=== PATIENT | female | born 1945 | race Caucasian/White ===

== ENCOUNTER 2023-02-18 10:20 | Inpatient (IN) | payer MEDICARE, OTHER, SELFPAY ==
[2023-02-18] VITALS (12 sets, daily range): BP systolic 149–150; BP diastolic 63–70; PULSE 67–110; RESP 18–28; TEMP 36.7–36.8; O2SAT 94–96; BMI 24.1; BMI 25.8
--- NOTE | 2023-02-18 10:42 | ECG_ITS ---
[facility] Test Date: 2023-02-18 Pat Name: JOSE BROWN Department: Room: - Gender: Female [employer] Lead: : 1945 Requested By: Order Number: [id number] Reading MD: VIKASH PITTS Measurements Intervals [place] Rate: 99 P: 105 VA: 136 QRS: 169 QRSD: 82 T: 54 QT: 278 QTc: 334 Interpretive Statements 1100 Sinus rhythm 1470 with occasional supraventricular premature complexes [address] depression [address] & Twave abnormality 5120 Possible right ventricular hypertrophy 8305 Short QTc interval 0101 Possible arm leads reversed, check lead requested 9150 abnormal ECG No previous ECG available for comparison Electronically Signed On 02-19-2023 7:02:51 EDT by VIKASH PITTS
--- NOTE | 2023-02-18 10:48 | XR_ITS ---
The [address] [address] Patient Name: JOSE BROWN MRN: [id number] date: 1945 Sex: F Assigned Patient Location: ER Current Patient Location: ER Accession/Order Number: [id number] Exam Date: 02/18/2023 11:10 Report Date: 02/18/2023 11:24 At the request of: SARI BOWSER Procedure: XR chest 1V EXAMINATION: XR chest 1V HISTORY: shortness of breath COMPARISON: No relevant comparison available. TECHNIQUE: AP portable FINDINGS: LUNGS: No significant pulmonary parenchymal abnormalities. Linear opacity left midlung atelectasis or scar is favored VASCULATURE: No increased pulmonary vasculature. PLEURA: No pneumothorax, effusion, or pleural thickening. CARDIAC: No cardiomegaly or cardiac silhouette abnormality. MEDIASTINUM: No visible mass or adenopathy. Aortic atherosclerosis BONES: No fracture or visible bone lesion. OTHER: Negative. XR/XR chest 1V IMPRESSION: Minimal left lung atelectasis/scar Electronically authenticated by: KENDRICK CAMACHO Date: 02/18/2023 11:24
[2023-02-18 11:00] LABS: Basophils Percent Auto 0.2 % (0.2-2.0); Eosinophils Percent Auto 0.1 % (0.9-7.0); Hematocrit 30.5 % (36.0-48.0); Hemoglobin 10.1 g/dL (12.0-16.0); Immature Granulocytes Abs Auto 0.21 10^3/uL (0.00-0.03); Immature Granulocytes Pct Auto 1.1 % (0.0-0.5); Lymphocytes Percent Auto 5.6 % (20.5-60.0); Mean Corpuscular HGB Conc 33.1 g/dL (29.9-35.2); Mean Corpuscular Hemoglobin 29.8 pg (26.7-34.0); Mean Platelet Volume 9.2 fL (9.5-13.5); Monocytes Absolute Auto 1.1 10^3/uL (0.3-0.8); Monocytes Percent Auto 5.9 % (1.7-12.0); Neutrophils Absolute Auto 16.1 10^3/uL (1.4-6.5); Neutrophils Percent Auto 87.1 % (43.0-75.0); Platelet Count 478 10^3/uL (150-450); Red Blood Count 3.39 10^6/uL (4.20-5.40); Red Cell Distribution Width 15.8 % (11.0-15.0); White Blood Count 18.4 10^3/uL (4.0-11.0)
[2023-02-18 11:20] LABS: Anion Gap 13.9; BUN Creatinine Ratio 24.1; Calcium 8.9 mg/dL (8.5-10.1); Carbon Dioxide 24.7 mmol/L (21.0-32.0); Chloride 106 mmol/L (98-107); Estimated GFR (African America >60 (>=60); Estimated GFR (Non-African Ame >60 (>=60); Glucose 128 mg/dL (74-106); Sodium 142 mmol/L (136-145)
--- NOTE | 2023-02-18 11:20 | ED.SOB1 ---
HPI - SOB/Dyspnea General Chief Complaint: Shortness of Breath/Dyspnea Stated Complaint: SHORTNESS OF BREATH Time Seen by Provider: 02/18/23 10:30 Source: patient Mode of arrival: ambulance Limitations: physical limitation Limitations comment: right arm fracture, pelvic fracture History of Present Illness HPI Narrative: The patient fell and fracture her right humerus and right pelvis. She was evaluated and admitted to a hospital in [place] where the accident occurred. She refused surgery at that facility and was transferred to rehab facility in [facility]. She was supposed to have a 2pm appointment with the orthopedic surgeon to evaluate her right humerus but she developed increased shortness of breath this mornign and was brought to the ED for evaluation. She has COPD and has been getting antibiotics for pneumonia for almost 3 weeks now, she told me. no prior history of DVT or PE. Related Data Allergies Allergy/AdvReac Type Severity Reaction Status Date / Time No Known Drug Allergies Allergy Verified 02/18/23 10:35 Exam Narrative Exam Narrative: Nurses notes and vital signs reviewed and patient is not hypoxic while wearing 2LPM NC. afebrile General: Well-appearing and in no apparent distress. Skin: Warm, dry, no pallor noted. Head: Normocephalic, atraumatic. Neck: Supple, non-tender. Eye: Pupils are equal, round and EOMI. No scleral icterus. Ears, Nose, Mouth, and Throat: Oral mucosa is moist Cardiovascular: Tachycardia. Respiratory: No accessory muscle use or respiratory distress. Lungs are clear to auscultation, no wheezing, rales or rhonchi Musculoskeletal: normal ROM, no calf or popliteal tenderness, no lower extremity edema/swelling GI: Abdomen is soft, non-distended. Normal bowel sounds. No tenderness to palpation. No rebound, guarding, or rigidity noted. Neurological: A&O x4. No cranial nerve dysfunction observed. No truncal ataxia. Moves all extremities. Sensation intact. Psychiatric: Cooperative and interactive. Normal mood and affect. Constitutional Vital Signs, click to edit/add: Last Vital Signs Temp 98.2 F 02/18/23 10:30 Pulse 93 H 02/18/23 10:31 Resp 28 H 02/18/23 10:31 BP 150/66 H 02/18/23 10:31 Pulse Ox 94 L 02/18/23 10:38 O2 Del Method Nasal Cannula 02/18/23 10:38 O2 Flow Rate 2 02/18/23 10:38 Course Vital Signs Vital signs: Vital Signs Temperature 98.2 F 02/18/23 10:30 Pulse Rate 110 H 02/18/23 10:30 Respiratory Rate 24 02/18/23 10:30 Blood Pressure 150/66 H 02/18/23 10:30 Pulse Oximetry 95 02/18/23 10:30 Oxygen Delivery Method Nasal Cannula 02/18/23 10:30 Oxygen Delivery Flow Rate 2 02/18/23 10:30 Temperature 98.2 F 02/18/23 10:30 Pulse Rate 93 H 02/18/23 10:31 Respiratory Rate 28 H 02/18/23 10:31 Blood Pressure 150/66 H 02/18/23 10:31 Pulse Oximetry 94 L 02/18/23 10:38 Oxygen Delivery Method Nasal Cannula 02/18/23 10:38 Oxygen Delivery Flow Rate 2 02/18/23 10:38 MDM - SOB/Dyspnea MDM Narrative Medical decision making narrative: Patient was placed on equipment service lead and EKG obtained. Blood drawn and sent for evaluation. chest x-ray obtained. Once her kidney function was found to be exceptional for IV contrast administration, she was sent for CT angio of the chest, due to her history of fracture, immobilization and risk for clot formation. she is found to have a right lobar segmental and subsegmental pulmonary embolism, per Dr. Camacho, who called to discuss the results with me. Dr. Candelaria agreed to admit the patient to the hospital for further intervention. She will start the patient on Lovenox and the transition to oral therapy while in the hospital. The patient and family informed of results and were agreeable to admission. Lab Data Attestation: I reviewed the patient's lab results. Labs: Lab Results 02/18/23 02/18/23 02/18/23 Range/Units 10:40 12:05 12:35 WBC 18.4 H (4.0-11.0) 10^3/uL RBC 3.39 L (4.20-5.40) 10^6/uL Hgb 10.1 L (12.0-16.0) g/dL Hct 30.5 L (36.0-48.0) % MCV 90.0 (81.0-99.0) fL MCH 29.8 (26.7-34.0) pg MCHC 33.1 (29.9-35.2) g/dL RDW 15.8 H (11.0-15.0) % Plt Count 478 H (150-450) 10^3/uL MPV 9.2 L (9.5-13.5) fL Neut % (Auto) 87.1 H (43.0-75.0) % Lymph % (Auto) 5.6 L (20.5-60.0) % [place] % (Auto) 5.9 (1.7-12.0) % Eos % (Auto) 0.1 L (0.9-7.0) % Baso % (Auto) 0.2 (0.2-2.0) % Neut # (Auto) 16.1 H (1.4-6.5) 10^3/uL Lymph # (Auto) 1.0 L (1.2-3.8) 10^3/uL [place] # (Auto) 1.1 H (0.3-0.8) 10^3/uL Eos # (Auto) 0.0 (0.0-0.7) 10^3/uL Baso # (Auto) 0.0 (0.0-0.1) 10^3/uL Abs Immat Gran (auto) 0.21 H (0.00-0.03) 10^3/uL Imm/Tot Granulo (auto) 1.1 H (0.0-0.5) % Puncture Site Lr ABG pH 7.492 H (7.350-7.450) ABG pCO2 30.3 L (35.0-45.0) mmHg ABG pO2 82.2 (80.0-100.0) mmHg ABG HCO3 23.2 (22.0-26.0) mmol/L ABG O2 Saturation 97.7 % ABG Base Excess -0.1 (-2.0-2.0) mmol/L Mark Test Positive (POSITIVE) O2 Liters/Min 2 Sodium 142 (136-145) mmol/L Potassium 2.6 L* (3.5-5.1) mmol/L Chloride 106 (98-107) mmol/L Carbon Dioxide 24.7 (21.0-32.0) mmol/L Anion Gap 13.9 BUN 21.0 H (7.0-18.0) mg/dL Creatinine 0.87 (0.55-1.02) mg/dL Est GFR ( Amer) >60 (>=60) Est GFR (Non-Af Amer) >60 (>=60) BUN/Creatinine Ratio 24.1 Glucose 128 H (74-106) mg/dL Calcium 8.9 (8.5-10.1) mg/dL Troponin I High Sens 13.0 (4.0-51.3) pg/mL NT-Pro-B Natriuret Pep 1224.0 (<=1800.0) pg/mL SARS-CoV-2 (PCR) Negative (NEGATIVE) ABG Data Attestation: I have reviewed the pertinent ABG results. Imaging Data Chest x-ray: Radiologist's impression: Patient Name: JOSE BROWN MRN: [facility]:[id number] date: 1945 Sex: F Assigned Patient Location: ER Current Patient Location: ER Accession/Order Number: [id number] Exam Date: 02/18/2023 11:10 Report Date: 02/18/2023 11:24 At the request of: SARI BOWSER Procedure: XR chest 1V EXAMINATION: XR chest 1V HISTORY: shortness of breath COMPARISON: No relevant comparison available. TECHNIQUE: AP portable FINDINGS: LUNGS: No significant pulmonary parenchymal abnormalities. Linear opacity left midlung atelectasis or scar is favored VASCULATURE: No increased pulmonary vasculature. PLEURA: No pneumothorax, effusion, or pleural thickening. CARDIAC: No cardiomegaly or cardiac silhouette abnormality. MEDIASTINUM: No visible mass or adenopathy. Aortic atherosclerosis BONES: No fracture or visible bone lesion. OTHER: Negative. IMPRESSION: Minimal left lung atelectasis/scar Electronically authenticated by: KENDRICK CAMACHO Date: 02/18/2023 11:24 CT scan - chest: Radiologist's impression: Patient Name: JOSE BROWN MRN: [facility]:[id number] date: 1945 Sex: F Assigned Patient Location: ER Current Patient Location: ER Accession/Order Number: [id number] Exam Date: 02/18/2023 12:12 Report Date: 02/18/2023 12:59 At the request of: SARI BOWSER Procedure: CT angio chest EXAMINATION: CT angio chest HISTORY: shortness of breath, hx fracture and immobility COMPARISON: No relevant comparison available. TECHNIQUE: Multi-planar CT images were created with IV contrast. Axial, Coronal, and Sagittal images. Dose reduction techniques were achieved by using automated exposure control and/or adjustment of mA and/or kV according to patient size and/or use of iterative reconstruction technique. FINDINGS: LUNGS: Calcified tracheobronchial tree. Mild diffuse centrilobular emphysema with an upper lobe predominance. Scattered subcentimeter pulmonary nodules the largest is mildly spiculated measuring 8 mm right upper lobe axial image #17. Partial consolidation of both lower lobes PLEURA: 1.7 cm right and 2.1 cm left pleural effusions VASCULATURE: Multiple filling defects demonstrated in the right lobar segmental and subsegmental pulmonary arteries. Minimal filling defect left lower lobe subsegmental pulmonary arteries MORGAN: No mass or adenopathy. MEDIASTINUM: No mass or adenopathy. CARDIAC: No enlargement, pericardial thickening, or significant calcification. AORTA: No aortic aneurysm or dissection. Mild atherosclerosis CHEST WALL: No mass or axillary adenopathy. BONES: Complex right humeral head fracture LIMITED ABDOMEN: Diffuse hypoattenuation of the liver, hepatic steatosis. Bilateral extrarenal pelvis/hydronephrosis only partially visualized OTHER: Findings discussed with Dr. bowser by telephone 12:59 PM IMPRESSION: Moderate right sided pulmonary emboli without evidence of right ventricular strain Electronically authenticated by: KENDRICK CAMACHO Date: 02/18/2023 12:59 ECG Data Interpretation: EKG interpretation: Emergency Department physician interpretation. Normal sinus rhythm at 99bpm. right ventricular hypertrophy, short QTc interval, nonspecific ST-T wave changes. No ST segment elevation or depression. Discharge Plan Discharge Chief Complaint: Shortness of Breath/Dyspnea Clinical Impression: Pulmonary embolism Patient Disposition: Admitted As Inpatient Time of Disposition Decision: 13:43 Additional Instructions: Dr Candelaria, med/surg w telemetry
[2023-02-18 11:27] LABS: Potassium 2.6 mmol/L (3.5-5.1)
[2023-02-18 12:16] LABS: ABG PCO2 30.3 mmHg (35.0-45.0); pH ABG 7.492 (7.350-7.450)
[2023-02-18 12:17] LABS: Allen Test POSITIVE (POSITIVE); Base Excess ABG -0.1 mmol/L (-2.0-2.0); HCO3 ABG 23.2 mmol/L (22.0-26.0); Liters per Minute 2; O2 Mode NC; Oxygen Saturation ABG 97.7 %; PO2 ABG 82.2 mmHg (80.0-100.0); Puncture Site LR
--- NOTE | 2023-02-18 12:20 | CT_ITS ---
The [address] [address] Patient Name: JOSE BROWN MRN: [facility]:[id number] date: 1945 Sex: F Assigned Patient Location: ER Current Patient Location: ER Accession/Order Number: [id number] Exam Date: 02/18/2023 12:12 Report Date: 02/18/2023 12:59 At the request of: SARI BOWSER Procedure: CT angio chest EXAMINATION: CT angio chest HISTORY: shortness of breath, hx fracture and immobility COMPARISON: No relevant comparison available. TECHNIQUE: Multi-planar CT images were created with IV contrast. Axial, Coronal, and Sagittal images. Dose reduction techniques were achieved by using automated exposure control and/or adjustment of mA and/or kV according to patient size and/or use of iterative reconstruction technique. FINDINGS: LUNGS: Calcified tracheobronchial tree. Mild diffuse centrilobular emphysema with an upper lobe predominance. Scattered subcentimeter pulmonary nodules the largest is mildly spiculated measuring 8 mm right upper lobe axial image #17. Partial consolidation of both lower lobes PLEURA: 1.7 cm right and 2.1 cm left pleural effusions VASCULATURE: Multiple filling defects demonstrated in the right lobar segmental and subsegmental pulmonary arteries. Minimal filling defect left lower lobe subsegmental pulmonary arteries MORGAN: No mass or adenopathy. MEDIASTINUM: No mass or adenopathy. CARDIAC: No enlargement, pericardial thickening, or significant calcification. AORTA: No aortic aneurysm or dissection. Mild atherosclerosis CHEST WALL: No mass or axillary adenopathy. BONES: Complex right humeral head fracture LIMITED ABDOMEN: Diffuse hypoattenuation of the liver, hepatic steatosis. Bilateral extrarenal pelvis/hydronephrosis only partially visualized OTHER: Findings discussed with Dr. bowser by telephone 12:[address]/CT angio chest IMPRESSION: Moderate right sided pulmonary emboli without evidence of right ventricular strain Electronically authenticated by: KENDRICK CAMACHO Date: 02/18/2023 12:59
[2023-02-18 13:05] LABS: SARS-CoV-2 Ag NEGATIVE (NEGATIVE)
[2023-02-18] MEDS: POTASSIUM CHLORIDE 10 MEQ ER TABLET 40 MEQ PO (14:25)
--- NOTE | 2023-02-18 14:25 | P.HP_ITS ---
H&P: HPI History of Present Illness Chief complaint: SHORTNESS OF BREATH, PULMONARY EMBOLISM Narrative: patient is a 77-year-old female with a recent humeral head fracture hip fracture and pelvic fracture after falling in [facility] several weeks ago. She was admitted to a hospital in [place] for about two weeks and was recently transferred back home to the [place] where she has been doing rehab. She was supposed to be seeing her orthopedic doctor for further evaluation today when she became more short of breath after getting a breathing treatment. They found her to be more hypoxic and she was sent to the Emergency Room. She was found to have a rate sided pulmonary embolus was placed on oxygen and was asked we were asked to admit for further evaluation. She has been pretty immobile since her multiple fractures she had been getting her for lactic heparin at the rehab facility. She denies any past history of deep vein thromboses or PEs. Discussed with the family who is also present that we'll place her on therapeutic Lovenox and bridge her over to L [place], echocardiogram is pending. Intending pain control for fractures. At the time of exam patient is very pleasant and appears in no acute respiratory distress she denies any current issues. Review of Systems ROS Narrative ROS: a complete review of systems were reviewed with patient and are positive as below or listed in History of Chief Complaint. General: no fever, chills, night sweats Head: no headache, trauma, visual changes, nausea or vomiting Skin: no reported rashes, itching or sores Eyes: no blurriness of vision Ears: no reported hearing loss, vertigo, earache, or tinnitus Throat: no sore throat, hoarseness, swelling of neck, or tongue pain Heart: no chest pain Lungs: shortness of breath GI: no diarrhea or vomiting/nausea Urinary: no urinary urgency, frequency or pain Neuro: no numbness or tingling HEM: no bleeding issues or bruising ENDO: no thyroid problems Psych: no anxiety or depression Meds Home Medications and Allergies Home Medications Medication Instructions Recorded Confirmed Type albuterol sulfate 2.5 mg/3 mL 2.5 mg inhalation QID PRN 02/18/23 02/18/23 History (0.083 %) solution for nebulization shortness of breath or wheezing albuterol sulfate 90 mcg/actuation 2 inh inhalation Q6H PRN shortness 02/18/23 02/18/23 History breath activated powder inhaler of breath or wheezing atorvastatin 20 mg tablet 20 mg PO DAILY 02/18/23 02/18/23 History cholecalciferol (vitamin D3) 25 2,000 unit PO DAILY 02/18/23 02/18/23 History mcg (1,000 unit) capsule fluticasone fur. 200 mcg-umeclid 1 inh inhalation Q24H 02/18/23 02/18/23 History 62.5 mcg-vilant 25 mcg inhalat.powder (Trelegy Ellipta) heparin (porcine) 5,000 unit/mL (1 5,000 unit subcut Q12H 02/18/23 02/18/23 History mL) injection cartridge loratadine 10 mg tablet (Allergy 10 mg PO DAILY 02/18/23 02/18/23 History Relief (loratadine)) promethazine 25 mg tablet 25 mg PO .QD PRN nausea 02/18/23 02/18/23 History Allergies Allergy/AdvReac Type Severity Reaction Status Date / Time No Known Drug Allergies Allergy Verified 02/18/23 10:35 Exam Narrative Exam Narrative: General: Patient is alert, and oriented to person, place and time with normal affect, proper hygiene Skin: multiple ecchymoses Head: atraumatic, acephalic Eyes: PERRLA, no nystagmus present, conjunctiva clear, no scleral icterus Ears: normal Tympanic Membrane, normal gross auditory acuity Nose: symmetric, no discharge, no maxillary or frontal sinus tenderness Mouth/Throat: no erythema, exudate, or tonsillar enlargement, normal dentition Neck: no masses palpated, normal thyroid, no JVD or audible carotid bruits Heart: Normal rate and rhythm, no murmurs/rubs/gallops Lungs: no audible wheezes, crackles and normal breath sounds all lung recinos Abdomen: Normal audible bowel sounds, no distension, No palpable masses, no organomegaly, no rebound/guarding/ or rigidity Musculoskeletal: right arm is in immobilizer Vascular: Normal carotid, radial, femoral, posterior tibial, and dorsalis pedis pulses Lymph: no supraclavicular, axillary, or anterior/posterior cervical adenopathy Neuro: CN II-X grossly intact, normal sensation upper and lower extremities Constitutional Vital Signs, click to edit/add: Last Vital Signs Temp 98.2 F 02/18/23 10:30 Pulse 89 02/18/23 10:31 Resp 26 H 02/18/23 10:31 BP 150/66 H 02/18/23 10:31 Pulse Ox 94 L 02/18/23 10:38 O2 Del Method Nasal Cannula 02/18/23 10:38 O2 Flow Rate 2 02/18/23 10:38 Results Labs Labs: Short CBC 02/18/23 Range/Units 10:40 WBC 18.4 H (4.0-11.0) 10^3/uL Hgb 10.1 L (12.0-16.0) g/dL Hct 30.5 L (36.0-48.0) % Plt Count 478 H (150-450) 10^3/uL BMP 02/18/23 10:40 Sodium 142 Potassium 2.6 L* Chloride 106 Carbon Dioxide 24.7 BUN 21.0 H Creatinine 0.87 Glucose 128 H Calcium 8.9 ABG ABG results: 02/18/23 12:05 ABG pH 7.492 H ABG pCO2 30.3 L ABG pO2 82.2 ABG HCO3 23.2 ABG O2 Saturation 97.7 ABG Base Excess -0.1 Assessment and Plan Assessment and Plan (1) Pulmonary embolism: Assessment and Plan: will place on therapeutic Lovenox and bridged to Eliquis tomorrow.oxygen therapy as needed placed was placed on telemetry echocardiogram pending (2) Closed fracture of anatomical neck of humerus: Assessment and Plan: continue pain control and will follow up with [facility] outpatient (3) Pelvic fracture: Assessment and Plan: see #2 (4) Hyperlipidemia: Assessment and Plan: continue atorvastatin Plan patient is a full code Patient is getting Lovenox therapeutic dose for active PE Patient is placed in observation status and is not expected to stay more than two midnights
--- NOTE | 2023-02-18 16:14 | SWNOTE1 ---
Pt is from [facility].
[2023-02-18] MEDS: ENOXAPARIN SODIUM 80 MG/0.8 ML SYRINGE 65 MG SUBQ (18:05)
[2023-02-18] MEDS: POTASSIUM CHLORIDE IN 0.9%NACL 1,000 ML 100 MEQ IV (18:05)
[2023-02-18] MEDS: ACETAMINOPHEN 325 MG TABLET PO (19:45)
[2023-02-18 19:51] LABS: Lactate/Lactic Acid 2.5 mmol/L (0.4-2.0)
[2023-02-18] MEDS: IPRATROPIUM/ALBUTEROL SULFATE 3 ML AMPUL.NEB IH (22:24)
[2023-02-18] MEDS: BUDESONIDE 0.5 MG/2 ML AMPULE NEB IH (22:24)
[2023-02-19] VITALS (14 sets, daily range): BP systolic 125–128; BP diastolic 59–62; PULSE 86–111; RESP 18–20; TEMP 36.6–36.9; O2SAT 92–98
[2023-02-19] MEDS: DIPHENHYDRAMINE HCL 50 MG/ML (1ML) VIAL 25 MG IV (04:09)
[2023-02-19] MEDS: POTASSIUM CHLORIDE IN 0.9%NACL 1,000 ML 100 MEQ IV (04:10)
[2023-02-19 05:34] LABS: A. calcoaceticus-baumannii Cpx NOT DETECTED (NOT DETECTE); Bacteroides fragilis NOT DETECTED (NOT DETECTE); Candida albicans NOT DETECTED (NOT DETECTE); Candida auris NOT DETECTED (NOT DETECTE); Candida glabrata NOT DETECTED (NOT DETECTE); Candida krusei NOT DETECTED (NOT DETECTE); Candida parapsilosis NOT DETECTED (NOT DETECTE); Candida tropicalis NOT DETECTED (NOT DETECTE); Cryptococcus neoformans/gattii NOT DETECTED (NOT DETECTE); Enterobacter cloacae complex NOT DETECTED (NOT DETECTE); Enterobacterales NOT DETECTED (NOT DETECTE); Enterococcus faecalis NOT DETECTED (NOT DETECTE); Enterococcus faecium NOT DETECTED (NOT DETECTE); Haemophilus influenzae NOT DETECTED (NOT DETECTE); Klebsiella aerogenes NOT DETECTED (NOT DETECTE); Klebsiella pneumoniae group NOT DETECTED (NOT DETECTE); Listeria monocytogenes NOT DETECTED (NOT DETECTE); Neisseria meningitidis NOT DETECTED (NOT DETECTE); Proteus spp. NOT DETECTED (NOT DETECTE); Pseudomonas aeruginosa NOT DETECTED (NOT DETECTE); Salmonella spp. NOT DETECTED (NOT DETECTE); Serratia marcescens NOT DETECTED (NOT DETECTE); Staphylococcus epidermidis NOT DETECTED (NOT DETECTE); Staphylococcus lugdunensis NOT DETECTED (NOT DETECTE); Stenotrophomonas maltophilia NOT DETECTED (NOT DETECTE); Streptococcus agalactiae NOT DETECTED (NOT DETECTE); Streptococcus pneumoniae NOT DETECTED (NOT DETECTE); Streptococcus pyogenes NOT DETECTED (NOT DETECTE); Streptococcus spp. NOT DETECTED (NOT DETECTE)
[2023-02-19] MEDS: ENOXAPARIN SODIUM 80 MG/0.8 ML SYRINGE 65 MG SUBQ (05:36)
[2023-02-19] MEDS: IPRATROPIUM/ALBUTEROL SULFATE 3 ML AMPUL.NEB IH ×2 (05:56→12:13)
[2023-02-19 06:12] LABS: Basophils Percent Auto 0.2 % (0.2-2.0); Eosinophils Absolute Auto 0.1 10^3/uL (0.0-0.7); Eosinophils Percent Auto 0.3 % (0.9-7.0); Hematocrit 26.6 % (36.0-48.0); Hemoglobin 8.5 g/dL (12.0-16.0); Immature Granulocytes Abs Auto 0.19 10^3/uL (0.00-0.03); Immature Granulocytes Pct Auto 1.1 % (0.0-0.5); Lymphocytes Absolute Auto 1.5 10^3/uL (1.2-3.8); Lymphocytes Percent Auto 8.2 % (20.5-60.0); Mean Corpuscular Hemoglobin 29.3 pg (26.7-34.0); Mean Corpuscular Volume 91.7 fL (81.0-99.0); Mean Platelet Volume 9.5 fL (9.5-13.5); Monocytes Absolute Auto 1.1 10^3/uL (0.3-0.8); Monocytes Percent Auto 5.9 % (1.7-12.0); Neutrophils Absolute Auto 15.1 10^3/uL (1.4-6.5); Neutrophils Percent Auto 84.3 % (43.0-75.0); Platelet Count 401 10^3/uL (150-450); Red Cell Distribution Width 16.1 % (11.0-15.0); White Blood Count 17.9 10^3/uL (4.0-11.0)
[2023-02-19 06:28] LABS: INR 1.03; Prothrombin Time 10.9 sec (9.0-11.6)
[2023-02-19 06:34] LABS: Alanine Aminotransferase 39 U/L (14-59); Albumin Globulin Ratio 0.5; Albumin Level 2.1 g/dL (3.4-5.0); Alkaline Phosphatase 120 U/L (46-116); Anion Gap 12.1; Aspartate Amino Transferase 22 U/L (15-37); BUN Creatinine Ratio 24.7; Bilirubin Total 0.5 mg/dL (0.2-1.0); Calcium 8.4 mg/dL (8.5-10.1); Carbon Dioxide 22.1 mmol/L (21.0-32.0); Chloride 112 mmol/L (98-107); Estimated GFR (African America >60 (>=60); Estimated GFR (Non-African Ame >60 (>=60); Globulin 4.5 g/dL; Glucose 87 mg/dL (74-106); Potassium 3.2 mmol/L (3.5-5.1); Sodium 143 mmol/L (136-145); Total Protein 6.6 g/dL (6.4-8.2)
[2023-02-19 06:56] LABS: Staphylococcus spp. DETECTED (NOT DETECTE)
--- NOTE | 2023-02-19 07:08 | CA_ITS ---
Patient: JOSE BROWN Exam Date: 02/19/2023 : 1945 Gender:F Ordering : OG BRICEÑO . Admission #: [id number] Family : MIGUEL CAMPOS Order #: [id number] CLICK HERE TO VIEW EXAM ECHOCARDIOGRAM REPORT PROCEDURE: CA ECHO DOPPLER COMPLETE INDICATIONS: new onset pulmonary embolism COMPARISON: None. DESCRIPTION: COMPLETE ECHOCARDIOGRAM Real-time transthoracic echocardiography with 2D, M-mode, spectral and color flow Doppler performed. QUALITY: Technical quality was good. LEFT VENTRICLE: Normal chamber size. Normal left ventricular wall thickness. Global left ventricular systolic function is normal. LV EF: Estimated left ventricular ejection fraction is 60-65%. DIASTOLIC: Normal diastolic function. ATRIAL SEPTUM: LEFT ATRIUM: Normal chamber size. RIGHT ATRIUM: Normal chamber size. RIGHT VENTRICLE: Normal chamber size. Normal right ventricular systolic function. TRICUSPID VALVE: Normal mobility and thickness. No stenosis with trivial regurgitation. Moderate pulmonary hypertension. RVSP 50 mmHg MITRAL VALVE: Normal mobility and thickness. No evidence of mitral valve stenosis. There is no mitral annular calcification. Trivial mitral regurgitation. AORTIC VALVE: Normal trileaflet appearance. No visible sclerosis. Normal leaflet mobility. No evidence of aortic valve stenosis. DVI 0.6No aortic regurgitation. AORTIC ROOT: Normal diameter and appearance. PULMONIC VALVE: Normal thickness and mobility. No stenosis. No regurgitation. PERICARDIUM: No evidence of pericardial effusion. IVC: Collapses with inspirations. Normal size. PLEURA: CONCLUSION: 1. Normal left ventricular systolic function. LVEF is 60 to 65%. 2. Normal right ventricular size and systolic function. 3. Normal diastolic function. 4. No significant valvular dysfunction. 5. Moderately elevated right-sided pressures. RVSP is 50 mmHg. Adult Echocardiography Procedure Report Left Ventricle LVEDD (3.7 - 5.6 cm): 4.30 cm LVESD (2.2 - 4.0 cm): 2.55 cm LVIVS thickness (0.6 - 1.2 cm): 0.90 cm LVPW thickness (0.5 - 1.0 cm): 0.77 cm e': 0.14 m/s E - e': 4.73 LVOT Max Gradient: 3.92 mm[Hg], 3.45 mm[Hg] LVOT Area (cm2): 0.96 m/s Peak Velocity (LVOT): 0.99 m/s, 0.93 m/s Mean Velocity (LVOT): 0.70 m/s LVOT Diameter 1.78 cm Left Ventricular Ejection Fraction: 62.94 % Left Atrium LA Volume Index (2D A2C): 24.81 ml/m2 Left Atrium Systolic Dimension: 2.92 cm Mitral Valve MV E to A Ratio: 1.03 Mitral Valve A-Wave Peak Velocity: 0.64 m/s Mitral Valve E-Wave Peak Velocity: 0.66 m/s Right Ventricle RV Internal Diastolic Dimension: 4.00 cm Aorta AO Root Diam: 3.12 cm Ascending Ao Diam: 2.62 cm Aortic Valve AoV Area ([place]): 1.45 cm2, 1.46 cm2, 1.45 cm2 AoV Area (VTI): 1.44 cm2, 1.46 cm2, 1.42 cm2 Peak Velocity(Antegrade Flow): 1.69 m/s, 1.59 m/s Peak Gradient(Antegrade Flow): 11.39 mm[Hg], 10.12 mm[Hg] Mean Velocity(Antegrade Flow): 1.11 m/s, 1.09 m/s Mean Gradient(Antegrade Flow): 5.62 mm[Hg], 5.40 mm[Hg] Velocity Time Integral: 29.55 cm, 30.18 cm Tricuspid Valve Peak Velocity (Regurgitant Flow): 3.18 m/s, 3.44 m/s, 3.32 m/s, 3.37 m/s Pulmonic Valve Mean Gradient: 3.08 mm[Hg], 3.55 mm[Hg] Mean Velocity: 0.82 m/s, 0.89 m/s Peak Velocity: 1.21 m/s, 1.22 m/s Peak Gradient: 5.92 mm[Hg], 5.83 mm[Hg], 5.83 mm[Hg] Right Atrium Right Atrium Systolic Pressure: 67.44 ml, 67.44 ml Dictated by: Marcelo Marvin M.D. on 02/20/2023 at 17:00 Approved by: Marcelo Marvin M.D. on 02/20/2023 at 17:03
--- NOTE | 2023-02-19 09:24 | PM.DS1 ---
DS: Providers Provider Date of admission: 02/18/23 13:53 Primary care physician: Non-Staff Physician, Admitting clinician: Anushka Candelaria Consults: 02/18/23 14:16 Occupational Therapy Eval and Treat Routine Physical Therapy Eval and Treat Routine Discharging clinician: Anushka Candelaria DS: Diagnosis Discharge Diagnosis (1) Pulmonary embolism: (2) Closed fracture of anatomical neck of humerus: (3) Pelvic fracture: (4) Hyperlipidemia: Plan patient is a 77-year-old female with a recent humeral head fracture hip fracture and pelvic fracture after falling in [facility] [address] [facility] several weeks ago. She was admitted to a hospital in [place] for about two weeks and was recently transferred back home to the [place] where she has been doing rehab. She was supposed to be seeing her orthopedic doctor for further evaluation today when she became more short of breath after getting a breathing treatment. They found her to be more hypoxic and she was sent to the Emergency Room. She was found to have a rate sided pulmonary embolus was placed on oxygen and was asked we were asked to admit for further evaluation. She has been pretty immobile since her multiple fractures she had been getting her for lactic heparin at the rehab facility. She denies any past history of deep vein thromboses or PEs. Discussed with the family who is also present that we'll place her on therapeutic Lovenox and bridge her over to L [place], echocardiogram is pending. Intending pain control for fractures. At the time of exam patient is very pleasant and appears in no acute respiratory distress she denies any current issues. no overnight issues reported. DS: Summary Hospital Course Hospital Course: (1) Pulmonary embolism: ?Assessment and Plan: will place on therapeutic Lovenox and bridged to Eliquis will need to continue this for 6 months. (2) Closed fracture of anatomical neck of humerus: ?Assessment and Plan: continue pain control and will follow up with [facility] (3) Pelvic fracture: ?Assessment and Plan: see #2 (4) Hyperlipidemia: ?Assessment and Plan: continue atorvastatin return to nursing rehab facility today, will follow results of echo. positive blood culture for staph, most likely contaminent. Time Spent with Patient Time attestation: Total time spent providing and/or coordinating discharge services: Exam Narrative Exam Narrative: General: Patient is alert, and oriented to person, place and time with normal affect, proper hygiene Skin: multiple ecchymoses Heart: Normal rate and rhythm, no murmurs/rubs/gallops Lungs: no audible wheezes, crackles and normal breath sounds all lung recinos Abdomen: Normal audible bowel sounds, no distension, No palpable masses, no organomegaly, no rebound/guarding/ or rigidity Musculoskeletal: right arm is in immobilizer Vascular: Normal carotid, radial, femoral, posterior tibial, and dorsalis pedis pulses Lymph: no supraclavicular, axillary, or anterior/posterior cervical adenopathy Neuro: CN II-X grossly intact, normal sensation upper and lower extremities Constitutional Vital Signs, click to edit/add: Last Vital Signs Temp 98.5 F 02/19/23 05:25 Pulse 107 H 02/19/23 07:53 Resp 20 02/19/23 06:02 BP 125/59 H 02/19/23 05:25 Pulse Ox 97 02/19/23 06:02 O2 Del Method Nasal Cannula 02/19/23 06:02 O2 Flow Rate 2 02/19/23 06:02 DS: Data Data Completed and Pending Labs on day of discharge: Labs from last 24 hours 02/19/23 02/18/23 02/18/23 06:00 19:15 12:35 WBC 17.9 H RBC 2.90 L Hgb 8.5 L Hct 26.6 L MCV 91.7 MCH 29.3 MCHC 32.0 RDW 16.1 H Plt Count 401 MPV 9.5 Neut % (Auto) 84.3 H Lymph % (Auto) 8.2 L [place] % (Auto) 5.9 Eos % (Auto) 0.3 L Baso % (Auto) 0.2 Neut # (Auto) 15.1 H Lymph # (Auto) 1.5 [place] # (Auto) 1.1 H Eos # (Auto) 0.1 Baso # (Auto) 0.0 Abs Immat Gran (auto) 0.19 H Imm/Tot Granulo (auto) 1.1 H PT 10.9 INR 1.03 APTT <22.3 L Puncture Site ABG pH ABG pCO2 ABG pO2 ABG HCO3 ABG O2 Saturation ABG Base Excess Mark Test O2 Liters/Min Sodium 143 Potassium 3.2 L Chloride 112 H Carbon Dioxide 22.1 Anion Gap 12.1 BUN 21.0 H Creatinine 0.85 Est GFR ( Amer) >60 Est GFR (Non-Af Amer) >60 BUN/Creatinine Ratio 24.7 Glucose 87 Lactate 2.5 H* Calcium 8.4 L Total Bilirubin 0.5 AST 22 ALT 39 Alkaline Phosphatase 120 H Troponin I High Sens NT-Pro-B Natriuret Pep Total Protein 6.6 Albumin 2.1 L Globulin 4.5 Albumin/Globulin Ratio 0.5 Sam H. influenza (PCR) A.calcoaceticus-baumannii cmplx PCR Bacteroides fragilis Noemí albicans (PCR) Noemí auris (PCR) C. glabrata (PCR) C. krusei (PCR) C. parapsilosis (PCR) C. tropicalis (PCR) SARS-CoV-2 (PCR) Negative C. neoform/gattii (PCR) Enterobacterales (PCR) E. cloacae complex PCR Enterococc faecalis PCR Enterococc faecium PCR E. coli (PCR) Klebsiella aerogenes (PCR) Klebsiella oxytoca PCR K. pneumoniae group (PCR) List. monocytogenes PCR N. meningitidis (PCR) Proteus spp. (copies/mL) Salmonella spp. (PCR) Serratia marcescens PCR Staphylococcus sp PCR Staph aureus (PCR) mecA/C & MREJ Resist Gene mecA/C-Methicil Resis Gene mcr-1 Colistin Res Gene PCR Staph epidermidis (PCR) Staph lugdunensis (TEM-PCR) S. maltophilia (PCR) Streptococcus sp PCR Strep agalactiae (PCR) Strep pneumoniae (PCR) S. pyogenes (PCR) P. aeruginosa (PCR) Pepe/B-Vanco Res Genes blaIMP Car res Gene PCR KPC (blaKPC) Detect PCR NDM (blaNDM) Detect PCR OXA-48 Carbapenem Resis Gene (PCR) blaVIM Car Res Gene PCR CTX-M ESBL (PCR) 02/18/23 02/18/23 12:05 10:40 WBC 18.4 H RBC 3.39 L Hgb 10.1 L Hct 30.5 L MCV 90.0 MCH 29.8 MCHC 33.1 RDW 15.8 H Plt Count 478 H MPV 9.2 L Neut % (Auto) 87.1 H Lymph % (Auto) 5.6 L [place] % (Auto) 5.9 Eos % (Auto) 0.1 L Baso % (Auto) 0.2 Neut # (Auto) 16.1 H Lymph # (Auto) 1.0 L [place] # (Auto) 1.1 H Eos # (Auto) 0.0 Baso # (Auto) 0.0 Abs Immat Gran (auto) 0.21 H Imm/Tot Granulo (auto) 1.1 H PT INR APTT Puncture Site Lr ABG pH 7.492 H ABG pCO2 30.3 L ABG pO2 82.2 ABG HCO3 23.2 ABG O2 Saturation 97.7 ABG Base Excess -0.1 Mark Test Positive O2 Liters/Min 2 Sodium 142 Potassium 2.6 L* Chloride 106 Carbon Dioxide 24.7 Anion Gap 13.9 BUN 21.0 H Creatinine 0.87 Est GFR ( Amer) >60 Est GFR (Non-Af Amer) >60 BUN/Creatinine Ratio 24.1 Glucose 128 H Lactate Calcium 8.9 Total Bilirubin AST ALT Alkaline Phosphatase Troponin I High Sens 13.0 NT-Pro-B Natriuret Pep 1224.0 Total Protein Albumin Globulin Albumin/Globulin Ratio Sam H. influenza (PCR) Not detected A.calcoaceticus-baumannii cmplx PCR Not detected Bacteroides fragilis Not detected Noemí albicans (PCR) Not detected Noemí auris (PCR) Not detected C. glabrata (PCR) Not detected C. krusei (PCR) Not detected C. parapsilosis (PCR) Not detected C. tropicalis (PCR) Not detected SARS-CoV-2 (PCR) C. neoform/gattii (PCR) Not detected Enterobacterales (PCR) Not detected E. cloacae complex PCR Not detected Enterococc faecalis PCR Not detected Enterococc faecium PCR Not detected E. coli (PCR) Not detected Klebsiella aerogenes (PCR) Not detected Klebsiella oxytoca PCR Not detected K. pneumoniae group (PCR) Not detected List. monocytogenes PCR Not detected N. meningitidis (PCR) Not detected Proteus spp. (copies/mL) Not detected Salmonella spp. (PCR) Not detected Serratia marcescens PCR Not detected Staphylococcus sp PCR Detected A* Staph aureus (PCR) Not detected mecA/C & MREJ Resist Gene Not applicable mecA/C-Methicil Resis Gene Not applicable mcr-1 Colistin Res Gene PCR Not applicable Staph epidermidis (PCR) Not detected Staph lugdunensis (TEM-PCR) Not detected S. maltophilia (PCR) Not detected Streptococcus sp PCR Not detected Strep agalactiae (PCR) Not detected Strep pneumoniae (PCR) Not detected S. pyogenes (PCR) Not detected P. aeruginosa (PCR) Not detected Pepe/B-Vanco Res Genes Not applicable blaIMP Car res Gene PCR Not applicable KPC (blaKPC) Detect PCR Not applicable NDM (blaNDM) Detect PCR Not applicable OXA-48 Carbapenem Resis Gene (PCR) Not applicable blaVIM Car Res Gene PCR Not applicable CTX-M ESBL (PCR) Not applicable Discharge Plan Discharge Discharge Medications: New Eliquis 5 mg Tablet 5 mg PO BID Qty: 60 0RF Continued atorvastatin 20 mg tablet 20 mg PO DAILY Trelegy Ellipta 200-62.5-25 mcg blister with device 1 inh inhalation Q24H cholecalciferol (vitamin D3) 25 mcg (1,000 unit) capsule 2,000 unit PO DAILY promethazine 25 mg tablet 25 mg PO .QD PRN (Reason: nausea) albuterol sulfate 90 mcg/actuation aerosol powdr breath activated 2 inh inhalation Q6H PRN (Reason: shortness of breath or wheezing) loratadine [Allergy Relief (loratadine)] 10 mg tablet 10 mg PO DAILY albuterol sulfate 2.5 mg /3 mL (0.083 %) solution for nebulization 2.5 mg inhalation QID PRN (Reason: shortness of breath or wheezing) Discontinued heparin (porcine) 5,000 unit/mL (1 mL) cartridge 5,000 unit subcut Q12H 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 Forms: Portal Instructions Follow Up Appointments: return to [facility] and keep follow up appts as scheduled
[2023-02-19] MEDS: CHOLECALCIFEROL (VITAMIN D3) 25 MCG/1,000 UNITS TABLET 50 MCG PO (09:42)
[2023-02-19] MEDS: APIXABAN 5 MG TABLET PO (09:42)
[2023-02-19] MEDS: CETIRIZINE HCL 10 MG TABLET PO (09:46)
[2023-02-19] MEDS: BUDESONIDE 0.5 MG/2 ML AMPULE NEB IH (12:13)
--- NOTE | 2023-02-19 12:17 | RESP.RT ---
Pt placed on Room air trial
--- NOTE | 2023-02-19 13:32 | CM.NOTE ---
Rounds made with Dr. Candelaria, pt will discharge back to [facility] today and continue skilled rehab.
--- NOTE | 2023-02-19 14:52 | CM.NOTE ---
Important Message From Medicare discussed with pt, pt verbalizes understanding and signs paper. Original given to pt and copy placed on pt's chart.
[2023-02-19 15:49] LABS: SARS-CoV-2 NAA NOT DETECTED (NOT DETECTE)
== END 2023-02-19 16:50 | DRG 176 ==
LOC: ER 13:44 → MS 13:55
PROVIDERS: Admitting Provider Family Medicine; Emergency Provider Emergency Medicine; Visit Provider Internal Medicine
DX: I26.93 Single subsegmental thrombotic pulmonary embolism without acute cor pulmonale (principal); J44.9 Chronic obstructive pulmonary disease, unspecified; E78.5 Hyperlipidemia, unspecified; S42.291D Other displaced fracture of upper end of right humerus, subsequent encounter for fracture with routine healing; S32.9XXD Fracture of unspecified parts of lumbosacral spine and pelvis, subsequent encounter for fracture with routine healing; W19.XXXD Unspecified fall, subsequent encounter; Z79.51 Long term (current) use of inhaled steroids; Z79.899 Other long term (current) drug therapy; Z79.01 Long term (current) use of anticoagulants; Z87.01 Personal history of pneumonia (recurrent)
CPT/HCPCS: 36415; 36600; 71045; 71275; 80048; 80053; 82805; 83605; 83880; 84484; 85025; 85610; 85730; 87040; 87070; 87150; 87186; 87205; 87635; 87811; 93005; 93306; 94640; 94667; 94668; 94761; 96365; 96366; 96372; 96375; 97110; 97161; 99285; Q9967

== ENCOUNTER 2023-05-02 16:01 | Emergency (ER) | payer MEDICARE, OTHER, SELFPAY ==
[2023-05-02 16:03] VITALS: BP 128/62; PULSE 116; RESP 18; TEMP 36.7; O2SAT 91; BMI 20.8
--- NOTE | 2023-05-02 16:21 | ED.FEMALEGU1 ---
HPI - Female Genitourinary General Chief complaint: Urogenital-Female Stated complaint: HEMATURIA Time Seen by Provider: 05/02/23 16:12 Mode of arrival: Wheelchair Limitations: no limitations History of Present Illness HPI Narrative: 78-year-old female presents for possible blood in the urine. She had given a urine specimen yesterday and got a phone call today telling her to go to the emergency department to get checked. The patient doesn't seem to have any urinary symptoms. There's been no gross hematuria or dysuria. She doesn't mild back pain or abdominal pain. She was recently treated for urinary tract infection and was scheduled to see a urologist, Dr. Hammond, but she did not go. Related Data Home Medications Medication Instructions Recorded Confirmed albuterol sulfate 2.5 mg/3 mL 2.5 mg inhalation QID PRN 02/18/23 02/18/23 (0.083 %) solution for nebulization shortness of breath or wheezing albuterol sulfate 90 mcg/actuation 2 inh inhalation Q6H PRN shortness 02/18/23 02/18/23 breath activated powder inhaler of breath or wheezing atorvastatin 20 mg tablet 20 mg PO DAILY 02/18/23 02/18/23 cholecalciferol (vitamin D3) 25 2,000 unit PO DAILY 02/18/23 02/18/23 mcg (1,000 unit) capsule fluticasone fur. 200 mcg-umeclid 1 inh inhalation Q24H 02/18/23 02/18/23 62.5 mcg-vilant 25 mcg inhalat.powder (Trelegy Ellipta) loratadine 10 mg tablet (Allergy 10 mg PO DAILY 02/18/23 02/18/23 Relief (loratadine)) promethazine 25 mg tablet 25 mg PO .QD PRN nausea 02/18/23 02/18/23 Previous Rx's Medication Instructions Recorded apixaban 5 mg tablet (Eliquis) 5 mg PO BID #60 tabs 02/19/23 Allergies Allergy/AdvReac Type Severity Reaction Status Date / Time No Known Drug Allergies Allergy Verified 05/02/23 16:03 Review of Systems ROS Narrative A ten point review of systems is negative except as noted above. [facility] Medical History (Updated 05/02/23 @ 17:29 by Selvin Flynn MD) Exam Narrative Exam Narrative: Nurses note and vital signs reviewed and patient is not hypoxic. General: The patient appears well and in no apparent distress. Patient is resting comfortably on cart. Skin: Warm, dry, no pallor noted. There is no rash noted. Head: Normocephalic, atraumatic Eye: Normal conjunctiva, no drainage Ears, Nose, Mouth, and Throat: oral mucosa is moist. Nares patent. Cardiovascular: Regular Rate and Rhythm Respiratory: Patient is in no distress, no accessory muscle use, lungs are clear to auscultation, no wheezing, rales or rhonchi Back: non-tender GI: nontender Musculoskeletal: no joint swelling Neurological: awake and alert Psychiatric: Cooperative Constitutional Vital Signs, click to edit/add: Last Vital Signs Temp 98.1 F 05/02/23 16:03 Pulse 116 H 05/02/23 16:03 Resp 18 05/02/23 16:03 BP 128/62 05/02/23 16:03 Pulse Ox 91 L 05/02/23 16:03 O2 Del Method Room Air 05/02/23 16:03 Course Vital Signs Vital signs: Vital Signs Temperature 98.1 F 05/02/23 16:03 Pulse Rate 116 H 05/02/23 16:03 Respiratory Rate 18 05/02/23 16:03 Blood Pressure 128/62 05/02/23 16:03 Pulse Oximetry 91 L 05/02/23 16:03 Oxygen Delivery Method Room Air 05/02/23 16:03 Temperature 98.1 F 05/02/23 16:03 Pulse Rate 116 H 05/02/23 16:03 Respiratory Rate 18 05/02/23 16:03 Blood Pressure 128/62 05/02/23 16:03 Pulse Oximetry 91 L 05/02/23 16:03 Oxygen Delivery Method Room Air 05/02/23 16:03 MDM - Female Genitourinary MDM Narrative Medical decision making narrative: urinalysis is negative. There is no blood in her urine nor is there evidence of urinary tract infection. Treatment diagnosis and follow up are discussed with the patient and her . Differential Diagnosis Differential diagnosis: Likely urinary tract infection and other (microscopic hematuria) Lab Data Attestation: I reviewed the patient's lab results. Labs: Lab Results 05/02/23 Range/Units 16:40 Urine Color Lt. yellow (YELLOW) Urine Clarity Clear (CLEAR) Urine pH 7.0 (5.0-9.0) Ur Specific [place] 1.015 (1.005-1.025) Urine Protein 30 A (NEG/TRACE) mg/dL Urine Glucose (UA) Negative (NEGATIVE) mg/dL Urine Ketones Negative (NEGATIVE) mg/dL Urine Occult Blood Trace-i (NEGATIVE) Urine Nitrite Negative (NEGATIVE) Urine Bilirubin Negative (NEGATIVE) Urine Urobilinogen 0.2 (0.2-1.0) EU/dL Ur Leukocyte Esterase Trace A (NEGATIVE) Urine RBC 0-2 (0-2) #/HPF Urine WBC 2-5 A (NONE SEEN) #/HPF Ur Squamous Epith Cells Rare (NONE/RARE) #/LPF Urine Crystals None seen (None Seen) #/HPF Urine Bacteria Trace A (NONE SEEN) #/HPF Urine Casts None seen (NONE SEEN) #/LPF Urine Mucus None seen (NONE SEEN) Discharge Plan Discharge Chief Complaint: Urogenital-Female Clinical Impression: No problem, feared complaint unfounded Patient Disposition: Home, Self-Care Time of Disposition Decision: 17:29 Condition: Good Mode of Transportation: Private Vehicle Prescriptions / Home Meds: No Action atorvastatin 20 mg tablet 20 mg PO DAILY Trelegy Ellipta 200-62.5-25 mcg blister with device 1 inh inhalation Q24H cholecalciferol (vitamin D3) 25 mcg (1,000 unit) capsule 2,000 unit PO DAILY promethazine 25 mg tablet 25 mg PO .QD PRN (Reason: nausea) albuterol sulfate 90 mcg/actuation aerosol powdr breath activated 2 inh inhalation Q6H PRN (Reason: shortness of breath or wheezing) loratadine [Allergy Relief (loratadine)] 10 mg tablet 10 mg PO DAILY albuterol sulfate 2.5 mg /3 mL (0.083 %) solution for nebulization 2.5 mg inhalation QID PRN (Reason: shortness of breath or wheezing) Eliquis 5 mg Tablet 5 mg PO BID Qty: 60 0RF Stand Alone Forms: Portal Instructions Referrals: Physician,Non-Staff, MD [Primary Care Provider] - 1 week
[2023-05-02 16:57] LABS: Bilirubin Urine NEGATIVE (NEGATIVE); Blood Urine TRACE-I (NEGATIVE); Clarity Urine CLEAR (CLEAR); Color Urine LT. YELLOW (YELLOW); Glucose Urine UA NEGATIVE (NEGATIVE); Ketones Urine NEGATIVE (NEGATIVE); Leukocyte Esterase Urine TRACE (NEGATIVE); Nitrite Urine NEGATIVE (NEGATIVE); Protein Urine 30 mg/dL (NEG/TRACE); Specific Gravity Urine 1.015 (1.005-1.025); Urobilinogen Urine 0.2 EU/dL (0.2-1.0)
[2023-05-02 17:16] LABS: Bacteria Urine TRACE #/HPF (NONE SEEN); Crystals Seen? None Seen #/HPF (None Seen); Mucus Urine NONE SEEN (NONE SEEN); RBC Urine 0-2 #/HPF (0-2); Squamous Epithelial Cell Urine RARE #/LPF (NONE/RARE)
[2023-05-02 17:17] LABS: Cast Seen? NONE SEEN #/LPF (NONE SEEN)
== END 2023-05-02 17:49 | disposition home or self-care (01) ==
PROVIDERS: Emergency Provider Emergency Medicine
DX: Z71.1 Person with feared health complaint in whom no diagnosis is made (principal); Z87.440 Personal history of urinary (tract) infections; Z79.899 Other long term (current) drug therapy
CPT/HCPCS: 81001; 99283

== ENCOUNTER 2023-10-25 05:57 | Emergency (ER) | payer MEDICARE, OTHER, SELFPAY ==
[2023-10-25 06:05] VITALS: BP 105/58; PULSE 78; RESP 14; TEMP 36.8; O2SAT 92
--- NOTE | 2023-10-25 06:14 | PC.NURSE ---
patient with pain to right arm. She states she always has pain in this arm after it was broken several months ago and is not healing. She does not think it is related to this fall. There is a skin tear to the right hand also that is not actively bleeding at this time.
--- NOTE | 2023-10-25 06:20 | ED.UPPEXIN1 ---
HPI - Extremity Injury (Upper) General Chief Complaint: Extremity Injury, Upper Stated Complaint: FALL Time Seen by Provider: 10/25/23 06:02 Source: patient and family Mode of arrival: ambulance History of Present Illness HPI narrative: 80-year-old presents to be evaluated after a fall. She has dementia and is at her baseline. She had a few glasses of wine and she fell and lay on the floor for only about 30 minutes. She is brought in by her who gives most of the history. She sustained an apparent skin tear to the dorsum of her right hand. She has no physical complaints. No vomiting or unusual behavior. She is acting herself. No complaints of headache neck pain chest or abdominal pain or leg pain. This occurred shortly before coming into the emergency department. Related Data Home Medications ?Medication ?Instructions ?Recorded ?Confirmed albuterol sulfate 2.5 mg/3 mL 2.5 mg inhalation QID PRN 02/18/23 02/18/23 (0.083 %) solution for nebulization shortness of breath or wheezing albuterol sulfate 90 mcg/actuation 2 inh inhalation Q6H PRN shortness 02/18/23 02/18/23 breath activated powder inhaler of breath or wheezing atorvastatin 20 mg tablet 20 mg PO DAILY 02/18/23 10/25/23 cholecalciferol (vitamin D3) 25 2,000 unit PO DAILY 02/18/23 02/18/23 mcg (1,000 unit) capsule fluticasone fur. 200 mcg-umeclid 1 inh inhalation Q24H 02/18/23 02/18/23 62.5 mcg-vilant 25 mcg inhalat.powder (Trelegy Ellipta) loratadine 10 mg tablet (Allergy 10 mg PO DAILY 02/18/23 02/18/23 Relief (loratadine)) promethazine 25 mg tablet 25 mg PO .QD PRN nausea 02/18/23 02/18/23 nitrofurantoin 10/25/23 monohydrate/macrocrystals 100 mg capsule sertraline 25 mg tablet mg 10/25/23 Allergies Allergy/AdvReac Type Severity Reaction Status Date / Time No Known Drug Allergies Allergy Verified 05/02/23 16:03 Review of Systems ROS Narrative A ten point review of systems is negative except as noted above. [facility] Medical History (Updated 10/25/23 @ 06:16 by Selvin Flynn MD) Hyperlipidemia ?E78.5 - Hyperlipidemia, unspecified (ICD-10) Exam Narrative Exam Narrative: Nurses note and vital signs reviewed and patient is not hypoxic. General: The patient appears well and in no apparent distress. Patient is resting comfortably on cart. Skin: Warm, dry, no pallor noted. There is no rash noted. Head: Normocephalic, atraumatic, cervical spine nontender Eye: Normal conjunctiva, no drainage Ears, Nose, Mouth, and Throat: oral mucosa is moist. Nares patent. Cardiovascular: Regular Rate and Rhythm Respiratory: Patient is in no distress, no accessory muscle use, lungs are clear to auscultation, no wheezing, rales or rhonchi Back: non-tender, no bruise or abrasion GI: Normal bowel sounds, no tenderness to palpation, no masses appreciated. No rebound, guarding, or rigidity noted. Musculoskeletal: Small skin tear present on the dorsum of her hand. The rest of her arms and legs are nontender and have good range of motion except her right shoulder. She had fractured this shoulder last year and does not move it well. It also is at its baseline.. Hips have full range of motion. No palpable tenderness to her ankles or knees. Neurological: Awake and alert and at her neurologic baseline according to her Psychiatric: Cooperative Constitutional Vital Signs, click to edit/add: Last Vital Signs Temp 98.3 F 10/25/23 06:05 Pulse 78 10/25/23 06:05 Resp 14 10/25/23 06:05 BP 105/58 10/25/23 06:05 Pulse Ox 92 L 10/25/23 06:05 O2 Del Method Room Air 10/25/23 06:05 Course Vital Signs Vital signs: Vital Signs Temperature 98.3 F 10/25/23 06:05 Pulse Rate 78 10/25/23 06:05 Respiratory Rate 14 10/25/23 06:05 Blood Pressure 105/58 10/25/23 06:05 Pulse Oximetry 92 L 10/25/23 06:05 Oxygen Delivery Method Room Air 10/25/23 06:05 Temperature 98.3 F 10/25/23 06:05 Pulse Rate 78 10/25/23 06:05 Respiratory Rate 14 10/25/23 06:05 Blood Pressure 105/58 10/25/23 06:05 Pulse Oximetry 92 L 10/25/23 06:05 Oxygen Delivery Method Room Air 10/25/23 06:05 MDM - Extremity Injury (Upper) MDM Narrative Medical decision making narrative: Tetanus is updated in the skin tear was cleansed and dressed. There is no indication for radiographic evaluation. Treatment diagnosis and follow-up were discussed with the patient and her . Differential Diagnosis Differential diagnosis: Likely other (Skin tear, contusion) Discharge Plan Discharge Stand Alone Forms: Portal Instructions Chief Complaint: Extremity Injury, Upper Clinical Impression: Skin tear Patient Disposition: Home, Self-Care Time of Disposition Decision: 06:15 Condition: Good Mode of Transportation: Private Vehicle Prescriptions / Home Meds: No Action atorvastatin 20 mg tablet 20 mg PO DAILY Trelegy Ellipta 200-62.5-25 mcg blister with device 1 inh inhalation Q24H cholecalciferol (vitamin D3) 25 mcg (1,000 unit) capsule 2,000 unit PO DAILY promethazine 25 mg tablet 25 mg PO .QD PRN (Reason: nausea) albuterol sulfate 90 mcg/actuation aerosol powdr breath activated 2 inh inhalation Q6H PRN (Reason: shortness of breath or wheezing) loratadine [Allergy Relief (loratadine)] 10 mg tablet 10 mg PO DAILY albuterol sulfate 2.5 mg /3 mL (0.083 %) solution for nebulization 2.5 mg inhalation QID PRN (Reason: shortness of breath or wheezing) sertraline 25 mg tablet nitrofurantoin monohyd/m-cryst 100 mg capsule Print Language: Slovak Instructions: Skin Tear (ED) Referrals: Physician,Non-Staff, MD [Primary Care Provider] - 1 week
[2023-10-25] MEDS: ADACEL DIPH,PERTUSS(ACELL),TET VAC/PF 0.5 ML ADULT SYRINGE IM (06:53)
== END 2023-10-25 07:06 | disposition home or self-care (01) ==
PROVIDERS: Emergency Provider Emergency Medicine
DX: S61.411A Laceration without foreign body of right hand, initial encounter (principal); Z23 Encounter for immunization; W19.XXXA Unspecified fall, initial encounter; F03.90 Unspecified dementia, unspecified severity, without behavioral disturbance, psychotic disturbance, mood disturbance, and anxiety; E78.5 Hyperlipidemia, unspecified; Z79.899 Other long term (current) drug therapy
CPT/HCPCS: 90471; 90715; 99283

== ENCOUNTER 2023-10-25 09:10 | Inpatient (IN) | payer MEDICARE, OTHER, SELFPAY ==
[2023-10-25] VITALS (7 sets, daily range): BP systolic 96–154; BP diastolic 65–80; PULSE 72–93; RESP 16–18; TEMP 36.6–36.9; O2SAT 88–95; BMI 20.3; BMI 20.7
--- NOTE | 2023-10-25 09:57 | XR_ITS ---
The [address] [address] Patient Name: JOSE BROWN MRN: [id number] date: 1945 Sex: F Assigned Patient Location: ER Current Patient Location: ER Accession/Order Number: [id number] Exam Date: 10/25/2023 10:20 Report Date: 10/25/2023 11:18 At the request of: SARI BOWSER Procedure: XR chest 1V EXAMINATION: XR chest 1V HISTORY: right chest pain after fall COMPARISON: XR chest 02/18/2023 FINDINGS: LUNGS: No significant pulmonary parenchymal abnormalities. VASCULATURE: No increased pulmonary vasculature. PLEURA: No pneumothorax, effusion, or pleural thickening. CARDIAC: No cardiomegaly or cardiac silhouette abnormality. MEDIASTINUM: No visible mass or adenopathy. BONES: Remote right humeral neck fracture with significant displacement. OTHER: Negative. XR/XR chest 1V IMPRESSION: 1. No acute cardiopulmonary process. 2. No appreciable acute bone abnormality. Chronic right humeral neck fracture. Electronically authenticated by: JULIA CARABALLO Date: 10/25/2023 11:18
--- NOTE | 2023-10-25 09:57 | XR_ITS ---
The [address] [address] Patient Name: JOSE BROWN MRN: [id number] date: 1945 Sex: F Assigned Patient Location: ER Current Patient Location: ER Accession/Order Number: [id number] Exam Date: 10/25/2023 10:20 Report Date: 10/25/2023 11:24 At the request of: SARI BOWSER Procedure: XR hip BI w PEL 1V EXAMINATION: XR hip BI w PEL 1V HISTORY: bilateral hip pain after fall COMPARISON: No relevant comparison available. FINDINGS: RIGHT FINDINGS: BONES: Fracture of the right superior and inferior pubic rami with suspected mild displacement. Narrowing of the superior joint space of the hip with periarticular degenerative osteophytes. SOFT TISSUES: No visible soft tissue swelling. OTHER: Negative. LEFT FINDINGS: BONES: Prior left femoral neck repair via medullary aileen and compression screw. Remote fracture and healing of lesser trochanter. Mild degenerative changes of the joint. SOFT TISSUES: No visible soft tissue swelling. OTHER: Negative. XR/XR hip BI w PEL 1V IMPRESSION: RIGHT CONCLUSION: 1. Acute, likely mildly displaced fractures of the right superior and inferior pubic rami. 2. Moderate-marked degenerative changes of the right hip joint but no appreciable fracture of the femur. LEFT CONCLUSION: 1. No acute bone abnormality. 2. Prior surgical repair without evidence of hardware failure. 3. Mild degenerative joint disease. Electronically authenticated by: JULIA CARABALLO Date: 10/25/2023 11:24
[2023-10-25] MEDS: ACETAMINOPHEN 500 MG TABLET 1000 MG PO (10:02)
--- NOTE | 2023-10-25 11:45 | ED_ITS ---
HPI - General Adult General Chief complaint: Shortness of Breath/Dyspnea Stated complaint: PAIN Time Seen by Provider: 10/25/23 09:19 Source: patient Mode of arrival: ambulance Limitations: no limitations History of Present Illness HPI narrative: Patient fell at home trying to transfer from her bed - which is a hospital bed in the living room - to her wheelchair. She was brought by EMS to our ED for evaluation. Dr Flynn saw her and documented good ROM 3 of 4 extremities - she has chronic right shoulder injury with chronic decreased ROM - and sent the patient home. Once she got home She was apparently unable to ambulate. Her Called the emergency department and told us that she could not walk and asked for advice, to which we told him to have the patient come back for reevaluation since none of us were present for her initial emergency department visit as we have changed shifts at 7 AM around the time that she left the department. On arrival, The patient complains of pain along the lateral aspect of the upper right chest as well as pain in the right hip and pelvis. She also has some left hip pain but also has a pain in that hip and suffers from some chronic pain, according to the patient and family. She also has the aforementioned issue with her right shoulder. She denied any additional pain in that area. She denied any head injury, headache, neck pain or back pain. She denied any loss of consciousness. She denied any abdominal pain. Related Data Home Medications ?Medication ?Instructions ?Recorded ?Confirmed albuterol sulfate 2.5 mg/3 mL 2.5 mg inhalation QID PRN 02/18/23 10/25/23 (0.083 %) solution for nebulization shortness of breath or wheezing atorvastatin 20 mg tablet 20 mg PO DAILY 02/18/23 10/25/23 cholecalciferol (vitamin D3) 25 2,000 unit PO DAILY 02/18/23 10/25/23 mcg (1,000 unit) capsule fluticasone fur. 200 mcg-umeclid 1 inh inhalation Q24H 02/18/23 10/25/23 62.5 mcg-vilant 25 mcg inhalat.powder (Trelegy Ellipta) nitrofurantoin 100 mg PO Q12H 10/25/23 10/25/23 monohydrate/macrocrystals 100 mg capsule sertraline 25 mg tablet 25 mg PO Q24H 10/25/23 10/25/23 Allergies Allergy/AdvReac Type Severity Reaction Status Date / Time No Known Drug Allergies Allergy Verified 05/02/23 16:03 [facility] Medical History (Updated 10/25/23 @ 11:55 by Leonardo Ferrera) Hyperlipidemia ?E78.5 - Hyperlipidemia, unspecified (ICD-10) Exam Narrative Exam Narrative: Nurses note and vital signs reviewed and patient is not hypoxic. Afebrile General: The patient appears well and in no apparent distress. Patient is resting comfortably on cart. GCS = 15. Skin: Warm, dry, no pallor noted. Head: Normocephalic, atraumatic Neck: Supple, trachea mid-line, no tenderness, no lymphadenopathy. Full ROM and no cervical spinal tenderness. The patient has no step-offs or crepitus noted Eyes: PERRLA, EOMI ENT: TM's clear, no hemotympanum detected, no blood in posterior oropharynx Cardiovascular: Regular Rate and Rhythm Respiratory: Patient is in no distress, no accessory muscle use, lungs are clear to auscultation, no wheezing, rales or rhonchi Chest Wall: no tenderness, no flail chest, contusion, abrasion, or signs of trauma. Back: Back has no evidence of trauma, including contusion, abrasion, swelling or ecchymosis. The patient had no evidence of step-offs or creptitus noted. No tenderness to palpation. Negative straight leg raise bilaterally. Musculoskeletal: Tenderness along the lateral aspect and posterior lateral aspect of the right hip as well as the medial aspect of both hips and right pelvis. No right lower extremity or left lower extremity shortening to suggest acute femoral fracture. no Additional sign of long bone fracture, Aside from the patient's chronic right shoulder pain and limited range of motion from an earlier fall and injury. no Lower leg tenderness or swelling Bilateral. Pulses at femoral, DP, PT, and popiteal were 2+ bilaterally. Moves all four extremities in all modalities with 5/5 strength. GI: Normal bowel sounds, no tenderness to palpation, no masses appreciated. No rebound, guarding, or rigidity noted. Neurological: Awake, alert and appropriate and able to answer all of my questions but is not oriented to time, normal equal spare person strength, normal finger to nose, normal speech, normal coordination, normal motor, normal sensory. Psychiatric: Cooperative Constitutional Vital Signs, click to edit/add: Last Vital Signs Temp 98.4 F 10/25/23 09:12 Pulse 72 10/25/23 11:34 Resp 18 10/25/23 11:34 BP 118/76 10/25/23 11:34 Pulse Ox 94 L 10/25/23 11:34 O2 Del Method Nasal Cannula 10/25/23 09:35 O2 Flow Rate 2 10/25/23 09:35 Course Vital Signs Vital signs: Vital Signs Temperature 98.4 F 10/25/23 09:12 Pulse Rate 93 H 10/25/23 09:12 Respiratory Rate 18 10/25/23 09:12 Blood Pressure 96/80 10/25/23 09:12 Pulse Oximetry 92 L 10/25/23 09:12 Temperature 98.4 F 10/25/23 09:12 Pulse Rate 72 10/25/23 11:34 Respiratory Rate 18 10/25/23 11:34 Blood Pressure 118/76 10/25/23 11:34 Pulse Oximetry 94 L 10/25/23 11:34 Oxygen Delivery Method Nasal Cannula 10/25/23 09:35 Oxygen Delivery Flow Rate 2 10/25/23 09:35 Medical Decision Making MDM Narrative Medical decision making narrative: X-rays of the chest did not identify any acute abnormality such as pneumothorax, effusion or rib fracture. However x-rays of the hips and pelvis identified superior and inferior right pubic rami fractures. The femurs appear intact bilaterally although pitting is noted on the left hip from prior surgery. Imaging Data xr chest, hips, pelvis: Radiologist's impression: ITS Impressions Chest X-Ray 10/25/23 09:57 IMPRESSION: 1. No acute cardiopulmonary process. 2. No appreciable acute bone abnormality. Chronic right humeral neck fracture. Electronically authenticated by: JULIA CARABALLO Date: 10/25/2023 11:18 Hip/Pelvis X-Ray 10/25/23 09:57 IMPRESSION: RIGHT CONCLUSION: 1. Acute, likely mildly displaced fractures of the right superior and inferior pubic rami. 2. Moderate-marked degenerative changes of the right hip joint but no appreciable fracture of the femur. LEFT CONCLUSION: 1. No acute bone abnormality. 2. Prior surgical repair without evidence of hardware failure. 3. Mild degenerative joint disease. Electronically authenticated by: JULIA CARABALLO Date: 10/25/2023 11:24 Discharge Plan Discharge Chief Complaint: Shortness of Breath/Dyspnea Clinical Impression: Closed fracture of right inferior pubic ramus, Closed fracture of right superior pubic ramus Patient Disposition: Admitted As Inpatient Time of Disposition Decision: 11:54
[2023-10-25] MEDS: HYDROMORPHONE HCL 0.5 MG/0.5 ML SYRINGE IV (12:05)
[2023-10-25] MEDS: ONDANSETRON PF 4 MG/2 ML VIAL IV (12:05)
[2023-10-25] MEDS: NITROFURANTOIN MONOHYD/MAC-CRST 100 MG CAPSULE PO ×2 (14:37→21:30)
--- NOTE | 2023-10-25 15:29 | SWNOTE1 ---
SW met with pt and pt's in room to discuss dc needs. Pt lives at home with . Pt normally uses a cane at home and has a wheelchair as well. Pt had a fall last year as well and broke her arm and did something to her hip as well. SW, pt, and pt's discussed possibility of pt needing rehab for a short time. Pt voiced she was at [facility] last year after her fall. Pt and are aware of the 3 day inpatient requirement for medicare to pay. Pt's voiced it is $11,000 for private pay at [facility]. If pt does need rehab and qualifies for 3 day stay they would like pt to go to [facility]. Pt is alright with SW sending information to [facility]. Pt's voiced he can't take her home if she can't get around. At this time SW sent over face sheet, ER note, case management referral report, labs, diagnostic imaging, OT note, and medication list. SW to follow as needed. Important Message from Medicare reviewed and discussed with patient. Pt. verbalized understanding and signed the form. Original given to patient and patient's and copy placed in patient?s chart.
--- NOTE | 2023-10-25 15:58 | PM.ORCN ---
History of Present Illness HPI Consult date: 10/25/23 Consult reason: fracture (Right pubic rami fractures) Chief complaint: R SUPERIOR & INF PUBIC FXS Narrative: Patient is a 78-year-old who fell at home transferring from her hospital bed to wheelchair. She presented to the emergency room where x-rays revealed a pubic rami fractures. Patient is unable to bear weight and was admitted for to the hospital for further treatment. At baseline she reports pain in her right shoulder and some in her left hip secondary to a fracture to her right shoulder and a prior left hip intramedullary nailing. Review of Systems ROS Status of ROS 10 or more systems reviewed and unremarkable except as noted in history and below [facility] Medical History (Updated 10/25/23 @ 16:02 by Nabor Barfield MD) Chronic right shoulder pain ?M25.511 - Pain in right shoulder (ICD-10) ?G89.29 - Other chronic pain (ICD-10) History of fall ?Z91.81 - History of falling (ICD-10) COPD (chronic obstructive pulmonary disease) ?J44.9 - Chronic obstructive pulmonary disease, unspecified (ICD-10) Depression ?F32.A - Depression, unspecified (ICD-10) Bladder infection ?N30.90 - Cystitis, unspecified without hematuria (ICD-10) Hyperlipidemia ?E78.5 - Hyperlipidemia, unspecified (ICD-10) Family History (Updated 10/25/23 @ 13:34 by Pooja Rowe RN) Father Family history of cancer Family history of diabetes mellitus Mother Family history of cancer Aunt Family history of COPD (chronic obstructive pulmonary disease) Social History (Updated 10/25/23 @ 13:35 by Pooja Rowe RN) Within the past year, how often did you have a drink containing alcohol: 4 or more times a week Smoking status: Former smoker Non-prescribed substance use: denies use Highest level of school completed/degree received: Bachelor's degree Meds Home Medications and Allergies Home Medications ?Medication ?Instructions ?Recorded ?Confirmed ?Type albuterol sulfate 2.5 mg/3 mL 2.5 mg inhalation QID PRN 02/18/23 10/25/23 History (0.083 %) solution for nebulization shortness of breath or wheezing atorvastatin 20 mg tablet 20 mg PO DAILY 02/18/23 10/25/23 History cholecalciferol (vitamin D3) 25 2,000 unit PO DAILY 02/18/23 10/25/23 History mcg (1,000 unit) capsule fluticasone fur. 200 mcg-umeclid 1 inh inhalation Q24H 02/18/23 10/25/23 History 62.5 mcg-vilant 25 mcg inhalat.powder (Trelegy Ellipta) ferrous sulfate 325 mg (65 mg 325 mg PO DAILY 10/25/23 10/25/23 History iron) tablet (FeroSul) nitrofurantoin 100 mg PO Q12H 10/25/23 10/25/23 History monohydrate/macrocrystals 100 mg capsule sertraline 25 mg tablet 25 mg PO Q24H 10/25/23 10/25/23 History Allergies Allergy/AdvReac Type Severity Reaction Status Date / Time No Known Drug Allergies Allergy Verified 05/02/23 16:03 Exam Narrative Exam Narrative: On exam today she is in no obvious distress. Tenderness palpation throughout the right pelvis. Skin is intact. Grossly neurovascular intact distally. No knee or ankle tenderness. Left lower extremity is nontender to palpation. Constitutional Vital Signs, click to edit/add: Last Vital Signs Temp 97.8 F 10/25/23 11:24 Pulse 72 10/25/23 11:34 Resp 18 10/25/23 11:34 BP 118/76 10/25/23 11:34 Pulse Ox 94 L 10/25/23 11:34 O2 Del Method Nasal Cannula 10/25/23 11:24 O2 Flow Rate 2 10/25/23 11:24 Results Labs Labs: All other labs normal. Diagnostic results Hip x-ray: image reviewed (X-rays of her right hip are reviewed and show a nondisplaced inferior and superior pubic rami fractures) Assessment and Plan Assessment and Plan (1) Closed fracture of right superior pubic ramus: Qualifiers: Encounter type: initial encounter Qualified Code(s): S32.511A - Fracture of superior rim of right pubis, initial encounter for closed fracture (2) Closed fracture of right inferior pubic ramus: Qualifiers: Encounter type: initial encounter Qualified Code(s): S32.591A - Other specified fracture of right pubis, initial encounter for closed fracture Plan For her right superior and inferior pubic rami fractures would recommend physical therapy for weightbearing as tolerated transfer and gait training. Patient should follow-up in my office in 2 to 3 weeks to repeat x-rays and reassess her progress.
[2023-10-25] MEDS: ENOXAPARIN SODIUM 40 MG/0.4 ML SYRINGE SUBQ (17:29)
[2023-10-25] MEDS: PNEUMOCOCCAL 23 VACCINE 25 MCG/0.5 ML VIAL IM (17:30)
[2023-10-25] MEDS: OXYCODONE HCL/ACETAMINOPHEN 5MG/325MG 1 TAB PO (17:32)
--- NOTE | 2023-10-25 18:49 | XR_ITS ---
The [address] [address] Patient Name: JOSE BROWN MRN: [id number] date: 1945 Sex: F Assigned Patient Location: [place] Current Patient Location: Accession/Order Number: [id number] Exam Date: 10/25/2023 20:50 Report Date: 10/25/2023 22:47 At the request of: OBED DALTON Procedure: XR ribs RT 2V EXAM: XR ribs RT 2V HISTORY: Pain COMPARISON: Chest x-ray 10/25/2023 TECHNIQUE: 4 views right RIBS FINDINGS: Chronic right humeral neck fracture displacement. Right lung is clear. No displaced rib fractures. XR/XR ribs RT 2V IMPRESSION: No displaced rib fractures. Electronically authenticated by: GURPREET GUEVARA Date: 10/25/2023 22:47
--- NOTE | 2023-10-25 19:52 | RESP.RT ---
titrated down to 2L
[2023-10-25] MEDS: ATORVASTATIN CALCIUM 20 MG TABLET PO (21:30)
[2023-10-26] VITALS (7 sets, daily range): BP systolic 117–125; BP diastolic 57–72; PULSE 69–97; RESP 16–21; TEMP 36.3–36.9; O2SAT 86–95
[2023-10-26 05:40] LABS: Alanine Aminotransferase 28 U/L (14-59); Albumin Globulin Ratio 0.6; Albumin Level 2.6 g/dL (3.4-5.0); Alkaline Phosphatase 65 U/L (46-116); Anion Gap 9.8; Aspartate Amino Transferase 21 U/L (15-37); Bilirubin Total 0.7 mg/dL (0.2-1.0); Calcium 8.7 mg/dL (8.5-10.1); Carbon Dioxide 27.1 mmol/L (21.0-32.0); Chloride 104 mmol/L (98-107); Estimated GFR (African America >60 (>=60); Estimated GFR (Non-African Ame >60 (>=60); Globulin 4.3 g/dL; Glucose 103 mg/dL (74-106); Potassium 3.9 mmol/L (3.5-5.1); Sodium 137 mmol/L (136-145); Total Protein 6.9 g/dL (6.4-8.2)
[2023-10-26] MEDS: OXYCODONE HCL/ACETAMINOPHEN 5MG/325MG 1 TAB PO ×3 (06:31→20:57)
--- NOTE | 2023-10-26 08:37 | PM.HP ---
HPI H&P: HPI History of Present Illness Chief complaint: R SUPERIOR & INF PUBIC FXS Narrative: patient is a pleasant 78-year-old female with past medical history of chronic obstructive pulmonary disease, iron deficiency anemia, chronic urinary tract infections, hyperlipidemia who presented to the Emergency Room last night after having a fall in between the bed and transferring. She notes that she fell on her bottom and also hit her right side rib area. She was unable to bear weight and was brought to the Emergency Room. Patient was found to have pubic rami fractures, orthopedic consultation recommended physical therapy for weightbearing as tolerated for transfer and gait training. X-rays of the ribs showed no acute fractures. Patient denies any pain with exception to the right side of her ribs. She denies any shortness of breath pain with inspiration or expiration. She plans to go to the [facility] for rehabilitation. No other issues or concerns on admission exam. Opioid HPI Opioid Management Most Recent Opioid Data: Last Pain Assessment 10/26/23 14:06 Last MAR Pain Assessment 10/26/23 12:30 Last ORT Total Score 1 10/25/23 11:24 Last ORT Risk Category Low Risk 10/25/23 11:24 Review of Systems ROS Narrative ROS: a complete review of systems were reviewed with patient and are positive as below or listed in History of Chief Complaint. General: no fever, chills, night sweats Head: no headache, trauma, visual changes, nausea or vomiting Skin: no reported rashes, itching or sores Eyes: no blurriness of vision Ears: no reported hearing loss, vertigo, earache, or tinnitus Throat: no sore throat, hoarseness, swelling of neck, or tongue pain Heart: no chest pain Lungs: no shortness of breath or cough GI: no diarrhea or vomiting/nausea Urinary: no urinary urgency, frequency or pain Neuro: no numbness or tingling, pain in right side of ribs HEM: no bleeding issues or bruising ENDO: no thyroid problems Psych: no anxiety or depression [facility] Medical History (Updated 10/25/23 @ 16:02 by Nabor Barfield MD) Chronic right shoulder pain ?M25.511 - Pain in right shoulder (ICD-10) ?G89.29 - Other chronic pain (ICD-10) History of fall ?Z91.81 - History of falling (ICD-10) COPD (chronic obstructive pulmonary disease) ?J44.9 - Chronic obstructive pulmonary disease, unspecified (ICD-10) Depression ?F32.A - Depression, unspecified (ICD-10) Bladder infection ?N30.90 - Cystitis, unspecified without hematuria (ICD-10) Hyperlipidemia ?E78.5 - Hyperlipidemia, unspecified (ICD-10) Family History Father Family history of cancer Family history of diabetes mellitus Mother Family history of cancer Aunt Family history of COPD (chronic obstructive pulmonary disease) Social History Within the past year, how often did you have a drink containing alcohol: 4 or more times a week Smoking status: Former smoker Non-prescribed substance use: denies use Highest level of school completed/degree received: Bachelor's degree Meds Home Medications and Allergies Home Medications ?Medication ?Instructions ?Recorded ?Confirmed ?Type albuterol sulfate 2.5 mg/3 mL 2.5 mg inhalation QID PRN 02/18/23 10/25/23 History (0.083 %) solution for nebulization shortness of breath or wheezing atorvastatin 20 mg tablet 20 mg PO DAILY 02/18/23 10/25/23 History cholecalciferol (vitamin D3) 25 2,000 unit PO DAILY 02/18/23 10/25/23 History mcg (1,000 unit) capsule fluticasone fur. 200 mcg-umeclid 1 inh inhalation Q24H 02/18/23 10/25/23 History 62.5 mcg-vilant 25 mcg inhalat.powder (Trelegy Ellipta) ferrous sulfate 325 mg (65 mg 325 mg PO DAILY 10/25/23 10/25/23 History iron) tablet (FeroSul) nitrofurantoin 100 mg PO Q12H 10/25/23 10/25/23 History monohydrate/macrocrystals 100 mg capsule sertraline 25 mg tablet 25 mg PO Q24H 10/25/23 10/25/23 History Allergies Allergy/AdvReac Type Severity Reaction Status Date / Time No Known Drug Allergies Allergy Verified 05/02/23 16:03 Exam Narrative Exam Narrative: General: Patient is alert, and oriented to person, place and time with normal affect, proper hygiene Skin: multiple ecchymoses over her upper extremities Head: atraumatic, acephalic Eyes: PERRLA, no nystagmus present, conjunctiva clear, no scleral icterus Ears: normal gross auditory acuity Heart: Normal rate and rhythm, no murmurs/rubs/gallops Lungs: no audible wheezes, crackles and normal breath sounds all lung recinos, pain in the lateral right ribs 3-7 Abdomen: Normal audible bowel sounds, no distension, No palpable masses, no organomegaly, no rebound/guarding/ or rigidity Musculoskeletal: no swelling bilateral lower extremities Neuro: CN II-X grossly intact Constitutional Vital Signs, click to edit/add: Last Vital Signs Temp 98.0 F 10/26/23 08:00 Pulse 69 10/26/23 08:00 Resp 19 10/26/23 08:00 BP 117/57 10/26/23 08:00 Pulse Ox 91 L 10/26/23 08:00 O2 Del Method Nasal Cannula 10/26/23 04:42 O2 Flow Rate 2 10/26/23 04:42 Results Labs Labs: BMP 10/26/23 04:20 Sodium 137 Potassium 3.9 Chloride 104 Carbon Dioxide 27.1 BUN 20.0 H Creatinine 0.74 Glucose 103 Calcium 8.7 Liver Function 10/26/23 Range/Units 04:20 Total Bilirubin 0.7 (0.2-1.0) mg/dL AST 21 (15-37) U/L ALT 28 (14-59) U/L Alkaline Phosphatase 65 (46-116) U/L Albumin 2.6 L (3.4-5.0) g/dL Assessment and Plan Assessment and Plan (1) Closed fracture of right superior pubic ramus: Assessment and Plan: weight bearing as tolerated for transfers per ortho. Pain control and pt/ot evaluation for acute rehab. Lidoderm patch to ribs. Qualifiers: Encounter type: initial encounter Qualified Code(s): S32.511A - Fracture of superior rim of right pubis, initial encounter for closed fracture (2) Closed fracture of right inferior pubic ramus: Qualifiers: Encounter type: initial encounter Qualified Code(s): S32.591A - Other specified fracture of right pubis, initial encounter for closed fracture (3) COPD (chronic obstructive pulmonary disease): Assessment and Plan: continue medications as needed. no acute exacerbation. (4) Depression: Assessment and Plan: continue sertraline (5) Bladder infection: Assessment and Plan: placed on rocephin (6) Hyperlipidemia: Assessment and Plan: continue atorvastatin Plan patient is a full code patient is in inpatient status and is expected to cross 2 midnights for her medical necessary treatment continue Lovenox for deep vein thrombosis prophylaxis
[2023-10-26] MEDS: SERTRALINE HCL 50 MG TABLET 25 MG PO (08:38)
[2023-10-26] MEDS: CHOLECALCIFEROL (VITAMIN D3) 25 MCG/1,000 UNITS TABLET 50 MCG PO (08:38)
[2023-10-26] MEDS: NITROFURANTOIN MONOHYD/MAC-CRST 100 MG CAPSULE PO (08:38)
[2023-10-26] MEDS: FERROUS SULFATE 325 MG TABLET PO (08:39)
[2023-10-26] MEDS: [UNRECOGNIZED DRUG - REMARK] 1 EACH IH (10:12)
[2023-10-26] MEDS: CEFTRIAXONE 1,000 MG in 0.9 % SODIUM CHLORIDE 50 ML 100 MG IV (10:46)
--- NOTE | 2023-10-26 11:52 | PT.DAILY ---
Physical Therapy Daily Note PT Daily Note/Assess Start: 10/26/23 11:41 Freq: Status: Active Protocol: Document 10/26/23 11:11 ESHUPORFIRIO (Rec: 10/26/23 11:52 ESHUPORFIRIO [id number]) Physical Therapy Daily Note/Assessment Time In/Time Out Time In 11:11 Time Out 11:34 Subjective Subjective Patient reports no pain while lying still, but max pain 8-10 /10 with any movement. Did have nursing medicate patient 20-30 minutes prior to RX. Therapeutic Exercise Time Therapeutic Exercise Minutes (minutes) 8 Therapeutic Exercise Units 1 Therapeutic Exercise Treatment Therapeutic Exercise Treatment AP, QS, GS in bed prior to moving. Patient could complete each of these. Attempted some gentle heel-slides but patient resisted this movement in bed. AP's when sitting EOB . Therapeutic Activity Time Therapeutic Activity Minutes (minutes) 15 Therapeutic Activity Units 1 Therapeutic Activity Treatment Bed Mobility Ability Maximum Assist,2 Person Assist Chair Transfer Ability Total Assist,2 Person Assist Therapeutic Activity Comments Patient was able to initiate some movement to bring LE's off side of bed but then required max assist x2 to come into seated position. EOB sitting x3 minutes to gain bearings, completed some AP's during this time. Attempted sit to stand with 2 assist in hopes to pivot to chair but was unable to complete with total assist. Had patient sit an addition 2-3 min prior to 2nd attempt. This time had alyssa-can on L side for patient to help push up but was still unable to come into standing with total assist of 2. 3rd attempt was also unsuccessful. Sit to supine with total assist x2. Patient was able to roll to L side with min to mod assist x1 and then back to supine for positioning. Total Physical Therapy Time Total Therapy Minutes 23 Total Physical Therapy Units 2 Summary Daily Note Summary Patient with improved EOB sitting tolerance today, but is still unable to come into full standing or WB through B LE's due to high pain and weakness. Patient will need SNF care at [place] to regain strength and functional ability to complete safe transfers and ambulation. Patient is 2 assist for safety at this time.
[2023-10-26] MEDS: LIDOCAINE 5% PATCH 1 PATCH TOPICAL (13:51)
[2023-10-26] MEDS: ENOXAPARIN SODIUM 40 MG/0.4 ML SYRINGE SUBQ (17:21)
--- NOTE | 2023-10-26 19:43 | RESP.RT ---
No PRN breathing tx given. Pt denies need. No respiratory distress noted.
[2023-10-26] MEDS: ATORVASTATIN CALCIUM 20 MG TABLET PO (20:57)
[2023-10-27] VITALS (9 sets, daily range): BP systolic 110–134; BP diastolic 54–72; PULSE 76–97; RESP 16–20; TEMP 36.4–36.7; O2SAT 87–96
[2023-10-27 05:53] LABS: Alanine Aminotransferase 25 U/L (14-59); Albumin Globulin Ratio 0.5; Albumin Level 2.3 g/dL (3.4-5.0); Alkaline Phosphatase 66 U/L (46-116); Anion Gap 12.3; Aspartate Amino Transferase 18 U/L (15-37); BUN Creatinine Ratio 22.5; Bilirubin Total 0.5 mg/dL (0.2-1.0); Calcium 8.5 mg/dL (8.5-10.1); Carbon Dioxide 27.8 mmol/L (21.0-32.0); Chloride 104 mmol/L (98-107); Estimated GFR (African America >60 (>=60); Estimated GFR (Non-African Ame >60 (>=60); Globulin 4.5 g/dL; Glucose 116 mg/dL (74-106); Potassium 4.1 mmol/L (3.5-5.1); Sodium 140 mmol/L (136-145); Total Protein 6.8 g/dL (6.4-8.2)
[2023-10-27] MEDS: OXYCODONE HCL/ACETAMINOPHEN 5MG/325MG 1 TAB PO (06:29)
--- NOTE | 2023-10-27 08:26 | PM.PN ---
Progress Note: Subjective Subjective Interval history: Patient is resting comfortably in bed this morning. Says her lidoderm patch helped. No other issues or complaints today. Exam Narrative Exam Narrative: General: Patient is alert, and oriented to person, place and time with normal affect, proper hygiene Skin: multiple ecchymoses over her upper extremities Head: atraumatic, acephalic Eyes: PERRLA, no nystagmus present, conjunctiva clear, no scleral icterus Ears: normal gross auditory acuity Heart: Normal rate and rhythm, no murmurs/rubs/gallops Lungs: no audible wheezes, crackles and normal breath sounds all lung recinos, pain in the lateral right ribs 3-7 Abdomen: Normal audible bowel sounds, no distension, No palpable masses, no organomegaly, no rebound/guarding/ or rigidity Musculoskeletal: no swelling bilateral lower extremities Neuro: CN II-X grossly intact Constitutional Vital Signs, click to edit/add: Last Vital Signs Temp 98.0 F 10/27/23 04:01 Pulse 76 10/27/23 04:01 Resp 16 10/27/23 04:01 BP 134/63 10/27/23 04:01 Pulse Ox 94 L 10/27/23 04:01 O2 Del Method Nasal Cannula 10/27/23 04:01 O2 Flow Rate 1 10/27/23 04:01 Progress Note: Objective Labs Labs: BMP 10/27/23 04:31 Sodium 140 Potassium 4.1 Chloride 104 Carbon Dioxide 27.8 BUN 20.0 H Creatinine 0.89 Glucose 116 H Calcium 8.5 Liver Function 10/27/23 Range/Units 04:31 Total Bilirubin 0.5 (0.2-1.0) mg/dL AST 18 (15-37) U/L ALT 25 (14-59) U/L Alkaline Phosphatase 66 (46-116) U/L Albumin 2.3 L (3.4-5.0) g/dL Progress Note: A&P Assessment and Plan (1) Closed fracture of right superior pubic ramus: Assessment and Plan: weight bearing as tolerated for transfers per ortho. Pain control and pt/ot evaluation for acute rehab. Lidoderm patch to ribs. Qualifiers: Encounter type: initial encounter Qualified Code(s): S32.511A - Fracture of superior rim of right pubis, initial encounter for closed fracture (2) Closed fracture of right inferior pubic ramus: Qualifiers: Encounter type: initial encounter Qualified Code(s): S32.591A - Other specified fracture of right pubis, initial encounter for closed fracture (3) COPD (chronic obstructive pulmonary disease): Assessment and Plan: continue medications as needed. no acute exacerbation. (4) Depression: Assessment and Plan: continue sertraline (5) Bladder infection: Assessment and Plan: placed on rocephin (6) Hyperlipidemia: Assessment and Plan: continue atorvastatin Plan patient is a full code continue Lovenox for deep vein thrombosis prophylaxis
[2023-10-27] MEDS: CHOLECALCIFEROL (VITAMIN D3) 25 MCG/1,000 UNITS TABLET 50 MCG PO (08:49)
[2023-10-27] MEDS: SERTRALINE HCL 50 MG TABLET 25 MG PO (08:49)
[2023-10-27] MEDS: FERROUS SULFATE 325 MG TABLET PO (08:49)
[2023-10-27] MEDS: LIDOCAINE 5% PATCH 1 PATCH TOPICAL (08:50)
[2023-10-27] MEDS: CEFTRIAXONE 1,000 MG in 0.9 % SODIUM CHLORIDE 50 ML 100 MG IV (08:50)
[2023-10-27] MEDS: 0.9 % SODIUM CHLORIDE 250 ML 10 ML IV (08:52)
[2023-10-27] MEDS: [UNRECOGNIZED DRUG - REMARK] 1 EACH IH (09:54)
[2023-10-27] MEDS: ACETAMINOPHEN 500 MG TABLET 1000 MG PO (17:18)
[2023-10-27] MEDS: ENOXAPARIN SODIUM 40 MG/0.4 ML SYRINGE SUBQ (17:18)
[2023-10-27] MEDS: CEFDINIR 300 MG CAPSULE PO (20:18)
[2023-10-27] MEDS: ATORVASTATIN CALCIUM 20 MG TABLET PO (20:18)
[2023-10-28 04:11] VITALS: BP 128/67; PULSE 84; RESP 18; TEMP 36.8; O2SAT 90
[2023-10-28 05:19] VITALS: O2SAT 91
[2023-10-28 05:51] LABS: Alanine Aminotransferase 21 U/L (14-59); Albumin Globulin Ratio 0.5; Albumin Level 2.2 g/dL (3.4-5.0); Alkaline Phosphatase 62 U/L (46-116); Anion Gap 13.1; Aspartate Amino Transferase 16 U/L (15-37); BUN Creatinine Ratio 21.6; Bilirubin Total 0.6 mg/dL (0.2-1.0); Calcium 8.6 mg/dL (8.5-10.1); Carbon Dioxide 26.4 mmol/L (21.0-32.0); Chloride 103 mmol/L (98-107); Estimated GFR (African America >60 (>=60); Estimated GFR (Non-African Ame >60 (>=60); Globulin 4.6 g/dL; Glucose 91 mg/dL (74-106); Potassium 3.5 mmol/L (3.5-5.1); Sodium 139 mmol/L (136-145); Total Protein 6.8 g/dL (6.4-8.2)
[2023-10-28 07:31] VITALS: PULSE 92; RESP 16
--- NOTE | 2023-10-28 08:22 | P.DS_ITS ---
DS: Providers Provider Date of admission: 10/25/23 11:55 Primary care physician: Non-Staff Physician, Admitting clinician: Rick Mcgarry Consults: 10/25/23 13:34 Consult to Orthopedic Surgery Routine Consulting Provider: Nabor Barfield Reason For Exam: Reason for consultation: Pubic rami fracture 10/25/23 13:35 Occupational Therapy Eval and Treat Routine Reason for consultation: Pubic rami fracture Physical Therapy Eval and Treat Routine Reason for consultation: Pubic rami fracture 10/26/23 08:34 Occupational Therapy Eval and Treat Routine Reason for consultation: for weightbearing as tolerated transfer and gait training Has provider been notified: No Physical Therapy Eval and Treat Routine Reason for consultation: physical therapy for weightbearing as tolerated transfer and gait training Has provider been notified: No Attending physician on discharge: Anushka Candelaria DS: Diagnosis Discharge Diagnosis (1) Closed fracture of right superior pubic ramus: Qualifiers: Encounter type: initial encounter Qualified Code(s): S32.511A - Fracture of superior rim of right pubis, initial encounter for closed fracture (2) Closed fracture of right inferior pubic ramus: Qualifiers: Encounter type: initial encounter Qualified Code(s): S32.591A - Other specified fracture of right pubis, initial encounter for closed fracture (3) COPD (chronic obstructive pulmonary disease): (4) Depression: (5) Bladder infection: (6) Hyperlipidemia: DS: Summary Hospital Course Hospital Course: patient is a pleasant 78-year-old female with past medical history of chronic obstructive pulmonary disease, iron deficiency anemia, chronic urinary tract infections, hyperlipidemia who presented to the Emergency Room after having a fall in between the bed and transferring. Patient was found to have pubic rami fractures, orthopedic consultation recommended physical therapy for weightbearing as tolerated for transfer and gait training. X-rays of ribs were negative for fractures and her pain has been controlled with topical lidoderm patch and oxycodone. She will be discharged to Acute intermediate facility. She denies any issues during discharge exam. She was also found to have a UTI, I placed her on Rocephin and then Cefdinir. She will complete 7 days of this and then resume her daily macrobid. She is to return to the ER with any worsening signs or symptoms. She will need [facility] pelvic X-rays and follow up with Dr. Barfield/ortho once discharged from Care facility. Status at Discharge Functional status at discharge: bed bound Overall status at discharge: patient is progressing back to baseline Time Spent with Patient Time attestation: Total time spent providing and/or coordinating discharge services: Time spent: greater than 30 minutes Exam Narrative Exam Narrative: General: Patient is alert, and oriented to person, place and time with normal affect, proper hygiene Skin: multiple ecchymoses over her upper extremities Head: atraumatic, acephalic Eyes: PERRLA, no nystagmus present, conjunctiva clear, no scleral icterus Ears: normal gross auditory acuity Heart: Normal rate and rhythm, no murmurs/rubs/gallops Lungs: no audible wheezes, crackles and normal breath sounds all lung recinos, pain in the lateral right ribs 3-7 Abdomen: Normal audible bowel sounds, no distension, No palpable masses, no organomegaly, no rebound/guarding/ or rigidity Musculoskeletal: no swelling bilateral lower extremities Neuro: CN II-X grossly intact Constitutional Vital Signs, click to edit/add: Last Vital Signs Temp 98.2 F 10/28/23 04:11 Pulse 92 H 10/28/23 07:31 Resp 16 10/28/23 07:31 BP 128/67 10/28/23 04:11 Pulse Ox 91 L 10/28/23 05:19 O2 Del Method Nasal Cannula 10/28/23 05:19 O2 Flow Rate 2 10/28/23 05:19 DS: Data Data Completed and Pending Labs on day of discharge: Labs from last 24 hours 10/28/23 04:24 Sodium 139 Potassium 3.5 Chloride 103 Carbon Dioxide 26.4 Anion Gap 13.1 BUN 16.0 Creatinine 0.74 Est GFR ( Amer) >60 Est GFR (Non-Af Amer) >60 BUN/Creatinine Ratio 21.6 Glucose 91 Calcium 8.6 Total Bilirubin 0.6 AST 16 ALT 21 Alkaline Phosphatase 62 Total Protein 6.8 Albumin 2.2 L Globulin 4.6 Albumin/Globulin Ratio 0.5 Discharge Plan Discharge Disposition: Xfer SNF Discharge Medications: New acetaminophen 500 mg Tablet 1,000 mg PO Q6H PRN (Reason: Pain) 30 Days Qty: 30 0RF oxycodone-acetaminophen 5-325 mg Tablet 1 tab PO Q4H PRN (Reason: Moderate Pain) 2 Days Qty: 12 0RF lidocaine 5 % Adhesive Patch,Medicated 1 patch topical QD@0800 7 Days Qty: 7 0RF cefdinir 300 mg Capsule 300 mg PO BID 7 Days Qty: 14 0RF Continued atorvastatin 20 mg tablet 20 mg PO DAILY Trelegy Ellipta 200-62.5-25 mcg blister with device 1 inh inhalation Q24H cholecalciferol (vitamin D3) 25 mcg (1,000 unit) capsule 2,000 unit PO DAILY albuterol sulfate 2.5 mg /3 mL (0.083 %) solution for nebulization 2.5 mg inhalation QID PRN (Reason: shortness of breath or wheezing) ferrous sulfate [FeroSul] 325 mg (65 mg iron) tablet 325 mg PO DAILY sertraline 25 mg tablet 25 mg PO Q24H Held nitrofurantoin monohyd/m-cryst 100 mg capsule 100 mg PO Q12H Hold Instructions: Resume on 11/04/23. hold until Cefdinir complete Print Language: Danish Activity Restrictions/Additional Instructions: Dr Barfield would like xrays q month to check for healing of pelvis after discharge Forms: Portal Instructions Follow Up Appointments: Dr Barfield would like xrays q month to check for healing of pelvis after discharge Discharge location: [facility]
[2023-10-28] MEDS: LIDOCAINE 5% PATCH 1 PATCH TOPICAL (09:00)
[2023-10-28] MEDS: CEFDINIR 300 MG CAPSULE PO (09:01)
[2023-10-28] MEDS: SERTRALINE HCL 50 MG TABLET 25 MG PO (09:01)
[2023-10-28] MEDS: CHOLECALCIFEROL (VITAMIN D3) 25 MCG/1,000 UNITS TABLET 50 MCG PO (09:01)
[2023-10-28] MEDS: FERROUS SULFATE 325 MG TABLET PO (09:01)
[2023-10-28] MEDS: [UNRECOGNIZED DRUG - REMARK] 1 EACH IH (09:03)
--- NOTE | 2023-10-28 09:52 | SWNOTE1 ---
ARNALDO spoke to Praveen at [facility] and they do not have an open bed for her to go skilled. SW updated case management.
--- NOTE | 2023-10-28 10:10 | PT.DAILY ---
Physical Therapy Daily Note PT Daily Note/Assess Start: 10/26/23 11:41 Freq: Status: Active Protocol: Document 10/28/23 10:06 RONY (Rec: 10/28/23 10:10 RONY [id number]) Physical Therapy Daily Note/Assessment Time In/Time Out Time In 09:43 Time Out 09:56 Pain In Pain Level 7 Pain Out Pain Level 8 Subjective Subjective Pt supine upon arrival. Reports whole R side feels like a tooth ache pain. Pt is somewhat agreeable to PT this morning. Denies wanting to sit EOB or perform chair transfer as it was unsuccessful in prior attempts . It hurts just to lay here and breathe, I don't want to inflict more pain if I don't have to. Pt does agree to bed level LE strengthening ex. Reports being medicated for pain prior to session. Therapeutic Exercise Time Therapeutic Exercise Minutes (minutes) 8 Therapeutic Exercise Units 1 Therapeutic Exercise Treatment Therapeutic Exercise Treatment Supine bilat AP, QS, GS, heel slides, abd slides (AA R), SLR (AA bilat), hip IR/ER rocking , and SAQ 10x ea. Pt reports increased pain on R side with most movements but tolerable. Total Physical Therapy Time Total Therapy Minutes 8 Total Physical Therapy Units 1 Summary Daily Note Summary Limited session due to pain. Pt very pleasant and willing to complete supine ex. Needs AA for abd slides and SLR on R side. Pt reports increased pain post rx to 810.
--- NOTE | 2023-10-28 10:44 | SWNOTE1 ---
ARNALDO spoke to pt and let her know [facility] does not have an opening. Pt's not in room. ARNALDO reviewed star ratings list from medicare.gov. At this time pt would like [facility] as they are sister facility to [facility]. ARNALDO to see if they have an opening and will check back in once is here. [facility] does have openings. Referral sent to [facility]. Referral included face sheet, ED note, H&P, provider notes, case management report, nursing notes, diagnostic imaging, med list, and PT/OT notes.
[2023-10-28] MEDS: OXYCODONE HCL/ACETAMINOPHEN 5MG/325MG 1 TAB PO ×2 (10:45→14:48)
[2023-10-28 11:25] VITALS: O2SAT 93
--- NOTE | 2023-10-28 11:36 | CM.NOTE ---
Rounds made with Dr. Candelaria, pt will discharge to [facility] today for skilled therapy.
--- NOTE | 2023-10-28 11:45 | CM.NOTE ---
2nd Notice for Important Message From Medicare discussed with pt, pt denies any questions or concerns.
--- NOTE | 2023-10-28 11:47 | SWNOTE1 ---
ARNALDO spoke with pt's and pt in room. SW explained to that [facility] does not have any openings. ARNALDO did provide list from medicare.gov for him to review. He voiced [facility] was so close, but he voiced understanding. Pt's is agreeable and would like SW to try [facility]. ARNALDO did let him know the referral is sent and we are waiting to hear back. SW let him know that pt is dc today and if [facility] can accept she will go today. He voiced understanding. Pt would liek to go by ambulance due to pain. ARNALDO spoke with nurse and in agreement stretcher for transport. SW did assist pt's with googling the location of [facility], he voiced he will use GPS in his car, SW provided address.
--- NOTE | 2023-10-28 12:09 | XR_ITS ---
The [address] [address] Patient Name: JOSE BROWN MRN: [id number] date: 1945 Sex: F Assigned Patient Location: MS Current Patient Location: Accession/Order Number: [id number] Exam Date: 10/28/2023 13:45 Report Date: 10/28/2023 14:20 At the request of: OG BRICEÑO Procedure: XR ribs RT 2V EXAM: XR ribs RT 2V HISTORY: pain/fall COMPARISON: Right rib series dated 10/25/2023. TECHNIQUE: Right rib series was performed FINDINGS: No obvious displaced or deforming rib fractures are seen, small undisplaced fractures may be difficult to identify acutely. No obvious focal lytic or sclerotic lesion. No obvious pneumothorax. Mild degenerative changes in the dorsal spine with mild convexity to the left. Displaced proximal right humeral fracture similar to the prior study and assumed chronic, correlate with history. XR/XR ribs RT 2V IMPRESSION: Right rib series fails to demonstrate obvious displaced or deforming fracture. Follow-up as needed. Electronically authenticated by: JOSE CARLOS FERMIN Date: 10/28/2023 14:20
--- NOTE | 2023-10-28 13:26 | SWNOTE1 ---
SW spoke to pt's daughter in law in room as she wanted updated in regards to dc plans. After conversing with pt, pt's daughter in law, and pt's they are all in agreement with [facility]. SW waiting to hear back if they can accept.
[2023-10-28 13:55] VITALS: BP 132/68; PULSE 93; RESP 18; TEMP 36.6; O2SAT 91
--- NOTE | 2023-10-28 14:29 | SWNOTE1 ---
Evelyn at [facility] sent SW a message and they would like to do an onsite visit. SW to let family know. [facility] is concerned as pt has to go at end of hallway away from nurses station.
--- NOTE | 2023-10-28 15:48 | PC.NURSE ---
report called to Lesly at [facility]
--- NOTE | 2023-10-28 15:50 | SWNOTE1 ---
ARNALDO spoke to Evelyn at [facility] and they do not need to do an onsite visit. ARNALDO sent over dc med rec, CRF, weight bearing status order, and dc summary. ARNALDO set up [facility] for 5:00. ARNALDO notified doctor, nurse, pt, and pt's . ARNALDO completed HENS. Pt is going to [facility] skilled.
[2023-10-28] MEDS: ENOXAPARIN SODIUM 40 MG/0.4 ML SYRINGE SUBQ (17:07)
== END 2023-10-28 18:55 | DRG 536 ==
LOC: ER 11:54 → MS 11:57
PROVIDERS: Family Medicine; Admitting Provider Family Medicine; Emergency Provider Emergency Medicine; Visit Provider Family Medicine
DX: S32.511A Fracture of superior rim of right pubis, initial encounter for closed fracture (principal); S32.591A Other specified fracture of right pubis, initial encounter for closed fracture; J44.9 Chronic obstructive pulmonary disease, unspecified; F32.A Depression, unspecified; E78.5 Hyperlipidemia, unspecified; N30.20 Other chronic cystitis without hematuria; W19.XXXA Unspecified fall, initial encounter; Z87.891 Personal history of nicotine dependence; Z79.899 Other long term (current) drug therapy; S61.411A Laceration without foreign body of right hand, initial encounter; Z23 Encounter for immunization; F03.90 Unspecified dementia, unspecified severity, without behavioral disturbance, psychotic disturbance, mood disturbance, and anxiety
CPT/HCPCS: 36415; 71045; 71100; 73523; 80053; 90471; 90715; 90732; 94640; 94761; 96365; 96366; 96372; 96375; 97110; 97162; 97165; 97530; 99283; 99285; G0009; J1170

== ENCOUNTER 2023-12-02 10:55 | Outpatient (OUT) | payer MEDICARE, OTHER, SELFPAY ==
--- NOTE | 2023-12-02 | XR_ITS ---
The [address] [address] Patient Name: JOSE BROWN MRN: [id number] date: 1945 Sex: F Assigned Patient Location: Current Patient Location: Accession/Order Number: [id number] Exam Date: 12/02/2023 11:00 Report Date: 12/03/2023 07:43 At the request of: JULIA SAUCEDO Procedure: XR shoulder RT min 2V PROCEDURE: XR shoulder RT min 2V COMPARISON: None HISTORY: RIGHT SHOULDER PAIN FINDINGS: BONES:Transverse right humeral neck fracture with 2.6 cm medial displacement of the humeral diaphysis in relation to the humeral head. The humeral head appears normally situated at high riding consistent with a chronic rotator cuff rupture. Complex fracture of the right distal clavicle. SOFT TISSUES:Negative. No visible soft tissue swelling. EFFUSION:None visible. OTHER: Vascular calcifications Call results initiated through operations XR/XR shoulder RT min 2V IMPRESSION: Right humeral neck fracture with displacement of the diaphysis Complex right distal clavicle fracture Electronically authenticated by: KENDRICK CAMACHO Date: 12/03/2023 07:43
--- NOTE | 2023-12-02 | XR_ITS ---
The [address] [address] Patient Name: JOSE BROWN MRN: [id number] date: 1945 Sex: F Assigned Patient Location: Current Patient Location: Accession/Order Number: [id number] Exam Date: 12/02/2023 11:00 Report Date: 12/03/2023 07:35 At the request of: JULIA SAUCEDO Procedure: XR hip RT 2V w/ pelvis PROCEDURE: XR hip RT 2V w/ pelvis COMPARISON: 10/25/2023 HISTORY: RIGHT HIP PAIN FINDINGS: BONES:Subacute fractures involving the lateral aspect of the right superior pubic ramus and medial aspect of the right inferior pubic ramus with increased callus formation. No new fracture or dislocation. 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 Remote internal fixation of the left proximal femur partially visualized. Moderate degenerative changes of the spine SOFT TISSUES:Negative. No visible soft tissue swelling. EFFUSION:None visible. OTHER: Negative. XR/XR hip RT 2V w/ pelvis IMPRESSION: Subacute healing fractures of the right superior and inferior pubic rami Electronically authenticated by: KENDRICK CAMACHO Date: 12/03/2023 07:35
== END 2023-12-02 10:56 | disposition home or self-care (01) ==
LOC: EC 10:55
PROVIDERS: Visit Provider Orthopaedic Surgery
DX: M25.551 Pain in right hip (principal); M25.511 Pain in right shoulder; S42.291A Other displaced fracture of upper end of right humerus, initial encounter for closed fracture; S42.031A Displaced fracture of lateral end of right clavicle, initial encounter for closed fracture; S32.591A Other specified fracture of right pubis, initial encounter for closed fracture
CPT/HCPCS: 73030; 73502

== ENCOUNTER 2025-03-20 17:34 | Inpatient (IN) | payer MEDICARE, OTHER, SELFPAY ==
--- OUTSIDE RECORDS SUMMARY | 2023-11-18 06:40 | XMS_ITS ---
Author Organization [facility] Address [address] [place] [address] Care Team Providers Care Director Semiconductor Name Role Phone Nabor Barfield Unavailable [phone] REASON FOR VISIT RIGHT PUBIC FX/RIGHT ARM PAIN Encounters Encounter Location Date Provider Diagnosis [facility] [address] [facility] [place] [address] [place] [address] 11/18/2023 Nabor Barfield Plan Of Treatment No Information Progress Notes * LIZ BROWNOB:1945 ( 79 yo F)Acc No.[id number]:11/18/2023 Patient: BRANDY CHRISTENSENIL Provider: David Barfield MD :1945 A ge:78 Y S ex:Female Date:11/18/2023 Address:[address] [place], [place] [address] [id number] Subjective: * Chief Complaints: * 1 . RIGHT PUBIC FX/RIGHT ARM PAIN. * Medical History: Objective: * Vitals: Assessment: Plan: * Treatment: Forms: * Images: * Electronic signature of Kamar Barfield MD on 03/20/2025 at 05:46 PM EDT Sign off status: Pending * Provider: David Barfield MD Date: 0 11/18/2023 Generated for Debbie kyle/Chai/eTelmaitting on: 0 03/20/2025 05:46 PM EDT
--- OUTSIDE RECORDS SUMMARY | 2024-01-13 06:00 | XMS_ITS ---
Author Organization [facility] Address [address] [place] [address] Care Team Providers Care Aoc Director Intelligence Officer Name Role Phone Nabor Barfield Unavailable [phone] REASON FOR VISIT RIGHT PUBIC RAMUS FX, RIGHT PROX HUMERUS FX Encounters Encounter Location Date Provider Diagnosis [facility] [address] [facility] [place] [address] 01/13/2024 Nabor Barfield Other closed nondisplaced fracture of proximal end of right humerus, initial encounter S42.294A and Closed fracture of ramus of right pubis, initial encounter S32.591A Assessments Encounter Date Diagnosis (ICD Code) Assessment Notes Treatment Notes Treatment Clinical Notes Section Notes 01/13/2024 Other closed nondisplaced fracture of proximal end of right humerus, initial encounter (ICD-10 - S42.294A) 01/13/2024 Closed fracture of ramus of right pubis, initial encounter (ICD-10 - S32.591A) Plan Of Treatment Pending Test Test Name Order Date [facility]- PELVIS [id number] 01/13/2024 Progress Notes * LIZ BROWNOB:1945 ( 79 yo F)Acc No.[id number]:01/13/2024 Patient: JOSE CHRISTENSEN Provider: David Barfield MD :1945 A ge:78 Y S ex:Female Date:01/13/2024 Address:[address] [place], [place] [address] [id number] Subjective: * Chief Complaints: * 1 . RIGHT PUBIC RAMUS FX, RIGHT PROX HUMERUS FX. * Medical History: Objective: * Vitals: Assessment: * Assessment: 1. O ther closed nondisplaced fracture of proximal end of right humerus, initial encounter - S42.294A 2 . C losed fracture of ramus of right pubis, initial encounter - S32.591A Plan: * Treatment: 2. C losed fracture of ramus of right pubis, initial encounter I maging: [facility]- PELVIS [address] Forms: * Images: * Electronic signature of Kamar Barfield MD on 03/20/2025 at 05:46 PM EDT Sign off status: Pending * Provider: David Barfield MD Date: 0 01/13/2024 Generated for Debbie kyle/Chai/Markitting on: 0 03/20/2025 05:46 PM EDT
[2025-03-20] VITALS (26 sets, daily range): BP systolic 103–154; BP diastolic 55–69; PULSE 69–101; TEMP 36.8; O2SAT 88–97; BMI 24.1; BMI 24.9
--- NOTE | 2025-03-20 17:44 | XR_ITS ---
The [address] [address] Patient Name: JOSE BROWN MRN: [id number] date: 1945 Sex: F Assigned Patient Location: ER Current Patient Location: ER Accession/Order Number: [id number] Exam Date: 03/20/2025 18:39 Report Date: 03/20/2025 18:41 At the request of: HAYDEE CARPIO MD Procedure: XR chest 1V Single view chest: CLINICAL HISTORY: SOB COMPARISON: Chest 10/25/2023 FINDINGS: The heart is normal in size. No lung consolidation pneumothorax pleural effusion or free air. XR/XR chest 1V IMPRESSION: NO ACUTE FINDINGS. Impression dictated by: Mendel Garcia Jr.OTori 03/20/2025 6:41 PM Dictation Location: [place] [address] Electronically authenticated by: [id number] Y Date: 03/20/2025 18:41
--- NOTE | 2025-03-20 17:44 | ECG_ITS ---
The [facility] Test Date: 2025-03-20 Pat Name: JOSE BROWN Department: Room: - Gender: Female Broadband Technician: : 1945 Requested By: 1030 Order Number: [id number] Reading MD: NISHANT SALMERON M.D. Measurements Intervals [place] Rate: 78 P: 60 TX: 146 QRS: -8 QRSD: 76 T: 63 QT: 378 QTc: 412 Interpretive Statements 1100 Sinus rhythm 1470 with occasional supraventricular premature complexes 2420 RSR (QR) in lead V1/V2, consistent with right ventricular conduction delay 8102 Low QRS voltage in chest leads abnormal ECG Compared to ECG 02/18/2023 11:19:51 Low QRS voltage now present ST (T wave) deviation no longer present Electronically Signed On 03-21-2025 8:36:30 EDT by NISHANT SALMERON M.D.
--- OUTSIDE RECORDS SUMMARY | 2025-03-20 17:45 | XMS_ITS | Encounter Summary ---
Author Organization [facility] Address [address] [facility] [place] [address] Care Team Providers Care Director Translational Name Role Phone Unavailable Primary Care Provider Unavailabl e Encounter Details Date Type Department Care Team (Late st Contact Info) Description 11/06/2023 Abstract [facility] [address] [facility] [address] [place] [address] Isai Mariscal MD [address] [facility] [address] [place] [address] Social History Tobacco Use Types Packs/Day Years Used Date Smoking Tobacco: Never Assessed Comments Unknown Sex and Gender Information Value Date Recorded Sex Assigned at Not on file Legal Sex Female 7:19 PM EDT Gender Identity Not on file Sexual Orientation Not on file documented as of this encounter Plan of Treatment Not on file documented as of this encounter Visit Diagnoses Not on filedocumented in this encounter
--- NOTE | 2025-03-20 17:46 | ED.GENADUL1 ---
HPI HPI - General Adult General Chief complaint: Nausea/Vomiting/Diarrhea Stated complaint: VOMITING Time Seen by Provider: 03/20/25 17:40 Source: patient Mode of arrival: ambulance History of Present Illness HPI narrative: 79-year-old female presents for a chief complaint of vomiting. This appears to have started today and she felt a little bit short of breath. She lives at home with her and was transported here by paramedics. He is not here to give any further history. She is a poor historian. She does not seem to complain of abdominal pain or chest pain. Related Data Home Medications ?Medication ?Instructions ?Recorded ?Confirmed albuterol sulfate 2.5 mg/3 mL 2.5 mg inhalation QID PRN 02/18/23 10/25/23 (0.083 %) solution for nebulization shortness of breath or wheezing atorvastatin 20 mg tablet 20 mg PO DAILY 02/18/23 10/25/23 cholecalciferol (vitamin D3) 25 2,000 unit PO DAILY 02/18/23 10/25/23 mcg (1,000 unit) capsule fluticasone fur. 200 mcg-umeclid 1 inh inhalation Q24H 02/18/23 10/25/23 62.5 mcg-vilant 25 mcg inhalat.powder (Trelegy Ellipta) ferrous sulfate 325 mg (65 mg 325 mg PO DAILY 10/25/23 10/25/23 iron) tablet (FeroSul) nitrofurantoin 100 mg PO Q12H 10/25/23 10/25/23 monohydrate/macrocrystals 100 mg capsule Held on 10/28/23. Instructions: Resume on 11/04/23. hold until Cefdinir complete sertraline 25 mg tablet 25 mg PO Q24H 10/25/23 10/25/23 Previous Rx's ?Medication ?Instructions ?Recorded acetaminophen 500 mg tablet 1,000 mg (2 x 500 mg) PO Q6H PRN 10/28/23 Pain 30 days #30 tabs cefdinir 300 mg capsule 300 mg PO BID 7 days #14 caps 10/28/23 lidocaine 5 % topical patch 1 patch topical QD@0800 7 days #7 10/28/23 ea oxycodone-acetaminophen 5 mg-325 1 tab PO Q4H PRN Moderate Pain 2 10/28/23 mg tablet days #12 tabs Allergies Allergy/AdvReac Type Severity Reaction Status Date / Time No Known Drug Allergies Allergy Verified 05/02/23 16:03 Opioid HPI Opioid Management Most Recent Opioid Data: Last Pain Scale 7 10/28/23, 17:05 Last Pain Intensity 7 10/28/23, 10:06 Last ORT Total Score 1 10/25/23, 11:24 Last ORT Risk Category Low Risk 10/25/23, 11:24 Review of Systems ROS Narrative Not obtainable, not fully oriented [facility] Medical History (Updated 03/20/25 @ 18:50 by Selvin Flynn MD) Chronic right shoulder pain ?M25.511 - Pain in right shoulder (ICD-10) ?G89.29 - Other chronic pain (ICD-10) History of fall ?Z91.81 - History of falling (ICD-10) COPD (chronic obstructive pulmonary disease) ?J44.9 - Chronic obstructive pulmonary disease, unspecified (ICD-10) Depression ?F32.A - Depression, unspecified (ICD-10) Bladder infection ?N30.90 - Cystitis, unspecified without hematuria (ICD-10) Hyperlipidemia ?E78.5 - Hyperlipidemia, unspecified (ICD-10) Family History Father Family history of cancer Family history of diabetes mellitus Mother Family history of cancer Aunt Family history of COPD (chronic obstructive pulmonary disease) Social History Within the past year, how often did you have a drink containing alcohol: 4 or more times a week Smoking status: Former smoker Non-prescribed substance use: denies use Highest level of school completed/degree received: Bachelor's degree Exam Narrative Exam Narrative: Nurses note and vital signs reviewed and patient is not hypoxic. General: The patient appears in no acute distress. She is holding an emesis bag. Skin: Warm, dry, no pallor noted. There is no rash noted. Head: Normocephalic, atraumatic Eye: Normal conjunctiva, no drainage Ears, Nose, Mouth, and Throat: oral mucosa is moist. Nares patent. Cardiovascular: Regular Rate and Rhythm Respiratory: Bilateral rhonchi present Back: non-tender GI: Soft and no apparent tenderness Musculoskeletal: The patient has no evidence of calf tenderness, no pitting edema, symmetrical pulses noted bilaterally Neurological: Awake and alert. She knows her name and where she is but she does not know the year. Psychiatric: Cooperative Constitutional Vital Signs, click to edit/add: Last Vital Signs Temp 98.2 F 03/20/25 17:35 Pulse 71 03/20/25 18:32 Resp 18 03/20/25 18:32 BP 154/55 H 03/20/25 17:38 Pulse Ox 96 03/20/25 18:32 O2 Del Method Nasal Cannula 03/20/25 18:32 O2 Flow Rate 2 03/20/25 18:32 Course Vital Signs Vital signs: Vital Signs Temperature 98.2 F 03/20/25 17:35 Pulse Rate 76 03/20/25 17:35 Respiratory Rate 18 03/20/25 17:35 Blood Pressure 154/55 H 03/20/25 17:35 Pulse Oximetry 91 L 03/20/25 17:35 Oxygen Delivery Method Room Air 03/20/25 17:35 Temperature 98.2 F 03/20/25 17:35 Pulse Rate 71 03/20/25 18:32 Respiratory Rate 18 03/20/25 18:32 Blood Pressure 154/55 H 03/20/25 17:38 Pulse Oximetry 96 03/20/25 18:32 Oxygen Delivery Method Nasal Cannula 03/20/25 18:32 Oxygen Delivery Flow Rate 2 03/20/25 18:32 Medical Decision Making MDM Narrative Medical decision making narrative: WBC is normal at 7.6. Other tests are ordered and pending and the patient is signed out to Dr. Hou at change of shift. Differential Diagnosis Differential Diagnosis: Nausea and vomiting, dehydration, acute kidney injury Lab Data Lab results reviewed: Yes I reviewed the patient's lab results Labs: Lab Results 03/20/25 Range/Units 17:48 WBC 7.6 (4.0-11.0) 10^3/uL RBC 4.38 (4.20-5.40) 10^6/uL Hgb 12.9 (12.0-16.0) g/dL Hct 40.2 (36.0-48.0) % MCV 91.8 (81.0-99.0) fL MCH 29.5 (26.7-34.0) pg MCHC 32.1 (29.9-35.2) g/dL RDW 13.6 (11.0-15.0) % Plt Count 259 (150-450) 10^3/uL MPV 9.6 (9.5-13.5) fL Neut % (Auto) 69.1 (43.0-75.0) % Lymph % (Auto) 19.0 L (20.5-60.0) % [place] % (Auto) 8.7 (1.7-12.0) % Eos % (Auto) 1.8 (0.9-7.0) % Baso % (Auto) 0.5 (0.2-2.0) % Neut # (Auto) 5.3 (1.4-6.5) 10^3/uL Lymph # (Auto) 1.5 (1.2-3.8) 10^3/uL [place] # (Auto) 0.7 (0.3-0.8) 10^3/uL Eos # (Auto) 0.1 (0.0-0.7) 10^3/uL Baso # (Auto) 0.0 (0.0-0.1) 10^3/uL Abs Immat Gran (auto) 0.07 H (0.00-0.03) 10^3/uL Imm/Tot Granulo (auto) 0.9 H (0.0-0.5) % Sodium 138 (136-145) mmol/L Potassium 4.0 (3.5-5.1) mmol/L Chloride 104 (98-107) mmol/L Carbon Dioxide 26.3 (21.0-32.0) mmol/L Anion Gap 11.7 BUN 21.0 H (7.0-18.0) mg/dL Creatinine 0.93 (0.55-1.02) mg/dL Est GFR ( Amer) >60 (>=60 mL/min/1.73m^2) Est GFR (Non-Af Amer) 58 L (>=60 mL/min/1.73m^2) BUN/Creatinine Ratio 22.6 Glucose 115 H (74-106) mg/dL Calcium 9.0 (8.5-10.1) mg/dL Discharge Plan Discharge Patient Disposition: Still a Patient
--- OUTSIDE RECORDS SUMMARY | 2025-03-20 17:46 | XMS_ITS | Patient Health Record ---
Author Organization [facility] Address [address] [place] [address] Care Team Providers Care Wireless Engineer Name Role Phone Nabor Barfield Unavailable [phone] Reason For Referral No Information Problems Problem Type SNOMED Code ICD Code Onset Dates Problem Status W/U Status Risk Notes Problem [id number] Other closed nondisplaced fracture of proximal end of right humerus, initial encounter (S42.294A) Active confirmed Problem 6913465277 Closed fracture of ramus of right pubis, initial encounter (S32.591A) Active confirmed Plan Of Treatment Pending Test Test Name Order Date SCC- SHOULDER 3 VIEW RIGHT 7[address] 024 SCC- HIP W/ PELVIS, RIGHT [id number] 12/02/19 24 Insurance Providers Payer Name Payer Address Payer Phone Subscriber Number Group Number Insured Name Patient Relationship to Insured Coverage Start Date Coverage End [place] [address] [place] [address] [id number] JOSE BROWN Self - patient is the insured
--- OUTSIDE RECORDS SUMMARY | 2025-03-20 17:46 | XMS_ITS | Clinical Summary ---
Author Organization [facility] Address [address] [place] [address] Phone Care Team Providers Care Overedger Name Role Phone Unavailable Primary Care Provider Unavailabl e Social History Tobacco Use Types Packs/Day Years Used Date Smoking Tobacco: Never Assessed Comments Unknown Sex and Gender Information Value Date Recorded Sex Assigned at Not on file Legal Sex Female 10:59 PM EST Gender Identity Not on file Sexual Orientation Not on file Plan of Treatment Health Maintenance Due Date Last Done Comments Lipid Panel 1945 Yearly Adult Physical 1945 Hepatitis C Screening 1963 DTaP/Tdap/Td Vaccines (1 - Tdap) 1967 Pneumococcal Vaccine (1 of 1 - PCV) 1995 Zoster Vaccines (1 of 2) 1995 Bone Density Scan 2010 RSV High Risk: (Elderly (60+ ) or Population) (1 - 1-dose 75+ series) 2020 COVID-19 Vaccine (1 - 2023-2 5 season) 2024 Influenza Vaccine (#1) 2025 HIB Vaccines Aged Out No longer eligi ble based on patient's age to complete this topic HPV Vaccines Aged Out No longer eligi ble based on patient's age to complete this topic Hepatitis A Vaccines Aged Out No long er eligible based on patient's age to complete this topic Hepatitis B Vaccines Aged Out No long er eligible based on patient's age to complete this topic IPV Vaccines Aged Out No longer eligi ble based on patient's age to complete this topic Meningococcal Vaccine Aged Out No norma norma eligible based on patient's age to complete this topic Rotavirus Vaccines Aged Out No longer eligible based on patient's age to complete this topic
--- OUTSIDE RECORDS SUMMARY | 2025-03-20 17:46 | XMS_ITS | Encounter Summary ---
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 Name Role Phone Unavailable Primary Care Provider Unavailabl e Encounter Details Date Type Department Care Team (Late st Contact Info) Description 01/06/2025 External Result Encounter [facility] Unsolicited Pete Erazo, DO [address] [place] [address] Social History Tobacco Use Types Packs/Day Years Used Date Smoking Tobacco: Never Assessed Comments Unknown Sex and Gender Information Value Date Recorded Sex Assigned at Not on file Legal Sex Female 7:19 PM EDT Gender Identity Not on file Sexual Orientation Not on file documented as of this encounter Plan of Treatment Not on file documented as of this encounter Procedures Procedure Name Priority Date/Time Associated Diagnosis Comments CT CHEST WO IV CONTRAST 01/06/2025 12:47 PM EDT documented in this encounter Results * CT chest wo IV contrast (01/06/2025 12:47 PM EDT) Anatomical Region Laterality Modality Body, Chest Computed Tomogra phy 01/06/2025 12:4 7 PM EDT Impressions 01/06/2025 1:13 PM EDT SIMILAR MEDIASTINAL LYMPH NODES. OBSTRUCTIVE LUNG DISEASE. PARENCHYMAL CHANGES WITH SLIGHT WORSENING AT THE LUNG BASES. SUSPECTED MINIMAL PLEURAL FLUID. SCATTERED CALCIFIED AND NONCALCIFIED NODULARITY WITH NEW GROUNDGLASS NODULES BILATERALLY. CONTINUED FOLLOW-UP IS SUGGESTED. Impression dictated by: Angelica Díaz M.D. 01/06/2025 1:11 PM Dictation Location: [place] [address] Transcribed By: JOAO 01/06/25 1311 Dictated By: Angelica Díaz MD 01/06/25 1247 Signed By: <Electronically signed by MD Angelica Díaz in OV> 01/06/25 1311 Narrative 01/06/2025 1:13 PM EDT [facility] [place] [address] [place], [place] [id number] CT Scan Report Signed Patient: Jazzmine Kim MR#: [id number] 6 : 1945 Acct:[id number] Age/Sex: 79 / F ADM Date: 01/08/25 Loc: Room: Type: [facility]CR Attending Dr: Petra Holliday DO Copies to: DO Pete Fofana II, DO Ordering Provider: Pete Erazo II, DO Date of Service: 01/06/25 CT/CT chest wo con: D47.2 - Monoclonal gammopathy CT CHEST WITHOUT CONTRAST COMPARISON: 04/24/2023 CLINICAL DATA: History of MGUS and lung nodules. Spiral images were obtained through the chest without contrast. Images were reviewed using both narrow and wide window settings. This CT exam was performed using one or more following dose reduction techniques: Automated exposure control, adjustment of the mA and/or kV according to patient size, or use of iterative reconstruction technique. The heart is top normal in size. There is no pericardial effusion. Minor coronary disease is seen. There is no aortic aneurysm. There is a small amount of plaque at the aortic arch, descending aorta and proximal great vessels. There is a precarinal lymph node on the right with short axis dimension of 11 mm. There is also subcarinal lymph node with short axis dimension of 8 mm. The hilar margins difficult to evaluate without contrast. Posttraumatic and degenerative changes are seen at the right shoulder. Degenerative changes are also noted at the spine. There is mild bilateral apical scarring. Airspace lucencies are present compatible with obstructive disease. A trace amount of pleural fluid is suspected, right greater than left. There is consolidation at the posterior lower lobes, greater on the right. There is slight interval worsening. Additional atelectasis and/or scarring is seen. There are multiple tiny calcified and noncalcified pulmonary nodules. These are similar. There are a few developing groundglass nodular densities including the inferior medial right upper lobe on axial image 66 measuring 7 mm as well as smaller at the lateral basilar right upper lobe (axial images 27 and 30)) and the left lower lobe (axial image 25). No pneumothorax is seen. Limited imaging through the upper abdomen shows minor cholelithiasis. Left adrenal limb thickening is seen. CT/CT chest wo con Procedure Note Radiology, Radiologist, - 02/11/[address] [facility] [place] [address] [place] [address] CT Scan Report Signed Patient: Jazzmine Kim AMR#: [id number] 6 : 5Acct:[id number] Age/Sex: 79 / FADM Date: 01/08/25 Loc: XT Room:Type: [facility] Attending Dr: Petra Holliday DO Copies to: DO Pete Fofana II, DO Ordering Provider: Pete Erazo II, DO Date of Service: 01/06/25 CT/CT chest wo con: D47.2 - Monoclonalgammopathy CT CHEST WITHOUT CONTRAST COMPARISON: 04/24/2023 CLINICAL DATA: History of MGUS and lung nodules. Spiral images were obtained through the chest without contrast. Imageswere reviewed using both narrow and wide window settings. This CT exam was performed using one ormore following dose reduction techniques: Automated exposure control, adjustment of the mAand/or kV according to patient size, or use of iterative reconstruction technique. The heart is top normal in size. There is no pericardial effusion. Minorcoronary disease is seen. There is no aortic aneurysm. There is a small amount of plaque at theaortic arch, descending aorta and proximal great vessels. There is a precarinal lymph node on theright with short axis dimension of 11 mm. There is also subcarinal lymph node with short axisdimension of 8 mm. The hilar margins difficult to evaluate without contrast. Posttraumatic anddegenerative changes are seen at the right shoulder. Degenerative changes are also noted at thespine. There is mild bilateral apical scarring. Airspace lucencies are presentcompatible with obstructive disease. A trace amount of pleural fluid is suspected, right greater thanleft. There is consolidation at the posterior lower lobes, greater on the right. Thereis slight interval worsening. Additional atelectasis and/or scarring is seen. There aremultiple tiny calcified and noncalcified pulmonary nodules. These are similar. There are a fewdeveloping groundglass nodular densities including the inferior medial right upper lobe on axial image 66measuring 7 mm as well as smaller at the lateral basilar right upper lobe (axial images 27 and 30))and the left lower lobe (axial image 25). No pneumothorax is seen. Limited imaging through the upper abdomen shows minor cholelithiasis.Left adrenal limb thickening is seen. CT/CT chest wo con IMPRESSION: SIMILAR MEDIASTINAL LYMPH NODES. OBSTRUCTIVE LUNG DISEASE. PARENCHYMAL CHANGES WITH SLIGHT WORSENING AT THE LUNG BASES. SUSPECTED MINIMAL PLEURAL FLUID. SCATTERED CALCIFIED AND NONCALCIFIED NODULARITY WITH NEW GROUNDGLASSNODULES BILATERALLY. CONTINUED FOLLOW-UP IS SUGGESTED. Impression dictated by: Angelica Díaz M.D. 01/06/2025 1:11 PM Dictation Location: [place] [address] Transcribed By: [facility] 01/06/25 1311 Dictated By: Angelica Díaz MD 01/06/25 1247 Signed By: <Electronically signed by MD Angelica Díaz in [place]> 01/06/25 1311 Pete Eraoz DO IMG CT PROCEDURES Edited Result - Final documented in this encounter Visit Diagnoses Not on filedocumented in this encounter
--- OUTSIDE RECORDS SUMMARY | 2025-03-20 17:46 | XMS_ITS | CCD ---
Author Organization [facility] Care Team Providers Care Director Of Patient Care Name Role Phone Lety Flynn Unavailable Anatoliy Nunez Unavailable Laron Gomes Unavailable Lety Flynn Unavailable Juliana Ye Unavailable SARA Flynn Primary Care Provider SARA Flynn Attending Provider [phone] SARA Flynn Referring Provider [phone] DO Pete Erazo II Attending Provider Mckenzie Bates Unavailable SARA Flynn Primary Care Provider SARA Flynn Attending Provider [phone] SARA Flynn Referring Provider DO Pete Erazo II Attending Provider TRENTON Samson Attending Provider [phone] SARA Flynn Primary Care Provider SARA Flynn Referring Provider DO Pete Erazo II Attending Provider SARA Flynn Attending Provider MD Elsy Dumas Referring Provider Cornel Lopez Unavailable SARA Flynn Primary Care Provider MD Cornel Lopez Attending Provider TRENTON Valenzuela Emergency Provider SARA Flynn Attending Provider SARA Flynn Referring Provider DO Pete Erazo II Attending Provider LETY FLYNN Primary Care Physician [phone] Joshua Watts Unavailable Asaad, Imad Unavailable SARA Flynn Primary Care Provider SARA Flynn Attending Provider LETY FLYNN Referring Unavailable TURNER, Garcia R Attending Unavailable KAPLE, LETY Referring Unavailable TURNER, Garcia R Attending Unavailable TURNER, Garcia R Attending Unavailable TURNER, Garcia R Referring Unavailable TURNER, Garcia R Admitting Unavailable TURNER, Garcia R Attending Unavailable TURNER, Garcia R Attending Unavailable TURNER, Garcia R Referring Unavailable TURNER, Garcia R Admitting Unavailable Orzech, Cinthya X Admitting Unavailable Orzech, Cinthya X Attending Unavailable TURNER, Garcia R Attending Unavailable TURNER, Garcia R Admitting Unavailable Orzech, Cinthya X Attending Unavailable TURNER, Garcia R Referring Unavailable Orzech, Cinthya X Attending Unavailable Orzech, Cinthya X Attending Unavailable Orzech, Cinthya X Attending Unavailable SARA Flynn Primary Care Provider SARA Flynn Attending Provider DeWilde DO, Petra Primary Care Provider DeWilde DO, Petra Attending Provider DeWilde DO, Petra Primary Care Provider DeWilde DO, Petra Attending Provider [phone] Unavailable Primary Care Provider Unavailabl e DeWilde DO, Petra Primary Care Provider DeWilde DO, Petra Attending Provider Pete Erazo DO Other Provider [phone] Pete Erazo DO Other Provider Pete Erazo II Consulting Unavaila ble DeWilde, Petra Primary Care Unavailable DeWilde, Petra Attending Unavailable DeWilde, Petra Admitting Unavailable Kaple, Lety Admitting Unavailable Kaple, Lety Primary Care Unavailable Kaple, Lety Attending Unavailable Kaple, Lety Admitting Unavailable Kaple, Lety Primary Care Unavailable Kaple, Lety Attending Unavailable DeWilde, Petra Admitting Unavailable DeWilde, Petra Primary Care Unavailable DeWilde, Petra Attending Unavailable DeWilde, Petra Admitting Unavailable DeWilde, Petra Primary Care Unavailable DeWilde, Petra Attending Unavailable DeWilde, Petra Primary Care Unavailable DeWilde, Petra Attending Unavailable DeWilde, Petra Admitting Unavailable DeWilde, Petra Primary Care Unavailable DeWilde, Petra Attending Unavailable DeWilde, Petra Admitting Unavailable Allergies Allergy Classification Reported Allergen(s) Allergy Type Date of Onset Reaction(s) Facility (1 source) No Known Medication Allergies; Translations: [No Known Medication Allergies] Propensity to adverse reactions (disorder) [facility] Medications Current Medications Medication Drug Class(es) Dates Sig (Normalized) Sig (Original) 30 ACTUAT fluticasone furoate 0.2 MG/ACTUAT / umeclidinium 0.0625 MG/ACTUAT / vilanterol 0.025 MG/ACTUAT Dry Powder Inhaler [Trelegy] (20 sources) Start: 06-18-2022 Start: 06-18-2022 take 1 puff(s) by in halation once daily Trelegy Ellipta 200-62.5-25 MCG/ACT 1 puff Inhalation Once a day Jun, Active Start: 06-18-2022 take 1 puff(s) by in halation once daily Trelegy Ellipta 200-62.5-25 MCG/ACT 1 puff Inhalation Once a day for 90 days Jun, Active acetaminophen 325 mg oral tablet (20 sources) Start: 04-12-2023 take 2 tablets by mouth every six hours as needed for pain Acetaminophen (Tylenol) 325 mg Tablet Active 650 MG PO Q6H as needed for Pain April 12, 2023 12:00am Acetaminophen 65 0 MG/20.3ML as directed Orally Active Albuterol (Eqv-Proventil HFA) 90 mcg/inh inhalation aerosol (10 sources) Start: 04-19-2023 Albuterol (Eqv-Proventil HFA) 90 mcg/inh inhalation aerosol Refills(s) 0 Start Date: 04/19/23 Status: Ordered Albuterol Sulfate (Proair Hfa) 90 mcg/actuation Hfa Aerosol Inhaler (20 sources) Start: 06-02-2018 take 1 puff(s) by inhalation every four to six hours as needed Albuterol Sulfate (Proair Hfa) 90 mcg/actuation Hfa Aerosol Inhaler Active 1 - 2 PUFF INHALATION EVERY 4-6 HOURS as needed for Shortness Of Breath June 02, 2018 12:00am Start: 06-02-2018 take 1 puff(s) by in halation every four to six hours as needed Albuterol Sulfate (Proair Hfa) 90 mcg/actuation Hfa Aerosol Inhaler Active 1 - 2 PUFF INHALATION EVERY 4-6 HOURS as needed for Shortness Of Breath June 01, 2018 11:00pm Start: 06-02-2018 take 1 puff(s) by in halation every four to six hours Albuterol Sulfate (Proair Hfa) 90 mcg/actuation Hfa Aerosol Inhaler Active 1 - 2 PUFF INHALATION EVERY 4-6 HOURS June 01, 2018 11:00pm Start: 06-02-2018 take 1 puff(s) by in halation every four to six hours Albuterol Sulfate (Proair Hfa) 90 mcg/actuation Hfa Aerosol Inhaler Active 1 - 2 PUFF INHALATION EVERY 4-6 HOURS June 02, 2018 12:00am atorvastatin 20 mg oral tablet (20 sources) HMG-CoA Reductase Inhibitor Start: 01-10-2024 End: 12-23-2024 take 1 tablet by mouth once daily at bedtime Atorvastatin 20 mg tablet Active 0 .ROUTE .COMPLEX 90 December 23, 2024 9:24am TAKE 1 TABLET BY MOUTH DAILY AT BEDTIME Start: 06-02-2018 End: 01-10-2024 take 1 tablet by mouth once daily Atorvastatin 20 mg Tablet Discontinued 20 MG PO Daily June 02, 2018 12:00am January 10, 2024 7:07am azithromycin 250 mg oral tablet (20 sources) Macrolide Antimicrobial Start: 06-04-2022 Azithromycin 250 MG 2 tablets on the first day, then 1 tablet daily for 4 days Orally Once a day for 5 day(s) May, Active Start: 05-04-2021 Azithromycin 2 50 MG 2 tablet on the first day, then 1 tablet daily for 4 days Orally Once a day for 5 day(s) Apr, Active Start: 06-03-2018 End: 06-10-2018 take 1 tablet by mouth once daily Azithromycin (Zithromax Z-Moe) 250 mg Tablet Discontinued 250 MG PO Daily 4 June 03, 2018 12:00am June 09, 2018 1:00am June 10, 2018 1:01am start on day 2 of therapy first dose given in ER Zithromax 500 MG 1 tablet Orally Active cholecalciferol 0.05 mg oral capsule (20 sources) Vitamin D Start: 06-02-2018 take 1 capsule by mouth once daily Cholecalciferol (Vitamin D3) (Vitamin D3) 2,000 unit Capsule Active 2000 UNITS PO Daily June 02, 2018 12:00am take 2 capsules by m outh every twenty-four hours Vitamin D3 1000 UNIT 2 capsule Orally On ce a day for 30 day(s) Active take 2 capsules by m outh every twenty-four hours Vitamin D3 1000 UNIT 2 capsule Orally On ce a day for 30 day(s) Active Cholecalciferol Active clarithromycin 500 mg oral tablet (2 sources) Macrolide Antimicrobial Start: 11-06-2021 take 1 tablet by mouth every twelve hours Clarithromycin 500 MG 1 tablet Orally every 12 hrs for 10 day(s) Stop atorvastatin while on the clarithromycin Nov, Active Fluticasone-Umeclidi n-Vilanter (19 sources) Start: 10-07-2024 Fluticasone-Umeclid in-Vilanter (Trelegy Ellipta) 200-62.5-25 mcg blister with device Active 1 INH INHALATION Daily 3 October 07, 2024 2:33pm Start: 04-12-2023 End: 10-07-2024 Uinfezppgxu-Sdguzwmon-Exfvgr er (Trelegy Ellipta) 200-62.5-25 mcg Blister With Device Discontinued 1 INH INHALATION Daily April 12, 2023 12:00am October 07, 2024 2:33pm Start: 04-12-2023 Fluticasone-Um eclidin-Vilanter (Trelegy Ellipta) 200-62.5-25 mcg Blister With Device Active 1 INH INHALATION Daily April 11, 2023 11:00pm Start: 04-12-2023 Fluticasone-Um eclidin-Vilanter (Trelegy Ellipta) 200-62.5-25 mcg Blister With Device Active 1 INH INHALATION Daily April 12, 2023 12:00am gabapentin 300 mg oral capsule (13 sources) Anti-epileptic Agent Start: 10-21-2024 take 1 capsule by mouth twice daily Gabapentin 300 mg capsule Active 300 MG PO Twice daily 180 90 October 21, 2024 12:00am Start: 07-22-2024 End: 10-21-2024 take 1 capsule by mouth once daily Gabapentin 300 mg capsule Discontinued 300 MG PO Daily 90 September 01, 2024 12:30pm October 21, 2024 11:23am Handicap placards (5 sources) Start: 07-16-2022 Handicap placards as directed for Expires in 5 years Jul, Active methylPREDNISolone 4 mg oral tablet (3 sources) Corticosteroid Start: 06-04-2022 methylPREDNISolone 4 MG as directed Orally Once a day for 6 days May, Active nitrofurantoin, macrocrystals 25 mg / nitrofurantoin, monohydrate 75 mg oral capsule (9 sources) Nitrofuran Antibacterial Start: 10-21-2023 take 1 capsule by mouth twice daily Macrobid 100 mg Cap 100 mg = 1 cap(s), Oral, BID, # 30 caplet(s), Refills(s) 0, Pharmacy: [facility]/pharmacy #[id number], 161, cm, 09/17/23 12:54:00 EST, Height/Length Dosing, 56, kg, 09/17/23 12:54:00 EST, Weight Dosing Start Date: 10/21/23 Status: Ordered Start: 09-17-2023 End: 11-16-2023 take 1 capsule by mouth once daily Macrobid 100 mg Cap 100 mg = 1 cap(s), Oral, Daily, X 30 day(s), # 30 cap(s), Refills(s) 1, Pharmacy: [facility]/pharmacy #[id number], 161, cm, 09/17/23 12:54:00 EST, Height/Length Dosing, 56, kg, 09/17/23 12:54:00 EST, Weight Dosing Start Date: 09/17/23 Stop Date: 11/16/23 Status: Ordered Start: 08-23-2023 take 1 capsule by [facility] twice daily Macrobid 100 mg Cap 100 mg = 1 cap(s), Oral, BID, # 30 caplet(s), Refills(s) 0, Pharmacy: [facility]/pharmacy #[id number], 161, cm, 06/07/23 10:48:00 EDT, Height/Length Dosing, 56, kg, 05/20/23 13:47:00 EDT, Weight Dosing Start Date: 08/23/23 Status: Ordered Start: 06-11-2023 End: 08-17-2023 take 1 capsule by mouth once daily Macrobid 100 mg Cap 100 mg = 1 cap(s), Oral, Daily, Patient is to take 1 capsule twice daily for a week and then 1 capsule daily until gone, X 67 day(s), # 74 cap(s), Refills(s) 0, [id number], 161, cm, 06/07/23 10:48:00 EDT, Height/Length Dosing, 56, kg, 05/20/23 13:47:00 EDT, Weight Dosing Start Date: 06/11/23 Stop Date: 08/17/23 Status: Ordered take 1 capsule by [facility] every twelve hours Macrobid 100 MG 1 capsule with food Orally every 12 hrs Active predniSONE 10 mg oral tablet (20 sources) Start: 05-04-2021 predniSONE 10 MG 40 mg qd x 4 then 20 mg qd x 4 then 10 mg qd x 4 then stop Orally Once a day for 12 days Apr, Active Start: 06-03-2018 End: 04-20-2019 take 2 tablets by mouth once daily at mealtime Prednisone 20 mg Tablet Discontinued 40 MG PO Daily 8 June 03, 2018 12:00am April 20, 2019 1:54pm administer with food or milk Start: 06-03-2018 End: 04-20-2019 take 40 mg by mouth once daily at mealtime Prednisone Discontinued 40 MG PO Daily 8 June 03, 2018 12:00am April 20, 2019 1:54pm administer with food or milk prednisone 10 mg as directed Orally as directed Active purified protein derivative of tuberculin 50 unt/ml injectable solution (2 sources) Tuberculosis Skin Test, Skin Test Antigen Aplisol 5 UNIT/0.1ML as directed Intradermal Active Trelegy Ellipta 200 mcg-62.5 mcg-25 mcg/inh inhalation powder (18 sources) Start: 05-20-2023 Trelegy Ellipt a 200 mcg-62.5 mcg-25 mcg/inh inhalation powder Refill(s) 0 Start Date: 05/20/23 Status: Ordered Start: 04-19-2023 Trelegy Ellipt a 200 mcg-62.5 mcg-25 mcg/inh inhalation powder Refill(s) 0 Start Date: 04/19/23 Status: Ordered Trelegy Ellipta 200-62.5-25 MCG/ACT (1 source) Start: 06-18-2022 take 1 puff(s) by inhalation once daily Trelegy Ellipta 200-62.5-25 MCG/ACT 1 puff Inhalation Once a day for 90 days Jun, Active trelegy ellipta 200-62.5-25 mcg/act aerosol powder breath activated (4 sources) Start: 06-18-2022 take 1 puff(s) by inhalation once daily Trelegy Ellipta 200-62.5-25 MCG/ACT 1 puff Inhalation Once a day for 90 days Jun, Active vitamin b12 1 mg oral tablet (8 sources) Vitamin B12 Start: 10-21-2024 take 1 tablet by mouth once daily Cyanocobalamin (Vitamin B-12) 1,000 mcg tablet Active 1000 MCG PO Daily October 21, 2024 12:00am Start: 07-26-2024 End: 10-21-2024 Cyanocobalamin (Vitamin B-12 ) 1,000 mcg/mL kit Discontinued 100 MCG SUBCUT .Qweekly 09 03July 26, 2024 1:00am October 21, 2024 3:01pm Vitamin D3 1000 UNIT (20 sources) take 2 capsules by mouth once da dipak Vitamin D3 1000 UNIT 2 capsule Orally Once a day for 30 day(s) Active Completed/Discontinued Medications Medication Drug Class(es) Dates Sig (Normalized) Sig (Original) [id number] 200 actuat albuterol 0.09 mg/actuat metered dose inhaler (20 sources) beta2-Adrenergic Agonist Start: 12-23-2023 End: 07-22-2024 take 1 puff(s) by inhalation once daily as needed Albuterol Sulfate (Ventolin Hfa) 90 mcg/actuation HFA aerosol inhaler Discontinued 2 PUFF INHALATION Daily as needed for SOB December 23, 2023 12:00am July 22, 2024 12:15pm Start: 06-02-2018 take 1 puff(s) by in halation every four to six hours Albuterol Sulfate (Proair Hfa) 90 mcg/actuation Hfa Aerosol Inhaler Active 1 - 2 PUFF INHALATION EVERY 4-6 HOURS June 02, 2018 12:00am take 2 puff(s) by in halation every four hours as needed Albuterol Sulfate HFA 108 (90 Base) MCG/ACT 2 puffs as needed Inhalation every 4 hrs as needed Active take 2 puff(s) by in halation every four hours as needed Albuterol Sulfate HFA 108 (90 Base) MCG/ACT 2 puffs as needed Inhalation every 4 hrs as needed Active take 2 puff(s) by in halation every four hours as needed Albuterol Sulfate HFA 108 (90 Base) MCG/ACT 2 puffs as needed Inhalation every 4 hrs as needed Active alendronic acid 70 mg oral tablet (20 sources) Bisphosphonate Start: 02-18-2024 take 1 tablet by mouth every week alendronate 70 mg Tab TAKE 1 TABLET BY MOUTH ONCE A WEEK Start Date: 02/18/24 Status: Ordered Start: 01-07-2024 End: 10-27-2024 take 1 tablet by mouth every week Alendronate 70 mg tablet Discontinued 0 .ROUTE .COMPLEX April 02, 2024 7:05am October 27, 2024 7:44am TAKE 1 TABLET BY MOUTH ONCE EVERY WEEK Start: 12-10-2023 End: 01-07-2024 take 1 tablet by mouth every week Alendronate (Fosamax) 70 mg tablet Discontinued 70 MG PO every week 01 01December 17, 2023 8:01January 07, 2024 8:49am apixaban 5 mg oral tablet (20 sources) Factor Xa Inhibitor Start: 04-12-2023 End: 12-10-2023 take 1 tablet by mouth twice daily Apixaban (Eliquis) 5 mg Tablet Discontinued 5 MG PO Twice daily April 12, 2023 12:00am December 10, 2023 10:43am cefdinir 300 mg oral capsule (20 sources) Cephalosporin Antibacterial Start: 04-12-2023 End: 05-17-2023 take 1 capsule by mouth twice daily Cefdinir 300 mg Capsule Discontinued 300 MG PO Twice daily April 12, 2023 12:00am May 17, 2023 3:24pm cephalexin 500 mg oral capsule (2 sources) Cephalosporin Antibacterial Start: 05-20-2023 End: 05-22-2023 take 1 tablet by mouth once daily Keflex 500 mg Cap 500 mg = 1 cap(s), Oral, Daily, take one tab day before procedure, take one tab day of procedure after procedure, X 2 day(s), # 2 cap(s), Refills(s) 0, Pharmacy: [facility]/pharmacy #[id number], 161, cm, 05/20/23 13:47:00 EDT, Height/Length Dosing, 56, kg, 05/20/23 13:47:00 EDT, Weight Dosing Start Date: 05/20/23 Stop Date: 05/22/23 Status: Ordered docusate sodium 100 mg oral capsule (19 sources) Start: 04-01-2024 End: 12-01-2024 take 1 capsule by mouth once daily Docusate Sodium 100 mg capsule Discontinued 100 MG PO Daily April 02, 2024 7:05am June 16, 2024 4:17pm Fluticasone-Umecl idin-Vilanter (18 sources) Anticholinergic, Corticosteroid, beta2-Adrenergic Agonist Start: 08-24-2022 End: 04-12-2023 Fluticasone-Umecli din-Vilanter (Trelegy Ellipta) 100-62.5-25 mcg Blister With Device Discontinued 1 INH INHALATION Q24H August 24, 2022 12:00am April 12, 2023 12:23pm Start: 08-24-2022 End: 04-12-2023 Dpntifkcnnl-Geiajdrxb-Ewshjk er (Trelegy Ellipta) 100-62.5-25 mcg Blister With Device Discontinued 1 INH INHALATION Q24H August 24, 2022 1:00am April 12, 2023 1:23pm Start: 08-24-2022 Fluticasone-Um eclidin-Vilanter (Trelegy Ellipta) 100-62.5-25 mcg Blister With Device Active 1 INH INHALATION Q24H August 24, 2022 12:00am gentamicin 0.001 mg/mg topical ointment (19 sources) Start: 06-13-2022 End: 04-12-2023 Gentamicin 0.1 % ointment Discontinued 1 APPLIC TOPICAL Daily June 13, 2022 1:00am April 12, 2023 1:23pm thin layer to right groin/kiarra-area ibuprofen 200 mg oral tablet (20 sources) Nonsteroidal Anti-inflammatory Drug Start: 05-17-2022 End: 04-12-2023 Ibuprofen 200 mg Tablet Discontinued 200 MG PO As Directed May 17, 2022 12:00am April 12, 2023 1:23pm 3 tablets orally prn levoFLOXacin 750 mg oral tablet (19 sources) Quinolone Antimicrobial Start: 04-12-2023 End: 05-17-2023 take 1 tablet by mouth once daily Levofloxacin 750 mg tablet Discontinued 750 MG PO Daily 5 5 April 12, 2023 12:00am May 17, 2023 3:25pm lidocaine 0.05 mg/mg medicated patch (10 sources) Antiarrhythmic, Amide Local Anesthetic Start: 12-10-2023 End: 02-27-2024 apply 1 dose topically once daily Lidocaine (Lidoderm) 5 % adhesive patch,medicated Discontinued 1 PATCH TOPICAL Daily December 10, 2023 12:00am February 27, 2024 2:38pm leave on most painful area for up to 12 hrs loratadine 10 mg oral tablet (20 sources) Start: 04-12-2023 End: 05-17-2023 take 1 tablet by mouth once daily Loratadine (Claritin) 10 mg Tablet Discontinued 10 MG PO Daily April 12, 2023 12:00am May 17, 2023 3:25pm Tiotropium-Olodaterol (20 sources) Anticholinergic, beta2-Adrenergic Agonist Start: 06-02-2018 End: 08-24-2022 Tiotropium-Olodaterol (Stiolto Respimat) 2.5-2.5 mcg/actuation Mist Discontinued 2 PUFF INHALATION Every morning June 02, 2018 12:00am August 24, 2022 12:14pm Start: 06-02-2018 End: 08-24-2022 Tiotropium-Olodaterol (Stiol to Respimat) 2.5-2.5 mcg/actuation Mist Discontinued 2 PUFF INHALATION Every morning June 01, 2018 11:00pm August 24, 2022 11:14am Start: 06-02-2018 Tiotropium-Olo daterol (Stiolto Respimat) 2.5-2.5 mcg/actuation Mist Active 2 PUFF INHALATION Every morning June 01, 2018 11:00pm Start: 06-02-2018 Tiotropium-Olo daterol (Stiolto Respimat) 2.5-2.5 mcg/actuation Mist Active 2 PUFF INHALATION Every morning June 02, 2018 12:00am Start: 06-02-2018 Tiotropium-Olo daterol (Stiolto Respimat) 2.5-2.5 mcg/actuation Mist Active 2 PUFF INHALATION Every morning June 02, 2018 12:00am Start: 04-04-2017 Stiolto Respim at 2.5-2.5 MCG/ACT 2 puffs Inhalation Once a day Mar, Active ondansetron 8 mg disintegrating oral tablet (20 sources) Serotonin-3 Receptor Antagonist Start: 05-17-2023 End: 12-10-2023 take 1 tablet by mouth every eight hours as needed for nausea Ondansetron 8 mg Tablet,Disintegrating Discontinued 8 MG PO Q8H as needed for Nausea May 17, 2023 3:56pm December 10, 2023 10:44am oxyCODONE hydrochloride 5 mg oral tablet (20 sources) Opioid Agonist Start: 12-10-2023 End: 02-27-2024 take 1 tablet by mouth every eight hours as needed Oxycodone 5 mg tablet Discontinued 5 MG PO Every 8 hours as needed December 10, 2023 12:00am February 27, 2024 2:38pm Start: 04-12-2023 End: 05-17-2023 take 1 tablet by mouth every six hours as needed for pain Oxycodone 5 mg Tablet Discontinued 5 MG PO Q6H as needed for Pain April 12, 2023 12:00am May 17, 2023 3:25pm polyethylene glycol 3350 23750 mg powder for oral solution (20 sources) Osmotic Laxative Start: 04-12-2023 End: 05-17-2023 Polyethylene Glycol 3350 (Miralax) 17 gram Powder In Packet Discontinued 17 GM PO Daily April 12, 2023 12:00am May 17, 2023 3:25pm MiraLax Active promethazine hydrochloride 25 mg oral tablet (20 sources) Phenothiazine Start: 04-12-2023 End: 05-17-2023 take 1 tablet by mouth once daily as needed for nausea Promethazine (Phenergan) 25 mg Tablet Discontinued 25 MG PO Daily as needed for Nausea April 12, 2023 12:00am May 17, 2023 3:25pm take 1 tablet by kenia th every twenty-four hours as needed Promethazine HCl 25 MG 1 tablet as neede d Orally every 24 hrs Not-Taking take 1 tablet by mouth every twe lve hours Promethazine HCl 25 MG 1 tablet as needed Orally every 12 hrs Active sertraline 25 mg oral tablet (20 sources) Serotonin Reuptake Inhibitor Start: 12-06-2023 End: 12-06-2023 take 1 tablet by mouth once daily Sertraline 25 mg tablet Discontinued 0 .ROUTE .COMPLEX 90 December 06, 2023 7:31am December 06, 2023 7:33am TAKE 1 TABLET BY MOUTH EVERY DAY FOR 30 DAYS Start: 05-27-2023 End: 06-16-2024 take 1 tablet by mouth once daily Sertraline 25 mg tablet Discontinued 25 MG PO Daily December 06, 2023 12:00am December 06, 2023 7:31am FreeTextSi tablet Orally Once a day; Note: Source Status: Taking; Refills: 4; Provider: Gee Fonseca Problems Active Problems Problem Classification Problem Date Documented Da te Episodic/Chronic Abdominal pain (13 sources) Vaginal pain; Translations: [Pelvic and perineal pain] Onset: 05-20-2023 05-20-2023 Episodic Anxiety disorders (20 sources) Anxiety; Translations: [Anxiety disorder, unspecified] Chronic Aspiration pneumonitis; food/vomitus (15 sources) Aspiration pneumonia; Translations: [Pneumonitis due to inhalation of food and vomit] 04-12-2023 Episodic Calculus of urinary tract (13 sources) Kidney stone; Translations: [Calculus of kidney] Onset: 05-20-2023 05-20-2023 Episodic Cardiac dysrhythmias (20 sources) Irregular heart beat; Translations: [Cardiac arrhythmia, unspecified] Chronic Chronic obstructive pulmonary disease and bronchiectasis (20 sources) Chronic obstructive lung disease; Translations: [Chronic obstructive pulmonary disease, unspecified] Onset: 05-30-2021 Resolved: 01-12-2022 Chronic Deficiency and other anemia (6 sources) Hemoglobin low; Translations: [Anemia, unspecified] 03-05-2024 Episodic Disorders of lipid metabolism (20 sources) Hyperlipidemia; Translations: [Hyperlipemia] Onset: 02-27-2024 Chronic Essential hypertension (20 sources) Essential hypertension; Translations: [Essential (primary) hypertension] Onset: 02-27-2024 Chronic Fever of unknown origin (1 source) Fever, unspecified Episodic Fracture of upper limb (2 sources) Other displaced fracture of upper end of right humerus, initial encounter for closed fracture; Translations: [Other displaced fracture of upper end of right humerus, sequela] Episodic Genitourinary symptoms and ill-defined conditions (20 sources) Gross hematuria; Translations: [Tra hematuria] Onset: 05-20-2023 Episodic Mood disorders (17 sources) Moderate major depression ; Translations: [Major depressive disorder, single episode, moderate] 02-24-2024 Chronic Nausea and vomiting (6 sources) Nausea; Translations: [Nausea] Episodic Neoplasms of unspecified nature or uncertain behavior (9 sources) Monoclonal gammopathy of uncertain significance; Translations: [Monoclonal gammopathy] Onset: 01-08-2025 10-21-2024 Chronic Nutritional deficiencies (20 sources) Vitamin D deficiency; Translations: [Vitamin D deficiency, unspecified] Chronic Open wounds of head; neck; and trunk (15 sources) Unspecified open wound of abdominal wall, unspecified quadrant without penetration into peritoneal cavity, initial encounter; Translations: [Wound pain ] Episodic Osteoporosis (14 sources) Osteoporosis; Translations: [Age-related osteoporosis without current pathological fracture] 12-10-2023 Chronic Other aftercare (10 sources) Post-discharge follow-up; Translations: [Encounter for follow-up examination after completed treatment for conditions other than malignant neoplasm] 12-10-2023 Episodic Other aftercare (4 sources) Encounter for follow-up examination after completed treatment for conditions other than malignant neoplasm; Translations: [Other follow-up examination] 12-10-2023 Episodic Other diseases of bladder and urethra (4 sources) Urethral stricture; Translations: [Unspecified urethral stricture, female] Onset: 12-16-2023 Episodic Other diseases of kidney and ureters (11 sources) Hydronephrosis; Translations: [Unspecified hydronephrosis] Onset: 05-20-2023 05-20-2023 Episodic Other fractures (1 source) Fracture of superior rim of right pubis, initial encounter for closed fracture Episodic Other fractures (1 source) Other specified fracture of right pubis, initial encounter for closed fracture Episodic Other fractures (1 source) Unspecified fracture of sacrum, initial encounter for closed fracture Episodic Other fractures (10 sources) Fracture of multiple ribs ; Translations: [Multiple fractures of ribs, unspecified side, initial encounter for closed fracture] 12-10-2023 Episodic Other fractures (10 sources) Fracture of pelvis; Translations: [Fracture of unspecified parts of lumbosacral spine and pelvis, initial encounter for closed fracture] 12-10-2023 Episodic Other fractures (4 sources) Fracture of unspecified parts of lumbosacral spine and pelvis, initial encounter for closed fracture; Translations: [Closed unspecified fracture of pelvis] 12-10-2023 Episodic Other gastrointestinal disorders (20 sources) Stool DNA-based colorectal cancer screening positive; Translations: [Other fecal abnormalities] 04-22-2019 Episodic Other gastrointestinal disorders (10 sources) Dysphagia; Translations: [Dysphagia, unspecified] Episodic Other gastrointestinal disorders (1 source) Dysphagia, unspecified Episodic Other hematologic conditions (6 sources) MCV - low; Translations: [Other abnormality of red blood cells] 03-19-2024 Episodic Other inflammatory condition of skin (19 sources) Psoriasis; Translations: [Psoriasis, unspecified] 04-19-2023 Chronic Other inflammatory condition of skin (4 sources) Psoriasis, unspecified; Translations: [Other psoriasis] 02-27-2024 Chronic Other injuries and conditions due to external causes (9 sources) Wound pain ; Translations: [Other injury of unspecified body region, initial encounter] 08-24-2022 Episodic Other lower respiratory disease (3 sources) Shortness of breath Episodic Other lower respiratory disease (1 source) Other forms of dyspnea Episodic Other lower respiratory disease (1 source) Other nonspecific abnormal finding of lung field Episodic Other lower respiratory disease (19 sources) Nodule of lung; Translations: [Solitary pulmonary nodule] 05-19-2022 Episodic Other lower respiratory disease (5 sources) Solitary pulmonary nodule; Translations: [Solitary pulmonary nodule] 05-18-2022 Episodic Other nervous system disorders (20 sources) Peripheral nerve disease ; Translations: [Polyneuropathy, unspecified] 07-22-2024 Chronic Other nervous system disorders (8 sources) Polyneuropathy, unspecified; Translations: [Unspecified hereditary and idiopathic peripheral neuropathy] Onset: 07-22-2024 Chronic Other non-traumatic joint disorders (1 source) Pain in right shoulder Episodic Other non-traumatic joint disorders (1 source) Pain in right elbow Episodic Other nutritional; endocrine; and metabolic disorders (20 sources) Hyperproteinemia; 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, not elsewhere classified] Chronic Other nutritional; endocrine; and metabolic disorders (2 sources) Other disorders of plasma-protein metabolism, not elsewhere classified Chronic Other nutritional; endocrine; and metabolic disorders (6 sources) Loss of appetite; Translations: [Anorexia] Episodic Other nutritional; endocrine; and metabolic disorders (5 sources) Weight decreased; Translations: [Abnormal weight loss] Episodic Other nutritional; endocrine; and metabolic disorders (1 source) Anorexia Episodic Other screening for suspected conditions (not mental disorders or infectious disease) (5 sources) Abnormal results of kidney function studies; Translations: [Encounter for screening mammogram for malignant neoplasm of breast] Onset: 08-10-2021 Resolved: 08-10-2021 Episodic Pulmonary heart disease (18 sources) Other pulmonary embolism without acute cor pulmonale; Translations: [H/O: pulmonary embolus] Episodic Residual codes; unclassified (15 sources) Memory impairment; Translations: [Other amnesia] Episodic Residual codes; unclassified (1 source) Other amnesia Episodic Skin and subcutaneous tissue infections (20 sources) Abscess of perineum; Translations: [Cutaneous abscess of perineum] 06-27-2022 Episodic Spondylosis; intervertebral disc disorders; other back problems (1 source) Cervicalgia Episodic Superficial injury; contusion (14 sources) Contusion of rib; Translations: [Contusion of unspecified front wall of thorax, initial encounter] 12-10-2023 Episodic Urinary tract infections (15 sources) Urinary tract infectious disease; Translations: [Urinary tract infection, site not specified] 04-12-2023 Episodic Past or Other Problems Problem Classification Problem Date Documented Da te Episodic/Chronic Diabetes mellitus without complication (20 sources) Prediabetes; Translations: [Prediabetes] Onset: 02-27-2024 Episodic Malaise and fatigue (2 sources) Fatigue; Translations: [Other fatigue] Episodic Nonspecific chest pain (2 sources) Tight chest; Translations: [Other chest pain] Episodic Nutritional deficiencies (10 sources) Cobalamin deficiency; Translations: [Deficiency of other specified B group vitamins] Onset: 10-21-2024 07-26-2024 Episodic Unclassified (1 source) Post COVID-19 condition, 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 01/06/2025 1:11 PM Dictation Location: [place] [address] Transcribed By: [facility] 01/06/25 1311 Dictated By: Angelica Díaz MD 01/06/25 1247 Signed By: 01/06/25 1311 Normal [facility] Alanine aminotransferase [En zymatic activity/volume] in Serum or PlasmaOrdered By: Pete Erazo on 12-17-2024 ALT [Catalytic activity/Vol] Alanine aminotransferase [Enzymatic activity/volume] in Serum or Plasma [facility] Albumin [Mass/volume] in Ser um or Plasma by Bromocresol green (BCG) dye binding methoOrdered By: Pete Erazo on 12-17-2024 Albumin BCG dye [Mass/Vol] Albumin [Mass/volume] in Serum or Plasma by Bromocresol green (BCG) dye binding metho 3.5-5.7 [facility] Alkaline phosphatase [Enzyma tic activity/volume] in Serum or PlasmaOrdered By: Pete Erazo on 12-17-2024 ALP [Catalytic activity/Vol] Alkaline phosphatase [Enzymatic activity/volume] in Serum or Plasma High 34-104 [facility] Aspartate aminotransferase [ Enzymatic activity/volume] in Serum or PlasmaOrdered By: Pete Erazo on 12-17-2024 AST [Catalytic activity/Vol] Aspartate aminotransferase [Enzymatic activity/volume] in Serum or Plasma 13-39 [facility] Basophils Auto (Bld) [#/Vol] Ordered By: Pete Erazo on 12-17-2024 Basophils (Bld) [#/Vol] Automated basophil count 0.0-0.2 [facility] Basophils/100 WBC Auto (Bld) Ordered By: Pete Erazo on 12-17-2024 Basophils/100 WBC (Bld) Automated basophil % . [facility] Bilirubin.total [Mass/volume ] in Serum or PlasmaOrdered By: Pete Erazo on 12-17-2024 Bilirubin [Mass/Vol] Bilirubin.total [Mass/volume] in Serum or Plasma 0.3-1.0 [facility] CBC W Auto Differential pane l (Bld)on 12-17-2024 Basophils (Bld) [#/Vol] 0 10*3/uL 0.0 - 0.2 10*3/uL [facility] Basophils/100 WBC Manual cnt (Syn fld) 0.5 % . [facility] Eosinophils (Bld) [#/Vol] 0.2 10*3/uL 0.0 - 0.45 10*3/uL [facility] Eosinophils/100 WBC Manual cnt (Syn fld) 2.8 % . [facility] Erythrocyte distribution width (RBC) [Ratio] 13.8 % 11.9 - 15.3 % [facility] Hematocrit (Bld) [Volume fraction] 38.9 % 34.0 - 46.4 % [facility] Hemoglobin (Bld) [Mass/Vol] 12.8 g/dL 11.8 - 15.4 g/dL [facility] Lymphocytes (Bld) [#/Vol] 1.3 10*3/uL 1.00 - 4.8 10*3/uL [facility] Lymphocytes/100 WBC Manual cnt (Syn fld) 16 % . [facility] MCH (RBC) [Entitic mass] 29.9 pg 24.7 - 34.3 pg [facility] MCHC (RBC) [Mass/Vol] 32.8 g/dL 32.0 - 35.0 g/dL [facility] MCV (RBC) [Entitic vol] 91.2 fL 80 - 100 fL [facility] Monocytes (Bld) [#/Vol] 0.7 10*3/uL 0.0 - 0.8 10*3/uL [facility] Monocytes+Macrophages/1 00 WBC Manual cnt (Syn fld) 8.4 % . [facility] Neutrophils (Bld) [#/Vol] 5.8 10*3/uL 1.8 - 7.7 10*3/uL [facility] Neutrophils/100 WBC Manual cnt (Syn fld) 72.3 % . [facility] NRBC 0 /100{WBC} 0 - 0.5 /100{WBC} [facility] Platelet mean volume (Bld) [Entitic vol] 8 fL 6.3 - 10.7 fL [facility] Platelets (Bld) [#/Vol] 282 10*3/uL 150 - 450 10*3/uL [facility] RBC LM.HPF (Urine sed) [#/Area] 4.27 10*6/uL 3.60 - 5.00 10*6/uL [facility] WBC (Bld) [#/Vol] 8 10*3/uL 3.8 - 11.6 10*3/uL [facility] WBC LM.HPF (Urine sed) [#/Area] 8 10*3/uL 3.8 - 11.6 10*3/uL [facility] Calcium [Mass/volume] in Ser um or PlasmaOrdered By: Pete Erazo on 12-17-2024 Calcium [Mass/Vol] Calcium [Mass/volume ] in Serum or Plasma 8.6-10.3 [facility] Carbon dioxide, total [Moles /volume] in Serum or PlasmaOrdered By: Pete Erazo on 12-17-2024 CO2 [Moles/Vol] Carbon dioxide, tota l [Moles/volume] in Serum or Plasma 21.0-31.0 [facility] Chloride [Moles/volume] in S asiya or PlasmaOrdered By: Pete Erazo on 12-17-2024 Chloride [Moles/Vol] Chloride [Moles/vol ume] in Serum or Plasma 98-107 [facility] Complete Blood Count Auto Di ffon 12-17-2024 Basophils (Bld) [#/Vol] 0.0 10*3/uL Normal 0.0-0.2 [facility] Comment on above: Result Comment: PERF ORMED BY: [place] [address] PATHOLOGIST PLASTICS PATTERNMAKER KATELYNN HAMILTON M.D. Performed By: #### K APPA, SULAIMAN SERUM, SPE #### [facility] , #### CMP #### [address] Basophils/100 WBC (Bld) 0.5 % Normal . T jessika [facility] Comment on above: Performed By: #### K APPA, SULAIMAN SERUM, SPE #### [facility] , #### CMP #### [address] Eosinophils (Bld) [#/Vol] 0.2 10*3/uL Normal 0.0-0.45 [facility] Comment on above: Performed By: #### K APPA, SULAIMAN SERUM, SPE #### [facility] , #### CMP #### [address] Eosinophils/100 WBC (Bld) 2.8 % Normal . [facility] Comment on above: Performed By: #### K APPA, SULAIMAN SERUM, SPE #### [facility] , #### CMP #### [address] Erythrocyte distribution width (RBC) [Ratio] 13.8 % Normal 11.9-15.3 [facility] Comment on above: Performed By: #### K APPA, SULAIMAN SERUM, SPE #### [facility] , #### CMP #### [address] Hematocrit (Bld) [Volume fraction] 38.9 % Normal 34.0-46.4 [facility] Comment on above: Performed By: #### K APPA, SULAIMAN SERUM, SPE #### [facility] , #### CMP #### [address] Hemoglobin (Bld) [Mass/Vol] 12.8 g/dL Normal 11.8-15.4 [facility] Comment on above: Performed By: #### K APPA, SULAIMAN SERUM, SPE #### [facility] , #### CMP #### [address] Lymphocytes (Bld) [#/Vol] 1.3 10*3/uL Normal 1.00-4.8 [facility] Comment on above: Performed By: #### K APPA, SULAIMAN SERUM, SPE #### [facility] , #### CMP #### [address] Lymphocytes/100 WBC (Bld) 16.0 % Normal . [facility] Comment on above: Performed By: #### K APPA, SULAIMAN SERUM, SPE #### [facility] , #### CMP #### [address] MCH (RBC) [Entitic mass] 29.9 pg Normal 24.7-34.3 [facility] Comment on above: Performed By: #### K APPA, SULAIMAN SERUM, SPE #### [facility] , #### CMP #### [address] MCV (RBC) [Entitic vol] 91.2 fL Normal 80-100 [facility] Comment on above: Performed By: #### K APPA, SULAIMAN SERUM, SPE #### [facility] , #### CMP #### [address] Mean Corpuscular HGB Conc 32.8 g/dL Normal 32.0-35.0 [facility] Comment on above: Performed By: #### K APPA, SULAIMAN SERUM, SPE #### [facility] , #### CMP #### [place] [address] [place] Monocytes (Bld) [#/Vol] 0.7 10*3/uL Normal 0.0-0.8 [facility] Comment on above: Performed By: #### K APPA, SULAIMAN SERUM, SPE #### [facility] , #### CMP #### [address] Monocytes/100 WBC (Bld) 8.4 % Normal . [facility] Comment on above: Performed By: #### K APPA, SULAIMAN SERUM, SPE #### [facility] , #### CMP #### [place] [address] [place] Neutrophils (Bld) [#/Vol] 5.8 10*3/uL Normal 1.8-7.7 [facility] Comment on above: Performed By: #### K APPA, SULAIMAN SERUM, SPE #### [facility] , #### CMP #### [place] [address] [place] Neutrophils/100 WBC (Bld) 72.3 % Normal . [facility] Comment on above: Performed By: #### K APPA, SULAIMAN SERUM, SPE #### [facility] , #### CMP #### [place] [address] [place] NRBC% 0.0 /100{WBC} Normal 0-0.5 [facility] Comment on above: Performed By: #### K APPA, SULAIMAN SERUM, SPE #### [facility] , #### CMP #### [address] Platelet mean volume (Bld) [Entitic vol] 8.0 fL Normal 6.3-10.[address] [facility] Comment on above: Performed By: #### K APPA, SULAIMAN SERUM, SPE #### [facility] , #### CMP #### [address] Platelets (Bld) [#/Vol] 282 10*3/uL Normal 150-450 [facility] Comment on above: Performed By: #### K APPA, SULAIMAN SERUM, SPE #### [facility] , #### CMP #### [address] RBC (Bld) [#/Vol] 4.27 10*6/uL Normal 3.60-5.00 [facility] Comment on above: Performed By: #### K APPA, SULAIMAN SERUM, SPE #### [facility] , #### CMP #### [address] WBC (Bld) [#/Vol] 8.0 10*3/uL Normal 3.8-11.6 [facility] Comment on above: Performed By: #### K APPA, SULAIMAN SERUM, SPE #### [facility] , #### CMP #### [address] Comprehensive Metabolic Pane norma 12-17-2024 Albumin [Mass/Vol] 3.7 g/dL Normal 3.5-5.7 [facility] Comment on above: Performed By: #### K APPA, SULAIMAN SERUM, SPE #### [facility] , #### CMP #### [facility] [address] [place] [address] Albumin/Globulin [Mass ratio] 0.9 {ratio} Normal [facility] Comment on above: Performed By: #### K APPA, SULAIMAN SERUM, SPE #### [facility] , #### CMP #### [address] ALP [Catalytic activity/Vol] 106 U/L High 34-104 [facility] Comment on above: Result Comment: PERF ORMED BY: [place] [address] PATHOLOGIST PLASTICS PATTERNMAKER KATELYNN HAMILTON M.D. Performed By: #### K APPA, SULAIMAN SERUM, SPE #### [facility] , #### CMP #### [address] ALT [Catalytic activity/Vol] 12 U/L Normal 7-52 [facility] Comment on above: Performed By: #### K APPA, SULAIMAN SERUM, SPE #### [facility] , #### CMP #### [address] Anion gap [Moles/Vol] 8.7 mmol/L Normal 6.0-15.0 [facility] Comment on above: Performed By: #### K APPA, SULAIMAN SERUM, SPE #### [facility] , #### CMP #### [address] AST [Catalytic activity/Vol] 16 U/L Normal 13-39 [facility] Comment on above: Performed By: #### K APPA, SULAIMAN SERUM, SPE #### [facility] , #### CMP #### [address] Bilirubin [Mass/Vol] 0.3 mg/dL Normal 0.3-1.0 [facility] Comment on above: Performed By: #### K APPA, SULAIMAN SERUM, SPE #### [facility] , #### CMP #### [address] Calcium [Mass/Vol] 9.3 mg/dL Normal 8.6-10.3 [facility] Comment on above: Performed By: #### K APPA, SULAIMAN SERUM, SPE #### [facility] , #### CMP #### [address] Chloride [Moles/Vol] 106 mmol/L Normal 98-107 [facility] Comment on above: Performed By: #### K APPA, SULAIMAN SERUM, SPE #### [facility] , #### CMP #### [address] CO2 [Moles/Vol] 29.3 mmol/L Normal 21.0-31.0 [facility] Comment on above: Performed By: #### K APPA, SULAIMAN SERUM, SPE #### [facility] , #### CMP #### [address] Creatinine [Mass/Vol] 0.86 mg/dL Normal 0.60-1.20 [facility] Comment on above: Performed By: #### K APPA, SULAIMAN SERUM, SPE #### [facility] , #### CMP #### [place] [address] [place] GFR/1.73 sq M.predicted MDRD (S/P/Bld) [Vol rate/Area] mL/min/{1.73_m2} Normal [facility] Comment on above: Performed By: #### K APPA, SULAIMAN SERUM, SPE #### [facility] , #### CMP #### [place] [address] [place] Globulin (S) [Mass/Vol] 4.2 g/dL Normal T [facility] Comment on above: Performed By: #### K APPA, SULAIMAN SERUM, SPE #### [facility] , #### CMP #### [address] Glucose [Mass/Vol] 93 mg/dL Normal 70-100 [facility] Comment on above: Result Comment: [facility] Glucose Reference Range is dependent on time and content of last meal. Glucose of more than 200 mg/dL in a nonstressed, ambulatory subject supports the diagnosis of Diabetes Mellitus. ADA recommended reference range Performed By: #### K APPA, SULAIMAN SERUM, SPE #### [facility] , #### CMP #### [address] Potassium [Moles/Vol] 4.0 mmol/L Normal 3.5-5.1 [facility] Comment on above: Performed By: #### K APPA, SULAIMAN SERUM, SPE #### [facility] , #### CMP #### [place] [address] [place] Protein [Mass/Vol] 7.9 g/dL Normal 6.4-8.9 [facility] Comment on above: Performed By: #### K APPA, SULAIMAN SERUM, SPE #### [facility] , #### CMP #### [place] [address] [place] Sodium [Moles/Vol] 140 mmol/L Normal 136-145 [facility] Comment on above: Performed By: #### K APPA, SULAIMAN SERUM, SPE #### [facility] , #### CMP #### [place] [address] [place] Urea nitrogen [Mass/Vol] 22 mg/dL Normal 7-25 [facility] Comment on above: Performed By: #### K APPA, SULAIMAN SERUM, SPE #### [facility] , #### CMP #### [facility] [address] Comprehensive metabolic pane [facility] 12-17-2024 Albumin [Mass/Vol] 3.7 g/dL 3.5 - 5.7 g/dL [facility] Albumin/Globulin [Mass ratio] 0.9 {ratio} [facility] ALP [Catalytic activity/Vol] 106 U/L High 34 - 104 U/L [facility] ALT [Catalytic activity/Vol] 12 U/L 7 - 52 U/L [facility] Anion gap [Moles/Vol] 8.7 mmol/L 6.0 - 15.0 meq/L [facility] AST [Catalytic activity/Vol] 16 U/L 13 - 39 U/L [facility] Bilirubin [Mass/Vol] 0.3 mg/dL 0.3 - 1 .0 mg/dL [facility] Calcium [Mass/Vol] 9.3 mg/dL 8.6 - 10. 3 mg/dL [facility] Chloride [Moles/Vol] 106 mmol/L 98 - 10 7 mmol/L [facility] CO2 [Moles/Vol] 29.3 mmol/L 21.0 - 31.0 mmol/L [facility] Creatinine (U) [Mass/Vol] 0.86 mg/dL 0.60 - 1.20 mg/dL [facility] ESTIMATED GFR mL/Min [facility] Globulin (S) [Mass/Vol] 4.2 g/dL [facility] Glucose [Mass/Vol] 93 mg/dL 70 - 100 mg/dL [facility] Comment on above: Random Glucose Refer ence Range is dependent on time and content of last meal. Glucose of more than 200 mg/dL in a nonstressed, ambulatory subject supports the diagnosis of Diabetes Mellitus. ADA recommended reference range Interpretation and review of laboratory results [facility] Potassium [Moles/Vol] 4 mmol/L 3.5 - 5.1 mmol/L [facility] Protein [Mass/Vol] 7.9 g/dL 6.4 - 8.9 g/dL [facility] Sodium [Moles/Vol] 140 mmol/L 136 - 145 mmol/L [facility] Urea nitrogen [Mass/Vol] 22 mg/dL 7 - 25 mg/dL [facility] Creatinine [Mass/volume] in Serum or PlasmaOrdered By: Pete Erazo on 12-17-2024 Creatinine [Mass/Vol] Creatinine [Mass/v olume] in Serum or Plasma 0.60-1.20 [facility] Eosinophils Auto (Bld) [#/Vo l]Ordered By: Pete Erazo on 12-17-2024 Eosinophils (Bld) [#/Vol] Automated eosinophil count 0.0-0.45 [facility] Eosinophils/100 WBC Auto (Bl d)Ordered By: Pete Erazo on 12-17-2024 Eosinophils/100 WBC (Bld) Automated eosinophil % . [facility] Erythrocyte distribution wid th Auto (RBC) [Ratio]Ordered By: Pete Erazo on 12-17-2024 Erythrocyte distribution width (RBC) [Ratio] Erythrocyte distribution width [Ratio] by Automated count 11.9-15.3 [facility] Free K+L LT Chains, Qn, Son 12-17-2024 Free [place] Light Chains, S 86.1 mg/L High 3.3-19.4 [facility] Comment on above: Performed By: #### K APPA, SULAIMAN SERUM, SPE #### [facility] , #### CMP #### [facility] [address] [place] [address] Free [place] Light Chains, S 43.9 mg/L High 5.7-26.3 [facility] Comment on above: Performed By: #### K APPA, SULAIMAN SERUM, SPE #### [facility] , #### CMP #### [facility] [address] [place] [address] [place]/Lambda Ratio, S 1.96 High 0.26-1.65 [facility] Comment on above: Result Comment: Perf ormed at: CB - [facility] [address] [id number] Solid State Tester: Raghav Murphy PhD, Phone: [phone] PERFORMED BY: [place] [address] PATHOLOGIST PLASTICS PATTERNMAKER KATELYNN HAMILTON M.D. Performed By: #### K APPA, SULAIMAN SERUM, SPE #### [facility] , #### CMP #### [facility] [address] [place] [address] [place] Globulin Calc (S) [Mass/Vol] Ordered By: Pete Erazo on 12-17-2024 Globulin (S) [Mass/Vol] Serum globulin measurement by calculation (mass/volume) [facility] Glucose [Mass/volume] in Ser um or PlasmaOrdered By: Pete Erazo on 12-17-2024 Glucose [Mass/Vol] Glucose [Mass/volume ] in Serum or Plasma 70-100 [facility] Comment on above: ADA recommended refe rence rangeRandom Glucose Reference Range is dependent on time and content of last meal. Glucose of more than 200 mg/dL in a nonstressed, ambulatory subject supports the diagnosis of Diabetes Mellitus. Hematocrit Auto (Bld) [Volum e fraction]Ordered By: Pete Erazo on 12-17-2024 Hematocrit (Bld) [Volume fraction] Hematocrit [Volume Fraction] of Blood by Automated count 34.0-46.4 [facility] Hemoglobin [Mass/volume] in BloodOrdered By: Pete Erazo on 12-17-2024 Hemoglobin (Bld) [Mass/Vol] Hemoglobin [Mass/volume] in Blood 11.8-15.4 [facility] Immunofixation,Serumon 12-17 Immunofixation, Serum Comment Normal . [facility] Comment on above: Result Comment: No m onoclonality detected. Performed By: #### K APPA, SULAIMAN SERUM, SPE #### [facility] , #### CMP #### [facility] [address] [place] [address] [place] Immunoglobulin A, Serum 282 mg/dL Normal 64-422 [facility] Comment on above: Performed By: #### K APPA, SULAIMAN SERUM, SPE #### [facility] , #### CMP #### [facility] [address] [place] [id number] [place] Immunoglobulin G 2776 mg/dL High [id number] [facility] Comment on above: Performed By: #### K APPA, SULAIMAN SERUM, SPE #### [facility] , #### CMP #### [facility] [address] Immunoglobulin M, Serum 137 mg/dL Normal 26-217 [facility] Comment on above: Result Comment: Perf ormed at: CB - [facility] [place] [id number] Solid State Tester: Raghav Murphy PhD, Phone: [phone] Performed By: #### K APPA, SULAIMAN SERUM, SPE #### [facility] , #### CMP #### [facility] [address] Leukocytes [#/volume] correc tiffanie for nucleated erythrocytes in Blood by Automated counOrdered By: Pete Erazo on 12-17-2024 WBC corrected for nucl RBC Auto (Bld) [#/Vol] Leukocytes [#/volume] corrected for nucleated erythrocytes in Blood by Automated coun 3.8-11.6 [facility] Lymphocytes Auto (Bld) [#/Vo l]Ordered By: Pete Erazo on 12-17-2024 Lymphocytes (Bld) [#/Vol] Lymphocytes [#/volume] in Blood by Automated count 1.00-4.8 [facility] Lymphocytes/100 WBC Auto (Bl d)Ordered By: Pete Erazo on 12-17-2024 Lymphocytes/100 WBC (Bld) Lymphocytes/100 leukocytes in Blood by Automated count . [facility] MCH Auto (RBC) [Entitic mass ]Ordered By: Pete Erazo on 12-17-2024 MCH (RBC) [Entitic mass] MCH [Entitic mass] by Automated count 24.7-34.3 [facility] MCHC Auto (RBC) [Mass/Vol]Or dered By: Pete Erazo on 12-17-2024 MCHC (RBC) [Mass/Vol] MCHC [Mass/volume] by Automated count 32.0-35.0 [facility] MCV Auto (RBC) [Entitic vol] Ordered By: Pete Erazo on 12-17-2024 MCV (RBC) [Entitic vol] MCV [Entitic vol ume] by Automated count 80-100 [facility] Monocytes Auto (Bld) [#/Vol] Ordered By: Pete Erazo on 12-17-2024 Monocytes (Bld) [#/Vol] Automated blood monocyte count 0.0-0.8 [facility] Monocytes/100 WBC Auto (Bld) Ordered By: Pete Erazo on 12-17-2024 Monocytes/100 WBC (Bld) Automated monocyte % . [facility] Neutrophils Auto (Bld) [#/Vo l]Ordered By: Pete Erazo on 12-17-2024 Neutrophils (Bld) [#/Vol] Neutrophils [#/volume] in Blood by Automated count 1.8-7.7 [facility] Neutrophils/100 WBC Auto (Bl d)Ordered By: Pete Erazo on 12-17-2024 Neutrophils/100 WBC (Bld) Automated neutrophil % . [facility] No Panel InformationOrdered By: Pete Erazo on 12-17-2024 Estimated GFR (CKD-EPI) > 60.0 mL/Min [facility] Creatinine Clearance (Chem N/A [facility] Protein Electrophoresis M-Hernando Not observed g/dL Not Observed [facility] Protein Electrophoresis Note Comment . [facility] Comment on above: Protein electrophore sis scan will follow via computer,mail, or courtroom reporter delivery.Performed at: [address] [id number] Director: Raghav Murphy PhD, Phone: [phone] Nucleated erythrocytes [Pres ence] in Blood by Automated countOrdered By: Pete Erazo on 12-17-2024 Nucleated RBC Auto Ql (Bld) Nucleated erythrocytes [Presence] in Blood by Automated count 0-0.5 [facility] Platelet mean volume Auto (B ld) [Entitic vol]Ordered By: Pete Erazo on 12-17-2024 Platelet mean volume (Bld) [Entitic vol] Platelet mean volume [Entitic volume] in Blood by Automated count 6.3-10.7 [facility] Platelets Auto (Bld) [#/Vol] Ordered By: Pete Erazo on 12-17-2024 Platelets (Bld) [#/Vol] Platelets [#/vol ume] in Blood by Automated count 150-450 [facility] Potassium [Moles/volume] in Serum or PlasmaOrdered By: Pete Erazo on 12-17-2024 Potassium [Moles/Vol] Potassium [Moles/v olume] in Serum or Plasma 3.5-5.1 [facility] Protein Electrophoresis, Ser umon 12-17-2024 Albumin [Mass/Vol] 3.0 g/dL Normal 2.9-4.4 [facility] Comment on above: Performed By: #### K APPA, SULAIMAN SERUM, SPE #### [facility] , #### CMP #### [place] [address] [place] Albumin/Globulin [Mass ratio] 0.6 {ratio} Low 0.7-1.7 [facility] Comment on above: Performed By: #### K APPA, SULAIMAN SERUM, SPE #### [facility] , #### CMP #### [facility] [address] [place] [address] [place] Fmuhy-5-Lcogxbft 0.3 g/dL Normal 0.0-0.4 [facility] Comment on above: Performed By: #### K APPA, SULAIMAN SERUM, SPE #### [facility] , #### CMP #### [facility] [address] [place] [address] [place] Raftn-7-Likgndgp 1.1 g/dL High 0.4-1.0 [facility] Comment on above: Performed By: #### K APPA, SULAIMAN SERUM, SPE #### [facility] , #### CMP #### [facility] [address] [place] [address] [place] Beta Globulin 1.1 g/dL Normal 0.7-1.3 [facility] Comment on above: Performed By: #### K APPA, SULAIMAN SERUM, SPE #### [facility] , #### CMP #### [address] Gamma Globulin 2.5 g/dL High 0.4-1.8 [facility] Comment on above: Performed By: #### K APPA, SULAIMAN SERUM, SPE #### [facility] , #### CMP #### [address] Globulin (S) [Mass/Vol] 5.0 g/dL High 2.2-3.9 [facility] Comment on above: Performed By: #### K APPA, SULAIMAN SERUM, SPE #### [facility] , #### CMP #### [address] M-Hernando Not Observed Normal Not Observed [facility] Comment on above: Performed By: #### K APPA, SULAIMAN SERUM, SPE #### [facility] , #### CMP #### [address] Protein [Mass/Vol] 8.0 g/dL Normal 6.0-8.5 [facility] Comment on above: Performed By: #### K APPA, SULAIMAN SERUM, SPE #### [facility] , #### CMP #### [address] SPE-Note Comment Normal . [facility] Comment on above: Result Comment: Prot ein electrophoresis scan will follow via computer, mail, or courtroom reporter delivery. Performed at: [address] [id number] Solid State Tester: Raghav Murphy PhD, Phone: [phone] Performed By: #### K APPA, SULAIMAN SERUM, SPE #### [facility] , #### CMP #### [address] [place] [address] [facility] Protein [Mass/volume] in Ser um or PlasmaOrdered By: Pete Erazo on 12-17-2024 Protein [Mass/Vol] Protein [Mass/volume ] in Serum or Plasma 6.0-8.5 [facility] RBC Auto (Bld) [#/Vol]Ordere d By: Pete Erazo on 12-17-2024 RBC (Bld) [#/Vol] Erythrocytes [#/volu me] in Blood by Automated count 3.60-5.00 [facility] Serum free kappa light chain measurementOrdered By: Pete Erazo on 12-17-2024 Immunoglobulin light chains.kappa.free (S) [Mass/Vol] Immunoglobulin light chains.kappa.free [Mass/volume] in Serum High 3.3-19.4 [facility] Serum globulin measurement ( mass/volume)Ordered By: Pete Erazo on 12-17-2024 Globulin (S) [Mass/Vol] Serum globulin measurement (mass/volume) High 2.2-3.9 [facility] Serum immunofixation electro phoresisOrdered By: Pete Erazo on 12-17-2024 Serum Immunofixation Comment . [facility] Comment on above: No monoclonality det ected. Serum immunoglobulin free ka ppa light chains/immunoglobulin free lambda light chainsOrdered By: Pete Erazo on 12-17-2024 Immunoglobulin light chains.kappa.free/Immun oglobulin light chains.lambda.free (S) [Mass ratio] Immunoglobulin light chains.kappa.free/Immuno globulin light chains.lambda.free [Mass High 0.26-1.65 [facility] Comment on above: Performed at: [address] [id number] Director: Raghav Murphy PhD, Phone: [phone] Serum or plasma IgA measurem ent (mass/volume)Ordered By: Pete Erazo on 12-17-2024 IgA [Mass/Vol] IgA [Mass/volume] in Serum or Plasma 64-672 [facility] Serum or plasma IgG measurem ent (mass/volume)Ordered By: Pete Erazo on 12-17-2024 IgG [Mass/Vol] IgG [Mass/volume] in Serum or Plasma High 586-1602 [facility] Serum or plasma IgM measurem ent (mass/volume)Ordered By: Pete Erazo on 12-17-2024 IgM [Mass/Vol] IgM [Mass/volume] in Serum or Plasma 26-217 [facility] Comment on above: Performed at: [facility] [address] [id number] Director: Raghav Murphy PhD, Phone: [phone] Serum or plasma albumin demian urement (mass/volume)Ordered By: Pete Erazo on 12-17-2024 Albumin [Mass/Vol] Albumin [Mass/volume ] in Serum or Plasma 2.9-4.4 [facility] Serum or plasma albumin/glob ulin mass ratioOrdered By: Pete Erazo on 12-17-2024 Albumin/Globulin [Mass ratio] Serum or plasma albumin/globulin mass ratio Low 0.7-1.7 [facility] Serum or plasma alpha 1 glob ulin measurement by electrophoresis (mass/volume)Ordered By: Pete Erazo on 12-17-2024 Alpha 1 globulin Elph [Mass/Vol] Serum or plasma alpha 1 globulin measurement by electrophoresis (mass/volume) 0.0-0.4 [facility] Serum or plasma alpha 2 glob ulin measurement by electrophoresis (mass/volume)Ordered By: Pete Erazo on 12-17-2024 Alpha 2 globulin Elph [Mass/Vol] Serum or plasma alpha 2 globulin measurement by electrophoresis (mass/volume) High 0.4-1.0 [facility] Serum or plasma anion gap de terminationOrdered By: Pete Erazo on 12-17-2024 Anion gap [Moles/Vol] Serum or plasma an ion gap determination 6.0-15.0 [facility] Serum or plasma beta globuli n measurement by electrophoresis (mass/volume)Ordered By: Pete Erazo on 12-17-2024 Beta globulin Elph [Mass/Vol] Serum or plasma beta globulin measurement by electrophoresis (mass/volume) 0.7-1.3 [facility] Serum or plasma gamma globul in measurement by electrophoresis (mass/volume)Ordered By: Pete Erazo on 12-17-2024 Gamma globulin Elph [Mass/Vol] Serum or plasma gamma globulin measurement by electrophoresis (mass/volume) High 0.4-1.8 [facility] Serum or plasma immunoglobul in free lambda light chains measurement (mass/volume)Ordered By: Pete Erazo on 12-17-2024 Immunoglobulin light chains.lambda.free [Mass/Vol] Immunoglobulin light chains.lambda.free [Mass/volume] in Serum or Plasma High 5.7-26.3 [facility] Sodium [Moles/volume] in Ser um or PlasmaOrdered By: Pete Erazo on 12-17-2024 Sodium [Moles/Vol] Sodium [Moles/volume ] in Serum or Plasma 136-145 [facility] Urea nitrogen [Mass/volume] in Serum or PlasmaOrdered By: Pete Erazo on 12-17-2024 Urea nitrogen [Mass/Vol] Urea nitrogen [Mass/volume] in Serum or Plasma 7-25 [facility] WBC Auto (Bld) [#/Vol]Ordere d By: Pete Erazo on 12-17-2024 WBC (Bld) [#/Vol] Leukocytes [#/volume ] in Blood by Automated count 3.8-11.6 [facility] Folate [Mass/volume] in Seru m or PlasmaOrdered By: Petra Holliday on 10-21-2024 Folate [Mass/Vol] Folate [Mass/volume] in Serum or Plasma >5.9 [facility] Comment on above: Folate reference ran ge: >5.9 ng/mlThe WHO technical consultation on folate and vitamin [id number] has determined that folate concentrations lessthan 4 ng/ml are considered deficient. Vit. B12/Folate Profileon Cobalamin (Vitamin B12) [Mass/Vol] 261 pg/mL Normal 180-914 [facility] Comment on above: Performed By: #### K APPA, SULAIMAN SERUM, SPE #### [facility] , #### CMP #### [address] Folate 10.6 ng/mL Normal >5.9 [facility] Comment on above: Result Comment: Padmini te reference range: >5.9 ng/ml The WHO technical consultation on folate and vitamin b12 deficiencies has determined that folate concentrations less than 4 ng/ml are considered deficient. PERFORMED BY: [place] [address] PATHOLOGIST PLASTICS PATTERNMAKER KATELYNN HAMILTON M.D. Performed By: #### K APPA, SULAIMAN SERUM, SPE #### [facility] , #### CMP #### [address] Vitamin B12 ser/plasOrdered By: Petra Holliday on 10-21-2024 Cobalamin (Vitamin B12) [Mass/Vol] Vitamin B12 ser/plas 180-914 [facility] Folate [Mass/volume] in Seru m or PlasmaOrdered By: Petra Holliday on 07-24-2024 Folate [Mass/Vol] Folate [Mass/volume] in Serum or Plasma >5.9 [facility] Comment on above: Folate reference ran ge: >5.9 ng/mlThe WHO technical consultation on folate and vitamin [id number] has determined that folate concentrations lessthan 4 ng/ml are considered deficient. No Panel InformationOrdered By: Petra Holliday on 07-24-2024 Protein Electrophoresis M-Hernando Not observed g/dL Not Observed [facility] Protein Electrophoresis Note Comment . [facility] Comment on above: Protein electrophore sis scan will follow via computer,mail, or courtroom reporter delivery.Performed at: - [facility] [id number] Director: Raghav Murphy PhD, Phone: [phone] Protein Electrophoresis, Ser umon 07-24-2024 Albumin [Mass/Vol] 3.0 g/dL Normal 2.9-4.4 [facility] Comment on above: Performed By: #### K APPA, SULAIMAN SERUM, SPE #### [facility] , #### CMP #### [facility] [address] [place] [address] Albumin/Globulin [Mass ratio] 0.6 {ratio} Low 0.7-1.7 [facility] Comment on above: Performed By: #### K APPA, SULAIMAN SERUM, SPE #### [facility] , #### CMP #### [facility] [address] [place] [address] [place] Djmqg-4-Woefxssa 0.3 g/dL Normal 0.0-0.4 [facility] Comment on above: Performed By: #### K APPA, SULAIMAN SERUM, SPE #### [facility] , #### CMP #### [facility] [address] [place] [address] [place] Cksrj-3-Abtirdpb 1.0 g/dL Normal 0.4-1.0 [facility] Comment on above: Performed By: #### K APPA, SULAIMAN SERUM, SPE #### [facility] , #### CMP #### [facility] [address] [place] [address] [place] Beta Globulin 1.0 g/dL Normal 0.7-1.3 [facility] Comment on above: Performed By: #### K APPA, SULAIMAN SERUM, SPE #### [facility] , #### CMP #### [facility] [address] [place] [address] [place] Gamma Globulin 2.6 g/dL High 0.4-1.8 [facility] Comment on above: Performed By: #### K APPA, SULAIMAN SERUM, SPE #### [facility] , #### CMP #### [facility] [address] [place] [address] [place] Globulin (S) [Mass/Vol] 4.8 g/dL High 2.2-3.9 [facility] Comment on above: Performed By: #### K APPA, SULAIMAN SERUM, SPE #### [facility] , #### CMP #### [facility] [address] [place] [address] M-Hernando Not Observed Normal Not Observed [facility] Comment on above: Performed By: #### K APPA, SULAIMAN SERUM, SPE #### [facility] , #### CMP #### [address] Protein [Mass/Vol] 7.8 g/dL Normal 6.0-8.5 [facility] Comment on above: Performed By: #### K APPA, SULAIMAN SERUM, SPE #### [facility] , #### CMP #### [address] SPE-Note Comment Normal . [facility] Comment on above: Result Comment: Prot ein electrophoresis scan will follow via computer, mail, or courtroom reporter delivery. Performed at: [facility] [id number] Solid State Tester: Raghav Murphy PhD, Phone: [phone] PERFORMED BY: [place] [address] PATHOLOGIST PLASTICS PATTERNMAKER KATELYNN HAMILTON M.D. Performed By: #### K APPA, SULAIMAN SERUM, SPE #### [facility] , #### CMP #### [address] Serum globulin measurement ( mass/volume)Ordered By: Petra Holliday on 07-24-2024 Globulin (S) [Mass/Vol] Serum globulin measurement (mass/volume) High 2.2-3.9 [facility] Serum or plasma albumin demian urement (mass/volume)Ordered By: Petra Holliday on 07-24-2024 Albumin [Mass/Vol] Albumin [Mass/volume ] in Serum or Plasma 2.9-4.4 [facility] Serum or plasma albumin/glob ulin mass ratioOrdered By: Petra Holliday on 07-24-2024 Albumin/Globulin [Mass ratio] Serum or plasma albumin/globulin mass ratio Low 0.7-1.7 [facility] Serum or plasma alpha 1 glob ulin measurement by electrophoresis (mass/volume)Ordered By: Petra Holliday on 07-24-2024 Alpha 1 globulin Elph [Mass/Vol] Serum or plasma alpha 1 globulin measurement by electrophoresis (mass/volume) 0.0-0.4 [facility] Serum or plasma alpha 2 glob ulin measurement by electrophoresis (mass/volume)Ordered By: Petra Holliday on 07-24-2024 Alpha 2 globulin Elph [Mass/Vol] Serum or plasma alpha 2 globulin measurement by electrophoresis (mass/volume) 0.4-1.0 [facility] Serum or plasma beta globuli n measurement by electrophoresis (mass/volume)Ordered By: Petra Holliday on 07-24-2024 Beta globulin Elph [Mass/Vol] Serum or plasma beta globulin measurement by electrophoresis (mass/volume) 0.7-1.3 [facility] Serum or plasma gamma globul in measurement by electrophoresis (mass/volume)Ordered By: Petra Holliday on 07-24-2024 Gamma globulin Elph [Mass/Vol] Serum or plasma gamma globulin measurement by electrophoresis (mass/volume) High 0.4-1.8 [facility] Serum total protein measurem entOrdered By: Petra Holliday on 07-24-2024 Protein [Mass/Vol] Protein [Mass/volume ] in Serum or Plasma 6.0-8.5 [facility] Vit. B12/Folate Profileon Cobalamin (Vitamin B12) [Mass/Vol] 152 pg/mL Low 180-914 [facility] Comment on above: Performed By: #### K APPA, SULAIMAN SERUM, SPE #### [facility] , #### CMP #### [address] Folate 13.6 ng/mL Normal >5.9 [facility] Comment on above: Result Comment: Padmini te reference range: >5.9 ng/ml The WHO technical consultation on folate and vitamin b12 deficiencies has determined that folate concentrations less than 4 ng/ml are considered deficient. PERFORMED BY: [facility] [address] [id number] PATHOLOGIST PLASTICS PATTERNMAKER KATELYNN HAMILTON M.D. Performed By: #### K GARRYA, SULAIMAN SERUM, SPE #### [facility] , #### CMP #### [facility] [address] Vitamin B12 ser/plasOrdered By: Petra Holliday on 07-24-2024 Cobalamin (Vitamin B12) [Mass/Vol] Vitamin B12 ser/plas Low 180-914 [facility] Blood thiamine measurement ( moles/volume)Ordered By: Petra Holliday on 07-22-2024 Thiamine (Bld) [Moles/Vol] Blood thiamine measurement (moles/volume) 66.5-200.0 [facility] Comment on above: This test was develo ped and its performance characteristicsdetermined by [facility]. It has not been cleared orapproved by the Food and Drug Administration.Performed at: [address] [id number] Director: Heladio King MD, Phone: [phone] Folate [Mass/volume] in Seru m or PlasmaOrdered By: Petra Holliday on 07-22-2024 Folate [Mass/Vol] Folate [Mass/volume] in Serum or Plasma >5.9 [facility] Comment on above: Specimen hemolyzed, redraw requestedFolate reference range: >5.9 ng/mlThe WHO technical consultation on folate and vitamin [id number] has determined that folate concentrations lessthan 4 ng/ml are considered deficient. No Panel InformationOrdered By: Petra Holliday on 07-22-2024 Protein Electrophoresis M-Hernando Not observed g/dL Not Observed [facility] Protein Electrophoresis Note Comment . [facility] Comment on above: Protein electrophore sis scan will follow via computer,mail, or courtroom reporter delivery.Performed at: [address] [id number] Director: Raghav Murphy PhD, Phone: [phone] Protein Electrophoresis, Ser umon 07-22-2024 Albumin [Mass/Vol] 3.3 g/dL Normal 2.9-4.4 [facility] Comment on above: Performed By: #### K APPA, SULAIMAN SERUM, SPE #### [facility] , #### CMP #### [facility] [address] [place] [address] Albumin/Globulin [Mass ratio] 0.7 {ratio} Normal 0.7-1.7 [facility] Comment on above: Performed By: #### K APPA, SULAIMAN SERUM, SPE #### [facility] , #### CMP #### [facility] [address] [place] [address] [place] Cojmh-7-Byfzzqhk 0.3 g/dL Normal 0.0-0.4 [facility] Comment on above: Performed By: #### K APPA, SULAIMAN SERUM, SPE #### [facility] , #### CMP #### [facility] [address] [place] [address] [place] Gfxpi-4-Gphavloh 1.2 g/dL High 0.4-1.0 [facility] Comment on above: Performed By: #### K APPA, SULAIMAN SERUM, SPE #### [facility] , #### CMP #### [facility] [address] [place] [address] [place] Beta Globulin 1.2 g/dL Normal 0.7-1.3 [facility] Comment on above: Performed By: #### K APPA, SULAIMAN SERUM, SPE #### [facility] , #### CMP #### [facility] [address] [place] [address] [place] Gamma Globulin 1.8 g/dL Normal 0.4-1.8 [facility] Comment on above: Performed By: #### K APPA, SULAIMAN SERUM, SPE #### [facility] , #### CMP #### [facility] [address] [place] [address] [place] Globulin (S) [Mass/Vol] 4.5 g/dL High 2.2-3.9 [facility] Comment on above: Performed By: #### K APPA, SULAIMAN SERUM, SPE #### [facility] , #### CMP #### [address] M-Hernando Not Observed Normal Not Observed [facility] Comment on above: Performed By: #### K APPA, SULAIMAN SERUM, SPE #### [facility] , #### CMP #### [address] Protein [Mass/Vol] 7.8 g/dL Normal 6.0-8.5 [facility] Comment on above: Performed By: #### K APPA, SULAIMAN SERUM, SPE #### [facility] , #### CMP #### [facility] [address] [place] [address] SPE-Note Comment Normal . [facility] Comment on above: Result Comment: Prot ein electrophoresis scan will follow via computer, mail, or courtroom reporter delivery. Performed at: [facility] [id number] Solid State Tester: Raghav Murphy PhD, Phone: [phone] PERFORMED BY: [place] [address] PATHOLOGIST PLASTICS PATTERNMAKER KATELYNN HAMILTON M.D. Performed By: #### K APPA, SULAIMAN SERUM, SPE #### [facility] , #### CMP #### [address] Protein [Mass/volume] in Uri neOrdered By: Petra Holliday on 07-22-2024 Protein (U) [Mass/Vol] Protein [Mass/vol ume] in Urine High 0-9 [facility] Serum globulin measurement ( mass/volume)Ordered By: Petra Holliday on 07-22-2024 Globulin (S) [Mass/Vol] Serum globulin measurement (mass/volume) High 2.2-3.9 [facility] Serum or plasma albumin demian urement (mass/volume)Ordered By: Petra Holliday on 07-22-2024 Albumin [Mass/Vol] Albumin [Mass/volume ] in Serum or Plasma 2.9-4.4 [facility] Serum or plasma albumin/glob ulin mass ratioOrdered By: Petra Holliday on 07-22-2024 Albumin/Globulin [Mass ratio] Serum or plasma albumin/globulin mass ratio 0.7-1.7 [facility] Serum or plasma alpha 1 glob ulin measurement by electrophoresis (mass/volume)Ordered By: Petra Holliday on 07-22-2024 Alpha 1 globulin Elph [Mass/Vol] Serum or plasma alpha 1 globulin measurement by electrophoresis (mass/volume) 0.0-0.4 [facility] Serum or plasma alpha 2 glob ulin measurement by electrophoresis (mass/volume)Ordered By: Petra Holliday on 07-22-2024 Alpha 2 globulin Elph [Mass/Vol] Serum or plasma alpha 2 globulin measurement by electrophoresis (mass/volume) High 0.4-1.0 [facility] Serum or plasma beta globuli n measurement by electrophoresis (mass/volume)Ordered By: Petra Holliday on 07-22-2024 Beta globulin Elph [Mass/Vol] Serum or plasma beta globulin measurement by electrophoresis (mass/volume) 0.7-1.3 [facility] Serum or plasma gamma globul in measurement by electrophoresis (mass/volume)Ordered By: Petra Holliday on 07-22-2024 Gamma globulin Elph [Mass/Vol] Serum or plasma gamma globulin measurement by electrophoresis (mass/volume) 0.4-1.8 [facility] Serum total protein measurem entOrdered By: Petra Holliday on 07-22-2024 Protein [Mass/Vol] Protein [Mass/volume ] in Serum or Plasma 6.0-8.5 [facility] Total Protein, Urineon 07-22 Protein (U) [Mass/Vol] 37 mg/dL High 0-9 [facility] Comment on above: Result Comment: PERF ORMED BY: [place] [address] PATHOLOGIST PLASTICS PATTERNMAKER KATELYNN HAMILTON M.D. Performed By: #### K APPA, SULAIMAN SERUM, SPE #### [facility] , #### CMP #### [address] Vit. B12/Folate Profileon Folate Normal >5.9 [facility] Comment on above: Result Comment: Spec imen hemolyzed, redraw requested Folate reference range: >5.9 ng/ml The WHO technical consultation on folate and vitamin b12 deficiencies has determined that folate concentrations less than 4 ng/ml are considered deficient. PERFORMED BY: [place] [address] PATHOLOGIST PLASTICS PATTERNMAKER KATELYNN HAMILTON M.D. Performed By: #### K APPA, SULAIMAN SERUM, SPE #### [facility] , #### CMP #### [address] Vitamin B12 Normal 180-914 [facility] Comment on above: Result Comment: Spec imen hemolyzed, redraw requested Performed By: #### K APPA, SULAIMAN SERUM, SPE #### [facility] , #### CMP #### [address] Vitamin B1 (Thiamine) Bloodo n 07-22-2024 Vitamin B1 (Thiamine) Blood 135.7 Normal 66.5-200.0 [facility] Comment on above: Result Comment: This test was developed and its performance characteristics determined by [employer]. It has not been cleared or approved by the Food and Drug Administration. Performed at: [address] [id number] [employer] Tester: Heladio King MD, Phone: [phone] PERFORMED BY: [place] [id number] PATHOLOGIST PLASTICS PATTERNMAKER KATELYNN HAMILTON M.D. Performed By: #### K APPA, SULAIMAN SERUM, SPE #### [facility] , #### CMP #### [address] Vitamin B12 ser/plasOrdered By: Petra Holliday on 07-22-2024 Cobalamin (Vitamin B12) [Mass/Vol] Vitamin B12 ser/plas 180-914 [facility] Comment on above: Specimen hemolyzed, redraw requested Creatinine [Mass/volume] in UrineOrdered By: Lety Flynn on 03-03-2024 Creatinine (U) [Mass/Vol] 110.00 mg/dL [facility] Comment on above: No reference range e stablished MicroAlb Creat Ratio,Uon Creatinine, Urine (Random) 110.00 mg/dL Normal [facility] Comment on above: Result Comment: No r eference range established Performed By: #### K APPA, SULAIMAN SERUM, SPE #### [facility] , #### CMP #### [address] Microalbumin/Creatinine Ratio 14.5 mg/g Normal 0.0-30.0 [facility] Comment on above: Result Comment: 30-3 00 mg/g indicates an increased risk for diabetic nephropathy. Greater than 300 mg/g is consistent with clinical nephropathy. (Am. J. Kidney Disease 1994, 25:107) PERFORMED BY: [place] [address] PATHOLOGIST PLASTICS PATTERNMAKER NORIS VALDES M.D. Performed By: #### K APPA, SULAIMAN SERUM, SPE #### [facility] , #### CMP #### [place] [id number] [facility] Microalbumin [Mass/volume] i n UrineOrdered By: Lety Flynn on 03-03-2024 Albumin DL <= 20 mg/L (U) [Mass/Vol] 1.6 mg/dL Normal 0.0-1.8 [facility] Comment on above: Performed By: #### K APPALTA ValentinE SERUM, SPE #### [facility] , #### CMP #### [facility] [address] Urine microalbumin/creatinin e mass ratioOrdered By: Lety Flynn on 03-03-2024 Albumin/Creatinine DL <= 20 mg/L (U) [Mass ratio] 14.5 mg/g 0.0-30.0 [facility] Comment on above: 30-300 mg/g indicate s an increased risk for diabetic nephropathy. Greater than 300 mg/g is consistent with clinical nephropathy. (Am. J. Kidney Disease 1995, 25:107) Alanine aminotransferase [En zymatic activity/volume] in Serum or PlasmaOrdered By: Lety Flynn on 02-27-2024 ALT [Catalytic activity/Vol] 12 U/L Normal 7-52 [facility] Comment on above: Performed By: #### F E PRO, CBC, TSH3, CMP, LIPID #### [facility] [address] [place] [address] [place] Albumin [Mass/volume] in Ser um or Plasma by Bromocresol green (BCG) dye binding methoOrdered By: Lety Flynn on 02-27-2024 Albumin BCG dye [Mass/Vol] 3.6 g/dL 3.5-5.7 [facility] Alkaline phosphatase [Enzyma tic activity/volume] in Serum or PlasmaOrdered By: Lety Flynn on 02-27-2024 ALP [Catalytic activity/Vol] 95 U/L Normal 34-104 [facility] Comment on above: Performed By: #### F E PRO, CBC, TSH3, CMP, LIPID #### [facility] [address] [place] [address] [place] Aspartate aminotransferase [ Enzymatic activity/volume] in Serum or PlasmaOrdered By: Lety Flynn on 02-27-2024 AST [Catalytic activity/Vol] 17 U/L Normal 13-39 [facility] Comment on above: Performed By: #### F E PRO, CBC, TSH3, CMP, LIPID #### [address] Automated basophil %Ordered By: Lety Flynn on 02-27-2024 Basophils/100 WBC (Bld) 0.6 % Normal . [facility] Comment on above: Performed By: #### F E PRO, CBC, TSH3, CMP, LIPID #### [address] Automated basophil countOrde red By: Lety Flynn on 02-27-2024 Basophils (Bld) [#/Vol] 0.1 10*3/uL Normal 0.0-0.2 [facility] Comment on above: Result Comment: PERF ORMED BY: [place] [address] PATHOLOGIST PLASTICS PATTERNMAKER NORIS VALDES M.D. Performed By: #### F E PRO, CBC, TSH3, CMP, LIPID #### [address] Automated blood monocyte cou ntOrdered By: Lety Flynn on 02-27-2024 Monocytes (Bld) [#/Vol] 0.7 10*3/uL Normal 0.0-0.8 [facility] Comment on above: Performed By: #### F E PRO, CBC, TSH3, CMP, LIPID #### [address] Automated eosinophil %Ordere d By: Lety Flynn on 02-27-2024 Eosinophils/100 WBC (Bld) 3.9 % Normal . [facility] Comment on above: Performed By: #### F E PRO, CBC, TSH3, CMP, LIPID #### [address] Automated eosinophil countOr dered By: Lety Flynn on 02-27-2024 Eosinophils (Bld) [#/Vol] 0.3 10*3/uL Normal 0.0-0.45 [facility] Comment on above: Performed By: #### F E PRO, CBC, TSH3, CMP, LIPID #### [facility] [address] Automated monocyte %Ordered By: Lety Flynn on 02-27-2024 Monocytes/100 WBC (Bld) 9.0 % Normal . [facility] Comment on above: Performed By: #### F E PRO, CBC, TSH3, CMP, LIPID #### [facility] [address] Automated neutrophil %Ordere d By: Lety Flynn on 02-27-2024 Neutrophils/100 WBC (Bld) 67.9 % Normal . [facility] Comment on above: Performed By: #### F E PRO, CBC, TSH3, CMP, LIPID #### [address] Bilirubin.total [Mass/volume ] in Serum or PlasmaOrdered By: Lety Flynn on 02-27-2024 Bilirubin [Mass/Vol] 0.3 mg/dL Normal 0.3-1.0 [facility] Comment on above: Performed By: #### F E PRO, CBC, TSH3, CMP, LIPID #### [place] [address] [place] Calcium [Mass/volume] in Ser um or PlasmaOrdered By: Lety Flynn on 02-27-2024 Calcium [Mass/Vol] 9.2 mg/dL Normal 8.6-10.[address] [facility] Comment on above: Performed By: #### F E PRO, CBC, TSH3, CMP, LIPID #### [place] [address] [place] Carbon dioxide, total [Moles /volume] in Serum or PlasmaOrdered By: Lety Flynn on 02-27-2024 CO2 [Moles/Vol] 28.4 mmol/L Normal 21.0-31.0 [facility] Comment on above: Performed By: #### F E PRO, CBC, TSH3, CMP, LIPID #### [place] [address] [place] Chloride [Moles/volume] in S asiya or PlasmaOrdered By: Lety Flynn on 02-27-2024 Chloride [Moles/Vol] 105 mmol/L Normal 98-107 [facility] Comment on above: Performed By: #### F E PRO, CBC, TSH3, CMP, LIPID #### [facility] [address] Cholesterol [Mass/volume] in Serum or PlasmaOrdered By: Lety Flynn on 02-27-2024 Cholesterol [Mass/Vol] 138 mg/dL Low 140-200 [facility] Comment on above: Chol less than 200 m g/dl low riskChol 201-239 mg/dl borderline riskChol 240 mg/dl and greater high risk Result Comment: Chol less than 200 mg/dl low risk Chol 201-239 mg/dl borderline risk Chol 240 mg/dl and greater high risk Performed By: #### F E PRO, CBC, TSH3, CMP, LIPID #### [facility] [address] Cholesterol in LDL Calc [Mas s/Vol]Ordered By: Lety Flynn on 02-27-2024 Cholesterol in LDL [Mass/Vol] 70 mg/dL 0-100 [facility] Comment on above: LDL ATP III CLASSIFI CATIONLDL less than 100 mg/dL OptimalLDL 100-129 mg/dL Near or above optimalLDL 130-159 mg/dL Borderline highLDL 160-189 mg/dL HighLDL greater than 189 mg/dL Very high Cholesterol in VLDL Calc [Ma ss/Vol]Ordered By: Lety Flnyn on 02-27-2024 Cholesterol in VLDL [Mass/Vol] 12 mg/dL [facility] Complete Blood Count Auto Di ffon 02-27-2024 Mean Corpuscular HGB Conc 32.9 g/dL Normal 32.0-35.0 [facility] Comment on above: Performed By: #### F E PRO, CBC, TSH3, CMP, LIPID #### [facility] [address] NRBC% 0.1 /100{WBC} Normal 0-0.5 [facility] Comment on above: Performed By: #### F E PRO, CBC, TSH3, CMP, LIPID #### [facility] [address] Comprehensive Metabolic Pane norma 02-27-2024 Albumin [Mass/Vol] 3.6 g/dL Normal 3.5-5.7 [facility] Comment on above: Performed By: #### F E PRO, CBC, TSH3, CMP, LIPID #### [address] GFR/1.73 sq M.predicted MDRD (S/P/Bld) [Vol rate/Area] mL/min/{1.73_m2} Normal [facility] Comment on above: Performed By: #### F E PRO, CBC, TSH3, CMP, LIPID #### [address] Creatinine [Mass/volume] in Serum or PlasmaOrdered By: Lety Flynn on 02-27-2024 Creatinine [Mass/Vol] 0.68 mg/dL Normal 0.60-1.20 [facility] Comment on above: Performed By: #### F E PRO, CBC, TSH3, CMP, LIPID #### [address] Erythrocyte distribution wid th [Ratio] by Automated countOrdered By: Lety Flynn on 02-27-2024 Erythrocyte distribution width (RBC) [Ratio] 14.4 % Normal 11.9-15.3 [facility] Comment on above: Performed By: #### F E PRO, CBC, TSH3, CMP, LIPID #### [address] Erythrocytes [#/volume] in B lood by Automated countOrdered By: Lety Flynn on 02-27-2024 RBC (Bld) [#/Vol] 4.54 10*6/uL Normal 3.60-5.00 [facility] Comment on above: Performed By: #### F E PRO, CBC, TSH3, CMP, LIPID #### [address] FE PROon 02-27-2024 % Iron Saturation 22.6 % Normal 20-50 [facility] Comment on above: Performed By: #### F E PRO, CBC, TSH3, CMP, LIPID #### [facility] [address] Total Iron Binding Capacity 288 ug/dL Normal 255-450 [facility] Comment on above: Performed By: #### F E PRO, CBC, TSH3, CMP, LIPID #### [facility] [address] [place] [address] [place] Ferritin [Mass/volume] in Se rum or PlasmaOrdered By: Lety Flynn on 02-27-2024 Ferritin [Mass/Vol] 178.2 ng/mL Normal 11.0-306.8 [facility] Comment on above: Performed By: #### F E PRO, CBC, TSH3, CMP, LIPID #### [facility] [address] [place] [id number] [place] Glucose [Mass/volume] in Ser um or PlasmaOrdered By: Lety Flynn on 02-27-2024 Glucose [Mass/Vol] 86 mg/dL Normal 70-[address] [facility] Comment on above: ADA recommended refe rence rangeRandom Glucose Reference Range is dependent on time and content of last meal. Glucose of more than 200 mg/dL in a nonstressed, ambulatory subject supports the diagnosis of Diabetes Mellitus. Result Comment: Mars[place] om Glucose Reference Range is dependent on time and content of last meal. Glucose of more than 200 mg/dL in a nonstressed, ambulatory subject supports the diagnosis of Diabetes Mellitus. ADA recommended reference range Performed By: #### F E PRO, CBC, TSH3, CMP, LIPID #### [facility] [address] [place] [id number] [place] HbA1c HPLC (Bld) [Mass fract ion]on 02-27-2024 HbA1c (Bld) [Mass fraction] 5.6 % [facility] Hematocrit [Volume Fraction] of Blood by Automated countOrdered By: Lety Flynn on 02-27-2024 Hematocrit (Bld) [Volume fraction] 39.4 % Normal 34.0-46.4 [facility] Comment on above: Performed By: #### F E PRO, CBC, TSH3, CMP, LIPID #### [facility] [address] Hemoglobin [Mass/volume] in BloodOrdered By: Lety Flynn on 02-27-2024 Hemoglobin (Bld) [Mass/Vol] 12.9 g/dL Normal 11.8-15.4 [facility] Comment on above: Performed By: #### F E PRO, CBC, TSH3, CMP, LIPID #### [facility] [address] Iron [Mass/volume] in Serum or PlasmaOrdered By: Lety Flynn on 02-27-2024 Iron [Mass/Vol] 65 ug/dL Normal 50-212 [facility] Comment on above: Performed By: #### F E PRO, CBC, TSH3, CMP, LIPID #### [address] Iron binding capacity [Mass/ volume] in Serum or PlasmaOrdered By: Lety Flynn on 02-27-2024 Iron binding capacity [Mass/Vol] 288 ug/dL 255-450 [facility] Iron saturation [Mass Fracti on] in Serum or PlasmaOrdered By: Lety Flynn on 02-27-2024 Iron saturation [Mass fraction] 22.6 % 20-50 [facility] Leukocytes [#/volume] correc tiffanie for nucleated erythrocytes in Blood by Automated counOrdered By: Lety Flynn on 02-27-2024 WBC corrected for nucl RBC Auto (Bld) [#/Vol] 7.8 10*3/uL 3.8-11.6 [facility] Leukocytes [#/volume] in Blo od by Automated countOrdered By: Lety Flynn on 02-27-2024 WBC (Bld) [#/Vol] 7.8 10*3/uL Normal 3.8-11.[address] [facility] Comment on above: Performed By: #### F E PRO, CBC, TSH3, CMP, LIPID #### [facility] [address] [place] [address] Lipid Panelon 07-25-2024 LDL Cholesterol,Calculated 70 mg/dL Normal 0-100 [facility] Comment on above: Result Comment: LDL ATP III CLASSIFICATION LDL less than 100 mg/dL Optimal LDL 100-129 mg/dL Near or above optimal LDL 130-159 mg/dL Borderline high LDL 160-189 mg/dL High LDL greater than 189 mg/dL Very high Performed By: #### F E PRO, CBC, TSH3, CMP, LIPID #### [facility] [address] Triglyceride w/Reflex 63 mg/dL Normal 0-149 [facility] Comment on above: Result Comment: TRIG ATP III CLASSIFICATION TRIG less than 150 mg/dL Normal TRIG 150-199 mg/dL Borderline high TRIG 200-500 mg/dL High TRIG greater than 500 mg/dL Very high Standard traceable to the Center for Disease Conrtrol and Prevention (CDC) test method. Performed By: #### F E PRO, CBC, TSH3, CMP, LIPID #### [facility] [address] VLDL CHOLESTEROL 12 mg/dL Normal [facility] Comment on above: Performed By: #### F E PRO, CBC, TSH3, CMP, LIPID #### [facility] [address] [place] [address] [place] Lymphocytes [#/volume] in Bl ood by Automated countOrdered By: Lety Flynn on 02-27-2024 Lymphocytes (Bld) [#/Vol] 1.5 10*3/uL Normal 1.00-4.8 [facility] Comment on above: Performed By: #### F E PRO, CBC, TSH3, CMP, LIPID #### [facility] [address] [place] [address] [place] Lymphocytes/100 leukocytes i n Blood by Automated countOrdered By: Lety Flynn on 02-27-2024 Lymphocytes/100 WBC (Bld) 18.6 % Normal . [facility] Comment on above: Performed By: #### F E PRO, CBC, TSH3, CMP, LIPID #### [facility] [address] [place] [address] [place] MCH [Entitic mass] by Automa tiffanie countOrdered By: Lety Flynn on 02-27-2024 MCH (RBC) [Entitic mass] 28.5 pg Normal 24.7-34.3 [facility] Comment on above: Performed By: #### F E PRO, CBC, TSH3, CMP, LIPID #### [address] MCHC Auto (RBC) [Mass/Vol]Or dered By: Lety Flynn on 02-27-2024 MCHC (RBC) [Mass/Vol] 32.9 g/dL 32.0-35.0 [facility] MCV [Entitic volume] by Auto mated countOrdered By: Lety Flynn on 02-27-2024 MCV (RBC) [Entitic vol] 86.7 fL Normal 80-100 [facility] Comment on above: Performed By: #### F E PRO, CBC, TSH3, CMP, LIPID #### [facility] [address] [place] [address] Neutrophils [#/volume] in Bl ood by Automated countOrdered By: Lety Flynn on 02-27-2024 Neutrophils (Bld) [#/Vol] 5.3 10*3/uL Normal 1.8-7.7 [facility] Comment on above: Performed By: #### F E PRO, CBC, TSH3, CMP, LIPID #### [address] No Panel InformationOrdered By: Lety Flynn on 02-27-2024 Estimated GFR (CKD-EPI) > 60.0 mL/Min [facility] Creatinine Clearance (Chem N/A [facility] Nucleated erythrocytes [Pres ence] in Blood by Automated countOrdered By: Lety Flynn on 02-27-2024 Nucleated RBC Auto Ql (Bld) 0.1 /100{WBC} 0-0.5 [facility] Platelet mean volume [Entiti c volume] in Blood by Automated countOrdered By: Lety Flynn on 02-27-2024 Platelet mean volume (Bld) [Entitic vol] 7.6 fL Normal 6.3-10.7 [facility] Comment on above: Performed By: #### F E PRO, CBC, TSH3, CMP, LIPID #### [address] Platelets [#/volume] in Bloo d by Automated countOrdered By: Lety Flynn on 02-27-2024 Platelets (Bld) [#/Vol] 335 10*3/uL Normal 150-450 [facility] Comment on above: Performed By: #### F E PRO, CBC, TSH3, CMP, LIPID #### [address] Potassium [Moles/volume] in Serum or PlasmaOrdered By: Lety Flynn on 02-27-2024 Potassium [Moles/Vol] 4.2 mmol/L Normal 3.5-5.1 [facility] Comment on above: Performed By: #### F E PRO, CBC, TSH3, CMP, LIPID #### [address] Protein [Mass/volume] in Ser um or PlasmaOrdered By: Lety Flynn on 02-27-2024 Protein [Mass/Vol] 8.0 g/dL Normal 6.4-8.[address] [facility] Comment on above: Performed By: #### F E PRO, CBC, TSH3, CMP, LIPID #### [address] Serum globulin measurement b y calculation (mass/volume)Ordered By: Lety Flynn on 02-27-2024 Globulin (S) [Mass/Vol] 4.4 g/dL Normal [facility] Comment on above: Performed By: #### F E PRO, CBC, TSH3, CMP, LIPID #### [address] Serum or plasma albumin/glob ulin mass ratioOrdered By: Lety Flynn on 02-27-2024 Albumin/Globulin [Mass ratio] 0.8 {ratio} [facility] Comment on above: Performed By: #### F E PRO, CBC, TSH3, CMP, LIPID #### [address] [place] [address] [place] Serum or plasma anion gap de terminationOrdered By: Lety Flynn on 02-27-2024 Anion gap [Moles/Vol] 8.8 mmol/L Normal 6.0-15.0 [facility] Comment on above: Performed By: #### F E PRO, CBC, TSH3, CMP, LIPID #### [facility] [address] [place] [address] Serum or plasma high density lipoprotein (HDL) cholesterol measurementOrdered By: Lety Flynn on 02-27-2024 Cholesterol in HDL [Mass/Vol] 55 mg/dL Normal 23-92 [facility] Comment on above: HDL CHOL ATP-III CLA SSIFICATION Cardiovascular RiskHDL > or equal to 60 mg/dL LOWHDL < 40 mg/dL HIGH Result Comment: HDL CHOL ATP-III CLASSIFICATION Cardiovascular Risk HDL > or equal to 60 mg/dL LOW HDL < 40 mg/dL HIGH Performed By: #### F E PRO, CBC, TSH3, CMP, LIPID #### [address] Serum or plasma total choles terol/high density lipoprotein (HDL) cholesterol mass ratOrdered By: Lety Flynn on 02-27-2024 Cholesterol.total/Kiki sterol in HDL [Mass ratio] 2.5 {ratio} Normal <5.0 [facility] Comment on above: Performed By: #### F E PRO, CBC, TSH3, CMP, LIPID #### [facility] [address] [place] [address] Sodium [Moles/volume] in Ser um or PlasmaOrdered By: Lety Flynn on 02-27-2024 Sodium [Moles/Vol] 138 mmol/L Normal 136-[address] [facility] Comment on above: Performed By: #### F E PRO, CBC, TSH3, CMP, LIPID #### [address] Thyrotropin [Units/volume] i n Serum or PlasmaOrdered By: Lety Flynn on 02-27-2024 TSH Qn 3.83 m[IU]/L Normal 0.45-5.33 [facility] Comment on above: Result Comment: PERF ORMED BY: [place] [address] PATHOLOGIST PLASTICS PATTERNMAKER NORIS VALDES M.D. Performed By: #### F E PRO, CBC, TSH3, CMP, LIPID #### [facility] [address] Transferrin [Mass/volume] in Serum or PlasmaOrdered By: Lety Flynn on 02-27-2024 Transferrin [Mass/Vol] 206 mg/dL Normal 203-362 [facility] Comment on above: Performed By: #### F E PRO, CBC, TSH3, CMP, LIPID #### [address] Triglyceride [Mass/volume] i n Serum or PlasmaOrdered By: Lety Flynn on 02-27-2024 Triglyceride [Mass/Vol] 63 mg/dL 0-149 [facility] Comment on above: TRIG ATP III CLASSIF ICATIONTRIG less than 150 mg/dL NormalTRIG 150-199 mg/dL Borderline highTRIG 200-500 mg/dL High TRIG greater than 500 mg/dL Very highStandard traceable to the Center for Disease Conrtrol and Prevention (CDC) test method. Urea nitrogen [Mass/volume] in Serum or PlasmaOrdered By: Lety Flynn on 02-27-2024 Urea nitrogen [Mass/Vol] 18 mg/dL Normal 7-25 [facility] Comment on above: Performed By: #### F E PRO, CBC, TSH3, CMP, LIPID #### [address] C Urineon 02-20-2024 Bacteria identified Cx Nom (U) Microbiology PROCEDURE: Urine Culture [R1] SOURCE: U CleanCatch BODY SITE: COLLECTED DATE/TIME: 02/18/2024 12:28 EDT RECEIVED DATE/TIME: 02/18/2024 18:02 EDT START DATE/TIME: 02/18/2024 18:02 EDT FREE TEXT SOURCE: Terra CHOWDHURYCARLOS A, CARLOS A Ellison APRN, Cinthya X Cinthya X FINAL REPORTS Final Report [] Verified Date/Time: 02/20/2024 11:11 EDT <10,000 cfu/ml Mixed skin contaminants Performing Locations R1: This test was performed at: [facility], [address] [place] [address], [id number] , [place], Normal [facility] Comment on above: Performed By: #### [id number] #### [facility] [address] [place] [id number] Ambulatory Visit Summaryon 0 02-18-2024 Ambulatory Visit Summary Ambulatory Visit Summary JOSE KIM :1945 Visit Date:02/18/2024 Ambulatory Visit Instructions Your Diagnosis Gross hematuria Unspecified urethral stricture, female Frequency of urination Kidney stone Vaginal pain Your Care Team Attending Physician - CARLOS A Ellison APRN, [place] [facility] Primary Care Physician - LETY FLYNN CNP This Is Your Medications List albuterol (Albuterol (Eqv-Proventil HFA) 90 mcg/inh inhalation aerosol) alendronate (alendronate 70 mg Tab) atorvastatin (atorvastatin 20 mg Tab) fluticasone/umeclidinium /vilanterol (Trelegy Ellipta 200 mcg-62.5 mcg-25 mcg/inh inhalation powder) ondansetron (ondansetron 8 mg Dis Tab) sertraline (sertraline 25 mg Tab) Procedures Performed Cystoscopy (09/17/2023), Cystourethroscopy with dilation of urethral stricture (06/11/2023), Appendectomy, Procedure on lower leg. Discharge Vitals Heart Rate (Peripheral) 68 Respiratory Rate 16 Blood Pressure 110/68 Height 161 cm Height 63 in Weight 50 kg Weight 110 lb BMI 19.29 Medications What When Instructions Unchanged albuterol (Albuterol (Eqv-Proventil HFA) 90 mcg/ inh inhalation aerosol) Unchanged alendronate (alendronate 70 mg Tab) TAKE 1 TABLET BY MOUTH ONCE A WEEK Unchanged atorvastatin (atorvastatin 20 mg Tab) Unchanged fluticasone/ umeclidinium/ vilanterol (Trelegy Ellipta 200 mcg-62.5 mcg-25 mcg/ inh inhalation powder) Unchanged ondansetron (ondansetron 8 mg Dis Tab) Unchanged sertraline (sertraline 25 mg Tab) TAKE 1 TABLET BY MOUTH EVERY DAY FOR 30 DAYS Allergies No Known Medication Allergies Problems Ongoing - Any problem that you are currently receiving treatment for. At risk for falls Chronic obstructive pulmonary disease (COPD) Frequency of urination Gross hematuria High cholesterol Hydronephrosis Hypertension Kidney stone Psoriasis Unspecified urethral stricture, female Vaginal pain Patient Survey You may receive a survey via text or e-mail asking about your office visit. Please share your experience with us by completing your survey. We appreciate your feedback and thank you for choosing us for your care. Normal [facility] Urology Office/Clinic Noteon 02-18-2024 Urology Office/Clinic Note Urology Office/Clinic Note Chief Complaint S/P Cysto & Macrobid therapy HPI Staff PRW pt S/P Cysto/UD 06/11/23. Given 2-4m (?) of Macrobid. Then repeat Cysto/UD 09/17/23. DX: Gross Hematuria, Frequency, Kidney tone, Vaginal pain *Macrobid daily x2m repeated after repeat Cysto/UD +C&S at time of last office encounter. >100k E Coli. Tx'd w/Doxy Denies pain/burning. Urgency has improved. States urinary sx have returned back to normal. History of Present Illness I have reviewed and verified the staff HPI to be accurate for this encounter. Portions of this record may have been created with voice recognition artificial intelligence software, specifically [employer], [employer] and or [employer]. Substitutions may have occurred due to the inherent limitations of voice recognition and artificial intelligence software. Review of Systems PHQ Score Initial Depression Screen Score: 0 SCORE Physical Exam Vitals & Measurements HR: 68(Peripheral) RR: 16 BP: 110/68 HT: 63 in HT: 161 cm WT: 50 kg WT: 110 lb BMI: 19.29 General: Well developed, well nourished, in no acute distress. Genitourinary: Flank Pain: none. Bladder: nonpalpable. Assessment/Plan PRW pt 1. Gross hematuria (R31.0: Gross hematuria) [facility] ER visit on 04/12/23. Has had increased confusion and SOB for about a month, dx w/ pulmonary embolism at [facility] and was prescribed Eliquis a month ago. Complications began after a fall that caused a head fracture and pelvic and R hip fractures. Went to see PCP Lety Flynn prior to presentation to [facility] ER on 04/12/23 for hematuria that was visible by pt the past 3 days, given cefdinir 300mg bid per PCP. UA 04/12/23 showed 3+ blood. UCx 04/12/23 - neg, tx'd empirically. Saw PCP again 05/01/23 for f/u to ER visit. UA at that time showed 20-49 RBCs and innumerable WBCs. UCx 05/01/23 - neg. [1] CT AP wo/w con done 05/15/23 at [facility] showed a 3mm nonobstructing R renal stone, abnormal bladder wall thickening and inflammatory changes suggestive of cystitis. [2] s/p cysto/UD 06/11/23 -tight urethra, dilated to 30 Algerian with sounds. Abnormal bladder, poor visibility due to copious inflammatory debris's and blood. Patient did not tolerate bladder distention well. No tumors noted. Was placed on Macrobid x 2 months with plan for repeat cystoscopy. s/p cysto 09/17/23 -normal urethra, minimal inflammatory debris's in the bladder, small calcifications adhered to the bladder wall posteriorly. Traumatically last read, streaky irritated mucosa. No bladder tumors. Was placed on Macrobid for 2 more months. Patient has not experienced any episode of gross hematuria since prior office visit. She denies any symptoms of urinary infection today. She reports overall improvement of her urinary symptoms since dilation and long course of antibiotics. Patient to contact office with any repeat episode of gross hematuria. -Follow-up 6 months with PVR, sooner if needed 2. Unspecified urethral stricture, female (N35.92: Unspecified urethral stricture, female) s/p cysto/UD 06/11/23 Does not notice change in her urinary stream. However, she does note that she feels she is emptying a lot better since the urethral dilation. 3. Frequency of urination (R35.0: Frequency of micturition) Previously complained of frequency, urgency, incomplete emptying, nocturia. Since September, this is greatly improved. She is voiding every 3-4 hours, practices double voiding, but typically feels empty, denies any leaking, mild urgency. Overall, feels that her urinary symptoms are back at baseline, happy with urination at this time. UA today does show large leukocytes, trace intact blood. She denies any symptoms of infection. -Send culture today, given her history. Patient to call office if she becomes symptomatic. Ordered: Urnls Dip Stick Auto w/o Microscopy POC [id number] 4. Kidney stone (N20.0: Calculus of kidney) CT AP wo/w con done 05/15/23 at [facility] showed a 3mm nonobstructing R renal stone, abnormal bladder wall thickening and inflammatory changes suggestive of cystitis. [3] She denies any history of passing stones, stone procedures. She denies flank pain at this time. Discussed generalized stone prevention - pt encouraged to increase fluid intake so that he/she producing 2.5L of urine daily. Add 1/4 cup of lemon juice to water throughout the day or can also drink sugar free lemonade or clear soda. Avoid dark yesika. Restrict sodium intake. Restrict animal protein. -Continue to monitor 5. Vaginal pain (R10.2: Pelvic and perineal pain) Previously complained of vaginal pain, urethral pain which traveled to her anus. She notes that this is resolved in recent months. Orders: nitrofurantoin, 100 mg = 1 cap(s), Oral, BID, # 30 caplet(s), Refills(s) 0, Pharmacy: [facility]/pharmacy #[id number], 161, cm, 09/17/23 12:54:00 EST, Height/Length Dosing, 56, kg, 09/17/23 12:54:00 EST, Weight Dosing Follow-up No qualifying data available Patient Education (more content not included)... Normal [facility] Comment on above: Result Comment: Elec tronically Signed By: CARLOS A Ellison APRN, Cinthya Mendez\.br\Date and Time Signed: 02/18/24 12:05 EDT Consent for Procedure/Surger yon 09-17-2023 Consent for Procedure/Surgery [id number] FF Normal [facility] Consent for Treatmenton 09-05 Consent for Treatment [id number] [facility] IntraOperative Documentson 0 09-17-2023 IntraOperative Documents [id number] [facility] Main OR Intraoperative Recor don 09-17-2023 Main OR Intraoperative Record IntraOp Document Type FTURO Summary Primary Physician: Garcia TURNER MD Finalized Date/Time: 09/17/23 13:27:24 Pt. Name: KEVINJOSE/Sex: 1945 Female Med Rec #: [id number] Physician: Garcia TURNER MD Financial #: [id number] Pt. Type: O Room/Bed: / Admit/Disch: 09/17/23 12:28:44 - Institution: Case Times FTURO Entry 1 Patient Times In Room 09/17/23 13:07:00 Out Room 09/17/23 13:28:00 Procedure Times Start 09/17/23 13:14:00 Stop 09/17/23 13:22:00 Anesthesia Times Last Modified By: Jose TUCKER, AVINASHOR, Sandy 09/17/23 13:22:34 Case Attendance FTURO Entry 1 Entry 2 Entry 3 Case Attendee Garcia TURNER MD RN, CNOR, Juan REDD, Raya Delgado Role Performed Surgeon - Primary Medical Laboratory Technologist - Primary Scrub - Primary Time In 09/17/23 13:07:00 09/17/23 13:07:00 09/17/23 13:07:00 Time Out 09/17/23 13:28:00 09/17/23 13:28:00 09/17/23 13:28:00 Procedure CYSTOSCOPY LOCAL(.) CYSTOSCOPY LOCAL(.) CYSTOSCOPY LOCAL(.) Comments Last Modified By: Jose RN, CNOR, Jose RN, CNOR, Jose RN, AVINASHOR, Sandy 09/17/23 Sandy 09/17/23 Sandy 09/17/23 13:22:35 13:22:35 13:22:35 Surgical Procedures FTURO Entry 1 Procedure Description Procedure CYSTOSCOPY LOCAL Modifiers . Surgeon Description cysto Primary Procedure Yes Primary Surgeon Garcia TURNER MD Start 09/17/23 13:14:00 Stop 09/17/23 13:22:00 Anesthesia Type Local Surgical Service Urology Wound Class 2 - Clean-Contaminated Last Modified By: DIXON Garcia RN, Ruthann 09/17/23 13:22:36 General Case Data FTURO Pre-Care Text: Classifies surgical wound, implements aseptic technique, initiates traffic control Entry 1 Case Information OR URO 1 FT Case Level None Wound Class 2 - Clean-Contaminated Specialty Urology Preop Diagnosis URGENCY FREQUENCY Postop Same As Preop No INCOMPLETE EMPTY Postop Diagnosis URGENCY FREQUENCY Outcomes Met? Yes INCOMPLETE EMPTY, healling bladder, Last Modified By: DIXON Garcia RN, Ruthann 09/17/23 13:22:26 Post-Care Text: The patient is free from signs and symptoms of infection EU IntraOp - FTURO Pre-Care Text: Implements protective measures prior to operative or invasive procedure, confirms identity before the operative or invasive procedure, verifies operative procedure, surgical site, and laterality Entry 1 EU Perioperative Protocols Procedure(s) CYSTOSCOPY LOCAL(.) Patient Identity Birthday, ID Band Verified (select at Check, Patient least 2): Participation Consents / H and P HandP, Surgery/Procedure Operative Site N/A Verified Consent Marking Verified Surgical Site Yes Laterality Verified n/a Verified Procedure Verified Yes Correct Patient Yes Position Verified Availability Equipment, Medication Time Out Garcia TURNER MD, Verified (If Participants Jose TUCKER, AVINASHOR, Applicable) Juan Delgado CST, Kimberly A Time Out Complete 09/17/23 13:10:00 Allergies Reviewed? Yes Allergies Reviewed Self/Patient With Body Position Frog Legged Prep Area perineal area Prep Agents Betadine Solution Skin. Condition Unable to Visualize Additional None Specimens Collected Vitals - EU Blood Pressure Pulse Respirations SPO2 EBL 0 IandO - EU Total Intake 0 mL Total Output 0 mL Outcomes Met? Yes Last Modified By: DIXON Garcia RN, Ruthann 09/17/23 13:11:42 Post-Care Text: The patient is free from signs and symptoms of injury caused by extraneous objects Sign Out FTURO Entry 1 Before Patient Leaves OR Nurse verbally Yes Nurse verbally n/a confirms with the confirms with the team the name of team that the procedure(s) instrument, sponge, recorded and needle counts are correct (or N/A) Nurse verbally n/a Nurse verbally n/a confirms with the confirms with the team how the team whether there specimen is labeled are any equipment (including patient problems to be name), if applicable addressed Sign Out Complete 09/17/23 13:25:00 Last Modified By: DIXON Garcia RN, Ruthann 09/17/23 13:22:45 Case Comments Finalized By: DIXON Garcia RN, Ruthann Document Signatures Signed By: DIXON Garcia RN, Ruthann 09/17/23 13:22 DIXON Garcia RN, Ruthann 09/17/23 13:27 Normal [facility] Main OR Preoperative Recordo n 09-17-2023 Main OR Preoperative Record Holding Area Document Type FTURO Summary Primary Physician: Garcia TURNER MD Finalized Date/Time: 09/17/23 13:12:13 Pt. Name: JOSE KIM/Sex: 1945 Female Med Rec #: [id number] Physician: Garcia TURNER MD Financial #: [id number] Pt. Type: O Room/Bed: / Admit/Disch: 09/17/23 12:28:44 - Institution: Case Times Holding FTURO Pre-Care Text: Verifies consent for planned procedure, identifies individual values and wishes concerning care, includes family members in perioperative teaching Secures patient's records' belongings, and valuables, maintains patient's dignity and privacy, and maintains patient confidentiality Entry 1 In Holding 09/17/23 12:56:00 Outcomes Met? Yes Last Modified By: Anushka Lopez LPN 09/17/23 12:56:46 Post-Care Text: The patient participates in decisions affecting his or her perioperative plan of care The patient's right to privacy is maintained Surgery Checklist FTURO Entry 1 Patient Birthday, ID Band Procedure History and Physical, Identification: Check, Patient Verification: With Patient Participation NPO after Midnight: n/a Personal Items: Glasses Limitations: stand transfer, in Complaints of Pain: No wheelchair; right arm doesn't work Skin Integrity Intact, [place], Warm, & Dry Vitals - EU Blood Pressure 133/85 Pulse 62 bpm Respirations 18 br/min SPO2 100 % RN Reviewed Yes Last Modified By: DIXON Garcia RN, Ruthann 09/17/23 13:12:11 Finalized By: DIXON Garcia RN, Ruthann Document Signatures Signed By: John GALLARDO Anushka D 09/17/23 13:00 DIXON Garcia RN, Ruthann 09/17/23 13:12 Normal [facility] Operative Reporton Operative Report Patient: EVAN KIM Age: 78 years Sex: Female : 1945 Associated Diagnoses: None Author: Garcia TURNER MD Procedure Operative Information Details: Date/ Time: 09/17/2023 13:26:00. Pre-Op Dx: Gross Hematuria - R31.0, Hx of UTI's - Z87.440. Post-Op Dx: Same. Anesthesia Type: Local. Procedure: Local Cystoscopy. Complications: None. Risks/Benefits/Informed Consent: Surgical risks, benefits, details of the procedure have been explained to the patient, Full informed consent has been obtained. Intraoperative Information Prepped: Patient is brought back to the endoscopy suite, Patient is placed in modified dorso/lithotomy position, Patient prepped in the usual fashion with Betadine solution, 2% Xylocaine Jelly is placed per Urethra, After waiting several minutes the Cystoscope is introduced. The Urethra is: Normal. The Bladder is: Abnormal, No bladder tumors. Minimal inflammatory debris. Small calcifications adhered to the bladder wall posteriorly., Dramatically less red streaky irritated mucosa.. The ureteral orifices: Show efflux of clear urine. Devices Implanted: None. Removal: Cystoscope is removed, The patient tolerated it well. Postoperative Information Discharge: Patient is discharged home with antibiotic coverage, Follow up arranged. She will take him daily Macrobid for 2 more months. She will focus on double voiding for better emptying. Follow-up will be in 3 months.. Normal [facility] Comment on above: Result Comment: Elec tronically Signed By: Garcia TURNER MD\.br\Date and Time Signed: 09/17/23 13:28 EST C Urineon 06-14-2023 Bacteria identified Cx Nom (U) Microbiology PROCEDURE: Urine Culture [R1] SOURCE: U CleanCatch BODY SITE: COLLECTED DATE/TIME: 06/11/2023 15:17 EST RECEIVED DATE/TIME: 06/12/2023 14:39 EST START DATE/TIME: 06/12/2023 14:39 EST FREE TEXT SOURCE: CC oscar TURNER MD, Garcia TURNER MD, Garcia Swift FINAL REPORTS Final Report [] Verified Date/Time: 06/14/2023 10:39 EST 3,000 cfu/ml Escherichia coli SUSCEPTIBILITY RESULTS ___ LEGEND: S=Susceptible, N/R=Not Reported, Blank=Data not available, or drug not advisable or tested, I=Intermediate, ESBL=Extended spectrum beta-lactamase, R=Resistant, TFG=Thymidine-dependent strain, SANDRA=Beta-lactamase positive, LOUISA=mcg/m;(mg/L), S*=Predicted susceptible interp, R*=Predicted resistant interp EC Antibiotic LOUISA Dilutn LOUISA Interp Amikacin <=16 S Ampicillin <=8 S Ampicillin/ <=8/4 S Sulbactam Aztreonam <=4 S Cefazolin <=2 S Cefepime <=2 S Cefoxitin <=8 S Ceftazidime <=1 S Ceftazidime/ <=8 S Avibactam Ceftriaxone <=1 S Ciprofloxacin >2 R Ertapenem <=0.5 S Gentamicin <=4 S Levofloxacin >4 R Meropenem <=1 S Nitrofurantoin <=32 S Piperacillin/ <=16 S Tazobactam Tetracycline >8 R Tigecycline <=2 S Tobramycin <=4 S Trimethoprim/ >2/38 R Sulfa Performing Locations R1: This test was performed at: [facility], [address] [place] [address], [address] , , [facility] Comment on above: Performed By: #### 2 [id number] ####[facility] [id number] [place] [address] Consent for Procedure/Surger yon 06-11-2023 Consent for Procedure/Surgery [id number] [facility] Consent for Treatmenton Consent for Treatment [id number] [facility] IntraOperative Documentson 1 08-11-2022 IntraOperative Documents [id number] F [facility] Main OR Intraoperative Recor don 06-11-2023 Main OR Intraoperative Record IntraOp Document Type FTURO Summary Primary Physician: Garcia TURNER MD Finalized Date/Time: 06/11/23 15:26:08 Pt. Name: JOSE KIM/Sex: 1945 Female Med Rec #: [id number] Physician: Garcia TURNER MD Financial #: [id number] Pt. Type: O Room/Bed: / Admit/Disch: 06/11/23 14:03:29 - Institution: Case Times FTURO Entry 1 Patient Times In Room 06/11/23 15:04:00 Out Room 06/11/23 15:21:00 Procedure Times Start 06/11/23 15:09:00 Stop 06/11/23 15:15:00 Anesthesia Times Last Modified By: Raya Zhou RN 06/11/23 15:21:35 Case Attendance FTURO Entry 1 Entry 2 Entry 3 Case Attendee YUE GILL, Garcia Martinez PATIENT INTAKE COORDINATOR, Raya Aguayo RN Role Performed Surgeon - Primary Scrub - Primary Medical Laboratory Technologist - Primary Time In 06/11/23 15:04:00 06/11/23 15:04:00 06/11/23 15:04:00 Time Out 06/11/23 15:21:00 06/11/23 15:21:00 06/11/23 15:21:00 Procedure CYSTOSCOPY LOCAL WITH CYSTOSCOPY LOCAL WITH CYSTOSCOPY LOCAL WITH URETHRAL DILATION(.) URETHRAL DILATION(.) URETHRAL DILATION(.) Comments Last Modified By: Raya Zhou RN, RN, Raya Green RN 06/11/23 15:21:36 06/11/23 15:21:36 06/11/23 15:21:36 Surgical Procedures FTURO Entry 1 Procedure Description Procedure CYSTOSCOPY LOCAL WITH Modifiers . URETHRAL DILATION Surgeon Description CYSTOSCOPY LOCAL WITH URETHRAL DILATION Primary Procedure Yes Primary Surgeon YUE GILL, Garcia Swift Start 06/11/23 15:09:00 Stop 06/11/23 15:15:00 Anesthesia Type Local Surgical Service Urology Wound Class 2 - Clean-Contaminated Last Modified By: Raya Zhou RN 06/11/23 15:19:26 General Case Data FTURO Pre-Care Text: Classifies surgical wound, implements aseptic technique, initiates traffic control Entry 1 Case Information OR URO 1 FT Case Level None Wound Class 2 - Clean-Contaminated Specialty Urology Preop Diagnosis GROSS HEMATURIA, Postop Same As Preop Yes FREQUENCY, KIDNEY STONE Postop Diagnosis GROSS HEMATURIA, Outcomes Met? Yes FREQUENCY, KIDNEY STONE Last Modified By: Raya Zhou RN 06/11/23 14:47:22 Post-Care Text: The patient is free from signs and symptoms of infection EU IntraOp - FTURO Pre-Care Text: Implements protective measures prior to operative or invasive procedure, confirms identity before the operative or invasive procedure, verifies operative procedure, surgical site, and laterality Entry 1 EU Perioperative Protocols Procedure(s) CYSTOSCOPY LOCAL WITH Patient Identity Birthday, ID Band URETHRAL DILATION(.) Verified (select at Check, Patient least 2): Participation Consents / H and P HandP, Surgery/Procedure Operative Site N/A Verified Consent Marking Verified Surgical Site Yes Laterality Verified Yes Verified Procedure Verified Yes Correct Patient Yes Position Verified Availability Equipment, Medication Time Out Garcia TURNER MD, Verified (If Participants Raya Martinez CST Applicable) Winnie Valentin RN, Kimberly Y Time Out Complete 06/11/23 15:05:00 Allergies Reviewed? Yes Allergies Reviewed Self/Patient With Body Position Frog Legged Prep Area PERINEUM Prep Agents Betadine Solution Skin. Condition Dry, Warm, Unable to Description UNABLE TO VISUALIZE DUE Visualize TO PATIENT PARTIALLY CLOTHED Additional Other (See Comment) Specimens Comment URINE CULTURE Specimens Collected Vitals - EU Blood Pressure 121/76 Pulse 116 bpm Respirations 24 br/min SPO2 94 % EBL 0 IandO - EU Total Intake 0 mL Total Output 0 mL Outcomes Met? Yes Last Modified By: Raya Zhou RN 06/11/23 15:15:31 Post-Care Text: The patient is free from signs and symptoms of injury caused by extraneous objects Sign Out FTURO Entry 1 Before Patient Leaves OR Nurse verbally Yes Nurse verbally Yes confirms with the confirms with the team the name of team that the procedure(s) instrument, sponge, recorded and needle counts are correct (or N/A) Nurse verbally Yes Nurse verbally Yes confirms with the confirms with the team how the team whether there specimen is labeled are any equipment (including patient problems to be name), if applicable addressed Sign Out Complete 06/11/23 15:15:00 Last Modified By: Raya Zhou RN 06/11/23 15:15:37 Case Comments Finalized By: Raya Zhou RN Document Signatures Signed By: Raya Zhou RN 06/11/23 15:26 Normal [facility] Main OR Preoperative Recordo n 06-11-2023 Main OR Preoperative Record Holding Area Document Type FTURO Summary Primary Physician: Garcia TURNER MD Finalized Date/Time: 06/11/23 14:46:50 Pt. Name: JOSE KIM/Sex: 1945 Female Med Rec #: [id number] Physician: Garcia TURNER MD Financial #: [id number] Pt. Type: O Room/Bed: / Admit/Disch: 06/11/23 14:03:29 - Institution: Case Times Holding FTURO Pre-Care Text: Verifies consent for planned procedure, identifies individual values and wishes concerning care, includes family members in perioperative teaching Secures patient's records' belongings, and valuables, maintains patient's dignity and privacy, and maintains patient confidentiality Entry 1 In Holding 06/11/23 14:30:00 Outcomes Met? Yes Last Modified By: Ramona Priest LPN 06/11/23 14:30:32 Post-Care Text: The patient participates in decisions affecting his or her perioperative plan of care The patient's right to privacy is maintained Surgery Checklist FTURO Entry 1 Patient Birthday, ID Band Procedure History and Physical, Identification: Check, Patient Verification: Surgical Consent, With Participation Patient NPO after Midnight: n/a Date/Time: 06/11/23 14:37:00 Personal Items: Glasses Personal Items glasses, w/c Comment: Limitations: pt has weakness in Complaints of Pain: No legs, and uses w/c. pt has fractured right arm that is non-operatable, and non healing Skin Integrity Intact, [place], Warm, & Dry Vitals - EU Blood Pressure 121/76 Pulse 116 bpm Respirations 24 br/min SPO2 94 % RN Reviewed Yes Last Modified By: Raya Zhou RN 06/11/23 14:46:48 General Comments: Temp 36.5 Finalized By: Raya Zhou RN Document Signatures Signed By: Ramona Priest LPN 06/11/23 14:40 Raya Zhou RN 06/11/23 14:46 Normal [facility] Operative Reporton 3 Operative Report Patient: EVAN KIM Age: 78 years Sex: Female : 1945 Associated Diagnoses: None Author: Garcia TURNER MD Procedure Operative Information Details: Date/ Time: 06/11/2023 15:26:00. 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 Post-Op Dx: Same. Anesthesia Type: Local. Procedure: Local Cystoscopy with Urethral Dilation. Complications: None. Risks/Benefits/Informed Consent: Surgical risks, benefits, details of the procedure have been explained to the patient, Full informed consent has been obtained. Intraoperative Information Prepped: Patient is brought back to the endoscopy suite, Patient is placed in modified dorso/lithotomy position, Patient prepped in the usual fashion with Betadine solution, 2% Xylocaine Jelly is placed per Urethra, After waiting several minutes the Cystoscope is introduced. The Urethra is: Tight. The Bladder is: Abnormal, Poor visibility due to copious inflammatory debris and blood. Also, patient did not tolerate bladder distention well. No bladder tumors were seen.. The ureteral orifices: Show efflux of clear urine. The Urethra was dilated to: 30 Algerian w/ sounds. Devices Implanted: None. Removal: Cystoscope is removed, The patient tolerated it well. Postoperative Information Discharge: Patient is discharged home with antibiotic coverage, Follow up arranged. She will take Macrobid for couple months and we will bring her back and repeat a cystoscopy.. Normal [facility] Comment on above: Result Comment: Elec tronically Signed By: YUE GILL, Garcia Swift\.br\Date and Time Signed: 06/11/23 15:28 EST C Urineon 05-22-2023 Bacteria identified Cx Nom (U) Microbiology PROCEDURE: Urine Culture [R1] SOURCE: U Random BODY SITE: COLLECTED DATE/TIME: 05/20/2023 15:09 EDT RECEIVED DATE/TIME: 05/20/2023 19:52 EDT START DATE/TIME: 05/20/2023 19:52 EDT FREE TEXT SOURCE: YUE GILL, Garcia TURNER MD, Garcia Swift FINAL REPORTS Final Report [] Verified Date/Time: 05/22/2023 10:44 EDT >100,000 cfu/ml Escherichia coli SUSCEPTIBILITY RESULTS ___ LEGEND: S=Susceptible, N/R=Not Reported, Blank=Data not available, or drug not advisable or tested, I=Intermediate, ESBL=Extended spectrum beta-lactamase, R=Resistant, TFG=Thymidine-dependent strain, SANDRA=Beta-lactamase positive, LOUISA=mcg/m;(mg/L), S*=Predicted susceptible interp, R*=Predicted resistant interp EC Antibiotic LOUISA Dilutn LOUISA Interp Amikacin <=16 S Ampicillin <=8 S Ampicillin/ <=8/4 S Sulbactam Aztreonam <=4 S Cefazolin <=2 S Cefepime <=2 S Cefoxitin <=8 S Ceftazidime <=1 S Ceftazidime/ <=8 S Avibactam Ceftriaxone <=1 S Ciprofloxacin >2 R Ertapenem <=0.5 S Gentamicin <=4 S Levofloxacin >4 R Meropenem <=1 S Nitrofurantoin <=32 S Piperacillin/ <=16 S Tazobactam Tetracycline >8 R Tigecycline <=2 S Tobramycin <=4 S Trimethoprim/ >2/38 R Sulfa Performing Locations R1: [facility] [address] [place] [address], [facility]- , , [facility] Comment on above: Performed By: #### 2 [id number] ####[id number] [place] [address] Physician Referralon 023 Physician Referral [id number] [facility] Ambulatory Visit Summaryon 1 Ambulatory Visit Summary JOSE KIM DOB:1945 Visit Date:05/20/2023 Ambulatory Visit Instructions Your Diagnosis Gross hematuria Frequency of urination Kidney stone Hydronephrosis Vaginal pain Your Care Team Attending Physician - Garcia TURNER MD Primary Care Physician - LETY FLYNN CNP Referring Physician - LETY FLYNN CNP This Is Your Medications List Contact prescribing physician if questions or concerns albuterol (Albuterol (Eqv-Proventil HFA) 90 mcg/inh inhalation aerosol) apixaban (Eliquis 5 mg oral tablet) atorvastatin (atorvastatin 20 mg Tab) fluticasone/umeclidinium /vilanterol (Trelegy Ellipta 200 mcg-62.5 mcg-25 mcg/inh inhalation powder) fluticasone/umeclidinium /vilanterol (Trelegy Ellipta 200 mcg-62.5 mcg-25 mcg/inh inhalation powder) ondansetron (ondansetron 8 mg Dis Tab) Procedures Performed Appendectomy, Procedure on lower leg. Discharge Vitals Heart Rate (Peripheral) 88 Respiratory Rate 16 Blood Pressure 111/64 Height 161 cm Height 63 in Weight 56 kg Weight 123.2 lb BMI 21.6 What to do next Scheduled Follow-Up Appointments Saturday 11:00 AM EST With: YUE GILL, Garcia Swift Where: [facility] Urology Office/Clinic Noteon 05-20-2023 Urology Office/Clinic Note Chief Complaint gross hematuria HPI Staff 78 yo female new pt, never seen in our office before, here for f/u to [facility] ER visit on 04/12/23. Has had increased confusion and SOB for about a month, dx w/ pulmonary embolism at [facility] and was prescribed Eliquis a month ago. Complications began after a fall that caused a head fracture and pelvic and R hip fractures. Went to see PCP Lety Flynn prior to presentation to [facility] ER on 04/12/23 for hematuria that was visible by pt the past 3 days, given cefdinir 300mg bid per PCP. UA 04/12/23 showed 3+ blood. UCx 04/12/23 - neg, tx'd empirically. CT AP wo con done 04/12/23 at [facility] showed gross distention of bladder with wall thickening and inflammatory changes suggestive of cystitis, associated R hydronephrosis and hydroureter. Saw PCP again 05/01/23 for f/u to ER visit. UA at that time showed 20-49 RBCs and innumerable WBCs. UCx 05/01/23 - [address] CT AP wo/w con done 05/15/23 at [facility] showed a 3mm nonobstructing R renal stone, abnormal bladder wall thickening and inflammatory changes suggestive of cystitis. Dysuria: no Incomplete bladder emptying: voids about every hour and a half Hematuria: last seen about a day or 2 ago Frequency: very hour and a half Urgency: occasionally Nocturia: 2x Stream: weak Leaking: no Post void dripping: no Wearing pads/ Depends: no Urge incontinence: no Stress incontinence: no Incontinence without Sensory Awareness: no Abdominal pain: a little pressure and dull ache Flank pain: no Sexual complaints: no History of Present Illness Tests reviewed: reviewed UA and External Records. I have reviewed the previous health record information and history for this patient from External Provider. I have reviewed and verified the staff HPI to be accurate for this encounter. There have been no associated fever, chills, flank pain, or blood in the urine. Denies any urinary infections since last encounter. Review of Systems PHQ Score Initial Depression Screen Score: 0 ROS - Provider Constitutional: denies weight loss, denies hot flashes. Eyes: denies eye problems. Gastrointestinal: denies nausea, denies vomiting. Cardiovascular: denies chest pain or angina. Integumentary: no dryness Musculoskeletal: denies musculoskeletal symptoms. ENMT: denies otolaryngeal symptoms. Respiratory: no shortness of breath. Heme/Lymph: denies easy bleeding tendency, denies easy bruising tendency. Psychiatric: no confusion, no anxiety. Genitourinary: See HPI. Physical Exam Vitals & Measurements HR: 88(Peripheral) RR: 16 BP: 111/64 HT: 63 in HT: 161 cm WT: 56 kg WT: 123.2 lb BMI: 21.6 General Appearance: alert , no acute distress, well nourished, well developed female. Head: normocephalic . Eyes: normal orbit and globe. ENMT: normal examination of external ears. Chest: Lungs CTA, respirations non labored . Cardiovascular: regular rate and rhythm. Abdomen: soft, non distended, no tenderness, no mass or organomegaly, no hernia. Genitourinary: bladder nonpalpable, no flank tenderness. Lymph Nodes: unremarkable palpation of the cervical area. Skin: warm, dry, no bruising. Psychiatric: cooperative, affect appropriate for age, normal judgement, euthymic mood. Assessment/Plan 1. Gross hematuria (R31.0: Gross hematuria) [facility] ER visit on 04/12/23. Has had increased confusion and SOB for about a month, dx w/ pulmonary embolism at [facility] and was prescribed Eliquis a month ago. Complications began after a fall that caused a head fracture and pelvic and R hip fractures. Went to see PCP Lety Flynn prior to presentation to [facility] ER on 04/12/23 for hematuria that was visible by pt the past 3 days, given cefdinir 300mg bid per PCP. UA 04/12/23 showed 3+ blood. UCx 04/12/23 - neg, tx'd empirically. Saw PCP again 05/01/23 for f/u to ER visit. UA at that time showed 20-49 RBCs and innumerable WBCs. UCx 05/01/23 - neg. Advised pt that due to her having visible blood in her urine, she will need a cysto with possible UD. Discussed the risks and benefits of pos findings from the cysto. -Will schedule cysto w/UD. The risks and benefits for cystoscopy have been discussed. The risks include bleeding, infection, and irritation of the bladder and urinary channel, among others. The patient, after being informed of procedural details and after questions have been answered, wishes to proceed. Full informed consent has been obtained. Will order Local anesthesia. -Will send Keflex 500mg to pharm on file. Discussed the medication side effects, and the patient will monitor closely for these, as well as for symptom improvement. If severe side effects occur, the medication should be stopped and the office notified. 2. Frequency of urination (R35.0: Frequency of micturition) Pt states that she voids frequently, feels she does not empty completely, still has control of her bladder, and wakes up every once and a while during the night. Pt denies any infections in the past. Daughter states that when sh (more content not included)... Normal [facility] Comment on above: Result Comment: Elec tronically Signed By: Garcia TURNER MD\.br\Date and Time Signed: 05/20/23 14:29 EDT\.br\Electronically Co-Signed By: Moon Howell\.br\Date and Time Co-Signed: 05/20/23 14:28 EDT Basophils Auto (Bld) [#/Vol] Ordered By: Lety Flynn on 05-15-2023 Basophils (Bld) [#/Vol] 0.1 10*3/uL 0.0-0.2 [facility] Basophils/100 WBC Auto (Bld) Ordered By: Lety Flynn on 05-15-2023 Basophils/100 WBC (Bld) 0.6 % . [facility] Eosinophils Auto (Bld) [#/Vo l]Ordered By: Lety Flynn on 05-15-2023 Eosinophils (Bld) [#/Vol] 0.1 10*3/uL 0.0-0.45 [facility] Eosinophils/100 WBC Auto (Bl d)Ordered By: Lety Flynn on 05-15-2023 Eosinophils/100 WBC (Bld) 0.8 % . [facility] Erythrocyte distribution wid th Auto (RBC) [Ratio]Ordered By: Lety Flynn on 05-15-2023 Erythrocyte distribution width (RBC) [Ratio] 17.4 % 11.9-15.3 [facility] Hematocrit Auto (Bld) [Volum e fraction]Ordered By: Lety Flynn on 05-15-2023 Hematocrit (Bld) [Volume fraction] 32.0 % 34.0-46.4 [facility] Hemoglobin [Mass/volume] in BloodOrdered By: Lety Flynn on 05-15-2023 Hemoglobin (Bld) [Mass/Vol] 10.4 g/dL 11.8-15.4 [facility] Leukocytes [#/volume] correc tiffanie for nucleated erythrocytes in Blood by Automated counOrdered By: Lety Flynn on 05-15-2023 WBC corrected for nucl RBC Auto (Bld) [#/Vol] 8.2 10*3/uL 3.8-11.6 [facility] Lymphocytes Auto (Bld) [#/Vo l]Ordered By: Lety Flynn on 05-15-2023 Lymphocytes (Bld) [#/Vol] 1.1 10*3/uL 1.00-4.8 [facility] Lymphocytes/100 WBC Auto (Bl d)Ordered By: Lety Flynn on 05-15-2023 Lymphocytes/100 WBC (Bld) 13.3 % . [facility] MCH Auto (RBC) [Entitic mass ]Ordered By: Lety Flynn on 05-15-2023 MCH (RBC) [Entitic mass] 27.1 pg 24.7-34.3 [facility] MCHC Auto (RBC) [Mass/Vol]Or dered By: Lety Flynn on 05-15-2023 MCHC (RBC) [Mass/Vol] 32.6 g/dL 32.0-35.0 Fir [facility] MCV Auto (RBC) [Entitic vol] Ordered By: Lety Flynn on 05-15-2023 MCV (RBC) [Entitic vol] 83.1 fL 80-100 [facility] Monocytes Auto (Bld) [#/Vol] Ordered By: Lety Flynn on 05-15-2023 Monocytes (Bld) [#/Vol] 0.8 10*3/uL 0.0-0.8 [facility] Monocytes/100 WBC Auto (Bld) Ordered By: Lety Flynn on 05-15-2023 Monocytes/100 WBC (Bld) 9.2 % . F [facility] Neutrophils Auto (Bld) [#/Vo l]Ordered By: Lety Flynn on 05-15-2023 Neutrophils (Bld) [#/Vol] 6.3 10*3/uL 1.8-7.7 [facility] Neutrophils/100 WBC Auto (Bl d)Ordered By: Lety Flynn on 05-15-2023 Neutrophils/100 WBC (Bld) 76.1 % . [facility] Nucleated erythrocytes [Pres ence] in Blood by Automated countOrdered By: Lety Flynn on 05-15-2023 Nucleated RBC Auto Ql (Bld) 0.1 /100{WBC} 0-0.5 [facility] Platelet mean volume Auto (B ld) [Entitic vol]Ordered By: Lety Flynn on 05-15-2023 Platelet mean volume (Bld) [Entitic vol] 6.9 fL 6.3-10.7 [facility] Platelets Auto (Bld) [#/Vol] Ordered By: Lety Flynn on 05-15-2023 Platelets (Bld) [#/Vol] 577 10*3/uL 150-450 [facility] RBC Auto (Bld) [#/Vol]Ordere d By: Lety Flynn on 05-15-2023 RBC (Bld) [#/Vol] 3.85 10*6/uL 3.60-5.00 [facility] WBC Auto (Bld) [#/Vol]Ordere d By: Lety Flynn on 05-15-2023 WBC (Bld) [#/Vol] 8.2 10*3/uL 3.8-11.[address] [facility] Alanine aminotransferase [En zymatic activity/volume] in Serum or PlasmaOrdered By: Lety Flynn on 05-01-2023 ALT [Catalytic activity/Vol] 12 U/L 7-52 [facility] Albumin [Mass/volume] in Ser um or Plasma by Bromocresol green (BCG) dye binding methoOrdered By: Lety Flynn on 05-01-2023 Albumin BCG dye [Mass/Vol] 2.9 g/dL 3.5-5.7 [facility] Alkaline phosphatase [Enzyma tic activity/volume] in Serum or PlasmaOrdered By: Lety Flynn on 05-01-2023 ALP [Catalytic activity/Vol] 74 U/L 34-104 [facility] Aspartate aminotransferase [ Enzymatic activity/volume] in Serum or PlasmaOrdered By: Lety Flynn on 05-01-2023 AST [Catalytic activity/Vol] 19 U/L 13-39 [facility] Automated erythrocytes count in urine sediment (number/area)Ordered By: Lety Flynn on 05-01-2023 RBC Auto (Urine sed) [#/Area] 20-49 [HPF] 0-4 [facility] Automated leukocytes count i n urine sediment (number/area)Ordered By: Lety Flynn on 05-01-2023 WBC Auto (Urine sed) [#/Area] Innumerable [HPF] 0-4 [facility] Basophils Auto (Bld) [#/Vol] Ordered By: Lety Flynn on 05-01-2023 Basophils (Bld) [#/Vol] 0.1 10*3/uL 0.0-0.2 [facility] Basophils/100 WBC Auto (Bld) Ordered By: Lety Flynn on 05-01-2023 Basophils/100 WBC (Bld) 0.7 % . F [facility] Bilirubin Test strip Ql (U)O rdered By: Lety Flynn on 05-01-2023 Bilirubin Ql (U) Negative Negative [facility] Bilirubin.total [Mass/volume ] in Serum or PlasmaOrdered By: Lety Flynn on 05-01-2023 Bilirubin [Mass/Vol] 0.4 mg/dL 0.3-1.0 [facility] Calcium [Mass/volume] in Ser um or PlasmaOrdered By: Lety Flynn on 05-01-2023 Calcium [Mass/Vol] 9.0 mg/dL 8.6-10.[address] [facility] Carbon dioxide, total [Moles /volume] in Serum or PlasmaOrdered By: Lety Flnyn on 05-01-2023 CO2 [Moles/Vol] 27.8 mmol/L 21.0-31.0 [facility] Chloride [Moles/volume] in S asiya or PlasmaOrdered By: Lety Flynn on 05-01-2023 Chloride [Moles/Vol] 104 mmol/L 98-107 [facility] Color Auto (U)Ordered By: Virgilio Flynn on 05-01-2023 Color (U) Yellow Yellow [facility] Complete Blood Count Auto Di ffon 05-01-2023 Basophils (Bld) [#/Vol] [id number] 10*3/uL Normal 0.0-0.2 10*3/uL [facility] [employer] Other Basophils/100 WBC (Bld) 0.700 % . % [facility] [employer] Other Eosinophils (Bld) [#/Vol] 0.125914270 10*3/uL Normal 0.0-0.45 10*3/uL [employer] Other Eosinophils/100 WBC (Bld) 0.700 % . % [employer] Other Erythrocyte distribution width (RBC) [Ratio] 17.200 % High 11.9-15.3 % [employer] Other Hematocrit (Bld) [Volume fraction] 29.400 % Low 34.0-46.4 % [employer] Other Hemoglobin (Bld) [Mass/Vol] 9.141131 g/dL Low 11.8-15.4 g/dL [employer] Other Lymphocytes (Bld) [#/Vol] 0.811807659 10*3/uL Low 1.00-4.8 10*3/uL [employer] Other Lymphocytes/100 WBC (Bld) 10.300 % . % [employer] Other MCH (RBC) [Entitic mass] 27.1000 pg Normal 24.7-34.3 pg [employer] Other MCV (RBC) [Entitic vol] 84.5000 fL Normal 80-100 fL [facility] [employer] Other Monocytes (Bld) [#/Vol] 0.066729626 10*3/uL High 0.0-0.8 10*3/uL [employer] Other Monocytes/100 WBC (Bld) 11.000 % . % [facility] [employer] Other Neutrophils (Bld) [#/Vol] 6.677349887 10*3/uL Normal 1.8-7.7 10*3/uL [employer] Other Neutrophils/100 WBC (Bld) 77.300 % . % [employer] Other Platelet mean volume (Bld) [Entitic vol] 7.2000 fL Normal 6.3-10.7 fL [employer] Other WBC (Bld) [#/Vol] 8.587182444 10*3/uL Normal 3.8 -11.6 10*3/uL [employer] Other Complete Blood Count Auto Diff 8.6 10*3/uL Normal 3.8-11.6 10*3/uL [employer] Other Complete Blood Count Auto Diff 32.1 g/dL Normal 32.0-35.0 g/dL [employer] Other Complete Blood Count Auto Diff 0.0 /100{WBC} Normal 0-0.5 /100{WBC} [employer] Other Comprehensive Metabolic Pane norma 05-01-2023 Albumin [Mass/Vol] 2.389828 g/dL Low 3.5-5.7 g/dL [employer] Other Bilirubin [Mass/Vol] 0.8720996 mg/dL Normal 0.3- 1.0 mg/dL [employer] Other Calcium [Mass/Vol] 9.6429208 mg/dL Normal 8.6-10 .3 mg/dL [employer] Other CO2 [Moles/Vol] 27.89750556 mmol/L Normal 21.0-3 1.0 mmol/L [employer] Other Creatinine [Mass/Vol] 0.20636005 mg/dL Normal 0. 60-1.20 mg/dL [employer] Other GFR/1.73 sq M.predicted MDRD (S/P/Bld) [Vol rate/Area] mL/min/{1.73_m2} [employer] Other Potassium [Moles/Vol] 4.80896805 mmol/L Normal 3 .5-5.1 mmol/L [employer] Other Protein [Mass/Vol] 7.979540 g/dL Normal 6.4-8.9 g/dL [employer] Other Comprehensive Metabolic Panel 4.4 g/dL [employer] Other Creatinine [Mass/volume] in Serum or PlasmaOrdered By: Lety Flynn on 05-01-2023 Creatinine [Mass/Vol] 0.64 mg/dL 0.60-1.20 Fir [facility] Dipstick & Microscopicon Dipstick & Microscopic No [facility] [employer] Other ED Note-Physicianon 05-01-20 ED Note-Physician [id number]:1 27 Normal [facility] Eosinophils Auto (Bld) [#/Vo l]Ordered By: Lety Flynn on 05-01-2023 Eosinophils (Bld) [#/Vol] 0.1 10*3/uL 0.0-0.45 [facility] Eosinophils/100 WBC Auto (Bl d)Ordered By: Lety Flynn on 05-01-2023 Eosinophils/100 WBC (Bld) 0.7 % . [facility] Erythrocyte distribution wid th Auto (RBC) [Ratio]Ordered By: Lety Flynn on 05-01-2023 Erythrocyte distribution width (RBC) [Ratio] 17.2 % 11.9-15.3 [facility] Erythrocytes [#/volume] in B lood by Automated countOrdered By: Lety Flynn on 05-01-2023 RBC (Bld) [#/Vol] 3.47 10*6/uL 3.60-5.00 [facility] Globulin Calc (S) [Mass/Vol] Ordered By: Lety Flynn on 05-01-2023 Globulin (S) [Mass/Vol] 4.4 g/dL F [facility] Glucose [Mass/volume] in Ser um or PlasmaOrdered By: Lety Flynn on 05-01-2023 Glucose [Mass/Vol] 106 mg/dL 70-[address] [facility] Comment on above: ADA recommended refe rence rangeRandom Glucose Reference Range is dependent on time and content of last meal. Glucose of more than 200 mg/dL in a nonstressed, ambulatory subject supports the diagnosis of Diabetes Mellitus. Hematocrit Auto (Bld) [Volum e fraction]Ordered By: Lety Flynn on 05-01-2023 Hematocrit (Bld) [Volume fraction] 29.4 % 34.0-46.4 [facility] Hemoglobin [Mass/volume] in BloodOrdered By: Lety Flynn on 05-01-2023 Hemoglobin (Bld) [Mass/Vol] 9.4 g/dL 11.8-15.4 [facility] Ketones Auto test strip (U) [Mass/Vol]Ordered By: Lety Flynn on 05-01-2023 Ketones (U) [Mass/Vol] Negative Negative [facility] Laboratory - UrinalysisOrder ed By: Lety Flynn on 05-01-2023 Hyaline casts LM Ql (Urine sed) 0-8 [LPF] 0-8 [facility] Leukocytes [#/volume] correc tiffanie for nucleated erythrocytes in Blood by Automated counOrdered By: Lety Flynn on 05-01-2023 WBC corrected for nucl RBC Auto (Bld) [#/Vol] 8.6 10*3/uL 3.8-11.6 [facility] Lymphocytes Auto (Bld) [#/Vo l]Ordered By: Lety Flynn on 05-01-2023 Lymphocytes (Bld) [#/Vol] 0.9 10*3/uL 1.00-4.8 [facility] Lymphocytes/100 WBC Auto (Bl d)Ordered By: Lety Flynn on 05-01-2023 Lymphocytes/100 WBC (Bld) 10.3 % . [facility] MCH Auto (RBC) [Entitic mass ]Ordered By: Lety Flynn on 05-01-2023 MCH (RBC) [Entitic mass] 27.1 pg 24.7-34.3 [facility] MCHC Auto (RBC) [Mass/Vol]Or dered By: Lety Flynn on 05-01-2023 MCHC (RBC) [Mass/Vol] 32.1 g/dL 32.0-35.0 Fir [facility] MCV Auto (RBC) [Entitic vol] Ordered By: Lety Flynn on 05-01-2023 MCV (RBC) [Entitic vol] 84.5 fL 80-100 [facility] Monocytes Auto (Bld) [#/Vol] Ordered By: Lety Flynn on 05-01-2023 Monocytes (Bld) [#/Vol] 0.9 10*3/uL 0.0-0.8 [facility] Monocytes/100 WBC Auto (Bld) Ordered By: Lety Flynn on 05-01-2023 Monocytes/100 WBC (Bld) 11.0 % . F [facility] Neutrophils Auto (Bld) [#/Vo l]Ordered By: Lety Flynn on 05-01-2023 Neutrophils (Bld) [#/Vol] 6.6 10*3/uL 1.8-7.7 [facility] Neutrophils/100 WBC Auto (Bl d)Ordered By: Lety Flynn on 05-01-2023 Neutrophils/100 WBC (Bld) 77.3 % . [facility] Nitrite Test strip Ql (U)Ord ered By: Lety Flynn on 05-01-2023 Nitrite Ql (U) Negative Negative [facility] No Panel InformationOrdered By: Lety Flynn on 05-01-2023 Estimated GFR (CKD-EPI) > 60.0 mL/Min [facility] Creatinine Clearance (Chem N/A [facility] Nucleated erythrocytes [Pres ence] in Blood by Automated countOrdered By: Lety Flynn on 05-01-2023 Nucleated RBC Auto Ql (Bld) 0.0 /100{WBC} 0-0.5 [facility] Platelet mean volume Auto (B ld) [Entitic vol]Ordered By: Lety Flynn on 05-01-2023 Platelet mean volume (Bld) [Entitic vol] 7.2 fL 6.3-10.7 [facility] Platelets [#/volume] in Bloo d by Automated countOrdered By: Lety Flynn on 05-01-2023 Platelets (Bld) [#/Vol] 589 10*3/uL 150-450 [facility] Potassium [Moles/volume] in Serum or PlasmaOrdered By: Lety Flynn on 05-01-2023 Potassium [Moles/Vol] 4.0 mmol/L 3.5-5.1 [facility] Protein Auto test strip (U) [Mass/Vol]Ordered By: Lety Flynn on 05-01-2023 Protein (U) [Mass/Vol] 30 mg/dL Negative [facility] Protein [Mass/volume] in Ser um or PlasmaOrdered By: Lety Flynn on 05-01-2023 Protein [Mass/Vol] 7.3 g/dL 6.4-8.[address] [facility] Serum or plasma albumin/glob ulin mass ratioOrdered By: Lety Flynn on 05-01-2023 Albumin/Globulin [Mass ratio] 0.7 {ratio} [facility] Serum or plasma anion gap de terminationOrdered By: Lety Flynn on 05-01-2023 Anion gap [Moles/Vol] 8.2 mmol/L 6.0-15.0 [facility] Sodium [Moles/volume] in Ser um or PlasmaOrdered By: Lety Flynn on 05-01-2023 Sodium [Moles/Vol] 136 mmol/L 136-[address] [facility] Specific gravity Auto test s trip (U) [Rel density]Ordered By: Lety Flynn on 05-01-2023 Specific gravity (U) [Rel density] 1.017 1.001-1.03 0 [facility] Squamous epithelial cells de tection in urine sediment by light microscopyOrdered By: Lety Flynn on 05-01-2023 Epithelial cells.squamous LM Ql (Urine sed) 5-9 [HPF] 0-2 [facility] Urea nitrogen [Mass/volume] in Serum or PlasmaOrdered By: Lety Flynn on 05-01-2023 Urea nitrogen [Mass/Vol] 18 mg/dL 7-25 [facility] Urine Cultureon 05-01-2023 Bacteria identified Cx Nom (U) [employer] Other Urine bacteria detection by automated methodOrdered By: Lety Flynn on 05-01-2023 Bacteria Auto Ql (U) 1+ None Seen [facility] Urine clarity by refractomet ry automatedOrdered By: Lety Flynn on 05-01-2023 Clarity Refractometry automated (U) Turbid Clear [facility] Urine culture routineOrdered By: Lety Flynn on 05-01-2023 Bacteria identified Cx Nom (U) 2 Days [facility] Bacteria identified Cx Nom (U) 2 Days [facility] Urine glucose measurement by automated test strip (mass/volume)Ordered By: Lety Flynn on 05-01-2023 Glucose Auto test strip (U) [Mass/Vol] Normal mg/dL Normal [facility] Urine hemoglobin detection b y automated test stripOrdered By: Lety Flynn on 05-01-2023 Hemoglobin Auto test strip Ql (U) 2+ Negative [facility] Urine leukocyte esterase det ection by automated test stripOrdered By: Lety Flynn on 05-01-2023 Leukocyte esterase Auto test strip Ql (U) 4+ Negative [facility] Urobilinogen Auto test strip (U) [Mass/Vol]Ordered By: Lety Flynn on 05-01-2023 Urobilinogen (U) [Mass/Vol] Normal mg/dL Normal [facility] WBC Auto (Bld) [#/Vol]Ordere d By: Lety Flynn on 05-01-2023 WBC (Bld) [#/Vol] 8.6 10*3/uL 3.8-11.[address] [facility] pH Auto test strip (U)Ordere d By: Lety Flynn on 05-01-2023 pH (U) 7.0 [pH] 5.0-9.0 [facility] Activated partial thrombopla stin time (aPTT) in platelet poor plasma by coagulation aOrdered By: Lety Flynn on 04-16-2023 aPTT Coag (PPP) [Time] 35.4 s 25.1-36.5 [facility] Comment on above: A hematocrit value g reater than 55% may lead to inaccurate results in coagulation testing. Patients having hematocrit values >55% require a special collection tube for coagulation studies. Please contact the laboratory at [phone] for redraw instructions. Alanine aminotransferase [En zymatic activity/volume] in Serum or PlasmaOrdered By: Lety Flynn on 04-16-2023 ALT [Catalytic activity/Vol] 16 U/L 7-52 [facility] Albumin [Mass/volume] in Ser um or Plasma by Bromocresol green (BCG) dye binding methoOrdered By: Lety Flynn on 04-16-2023 Albumin BCG dye [Mass/Vol] 2.9 g/dL 3.5-5.7 [facility] Alkaline phosphatase [Enzyma tic activity/volume] in Serum or PlasmaOrdered By: Lety Flynn on 04-16-2023 ALP [Catalytic activity/Vol] 108 U/L 34-104 [facility] Aspartate aminotransferase [ Enzymatic activity/volume] in Serum or PlasmaOrdered By: Lety Flynn on 04-16-2023 AST [Catalytic activity/Vol] 19 U/L 13-39 [facility] Basophils Auto (Bld) [#/Vol] Ordered By: Lety Flynn on 04-16-2023 Basophils (Bld) [#/Vol] 0.1 10*3/uL 0.0-0.2 [facility] Basophils/100 WBC Auto (Bld) Ordered By: Lety Flynn on 04-16-2023 Basophils/100 WBC (Bld) 0.8 % . F [facility] Bilirubin.total [Mass/volume ] in Serum or PlasmaOrdered By: Lety Flynn on 04-16-2023 Bilirubin [Mass/Vol] 0.4 mg/dL 0.3-1.0 [facility] Calcium [Mass/volume] in Ser um or PlasmaOrdered By: Lety Flynn on 04-16-2023 Calcium [Mass/Vol] 9.1 mg/dL 8.6-10.[address] [facility] Carbon dioxide, total [Moles /volume] in Serum or PlasmaOrdered By: Lety Flynn on 04-16-2023 CO2 [Moles/Vol] 27.8 mmol/L 21.0-31.0 [facility] Chloride [Moles/volume] in S asiya or PlasmaOrdered By: Lety Flynn on 04-16-2023 Chloride [Moles/Vol] 95 mmol/L 98-107 [facility] Creatinine [Mass/volume] in Serum or PlasmaOrdered By: Lety Flynn on 04-16-2023 Creatinine [Mass/Vol] 0.83 mg/dL 0.60-1.20 [facility] Eosinophils Auto (Bld) [#/Vo l]Ordered By: Lety Flynn on 04-16-2023 Eosinophils (Bld) [#/Vol] 0.0 10*3/uL 0.0-0.45 [facility] Eosinophils/100 WBC Auto (Bl d)Ordered By: Lety Flynn on 04-16-2023 Eosinophils/100 WBC (Bld) 0.1 % . [facility] Erythrocyte distribution wid th Auto (RBC) [Ratio]Ordered By: Lety Flynn on 04-16-2023 Erythrocyte distribution width (RBC) [Ratio] 16.5 % 11.9-15.3 [facility] Globulin Calc (S) [Mass/Vol] Ordered By: Lety Flynn on 04-16-2023 Globulin (S) [Mass/Vol] 4.4 g/dL [facility] Glucose [Mass/volume] in Ser um or PlasmaOrdered By: Lety Flynn on 04-16-2023 Glucose [Mass/Vol] 135 mg/dL 70-[address] [facility] Comment on above: ADA recommended refe rence rangeRandom Glucose Reference Range is dependent on time and content of last meal. Glucose of more than 200 mg/dL in a nonstressed, ambulatory subject supports the diagnosis of Diabetes Mellitus. Hematocrit Auto (Bld) [Volum e fraction]Ordered By: Lety Flynn on 04-16-2023 Hematocrit (Bld) [Volume fraction] 31.3 % 34.0-46.4 [facility] Hemoglobin [Mass/volume] in BloodOrdered By: Lety Flynn on 04-16-2023 Hemoglobin (Bld) [Mass/Vol] 10.2 g/dL 11.8-15.4 [facility] INR in Platelet poor plasma by Coagulation assayOrdered By: Lety Flynn on 04-16-2023 INR Coag (PPP) [Relative time] 2.2 {INR} [facility] Comment on above: INR Therapeutic Rang e A) Pre- and Peroperative OAT started two weeks before surgery. NOT HIP SURGERY: 1.5 - 2.5 HIP SURGERY: 2 - 3B) Primary and secondary prevention of venous THROMBOSIS: 2 - 3C) Active venous thrombosis, pulmonary embolismand prevention of recurrent venous thrombosis: 2 - 3D) Prevention of arterial thromboembolismincluding patients with mechanical heart valves: 3 - 4.5 Leukocytes [#/volume] correc tiffanie for nucleated erythrocytes in Blood by Automated counOrdered By: Lety Flynn on 04-16-2023 WBC corrected for nucl RBC Auto (Bld) [#/Vol] 10.6 10*3/uL 3.8-11.6 [facility] Lymphocytes Auto (Bld) [#/Vo l]Ordered By: Lety Flynn on 04-16-2023 Lymphocytes (Bld) [#/Vol] 1.0 10*3/uL 1.00-4.8 [facility] Lymphocytes/100 WBC Auto (Bl d)Ordered By: Lety Flynn on 04-16-2023 Lymphocytes/100 WBC (Bld) 9.1 % . [facility] MCH Auto (RBC) [Entitic mass ]Ordered By: Lety Flynn on 04-16-2023 MCH (RBC) [Entitic mass] 27.9 pg 24.7-34.3 [facility] MCHC Auto (RBC) [Mass/Vol]Or dered By: Lety Flynn on 04-16-2023 MCHC (RBC) [Mass/Vol] 32.5 g/dL 32.0-35.0 [facility] MCV Auto (RBC) [Entitic vol] Ordered By: Lety Flynn on 04-16-2023 MCV (RBC) [Entitic vol] 85.9 fL 80-100 [facility] Monocytes Auto (Bld) [#/Vol] Ordered By: Lety Flynn on 04-16-2023 Monocytes (Bld) [#/Vol] 0.8 10*3/uL 0.0-0.8 [facility] Monocytes/100 WBC Auto (Bld) Ordered By: Lety Flynn on 04-16-2023 Monocytes/100 WBC (Bld) 8.0 % . [facility] Neutrophils Auto (Bld) [#/Vo l]Ordered By: Lety Flynn on 04-16-2023 Neutrophils (Bld) [#/Vol] 8.7 10*3/uL 1.8-7.7 [facility] Neutrophils/100 WBC Auto (Bl d)Ordered By: Lety Flynn on 04-16-2023 Neutrophils/100 WBC (Bld) 82.0 % . [facility] No Panel InformationOrdered By: Lety Flynn on 04-16-2023 Estimated GFR (CKD-EPI) > 60.0 mL/Min [facility] Creatinine Clearance (Chem N/A [facility] Nucleated erythrocytes [Pres ence] in Blood by Automated countOrdered By: Lety Flynn on 04-16-2023 Nucleated RBC Auto Ql (Bld) 0.0 /100{WBC} 0-0.5 [facility] Platelet mean volume Auto (B ld) [Entitic vol]Ordered By: Lety Flynn on 04-16-2023 Platelet mean volume (Bld) [Entitic vol] 7.1 fL 6.3-10.7 [facility] Platelets Auto (Bld) [#/Vol] Ordered By: Lety Flynn on 04-16-2023 Platelets (Bld) [#/Vol] 554 10*3/uL 150-450 [facility] Potassium [Moles/volume] in Serum or PlasmaOrdered By: Lety Flynn on 04-16-2023 Potassium [Moles/Vol] 3.7 mmol/L 3.5-5.1 [facility] Protein [Mass/volume] in Ser um or PlasmaOrdered By: Ltey Flynn on 04-16-2023 Protein [Mass/Vol] 7.3 g/dL 6.4-8.[address] [facility] Prothrombin time (PT)Ordered By: Lety Flynn on 04-16-2023 PT Coag (PPP) [Time] 26.5 s 9.0-12.9 [facility] Comment on above: A hematocrit value g reater than 55% may lead to inaccurate results in coagulation testing. Patients having hematocrit values >55% require a special collection tube for coagulation studies. Please contact the laboratory at [phone] for redraw instructions. RBC Auto (Bld) [#/Vol]Ordere d By: Lety Flynn on 04-16-2023 RBC (Bld) [#/Vol] 3.65 10*6/uL 3.60-5.00 [facility] Serum or plasma albumin/glob ulin mass ratioOrdered By: Lety Flynn on 04-16-2023 Albumin/Globulin [Mass ratio] 0.7 {ratio} [facility] Serum or plasma anion gap de terminationOrdered By: Lety Flynn on 04-16-2023 Anion gap [Moles/Vol] 11.9 mmol/L 6.0-15.0 [facility] Sodium [Moles/volume] in Ser um or PlasmaOrdered By: Lety Flynn on 04-16-2023 Sodium [Moles/Vol] 131 mmol/L 136-[address] [facility] Urea nitrogen [Mass/volume] in Serum or PlasmaOrdered By: Lety Flynn on 04-16-2023 Urea nitrogen [Mass/Vol] 17 mg/dL 7-25 [facility] WBC Auto (Bld) [#/Vol]Ordere d By: Lety Flynn on 04-16-2023 WBC (Bld) [#/Vol] 10.6 10*3/uL 3.8-11.6 [facility] Activated partial thrombopla stin time (aPTT) in platelet poor plasma by coagulation aOrdered By: Pamela Valenzuela on 04-12-2023 aPTT Coag (PPP) [Time] 33.5 s 25.1-36.5 [facility] Comment on above: A hematocrit value g reater than 55% may lead to inaccurate results in coagulation testing. Patients having hematocrit values >55% require a special collection tube for coagulation studies. Please contact the laboratory at [phone] for redraw instructions. Alanine aminotransferase [En zymatic activity/volume] in Serum or PlasmaOrdered By: Pamela Valenzuela on 04-12-2023 ALT [Catalytic activity/Vol] 20 U/L 7-52 [facility] Albumin [Mass/volume] in Ser um or Plasma by Bromocresol green (BCG) dye binding methoOrdered By: Pamela Valenzuela on 04-12-2023 Albumin BCG dye [Mass/Vol] 3.1 g/dL 3.5-5.7 [facility] Alkaline phosphatase [Enzyma tic activity/volume] in Serum or PlasmaOrdered By: Pamela Valenzuela on 04-12-2023 ALP [Catalytic activity/Vol] 116 U/L 34-104 [facility] Aspartate aminotransferase [ Enzymatic activity/volume] in Serum or PlasmaOrdered By: Pamela Valenzuela on 04-12-2023 AST [Catalytic activity/Vol] 20 U/L 13-39 [facility] Automated erythrocytes count in urine sediment (number/area)Ordered By: Pamela Valenzuela on 04-12-2023 RBC Auto (Urine sed) [#/Area] Innumerable [HPF] 0-4 [facility] Automated leukocytes count i n urine sediment (number/area)Ordered By: Pamela Valenzuela on 04-12-2023 WBC Auto (Urine sed) [#/Area] Innumerable [HPF] 0-4 [facility] Basophils Auto (Bld) [#/Vol] Ordered By: Pamela Valenzuela on 04-12-2023 Basophils (Bld) [#/Vol] 0.1 10*3/uL 0.0-0.2 [facility] Basophils/100 WBC Auto (Bld) Ordered By: Pamela Valenzuela on 04-12-2023 Basophils/100 WBC (Bld) 0.6 % . [facility] Bilirubin Test strip Ql (U)O rdered By: Pamela Valenzuela on 04-12-2023 Bilirubin Ql (U) Negative Negative [facility] Bilirubin.total [Mass/volume ] in Serum or PlasmaOrdered By: Pamela Valenzuela on 04-12-2023 Bilirubin [Mass/Vol] 0.5 mg/dL 0.3-1.0 [facility] Calcium [Mass/volume] in Ser um or PlasmaOrdered By: Pamela Valenzuela on 04-12-2023 Calcium [Mass/Vol] 9.3 mg/dL 8.6-10.[address] [facility] Carbon dioxide, total [Moles /volume] in Serum or PlasmaOrdered By: Pamela Valenzuela on 04-12-2023 CO2 [Moles/Vol] 28.1 mmol/L 21.0-31.0 [facility] Chloride [Moles/volume] in S asiya or PlasmaOrdered By: Pamela Valenzuela on 04-12-2023 Chloride [Moles/Vol] 97 mmol/L 98-107 [facility] Color Auto (U)Ordered By: Alana Valenzuela on 04-12-2023 Color (U) Red Yellow [facility] Creatinine [Mass/volume] in Serum or PlasmaOrdered By: Pamela Valenzuela on 04-12-2023 Creatinine [Mass/Vol] 0.85 mg/dL 0.60-1.20 [facility] Eosinophils Auto (Bld) [#/Vo l]Ordered By: Pamela Valenzuela on 04-12-2023 Eosinophils (Bld) [#/Vol] 0.0 10*3/uL 0.0-0.45 [facility] Eosinophils/100 WBC Auto (Bl d)Ordered By: Pamela Valenzuela on 04-12-2023 Eosinophils/100 WBC (Bld) 0.5 % . [facility] Erythrocyte distribution wid th Auto (RBC) [Ratio]Ordered By: Pamela Valenzuela on 04-12-2023 Erythrocyte distribution width (RBC) [Ratio] 15.9 % 11.9-15.3 [facility] Globulin Calc (S) [Mass/Vol] Ordered By: Pamela Valenzuela on 04-12-2023 Globulin (S) [Mass/Vol] 5.3 g/dL [facility] Glucose [Mass/volume] in Ser um or PlasmaOrdered By: Pamela Valenzuela on 04-12-2023 Glucose [Mass/Vol] 101 mg/dL 70-[address] [facility] Comment on above: ADA recommended refe rence rangeRandom Glucose Reference Range is dependent on time and content of last meal. Glucose of more than 200 mg/dL in a nonstressed, ambulatory subject supports the diagnosis of Diabetes Mellitus. Hematocrit Auto (Bld) [Volum e fraction]Ordered By: Pamela Valenzuela on 04-12-2023 Hematocrit (Bld) [Volume fraction] 32.9 % 34.0-46.4 [facility] Hemoglobin [Mass/volume] in BloodOrdered By: Pamela Valenzuela on 04-12-2023 Hemoglobin (Bld) [Mass/Vol] 10.8 g/dL 11.8-15.4 [facility] INR in Platelet poor plasma by Coagulation assayOrdered By: aPmela Valenzuela on 04-12-2023 INR Coag (PPP) [Relative time] 1.8 {INR} [facility] Comment on above: INR Therapeutic Rang e A) Pre- and Peroperative OAT started two weeks before surgery. NOT HIP SURGERY: 1.5 - 2.5 HIP SURGERY: 2 - 3B) Primary and secondary prevention of venous THROMBOSIS: 2 - 3C) Active venous thrombosis, pulmonary embolismand prevention of recurrent venous thrombosis: 2 - 3D) Prevention of arterial thromboembolismincluding patients with mechanical heart valves: 3 - 4.5 Ketones Auto test strip (U) [Mass/Vol]Ordered By: Pamela Valenzuela on 04-12-2023 Ketones (U) [Mass/Vol] Negative Negative [facility] Laboratory - UrinalysisOrder ed By: Pamela Valenzuela on 04-12-2023 Hyaline casts LM Ql (Urine sed) 0-8 [LPF] 0-8 [facility] Leukocytes [#/volume] correc tiffanie for nucleated erythrocytes in Blood by Automated counOrdered By: Pamela Valenzuela on 04-12-2023 WBC corrected for nucl RBC Auto (Bld) [#/Vol] 9.1 10*3/uL 3.8-11.6 [facility] Lymphocytes Auto (Bld) [#/Vo l]Ordered By: Pamela Valenzuela on 04-12-2023 Lymphocytes (Bld) [#/Vol] 1.4 10*3/uL 1.00-4.8 [facility] Lymphocytes/100 WBC Auto (Bl d)Ordered By: Pamela Valenzuela on 04-12-2023 Lymphocytes/100 WBC (Bld) 15.2 % . [facility] MCH Auto (RBC) [Entitic mass ]Ordered By: Pamela Valenzuela on 04-12-2023 MCH (RBC) [Entitic mass] 27.9 pg 24.7-34.3 [facility] MCHC Auto (RBC) [Mass/Vol]Or dered By: Pamela Valenzuela on 04-12-2023 MCHC (RBC) [Mass/Vol] 32.7 g/dL 32.0-35.0 Fir [facility] MCV Auto (RBC) [Entitic vol] Ordered By: Pamela Valenzuela on 04-12-2023 MCV (RBC) [Entitic vol] 85.3 fL 80-100 [facility] Monocyte distribution width [Entitic volume] in Blood by AutomatedOrdered By: Pamela Valenzuela on 04-12-2023 Monocyte distribution width Auto (Bld) [Entitic vol] 20.52 % 0.00-20.00 [facility] Comment on above: For adults in ED, MD W > 20.0 may be associated with a higher risk of sepsis during the first 12 hrs of hospital admission Monocytes Auto (Bld) [#/Vol] Ordered By: Pamela Valenzuela on 04-12-2023 Monocytes (Bld) [#/Vol] 0.7 10*3/uL 0.0-0.8 [facility] Monocytes/100 WBC Auto (Bld) Ordered By: Pamela Valenzuela on 04-12-2023 Monocytes/100 WBC (Bld) 8.2 % . [facility] Natriuretic peptide B [Mass/ Vol]Ordered By: Pamela Valenzuela on 04-12-2023 Natriuretic peptide B (Bld) [Mass/Vol] 43.0 pg/mL 5-100 [facility] Neutrophils Auto (Bld) [#/Vo l]Ordered By: Pamela Valenzuela on 04-12-2023 Neutrophils (Bld) [#/Vol] 6.8 10*3/uL 1.8-7.7 [facility] Neutrophils/100 WBC Auto (Bl d)Ordered By: Pamela Valenzuela on 04-12-2023 Neutrophils/100 WBC (Bld) 75.5 % . [facility] Nitrite Test strip Ql (U)Ord ered By: Pamela Valenzuela on 04-12-2023 Nitrite Ql (U) Negative Negative [facility] No Panel InformationOrdered By: Pamela Valenzuela on 04-12-2023 Estimated GFR (CKD-EPI) > 60.0 mL/Min [facility] Creatinine Clearance (Chem 49.87 [facility] Nucleated erythrocytes [Pres ence] in Blood by Automated countOrdered By: Pamela Valenzuela on 04-12-2023 Nucleated RBC Auto Ql (Bld) 0.1 /100{WBC} 0-0.5 [facility] Platelet mean volume Auto (B ld) [Entitic vol]Ordered By: Pamela Valenzuela on 04-12-2023 Platelet mean volume (Bld) [Entitic vol] 6.6 fL 6.3-10.7 [facility] Platelets Auto (Bld) [#/Vol] Ordered By: Pamela Valenzuela on 04-12-2023 Platelets (Bld) [#/Vol] 488 10*3/uL 150-450 [facility] Potassium [Moles/volume] in Serum or PlasmaOrdered By: Pamela Valenzuela on 04-12-2023 Potassium [Moles/Vol] 3.6 mmol/L 3.5-5.1 [facility] Protein Auto test strip (U) [Mass/Vol]Ordered By: Pamela Valenzuela on 04-12-2023 Protein (U) [Mass/Vol] 30 mg/dL Negative [facility] Protein [Mass/volume] in Ser um or PlasmaOrdered By: Pamela Valenzuela on 04-12-2023 Protein [Mass/Vol] 8.4 g/dL 6.4-8.[address] [facility] Prothrombin time (PT)Ordered By: Pamela Valenzuela on 04-12-2023 PT Coag (PPP) [Time] 21.2 s 9.0-12.9 [facility] Comment on above: A hematocrit value g reater than 55% may lead to inaccurate results in coagulation testing. Patients having hematocrit values >55% require a special collection tube for coagulation studies. Please contact the laboratory at [phone] for redraw instructions. RBC Auto (Bld) [#/Vol]Ordere d By: Pamela Valenzuela on 04-12-2023 RBC (Bld) [#/Vol] 3.86 10*6/uL 3.60-5.00 [facility] Serum or plasma albumin/glob ulin mass ratioOrdered By: Pamela Valenzuela on 04-12-2023 Albumin/Globulin [Mass ratio] 0.6 {ratio} [facility] Serum or plasma anion gap de terminationOrdered By: Pamela Valenzuela on 04-12-2023 Anion gap [Moles/Vol] 12.5 mmol/L 6.0-15.0 [facility] Sodium [Moles/volume] in Ser um or PlasmaOrdered By: Pamela Valenzuela on 04-12-2023 Sodium [Moles/Vol] 134 mmol/L 136-[address] [facility] Specific gravity Auto test s trip (U) [Rel density]Ordered By: Pamela Valenzuela on 04-12-2023 Specific gravity (U) [Rel density] > 1.050 1.001-1.03 0 [facility] Squamous epithelial cells de tection in urine sediment by light microscopyOrdered By: Pamela Valenzuela on 04-12-2023 Epithelial cells.squamous LM Ql (Urine sed) 0-1 [HPF] 0-2 [facility] Troponin I.cardiac [Mass/vol ume] in Serum or Plasma by Detection limit <= 0.01 ng/Ordered By: Pamela Valenzuela on 04-12-2023 Troponin I.cardiac DL <= 0.01 ng/mL [Mass/Vol] 6.2 pg/mL 0.0-15.0 [facility] Urea nitrogen [Mass/volume] in Serum or PlasmaOrdered By: Pamela Valenzuela on 04-12-2023 Urea nitrogen [Mass/Vol] 20 mg/dL 7-25 [facility] Urine bacteria detection by automated methodOrdered By: Pamela Valenzuela 04-12-2023 Bacteria Auto Ql (U) 2+ None Seen [facility] Urine clarity by refractomet ry automatedOrdered By: Pamela Valenzuela on 04-12-2023 Clarity Refractometry automated (U) Turbid Clear [facility] Urine culture routineOrdered By: Pamela Valenzuela on 04-12-2023 Bacteria identified Cx Nom (U) 2 Days [facility] Urine glucose measurement by automated test strip (mass/volume)Ordered By: Pamela Valenzuela on 04-12-2023 Glucose Auto test strip (U) [Mass/Vol] Normal mg/dL Normal [facility] Urine hemoglobin detection b y automated test stripOrdered By: Pamela Valenzuela on 04-12-2023 Hemoglobin Auto test strip Ql (U) 3+ Negative [facility] Urine leukocyte esterase det ection by automated test stripOrdered By: Pamela Valenzuela on 04-12-2023 Leukocyte esterase Auto test strip Ql (U) 4+ Negative [facility] Urobilinogen Auto test strip (U) [Mass/Vol]Ordered By: Pamela Valenzuela on 04-12-2023 Urobilinogen (U) [Mass/Vol] Normal mg/dL Normal [facility] WBC Auto (Bld) [#/Vol]Ordere d By: Pamela Valenzuela on 04-12-2023 WBC (Bld) [#/Vol] 9.1 10*3/uL 3.8-11.[address] [facility] Yeast detection in urine sed iment by light microscopyOrdered By: Pamela Valenzuela on 04-12-2023 Yeast LM Ql (Urine sed) None seen [HPF] None Se en [facility] pH Auto test strip (U)Ordere d By: Pamela Valenzuela on 04-12-2023 pH (U) 7.5 [pH] 5.0-9.0 [facility] A1C HEMOGLOBINon 01-03-2023 HbA1c (Bld) [Mass fraction] 5.6 % [employer] Other HbA1c (Bld) [Mass fraction]o n 01-03-2023 A1C HEMOGLOBIN [employer] Other STR cardiac stress/lexiscano n 09-14-2022 STR cardiac stress/lexiscan [facility] [employer] Other STR cardiac stress/lexiscan [facility] [employer] Other STR cardiac stress/lexiscan [address] [facility] [employer] Other STR cardiac stress/[place] [id number] [employer] Other STR cardiac stress/lexiscan Cardiac Stress Test [employer] Other STR cardiac stress/lexiscan Signed [employer] Other STR cardiac stress/lexiscan Patient: Jose Kim MR#: [id number] [employer] Other STR cardiac stress/lexiscan 6 [employer] Other STR cardiac stress/lexiscan : 1945 Acct:[id number] [employer] Other STR cardiac stress/lexiscan Age/Sex: 77 / F ADM Date: 09/14/22 [employer] Other STR cardiac stress/lexiscan Loc: [place] Room: Type: [facility] [employer] Other STR cardiac stress/lexiscan Attending Dr: Lety Flynn [facility] [employer] Other STR cardiac stress/lexiscan Copies to: Elsy Dumas MD, [facility] [employer] Other STR cardiac stress/lexiscan [email or web address] Other STR cardiac stress/lexiscan Ordering Provider: Lety Flynn [facility] [employer] Other STR cardiac stress/lexiscan Date of Service: 09/14/22 [employer] Other STR cardiac stress/lexiscan STR/STR cardiac stress/lexiscan: Shortness of breath;Irregular heart [employer] Other STR cardiac stress/lexiscan rhythm [employer] Other STR cardiac stress/lexiscan ORDERED BY: Lety Flynn DNP [employer] Other STR cardiac stress/lexiscan INDICATION: A 77-year-old patient with dyspnea on exertion. [employer] Other STR cardiac stress/lexiscan Resting ECG revealed sinus rhythm, heart rate 62 beats per minute. Resting blood pressure 145/75 [employer] Other STR cardiac stress/lexiscan mmHg. [employer] Other STR cardiac stress/lexiscan Following intravenous administration of 400 mcg of Lexiscan over 10 seconds, no ischemic EKG changes [employer] Other STR cardiac stress/lexiscan were noted. No chest pain was reported by the patient and no significant cardiac arrhythmias were [employer] Other STR cardiac stress/lexiscan seen. [employer] Other STR cardiac stress/lexiscan CONCLUSION: [employer] Other STR cardiac stress/lexiscan 1. No Lexiscan-induced ischemic EKG changes, chest pain or cardiac arrhythmias. [employer] Other STR cardiac stress/lexiscan 2. Cardiolite studies to be reported separately by Nuclear Cardiology. [employer] Other STR cardiac stress/lexiscan Transcribed By: NTS 09/15/22 1728 [employer] Other STR cardiac stress/lexiscan Dictated By: Elsy Dumas MD, [facility] 09/14/22 1629 [employer] Other STR cardiac stress/lexiscan Signed By: [employer] Other STR cardiac stress/lexiscan 09/17/22 0853 [employer] Other [facility] echo transthoracicon ECH echo transthoracic Echocardiogram [employer] Other ECH echo transthoracic [facility]: [facility] [employer] Other ECH echo transthoracic Date of Service: 09/07/2210/25/844 [employer] Other E[facility] echo transthoracic ECH/ECH echo transthoracic: Shortness of breath [employer] Other ECH echo transthoracic Copies to: Elsy Dumas MD, [facility] [employer] Other ECH echo transthoracic Lety Flynn, [facility] [employer] Other [facility] [employer]sthoracic BSA: 1.7 m2 BP: 1 38/74 mmHg [employer] Other [facility] [employer] HR: 89 No rt [employer] Other ECH echo transthoracic Reason For Study: Shortness of breath [employer] Other [facility] echo transthoracic History: COPD,For jordana smoker [employer] Other [facility] echo transthoracic Interpretation Summary [employer] Other ECH echo transthoracic The left ventricu lar size and thickness are normal. [employer] Other [facility] [employer]sthoracic Ejection Fraction = 55-60%. [employer] Other ECH echo transthoracic There is no prior echocardiogram noted for this patient. [employer] Other [facility] [employer] transthoracic flow and Doppler was performed. The study was technically good in quality. [employer] Other [facility] [employer]sthor[employer] Left Ventricle: T he left ventricular size and thickness are normal. Ejection [employer] Other [facility] echo transthoracic Fraction = 55-60%. [employer] Other [facility] [employer]sthoracic Left Atrium: The left atrium appears normal in size. The atrial septum [employer] Other E[facility] echo transthoracic appears normal. [employer] Other [facility] echo transthoracic Right Atrium: The right atrium appears normal in size. [employer] Other [facility] echo transthoracic Right Ventricle: The right ventricular size, thickness and function are [employer] Other E[facility] echo transthoracic normal. No rt [employer] Other E[facility] echo transthoracic Aortic Valve: The aortic valve is normal in structure and function. [employer] Other [facility]sthoracic Mitral Valve: The mitral valve is normal in structure and function. [employer] Other [facility]sthoracic Tricuspid Valve: The tricuspid valve is normal. There is trace tricuspid [employer] Other [facility] echo transthoracic regurgitation. [employer] Other E[facility] echo transthoracic Pulmonic Valve: T he pulmonic valve is not well seen, but is grossly normal. [employer] Other [facility] echo transthoracic Arteries: The aor tic root is normal size. [employer] Other [facility] transthoracic Pericardium/Pleur a: No pericardial effusion seen. There is no pleural [employer] Other [facility] echo transthoracic effusion. No rt [employer] Other [facility] echo transthoracic IVC/Hepatic Viens : The IVC is normal in size with an inspiratory collapse of [employer] Other [facility] echo transthoracic greater then 50%, suggesting normal right atrial pressure. [employer] Other [facility] echo transthoracic Miscellaneous: No thrombus, vegetation or mass is seen. [employer] Other [facility] echo transthoracic Measurements with Normals [employer] Assocites Other [facility] echo transthoracic IVSd: 0.71 cm (0. 7-1.1 cm)LVIDd: 5.0 cm (3.7-5.4 cm) [employer] Other [facility] echo transthoracic LVPWd: 0.70 cm (0 .7-1.1 cm)LVIDs: 3.2 cm (2.3-3.6 cm) [employer] Other [facility] echo transthoracic LA dimension: 3.8 cm(2.3-4.0 cm)Ao root diam: 2.8 cm(2.0-3.6 cm) [employer] Other [facility] echo transthoracic Doppler with Normals [employer] Other [facility] echo transthoracic RVSP(TR): 39.4 mm Hg (18-35mmHg) [employer] Other [facility] echo transthoracic MV E max phu: 71. 1 cm/sec(0.8-1.3m/s) [employer] Other [facility] echo transthoracic MV A max phu: 61. 3 cm/sec(0.0-0.0m/s) [employer] Other [facility] echo transthoracic MV E/A: 1.2 (<1.5) [employer] Other [facility] echo transthoracic MMode/2D Measurem ents Calculations [employer] Other [facility] echo transthoracic RVDd: 2.3 cm FS: 36.6 % Ao root area: 6.1 cm2 [employer] Other [facility] echo transthoracic RV S Phu: 10.8 cm /sec EDV(Teich): 118.1 ml [employer] Other [facility] echo transthoracic ESV(Teich): 40.0 ml [employer] Other [facility] echo transthoracic EF(Teich): 66.1 % [employer] Other [facility] echo transthoracic Doppler Measureme nts Calculations [employer] Other [facility] echo transthoracic MV dec time: 0.19 sec E/E' lat: MV dec slope: TV max PG: [employer] Other [facility] echo transthoracic 5.1 379.3 cm/sec2 34.0 mmHg [employer] Other [facility] echo transthoracic E/E' med: No [facility] [employer] Other [facility] echo transthoracic 8.5 No [facility] [employer] Other [facility] echo transthoracic __ No [facility] [employer] Other [facility] echo transthoracic TR max phu: N [facility] [employer] Other [facility] echo transthoracic 293.2 cm/sec [employer] Other [facility] echo transthoracic TR max P.4 mmHg [employer] Other [facility] transthoracic RAP systole: 5.0 mmHg [employer] Other [facility] echo transthoracic [employer] Other [facility] echo transthoracic Electronically si gned by: ELSY DUMAS MD, [facility] on 09/07/2022 12:37 PM [employer] Other [facility] echo transthoracic Transcribed By: [facility] [employer] Other [facility] echo transthoracic Performed At: 10/25 0856 [employer] Other [facility] echo transthoracic Signed By: Elsy Dumas MD, FACC 09/07/22 1237 [employer] Other [facility] mammogram Breast - bilat eral Screeningon 09-07-2022 MM screening mammo BI w/CAD Mammography Report [employer] Other MM screening mammo BI w/CAD Loc: Room: [facility] [employer] Other MM screening mammo BI w/CAD Copies to: Lety Flynn DNP [employer] Other MM screening mammo BI w/CAD Date of Service: 09/07/22 [employer] Other MM screening mammo BI w/CAD MM/MM screening mammo BI w/CAD: Encounter for screening mammogram for [employer] Other MM screening mammo BI w/CAD malignant neoplasm of [facility] [employer] Other MM screening mammo BI w/CAD CLINICAL DATA: Screening for malignancy. [employer] Other MM screening mammo BI w/CAD BILATERAL SCREENING MAMMOGRAMS - FULL FIELD DIGITAL WITH TOMOSYNTHESIS AND CAD [employer] Other MM screening mammo BI w/CAD Tomosynthesis craniocaudal and mediolateral oblique views of both breasts were obtained using low- [employer] Other MM screening mammo BI w/CAD dose digital technique. Comparison is made to prior studies from 08/08/2021, 05/19/2019, 04/11/2018, [employer] Other MM screening mammo BI w/CAD and 04/01/2017. This examination was reviewed with the aid of CAD. [employer] Other MM screening mammo BI w/CAD There are scattered fibroglandular densities. Benign-appearing calcifications are present. There is [employer] Other MM screening mammo BI w/CAD a similar focal asymmetry on the right laterally. There are no dominant masses, typically malignant [employer] Other MM screening mammo BI w/CAD calcifications or architectural distortion. There has been no significant interval change. [employer] Other MM screening mammo BI w/CAD MM/MM screening mammo BI w/CAD [employer] Other MM screening mammo BI w/CAD IMPRESSION: [employer] Other MM screening mammo BI w/CAD NO MAMMOGRAPHIC EVIDENCE OF MALIGNANCY. [employer] Other MM screening mammo BI w/CAD ROUTINE FOLLOW-UP IS RECOMMENDED IN ONE YEAR. [employer] Other MM screening mammo BI w/CAD RESULT CODE: 2 [employer] Other MM screening mammo BI w/CAD Benign Findings(s) [employer] Other MM screening mammo BI w/CAD DENSITY CODE: 2 (approximately 25-50% glandular) [employer] Other MM screening mammo BI w/CAD FOLLOW UP: 1YR [employer] Other MM screening mammo BI w/CAD The false-negative rate of mammography is approximately 10-percent. [employer] Other MM screening mammo BI w/CAD Management of a palpable abnormality must be based on clinical grounds. [employer] Other MM screening mammo BI w/CAD Patient was entered into a reminder system with a target due date for the next mammogram. [employer] Other MM screening mammo BI w/CAD Impression dictated by: Joel Valiente M.D.09/07/2022 10:15 AM [employer] Other MM screening mammo BI w/CAD Dictation Location: [facility] [employer] Other MM screening mammo BI w/CAD Transcribed By: JOAO 09/07/22 1015 [employer] Other MM screening mammo BI w/CAD Dictated By: Joel Valiente II, MD 09/07/22 1010 [employer] Other MM screening mammo BI w/CAD Signed By: [employer] Other MM screening mammo BI w/CAD 09/07/22 1015 [employer] Other MM screening mammo BI w/CADo n 09-07-2022 MM screening mammo BI w/CAD [facility] [employer] Other MM screening mammo BI w/CAD [facility] [employer] Other MM screening mammo BI w/CAD [address] [place] [address] [employer] Other MM screening mammo BI w/CAD [place] [id number] [employer] Other MM screening mammo BI w/CAD Signed [employer] Other MM screening mammo BI w/CAD Patient: Jose Kim MR#: [id number] [employer] Other MM screening mammo BI w/CAD 6 [employer] Other MM screening mammo BI w/CAD : 1945 Acct:[id number] [employer] Other MM screening mammo BI w/CAD Age/Sex: 77 / F ADM Date: 09/07/22 [employer] Other MM screening mammo BI w/CAD Attending Dr: Lety Flynn DNP [employer] Other MM screening mammo BI w/CAD Ordering Provider: Lety Flynn DNP [employer] Other A1C HEMOGLOBINon 09-03-2022 HbA1c (Bld) [Mass fraction] 5.7 % [employer] Other HbA1c (Bld) [Mass fraction]o n 09-03-2022 A1C HEMOGLOBIN [employer] Other Albumin [Mass/volume] in Ser um or PlasmaOrdered By: Pete Erazo on 08-20-2022 Albumin [Mass/Vol] 3.5 g/dL 3.2-5.[address] [facility] Albumin [Mass/Vol] 3.4 g/dL 2.9-4.[address] [facility] Basophils Auto (Bld) [#/Vol] Ordered By: Pete Erazo on 08-20-2022 Basophils (Bld) [#/Vol] 0.0 10*3/uL 0.0-0.2 [facility] Basophils/100 WBC Auto (Bld) Ordered By: Pete Erazo on 08-20-2022 Basophils/100 WBC (Bld) 0.5 % . [facility] Creatinine and Glomerular fi ltration rate.predicted panel (S/P/Bld)Ordered By: Pete Erazo on 08-20-2022 Creatinine [Mass/Vol] 0.94 mg/dL 0.44-1.03 [facility] Eosinophils Auto (Bld) [#/Vo l]Ordered By: Pete Erazo on 08-20-2022 Eosinophils (Bld) [#/Vol] 0.0 10*3/uL 0.0-0.45 [facility] Eosinophils/100 WBC Auto (Bl d)Ordered By: Pete Erazo on 08-20-2022 Eosinophils/100 WBC (Bld) 0.3 % . [facility] Erythrocyte distribution wid th Auto (RBC) [Ratio]Ordered By: Pete Erazo on 08-20-2022 Erythrocyte distribution width (RBC) [Ratio] 14.4 % 11.9-15.3 [facility] Erythrocyte sedimentation ra te by Photometric methodOrdered By: Pete Erazo on 08-20-2022 ESR Photometric method (Bld) [Velocity] 58 mm/hr 0-29 [facility] Estimated glomerular filtrat ion rate (GFR) non- AmericanOrdered By: Pete Erazo on 08-20-2022 GFR/1.73 sq M.predicted among non-blacks MDRD (S/P/Bld) [Vol rate/Area] 58 mL/Min [facility] Globulin Calc (S) [Mass/Vol] Ordered By: Pete Erazo on 08-20-2022 Globulin (S) [Mass/Vol] 5.1 g/dL [facility] Hematocrit Auto (Bld) [Volum e fraction]Ordered By: Pete Erazo on 08-20-2022 Hematocrit (Bld) [Volume fraction] 39.8 % 34.0-46.4 [facility] Hemoglobin [Mass/volume] in BloodOrdered By: Pete Erazo on 08-20-2022 Hemoglobin (Bld) [Mass/Vol] 13.1 g/dL 11.8-15.4 [facility] IgA [Mass/volume] in Serum o r PlasmaOrdered By: Pete Erazo on 08-20-2022 IgA [Mass/Vol] 259 mg/dL 64-422 [facility] IgG [Mass/volume] in Serum o r PlasmaOrdered By: Pete Erazo on 08-20-2022 IgG [Mass/Vol] 2783 mg/dL [phone] [facility] IgM [Mass/volume] in Serum o r PlasmaOrdered By: Pete Erazo on 08-20-2022 IgM [Mass/Vol] 205 mg/dL 26-217 [facility] Comment on above: Performed at: [id number] [place], [place] [id number] Director: Raghav Murphy PhD, Phone: [phone] Immunoglobulin light chains. kappa.free [Mass/volume] in SerumOrdered By: Pete Erazo on 08-20-2022 Immunoglobulin light chains.kappa.free (S) [Mass/Vol] 89.6 mg/L 3.3-19.4 [facility] Immunoglobulin light chains. kappa.free/Immunoglobulin light chains.lambda.free [MassOrdered By: Pete Erazo on 08-20-2022 Immunoglobulin light chains.kappa.free/Immun oglobulin light chains.lambda.free (S) [Mass ratio] 2.08 0.26-1.65 [facility] Comment on above: Performed at: [facility] [place], [place] [id number] Director: Raghav Murphy PhD, Phone: [phone] Immunoglobulin light chains. lambda.free [Mass/volume] in Serum or PlasmaOrdered By: Pete Erazo on 08-20-2022 Immunoglobulin light chains.lambda.free [Mass/Vol] 43.1 mg/L 5.7-26.3 [facility] Leukocytes [#/volume] correc tiffanie for nucleated erythrocytes in Blood by Automated counOrdered By: Pete Erazo on 08-20-2022 WBC corrected for nucl RBC Auto (Bld) [#/Vol] 8.8 10*3/uL 3.8-11.6 [facility] Lymphocytes Auto (Bld) [#/Vo l]Ordered By: Pete Erazo on 08-20-2022 Lymphocytes (Bld) [#/Vol] 1.1 10*3/uL 1.00-4.8 [facility] Lymphocytes/100 WBC Auto (Bl d)Ordered By: Pete Erazo on 08-20-2022 Lymphocytes/100 WBC (Bld) 12.0 % . [facility] MCH Auto (RBC) [Entitic mass ]Ordered By: Pete Erazo on 08-20-2022 MCH (RBC) [Entitic mass] 29.2 pg 24.7-34.3 [facility] MCHC Auto (RBC) [Mass/Vol]Or dered By: Pete Erazo on 08-20-2022 MCHC (RBC) [Mass/Vol] 33.0 g/dL 32.0-35.0 [facility] MCV Auto (RBC) [Entitic vol] Ordered By: Pete Erazo on 08-20-2022 MCV (RBC) [Entitic vol] 88.5 fL 80-100 [facility] Monocytes Auto (Bld) [#/Vol] Ordered By: Pete Erazo on 08-20-2022 Monocytes (Bld) [#/Vol] 0.8 10*3/uL 0.0-0.8 [facility] Monocytes/100 WBC Auto (Bld) Ordered By: Pete Erazo on 08-20-2022 Monocytes/100 WBC (Bld) 9.1 % . [facility] Neutrophils Auto (Bld) [#/Vo l]Ordered By: Pete Erazo on 08-20-2022 Neutrophils (Bld) [#/Vol] 6.9 10*3/uL 1.8-7.7 [facility] Neutrophils/100 WBC Auto (Bl d)Ordered By: Peet Erazo on 08-20-2022 Neutrophils/100 WBC (Bld) 78.1 % . [facility] No Panel InformationOrdered By: Pete Erazo on 08-20-2022 Estimated GFR () > 60 mL/Min [facility] Comment on above: GFR estimated refere nce range: According to KDOQI guidelines, <60 ml/min/1.73m2 is sufficient to diagnose a patient with chronic kidney disease. Pharmacy Creatinine Clearance (Chem 45.10 [facility] Protein Electrophoresis M-Hernando Not observed g/dL Not Observed [facility] Protein Electrophoresis Note See comment . [facility] Comment on above: Protein electrophore sis scan will follow via computer,mail, or courtroom reporter delivery.Performed at: [facility] Director: Raghav Murphy PhD, Phone: [phone] Serum Immunofixation See comment . [facility] Comment on above: No monoclonality det ected. Nucleated erythrocytes [Pres ence] in Blood by Automated countOrdered By: Pete Erazo on 08-20-2022 Nucleated RBC Auto Ql (Bld) 0.0 /100{WBC} 0-0.5 [facility] Platelet mean volume Auto (B ld) [Entitic vol]Ordered By: Pete Erazo on 08-20-2022 Platelet mean volume (Bld) [Entitic vol] 7.3 fL 6.3-10.7 [facility] Platelets Auto (Bld) [#/Vol] Ordered By: Pete Erazo on 08-20-2022 Platelets (Bld) [#/Vol] 277 10*3/uL 150-450 [facility] Protein [Mass/volume] in Ser um or PlasmaOrdered By: Pete Erazo on 08-20-2022 Protein [Mass/Vol] 8.6 g/dL 6.1-7.[address] [facility] Protein [Mass/Vol] 8.2 g/dL 6.0-8.[address] [facility] RBC Auto (Bld) [#/Vol]Ordere d By: Pete Erazo on 08-20-2022 RBC (Bld) [#/Vol] 4.50 10*6/uL 3.60-5.00 [facility] Serum globulin measurement ( mass/volume)Ordered By: Pete Erazo on 08-20-2022 Globulin (S) [Mass/Vol] 4.8 g/dL 2.2-3.9 [facility] Serum or plasma alanine rebolledo otransferase measurement without P-5'-P (enzymatic activiOrdered By: Pete Erazo on 08-20-2022 ALT No additional P-5'-P [Catalytic activity/Vol] 18 U/L 10-60 [facility] Serum or plasma albumin/glob ulin mass ratioOrdered By: Pete Erazo on 08-20-2022 Albumin/Globulin [Mass ratio] 0.7 {ratio} 0.7-1.7 [facility] Serum or plasma alkaline vani sphatase measurement (enzymatic activity/volume)Ordered By: Pete Erazo on 08-20-2022 ALP [Catalytic activity/Vol] 83 U/L 32-92 [facility] Serum or plasma alpha 1 glob ulin measurement by electrophoresis (mass/volume)Ordered By: Pete Erazo on 08-20-2022 Alpha 1 globulin Elph [Mass/Vol] 0.3 g/dL 0.0-0.4 [facility] Serum or plasma alpha 2 glob ulin measurement by electrophoresis (mass/volume)Ordered By: Pete Erazo on 08-20-2022 Alpha 2 globulin Elph [Mass/Vol] 1.0 g/dL 0.4-1.0 [facility] Serum or plasma anion gap de terminationOrdered By: Pete Erazo on 08-20-2022 Anion gap [Moles/Vol] 10.0 mmol/L 6.0-15.0 [facility] Serum or plasma aspartate am inotransferase measurement (enzymatic activity/volume)Ordered By: Pete Erazo on 08-20-2022 AST [Catalytic activity/Vol] 23 U/L 10-42 [facility] Serum or plasma beta globuli n measurement by electrophoresis (mass/volume)Ordered By: Pete Erazo on 08-20-2022 Beta globulin Elph [Mass/Vol] 1.1 g/dL 0.7-1.3 [facility] Serum or plasma calcium demian urement (mass/volume)Ordered By: Pete Erazo on 08-20-2022 Calcium [Mass/Vol] 9.5 mg/dL 8.2-10.[address] [facility] Serum or plasma chloride carson surement (moles/volume)Ordered By: Pete Erazo on 08-20-2022 Chloride [Moles/Vol] 106 mmol/L 95-114 [facility] Serum or plasma gamma globul in measurement by electrophoresis (mass/volume)Ordered By: Pete Erazo on 08-20-2022 Gamma globulin Elph [Mass/Vol] 2.5 g/dL 0.4-1.8 [facility] Serum or plasma glucose demian urement (mass/volume)Ordered By: Pete Erazo on 08-20-2022 Glucose [Mass/Vol] 105 mg/dL 70-[address] [facility] Comment on above: ADA recommended refe rence rangeRandom Glucose Reference Range is dependent on time and content of last meal. Glucose of more than 200 mg/dL in a nonstressed, ambulatory subject supports the diagnosis of Diabetes Mellitus. Serum or plasma potassium me asurement (moles/volume)Ordered By: Pete Erazo on 08-20-2022 Potassium [Moles/Vol] 4.2 mmol/L 3.5-5.1 [facility] Serum or plasma sodium measu rement (moles/volume)Ordered By: Pete Erazo on 08-20-2022 Sodium [Moles/Vol] 138 mmol/L 136-[address] [facility] Serum or plasma total biliru bin measurement (mass/volume)Ordered By: Pete Erazo on 08-20-2022 Bilirubin [Mass/Vol] 0.6 mg/dL 0.3-1.2 [facility] Serum or plasma total carbon dioxide measurement (moles/volume)Ordered By: Pete Erazo on 08-20-2022 CO2 [Moles/Vol] 26.2 mmol/L 22.0-30.0 [facility] Serum or plasma urea nitroge n measurement (mass/volume)Ordered By: Pete Erazo on 08-20-2022 Urea nitrogen [Mass/Vol] 13 mg/dL 9- [facility] WBC Auto (Bld) [#/Vol]Ordere d By: Pete Erazo on 08-20-2022 WBC (Bld) [#/Vol] 8.8 10*3/uL 3.8-11.[address] [facility] Glucose Glucometer (BldC) [M ass/Vol]Ordered By: Lety Flynn on 05-16-2022 Glucose [Mass/Vol] 90 mg/dL [facility] Comment on above: Random Glucose Refer ence Range is dependent on time and content of last meal. Glucose of more than 200 mg/dL in a nonstressed, ambulatory subject supports the diagnosis of Diabetes Mellitus. Albumin [Mass/volume] in Ser um or PlasmaOrdered By: Lety Flynn on 05-10-2022 Albumin [Mass/Vol] 3.3 g/dL 2.9-4.[address] [facility] Body fluid albumin measureme nt (mass/volume)Ordered By: Lety Flynn on 05-10-2022 Albumin (Body fld) [Mass/Vol] 3.6 g/dL 3.2-5.5 [facility] Creatinine and Glomerular fi ltration rate.predicted panel (S/P/Bld)Ordered By: Lety Flynn on 05-10-2022 Creatinine [Mass/Vol] 0.98 mg/dL 0.44-1.03 [facility] Estimated glomerular filtrat ion rate (GFR) non- AmericanOrdered By: Lety Flynn on 05-10-2022 GFR/1.73 sq M.predicted among non-blacks MDRD (S/P/Bld) [Vol rate/Area] 55 mL/Min [facility] Globulin Calc (S) [Mass/Vol] Ordered By: Lety Flynn on 05-10-2022 Globulin (S) [Mass/Vol] 4.7 g/dL [facility] IgA [Mass/volume] in Serum o r PlasmaOrdered By: Lety Flynn on 05-10-2022 IgA [Mass/Vol] 255 mg/dL 64-422 [facility] IgG [Mass/volume] in Serum o r PlasmaOrdered By: Lety Flynn on 05-10-2022 IgG [Mass/Vol] 2709 mg/dL [phone] [facility] IgM [Mass/volume] in Serum o r PlasmaOrdered By: Lety Flynn on 05-10-2022 IgM [Mass/Vol] 216 mg/dL 26-217 [facility] Comment on above: Performed at: [id number] [place] [id number] Director: Raghav Murphy PhD, Phone: [phone] Immunoglobulin light chains. kappa.free [Mass/volume] in SerumOrdered By: Lety Flynn on 05-10-2022 Immunoglobulin light chains.kappa.free (S) [Mass/Vol] 107.4 mg/L 3.3-19.4 [facility] Immunoglobulin light chains. kappa.free/Immunoglobulin light chains.lambda.free [MassOrdered By: Lety Flynn on 05-10-2022 Immunoglobulin light chains.kappa.free/Immun oglobulin light chains.lambda.free (S) [Mass ratio] 2.55 0.26-1.65 [facility] Comment on above: Performed at: [facility] [place] [id number] Director: Raghav Murphy PhD, Phone: [phone] Immunoglobulin light chains. lambda.free [Mass/volume] in Serum or PlasmaOrdered By: Lety Flynn on 05-10-2022 Immunoglobulin light chains.lambda.free [Mass/Vol] 42.2 mg/L 5.7-26.3 [facility] No Panel InformationOrdered By: Lety Flynn on 05-10-2022 Estimated GFR () > 60 mL/Min [facility] Comment on above: GFR estimated refere nce range: According to KDOQI guidelines, <60 ml/min/1.73m2 is sufficient to diagnose a patient with chronic kidney disease. Pharmacy Creatinine Clearance (Chem N/A [facility] Protein Electrophoresis M-Hernando Not observed g/dL Not Observed [facility] Protein Electrophoresis Note See comment . [facility] Comment on above: Protein electrophore sis scan will follow via computer,mail, or courtroom reporter delivery.Performed at: [facility] [id number] Director: Raghav Murphy PhD, Phone: [phone] Protein [Mass/volume] in Ser um or PlasmaOrdered By: Lety Flynn on 05-10-2022 Protein [Mass/Vol] 8.3 g/dL 6.1-7.[address] [facility] Protein [Mass/Vol] 8.4 g/dL 6.0-8.[address] [facility] Serum globulin measurement ( mass/volume)Ordered By: Lety Flynn on 05-10-2022 Globulin (S) [Mass/Vol] 5.1 g/dL 2.2-3.9 [facility] Serum or plasma alanine rebolledo otransferase measurement without P-5'-P (enzymatic activiOrdered By: Lety Flynn on 05-10-2022 ALT No additional P-5'-P [Catalytic activity/Vol] 16 U/L 10-60 [facility] Serum or plasma albumin/glob ulin mass ratioOrdered By: Lety Flynn on 05-10-2022 Albumin/Globulin [Mass ratio] 0.8 {ratio} [facility] Albumin/Globulin [Mass ratio] 0.6 {ratio} 0.7-1.7 [facility] Serum or plasma alkaline vani sphatase measurement (enzymatic activity/volume)Ordered By: Lety Flynn on 05-10-2022 ALP [Catalytic activity/Vol] 80 U/L 32-92 [facility] Serum or plasma alpha 1 glob ulin measurement by electrophoresis (mass/volume)Ordered By: Lety Flynn on 05-10-2022 Alpha 1 globulin Elph [Mass/Vol] 0.4 g/dL 0.0-0.4 [facility] Serum or plasma alpha 2 glob ulin measurement by electrophoresis (mass/volume)Ordered By: Lety Flynn on 05-10-2022 Alpha 2 globulin Elph [Mass/Vol] 1.0 g/dL 0.4-1.0 [facility] Serum or plasma anion gap de terminationOrdered By: Lety Flynn on 05-10-2022 Anion gap [Moles/Vol] 14.0 mmol/L 6.0-15.0 [facility] Serum or plasma aspartate am inotransferase measurement (enzymatic activity/volume)Ordered By: Lety Flynn on 05-10-2022 AST [Catalytic activity/Vol] 25 U/L [facility] Serum or plasma beta globuli n measurement by electrophoresis (mass/volume)Ordered By: Lety Flynn on 05-10-2022 Beta globulin Elph [Mass/Vol] 1.1 g/dL 0.7-1.3 [facility] Serum or plasma calcium demian urement (mass/volume)Ordered By: Lety Flynn on 05-10-2022 Calcium [Mass/Vol] 9.4 mg/dL 8.2-10.[address] [facility] Serum or plasma chloride carson surement (moles/volume)Ordered By: Lety Flynn on 05-10-2022 Chloride [Moles/Vol] 102 mmol/L 95-114 [facility] Serum or plasma gamma globul in measurement by electrophoresis (mass/volume)Ordered By: Lety Flynn on 05-10-2022 Gamma globulin Elph [Mass/Vol] 2.7 g/dL 0.4-1.8 [facility] Serum or plasma glucose demian urement (mass/volume)Ordered By: Lety Flynn on 05-10-2022 Glucose [Mass/Vol] 104 mg/dL 70-[address] [facility] Comment on above: ADA recommended refe rence rangeRandom Glucose Reference Range is dependent on time and content of last meal. Glucose of more than 200 mg/dL in a nonstressed, ambulatory subject supports the diagnosis of Diabetes Mellitus. Serum or plasma potassium me asurement (moles/volume)Ordered By: Lety Flynn on 05-10-2022 Potassium [Moles/Vol] 4.1 mmol/L 3.5-5.1 [facility] Serum or plasma sodium measu rement (moles/volume)Ordered By: Lety Flynn on 05-10-2022 Sodium [Moles/Vol] 136 mmol/L 136-[address] [facility] Serum or plasma total biliru bin measurement (mass/volume)Ordered By: Lety Flynn on 05-10-2022 Bilirubin [Mass/Vol] 0.6 mg/dL 0.3-1.2 [facility] Serum or plasma total carbon dioxide measurement (moles/volume)Ordered By: Lety Flynn on 05-10-2022 CO2 [Moles/Vol] 24.1 mmol/L 22.0-30.0 [facility] Serum or plasma urea nitroge n measurement (mass/volume)Ordered By: Lety Flynn on 05-10-2022 Urea nitrogen [Mass/Vol] 10 mg/dL 04-27 [facility] Albumin [Mass/volume] in Ser um or PlasmaOrdered By: Lety Flynn on 05-02-2022 Albumin [Mass/Vol] 3.7 g/dL 3.2-5.[address] [facility] Basophils Auto (Bld) [#/Vol] Ordered By: Lety Flynn on 05-02-2022 Basophils (Bld) [#/Vol] 0.1 10*3/uL 0.0-0.2 [facility] Basophils/100 WBC Auto (Bld) Ordered By: Lety Flynn on 05-02-2022 Basophils/100 WBC (Bld) 1.0 % . [facility] Blood hemoglobin measurement (mass/volume)Ordered By: Lety Flynn on 05-02-2022 Hemoglobin (Bld) [Mass/Vol] 13.4 g/dL 11.8-15.4 [facility] Blood leukocytes automated c ount (number/volume)Ordered By: Lety Flynn on 05-02-2022 WBC (Bld) [#/Vol] 7.6 10*3/uL 4.5-11.[address] [facility] Cholesterol [Mass/volume] in Serum or PlasmaOrdered By: Lety Flynn on 05-02-2022 Cholesterol [Mass/Vol] 174 mg/dL 140-200 [facility] Comment on above: Chol less than 200 m g/dl low riskChol 201-239 mg/dl borderline riskChol 240 mg/dl and greater high risk Cholesterol in LDL Calc [Mas s/Vol]Ordered By: Lety Flynn on 05-02-2022 Cholesterol in LDL [Mass/Vol] 101 mg/dL 0-100 [facility] Comment on above: LDL ATP III CLASSIFI CATIONLDL less than 100 mg/dL OptimalLDL 100-129 mg/dL Near or above optimalLDL 130-159 mg/dL Borderline highLDL 160-189 mg/dL HighLDL greater than 189 mg/dL Very high Cholesterol in VLDL Calc [Ma ss/Vol]Ordered By: Lety Flynn on 05-02-2022 Cholesterol in VLDL [Mass/Vol] 14 mg/dL [facility] Creatinine and Glomerular fi ltration rate.predicted panel (S/P/Bld)Ordered By: Lety Flynn on 05-02-2022 Creatinine [Mass/Vol] 0.98 mg/dL 0.44-1.03 [facility] Eosinophils Auto (Bld) [#/Vo l]Ordered By: Lety Flynn on 05-02-2022 Eosinophils (Bld) [#/Vol] 0.1 10*3/uL 0.0-0.45 [facility] Eosinophils/100 WBC Auto (Bl d)Ordered By: Lety Flynn on 05-02-2022 Eosinophils/100 WBC (Bld) 1.1 % . [facility] Erythrocyte distribution wid th Auto (RBC) [Ratio]Ordered By: Lety Flynn on 05-02-2022 Erythrocyte distribution width (RBC) [Ratio] 14.3 % 11.9-15.3 [facility] Estimated glomerular filtrat ion rate (GFR) non- AmericanOrdered By: Lety Flynn on 05-02-2022 GFR/1.73 sq M.predicted among non-blacks MDRD (S/P/Bld) [Vol rate/Area] 55 mL/Min [facility] Globulin Calc (S) [Mass/Vol] Ordered By: Lety Flynn on 05-02-2022 Globulin (S) [Mass/Vol] 5.0 g/dL [facility] Glucose mean value [Mass/vol ume] in Blood Estimated from glycated hemoglobinOrdered By: Lety Flynn on 05-02-2022 Average glucose Estimated from glycated hemoglobin (Bld) [Mass/Vol] 120 mg/dL [facility] Hematocrit Auto (Bld) [Volum e fraction]Ordered By: Lety Flynn on 05-02-2022 Hematocrit (Bld) [Volume fraction] 41.2 % 34.0-46.4 [facility] Hemoglobin A1c percentageOrd ered By: Lety Flynn on 05-02-2022 HbA1c (Bld) [Mass fraction] 5.8 % 4.3-5.6 [facility] Comment on above: Increased risk for d iabetes: 5.7 - 6.4diabetes: >6.4glycemic control for adults with diabetes: <7.0 Laboratory - Hematology and Cell countsOrdered By: Lety Flynn on 05-02-2022 Nucleated RBC/100 WBC (Bld) [Ratio] 0.2 % 0-0.5 [facility] Lymphocytes Auto (Bld) [#/Vo l]Ordered By: Lety Flynn on 05-02-2022 Lymphocytes (Bld) [#/Vol] 1.4 10*3/uL 1.00-4.8 [facility] Lymphocytes/100 WBC Auto (Bl d)Ordered By: Lety Flynn on 05-02-2022 Lymphocytes/100 WBC (Bld) 19.0 % . [facility] MCH Auto (RBC) [Entitic mass ]Ordered By: Lety Flynn on 05-02-2022 MCH (RBC) [Entitic mass] 28.9 pg 24.7-34.3 [facility] MCHC Auto (RBC) [Mass/Vol]Or dered By: Lety Flynn on 05-02-2022 MCHC (RBC) [Mass/Vol] 32.6 g/dL 32.0-35.0 [facility] MCV Auto (RBC) [Entitic vol] Ordered By: Lety Flynn on 05-02-2022 MCV (RBC) [Entitic vol] 88.5 fL 80-100 [facility] Monocytes Auto (Bld) [#/Vol] Ordered By: Lety Flynn on 05-02-2022 Monocytes (Bld) [#/Vol] 0.6 10*3/uL 0.0-0.8 [facility] Monocytes/100 WBC Auto (Bld) Ordered By: Lety Flynn on 05-02-2022 Monocytes/100 WBC (Bld) 7.6 % . [facility] Neutrophils Auto (Bld) [#/Vo l]Ordered By: Lety Flynn on 05-02-2022 Neutrophils (Bld) [#/Vol] 5.4 10*3/uL 1.8-7.7 [facility] Neutrophils/100 WBC Auto (Bl d)Ordered By: Lety Flynn on 05-02-2022 Neutrophils/100 WBC (Bld) 71.3 % . [facility] No Panel InformationOrdered By: Lety Flynn on 05-02-2022 Estimated GFR () > 60 mL/Min [facility] Comment on above: GFR estimated refere nce range: According to KDOQI guidelines, <60 ml/min/1.73m2 is sufficient to diagnose a patient with chronic kidney disease. Pharmacy Creatinine Clearance (Chem N/A [facility] Platelet mean volume Auto (B ld) [Entitic vol]Ordered By: Lety Flynn on 05-02-2022 Platelet mean volume (Bld) [Entitic vol] 8.0 fL 6.3-10.7 [facility] Platelets Auto (Bld) [#/Vol] Ordered By: Lety Flynn on 05-02-2022 Platelets (Bld) [#/Vol] 315 10*3/uL 150-450 [facility] Protein [Mass/volume] in Ser um or PlasmaOrdered By: Lety Flynn on 05-02-2022 Protein [Mass/Vol] 8.7 g/dL 6.1-7.[address] [facility] RBC Auto (Bld) [#/Vol]Ordere d By: Lety Flynn on 05-02-2022 RBC (Bld) [#/Vol] 4.66 10*6/uL 3.60-5.00 [facility] Serum or plasma alanine rebolledo otransferase measurement without P-5'-P (enzymatic activiOrdered By: Lety Flynn on 05-02-2022 ALT No additional P-5'-P [Catalytic activity/Vol] 17 U/L 10-60 [facility] Serum or plasma albumin/glob ulin mass ratioOrdered By: Lety Flynn on 05-02-2022 Albumin/Globulin [Mass ratio] 0.7 {ratio} [facility] Serum or plasma alkaline vani sphatase measurement (enzymatic activity/volume)Ordered By: Lety Flynn on 05-02-2022 ALP [Catalytic activity/Vol] 87 U/L 32-92 [facility] Serum or plasma anion gap de terminationOrdered By: Lety Flynn on 05-02-2022 Anion gap [Moles/Vol] 12.3 mmol/L 6.0-15.0 [facility] Serum or plasma aspartate am inotransferase measurement (enzymatic activity/volume)Ordered By: Lety Flynn on 05-02-2022 AST [Catalytic activity/Vol] 24 U/L 10-42 [facility] Serum or plasma calcium demian urement (mass/volume)Ordered By: Lety Flynn on 05-02-2022 Calcium [Mass/Vol] 9.7 mg/dL 8.2-10.[address] [facility] Serum or plasma chloride carson surement (moles/volume)Ordered By: Lety Flynn on 05-02-2022 Chloride [Moles/Vol] 101 mmol/L 95-114 [facility] Serum or plasma glucose demian urement (mass/volume)Ordered By: Leyt Flynn on 05-02-2022 Glucose [Mass/Vol] 98 mg/dL 70-[address] [facility] Comment on above: ADA recommended refe rence rangeRandom Glucose Reference Range is dependent on time and content of last meal. Glucose of more than 200 mg/dL in a nonstressed, ambulatory subject supports the diagnosis of Diabetes Mellitus. Serum or plasma high density lipoprotein (HDL) cholesterol measurementOrdered By: Lety Flynn on 05-02-2022 Cholesterol in HDL [Mass/Vol] 59 mg/dL 35-85 [facility] Comment on above: HDL CHOL ATP-III CLA SSIFICATION Cardiovascular RiskHDL > or equal to 60 mg/dL LOWHDL < 40 mg/dL HIGH Serum or plasma potassium me asurement (moles/volume)Ordered By: Lety Flynn on 05-02-2022 Potassium [Moles/Vol] 3.8 mmol/L 3.5-5.1 [facility] Serum or plasma sodium measu rement (moles/volume)Ordered By: Lety Flynn on 05-02-2022 Sodium [Moles/Vol] 135 mmol/L 136-[address] [facility] Serum or plasma total biliru bin measurement (mass/volume)Ordered By: Lety Flynn on 05-02-2022 Bilirubin [Mass/Vol] 0.5 mg/dL 0.3-1.2 [facility] Serum or plasma total carbon dioxide measurement (moles/volume)Ordered By: Lety Flynn on 05-02-2022 CO2 [Moles/Vol] 25.5 mmol/L 22.0-30.0 [facility] Serum or plasma total choles terol/high density lipoprotein (HDL) cholesterol mass ratOrdered By: Lety Flynn on 05-02-2022 Cholesterol.total/Kiki sterol in HDL [Mass ratio] 2.9 {ratio} <5.0 [facility] Serum or plasma urea nitroge n measurement (mass/volume)Ordered By: Lety Flynn on 05-02-2022 Urea nitrogen [Mass/Vol] 17 mg/dL 9-23 [facility] TSH DL <= 0.005 mIU/L QnOrde red By: Lety Flynn on 05-02-2022 TSH Qn 2.34 m[IU]/L 0.45-5.33 [facility] Triglyceride [Mass/volume] i n Serum or PlasmaOrdered By: Lety Flynn on 05-02-2022 Triglyceride [Mass/Vol] 72 mg/dL 35-149 [facility] Comment on above: TRIG ATP III CLASSIF ICATIONTRIG less than 150 mg/dL NormalTRIG 150-199 mg/dL Borderline highTRIG 200-500 mg/dL High TRIG greater than 500 mg/dL Very highStandard traceable to the Center for Disease Conrtrol and Prevention (CDC) test method. Vital Signs Date Time Vital Sign Value Performing Clinician Facility 01-08-2025 13:56-0400 Body weight 63.5 kg Petra DeWilde DO Work Phone: [facility] 01-08-2025 13:56-0400 Diastolic blood pressure 65 mm[Hg] Petra DeWilde DO Work Phone: [facility] 01-08-2025 13:56-0400 Heart rate 65 /min Petra DeWilde DO Work Phone: [facility] 01-08-2025 13:56-0400 Respiratory rate 18 /min Petra DeWilde DO Work Phone: [facility] 01-08-2025 13:56-0400 SaO2% (BldA) [Mass fraction] 97 % Petra DeWilde DO Work Phone: [facility] 01-08-2025 13:56-0400 Systolic blood pressure 127 mm[Hg] Petra DeWilde DO Work Phone: [facility] 01-01-2025 11:38-0400 Body height 162.56 cm Petra DeWilde DO Work Phone: [facility] 01-01-2025 11:38-0400 Body mass index (BMI) [Ratio] 24 kg/m2 Petra DeWilde DO Work Phone: [facility] 01-01-2025 11:38-0400 Body temperature 97.7 [degF] Petra DeWilde DO Work Phone: [facility] 01-01-2025 11:38-0400 Body weight 63.5 kg Petra DeWilde DO Work Phone: [facility] 01-01-2025 11:38-0400 Diastolic blood pressure 73 mm[Hg] Petra DeWilde DO Work Phone: [facility] 01-01-2025 11:38-0400 Heart rate 87 /min Petra DeWilde DO Work Phone: [facility] 01-01-2025 11:38-0400 Respiratory rate 16 /min Petra DeWilde DO Work Phone: [facility] 01-01-2025 11:38-0400 SaO2% (BldA) [Mass fraction] 95 % Petra DeWilde DO Work Phone: [facility] 01-01-2025 11:38-0400 Systolic blood pressure 128 mm[Hg] Petra DeWilde DO Work Phone: [facility] 10-21-2024 10:59-0400 Body height 162.56 cm Petra DeWilde DO Work Phone: [facility] 10-21-2024 10:59-0400 Body mass index (BMI) [Ratio] 23 kg/m2 Petra DeWilde DO Work Phone: [facility] 10-21-2024 10:59-0400 Body weight 60.78 kg Petra DeWilde DO Work Phone: [facility] 10-21-2024 10:59-0400 Diastolic blood pressure 70 mm[Hg] Petra DeWilde DO Work Phone: [facility] 10-21-2024 10:59-0400 Heart rate 67 /min Ptera DeWilde DO Work Phone: [facility] 10-21-2024 10:59-0400 SaO2% (BldA) [Mass fraction] 96 % Petra DeWilde DO Work Phone: [facility] 10-21-2024 10:59-0400 Systolic blood pressure 102 mm[Hg] Petra DeWilde DO Work Phone: [facility] 07-22-2024 11:12-0500 Body height 162.56 cm Petra DeWilde DO Work Phone: [facility] 07-22-2024 11:12-0500 Body mass index (BMI) [Ratio] 22.5 kg/m2 Petra DeWilde DO Work Phone: [phone] [place] [address] 07-22-2024 11:12-0500 Body weight 59.59 kg Petra DeWilde DO Work Phone: [facility] 07-22-2024 11:12-0500 Diastolic blood pressure 70 mm[Hg] Petra DeWilde DO Work Phone: [facility] 07-22-2024 11:12-0500 Heart rate 93 /min Petra DeWilde DO Work Phone: [facility] 07-22-2024 11:12-0500 Respiratory rate 18 /min Petra DeWilde DO Work Phone: [facility] 07-22-2024 11:12-0500 SaO2% (BldA) [Mass fraction] 97 % Petra DeWilde DO Work Phone: [facility] 07-22-2024 11:12-0500 Systolic blood pressure 120 mm[Hg] Petra DeWilde DO Work Phone: [facility] 04-07-2024 11:40-0400 Body height 162.56 cm SARA Flynn Work Phone: [facility] 04-07-2024 11:40-0400 Body mass index (BMI) [Ratio] 19.4 kg/m2 DNP Lety Kaple Work Phone: [facility] 04-07-2024 11:40-0400 Body temperature 97.3 [degF] DNP Lety Triplettle Work Phone: [facility] 04-07-2024 11:40-0400 Body weight 51.42 kg DNP Lety Triplettle Work Phone: [facility] 04-07-2024 11:40-0400 Diastolic blood pressure 65 mm[Hg] DNP Lety Kaple Work Phone: [facility] 04-07-2024 11:40-0400 Heart rate 90 /min DNP Lety Triplettle Work Phone: [facility] 04-07-2024 11:40-0400 Respiratory rate 20 /min DNP Lety Triplettle Work Phone: [facility] 04-07-2024 11:40-0400 SaO2% (BldA) [Mass fraction] 95 % DNP Lety Flynn Work Phone: [facility] 04-07-2024 11:40-0400 Systolic blood pressure 122 mm[Hg] DNP Lety Triplettle Work Phone: [facility] 02-27-2024 14:34-0400 Body height 162.56 cm [facility] 02-27-2024 14:34-0400 Body mass index (BMI) [Ratio] 19.1 kg/m2 [facility] 02-27-2024 14:34-0400 Body weight 50.43 kg [facility] 02-27-2024 14:34-0400 Diastolic blood pressure 70 mm[Hg] [facility] 02-27-2024 14:34-0400 Heart rate 77 /min [facility] 02-27-2024 14:34-0400 Respiratory rate 18 /min [facility] 02-27-2024 14:34-0400 SaO2% (BldA) [Mass fraction] 95 % [facility] 02-27-2024 14:34-0400 Systolic blood pressure 120 mm[Hg] [facility] 02-18-2024 11:25-0400 Blood Pressure Location Cinthya Orzech [facility] 02-18-2024 11:25-0400 Diastolic blood pressure 68 mm[Hg] Cinthya Orzech [facility] 02-18-2024 11:25-0400 Heart rate 68 /min Cinthya Orzech [facility] 02-18-2024 11:25-0400 Respiratory rate 16 /min Cinthya Orzech [facility] 02-18-2024 11:25-0400 Systolic blood pressure 110 mm[Hg] Cinthya Orzech [facility] 12-10-2023 10:40-0400 Body height 162.56 cm [facility] 12-10-2023 10:40-0400 Body mass index (BMI) [Ratio] 18.9 kg/m2 [facility] 12-10-2023 10:40-0400 Body weight 49.98 kg [facility] 12-10-2023 10:40-0400 Diastolic blood pressure 80 mm[Hg] [facility] 12-10-2023 10:40-0400 Heart rate 96 /min [facility] 12-10-2023 10:40-0400 Respiratory rate 18 /min [facility] 12-10-2023 10:40-0400 SaO2% (BldA) [Mass fraction] 93 % [facility] 12-10-2023 10:40-0400 Systolic blood pressure 117 mm[Hg] [facility] 07-02-2023 13:15-0500 Body height 162.56 cm Imad Asaad Other [employer] Other 07-02-2023 13:15-0500 Body mass index (BMI) [Ratio] 19.57 kg/m2 Imad Asaad Other [employer] Other 07-02-2023 13:15-0500 Body weight 51.71 kg Imad Asaad Other [employer] Other 07-02-2023 13:15-0500 Diastolic blood pressure 76 mm[Hg] Imad Asaad Other [employer] Other 07-02-2023 13:15-0500 Systolic blood pressure 124 mm[Hg] Imad Asaad Other [employer] Other 05-20-2023 13:29-0400 Blood Pressure Location Garcia TURNER [facility] 05-20-2023 13:29-0400 Diastolic blood pressure 64 mm[Hg] Garcia TURNER [facility] 05-20-2023 13:29-0400 Heart rate 88 /min Garcia TURNER [facility] 05-20-2023 13:29-0400 Respiratory rate 16 /min Garcia TURNER [facility] 05-20-2023 13:29-0400 Systolic blood pressure 111 mm[Hg] Garcia TURNER [facility] 05-17-2023 15:26-0400 Body temperature 98.4 [degF] DNP Lety Gee Work Phone: [facility] 05-17-2023 15:26-0400 Body weight 53.07 kg DNP Lety Triplettle Work Phone: [facility] 05-17-2023 15:26-0400 Diastolic blood pressure 62 mm[Hg] DNP Lety Kaple Work Phone: [facility] 05-17-2023 15:26-0400 Heart rate 114 /min DNP Lety Triplettle Work Phone: [facility] 05-17-2023 15:26-0400 Respiratory rate 16 /min DNP Lety Kaple Work Phone: [facility] 05-17-2023 15:26-0400 SaO2% (BldA) [Mass fraction] 92 % DNP Lety Triplettle Work Phone: [facility] 05-17-2023 15:26-0400 Systolic blood pressure 119 mm[Hg] DNP Lety Triplettle Work Phone: [facility] 04-30-2023 14:30-0400 Body height 162.56 cm Lety Kaportega Other [employer] Other 04-30-2023 14:30-0400 Body mass index (BMI) [Ratio] 21.63 kg/m2 Lety Gee Other [employer] Other 04-30-2023 14:30-0400 Body temperature 100.2 [degF] Lety Gee Other [employer] Other 04-30-2023 14:30-0400 Body weight 57.15 kg Lety Triplettrotega Other [employer] Other 04-30-2023 14:30-0400 Diastolic blood pressure 60 mm[Hg] Lety Flynn Other [employer] Other 04-30-2023 14:30-0400 Respiratory rate 18 /min Lety Kaple Other [employer] Other 04-30-2023 14:30-0400 SaO2% (BldA) [Mass fraction] 98 % Lety Kaple Other [employer] Other 04-30-2023 14:30-0400 Systolic blood pressure 118 mm[Hg] Lety Kaple Other [employer] Other 04-12-2023 19:27-0400 Diastolic blood pressure 77 mm[Hg] DNP Lety Kaple Work Phone: [facility] 04-12-2023 19:27-0400 Heart rate 96 /min DNP Lety Kaple Work Phone: [facility] 04-12-2023 19:27-0400 Respiratory rate 18 /min DNP Lety Kaple Work Phone: [facility] 04-12-2023 19:27-0400 SaO2% (BldA) [Mass fraction] 94 % DNP Lety Kaple Work Phone: [facility] 04-12-2023 19:27-0400 Systolic blood pressure 162 mm[Hg] DNP Lety Kaple Work Phone: [facility] 04-12-2023 13:11-0400 Body height 165.1 cm DNP Lety Kaple Work Phone: [facility] 04-12-2023 13:11-0400 Body temperature 97.6 [degF] DNP Lety Kaple Work Phone: [facility] 04-12-2023 13:11-0400 Body weight 57.7 kg DNP Lety Kaple Work Phone: [facility] 04-12-2023 12:15-0400 Body height 162.56 cm Lety Flynn Other [employer] Other 04-12-2023 12:15-0400 Body mass index (BMI) [Ratio] 21.63 kg/m2 Lety Flynn Other [employer] Other 04-12-2023 12:15-0400 Body weight 57.15 kg Lety Gee Other [employer] Other 04-12-2023 12:15-0400 Diastolic blood pressure 60 mm[Hg] Lety Flynn Other [employer] Other 04-12-2023 12:15-0400 Respiratory rate 18 /min Lety Flynn Other [employer] Other 04-12-2023 12:15-0400 SaO2% (BldA) [Mass fraction] 97 % Letyjaimee Flynn Other [employer] Other 04-12-2023 12:15-0400 Systolic blood pressure 100 mm[Hg] Lety Flynn Other [employer] Other 02-26-2023 09:30-0400 Body height 162.56 cm Cornel Olexa Other [employer] Other 02-26-2023 09:30-0400 Body mass index (BMI) [Ratio] 24.54 kg/m2 Cornel Olexa Other [employer] Other 02-26-2023 09:30-0400 Body weight 64.86 kg Cornel Olexa Other [employer] Other 01-03-2023 09:15-0400 Body height 162.56 cm Lety Gee Other [employer] Other 01-03-2023 09:15-0400 Body mass index (BMI) [Ratio] 24.68 kg/m2 Lety Flynn Other [employer] Other 01-03-2023 09:15-0400 Body weight 65.23 kg Lety Gee Other [employer] Other 01-03-2023 09:15-0400 Diastolic blood pressure 60 mm[Hg] Lety Flynn Other [employer] Other 01-03-2023 09:15-0400 Respiratory rate 18 /min Lety Flynn Other [employer] Other 01-03-2023 09:15-0400 SaO2% (BldA) [Mass fraction] 96 % Letyjaimee Flynn Other [employer] Other 01-03-2023 09:15-0400 Systolic blood pressure 120 mm[Hg] Lety Flynn Other [employer] Other 11-05-2022 14:00-0400 Body height 162.56 cm Laron Gomes Other [employer] Other 11-05-2022 14:00-0400 Body mass index (BMI) [Ratio] 24.54 kg/m2 Laron Gomes Other [employer] Other 11-05-2022 14:00-0400 Body temperature 97.1 [degF] Laron Gomes Other [employer] Other 11-05-2022 14:00-0400 Body weight 64.86 kg Laron Benderno Other [employer] Other 11-05-2022 14:00-0400 Diastolic blood pressure 70 mm[Hg] Laron Benderno Other [employer] Other 11-05-2022 14:00-0400 Respiratory rate 20 /min Laron Benderno Other [employer] Other 11-05-2022 14:00-0400 SaO2% (BldA) [Mass fraction] 95 % Laron Gomes Other [employer] Other 11-05-2022 14:00-0400 Systolic blood pressure 150 mm[Hg] Laron Benderno Other [employer] Other 09-14-2022 13:55-0500 Diastolic blood pressure 75 mm[Hg] DNP Lety Gee Work Phone: [facility] 09-14-2022 13:55-0500 Heart rate 62 /min DNP Lety Flynn Work Phone: [facility] 09-14-2022 13:55-0500 Systolic blood pressure 145 mm[Hg] DNP Lety Gee Work Phone: [facility] 09-03-2022 16:15-0500 Body height 162.56 cm Lety Flynn Other [facility] [employer] Other 09-03-2022 16:15-0500 Body mass index (BMI) [Ratio] 24.18 kg/m2 Lety Triplettle Other [employer] Other 09-03-2022 16:15-0500 Body weight 63.91 kg Lety Triplettle Other [employer] Other 09-03-2022 16:15-0500 Diastolic blood pressure 78 mm[Hg] Lety Kaple Other [employer] Other 09-03-2022 16:15-0500 Respiratory rate 20 /min Lety Kaple Other [employer] Other 09-03-2022 16:15-0500 SaO2% (BldA) [Mass fraction] 98 % Lety Triplettortega Other [employer] Other 09-03-2022 16:15-0500 Systolic blood pressure 122 mm[Hg] Lety Triplettle Other [employer] Other 08-24-2022 11:16-0500 Body temperature 97.8 [degF] DNP Lety Kaple Work Phone: [facility] 08-24-2022 11:16-0500 Body weight 97.2 kg DNP Lety Kaple Work Phone: [facility] 08-24-2022 11:16-0500 Diastolic blood pressure 68 mm[Hg] DNP Lety Kaple Work Phone: [facility] 08-24-2022 11:16-0500 Heart rate 86 /min DNP Lety Kaple Work Phone: [facility] 08-24-2022 11:16-0500 Respiratory rate 16 /min DNP Leyt Kaple Work Phone: [facility] 08-24-2022 11:16-0500 SaO2% (BldA) [Mass fraction] 95 % DNP Lety Kaple Work Phone: [facility] 08-24-2022 11:16-0500 Systolic blood pressure 137 mm[Hg] DNP Lety Kaple Work Phone: [facility] 07-11-2022 14:34-0500 Body height 165.1 cm DNP Lety Kaple Work Phone: [facility] 07-11-2022 14:34-0500 Body mass index (BMI) [Ratio] 22.6 kg/m2 DNP Lety Kaple Work Phone: [facility] 07-11-2022 14:34-0500 Body weight 61.68 kg DNP Lety Kaple Work Phone: [phone] [place] [address] 07-11-2022 14:28-0500 Body temperature 98.1 [degF] DNP Lety Kaple Work Phone: [facility] 07-11-2022 14:28-0500 Diastolic blood pressure 76 mm[Hg] DNP Lety Kaple Work Phone: [facility] 07-11-2022 14:28-0500 Heart rate 87 /min DNP Lety Kaple Work Phone: [facility] 07-11-2022 14:28-0500 Respiratory rate 18 /min DNP Lety Kaple Work Phone: [facility] 07-11-2022 14:28-0500 Systolic blood pressure 145 mm[Hg] DNP Lety Kaple Work Phone: [facility] 06-27-2022 14:33-0500 Body height 165.1 cm DNP Lety Kaple Work Phone: [phone] [place] [address] 06-27-2022 14:33-0500 Body mass index (BMI) [Ratio] 22.6 kg/m2 SARA Flynn Work Phone: [facility] 06-27-2022 14:33-0500 Body weight 61.68 kg DNP Lety Flynn Work Phone: [facility] 06-18-2022 12:30-0500 Body height 162.56 cm Laron Benderno Other [employer] Other 06-18-2022 12:30-0500 Body mass index (BMI) [Ratio] 23.34 kg/m2 Christjoseer Mireya Other [employer] Other 06-18-2022 12:30-0500 Body temperature 97.6 [degF] Laron Pottsdano Other [employer] Other 06-18-2022 12:30-0500 Body weight 61.69 kg Hamzaher Mireya Other [employer] Other 06-18-2022 12:30-0500 Diastolic blood pressure 76 mm[Hg] Hamzaher Mireya Other [employer] Other 06-18-2022 12:30-0500 Respiratory rate 20 /min Christjoseer Mireya Other [employer] Other 06-18-2022 12:30-0500 SaO2% (BldA) [Mass fraction] 97 % Hamzaher Mireya Other [employer] Other 06-18-2022 12:30-0500 Systolic blood pressure 128 mm[Hg] Hamzaher Mireya Other [employer] Other 06-12-2022 11:45-0500 Body height 162.56 cm Lety Flynn Other [employer] Other 06-12-2022 11:45-0500 Body mass index (BMI) [Ratio] 23.67 kg/m2 Lety Flynn Other [employer] Other 06-12-2022 11:45-0500 Body weight 62.55 kg Lety Flynn Other [employer] Other 06-12-2022 11:45-0500 Diastolic blood pressure 60 mm[Hg] Lety Flynn Other [employer] Other 06-12-2022 11:45-0500 Respiratory rate 18 /min Lety Flynn Other [employer] Other 06-12-2022 11:45-0500 SaO2% (BldA) [Mass fraction] 98 % Lety Flynn Other [employer] Other 06-12-2022 11:45-0500 Systolic blood pressure 110 mm[Hg] Lety Flynn Other [employer] Other 06-04-2022 14:40-0400 Body height 162.56 cm Mckenzie Bates Other [employer] Other 06-04-2022 14:40-0400 Body mass index (BMI) [Ratio] 23.17 kg/m2 Mckenzie Bates Other [employer] Other 06-04-2022 14:40-0400 Body temperature 98.6 [degF] Mckenzie Bates Other [employer] Other 06-04-2022 14:40-0400 Body weight 61.24 kg Mckenzie Bates Other [employer] Other 06-04-2022 14:40-0400 Respiratory rate 18 /min Mckenzie Bates Other [employer] Other 06-04-2022 14:40-0400 SaO2% (BldA) [Mass fraction] 90 % Mckenzie Bates Other [employer] Other 05-18-2022 11:21-0400 Body temperature 98 [degF] DNP Lety Kaple Work Phone: [facility] 05-18-2022 11:21-0400 Body weight 63.18 kg DNP Lety Kaple Work Phone: [facility] 05-18-2022 11:21-0400 Diastolic blood pressure 75 mm[Hg] DNP Lety Kaple Work Phone: [facility] 05-18-2022 11:21-0400 Heart rate 76 /min DNP Lety Kaple Work Phone: [facility] 05-18-2022 11:21-0400 Respiratory rate 20 /min DNP Lety Kaple Work Phone: [facility] 05-18-2022 11:21-0400 SaO2% (BldA) [Mass fraction] 96 % DNP Lety Kaple Work Phone: [facility] 05-18-2022 11:21-0400 Systolic blood pressure 139 mm[Hg] DNP Lety Kaple Work Phone: [facility] 05-18-2022 11:04-0400 Body height 165.1 cm SARA Lety Triplettortega Work Phone: [facility] 05-02-2022 14:15-0400 Body height 162.56 cm Lety Gee Other [employer] Other 05-02-2022 14:15-0400 Body mass index (BMI) [Ratio] 24.01 kg/m2 Lety Gee Other [employer] Other 05-02-2022 14:15-0400 Body temperature 97.1 [degF] Lety Gee Other [employer] Other 05-02-2022 14:15-0400 Body weight 63.46 kg Lety Gee Other [employer] Other 05-02-2022 14:15-0400 Diastolic blood pressure 60 mm[Hg] Lety Kaportega Other [employer] Other 05-02-2022 14:15-0400 Respiratory rate 18 /min Lety Gee Other [employer] Other 05-02-2022 14:15-0400 SaO2% (BldA) [Mass fraction] 95 % Lety Gee Other [employer] Other 05-02-2022 14:15-0400 Systolic blood pressure 110 mm[Hg] Lety Flynn Other [employer] Other 11-06-2021 14:15-0400 Body height 162.56 cm Laron Gomes Other [employer] Other 11-06-2021 14:15-0400 Body mass index (BMI) [Ratio] 24.03 kg/m2 Laron Benderno Other [employer] Other 11-06-2021 14:15-0400 Body temperature 96.7 [degF] Laron Pottsdano Other [employer] Other 11-06-2021 14:15-0400 Body weight 63.5 kg Laron oPttsdano Other [employer] Other 11-06-2021 14:15-0400 Diastolic blood pressure 78 mm[Hg] Laron Pottsdano Other [employer] Other 11-06-2021 14:15-0400 Respiratory rate 20 /min Laron Pottsdano Other [employer] Other 11-06-2021 14:15-0400 SaO2% (BldA) [Mass fraction] 95 % Laron Pottsdano Other [employer] Other 11-06-2021 14:15-0400 Systolic blood pressure 142 mm[Hg] Stewbrigette Pottsdano Other [employer] Other 05-30-2021 12:00-0400 Body height 162.56 cm Lety Flynn Other [employer] Other 05-30-2021 12:00-0400 Body mass index (BMI) [Ratio] 24.37 kg/m2 Lety Flynn Other [employer] Other 05-30-2021 12:00-0400 Body temperature 97 [degF] Lety Kaple Other [employer] Other 05-30-2021 12:00-0400 Body weight 64.41 kg Lety Triplettortega Other [employer] Other 05-30-2021 12:00-0400 Diastolic blood pressure 60 mm[Hg] Lety Uzielle Other [employer] Other 05-30-2021 12:00-0400 Respiratory rate 18 /min Lety Kaple Other [employer] Other 05-30-2021 12:00-0400 SaO2% (BldA) [Mass fraction] 98 % Lety Uzielle Other [employer] Other 05-30-2021 12:00-0400 Systolic blood pressure 100 mm[Hg] Lety Uzielle Other [employer] Other 04-28-2021 12:30-0400 Body height 162.56 cm Lety Kaportega Other [employer] Other 04-28-2021 12:30-0400 Body temperature 97.6 [degF] Lety Gee Other [employer] Other 04-28-2021 12:30-0400 Diastolic blood pressure 66 mm[Hg] Lety Uzielle Other [employer] Other 04-28-2021 12:30-0400 Respiratory rate 18 /min Lety Uzielle Other [employer] Other 04-28-2021 12:30-0400 SaO2% (BldA) [Mass fraction] 97 % Lety Gee Other [facility] [employer] Other 04-28-2021 12:30-0400 Systolic blood pressure 111 mm[Hg] Lety Gee Other [facility] [employer] Other Encounters Encounter Date Encounter Type Care Provider Facility Start: 01-08-2025 Registered Recurring Pet[facility] Start: 01-08-2025 End: 01-08-2025 ambulatory Petra DeWilde DO Work Phone: [facility] Work Phone: Start: 01-08-2025 End: 01-08-2025 Patient encounter procedure Petra DeWilde DO Work Phone: [facility] Work Phone: Start: 01-01-2025 End: 01-01-2025 ambulatory Petra DeWilde DO Work Phone: [facility] Work Phone: Start: 01-01-2025 End: 01-01-2025 Patient encounter procedure Petra DeWilde DO Work Phone: [facility] Work Phone: Start: 12-17-2024 Registered Recurring Petra D eWilde DO [facility] Work [facility]: Start: 12-17-2024 End: 12-17-2024 Patient encounter procedure Petra DeWilde DO Work Phone: [facility] Start: 12-17-2024 End: 12-17-2024 ambulatory Petra DeWilde Facility:[facility] Start: 12-17-2024 End: 12-21-2024 External Result Encounter Pete Erazo DO Work Phone: [facility] External Department Unsolicited Start: 12-17-2024 End: 12-21-2024 External Result Encounter Pete Erazo DO Work Phone: [facility] External Department Unsolicited Start: 10-21-2024 End: 10-21-2024 ambulatory Petra DeWilde DO Work Phone: [facility] Work Phone: Start: 10-21-2024 End: 10-21-2024 Patient encounter procedure Petra DeWilde DO Work Phone: [facility] Physician [facility] Work Phone: Start: 07-24-2024 End: 07-24-2024 ambulatory Petra DeWilde Facility:[facility] Start: 07-24-2024 End: 07-24-2024 Patient encounter procedure Petra DeWilde DO Work Phone: [facility] Start: 07-22-2024 End: 07-22-2024 Patient encounter procedure Petra DeWilde DO Work Phone: [facility] Work Phone: Start: 07-22-2024 End: 07-22-2024 ambulatory Petra DeWilde Facility:[facility] Start: 07-22-2024 End: 07-22-2024 Patient encounter procedure Petra DeWilde DO Work Phone: [facility] Phys[facility] Work Phone: Start: 04-07-2024 End: 04-07-2024 ambulatory DNP Lety Gee Work Phone: [facility] Work Phone: Start: 04-07-2024 End: 04-07-2024 Patient encounter procedure DNP Lety Flynn Work Phone: [facility] Work Phone: Start: 04-01-2024 Non-patient / Non-visit DNP Lety Flynn Work Phone: [facility] Work Phone: Start: 03-03-2024 End: 03-03-2024 Patient encounter procedure DNP Lety Flynn Work Phone: [facility] Start: 03-03-2024 End: 03-03-2024 ambulatory DNP Lety Flynn Work Phone: [facility] Work Phone: Start: 02-27-2024 End: 02-27-2024 ambulatory DNP Lety Flynn Work Phone: [facility] Work Phone: Start: 02-27-2024 End: 02-27-2024 Patient encounter procedure [facility] Work Phone: Start: 02-18-2024 End: 02-18-2024 ambulatory Cinthya X Orzech Facility[facility] Start: 02-18-2024 End: 02-18-2024 Lab Drop off Cinthya X Orzech [facility] Start: 02-18-2024 End: 02-18-2024 ambulatory Cinthya X Orzech [facility] Start: 02-18-2024 End: 02-18-2024 Patient encounter procedure Cinthya X Orzech [facility] Start: 02-04-2024 End: 02-04-2024 ambulatory Cinthya X Orzech Facility:[facility] Start: 02-04-2024 End: 02-04-2024 Patient encounter procedure [facility] X Orzech [facility] Start: 01-14-2024 End: 01-14-2024 ambulatory Cinthya X Orzech Facility:[facility] Start: 01-14-2024 End: 01-14-2024 Patient encounter procedure [facility]inth[facility] X Orzech [facility] Start: 12-17-2023 End: 12-17-2023 ambulatory Cinthya X Orzech Facility:[facility] Start: 12-17-2023 End: 12-17-2023 Patient encounter procedure Cinthya X Orzech [facility] Start: 12-10-2023 End: 12-10-2023 ambulatory [facility] Work Phone: Start: 12-10-2023 End: 12-10-2023 Patient encounter procedure [facility] Work Phone: Start: 12-06-2023 Non-patient / Non-visit [facility] Work Phone: Start: 09-17-2023 End: 09-17-2023 ambulatory Garcia TURNER Facility:[facility] Start: 09-17-2023 End: 09-17-2023 Patient encounter procedure Garcia TURNER [facility] Start: 09-09-2023 End: 09-09-2023 ambulatory Lety Flynn Other [facility] [employer] Other Start: 09-09-2023 Telephone encounter Lety De La Torre [facility] Start: 09-05-2023 End: 09-05-2023 ambulatory Ltey Flynn Other [employer] Other Start: 09-05-2023 Telephone encounter Lety [facility] Start: 08-12-2023 End: 08-12-2023 ambulatory Garcia TURNER Facility:[facility] Start: 08-12-2023 End: 08-12-2023 Patient encounter procedure Garcia TURNER [facility] Start: 07-23-2023 End: 07-23-2023 ambulatory Lety Flynn Other [employer] Other Start: 07-23-2023 Telephone encounter Lety De [facility] Start: 07-02-2023 End: 07-02-2023 ambulatory Imad Asaad Other [employer] Other Start: 07-02-2023 [facility] visit new patient Imad Asaad [facility] Start: 06-11-2023 End: 06-11-2023 ambulatory Garcia TURNER Facility:[facility] Start: 06-11-2023 End: 06-11-2023 Patient encounter procedure Garcia TURNER [facility] Start: 05-20-2023 End: 05-20-2023 Lab Drop off Garcia TURNER [facility] Start: 05-20-2023 Telephone encounter Joshua Watts [facility] Start: 05-20-2023 End: 05-20-2023 ambulatory Garcia TURNER [facility] [employer] Other Start: 05-20-2023 End: 05-20-2023 Patient encounter procedure Garcia TURNER [facility] Start: 05-17-2023 End: 05-17-2023 Registered Recurring DNP Lety Flynn Work Phone: [facility] Work Phone: Start: 05-17-2023 End: 05-17-2023 ambulatory DNP Lety Flynn Work Phone: [facility] Work Phone: Start: 05-17-2023 Telephone encounter Lety De La Torre [facility] Start: 05-16-2023 End: 05-16-2023 ambulatory Lety Kaportega Other [employer] Other Start: 05-16-2023 Telephone encounter Lety De La Torre [facility] Start: 05-15-2023 End: 05-15-2023 ambulatory DNP Lety Flynn Work Phone: [facility] Work Phone: Start: 05-15-2023 End: 05-15-2023 Patient encounter procedure DNP Lety Flynn Work Phone: [facility] Work Phone: Start: 05-13-2023 End: 05-13-2023 ambulatory Lety Kaportega Other [employer] Other Start: 05-13-2023 Telephone encounter Lety De [facility] Torre [facility] Start: 05-09-2023 End: 05-09-2023 ambulatory Lety Gee Other [employer] Other Start: 05-09-2023 Telephone encounter Lety De La Torre [facility] Start: 05-06-2023 End: 05-06-2023 ambulatory Lety Kaple Other [employer] Other Start: 05-06-2023 Telephone encounter Lety Uzielle F [facility] Start: 05-01-2023 Telephone encounter Lety Uzielle [facility] Start: 05-01-2023 End: 05-01-2023 ambulatory DNP Lety Triplettle Work Phone: [facility] Work Phone: Start: 05-01-2023 End: 05-01-2023 Patient encounter procedure DNP Lety Flynn Work Phone: [facility] Start: 04-30-2023 End: 04-30-2023 ambulatory Lety Kaple Other [employer] Other Start: 04-30-2023 Office outpatient visit 40 minutes Lety Flynn [facility] Start: 04-30-2023 Telephone encounter Lety Kaple [facility] Start: 04-25-2023 End: 04-25-2023 ambulatory Lety Kaple Other [employer] Other Start: 04-25-2023 Telephone encounter Lety Uzielle F [facility] Start: 04-22-2023 End: 04-22-2023 ambulatory LETY KAPLE Facility:[facility] Start: 04-17-2023 End: 04-17-2023 ambulatory Lety Kaple Other [employer] Other Start: 04-17-2023 Telephone encounter Lety Uzielle F [facility] Start: 04-16-2023 ambulatory LETY KAPLE Facility :[facility] Start: 04-16-2023 End: 04-16-2023 ambulatory DNP Lety Kaple Work Phone: [facility] Work Phone: Start: 04-16-2023 End: 04-16-2023 Patient encounter procedure DNP Lety Flynn Work Phone: [facility] Start: 04-15-2023 End: 04-15-2023 ambulatory Lety Flynn Other [employer] Other Start: 04-15-2023 Telephone encounter Lety De La Torre [facility] Start: 04-12-2023 End: 04-12-2023 ambulatory Lety Flynn Other [employer] Other Start: 04-12-2023 Office outpatient visit 40 minutes Lety Flynn [facility] Start: 04-12-2023 End: 04-12-2023 Emergency department patient visit DNP Lety Flynn Work Phone: [facility] Work Phone: Start: 04-01-2023 End: 04-01-2023 ambulatory Lety Flynn Other [employer] Other Start: 04-01-2023 Telephone encounter Lety De La Torre [facility] Start: 02-26-2023 End: 02-26-2023 ambulatory Cornel Lopez Other [employer] Other Start: 02-26-2023 Office outpatient ne w 45 minutes Cornel Olexa [facility] Start: 02-26-2023 End: 02-26-2023 Patient encounter procedure DNP Lety Flynn Work Phone: [facility] Start: 01-03-2023 End: 01-03-2023 ambulatory Letyjaimee Triplettortega Other [employer] Other Start: 01-03-2023 Office outpatient visit 25 minutes Lety Flynn [facility] Start: 11-05-2022 End: 11-05-2022 ambulatory Laron Gomes Other [employer] Other Start: 11-05-2022 Office outpatient visit 15 minutes Laron Gomes [facility] Start: 09-18-2022 End: 09-18-2022 ambulatory Lety Flynn Other [employer] Other Start: 09-18-2022 Telephone encounter Lety Flynn [facility] Start: 09-14-2022 End: 09-14-2022 ambulatory DNP Lety Flynn Work Phone: [facility] Work Phone: Start: 09-14-2022 End: 09-14-2022 Patient encounter procedure DNP Lety Flynn Work Phone: [facility]-Nuc Med [facility] Work Phone: Start: 09-11-2022 End: 09-11-2022 ambulatory Lety Flynn Other [employer] Other Start: 09-11-2022 Telephone encounter Lety Gee [facility] Start: 09-07-2022 ambulatory Facility:[id number] Start: 09-07-2022 End: 09-07-2022 ambulatory DNP Lety Triplettle Work Phone: [facility] Work Phone: Start: 09-07-2022 End: 09-07-2022 Patient encounter procedure DNP Lety Triplettle Work Phone: [facility]-Electrodiagnostics Work Phone: Start: 09-03-2022 End: 09-03-2022 ambulatory Lety Gee Other [employer] Other Start: 09-03-2022 Patient encounter procedure Lety Triplettortega [facility] Start: 08-24-2022 End: 08-24-2022 ambulatory DNP Lety Flynn Work Phone: [facility] Work Phone: Start: 08-24-2022 End: 08-24-2022 Registered Recurring DNP Lety Flynn Work Phone: [facility]Cancer Center Work Phone: Start: 07-16-2022 End: 07-16-2022 ambulatory Lety Flynn Other [employer] Other Start: 07-16-2022 Telephone encounter Lety Gee [facility] Start: 07-11-2022 End: 07-11-2022 ambulatory DNP Lety Flynn Work Phone: [facility] Work Phone: Start: 07-11-2022 End: 07-11-2022 Discharged Recurring DNP Lety Flynn Work Phone: [facility] Start: 06-18-2022 End: 06-18-2022 ambulatory Laron Benderno Other [employer] Other Start: 06-18-2022 Office outpatient visit 25 minutes Christjoseer Mireya [facility] Start: 06-12-2022 End: 06-12-2022 ambulatory Lety Gee Other [employer] Other Start: 06-12-2022 Office outpatient visit 25 minutes Lety Gee [facility] Start: 06-04-2022 End: 06-04-2022 ambulatory Mckenzie Bates Other [employer] Other Start: 06-04-2022 Office outpatient visit 15 minutes Mckenzie Jana [facility] Start: 06-01-2022 End: 06-01-2022 ambulatory Lety Flynn Other [employer] Other Start: 06-01-2022 Telephone encounter Lety Gee [facility] Start: 05-21-2022 End: 05-21-2022 ambulatory Lety Flynn Other [employer] Other Start: 05-21-2022 Telephone encounter Lety Triplettortega [facility] Start: 05-18-2022 End: 05-18-2022 ambulatory DNP Lety Flynn Work Phone: [facility] Work Phone: Start: 05-18-2022 End: 05-18-2022 Registered Recurring DNP Lety Flynn Work Phone: [facility] Start: 05-18-2022 Registered Recurring DNP Sammie Flynn Work Phone: [facility] Start: 05-16-2022 End: 05-16-2022 ambulatory DNP Lety Flynn Work Phone: [facility] Work Phone: Start: 05-16-2022 End: 05-16-2022 Patient encounter procedure DNP Leyt Flnyn Work Phone: [facility]-Pet Scan Start: 05-11-2022 End: 05-11-2022 ambulatory Lety Flynn Other [employer] Other Start: 05-11-2022 Telephone encounter Lety Triplettortega [facility] Start: 05-10-2022 End: 05-10-2022 ambulatory DNP Lety Flynn Work Phone: [facility] Work Phone: Start: 05-10-2022 End: 05-10-2022 Patient encounter procedure DNP Lety Flynn Work Phone: [facility] Start: 05-07-2022 End: 05-07-2022 ambulatory Lety Flynn Other [employer] Other Start: 05-07-2022 Telephone encounter Lety De [facility] Start: 05-02-2022 End: 05-02-2022 Patient encounter procedure DNP Lety Gee Work Phone: [facility] Start: 05-02-2022 End: 05-02-2022 ambulatory DNP Lety Gee Work Phone: [employer] Other Start: 05-02-2022 Office outpatient visit 40 minutes Lety Flynn [facility] Start: 01-12-2022 End: 01-12-2022 ambulatory Juliana Cassi Other [employer] Other Start: 01-12-2022 Telephone encounter Juliana Cassi [facility] Start: 11-06-2021 End: 11-06-2021 ambulatory Laron Gomes Other [employer] Other Start: 11-06-2021 Office outpatient visit 25 minutes Laron Pottsdano [facility] Start: 10-03-2021 End: 10-03-2021 ambulatory Laron Pottsdano Other [employer] Other Start: 10-03-2021 Telephone encounter Laron esquivel [facility] Start: 08-11-2021 End: 08-11-2021 ambulatory Lety Flynn Other [employer] Other Start: 08-11-2021 Telephone encounter Lety Triplettortega [facility] Start: 08-10-2021 End: 08-10-2021 ambulatory Lety Flynn Other [employer] Other Start: 08-10-2021 Telephone encounter Lety Triplettortega [facility] Start: 05-30-2021 Office outpatient visit 25 minutes Lety Flynn [facility] Start: 05-30-2021 Telephone encounter Laron rangelo [facility] Start: 05-04-2021 Telephone encounter Anatoliy Nunez [facility] Start: 04-28-2021 Nursing evaluation o f patient and report Lety Gee [facility] Start: 01-10-2016 Adult health examination Lety Triplettortega Other [employer] Other Procedures Date Procedure Procedure Detail Performing Clinician Start: 01-06-2025 CT of chest without contrast Petra Holliday DO Work Phone: Start: 12-17-2024 Comprehensive metabolic panel Pete Erazo DO Work Phone: Start: 12-17-2024 Complete blood count with white cell differential, automated Pete Erazo DO Work Phone: Start: 09-17-2023 Cystoscopy Cinthya Orlyndon lei Start: 09-17-2023 Cystourethroscopy wi th dilation of urethral stricture Cinthya Orzech Start: 06-11-2023 Cystourethroscopy wi th dilation of urethral stricture Cinthya Orzech Start: 05-15-2023 Computed tomography of abdomen and pelvis with contrast DNP Lety Gee Work Phone: Start: 05-01-2023 Urine culture DNP Sammie jaclyn Gee Work Phone: Start: 04-12-2023 Urine culture DNP Sammie Flynn Work Phone: Start: 04-12-2023 CT angiography of thorax SARA Flynn Work Phone: Start: 04-12-2023 CT of abdomen and pe lvis without contrast SARA Flynn Work Phone: Start: 04-12-2023 CT of head without contrast SARA Flynn Work Phone: Start: 02-26-2023 Pelvis X-ray DNP Zainab Flynn Work Phone: Start: 02-26-2023 Plain X-ray of right shoulder SARA Flynn Work Phone: Start: 09-07-2022 Screening mammograph y of bilateral breasts SARA Flynn Work Phone: Start: 08-20-2022 CT of thorax with contrast SARA Flynn Work Phone: Start: 08-20-2022 Computed tomography of abdomen and pelvis with contrast SARA Flynn Work Phone: Start: 05-16-2022 Positron emission to mography with computed tomography SARA Flynn Work Phone: Start: 05-10-2022 CT of chest without contrast SARA Flynn Work Phone: Appendectomy Garcia TURNER Procedure on lower leg Sunri kimber TURNER Plan of Treatment Date Care Activity Detail Author Start: 10-21-2024 Patient referral [facility] Work Phone: Start: 09-14-2022 Radionuclide myocardial perfusion stress study NM aidan perf SPECT rest & str [facility] Start: 05-18-2022 [facility] Start: 05-16-2022 Positron emission tomography with computed tomography PET tumor init tx strat sb-mt [facility] Albumin [Mass/volume ] in Serum or Plasma [facility] Work Phone: Albumin/Globulin ratio [facility] Work Phone: Bacteria identified in Urine by Culture [facility] Comprehensive metabo lic 1999 panel - Serum or Plasma [facility] Comprehensive metabo lic 1999 panel - Serum or Plasma [facility] Comprehensive metabo lic 1999 panel - Serum or Plasma [facility] Comprehensive metabo lic 1999 panel - Serum or Plasma [facility] Comprehensive metabo lic 1999 panel - Serum or Plasma [facility] CT Abdomen and Pelvi s W contrast IV [facility] CT Chest WO contrast [facility] Chest WO contrast [facility] Electrophoresis: [id number] [facility] Work Phone: Electrophoresis: [id number] [facility] Work Phone: Electrophoresis: beta-globulin [facility] Work Phone: Electrophoresis: cydney ma globulin [facility] Work Phone: Erythrocyte sediment ation rate by Photometric method [facility] Globulin [Mass/volum e] in Serum [facility] Work Phone: Glucose measurement estimated from glycated hemoglobin [facility] Work Phone: Hemoglobin A1c/Hemoglobin.total in Blood [facility] Work Phone: IgA [Mass/volume] in Serum or Plasma [facility] Work Phone: IgG [Mass/volume] in Serum or Plasma [facility] Work Phone: IgM [Mass/volume] in Serum or Plasma [facility] Work Phone: [place] light chains.f ree [Mass/volume] in Serum [facility] Work Phone: [place] light chains.free/Lambda light chains.free [Mass Ratio] in Serum [facility] Work Phone: Lambda light chains. free [Mass/volume] in Serum or Plasma [facility] Work Phone: MG Breast - bilatera l Screening [facility] Patient Education [facility] Work Phone: Protein [Mass/volume ] in Serum or Plasma [facility] Work Phone: Protein electrophore sis, serum Protein electrophoresis, serum Lab Routine 12/17/2024 2:40 PM EDT [facility] Work Phone: [facility] Immunizations Immunization Date Immunization Notes Care Provider Keerthi escobar 04-19-2022 influenza, seasonal, injectable Lety Flynn Other [facility] 05-16-2021 COVID-19 Vaccine Pfi zer - Documentation Purposes Only Lety Flynn Other [facility] 04-28-2021 influenza virus vaccine, unspecified formulation [facility] 04-28-2021 influenza, high dose seasonal, preservative-free Lety Kaple Other [facility] [employer] Other 09-26-2020 COVID-19 Vaccine Pfi zer - Documentation Purposes Only Lety Flynn Other [facility] 09-05-2020 COVID-19 Vaccine Pfi zer - Documentation Purposes Only Letyjaimee Flynn Other [facility] 04-21-2020 influenza, high dose seasonal, preservative-free Lety Kaple Other [facility] [employer] Other 04-21-2020 influenza virus vaccine, unspecified formulation [facility] 06-24-2019 influenza virus vaccine, unspecified formulation [facility] 06-24-2019 influenza, high dose seasonal, preservative-free Lety Kaple Other [facility] [employer] Other 06-24-2019 pneumococcal conjuga te vaccine, 13 valent Lety Flynn Other [facility] 10-27-2017 tetanus and diphther ia toxoids, adsorbed, preservative free, for adult use (5 Lf of tetanus toxoid and 2 Lf of diphtheria toxoid) [facility] 10-27-2017 tetanus toxoid, redu libby diphtheria toxoid, and acellular pertussis vaccine, adsorbed Lety Flynn Other [facility] 06-21-2015 influenza, injectabl e, quadrivalent, contains preservative Lety Flynn Other [facility] [employer] Other 06-21-2015 influenza, injectabl e, quadrivalent, preservative free [facility] 06-29-2013 influenza, injectabl e, quadrivalent, contains preservative Lety Flynn Other [facility] Payers Date Payer Category Payer Self-pay [id number] 2022 Medicare [id number] 2022 Medicare [id number] 2022 Unknown [id number] 2010 Medicare MEDICARE [id number] 1945 Unknown [id number] 2.16.840.1.427728.3.579.2. 356 1945 Unknown [id number] 2.16.840.1.387381.3.579.2. 727 1945 Unknown [id number] 2.16.840.1.363258.3.579.2. 727 1945 Unknown [id number] 2.16.840.1.599090.3.579.2. 727 1945 Unknown [id number] 2.16.840.1.180235.3.579.2. 72 1945 Unknown [id number] 2.16.840.1.053246.3.579.2. 727 1945 Unknown [id number] 2.16.840.1.593935.3.579.2. 72 1945 Unknown [id number] 2.16.840.1.658177.3.579.2. 72 1945 Unknown [id number] 2.16.840.1.646922.3.579.2. 72 1945 Unknown [id number] 2.16.840.1.564001.3.579.2. 727 Private Health Insurance [employer] [id number]. [id number] Unknown [id number] 2.16.840.1.417661.3.579.2. 531 Unknown [id number] 2.16840.1.083089.3.579.2. 531 Unknown [id number] 2.16.840.1.041339.3.579.2. 531 Unknown [id number] 2.16.840.1.382731.3.579.2. 531 Unknown [id number] 2.16.840.1.068567.3.579.2. 531 Unknown [id number] 2..840.1.966329.3.579.2. 531 Unknown [id number] 2.16.840.1.722465.3.579.2. 531 Social History Date Type Detail Facility Unknown if ever smoked [employer] Other Sex Assigned At [facility] Start: 04-22-2019 End: 04-07-2024 Tobacco smoking status NHIS Ex-smoker (finding) [facility] Start: 1945 Sex Assigned At Female F [facility] Start: 04-12-2023 End: 07-16-2023 Tobacco smoking status NHIS Never smoked tobacco (finding) [facility] Tobacco smoking status Never [facility] Start: 08-21-2024 End: 01-08-2025 Sex Female (finding) [facility] Tobacco smoking status TXIS Tobacco smoking consumption unknown [facility] Start: 1945 Sex assigned at Not on file [facility] Functional Status Date Assessment Result Facility 02-18-2024 Functional Status N/A [facility] 09-17-2023 Functional Status N/A [facility] 06-07-2023 Functional Status N/A [facility] 05-20-2023 Functional Status N/A [facility] Clinical Notes 05-30-2021 to 10-21-2024 Note Date & Type Note Facility 10-21-2024 Evaluation note Diagnosis Onset Date Resolution MGUS (monoclonal gammopathy of unknown significance) acute October 21, 2024 10:57am Peripheral neuropathy acute Mar 2024 10:57am Vitamin B12 deficiency acute [facility] 2024 10:57am Breast cancer screening by mammogram noneactive October 10:57am [facility] Work Phone: 1(960) 285-966612-18-2024 Evaluation note* Diagnosis Onset Date Resolution Status Admit Date Peripheral neuropathy acute Dec ember 2023 11:05am [facility] Work Phone: 1(289) 733-892907-16-2024 Hospital Discharge instructions Patient Education 02/18/2024 12:04:17 Dietary Guidelines to Help Prevent Kidney Stones Dietary Guidelines to Help Prevent Kidney Stones Kidney stones are deposits of minerals and salts that form inside your kidneys. Your risk of developing kidney stones may be greater depending on your diet, your lifestyle, the medicines you take, and whether you have certain medical conditions. Most people can lower their risks of developing kidney stones by following these dietary guidelines. Your dietitian may give you more specific instructions depending on your overall health and the type of kidney stones you tend to develop. What are tips for following this plan? Reading food labels Choose foods with no salt added or low-salt labels. Limit your salt (sodium) intake to less than 1,500 mg a day. Choose foods with calcium for each meal and snack. Try to eat about 300 mg of calcium at each meal.Foods that contain 200 500 mg of calcium a serving include: ?8 oz (237 mL) of milk, dbdzjig-qtqjfcadrxbk-ydxgo milk, and calcium- fortifiedfruit juice. Calcium-fortified means that calcium has been added to these drinks. ?8 oz (237 mL) of kefir, yogurt, and soy yogurt. ?4 oz (114 g) of tofu. ?1 oz (28 g) of cheese. ?1 cup (150 g) of dried figs. ?1 cup (91 g) of cooked broccoli. ?One 3 oz (85 g) can of sardines or mackerel. Most people need 1,000 1,500 mg of calcium a day. Talk to your dietitian about how much calcium is recommended for you. Shopping Buy plenty of fresh fruits and vegetables. Most people do not need to avoid fruits and vegetables, even if these foods contain nutrients that may contribute to kidney stones. When shopping for convenience foods, choose: ?Whole pieces of fruit. ?Pre-made salads with dressing on the side. ?Low-fat fruit and yogurt smoothies. Avoid buying frozen meals or prepared deli foods. These can be high in sodium. Look for foods with live cultures, such as yogurt and kefir. Choose high-fiber grains, such as whole-wheat breads, oat bran, and wheat cereals. Cooking Do not add salt to food when cooking. Place a salt shaker on the table and allow each person to addtheir own salt to taste. Use vegetable protein, such as beans, textured vegetable protein (TVP), or tofu, instead of meat inpasta, casseroles, and soups. Meal planning Eat less salt, if told by your dietitian. To do this: ?Avoid eating processed or pre-made food. ?Avoid eating fast food. Eat less animal protein, including cheese, meat, poultry, or fish, if told by your dietitian. To dothis: ?Limit the number of times you have meat, poultry, fish, or cheese each week. Eat a diet free of meat at least 2 days a week. ?Eat only one serving each day of meat, poultry, fish, or seafood. ?When you prepare animal proteins, cut pieces into small portion sizes. For most meat and fish, oneserving is about the size of the palm of your hand. Eat at least five servings of fresh fruits and vegetables each day. To do this: ?Keep fruits and vegetables on hand for snacks. ?Eat one piece of fruit or a handful of berries with breakfast. ?Have a salad and fruit at lunch. ?Have two kinds of vegetables at dinner. You may be told to limit foods that are high in a substance called oxalate. These include: ?Spinach (cooked), rhubarb, beets, sweet potatoes, and Vietnamese chard. ?Peanuts. ?Potato chips, gibraltarian fries, and baked potatoes with skin on. ?Nuts and nut products. ?Chocolate. If you regularly take a diuretic medicine, make sure to eat at least 1 or 2 servings of fruits or vegetables that are high in potassium each day. These include: ?Avocado. ?Banana. ?Jenners, prune, carrot, or tomato juice. ?Baked potato. ?Cabbage. ?Beans and split peas. Lifestyle Drink enough fluid to keep your urine pale yellow. This is the most important thing you can do. Spread your fluid intake throughout the day. If you drink alcohol: ?Limit how much you have to: ?0 1 drink a day for women who are not . ?0 2 drinks a day for men. ?Know how much alcohol is in your drink. In the [place] one drink equals one 12 oz bottle of beer (355 mL), one 5 oz glass of wine (148 mL), or one 1 oz glass of hard liquor (44 mL). Lose weight if told by your health care provider. Work with your dietitian to find an eating plan and weight loss strategies that work best for you. General information Talk to your health care provider and dietitian about taking daily supplements. Depending on your health and the cause of your kidney stones, you may be told: ?Do not take high-dose supplements of vitamin C (1,000 mg a day or more). ?To take a calcium supplement. ?To take a daily probiotic supplement. ?To take other supplements such as magnesium, fish oil, or vitamin B6. Take bdxz-nna-cprzxjh and prescription medicines only as told by your health care provider. These include supplements. What foods should I limit? Limit your intake of the following foods, or eat them as told by your dietitian. Vegetables Spinach. Rhubarb. Beets. Canned vegetables. Pickles. Olives. Baked potatoes with skin. Grains Wheat bran. Baked goods. Salted crackers. Cereals high in sugar. Meats and other proteins Nuts. Nut butters. Large portions of meat, poultry, or fish. Salted, precooked, or cured meats, such as sausages, meat loaves, and hot dogs. Dairy Cheeses. Beverages Regular soft drinks. Regular vegetable juice. Seasonings and condiments Seasoning blends with salt. Salad dressings. Soy sauce. Ketchup. Barbecue sauce. Other foods Canned soups. Canned pasta sauce. Casseroles. Pizza. Lasagna. Frozen meals. Potato chips. Algerian fries. The items listed above may not be a complete list of foods and beverages you should limit. Contact a dietitian for more information. What foods should I avoid? Talk to your dietitian about specific foods you should avoid based on the type of kidney stones youhave and your overall health. Fruits Grapefruit. The item listed above may not be a complete list of foods and beverages you should avoid. Contact adietitian for more information. Summary Kidney stones are deposits of minerals and salts that form inside your kidneys. You can lower your risk of kidney stones by making changes to your diet. The most important thing you can do is drink enough fluid. Drink enough fluid to keep your urine pale yellow. Talk to your dietitian about how much calcium you should have each day, and eat less salt and animal protein as told by your dietitian. This information is not intended to replace advice given to you by your health care provider. Make sure you discuss any questions you have with your health care provider. Document Revised: 11/01/2022 Document Reviewed: 11/01/2022 [employer] Patient Education 2022 [employer]. 02/18/2024 12:04:15 Kidney Stones, Skst-oz-Nahh Kidney Stones Kidney stones are rock-like masses that form inside of the kidneys. Kidneys are organs that make pee (urine). A kidney stone may move into other parts of the urinary tract, including: The tubes that connect the kidneys to the bladder (ureters). The bladder. The tube that carries urine out of the body (urethra). Kidney stones can cause very bad pain and can block the flow of pee. The stone usually leaves your body (passes) through your pee. You may need to have a doctor take out the stone. What are the causes? Kidney stones may be caused by: A condition in which certain glands make too much parathyroid hormone (primary hyperparathyroidism). A buildup of a type of crystals in the bladder made of a chemical called uric acid. The body makes uric acid when you eat certain foods. Narrowing (stricture) of one or both of the ureters. A kidney blockage that you were born with. Past surgery on the kidney or the ureters, such as gastric bypass surgery. What increases the risk? You are more likely to develop this condition if: You have had a kidney stone in the past. You have a family history of kidney stones. You do not drink enough water. You eat a diet that is high in protein, salt (sodium), or sugar. You are overweight or very overweight (obese). What are the signs or symptoms? Symptoms of a kidney stone may include: Pain in the side of the belly, right below the ribs (flank pain). Pain usually spreads (radiates) to the groin. Needing to pee often or right away (urgently). Pain when going pee (urinating). Blood in your pee (hematuria). Feeling like you may vomit (nauseous). Vomiting. Fever and chills. How is this treated? Treatment depends on the size, location, and makeup of the kidney stones. The stones will often pass out of the body through peeing. You may need to: Drink more fluid to help pass the stone. In some cases, you may be given fluids through an IV tube put into one of your veins at the hospital. Take medicine for pain. Make changes in your diet to help keep kidney stones from coming back. Sometimes, medical procedures are needed to remove a kidney stone. This may involve: A procedure to break up kidney stones using a beam of light (laser) or shock waves. Surgery to remove the kidney stones. Follow these instructions at home: Medicines Take dmhu-pnh-pipllrd and prescription medicines only as told by your doctor. Ask your doctor if the medicine prescribed to you requires you to avoid driving or using heavy machinery. Eating and drinking Drink enough fluid to keep your pee pale yellow. You may be told to drink at least 8 10 glasses of water each day. This will help you pass the stone. If told by your doctor, change your diet. This may include: ?Limiting how much salt you eat. ?Eating more fruits and vegetables. ?Limiting how much meat, poultry, fish, and eggs you eat. Follow instructions from your doctor about eating or drinking restrictions. General instructions Collect pee samples as told by your doctor. You may need to collect a pee sample: ?24 hours after a stone comes out. ?8 12 weeks after a stone comes out, and every 6 12 months after that. Strain your pee every time you pee (urinate), for as long as told. Use the strainer that your doctor recommends. Do not throw out the stone. Keep it so that it can be tested by your doctor. Keep all follow-up visits as told by your doctor. This is important. You may need follow-up tests. How is this prevented? To prevent another kidney stone: Drink enough fluid to keep your pee pale yellow. This is the best way to prevent kidney stones. Eat healthy foods. Avoid certain foods as told by your doctor. You may be told to eat less protein. Stay at a healthy weight. Where to find more information National Kidney Foundation (NKF): www.kidney.org U[employer] Foundation (UCF): www.urologyhealth.org Contact a doctor if: You have pain that gets worse or does not get better with medicine. Get help right away if: You have a fever or chills. You get very bad pain. You get new pain in your belly (abdomen). You pass out (faint). You cannot pee. Summary Kidney stones are rock-like masses that form inside of the kidneys. Kidney stones can cause very bad pain and can block the flow of pee. The stones will often pass out of the body through peeing. Drink enough fluid to keep your pee pale yellow. This information is not intended to replace advice given to you by your health care provider. Make sure you discuss any questions you have with your health care provider. Document Revised: 03/26/2022 Document Reviewed: 03/26/2022 [employer] Patient Education 2022 [employer]. 02/18/2024 12:04:15 Hematuria, Adult Hematuria, Adult Hematuria is blood in the urine. Blood may be visible in the urine, or it may be identified with a test. This condition can be caused by infections of the bladder, urethra, kidney, or prostate. Otherpossible causes include: Kidney stones. Cancer of the urinary tract. Too much calcium in the urine. Conditions that are passed from parent to child (inherited conditions). Exercise that requires a lot of energy. Infections can usually be treated with medicine, and a kidney stone usually will pass through your urine. If neither of these is the cause of your hematuria, more tests may be needed to identify the cause of your symptoms. It is very important to tell your health care provider about any blood in your urine, even if it ispainless or the blood stops without treatment. Blood in the urine, when it happens and then stops and then happens again, can be a symptom of a very serious condition, including cancer. There is no pain in the initial stages of many urinary cancers. Follow these instructions at home: Medicines Take jong-frf-ierfyxq and prescription medicines only as told by your health care provider. If you were prescribed an antibiotic medicine, take it as told by your health care provider. Do notstop taking the antibiotic even if you start to feel better. Eating and drinking Drink enough fluid to keep your urine pale yellow. It is recommended that you drink 3 4 quarts (2.83.8 L) a day. If you have been diagnosed with an infection, drinking cranberry juice in addition tolarge amounts of water is recommended. Avoid caffeine, tea, and carbonated beverages. These tend to irritate the bladder. Avoid alcohol because it may irritate the prostate (in males). General instructions If you have been diagnosed with a kidney stone, follow your health care provider's instructions about straining your urine to catch the stone. Empty your bladder often. Avoid holding urine for long periods of time. If you are female: ?After a bowel movement, wipe from front to back and use each piece of toilet paper only once. ?Empty your bladder before and after sex. Pay attention to any changes in your symptoms. Tell your health care provider about any changes or any new symptoms. It is up to you to get the results of any tests. Ask your health care provider, or the department that is doing the test, when your results will be ready. Keep all follow-up visits. This is important. Contact a health care provider if: You develop back pain. You have a fever or chills. You have nausea or vomiting. Your symptoms do not improve after 3 days. Your symptoms get worse. Get help right away if: You develop severe vomiting and are unable to take medicine without vomiting. You develop severe pain in your back or abdomen even though you are taking medicine. You pass a large amount of blood in your urine. You pass blood clots in your urine. You feel very weak or like you might faint. You faint. Summary Hematuria is blood in the urine. It has many possible causes. It is very important that you tell your health care provider about any blood in your urine, even ifit is painless or the blood stops without treatment. Take ndel-fwk-wlcrnmd and prescription medicines only as told by your health care provider. Drink enough fluid to keep your urine pale yellow. This information is not intended to replace advice given to you by your health care provider. Make sure you discuss any questions you have with your health care provider. Document Revised: 03/22/2021 Document Reviewed: 03/22/2021 [employer] Patient Education 2022 [employer]. [facility] 07-16-2024 Evaluation + Plan note Diagnostic Tests Pending * Urine Culture 02/18/24 [facility]07-16[facility]2024 NotePatient Education Nephrology Dietary Guidelines to Help Prevent Kidney Stones Kidney stones are deposits of minerals and salts that form inside your kidneys. Your risk of developing kidney stones may be greater depending on your diet, your lifestyle, the medicines you take, and whether you have certain medical conditions. Most people can lower their risks of developing kidney stones by following these dietary guidelines. Your dietitian may give you more specific instructions depending on your overall health and the type of kidney stones you tend to develop. What are tips for following this plan? Reading food labels ? Choose foods with no salt added or low-salt labels. Limit your salt (sodium) intake to less than 1,500 mg a day. ? Choose foods with calcium for each meal and snack. Try to eat about 300 mg of calcium at each meal. Foods that contain 200?500 mg of calcium a serving include: ? 8 oz (237 mL) of milk, ttnfipi-suovbzkcqkym-krasl milk, and calcium- fortifiedfruit juice. Calcium-fortified means that calcium has been added to these drinks. ? 8 oz (237 mL) of kefir, yogurt, and soy yogurt. ? 4 oz (114 g) of tofu. ? 1 oz (28 g) of cheese. ? 1 cup (150 g) of dried figs. ? 1 cup (91 g) of cooked broccoli. ? One 3 oz (85 g) can of sardines or mackerel. Most people need 1,000?1,500 mg of calcium a day. Talk to your dietitian about how much calcium is recommended for you. Shopping ? Buy plenty of fresh fruits and vegetables. Most people do not need to avoid fruits and vegetables, even if these foods contain nutrients that may contribute to kidney stones. ? When shopping for convenience foods, choose: ? Whole pieces of fruit. ? Pre-made salads with dressing on the side. ? Low-fat fruit and yogurt smoothies. ? Avoid buying frozen meals or prepared deli foods. These can be high in sodium. ? Look for foods with live cultures, such as yogurt and kefir. ? Choose high-fiber grains, such as whole-wheat breads, oat bran, and wheat cereals. Cooking ? Do not add salt to food when cooking. Place a salt shaker on the table and allow each person to add their own salt to taste. ? Use vegetable protein, such as beans, textured vegetable protein (TVP), or tofu, instead of meat in pasta, casseroles, and soups. Meal planning ? Eat less salt, if told by your dietitian. To do this: ? Avoid eating processed or pre-made food. ? Avoid eating fast food. ? Eat less animal protein, including cheese, meat, poultry, or fish, if told by your dietitian. To do this: ? Limit the number of times you have meat, poultry, fish, or cheese each week. Eat a diet free of meat at least 2 days a week. ? Eat only one serving each day of meat, poultry, fish, or seafood. ? When you prepare animal proteins, cut pieces into small portion sizes. For most meat and fish, one serving is about the size of the palm of your hand. ? Eat at least five servings of fresh fruits and vegetables each day. To do this: ? Keep fruits and vegetables on hand for snacks. ? Eat one piece of fruit or a handful of berries with breakfast. ? Have a salad and fruit at lunch. ? Have two kinds of vegetables at dinner. ? You may be told to limit foods that are high in a substance called oxalate. These include: ? Spinach (cooked), rhubarb, beets, sweet potatoes, and Vietnamese chard. ? Peanuts. ? Potato chips, gibraltarian fries, and baked potatoes with skin on. ? Nuts and nut products. ? Chocolate. ? If you regularly take a diuretic medicine, make sure to eat at least 1 or 2 servings of fruits orvegetables that are high in potassium each day. These include: ? Avocado. ? Banana. ? Jenners, prune, carrot, or tomato juice. ? Baked potato. ? Cabbage. ? Beans and split peas. Lifestyle ? Drink enough fluid to keep your urine pale yellow. This is the most important thing you can do. Spread your fluid intake throughout the day. ? If you drink alcohol: ? Limit how much you have to: ? 0?1 drink a day for women who are not . ? 0?2 drinks a day for men. ? Know how much alcohol is in your drink. In the [place] one drink equals one 12 oz bottle of beer (355 mL), one 5 oz glass of wine (148 mL), or one 1? oz glass of hard liquor (44 mL). ? Lose weight if told by your health care provider. Work with your dietitian to find an eating planand weight loss strategies that work best for you. General information ? Talk to your health care provider and dietitian about taking daily supplements. Depending on yourhealth and the cause of your kidney stones, you may be told: ? Do not take high-dose supplements of vitamin C (1,000 mg a day or more). ? To take a calcium supplement. ? To take a daily probiotic supplement. ? To take other supplements such as magnesium, fish oil, or vitamin B6. ? Take pkkq-zyt-bxlnuki and prescription medicines only as told by your health care provider. Theseinclude suppleme (more content not included)...[facility]02-13-2024 Hospital Discharge instructions Patient Education 09/17/2023 13:25:40 EU - Cystoscopy Discharge Instructions (CUSTOM) Cystoscopy Voiding after the procedure: there may be some pain, burning, urgency, frequency and blood tinged urine following the procedure. These symptoms usually resolve within 2-5 days. Drink the amount of fluid it takes to keep the urine pink to yellow or clear in color. Drinking enough water and fluids will help to ease any discomfort after your procedure. If you are having problems that seem out of the ordinary, please call. If unable to contact your physician and you feel it is an emergency, go to the nearest emergency room or call 911 Diet you may resume your normal diet. Activity you may resume your normal activities Call if you have a fever over 100 degrees. Follow Up Care 08/19/2023 14:27:04 With:Garcia TURNER Address: [facility] [address] , [place] [address]- Business (1) When:12/16/2023 13:25:22 Comments:With a bladder scan [facility]02-13-2024 Note [id number] NoteCustom Cystoscopy ? Voiding after the procedure: there may be some pain, burning, urgency, frequency and blood tingedurine following the procedure. These symptoms usually resolve within 2-5 days. Drink the amount of fluid it takes to keep the urine pink to yellow or clear in color. Drinking enough water and fluids will help to ease any discomfort after your procedure. ? If you are having problems that seem out of the ordinary, please call. ? If unable to contact your physician and you feel it is an emergency, go to the nearest emergency room or call 911 ? Diet ? you may resume your normal diet. ? Activity ? you may resume your normal activities ? Call if you have a fever over 100 degrees.[facility] 07-23-2023 Evaluation note* Encounter Date Diagnosis Assessment Notes Treatment Notes Treatment Clinical Notes Jul, Chronic obstructive pulmonary disease, unspecified (ICD-10 - J44.9) [facility] Other 11-28-2023 Evaluation note* Encounter Date Diagnosis Assessment Notes Treatment Notes Treatment Clinical Notes Jun, Loss of appetite (ICD-10 - R63.0) Jun, Nausea (ICD-10 - R11.0) Jun, Trouble swallowing (ICD-10 - R13.10) [facility] Other 11-07-2023 Hospital Discharge instructions Patient Education 06/11/2023 15:25:11 EU - Cystoscopy Discharge Instructions (CUSTOM) Cystoscopy Voiding after the procedure: there may be some pain, burning, urgency, frequency and blood tinged urine following the procedure. These symptoms usually resolve within 2-5 days. Drink the amount of fluid it takes to keep the urine pink to yellow or clear in color. Drinking enough water and fluids will help to ease any discomfort after your procedure. If you are having problems that seem out of the ordinary, please call. If unable to contact your physician and you feel it is an emergency, go to the nearest emergency room or call 911 Diet you may resume your normal diet. Activity you may resume your normal activities Call if you have a fever over 100 degrees. Follow Up Care 05/20/2023 14:41:00 With:Garcia TURNER Address: [facility] [address], [place] [address]- Business (1) When: Unknown Comments:Office will call to schedule follow up [facility]11-07-2023 Note [id number] NoteCustom Cystoscopy ? Voiding after the procedure: there may be some pain, burning, urgency, frequency and blood tingedurine following the procedure. These symptoms usually resolve within 2-5 days. Drink the amount of fluid it takes to keep the urine pink to yellow or clear in color. Drinking enough water and fluids will help to ease any discomfort after your procedure. ? If you are having problems that seem out of the ordinary, please call. ? If unable to contact your physician and you feel it is an emergency, go to the nearest emergency room or call 911 ? Diet ? you may resume your normal diet. ? Activity ? you may resume your normal activities ? Call if you have a fever over 100 degrees.[facility] 05-23-2023 Progress note Author Radha Zayas [facility] May 23, 2023 11:16am Note Date/Time May 17, 2023 4 :14pm [facility] at [address] [address] Hem/Onc Follow Up Note - OP Signed Patient: Jose Kim MR#: [id number] : 1945 Acct:[id number] Age/Sex: 78 / F Type: REG RCR Copies to: SARA Tang II, DO~ Date of Service: 05/17/2023 Time of Service: 16:14 - Assessment & Plan (1) Pulmonary nodule Plan: She has multiple small subcentimeter pulmonary nodules. They are not FDG avid on PET/CT, but this may be because they are too small. They are not amenable to biopsy due to the size. They do not have particularly concerning neoplastic features with the exception of a right upper lobe spiculated appearing lesion. She has follow-up soon with pulmonology. repeat scan in aug 2022 stable nodules. cta chest Apr 2023 with stable nodules. 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 Immunofixation without monoclonality [place] lambda ratio is preserved. Elevated quantitative IgG. 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 She is extremely low likelihood of hematologic malignancy. No evidence of renal failure, anemia, hypercalcemia, bony lesions on CT imaging. Will repeat paraproteins with follow-up Jul 2023 Iron deficiency anemia Sept iron studies low per patient at pcp office She has not taken oral iron, will initiate ferrous sulfate 325mg daily at May 2023 visit PE diagnosed [facility] after hospitalization for UTI First DVT for patient On Eliquis Will request records before making final decision on recommended length of therapy Follow Up Instructions: start zofran prn for nausea start ferrous sulfate daily for MATTHIEU continue Eliquis cbc, cmp, iron studies, spep, sulaiman, flc, immunoglobulins in 2mo follow-up in 2mo refer to GI for consideration of endoscopy - History of Present Illness Chief Complaint: Patient is here today for a referral from Lety Chu for CTscan results and consult for Eliquis HPI: 77 year old female primary patient of Kyara Flynn NP. She lives in [facility] but gets all of her care through [facility]. Referred for elevated paraprotein labs, and jacques nodules. Past medical history of hyperlipidemia, hypertension. osteoporosis, psoriasis, copd, pneumonia. OUtpatient meds include vitamin D3, Stoilto Respimat, albuterold, atorvastatin. She was a smoker, quit at age 57, about a pack a day at most prior to this. She follows with Dr. Gomes for COPD. She having increasing short of breath and cough for the last 6 months. This was noticeable enough hat she called her PCP and is attempting to see Dr. Gomes. She had elevated total protein and Kyara Flynn sent SPEP sflc, no monclonality. elevated quanti IgG. K/L ratio of 2.55. on may [address] chest performed noted Calcified and noncalcified nodules arenoted in the area of nodularity accompanied by atelectasis or scarring at the right lung base. This measures up to 11 mm in greatest dimension. There is ongoing clinical concern for malignancy, follow-up with PET/CT or short-term interval follow-up with chest CT could BE recommended. No concerns for mediastinal or hilar adenopathy. Pet/ct on 05/17/22 notes No mass or adenopathy in the neck identified. No bonylesion seen in the neck. No abnormal neck hypermetabolic uptake identified. Increased uptake identified in the anterior portion of the oral cavity. This may be physiologic. There are multiple lung nodules measuring up to 11 mm redemonstrated. No associated hypermetabolism identified. Mildly hypermetabolic mediastinal and bilateral hilar lymph nodes identified. These may be reactive. No abnormal chest wall hypermetabolic uptake identified. Normal accumulation of liver identified. Normal physiologic uptake of the bowel noted. No abnormal hypermetabolic uptake seen. No abdominal mass or adenopathy identified. Uptake in the collecting system and ureter and bladder are likely physiologic. No soft tissue wall mass or fluid collection identified. No bony lesion seen. No abnormal hypermetabolic bone lesion seen. LEFT hip fixation changes. No abnormal hypermetabolic soft tissue uptake seen. IMPRESSION: Redemonstration of multiple bilateral lung nodules measuring up to11 mm. No associated hypermetabolism of lung nodules. Mediastinal and bilateral hilar lymph nodes. These may be reactive. May consider short-term follow-up assessment. 08/24/[address] c/a/p. ct a/p with diverticulosis, no itis. ct chest with stable similar nodularity, slight more atelectasis. she follows with Dr. Gomes who has changed her inhaled medications. 05/17/23 she has fatigue, has been mildly dyspneic without chest pain. (dyspnea is improved from PE dx) has restless legs no black or tarry stools. She has nausea quite a bit, no vomiting. Nearly all of the time, which keeps herfrom eating much. Has history of diverticulosis. Is overdue for endoscopy has some lower abdominal pain as well she has been having urinary symptoms and will see urology next week. hasa lot of questions related to this that were mostly deferred for urology input. She had a PE at [facility] after hospitalization. We will get records of this. She was started on Eliquis. We discussed Eliquis therapy is usually 306mo depending on other factors, we can confirm this once imaging and records are received. Her is adamant that her pcp will be the one that determines how long she will remain on Eliquis. Given this was her first DVT and provoked, she does not need additional coag work-up at this time. states her iron is low she was told last month. We recommend initiation of oral ferrous sulfate 325mg daily - Physical Exam ECOG PS: 0 General : patient is alert and oriented to person place and time, no acute distress. Neck: no JVD or thyromegaly. Lymph: no cervical, supraclavicular, axillary adenopathy. Heart: regular rate and rhythm no murmurs rubs or gallops. Abdomen: soft nontender nondistended, no hepatosplenomegaly. Lungs: cta bl, no wheezes, rales, rhonchi. Extremities: no clubbing cyanosis. - Time with Patient Coordination of Care & Counseling Time: Greater than 50% of time spent with patient was for coordination of care (as documented) and reyq-lf-gegz counseling of patient and/or family. [facility] - Medical History Medical History: Medical History (Last Reviewed 04/12/23 @ 13:24 by Ira Mcdowell RN) COPD (chronic obstructive pulmonary disease) High cholesterol Hypertension Psoriasis - Surgical History Surgical History: Surgical History (Last Reviewed 04/12/23 @ 13:24 by Ira Mcdowell RN) History of surgery left leg aileen and brace d/t fell down stair 10 years ago Hx of appendectomy age 16 - Family History Family History: Family History (Last Reviewed 06/13/22 @ 14:14 by Evelin Brooks RN) Father Diabetes Alzheimers disease Heart disease Stroke Hypertension Mother Stroke Breast cancer Hypertension - Social History Smoking Status: Never smoker Substance Use Type: Alcohol Additional Data - Additional Objective Data Height/Weight: Height 5 ft 5 in Weight 53.07 kg Vital Signs: 05/17/23 15:26 Temperature 98.4 F Pulse Rate [Right Brachial] 114 H Respiratory Rate 16 Blood Pressure [Right Arm] 119/62 02 Sat by Pulse Oximetry 92 L Oxygen Delivery Method Room Air - Lab Results Diagram of Most Recent CBC and CMP 08/20/22 09:35 08/20/22 09:35 - Home Medications and Allergies Allergies/Adverse Reactions: Allergies No Known Allergies Allergy (Verified 05/17/23 15:23) Home Medications: Home Medications albuterol sulfate 90 mcg/actuation aerosol inhaler (ProAir HFA) 1 - 2 puff inhalation Q4-6H PRN Shortness Of Breath 06/02/18 [History Confirmed 05/17/23] atorvastatin 20 mg tablet 20 mg PO DAILY 06/02/18 [History Confirmed 05/17/23] cholecalciferol (vitamin D3) 50 mcg (2,000 unit) capsule (Vitamin D3) 2,000 units PO DAILY 06/02/18 [History Confirmed 05/17/23] acetaminophen 325 mg tablet (Tylenol) 650 mg PO Q6H PRN Pain 04/12/23 [History Confirmed 05/17/23] apixaban 5 mg tablet (Eliquis) 5 mg PO BID 04/12/23 [History Confirmed 05/17/23] fluticasone fur. 200 mcg-umeclid 62.5 mcg-vilant 25 mcg inhalat.powder (Trelegy Ellipta) 1 inh inhalation DAILY 04/12/23 [History Confirmed 05/17/23] ondansetron 8 mg disintegrating tablet 8 mg PO Q8H PRN Nausea #30 tabs 05/17/23 [Rx] Dictated By: Radha Zayas APRN DD/ 1614 Signed By: <Electronically signed by TRENTON Zayas> 05/23/23 [address] [facility] Work Phone: [phone]) 173-176510-16-2023 Hospital Discharge instructions Patient Education 05/20/2023 14:26:50 Cystoscopy Cystoscopy Cystoscopy is a procedure that is used to help diagnose and sometimes treat conditions that affect the lower urinary tract. The lower urinary tract includes the bladder and the urethra. The urethra is the tube that drains urine from the bladder. Cystoscopy is done using a thin, tube-shaped instrument with a light and camera at the end (cystoscope). The cystoscope may be hard or flexible, depending on the goal of the procedure. The cystoscope is inserted through the urethra, into the bladder. Cystoscopy may be recommended if you have: Urinary tract infections that keep coming back. Blood in the urine (hematuria). An inability to control when you urinate (urinary incontinence) or an overactive bladder. Unusual cells found in a urine sample. A blockage in the urethra, such as a urinary stone. Painful urination. An abnormality in the bladder found during an intravenous pyelogram (IVP) or CT scan. Cystoscopy may also be done to remove a sample of tissue to be examined under a microscope (biopsy). Tell a health care provider about: Any allergies you have. All medicines you are taking, including vitamins, herbs, eye drops, creams, and husn-hpm-xsexvvd medicines. Any problems you or family members have had with anesthetic medicines. Any blood disorders you have. Any surgeries you have had. Any medical conditions you have. Whether you are or may be . What are the risks? Generally, this is a safe procedure. However, problems may occur, including: Infection. Bleeding. Allergic reactions to medicines. Damage to other structures or organs. What happens before the procedure? Medicines Ask your health care provider about: Changing or stopping your regular medicines. This is especially important if you are taking diabetes medicines or blood thinners. Taking medicines such as aspirin and ibuprofen. These medicines can thin your blood. Do not take these medicines unless your health care provider tells you to take them. Taking agpt-mko-ljgddft medicines, vitamins, herbs, and supplements. Tests You may have an exam or testing, such as: X-rays of the bladder, urethra, or kidneys. CT scan of the abdomen or pelvis. Urine tests to check for signs of infection. General instructions Follow instructions from your health care provider about eating or drinking restrictions. Ask your health care provider what steps will be taken to help prevent infection. These steps may include: ?Washing skin with a germ-killing soap. ?Taking antibiotic medicine. Plan to have a responsible adult take you home from the hospital or clinic. What happens during the procedure? You will be given one or more of the following: ?A medicine to help you relax (sedative). ?A medicine to numb the area (local anesthetic). The area around the opening of your urethra will be cleaned. The cystoscope will be passed through your urethra into your bladder. Germ-free (sterile) fluid will flow through the cystoscope to fill your bladder. The fluid will stretch your bladder so that your health care provider can clearly examine your bladder gordillo. Your doctor will look at the urethra and bladder. Your doctor may take a biopsy or remove stones. The cystoscope will be removed, and your bladder will be emptied. The procedure may vary among health care providers and hospitals. What can I expect after the procedure? After the procedure, it is common to have: Some soreness or pain in your abdomen and urethra. Urinary symptoms. These include: ?Mild pain or burning when you urinate. Pain should stop within a few minutes after you urinate. This may last for up to 1 week. ?A small amount of blood in your urine for several days. ?Feeling like you need to urinate but producing only a small amount of urine. Follow these instructions at home: Medicines Take svoh-dth-fvoxept and prescription medicines only as told by your health care provider. If you were prescribed an antibiotic medicine, take it as told by your health care provider. Do notstop taking the antibiotic even if you start to feel better. General instructions Return to your normal activities as told by your health care provider. Ask your health care provider what activities are safe for you. If you were given a sedative during the procedure, it can affect you for several hours. Do not drive or operate machinery until your health care provider says that it is safe. Watch for any blood in your urine. If the amount of blood in your urine increases, call your healthcare provider. Follow instructions from your health care provider about eating or drinking restrictions. If a tissue sample was removed for testing (biopsy) during your procedure, it is up to you to get your test results. Ask your health care provider, or the department that is doing the test, when yourresults will be ready. Drink enough fluid to keep your urine pale yellow. Keep all follow-up visits. This is important. Contact a health care provider if: You have pain that gets worse or does not get better with medicine, especially pain when you urinate. You have trouble urinating. You have more blood in your urine. Get help right away if: You have blood clots in your urine. You have abdominal pain. You have a fever or chills. You are unable to urinate. Summary Cystoscopy is a procedure that is used to help diagnose and sometimes treat conditions that affect the lower urinary tract. Cystoscopy is done using a thin, tube-shaped instrument with a light and camera at the end. After the procedure, it is common to have some soreness or pain in your abdomen and urethra. Watch for any blood in your urine. If the amount of blood in your urine increases, call your healthcare provider. If you were prescribed an antibiotic medicine, take it as told by your health care provider. Do notstop taking the antibiotic even if you start to feel better. This information is not intended to replace advice given to you by your health care provider. Make sure you discuss any questions you have with your health care provider. Document Revised: 04/04/2022 Document Reviewed: 03/03/2021 [employer] Patient Education 2022 [employer]. Follow Up Care 05/17/2023 14:32:14 With:YUE GILL, Garcia Swift, URL Address: [facility] [address], [place] [address]- When: Unknown Comments:Sched Cysto/UD [facility] 10-16-2023 NoteUrology Cystoscopy Cystoscopy is a procedure that is used to help diagnose and sometimes treat conditions that affect the lower urinary tract. The lower urinary tract includes the bladder and the urethra. The urethra is the tube that drains urine from the bladder. Cystoscopy is done using a thin, tube-shaped instrument with a light and camera at the end (cystoscope). The cystoscope may be hard or flexible, depending on the goal of the procedure. The cystoscope is inserted through the urethra, into the bladder. Cystoscopy may be recommended if you have: ? Urinary tract infections that keep coming back. ? Blood in the urine (hematuria). ? An inability to control when you urinate (urinary incontinence) or an overactive bladder. ? Unusual cells found in a urine sample. ? A blockage in the urethra, such as a urinary stone. ? Painful urination. ? An abnormality in the bladder found during an intravenous pyelogram (IVP) or CT scan. Cystoscopy may also be done to remove a sample of tissue to be examined under a microscope (biopsy). Tell a health care provider about: ? Any allergies you have. ? All medicines you are taking, including vitamins, herbs, eye drops, creams, and cwqh-qju-atmcejl medicines. ? Any problems you or family members have had with anesthetic medicines. ? Any blood disorders you have. ? Any surgeries you have had. ? Any medical conditions you have. ? Whether you are or may be . What are the risks? Generally, this is a safe procedure. However, problems may occur, including: ? Infection. ? Bleeding. ? Allergic reactions to medicines. ? Damage to other structures or organs. What happens before the procedure? Medicines Ask your health care provider about: ? Changing or stopping your regular medicines. This is especially important if you are taking diabetes medicines or blood thinners. ? Taking medicines such as aspirin and ibuprofen. These medicines can thin your blood. Do not take these medicines unless your health care provider tells you to take them. ? Taking okrv-wck-fmkavub medicines, vitamins, herbs, and supplements. Tests You may have an exam or testing, such as: ? X-rays of the bladder, urethra, or kidneys. ? CT scan of the abdomen or pelvis. ? Urine tests to check for signs of infection. General instructions ? Follow instructions from your health care provider about eating or drinking restrictions. ? Ask your health care provider what steps will be taken to help prevent infection. These steps mayinclude: ? Washing skin with a germ-killing soap. ? Taking antibiotic medicine. ? Plan to have a responsible adult take you home from the hospital or clinic. What happens during the procedure? ? You will be given one or more of the following: ? A medicine to help you relax (sedative). ? A medicine to numb the area (local anesthetic). ? The area around the opening of your urethra will be cleaned. ? The cystoscope will be passed through your urethra into your bladder. ? Germ-free (sterile) fluid will flow through the cystoscope to fill your bladder. The fluid will stretch your bladder so that your health care provider can clearly examine your bladder gordillo. ? Your doctor will look at the urethra and bladder. Your doctor may take a biopsy or remove stones. ? The cystoscope will be removed, and your bladder will be emptied. The procedure may vary among health care providers and hospitals. What can I expect after the procedure? After the procedure, it is common to have: ? Some soreness or pain in your abdomen and urethra. ? Urinary symptoms. These include: ? Mild pain or burning when you urinate. Pain should stop within a few minutes after you urinate. This may last for up to 1 week. ? A small amount of blood in your urine for several days. ? Feeling like you need to urinate but producing only a small amount of urine. Follow these instructions at home: Medicines ? Take blfu-tbs-eekbyvx and prescription medicines only as told by your health care provider. ? If you were prescribed an antibiotic medicine, take it as told by your health care provider. Do not stop taking the antibiotic even if you start to feel better. General instructions ? Return to your normal activities as told by your health care provider. Ask your health care provider what activities are safe for you. ? If you were given a sedative during the procedure, it can affect you for several hours. Do not drive or operate machinery until your health care provider says that it is safe. ? Watch for any blood in your urine. If the amount of blood in your urine increases, call your health care provider. ? Follow instructions from your health care provider about eating or drinking restrictions. ? If a tissue sample was removed for testing (biopsy) during your procedure, it is up to you to getyour test results. Ask your health care provider, or the department th (more content not included)...[facility] 05-17-2023 Evaluation note* Encounter Date Diagnosis Assessment Notes Treatment Notes Treatment Clinical Notes May, Anxiety (ICD-10 - F41.9) [facility] Other 10-05-2023 Evaluation note* Encounter Date Diagnosis Assessment Notes Treatment Notes Treatment Clinical Notes May, Gross hematuria (ICD-10 - R31.0) May, Other acute pulmonary embolism, unspecified whether acute cor pulmonale present (ICD-10 - I26.99) [facility] Other 10-02-2023 Evaluation note* Encounter Date Diagnosis Assessment Notes Treatment Notes Treatment Clinical Notes May, Other closed displaced fracture of proximal end of right humerus, sequela (ICD-10 - S42.291S) [facility] Other 09-27-2023 Hospital Discharge instructions Follow Up Care 05/01/2023 09:02:43 With:YUE GILL, Garcia Swift, URL Address: [facility] [address], [place] [phone] When: Unknown [facility] 09-26-2023 Evaluation note* Encounter Date Diagnosis Assessment Notes Treatment Notes Treatment Clinical Notes Apr, Neck pain on left side (ICD-10 - M54.2) Patient has some mil d tenderness to the left side of neck due to having everything on that side in her room due to the positioning of her recliner. Sleeps in the recliner often and has poor neck posture which is causing her neck pain. She will move furniture around so that she is not having to turn her neck to the left so often. ROM exercises reviewed with her today. She will start using a neck pillow to help with this as well. She will notify office should this not improve or worsen. Apr, Gross hematuria (ICD-10 - R31.0) Gross hematuria has resolved; however, I discussed the importance of following up with urology as I have previously recommended. The referral has been previously sent. Our office called urology and did make patient appointment today before they left, but due to no showing previously, they will not see her for a few months. Patient and her is notified of this today. Specialty notes reviewed as received. Apr, Memory deficit (ICD-10 - R41.3) Having some mild trouble with short term memory issues since getting home from hospital stay and subsequent SNF stay. No warning s/s present today. She will work on some memory exercises at home with her family and will notify office should this not improve. Patient offered referral to Dr. Harrell for neuropsychology referral, but patient and family declined at this time. Warning s/s reviewed with patient today. Patient to go immediately to the ER should pt experience any of these. Patient verbalizes understanding and agrees to treatment plan. Apr, Fever, unspecified fever cause (ICD-10 - R50.9) Patient has a low grade fever in the office today, but no symptoms of being sick. Denies UTI symptoms. Will send her for stat lab work and urine to rule out abnormalities. Will await testing. She will go to the ER should symptoms worsen or warning s/s prior to testing coming back. Warning s/s reviewed with patient today. Patient to go immediately to the ER should pt experience any of these. Patient verbalizes understanding and agrees to treatment plan. Follow up in 1 week for a recheck. Apr, Other A significan t amount of time was spent with this patient > 60 minutes including time spent with patient, prepping for patient and treatment plan after patient left the office. [facility] Other 09-08-2023 Evaluation note* Encounter Date Diagnosis Assessment Notes Treatment Notes Treatment Clinical Notes Apr, Gross hematuria (ICD-10 - R31.0) Jose is a 77 year old female who presents today for complaints of blood in urine. She started with blood in urine on 04/10/23. She was discharged home from [facility] in [place] 04/11/23. Blood in urine was not as bad as it is now. She was dx with UTI and is taking Cefdinir. She is on Eliquis 5 mg BID for PE. Today her pulse is in the 114s, BP 100/60. She is down over 20 pounds since being in [facility]. She was admitted to [facility] on 02/11/23. The reason for her being there was due to falling in [place] while on vacation and fractured right humerus, right sacral and right pubic rami fractures on 02/04/23. She was hospitalized in [place] on 02/04/23. Had some dysfunction with her kidneys while in the hospital at [place]. She stayed in the [facility] from 02/04/23-02/11/23 and transferred to [facility] on 02/11/2023. While she was in the [facility], she developed a PE to her lungs and she was transferred to [facility] and was put on Eliquis. Has been on the Eliquis for about 1-1.5 months. Today, she has a mild cough coming back, no trouble breathing, low energy. No burning with urination, no increased frequency, maybe a small amount more, some mild suprapubic pain, no CVA tenderness, no fevers, no dizziness. Some mild confusion. Some diarrhea but unsure if has blood in stool. Patient presents today with complaints of gross hematuria x 2 days. Dx with UTI and put on Cefdinir however, hematuria worsening. She has gross hematuria in the office today and unable to run on urine dip. BP is low and P is high. Has some confusion present. She is also on Eliquis 5 mg BID and I am very concerned with internal bleeding. Patient is referred to the [facility] ER today. Report called to [facility] SQL SERVER DBA DEVELOPERCAITLIN Robles, patient and patient are in agreement and patient states that he will take her right over to [facility] ER. Apr, Other Homero benitezan christine amount of time was spent with this patient > 60 minutes including time spent with patient, prepping for patient and treatment plan after patient left the office. [facility] Other 06-01-2023 Evaluation note* Encounter Date Diagnosis Assessment Notes Treatment Notes Treatment Clinical Notes Jan, Essential (primary) hypertension (ICD-10 - I10) Blood pressure is well controlled without medication. UTD with lab work. We'll continue current treatment plan. Patient is advised to work on healthy diet choices and appropriate servings, weight control, regular exercise as directed, and salt avoidance. Monitor blood pressures at home and call if above target. Jan, Hyperlipidemia, unspecified (ICD-10 - E78.5) UTD with lab work. Currently taking Lipitor 20 mg every other day. We'll continue current treatment plan. Take medication as prescribed, keep follow up appointments, get any testing that's been ordered done in a timely fashion. Do not smoke. Call if any questions or problems. For Cholesterol: Patient is advised to work on healthy diet choices and appropriate servings, weight control, regular exercise as directed, and reduce fat intake. Jan, Prediabetes (ICD-10 - R73.03) In office hgba1c shows good control of prediabetes without medication. UTD with lab work. Will continue this. Patient is advised to work on healthy diet choices and appropriate servings, weight control, regular exercise as directed, reduced fat intake, and salt avoidance. Patient voiced understanding of this and agrees to this plan. Jan, Chronic obstructive pulmonary disease, unspecified (ICD-10 - J44.9) Stable at this time with Trelegy as ordered by pulmonary. She is to continue to follow with pulmonary. She will also continue to follow with oncology for lung nodules for repeat CT chest in January-February 2023. Specialty notes reviewed as received. Jan, Vitamin D deficiency (ICD-10 - E55.9) UTD with lab work. Currently taking Vitamin D 2000 units daily. We'll continue current treatment plan. Jan, Peripheral neuropathy (ICD-10 - G62.9) Stable at this time. She is not interested in any further workup at this time. We'll continue current treatment plan. [facility] Other 04-03-2023 Evaluation note* Encounter Date Diagnosis Assessment Notes Treatment Notes Treatment Clinical Notes Nov, Chronic obstructive pulmonary disease, unspecified (ICD-10 - J44.9) [facility] Other 02-03-2023 NoteProcedure/Quality: A two-dimensional transthoracic echocardiogram with colorNorth [facility] Other 01-30-2023 Evaluation note* Encounter Date Diagnosis Assessment Notes Treatment Notes Treatment Clinical Notes Aug, Medicare annual wellness visit, subsequent (ICD-10 - Z00.00) Personalized health advice was given to the beneficiary including a written plan for screenings discussed and provided. Advanced care planning reviewed and/or information given as requested. The above visit was performed by Laly WEINER, under direct supervision of Lety Flynn,SARA,DIRECTOR OF RESIDENTIAL SERVICES,AUTO BODY TECHNICIAN. Document reviewed and amended by provider signed below. Aug, Essential (primary) hypertension (ICD-10 - I10) Blood pressure is well controlled without medication. UTD with lab work. We'll continue current treatment plan. Patient is advised to work on healthy diet choices and appropriate servings, weight control, regular exercise as directed, and salt avoidance. Monitor blood pressures at home and call if above target. Aug, Hyperlipidemia, unspecified (ICD-10 - E78.5) UTD with lab work. Currently taking Lipitor 20 mg every other day. We'll continue current treatment plan. Take medication as prescribed, keep follow up appointments, get any testing that's been ordered done in a timely fashion. Do not smoke. Call if any questions or problems. For Cholesterol: Patient is advised to work on healthy diet choices and appropriate servings, weight control, regular exercise as directed, and reduce fat intake. Aug, Prediabetes (ICD-10 - R73.03) In office hgba1c shows good control of prediabetes without medication. UTD with lab work. Will continue this. Patient is advised to work on healthy diet choices and appropriate servings, weight control, regular exercise as directed, reduced fat intake, and salt avoidance. Patient voiced understanding of this and agrees to this plan. Aug, Chronic obstructive pulmonary disease, unspecified (ICD-10 - J44.9) Stable at this time with Trelegy as ordered by pulmonary. She is to continue to follow with pulmonary. She will also continue to follow with oncology for lung nodules for repeat CT chest in January-February 2023. Specialty notes reviewed as received. Aug, Vitamin D deficiency (ICD-10 - E55.9) UTD with lab work. Currently taking Vitamin D 2000 units daily. We'll continue current treatment plan. Aug, Peripheral neuropathy (ICD-10 - G62.9) Stable at this time. She is not interested in any further workup at this time. We'll continue current treatment plan. Aug, Encounter for screening mammogram for malignant neoplasm of breast (ICD-10 - Z12.31) Patient is due for her routine yearly screening mammogram. Screening mammogram ordered today. Aug, Shortness of breath (ICD-10 - R06.02) She has persistent SOB with activity. She has been worked up pulmonary farrar and does have COPD but this is worse than her SOB in the past. Was found to have lung nodules on her CT scan but these are stable as well. Her heart rhythm in the office is mildly irregular. EKG in the office shows: SR ,PACs, probable normal variant. Will work her up cardiac farrar to rule out cardiac cause of her SOB. Echo, stress test and formal EKG ordered. Further treatment pending results of this testing. Warning s/s reviewed with patient today. Patient to go immediately to the ER should pt experience any of these. Patient verbalizes understanding and agrees to treatment plan. Aug, Irregular heart rhythm (ICD-10 - I49.9) See above treatment plan. [facility] Other 01-20-2023 Progress note Author Pete Erazo [facility] August 24, 2022 11:38am Note Date/Time August 24, 2022 1 1:31am [facility] at [address] [address] Hem/Onc Follow Up Note - OP Signed Patient: Jose Kim MR#: [id number] : 1945 Acct:[id number] Age/Sex: 77 / F Type: REG RCR Copies to: Lety Flynn, DNP~ Date of Service: 08/24/2022 Time of Service: 11:30 - Assessment & Plan (1) Pulmonary nodule Plan: She has multiple small subcentimeter pulmonary nodules. They are not FDG avid on PET/CT, but this may be because they are too small. They are not amenable to biopsy due to the size. They do not have particularly concerning neoplastic features with the exception of a right upper lobe spiculated appearing lesion. She has follow-up soon with pulmonology. repeat scan in aug [address] chest noncontrast in february 2023 planned. 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 Immunofixation without monoclonality [place] lambda ratio is preserved. Elevated quantitative IgG. 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 She is extremely low likelihood of hematologic malignancy. No evidence of renal failure, anemia, hypercalcemia, bony lesions on CT imaging. I offered her f/u as needed, she would like to see me in mid 2022 after scans, then likely prn only. Follow Up Instructions: ct chest noncontrast february 2023 f/u after no labs. - History of Present Illness Chief Complaint: Patient is here today for a 3 month follow up visit and go overlbas and CT scans HPI: 77 year old female primary patient of Kyara Flynn NP. She lives in [facility] but gets all of her care through [facility]. Referred for elevated paraprotein labs, and jacques nodules. Past medical history of hyperlipidemia, hypertension. osteoporosis, psoriasis, copd, pneumonia. OUtpatient meds include vitamin D3, Stoilto Respimat, albuterold, atorvastatin. She was a smoker, quit at age 57, about a pack a day at most prior to this. She follows with Dr. Gomes for COPD. She having increasing short of breath and cough for the last 6 months. This was noticeable enough hat she called her PCP and is attempting to see Dr. Gomes. She had elevated total protein and Kyara Flynn sent SPEP sflc, no monclonality. elevated quanti IgG. K/L ratio of 2.55. on may [address] chest performed noted Calcified and noncalcified nodules arenoted in the area of nodularity accompanied by atelectasis or scarring at the right lung base. This measures up to 11 mm in greatest dimension. There is ongoing clinical concern for malignancy, follow-up with PET/CT or short-term interval follow-up with chest CT could BE recommended. No concerns for mediastinal or hilar adenopathy. Pet/ct on 05/17/22 notes No mass or adenopathy in the neck identified. No bonylesion seen in the neck. No abnormal neck hypermetabolic uptake identified. Increased uptake identified in the anterior portion of the oral cavity. This may be physiologic. There are multiple lung nodules measuring up to 11 mm redemonstrated. No associated hypermetabolism identified. Mildly hypermetabolic mediastinal and bilateral hilar lymph nodes identified. These may be reactive. No abnormal chest wall hypermetabolic uptake identified. Normal accumulation of liver identified. Normal physiologic uptake of the bowelnoted. No abnormal hypermetabolic uptake seen. No abdominal mass or adenopathyidentified. Uptake in the collecting system and ureter and bladder are likely physiologic. No soft tissue wall mass or fluid collection identified. No bony lesion seen. No abnormal hypermetabolic bone lesion seen. LEFT hip fixation changes. No abnormal hypermetabolic soft tissue uptake seen. IMPRESSION: Redemonstration of multiple bilateral lung nodules measuring up to11 mm. No associated hypermetabolism of lung nodules. Mediastinal and bilateral hilar lymph nodes. These may be reactive. May consider short-term follow-up assessment. 08/24/[address] c/a/p. ct a/p with diverticulosis, no itis. ct chest with stable similar nodularity, slight more atelectasis. she follows with Dr. Gomes who has changed her inhaled medications. - Physical Exam ECOG PS: 0 General : patient is alert and oriented to person place and time, no acute distress. Neck: no JVD or thyromegaly. Lymph: no cervical, supraclavicular, axillary adenopathy. Heart: regular rate and rhythm no murmurs rubs or gallops. Abdomen: soft nontender nondistended, no hepatosplenomegaly. Lungs: cta bl, no wheezes, rales, rhonchi. Extremities: no clubbing cyanosis. - Time with Patient Coordination of Care & Counseling Time: Greater than 50% of time spent with patient was for coordination of care (as documented) and urqa-wv-lmpb counseling of patient and/or family. [facility] - Medical History Medical History: Medical History (Last Reviewed 06/13/22 @ 14:14 by Evelin Brooks RN) COPD (chronic obstructive pulmonary disease) High cholesterol Hypertension Psoriasis - Surgical History Surgical History: Surgical History (Last Reviewed 06/13/22 @ 14:14 by Evelin Brooks RN) History of surgery left leg aileen and brace d/t fell down stair 10 years ago Hx of appendectomy age 16 - Family History Family History: Family History (Last Reviewed 06/13/22 @ 14:14 by Evelin Brooks RN) Father Diabetes Alzheimers disease Heart disease Stroke Hypertension Mother Stroke Breast cancer Hypertension - Social History Smoking Status: Former smoker Substance Use Type: None Additional Data - Additional Objective Data Height/Weight: Height 5 ft 5 in Weight 97.2 kg Vital Signs: 08/24/22 11:16 Temperature 97.8 F Pulse Rate [Right Brachial] 86 Respiratory Rate 16 Blood Pressure [Right Arm] 137/68 02 Sat by Pulse Oximetry 95 Oxygen Delivery Method Room Air - Lab Results Diagram of Most Recent CBC and CMP 08/20/22 09:35 08/20/22 09:35 Labs - Last 7 Days 08/20/22 09:35: Serum Total Protein 8.2, Albumin (Send Out) 3.4, Globulin (PEP) 4.8 H, Albumin/Globulin (PEP) 0.7, Axajq-4-Yjzljnlzi 0.3, Nfoaa-7-Pniufvoso 1.0,Beta Globulins 1.1, Gamma Globulins 2.5 H, M-Hernando Not observed, PEP Note , IgG 2783 H, IgA 259, IgM 205, Serum Immunofixation , Free [place] LC, Quant 89.6 H, Free Lambda LC, Quant 43.1 H, Free [place]/Lambda Ratio 2.08 H 08/20/22 09:35: PHA Creatinine Clear 45.10, Sodium 138, Potassium 4.2, Chloride 106, Carbon Dioxide 26.2, Anion Gap 10.0, BUN 13, Creatinine 0.94, Est GFR ( Amer) > 60, Est GFR (Non-Af Amer) 58, Glucose 105 H, Calcium 9.5, TotalBilirubin 0.6, AST 23, ALT 18, Alkaline Phosphatase 83, Total Protein 8.6 H, Albumin 3.5, Globulin 5.1, Albumin/Globulin Ratio 0.7 08/20/22 09:35: Corrected WBC 8.8, Uncorrected WBC Count 8.8, RBC 4.50, Hgb 13.1, Hct 39.8, MCV 88.5, MCH 29.2, MCHC 33.0, RDW 14.4, Plt Count 277, MPV 7.3,Neut % (Auto) 78.1, Lymph % (Auto) 12.0, [place] % (Auto) 9.1, Eos % (Auto) 0.3, Baso % (Auto) 0.5, Nucleat RBC Rel Count 0.0, Neut # (Auto) 6.9, Lymph # (Auto) 1.1, [place] # (Auto) 0.8, Eos # (Auto) 0.0, Baso # (Auto) 0.0, ESR 58 H - Home Medications and Allergies Allergies/Adverse Reactions: Allergies No Known Allergies Allergy (Verified 08/24/22 11:15) Home Medications: Home Medications albuterol sulfate 90 mcg/actuation aerosol inhaler (ProAir HFA) 1 - 2 puff inhalation Q4-6H PRN Shortness Of Breath 06/02/18 [History Confirmed 08/24/22] atorvastatin 20 mg tablet 20 mg PO DIRECTED 06/02/18 [History Confirmed 08/24/22] cholecalciferol (vitamin D3) 50 mcg (2,000 unit) capsule (Vitamin D3) 2,000 units PO DAILY 06/02/18 [History Confirmed 08/24/22] ibuprofen 200 mg tablet 200 mg PO DIRECTED 05/17/22 [History Confirmed 08/24/22] gentamicin 0.1 % topical ointment 1 applic topical DAILY 4 weeks #30 grams 06/13/22 [Rx Confirmed 06/27/22] fluticasone fur. 100 mcg-umeclid 62.5 mcg-vilant 25 mcg inhalat.powder (Trelegy Ellipta) 1 inh inhalation Q24H 08/24/22 [History Confirmed 08/24/22] Dictated By: Pete Erazo II, DO DD/ 1130 Signed By: <Electronically signed by Pete Erazo II, DO> 08/24/22 [address] [facility] Work Phone: [phone]) 206-950912-12-2022 Evaluation note* Encounter Date Diagnosis Assessment Notes Treatment Notes Treatment Clinical Notes Jul, Chronic obstructive pulmonary disease, unspecified (ICD-10 - J44.9) [employer] [facility] Other 11-23-2022 Progress note Author Emma Samson [facility] June 27, 2022 2:33pm Note Date/Time June 27, 2022 2:33pm [facility] [address] [place] [address] Wound Center Provider Note Signed Patient: Jose Kim MR#: [id number] : 1945 Acct:[id number] Age/Sex: 77 / F Copies to: Lety Flynn, SARA Samson, DIRECTOR OF RESIDENTIAL SERVICES~ HPI Date of Visit Date of Visit: Date of Service: 06/27/2022 Time of Service: 14:32 Narrative HPI: 06/13/22 Jose is a 77 year old female presenting to [facility] wound care program for an initial visit for eval and treatment of a right perineal area that appears be from an abscess- she says it has been there for about 2 weeks and it was tender to touch when she was showering and then she saw drainage on her towel. We will use topical gentamicin to the area along with theraworx protect to cleanse the area prior to the gent. She can cover the gent with a bandaid or similar- this area may be tricky to adhere a bandage to because of the location.Jose can return in about 1 week. She denied the need for HH services and said that she will do the dressings. Healing will be affected by her diet and the dressings being done as ordered. I do not think that we need a surgical consult but we can eval for this at the next visit. 06/20/22 area has improved slightly, changed orders to collagen silver, 1 week appt, denied HH nurses again and says that she can do the dressings 06/27/22 area improved again so orders will be kept the same, 2 week appt, she will continue to do dressings Subjective Pain Right Groin: Pain Intensity: 0 Pain Management Techniques Other/Comment: uncomfortable Wound/Ulcer History When did wound start?: May 2022 Mode of Arrival/ Fiberglass Dowel Drawing Operator: Personal vehicle Assistive Device Used Today: Cane Lives with:: Spouse Appetite Description: Within Normal Limits Who helps w/ dressing change?: Self Smoking Status: Former smoker PMFSH Vaccinated for COVID-19?: Yes Medical History (Updated 06/27/22 @ 14:33 by Emma Samson APRN) COPD (chronic obstructive pulmonary disease) High cholesterol Hypertension Psoriasis Surgical History History of surgery left leg aileen and brace d/t fell down stair 10 years ago Hx of appendectomy age 16 Family History Father Diabetes Alzheimers disease Heart disease Stroke Hypertension Mother Stroke Breast cancer Hypertension Social History Smoking Status: Former smoker Substance Use Type: None Grafts History of Graft History of Graft?: No Exam Physical Exam Vital Signs: Temp Pulse Resp BP O2 Del Method 98.4 F 91 H 18 153/77 H Room Air 06/27/22 14:25 06/27/22 14:25 06/27/22 14:25 06/27/22 14:25 06/27/22 14:25 Const General: cooperative, healthy appearing, comfortable and no acute distress Nutritional Appearance: average body habitus Orientation: alert, awake and oriented x3 Lower/Upper Extremity Exam Vascular Exam-Pulses Right Brachial: Pulse Assessment Method: NIBP Objective Meds/Allergies Home Medications albuterol sulfate 90 mcg/actuation aerosol inhaler (ProAir HFA) 1 - 2 puff inhalation Q4-6H PRN Shortness Of Breath 06/02/18 [History Confirmed 06/27/22] atorvastatin 20 mg tablet 20 mg PO DIRECTED 06/02/18 [History Confirmed 06/27/22] cholecalciferol (vitamin D3) 50 mcg (2,000 unit) capsule (Vitamin D3) 2,000 units PO DAILY 06/02/18 [History Confirmed 06/27/22] tiotropium 2.5 mcg-olodaterol 2.5 mcg/actuation mist for inhalation (Stiolto Respimat) 2 puff inhalation QAM 06/02/18 [History Confirmed 06/27/22] ibuprofen 200 mg tablet 200 mg PO DIRECTED 05/17/22 [History Confirmed 06/27/22] gentamicin 0.1 % topical ointment 1 applic topical DAILY 4 weeks #30 grams 06/13/22 [Rx Confirmed 06/27/22] Allergies No Known Allergies Allergy (Verified 06/13/22 14:14) Wound/Ulcer Right Perineal: Type: Ulcer 2nd Infection Thickness: Full Bed Appearance: Beefy Red, [place] and Yellow Percent of Wound Bed Granulated/Red: 90 Percent of Devitalized: 10 Length (cm): 0.7 Width (cm): 1.2 Depth (cm): 0.2 CM Sq: 0.840 Surrounding Tissue Appearance: Hyperpigmented Surrounding Tissue Temp: Warm Drainage Amount: Moderate Drainage Description: Serosanguineous Results Height: 5 ft 5 in Weight: 61.689 kg Body Mass Index: 22.6 Assessment/Plan Assessment/Plan (1) Perineal abscess: Assessment/Problem Details: right Code(s): L02.215 - Cutaneous abscess of perineum Status: Chronic (2) Wound pain: Assessment/Problem Details: right perineal abscess Status: Chronic Time spent with patient Time Spent With Patient (min): 10 Dictated By: Emma Samson APRN DD/ 31 Signed By: <Electronically signed by TRENTON Samson> 06/27/221432 [facility] Work Phone: 1(615) 290-787011-16-2022 Progress note Author Emma Samson [facility] June 20, 2022 3:08pm Note Date/Time June 20, 2022 3:08pm [facility] [address] [place] [address] Wound Center Provider Note Signed Patient: Jose Kim MR#: [id number] : 1945 Acct:[id number] Age/Sex: 77 / F Copies to: SARA Tang APRN~ HPI Date of Visit Date of Visit: Date of Service: 06/20/2022 Time of Service: 15:05 Narrative HPI: 06/13/22 Jose is a 77 year old female presenting to [facility] wound care program for an initial visit for eval and treatment of a right perineal area that appears be from an abscess- she says it has been there for about 2 weeks and it was tender to touch when she was showering and then she saw drainage on her towel. We will use topical gentamicin to the area along with theraworx protect to cleanse the area prior to the gent. She can cover the gent with a bandaid or similar- this area may be tricky to adhere a bandage to because of the location.Jose can return in about 1 week. She denied the need for HH services and said that she will do the dressings. Healing will be affected by her diet and the dressings being done as ordered. I do not think that we need a surgical consult but we can eval for this at the next visit. 06/20/22 area has improved slightly, changed orders to collagen silver, 1 week appt, denied HH nurses again and says that she can do the dressings Subjective Pain Right Groin: Pain Intensity: 0 Pain Management Techniques Other/Comment: a little pain when washing up Wound/Ulcer History When did wound start?: May 2022 Mode of Arrival/ Fiberglass Dowel Drawing Operator: Personal vehicle Assistive Device Used Today: Cane Lives with:: Spouse Appetite Description: Within Normal Limits Who helps w/ dressing change?: Self Smoking Status: Former smoker [facility] Vaccinated for COVID-19?: Yes Medical History (Updated 06/13/22 @ 14:22 by Emma Samson APRN) COPD (chronic obstructive pulmonary disease) High cholesterol Hypertension Psoriasis Surgical History History of surgery left leg aileen and brace d/t fell down stair 10 years ago Hx of appendectomy age 16 Family History Father Diabetes Alzheimers disease Heart disease Stroke Hypertension Mother Stroke Breast cancer Hypertension Social History Smoking Status: Former smoker Substance Use Type: None Grafts History of Graft History of Graft?: No Exam Physical Exam Vital Signs: Temp Pulse Resp BP O2 Del Method 98.2 F 111 H 18 156/83 H Room Air 06/20/22 14:56 06/20/22 14:56 06/20/22 14:56 06/20/22 14:56 06/20/22 14:56 Const General: cooperative, healthy appearing, comfortable and no acute distress Nutritional Appearance: average body habitus Orientation: alert, awake and oriented x3 Lower/Upper Extremity Exam Vascular Exam-Pulses Right Brachial: Pulse Assessment Method: NIBP Objective Meds/Allergies Home Medications albuterol sulfate 90 mcg/actuation aerosol inhaler (ProAir HFA) 1 - 2 puff inhalation Q4-6H PRN Shortness Of Breath 06/02/18 [History Confirmed 06/20/22] atorvastatin 20 mg tablet 20 mg PO DIRECTED 06/02/18 [History Confirmed 06/20/22] cholecalciferol (vitamin D3) 50 mcg (2,000 unit) capsule (Vitamin D3) 2,000 units PO DAILY 06/02/18 [History Confirmed 06/20/22] tiotropium 2.5 mcg-olodaterol 2.5 mcg/actuation mist for inhalation (Stiolto Respimat) 2 puff inhalation QAM 06/02/18 [History Confirmed 06/20/22] ibuprofen 200 mg tablet 200 mg PO DIRECTED 05/17/22 [History Confirmed 06/20/22] gentamicin 0.1 % topical ointment 1 applic topical DAILY 4 weeks #30 grams 06/13/22 [Rx Confirmed 06/20/22] Allergies No Known Allergies Allergy (Verified 06/13/22 14:14) Wound/Ulcer Right Perineal: Type: Ulcer 2nd Infection Thickness: Full Bed Appearance: Beefy Red, [place] and Yellow Percent of Wound Bed Granulated/Red: 90 Percent of Devitalized: 10 Length (cm): 0.8 Width (cm): 1.5 Depth (cm): 0.3 CM Sq: 1.200 Surrounding Tissue Appearance: Hyperpigmented Surrounding Tissue Temp: Warm Drainage Amount: Moderate Drainage Description: Serosanguineous Results Height: 5 ft 5 in Weight: 61.689 kg Body Mass Index: 22.6 Assessment/Plan Assessment/Plan (1) Perineal abscess: Assessment/Problem Details: right Code(s): L02.215 - Cutaneous abscess of perineum Status: Acute (2) Wound pain: Assessment/Problem Details: right perineal abscess Status: Acute Time spent with patient Time Spent With Patient (min): 15 Dictated By: Emma Samson APRN DD/ 1508 Signed By: <Electronically signed by TRENTON Samson> 06/20/22 9259 [facility] Work Phone: [phone] 768-751211-14-2022 Evaluation note* Encounter Date Diagnosis Assessment Notes Treatment Notes Treatment Clinical Notes Jun, Chronic obstructive pulmonary disease, unspecified (ICD-10 - J44.9) [employer] Other 11-09-2022 Progress note Author Emma Samson [facility] June 13, 2022 2:30pm Note Date/Time June 13, 2022 2 :25pm [facility] [address] [place] [address] Wound Center Provider Note Signed Patient: Jose Kim MR#: [id number] : 1945 Acct:[id number] Age/Sex: 77 / F Copies to: SARA Tang APRN~ HPI Date of Visit Date of Visit: Date of Service: 06/13/2022 Time of Service: 14:20 Narrative HPI: 06/13/22 Jose is a 77 year old female presenting to [facility] wound care program for an initial visit for eval and treatment of a right perineal area that appears be from an abscess- she says it has been there for about 2 weeks and it was tender to touch when she was showering and then she saw drainage on her towel. We will use topical gentamicin to the area along with theraworx protect to cleanse the area prior to the gent. She can cover the gent with a bandaid or similar- this area may be tricky to adhere a bandage to because of the location.Jose can return in about 1 week. She denied the need for HH services and said that she will do the dressings. Healing will be affected by her diet and the dressings being done as ordered. I do not think that we need a surgical consult but we can eval for this at the next visit. Subjective Pain Right Groin: Pain Intensity: 4 Wound/Ulcer History When did wound start?: May 2022 Mode of Arrival/ Fiberglass Dowel Drawing Operator: Personal vehicle Assistive Device Used Today: Cane Lives with:: Spouse Appetite Description: Within Normal Limits Who helps w/ dressing change?: Self Smoking Status: Former smoker PMFSH Vaccinated for COVID-19?: Yes Medical History (Updated 06/13/22 @ 14:22 by Emma Samson APRN) COPD (chronic obstructive pulmonary disease) High cholesterol Hypertension Psoriasis Surgical History History of surgery left leg aileen and brace d/t fell down stair 10 years ago Hx of appendectomy age 16 Family History Father Diabetes Alzheimers disease Heart disease Stroke Hypertension Mother Stroke Breast cancer Hypertension Social History Smoking Status: Former smoker Substance Use Type: None Grafts History of Graft History of Graft?: No Exam Physical Exam Vital Signs: Temp Pulse Resp BP O2 Del Method 97.9 F 109 H 18 155/84 H Room Air 06/13/22 14:10 06/13/22 14:10 06/13/22 14:10 06/13/22 14:10 06/13/22 14:10 Const General: cooperative, healthy appearing, comfortable and no acute distress Nutritional Appearance: average body habitus Orientation: alert, awake and oriented x3 Lower/Upper Extremity Exam Vascular Exam-Pulses Right Brachial: Pulse Assessment Method: NIBP Objective Meds/Allergies Home Medications albuterol sulfate 90 mcg/actuation aerosol inhaler (ProAir HFA) 1 - 2 puff inhalation Q4-6H PRN Shortness Of Breath 06/02/18 [History Confirmed 06/13/22] atorvastatin 20 mg tablet 20 mg PO DIRECTED 06/02/18 [History Confirmed 06/13/22] cholecalciferol (vitamin D3) 50 mcg (2,000 unit) capsule (Vitamin D3) 2,000 units PO DAILY 06/02/18 [History Confirmed 06/13/22] tiotropium 2.5 mcg-olodaterol 2.5 mcg/actuation mist for inhalation (Stiolto Respimat) 2 puff inhalation QAM 06/02/18 [History Confirmed 06/13/22] ibuprofen 200 mg tablet 200 mg PO DIRECTED 05/17/22 [History Confirmed 06/13/22] gentamicin 0.1 % topical ointment 1 applic topical DAILY 4 weeks #30 grams 06/13/22 [Rx] Allergies No Known Allergies Allergy (Verified 06/13/22 14:14) Wound/Ulcer Right Perineal: Type: Ulcer 2nd Infection Thickness: Full Bed Appearance: Beefy Red, [place] and Yellow Percent of Wound Bed Granulated/Red: 90 Percent of Devitalized: 10 Length (cm): 2.0 Width (cm): 0.8 Depth (cm): 0.5 CM Sq: 1.600 Surrounding Tissue Appearance: Hyperpigmented Surrounding Tissue Temp: Warm Drainage Amount: Moderate Drainage Description: Serosanguineous Results Height: 5 ft 5 in Weight: 61.689 kg Body Mass Index: 22.6 Assessment/Plan Assessment/Plan (1) Perineal abscess: Assessment/Problem Details: right Code(s): L02.215 - Cutaneous abscess of perineum Status: Acute (2) Wound pain: Assessment/Problem Details: right perineal abscess Status: Acute Time spent with patient Time Spent With Patient (min): 15 Dictated By: Emma Samson APRN DD/ 19 Signed By: <Electronically signed by TRENTON Samson> 06/13/221429 [facility] Work Phone: [phone]) 886-398411-08-2022 Evaluation note* Encounter Date Diagnosis Assessment Notes Treatment Notes Treatment Clinical Notes Jun, Wound of right groin, initial encounter (ICD-10 - S31.109A) Does have a vito sized clean wound to right groin with undermining and small amount of tunneling. No s/s of infection. Does need some help with overall healing and to keep from getting infected. Wound care called today and appointment made for tomorrow at [facility] with [facility] wound care. Patient notified and states she will keep this appointment. She will keep dry and clean until seen by wound care tomorrow, follow wound care orders after that. Notify office should she need anything further with this. [employer] Other 10-31-2022 Evaluation note* Encounter Date Diagnosis Assessment Notes Treatment Notes Treatment Clinical Notes May, Chronic obstructive pulmonary disease with acute exacerbation (ICD-10 - J44.1) Take medications as directed. Use nebulizer or inhaler as directed. Take medication with food to prevent stomach upset. . Follow up with primary care provider is recommended if symptoms don''t improve. [employer] Other 10-15-2022 Progress note Author Pete Erazo [facility] May 19, 2022 12:56pm Note Date/Time May 18, 2022 1 1:38[facility] [place] [id number] Hem/Onc Follow Up Note - OP Signed Patient: Jose Kim MR#: [id number] : 1945 Acct:[id number] Age/Sex: 77 / F Type: REG RCR Copies to: Lety Flynn DNP~ Date of Service: 05/18/2022 Time of Service: 11:31 - Assessment & Plan (1) Pulmonary nodule Plan: She has multiple small subcentimeter pulmonary nodules. They are not FDG avid on PET/CT, but this may be because they are too small. They are not amenable to biopsy due to the size. They do not have particularly concerning neoplastic features with the exception of a right upper lobe spiculated appearing lesion. She has follow-up soon with pulmonology. I suggest we repeat her imaging in 3 months and follow-up after. 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 Will check immunofixation with her next labs. [place] lambda ratio is preserved. Elevated quantitative IgG. No evidence of renal failure, anemia, hypercalcemia, bony lesions on CT imaging. Follow Up Instructions: ct chest with contrast in 3 months and f/u after. cbc, cmp, spep, sflc, simmunofixation prior. also ESR, - History of Present Illness Chief Complaint: Patient is here for a referral from Kyara Flynn for multiple lung nodules. She has had a PFT, chest CT, and PET scan. She states that she getshort of breath on exertion and gets fatigued easily. No other concerns voiced at this time. HPI: 77 year old female primary patient of Kyara Flynn NP. She lives in [facility] but gets all of her care through [facility]. Referred for elevated paraprotein labs, and jacques nodules. Past medical history of hyperlipidemia, hypertension. osteoporosis, psoriasis, copd, pneumonia. OUtpatient meds include vitamin D3, Stoilto Respimat, albuterold, atorvastatin. She was a smoker, quit at age 57, about a pack a day at most prior to this. She follows with Dr. Gomes for COPD. She having increasing short of breath and cough for the last 6 months. This was noticeable enought hat she called herP and is attempting to see Dr. Gomes. She had eelvated total protein and Kyara Flynn sent SPEP sflc, no monclonality. elevated quanti IgG. K/L ratio of 2.55. on may [address] chest performed noted Calcified and noncalcified nodules arenoted in the area of nodularity accompanied by atelectasis or scarring at the right lung base. This measures up to 11 mm in greatest dimension. There is ongoing clinical concern for malignancy, follow-up with PET/CT or short-term interval follow-up with chest CT could BE recommended. No concerns for mediastinal or hilar adenopathy. Pet/ct on 05/17/22 notes No mass or adenopathy in the neck identified. No bonylesion seen in the neck. No abnormal neck hypermetabolic uptake identified. Increased uptake identified in the anterior portion of the oral cavity. This may be physiologic. There are multiple lung nodules measuring up to 11 mm redemonstrated. No associated hypermetabolism identified. Mildly hypermetabolic mediastinal and bilateral hilar lymph nodes identified. These may be reactive. No abnormal chest wall hypermetabolic uptake identified. Normal accumulation of liver identified. Normal physiologic uptake of the bowelnoted. No abnormal hypermetabolic uptake seen. No abdominal mass or adenopathyidentified. Uptake in the collecting system and ureter and bladder are likely physiologic. No soft tissue wall mass or fluid collection identified. No bony lesion seen. No abnormal hypermetabolic bone lesion seen. LEFT hip fixation changes. No abnormal hypermetabolic soft tissue uptake seen. IMPRESSION: Redemonstration of multiple bilateral lung nodules measuring up to11 mm. No associated hypermetabolism of lung nodules. Mediastinal and bilateral hilar lymph nodes. These may be reactive. May consider short-term follow-up assessment. - Time with Patient Coordination of Care & Counseling Time: Greater than 50% of time spent with patient was for coordination of care (as documented) and [id number] counseling of patient and/or family. [facility] - Medical History Medical History: Medical History (Last Reviewed 05/18/22 @ 11:09 by Cecilia Aleman) COPD (chronic obstructive pulmonary disease) High cholesterol Hypertension Psoriasis - Surgical History Surgical History: Surgical History (Last Reviewed 05/18/22 @ 11:09 by Cecilia Aleman) History of surgery left leg ialeen and brace d/t fell down stair 10 years ago Hx of appendectomy age 16 - Family History Family History: Family History (Last Reviewed 05/18/22 @ 11:09 by Cecilia Aleman) Father Diabetes Alzheimers disease Heart disease Stroke Hypertension Mother Stroke Breast cancer Hypertension - Social History Smoking Status: Former smoker Substance Use Type: None Additional Data - Additional Objective Data Height/Weight: Height 5 ft 5 in Weight 63.185 kg Vital Signs: 05/18/22 11:21 Temperature 98 F Pulse Rate [Right Brachial] 76 Respiratory Rate 20 Blood Pressure [Right Arm] 139/75 02 Sat by Pulse Oximetry 96 Oxygen Delivery Method Room Air - Home Medications and Allergies Allergies/Adverse Reactions: Allergies No Known Allergies Allergy (Verified 05/18/22 11:09) Home Medications: Home Medications albuterol sulfate 90 mcg/actuation aerosol inhaler (ProAir HFA) 1 - 2 puff inhalation Q4-6H PRN Shortness Of Breath 06/02/18 [History Confirmed 05/18/22] atorvastatin 20 mg tablet 20 mg PO DIRECTED 06/02/18 [History Confirmed 05/18/22] cholecalciferol (vitamin D3) 50 mcg (2,000 unit) capsule (Vitamin D3) 2,000 units PO DAILY 06/02/18 [History Confirmed 05/18/22] tiotropium 2.5 mcg-olodaterol 2.5 mcg/actuation mist for inhalation (Stiolto Respimat) 2 puff inhalation QAM 06/02/18 [History Confirmed 05/18/22] ibuprofen 200 mg tablet 200 mg PO DIRECTED 05/17/22 [History Confirmed 05/18/22] Dictated By: Pete Erazo II, DO DD/ 1131 Signed By: <Electronically signed by Pete Erazo II, DO> 05/19/22 [address] [facility] Work Phone: 1(266) 870-881510-07-2022 Evaluation note* Encounter Date Diagnosis Assessment Notes Treatment Notes Treatment Clinical Notes May, Multiple lung nodule s on CT (ICD-10 - R91.8) May, Shortness of breath (ICD-10 - R06.02) May, Hyperproteinemia (ICD-10 - E88.09) [employer] Other 10-03-2022 Evaluation note* Encounter Date Diagnosis Assessment Notes Treatment Notes Treatment Clinical Notes May, Hyperproteinemia (ICD-10 - E88.09) [employer] Other 09-28-2022 Evaluation note* Encounter Date Diagnosis Assessment Notes Treatment Notes Treatment Clinical Notes Apr, Chronic obstructive pulmonary disease, unspecified (ICD-10 - J44.9) Jose is a 77 year old female who presents today stating that she needs to get in to see handkerchief sample clerk sooner than June. She was recommended to follow up with pcp to escalate visit. She currently sees pulmonary Dr. Gomes for COPD. Did have COVID in February 2022. She requested that pulmonary order a PFT as her COPD has gotten significantly worse since having COVID in February 2022. Pulmonary stated that they would not order a PFT until she is seen and she cannot be seen by Dr. Gomes until June 2022. Pulmonary recommended that she be seen in our office to have a PFT ordered. She states that in the morning she showers and gets dressed. Has to take multiple breaks with this. Has coughing and gasps for air if she exerts herself. Has to rest multiple times daily with any activity. Coughs up some very light yellow mucous but not all the time. Does wheeze. No fevers. Does not feel sick. Taking Stiolto 2 puffs daily. Using Albuterol inhaler maybe three times daily. She leads a very sedentary life due to her breathing restrictions. Not a lot of night-time awakenings, maybe once. Smoked 12 years ago, but nothing since. No swelling to her ankles. No warning s/s present today. She has some mild wheezing on exam but no respiratory distress. Not short of breath at rest. She does admit to being more short of breath since COVID in 2021 from her COPD. Will obtain CT chest and PFT. Further treatment pending results of testing. She will continue her current COPD medication and Albuterol inhaler PRN. Will attempt to get her in to see pulmonary sooner pending the results of her testing. Warning s/s reviewed with patient today. Patient to go immediately to the ER should pt experience any of these. Patient verbalizes understanding and agrees to treatment plan. 28 Sep, 2022 Shortness of breath (ICD-10 - R06.02) See above treatment plan. Apr, Other forms of dyspnea (ICD-10 - R06.09) See above treatment plan. 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 Apr, Irregular heart rhythm (ICD-10 - I49.9) Does have an irregular heart rhythm at times on exam today. In office EKG shows: SR with PAC. Probable normal variant. She is asymptomatic with this. Apr, Prediabetes (ICD-10 - R73.03) Routine lab work ordered as she is due. Will continue current treatment plan pending lab results. Apr, Hyperlipidemia, unspecified (ICD-10 - E78.5) Routine lab work ordered as she is due. Will continue current treatment plan pending lab results. [employer] Other 06-10-2022 Evaluation note* Encounter Date Diagnosis Assessment Notes Treatment Notes Treatment Clinical Notes Jan, Chronic obstructive pulmonary disease, unspecified (ICD-10 - J44.9) [employer] Other 04-04-2022 Evaluation note* Encounter Date Diagnosis Assessment Notes Treatment Notes Treatment Clinical Notes Nov, Chronic obstructive pulmonary disease, unspecified (ICD-10 - J44.9) [employer] Other 03-01-2022 Evaluation note* Encounter Date Diagnosis Assessment Notes Treatment Notes Treatment Clinical Notes Oct, Chronic obstructive pulmonary disease, unspecified (ICD-10 - J44.9) [employer] Other 01-06-2022 Evaluation note* Encounter Date Diagnosis Assessment Notes Treatment Notes Treatment Clinical Notes Aug, Decreased renal clearance (ICD-10 - R94.4) [employer] Other 10-26-2021 Evaluation note* Encounter Date Diagnosis Assessment Notes Treatment Notes Treatment Clinical Notes May, Chronic obstructive pulmonary disease, unspecified (ICD-10 - J44.9) Patient presents today for oxygen due to advanced COPD. She does follow with pulmonary Dr. Gomes but was unable to get into see him for the next few weeks. She did a 4 minute 45 second walk study in the office today and dipped down to 90% oxygen saturation and had to stop due to shortness of breath. She does not qualify for oxygen with these readings. This was discussed with her. She does not feel sick . I did discuss with her that since she has some mild wheezing, pulmonary may want her to change up her regimen of just Stiolto. Our office did call pulmonary, updated them, and they will contact patient later today. Patient was notified and she is agreeable to this and understands. She is overdue for appointment and will follow up in 4 weeks for her medicare wellness visit. Warning s/s reviewed with patient today. Patient to go immediately to the ER should pt experience any of these. Patient verbalizes understanding and agrees to treatment plan. [employer] Other Evaluation + Plan note Future Appointments Appointment Date:06/04/2023 01:45:00 PM Scheduled Provider: Location:[facility] Appointment Type:Urology CALL PAT FT Appointment Date:06/11/2023 02:45:00 PM Scheduled Provider: Location:[facility] Appointment Type:Urology FT Appointment Date:08/12/2023 11:00:00 AM Scheduled Provider:Garcia TURNER MD Location:[facility] Appointment Type:URO New Patient Diagnostic Tests Pending * [facility] Future Appointments Appointment Date:06/04/2023 01:45:00 PM Scheduled Provider: Location:[facility] Appointment Type:Urology CALL PAT FT Appointment Date:06/11/2023 02:45:00 PM Scheduled Provider: Location:[facility] Appointment Type:Urology FT Appointment Date:08/12/2023 11:00:00 AM Scheduled Provider:Garcia TURNER MD Location:[facility] Appointment Type:URO New Patient [facility] evaluation + Plan note Future Appointments Appointment Date:08/12/2023 11:00:00 AM Scheduled Provider:Garcia TURNER MD Location:[facility] Appointment Type:URO New Patient Diagnostic Tests Pending * [facility] Future Appointments Appointment Date:12/16/2023 12:45:00 PM Scheduled Provider:Garcia TURNER MD Location:[facility] Appointment Type:URO [facility] Future Appointments Appointment Date:01/14/2024 11:00:00 AM Scheduled Provider:CARLOS A Ellison APRN, [place] X Location:[facility] Appointment Type:URO Office Visit [facility] evaluation + Plan note Future Appointments Appointment Date:02/04/2024 11:30:00 AM Scheduled Provider:CARLOS A Ellison APRN, [place] X Location:[facility] Appointment Type:URO Office Visit [facility] evaluation + Plan note Future Appointments Appointment Date:02/18/2024 11:30:00 AM Scheduled Provider:CARLOS A Ellison APRN, [place] X Location:[facility] Appointment Type:URO Office Visit [facility] evaluation noteNo InformationNort1[employer] Other evaluation noteNo assessment information available [facility] Work Phone: Evaluation note* Diagnosis Onset Date Resolution Status Pulmonary nodule acute Perineal abscess chronic Wound pain chronic [facility] Work Phone: evaluation note* Diagnosis Onset Date Resolution Status Perineal abscess resolved Wound pain resolved Pulmonary nodule acute [facility] Work Phone: evaluation noteNoeyetok Other evaluation note* Diagnosis Onset Date Resolution Status Pulmonary nodule acute [facility] Work Phone: evaluation note* Diagnosis Onset Date Resolution Status Bruised ribs acute Fractured pelvis acute Hospital discharge follow-up acute Osteoporosis acute [facility] Work Phone: Evaluation note* Diagnosis Onset Date Resolution Status Bruised ribs acute Fractured pelvis acute Hospital discharge follow-up acute Osteoporosis acute COPD (chronic obstructive pulmonary disease) acute NANCY (generalized anxiety disorder) acute High cholesterol acute History of pulmonary embolus (PE) acute Hypertension acute Moderate major depression ac javier Prediabetes acute Psoriasis acute [facility] Work Phone: Evaluation note* Diagnosis Onset Date Resolution Status COPD (chronic obstructive pulmonary disease) acute NANCY (generalized anxiety disorder) acute High cholesterol acute History of pulmonary embolus (PE) acute Hypertension acute Moderate major depression ac javier Prediabetes acute Psoriasis acute 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 [facility] Work Phone: Evaluation note* Diagnosis Onset Date Resolution Status Admit Date MGUS (monoclonal gammopathy of unknown significance) acute October 10:57am Peripheral neuropathy acute [facility] 2024 10:57am Vitamin B12 deficiency acute [facility] 2024 10:57am [facility] Work Phone: History general Narrative - Reported* Type Description Date Medical History Hyperlipidemia Medical History Hypertension Medical History Osteoporosis Medical History psoriasis ear Medical History COPD (chronic obstructive pulmon radha disease) Medical History Pneumonia Surgical History Hip surgery post fall; had aileen and screws Surgical History Appendectomy: at age 16 Surgical History COLONOSCOPY- DR SHORT 9 Hospitalization History See above [employer] Other [facility] [employer] Other History general Narrative - Reported* Type Description Date Medical History Hyperlipidemia Medical History Hypertension Medical History Osteoporosis Medical History psoriasis ear Medical History COPD (chronic obstructive pulmon radha disease) Medical History Pneumonia Medical History vitamin D deficiency Medical History edema Medical History pulmonary embolism Surgical History Hip surgery post fall; had aileen and screws Surgical History Appendectomy: at age 16 Surgical History COLONOSCOPY- DR SHORT 9 Hospitalization History See above Hospitalization History pulmonary embolism [employer] Other Hospital course Narrative No data available for this section [facility] Hospital Discharge instructions No data available for this section [facility] Orders* Referral to Hematology Time Frame: 10/21/24, Location: None [facility] Work Phone: Progress note Author Pete Erazo [facility] August 24, 2022 11:38am Note Date/Time August 24, 2022 1 1:31am [facility] at [address] [address] Hem/Onc Follow Up Note - OP Signed Patient: Jose Kim MR#: [id number] : 1945 Acct:[id number] Age/Sex: 77 / F Type: REG RCR Copies to: Lety Flynn DNP~ Date of Service: 08/24/2022 Time of Service: 11:30 - Assessment & Plan (1) Pulmonary nodule Plan: She has multiple small subcentimeter pulmonary nodules. They are not FDG avid on PET/CT, but this may be because they are too small. They are not amenable to biopsy due to the size. They do not have particularly concerning neoplastic features with the exception of a right upper lobe spiculated appearing lesion. She has follow-up soon with pulmonology. repeat scan in aug [address] chest noncontrast in february 2023 planned. 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 Immunofixation without monoclonality [place] lambda ratio is preserved. Elevated quantitative IgG. 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 She is extremely low likelihood of hematologic malignancy. No evidence of renal failure, anemia, hypercalcemia, bony lesions on CT imaging. I offered her f/u as needed, she would like to see me in mid 2022 after scans, then likely prn only. Follow Up Instructions: ct chest noncontrast february 2023 f/u after no labs. - History of Present Illness Chief Complaint: Patient is here today for a 3 month follow up visit and go overlbas and CT scans HPI: 77 year old female primary patient of Kyara Flynn NP. She lives in [facility] but gets all of her care through [facility]. Referred for elevated paraprotein labs, and jacques nodules. Past medical history of hyperlipidemia, hypertension. osteoporosis, psoriasis, copd, pneumonia. OUtpatient meds include vitamin D3, Stoilto Respimat, albuterold, atorvastatin. She was a smoker, quit at age 57, about a pack a day at most prior to this. She follows with Dr. Gomes for COPD. She having increasing short of breath and cough for the last 6 months. This was noticeable enough hat she called her PCP and is attempting to see Dr. Gomes. She had elevated total protein and Kyara Flynn sent SPEP sflc, no monclonality. elevated quanti IgG. K/L ratio of 2.55. on may [address] chest performed noted Calcified and noncalcified nodules arenoted in the area of nodularity accompanied by atelectasis or scarring at the right lung base. This measures up to 11 mm in greatest dimension. There is ongoing clinical concern for malignancy, follow-up with PET/CT or short-term interval follow-up with chest CT could BE recommended. No concerns for mediastinal or hilar adenopathy. Pet/ct on 05/17/22 notes No mass or adenopathy in the neck identified. No bonylesion seen in the neck. No abnormal neck hypermetabolic uptake identified. Increased uptake identified in the anterior portion of the oral cavity. This may be physiologic. There are multiple lung nodules measuring up to 11 mm redemonstrated. No associated hypermetabolism identified. Mildly hypermetabolic mediastinal and bilateral hilar lymph nodes identified. These may be reactive. No abnormal chest wall hypermetabolic uptake identified. Normal accumulation of liver identified. Normal physiologic uptake of the bowelnoted. No abnormal hypermetabolic uptake seen. No abdominal mass or adenopathyidentified. Uptake in the collecting system and ureter and bladder are likely physiologic. No soft tissue wall mass or fluid collection identified. No bony lesion seen. No abnormal hypermetabolic bone lesion seen. LEFT hip fixation changes. No abnormal hypermetabolic soft tissue uptake seen. IMPRESSION: Redemonstration of multiple bilateral lung nodules measuring up to11 mm. No associated hypermetabolism of lung nodules. Mediastinal and bilateral hilar lymph nodes. These may be reactive. May consider short-term follow-up assessment. 08/24/[address] c/a/p. ct a/p with diverticulosis, no itis. ct chest with stable similar nodularity, slight more atelectasis. she follows with Dr. Gomes who has changed her inhaled medications. - Physical Exam ECOG PS: 0 General : patient is alert and oriented to person place and time, no acute distress. Neck: no JVD or thyromegaly. Lymph: no cervical, supraclavicular, axillary adenopathy. Heart: regular rate and rhythm no murmurs rubs or gallops. Abdomen: soft nontender nondistended, no hepatosplenomegaly. Lungs: cta bl, no wheezes, rales, rhonchi. Extremities: no clubbing cyanosis. - Time with Patient Coordination of Care & Counseling Time: Greater than 50% of time spent with patient was for coordination of care (as documented) and iwqc-pf-wlie counseling of patient and/or family. [facility] - Medical History Medical History: Medical History (Last Reviewed 06/13/22 @ 14:14 by Evelin Brooks RN) COPD (chronic obstructive pulmonary disease) High cholesterol Hypertension Psoriasis - Surgical History Surgical History: Surgical History (Last Reviewed 06/13/22 @ 14:14 by Evelin Brooks RN) History of surgery left leg aileen and brace d/t fell down stair 10 years ago Hx of appendectomy age 16 - Family History Family History: Family History (Last Reviewed 06/13/22 @ 14:14 by Evelin Brooks RN) Father Diabetes Alzheimers disease Heart disease Stroke Hypertension Mother Stroke Breast cancer Hypertension - Social History Smoking Status: Former smoker Substance Use Type: None Additional Data - Additional Objective Data Height/Weight: Height 5 ft 5 in Weight 97.2 kg Vital Signs: 08/24/22 11:16 Temperature 97.8 F Pulse Rate [Right Brachial] 86 Respiratory Rate 16 Blood Pressure [Right Arm] 137/68 02 Sat by Pulse Oximetry 95 Oxygen Delivery Method Room Air - Lab Results Diagram of Most Recent CBC and CMP 08/20/22 09:35 08/20/22 09:35 Labs - Last 7 Days 08/20/22 09:35: Serum Total Protein 8.2, Albumin (Send Out) 3.4, Globulin (PEP) 4.8 H, Albumin/Globulin (PEP) 0.7, Vfipd-0-Qdshdkcvz 0.3, Kypxs-8-Lhkgbbuch 1.0,Beta Globulins 1.1, Gamma Globulins 2.5 H, M-Hernando Not observed, PEP Note , IgG 2783 H, IgA 259, IgM 205, Serum Immunofixation , Free [place] LC, Quant 89.6 H, Free Lambda LC, Quant 43.1 H, Free [place]/Lambda Ratio 2.08 H 08/20/22 09:35: PHA Creatinine Clear 45.10, Sodium 138, Potassium 4.2, Chloride 106, Carbon Dioxide 26.2, Anion Gap 10.0, BUN 13, Creatinine 0.94, Est GFR ( Amer) > 60, Est GFR (Non-Af Amer) 58, Glucose 105 H, Calcium 9.5, TotalBilirubin 0.6, AST 23, ALT 18, Alkaline Phosphatase 83, Total Protein 8.6 H, Albumin 3.5, Globulin 5.1, Albumin/Globulin Ratio 0.7 08/20/22 09:35: Corrected WBC 8.8, Uncorrected WBC Count 8.8, RBC 4.50, Hgb 13.1, Hct 39.8, MCV 88.5, MCH 29.2, MCHC 33.0, RDW 14.4, Plt Count 277, MPV 7.3,Neut % (Auto) 78.1, Lymph % (Auto) 12.0, [place] % (Auto) 9.1, Eos % (Auto) 0.3, Baso % (Auto) 0.5, Nucleat RBC Rel Count 0.0, Neut # (Auto) 6.9, Lymph # (Auto) 1.1, [place] # (Auto) 0.8, Eos # (Auto) 0.0, Baso # (Auto) 0.0, ESR 58 H - Home Medications and Allergies Allergies/Adverse Reactions: Allergies No Known Allergies Allergy (Verified 08/24/22 11:15) Home Medications: Home Medications albuterol sulfate 90 mcg/actuation aerosol inhaler (ProAir HFA) 1 - 2 puff inhalation Q4-6H PRN Shortness Of Breath 06/02/18 [History Confirmed 08/24/22] atorvastatin 20 mg tablet 20 mg PO DIRECTED 06/02/18 [History Confirmed 08/24/22] cholecalciferol (vitamin D3) 50 mcg (2,000 unit) capsule (Vitamin D3) 2,000 units PO DAILY 06/02/18 [History Confirmed 08/24/22] ibuprofen 200 mg tablet 200 mg PO DIRECTED 05/17/22 [History Confirmed 08/24/22] gentamicin 0.1 % topical ointment 1 applic topical DAILY 4 weeks #30 grams 06/13/22 [Rx Confirmed 06/27/22] fluticasone fur. 100 mcg-umeclid 62.5 mcg-vilant 25 mcg inhalat.powder (Trelegy Ellipta) 1 inh inhalation Q24H 08/24/22 [History Confirmed 08/24/22] Dictated By: Pete Erazo II, DO DD/ 1130 Signed By: <Electronically signed by Pete Erazo II, DO> 08/24/22 1138 [facility] Work Phone: Progress note No data available for this section [facility] Chief Complaint and Reason for Visit Chief Complaint J44.9 R06.02 R06.09 U09.9 R73.03 E78.5 Chief Complaint J44.9 R06.02 R06.09 U09.9 R73.03 E78.5 J44.9 R06.02 R06.09 U09.9 Chief Complaint J44.9 R06.02 R06.09 U09.9 R73.03 E78.5 J44.9 R06.02 R06.09 U09.9 r91.8 r06.02 e88.09 Chief Complaint J44.9 R06.02 R06.09 U09.9 R73.03 E78.5 J44.9 R06.02 R06.09 U09.9 r91.8 r06.02 e88.09 Lung Nodules Chief Complaint J44.9 R06.02 R06.09 U09.9 R73.03 E78.5 J44.9 R06.02 R06.09 U09.9 r91.8 r06.02 e88.09 Lung Nodules Open Wound Reason for Visit Pulmonary nodule Perineal abscess Wound pain Chief Complaint Open Wound Lung Nodules Reason for Visit Perineal abscess Wound pain Pulmonary nodule Chief Complaint Open Wound Lung Nodules R06.02 Reason for Visit Perineal abscess Wound pain Pulmonary nodule Chief Complaint Open Wound Lung Nodules R06.02 R06.02 Reason for Visit Perineal abscess Wound pain Pulmonary nodule Chief Complaint s42.591 A s32.10xa s 42.294a blood in urine R31.0 Chief Complaint s42.591 A s32.10xa s 42.294a blood in urine R31.0 R50.9 Chief Complaint s42.591 A s32.10xa s 42.294a blood in urine R31.0 R50.9 R31.0 Chief Complaint s42.591 A s32.10xa s 42.294a blood in urine R31.0 R50.9 R31.0 Lung Nodules Reason for Visit Pulmonary nodule Chief Complaint R50.9 R31.0 Chief Complaint Amb Documentation Hosp/[facility] follow up/Fractured pelvis and ribs Reason for Visit Bruised ribs Fractured pelvis Hospital discharge follow-up Osteoporosis Chief Complaint Amb Documentation Hosp/[facility] follow up/Fractured pelvis and ribs 2 months Reason for Visit Bruised ribs Fractured pelvis Hospital discharge follow-up Osteoporosis COPD (chronic obstructive pulmonary disease) NANCY (generalized anxiety disorder) High cholesterol History of pulmonary embolus (PE) Hypertension Moderate major depression Prediabetes Psoriasis Chief Complaint Amb Documentation Hosp/[facility] follow up/Fractured pelvis and ribs 2 months R73.03 E78.0 J44.9 I10 Reason for Visit Bruised ribs Fractured pelvis Hospital discharge follow-up Osteoporosis COPD (chronic obstructive pulmonary disease) NANCY (generalized anxiety disorder) High cholesterol History of pulmonary embolus (PE) Hypertension Moderate major depression Prediabetes Psoriasis Chief Complaint Amb Documentation Hosp/[facility] follow up/Fractured pelvis and ribs 2 months R73.03 E78.0 J44.9 I10 R73.03 E78.00 J44.9 I10 Reason for Visit Bruised ribs Fractured pelvis Hospital discharge follow-up Osteoporosis COPD (chronic obstructive pulmonary disease) NANCY (generalized anxiety disorder) High cholesterol History of pulmonary embolus (PE) Hypertension Moderate major depression Prediabetes Psoriasis Chief Complaint 2 months R73.03 E78.0 J44.9 I10 R73.03 E78.00 J44.9 I10 Amb Documentation 1 yr f/u COPD Reason for Visit COPD (chronic obstru ctive pulmonary disease) NANCY (generalized anxiety disorder) High cholesterol History of pulmonary embolus (PE) Hypertension Moderate major depression Prediabetes Psoriasis COPD (chronic obstructive pulmonary disease) with emphysema Chief Complaint Admit Date 6 month July 22, 2024 11:05am G62.9 July 22, 2024 12:09pm g62.9 July 24, 2024 1:30pm Reason for Visit Admit Date Peripheral neuropathy July 22 11:05am Chief Complaint Admit Date g62.9 July 24, 2024 1:30pm 6 month October 21, 2024 10: 57am Reason for Visit Admit Date MGUS (monoclonal gammopathy of unknown s ignificance) October 21, 2024 10:57am Peripheral neuropathy October 21, 2024 1 0:57am Vitamin B12 deficiency October 21, 2024 10:57am Chief Complaint Admit Date g62.9 July 24, 2024 1:30pm 6 month October 21, 2024 10: 57am Z12.31 October 21, 2024 11: 31am Reason for Visit Admit Date MGUS (monoclonal gammopathy of unknown s ignificance) October 21, 2024 10:57am Peripheral neuropathy October 21, 2024 1 0:57am Vitamin B12 deficiency October 21, 2024 10:57am Breast cancer screening by mammogram [facility] 2024 10:57am Chief Complaint Admit Date 6 month October 21, 2024 10: 57am Z12.31 October 21, 2024 11: 31am D47.2 December 17, 2024 2:16p m D47.2 December 17, 2024 2:36p m Follow up MGUS January 01, 2025 11:30 am Chief Complaint Admit Date 6 month October 21, 2024 10: 57am Z12.31 October 21, 2024 11: 31am D47.2 December 17, 2024 2:16p m Follow up MGUS January 01, 2025 11:30 am follow up after [address] scan January 08, 2025 1 :42pm D47.2 January 08, 2025 1:43p m Advance Directives No Advanced Directives Records Found Advance Directive Response Recorded Date/ Time Advance Directives No November 04 8:42am Advance Directive Response Recorded Date/ Time Advance Directives No November 04 7:42am Reason for Referral Reason * 05/15 Refer t o hematology stat for recommendation on eliquis r/t PE and hematuria Diagnosis 1 Other acute pulmonar y embolism, unspecified whether acute cor pulmonale present (I26.99) Referral Organization [facility] Family Yolandain lion [employer] Referring Provider First Name Lety Referring Provider Last Name Gee Referring Provider Specialty Nurse Pract itioner Referred Organization [facility] Referred Provider Venice Yepez Referred Address [address] [place], [place],[address] Referred Provider Specialty Hematology/O ncology Referral Priority Routine General Notes Spoke to Dr Yepez's office. They need referral before they will schedule pt Sarah Maldonado 05/09/2023 01:37:14 PM >referral received and faxed Reason Refer to urology; cancel referral for local urology as they cannot get her in until August 2023 Diagnosis 1 Gross hematuria (R31 .0) Referral Organization [facility] [employer]ogic Yolandakirsten lion Ashley Referring Provider First Name Lety Referring Provider Last Name Gee Referring Provider Specialty Nurse Pract itioner Referred Provider Specialty Urology Referral Priority Routine Reason * Waiting for appt refer to Dr. Watts for closed displace right humerus fracture; not surgical candidate, increased pain Diagnosis 1 Other closed displac ed fracture of proximal end of right humerus, sequela (S42.291S) Referral Organization [facility] Family Yolandakirsten lion Sharp Referring Provider First Name Lety Referring Provider Last Name Gee Referring Provider Specialty Nurse Pract itioner Referred Organization [facility] Pain Managemen t Referred Provider Joshua Watts Referred Address [address],[address] Referred Provider Specialty Pain Medicin e Referral Priority Routine General Notes Sarah Maldonado 05/2023 01:45:49 PM > referral received and sent p2p Reason * 05/21 refer t o oncology for multiple lung nodules on CT (PET scan is ordered), hyperproteinemia, 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 Diagnosis 1 Multiple lung nodule s on CT (R91.8) Referral Organization [facility] Family Yolandain lion Ashley Referring Provider First Name Lety Referring Provider Last Name Gee Referring Provider Specialty Nurse Pract itioner Referred Organization [facility] Referred Provider Venice Yepez Referred Address [address] [place], [place],[address] Referred Provider Specialty Hematology/O ncology Referral Priority Routine General Notes Sarah Maldonado 05/2022 09:32:32 AM >referral received and faxed Family History No Family History Records Found Relationship Condition Age at Onset Recorded Date/T fatimah father Diabetes mellitus Unknown Alzheimer's disease Unknown Heart disease Unknown Cerebrovascular accident (CVA) Unknown Hypertension Unknown Not Specified Cerebrovascular accident (CVA) Unknown Malignant neoplasm of breast Unknown Summary Purpose Additional Source Comments REASON FOR VISIT (unrecogniz ed section and content) flu shotSickDISCUSS 6 MINUTE WALK TESTPt is QVPkeje4c resultslab resultsRefills- Stiolto1 year fu COPDRefill- AlbuterolNeeds to get into the handkerchief sample clerk sooner than June, and so they instructed her to see PCP which will help her escalate a visit with them.lab resultstesting results and further testingPET scan resultspftsickSick CallGRAY GARCIA EDGE, COUGH, SINUS CONGESTION, SORE THROAT, H/A, CHILLS, X1 WEEKOPEN WOUND IN THE GROIN AREA05/01 pt called requested sooner appt d/t Covid in February.handicap placardTest results4 month Follow up/G0439/LALY, hgba1c, due for mammogram, does she want?echo resultsstress test results1 yr f/u COPD4 month Follow up, [id number] in UrineFR-ERmutual patientNo Informationswellingurology appointmentpain in necklabsrefillrefillanxietygross hematuriaD/CReferral updatereferralsPATIENT HERE AT THE REQUEST OF RADHA TRIVEDI FOR WEIGHT LOSS/ NAUSEA/ AND LOSS OF APPETITErefillRefills- Trelegyrefillappt Care Teams (unrecognized sec tion and content) Team Status: Active Member Role Status Dates Lety Flynn DNP Primary Care Provider Active Team Status: Inactive Member Role Status Dates Lety Flynn DNP Primary Care Provid er, Attending Provider Active Start: February 27, 2024 End: February 27, 2024 Team Status: Inactive Member Role Status Dates Lety Flynn DNP Primary Care Provid er, Attending Provider Active Start: March 03, 2024 End: March 03, 2024 Team Status: Active Member Role Status Dates Lety Flynn DNP Primary Care Provider Active Start: April 01, 2024 Irlanda Raman LPN Attending Provider Active S tart: April 01, 2024 Team Status: Inactive Member Role Status Dates Lety Flynn DNP Primary Care Provider Active Start: April 07, 2024 End: April 07, 2024 Juliana Ye APRN [facility] Attending Provider Active Start: April 07, 2024 End: April 07, 2024 Team Status: Active Member Role Status Dates Lety Flynn DNP Primary Care Provider Active Start: December 06, 2023 Irlanda Raman LPN Attending Provider Active S tart: December 06, 2023 Team Status: Inactive Member Role Status Dates Lety Flynn DNP Primary Care Provid er, Attending Provider Active Start: December 10, 2023 End: December 10, 2023 Team Status: Inactive Member Role Status Dates Lety Flynn DNP Primary Care Provider, Attending Provider Active Team Status: Active Member Role Status Dates Lety Flynn DNP Primary Care Provider, Referring Provider Active Pete Erazo II, DO Attending Provider Active Team Status: Inactive Member Role Status Dates Lety Flynn DNP Primary Care Provider Active Cornel Lopez MD Attending Provider Active Team Status: Inactive Member Role Status Dates Lety Flynn DNP Primary Care Provider Active Pamela Valenzuela APRN Emergency Provider Active Team Status: Inactive Member Role Status Dates Lety Flynn DNP Primary Care Provider Active Emma Samson APRN Attending Provider Active Team Status: Inactive Member Role Status Dates Lety Flynn DNP Primary Care Provider, Attending Provider Active Elsy Dumas MD Referring Provider Active Team Status: Active Member Role Status Dates Petra Holliday DO Primary Care Provider Active Team Status: Inactive Member Role Status Dates Lety Flynn DNP Primary Care Provider Active Start: July 22, 2024 End: July 22, 2024 Petra Holliday DO Attending Provider Active S tart: July 22, 2024 End: July 22, 2024 Team Status: Inactive Member Role Status Dates Petra Holliday DO Primary Care Provid er, Attending Provider Active Start: July 22, 2024 End: July 22, 2024 Team Status: Inactive Member Role Status Dates Petra Holliday , DO Primary Care Provid er, Attending Provider Active Start: July 24, 2024 End: July 24, 2024 Team Status: Inactive Member Role Status Dates Petra Holliday , DO Primary Care Provid er, Attending Provider Active Start: October 21, 2024 End: October 21, 2024 Team Status: Inactive Member Role Status Dates Petra Holliday , DO Primary Care Provid er, Attending Provider Active Start: December 17, 2024 End: December 17, 2024 Team Status: Active Member Role Status Dates Petra Holliday , DO Primary Care Provid er, Attending Provider Active Start: December 17, 2024 Pete Erazo II, DO Other Provider Active Start: December 17, 2024 Team Status: Inactive Member Role Status Dates Petra Holliday , DO Primary Care Provid er, Referring Provider Active Start: January 01, 2025 End: January 01, 2025 Pete Erazo II, DO Attending Provider Active Start: January 01, 2025 End: January 01, 2025 Team Status: Inactive Member Role Status Dates Petra Holliday , DO Primary Care Provider Active Start: January 08, 2025 End: January 08, 2025 Pete Erazo II, DO Attending Provider Active Start: January 08, 2025 End: January 08, 2025 Team Status: Active Member Role Status Dates Petra Holliday , DO Primary Care Provid er, Attending Provider Active Start: January 08, 2025 Pete Erazo II, DO Other Provider Active Start: January 08, 2025 Goals (unrecognized section and content) Goals may be documented in a n alternate section INFORMATION SOURCE (unrecogn ized section and content) DATE CREATED AUTHOR 09/14/2022 [facility] DATE CREATED AUTHOR AUTHOR'S ORGANIZ ATION 02/20/2024 [facility] DATE CREATED AUTHOR AUTHOR'S ORGANIZ ATION 02/24/2024 [facility] DATE CREATED AUTHOR AUTHOR'S ORGANIZ ATION 02/15/2025 [facility] FOR RECORDS PERTAINING TO PATIENTS WHO ARE OR HAVE BEEN ENROLLED IN A CHEMICAL DEPENDENCY/SUBSTANCEABUSE PROGRAM, SOME INFORMATION MAY BE OMITTED. This clinical summary was aggregated from multiple sources. Caution should be exercised in using it in the provision of clinical care. This summary normalizes information from multiple sources, and as a consequence, information in this document may materially change the coding, format and clinical context of patient data. In addition, data may be omitted in some cases. CLINICAL DECISIONS SHOULD BE BASED ON THE PRIMARY CLINICAL RECORDS. [email or web address] provides no warranty or guarantee of the accuracy or completeness of information in this document.
--- OUTSIDE RECORDS SUMMARY | 2025-03-20 17:46 | XMS_ITS | Clinical Summary ---
Author Organization [facility] Address [address] [place] [address] Care Team Providers Care Residence Counselor Name Role Phone Unavailable Primary Care Provider Unavailabl e Encounters Date Type Department Care Team Description 01/06/2025 External Result Encounter [facility] External Department Unsolicited Pete Erazo DO from Last 3 Months Social History Tobacco Use Types Packs/Day Years Used Date Smoking Tobacco: Never Assessed Comments Unknown Sex and Gender Information Value Date Recorded Sex Assigned at Not on file Legal Sex Female 7:19 PM EDT Gender Identity Not on file Sexual Orientation Not on file Plan of Treatment Not on file Procedures Procedure Name Priority Date/Time Associated Diagnosis Comments CT CHEST WO IV CONTRAST 01/06/2025 12:47 PM EDT from Last 3 Months Results * CT chest wo IV contrast [...] Díaz M.D. 01/06/2025 1:11 PM Dictation Location: [place] [address] Transcribed By: [facility] 01/06/25 1311 Dictated By: Angelica Díaz MD 01/06/25 1247 Signed By: <Electronically signed by MD Angelica Díaz in OV> 01/06/25 1311 Narrative 01/06/2025 1:13 PM EDT [facility] [place] [address] [place] [address] CT Scan Report Signed Patient: Jazzmine Kim MR#: [id number] 6 : 1945 Acct:[id number] Age/Sex: 79 / F ADM Date: 01/08/25 Loc: Room: Type: [facility] Attending Dr: Petra Holliday DO [...] Note Radiology, Radiologist, - 02/11/2025 [facility] [place] [address] [place], [place] [id number] CT Scan Report Signed Patient: Jazzmine Kim AMR#: [id number] 6 : 5Acct:[id number] Age/Sex: 79 / FADM Date: 01/08/25 Loc: XT Room:Type: [facility] Attending Dr: Petra Holliday DO Copies to: [...] Díaz M.D. 01/06/2025 1:11 PM Dictation Location: [place] [address] Transcribed By: [facility] 01/06/25 1311 Dictated By: Angelica Díaz MD 01/06/25 1247 Signed By: <Electronically signed by MD Angelica Díaz in OV> 01/06/25 1311 Pete Erazo DO IMG CT PROCEDURES Edited Result - Final from Last 3 Months Insurance [employer]
[2025-03-20 17:58] LABS: Hematocrit 40.2 % (36.0-48.0); Hemoglobin 12.9 g/dL (12.0-16.0); Immature Granulocytes Abs Auto 0.07 10^3/uL (0.00-0.03); Immature Granulocytes Pct Auto 0.9 % (0.0-0.5); Lymphocytes Absolute Auto 1.5 10^3/uL (1.2-3.8); Mean Corpuscular HGB Conc 32.1 g/dL (29.9-35.2); Mean Corpuscular Hemoglobin 29.5 pg (26.7-34.0); Mean Corpuscular Volume 91.8 fL (81.0-99.0); Platelet Count 259 10^3/uL (150-450); Red Blood Count 4.38 10^6/uL (4.20-5.40); White Blood Count 7.6 10^3/uL (4.0-11.0)
[2025-03-20 18:06] LABS: Anion Gap 11.7; Blood Urea Nitrogen 21.0 mg/dL (7.0-18.0); Calcium 9.0 mg/dL (8.5-10.1); Carbon Dioxide 26.3 mmol/L (21.0-32.0); Chloride 104 mmol/L (98-107); Estimated GFR (African America >60 (>=60 mL/min/1.73m^2); Estimated GFR (Non-African Ame 58 (>=60 mL/min/1.73m^2); Glucose 115 mg/dL (74-106); Potassium 4.0 mmol/L (3.5-5.1); Sodium 138 mmol/L (136-145)
[2025-03-20] MEDS: 0.9 % SODIUM CHLORIDE 500 ML IV (18:08)
[2025-03-20] MEDS: ALBUTEROL SULFATE 2.5 MG/3 ML VIAL NEB IH ×2 (18:28→20:01)
[2025-03-20] MEDS: METHYLPREDNISOLONE SOD SUCC PF 125 MG/2 ML VIAL IVP (20:43)
[2025-03-20] MEDS: AZITHROMYCIN 250 MG TABLET 500 MG PO (20:43)
--- OUTSIDE RECORDS SUMMARY | 2025-03-20 22:15 | XMS_ITS | CCD ---
Author Organization [facility] Care Team Providers Care Atm Manager Name Role Phone Lety Flynn Unavailable Anatoliy Nunez Unavailable Laron Gomes Unavailable Lety Flynn Unavailable Juliana Ye Unavailable SARA Flynn Primary Care Provider SARA Flynn Attending Provider SARA Flynn Referring Provider [phone] DO Pete Erazo II Attending Provider [phone] Mckenzie Bates Unavailable SARA Flynn Primary Care Provider SARA Flynn Attending Provider SARA Flynn Referring Provider DO Pete Erazo II Attending Provider [phone] TRENTON Samson Attending Provider SARA Flynn Primary Care Provider SARA Flynn Referring Provider [phone] DO Pete Erazo II Attending Provider SARA Flynn Attending Provider MD Elsy Dumas Referring Provider Cornel Lopez Unavailable SARA Flynn Primary Care Provider MD Cornel Lopez Attending Provider TRENTON Valenzuela Emergency Provider [phone] SARA Flynn Attending Provider SARA Flynn Referring Provider DO Pete Erazo II Attending Provider [phone] LETY FLYNN Primary Care Physician Joshua Watts Unavailable Asaad, Imad Unavailable SARA Flynn Primary Care Provider SARA Flynn Attending Provider [phone] LETY FLYNN Referring Unavailable TURNER, Garcia R [...] Care Provider DeWilde DO, Petra Attending Provider Unavailable Primary Care Provider Unavailabl e DeWilde DO, Petra Primary Care Provider DeWilde DO, Petra Attending Provider Pete Erazo DO Other Provider Pete Erazo DO Other Provider [phone] Pete Erazo II Consulting Unavaila ble DeWilde, [...] Medication Allergies] Propensity to adverse reactions (disorder) [facility] Repository Medications Current Medications Medication Drug Class(es) [...] 07, 2024 2:33pm Start: 04-12-2023 End: 10-07-2024 Brhjqjrnckh-Wyqqbigni-Drbbeu er (Trelegy Ellipta) 200-62.5-25 mcg Blister With [...] BID, # 30 caplet(s), Refills(s) 0, Pharmacy: [facility]/pharmacy #[id number], 161, cm, 09/17/23 12:54:00 EST, Height/Length Dosing, 56, kg, 09/17/23 12:54:00 EST, Weight Dosing Start Date: 10/21/23 Status: Ordered Start: 09-17-2023 End: 11-16-2023 take 1 capsule by mouth once daily Macrobid 100 mg Cap 100 mg = 1 cap(s), Oral, Daily, X 30 day(s), # 30 cap(s), Refills(s) 1, Pharmacy: [facility]/pharmacy #[id number], 161, cm, 09/17/23 12:54:00 EST, Height/Length Dosing, 56, kg, 09/17/23 12:54:00 EST, Weight Dosing Start Date: 09/17/23 Stop Date: 11/16/23 Status: Ordered Start: 08-23-2023 take 1 capsule by [facility] twice daily Macrobid 100 mg Cap 100 mg = 1 cap(s), Oral, BID, # 30 caplet(s), Refills(s) 0, Pharmacy: [facility]/pharmacy #[id number], 161, cm, 06/07/23 10:48:00 [...] day(s), # 74 cap(s), Refills(s) 0, [id number], 161, cm, 06/07/23 10:48:00 EDT, Height/Length Dosing, 56, kg, 05/20/23 13:47:00 EDT, Weight Dosing Start Date: 06/11/23 Stop Date: 08/17/23 Status: Ordered take 1 capsule by [facility] every twelve hours Macrobid 100 MG 1 [...] Drug Class(es) Dates Sig (Normalized) Sig (Original) [id number] 200 actuat albuterol 0.09 mg/actuat metered dose [...] day(s), # 2 cap(s), Refills(s) 0, Pharmacy: [facility]/pharmacy #[id number], 161, cm, 05/20/23 13:47:00 [...] 12, 2023 12:23pm Start: 08-24-2022 End: 04-12-2023 Kdqmzvskegx-Wtpnaccdl-Urxgau er (Trelegy Ellipta) 100-62.5-25 mcg Blister With [...] May 17, 2023 3:25pm polyethylene glycol 3350 88371 mg powder for oral solution (20 sources) [...] Interpretation Reference Range Facility CT chest wo [facility] 01-06-2025 CT chest [place] [address] CT Scan Report Signed Patient: Jose Kim MR#: [id number] 6 : 1945 Acct:[id number] Age/Sex: 79 / F ADM Date: 01/08/25 Loc: Room: Type: [facility] RCR Attending Dr: Petra Holliday DO Copies [...] Díaz M.D. 01/06/2025 1:11 PM Dictation Location: [place] [address] Transcribed By: [facility] 01/06/25 1311 Dictated By: Angelica Díaz MD 01/06/25 1247 Signed By: 01/06/25 1311 Normal [facility] Alanine aminotransferase [En zymatic activity/volume] in Serum or PlasmaOrdered By: Pete Erazo on 12-17-2024 ALT [Catalytic activity/Vol] Alanine aminotransferase [Enzymatic activity/volume] in Serum or Plasma [facility] Albumin [Mass/volume] in Ser um or Plasma by Bromocresol green (BCG) dye binding methoOrdered By: Pete Erazo on 12-17-2024 Albumin BCG dye [Mass/Vol] Albumin [Mass/volume] in Serum or Plasma by Bromocresol green (BCG) dye binding metho 3.5-5.7 [facility] Alkaline phosphatase [Enzyma tic activity/volume] in Serum or PlasmaOrdered By: Pete Erazo on 12-17-2024 ALP [Catalytic activity/Vol] Alkaline phosphatase [Enzymatic activity/volume] in Serum or Plasma High 34-104 [facility] Aspartate aminotransferase [ Enzymatic activity/volume] in Serum or PlasmaOrdered By: Pete Erazo on 12-17-2024 AST [Catalytic activity/Vol] Aspartate aminotransferase [Enzymatic activity/volume] in Serum or Plasma 13-39 [facility] Basophils Auto (Bld) [#/Vol] Ordered By: Pete Erazo on 12-17-2024 Basophils (Bld) [#/Vol] Automated basophil count 0.0-0.2 [facility] Basophils/100 WBC Auto (Bld) Ordered By: Pete Erazo on 12-17-2024 Basophils/100 WBC (Bld) Automated basophil % . [facility] Bilirubin.total [Mass/volume ] in Serum or PlasmaOrdered By: Pete Erazo on 12-17-2024 Bilirubin [Mass/Vol] Bilirubin.total [Mass/volume] in Serum or Plasma 0.3-1.0 [facility] CBC W Auto Differential pane l (Bld)on 12-17-2024 Basophils (Bld) [#/Vol] 0 10*3/uL 0.0 - 0.2 10*3/uL [facility] Basophils/100 WBC Manual cnt (Syn fld) 0.5 % . [facility] Eosinophils (Bld) [#/Vol] 0.2 10*3/uL 0.0 - 0.45 10*3/uL [facility] Eosinophils/100 WBC Manual cnt (Syn fld) 2.8 % . [facility] Erythrocyte distribution width (RBC) [Ratio] 13.8 % 11.9 - 15.3 % [facility] Hematocrit (Bld) [Volume fraction] 38.9 % 34.0 - 46.4 % [facility] Hemoglobin (Bld) [Mass/Vol] 12.8 g/dL 11.8 - 15.4 g/dL [facility] Lymphocytes (Bld) [#/Vol] 1.3 10*3/uL 1.00 - 4.8 10*3/uL [facility] Lymphocytes/100 WBC Manual cnt (Syn fld) 16 % . [facility] MCH (RBC) [Entitic mass] 29.9 pg 24.7 - 34.3 pg [facility] MCHC (RBC) [Mass/Vol] 32.8 g/dL 32.0 - 35.0 g/dL [facility] MCV (RBC) [Entitic vol] 91.2 fL 80 - 100 fL [facility] Monocytes (Bld) [#/Vol] 0.7 10*3/uL 0.0 - 0.8 10*3/uL [facility] Monocytes+Macrophages/1 00 WBC Manual cnt (Syn fld) 8.4 % . [facility] Neutrophils (Bld) [#/Vol] 5.8 10*3/uL 1.8 - 7.7 10*3/uL [facility] Neutrophils/100 WBC Manual cnt (Syn fld) 72.3 % . [facility] NRBC 0 /100{WBC} 0 - 0.5 /100{WBC} [facility] Platelet mean volume (Bld) [Entitic vol] 8 fL 6.3 - 10.7 fL [facility] Platelets (Bld) [#/Vol] 282 10*3/uL 150 - 450 10*3/uL [facility] RBC LM.HPF (Urine sed) [#/Area] 4.27 10*6/uL 3.60 - 5.00 10*6/uL [facility] WBC (Bld) [#/Vol] 8 10*3/uL 3.8 - 11.6 10*3/uL [facility] WBC LM.HPF (Urine sed) [#/Area] 8 10*3/uL 3.8 - 11.6 10*3/uL [facility] Calcium [Mass/volume] in Ser um or PlasmaOrdered By: Pete Erazo on 12-17-2024 Calcium [Mass/Vol] Calcium [Mass/volume ] in Serum or Plasma 8.6-10.3 [facility] Carbon dioxide, total [Moles /volume] in Serum or PlasmaOrdered By: Pete Erazo on 12-17-2024 CO2 [Moles/Vol] Carbon dioxide, tota l [Moles/volume] in Serum or Plasma 21.0-31.0 [facility] Chloride [Moles/volume] in S asiya or PlasmaOrdered By: Pete Erazo on 12-17-2024 Chloride [Moles/Vol] Chloride [Moles/vol ume] in Serum or Plasma 98-107 [facility] Complete Blood Count Auto Di ffon 12-17-2024 Basophils (Bld) [#/Vol] 0.0 10*3/uL Normal 0.0-0.2 [facility] Comment on above: Result Comment: PERF ORMED BY: [place] [address] PATHOLOGIST DIRECTOR BUSINESS TRAVEL KATELYNN HAMILTON M.D. Performed By: #### K APPA, SULAIMAN SERUM, SPE #### [facility] , #### CMP #### [address] Basophils/100 WBC (Bld) 0.5 % Normal . T [facility] Comment on above: Performed By: #### K APPA, SULAIMAN SERUM, SPE #### [facility] , #### CMP #### [address] Eosinophils (Bld) [#/Vol] 0.2 10*3/uL Normal 0.0-0.45 [facility] Comment on above: Performed By: #### K APPA, SULAIMAN SERUM, SPE #### [facility] , #### CMP #### [address] Eosinophils/100 WBC (Bld) 2.8 % Normal . [facility] Comment on above: Performed By: #### K APPA, SULAIMAN SERUM, SPE #### [facility] , #### CMP #### [address] Erythrocyte distribution width (RBC) [Ratio] 13.8 % Normal 11.9-15.3 [facility] Comment on above: Performed By: #### K APPA, SULAIMAN SERUM, SPE #### [facility] , #### CMP #### [address] Hematocrit (Bld) [Volume fraction] 38.9 % Normal 34.0-46.4 [facility] Comment on above: Performed By: #### K APPA, SULAIMAN SERUM, SPE #### [facility] , #### CMP #### [address] Hemoglobin (Bld) [Mass/Vol] 12.8 g/dL Normal 11.8-15.4 [facility] Comment on above: Performed By: #### K APPA, SULAIMAN SERUM, SPE #### [facility] , #### CMP #### [address] Lymphocytes (Bld) [#/Vol] 1.3 10*3/uL Normal 1.00-4.8 [facility] Comment on above: Performed By: #### K APPA, SULAIMAN SERUM, SPE #### [facility] , #### CMP #### [address] Lymphocytes/100 WBC (Bld) 16.0 % Normal . [facility] Comment on above: Performed By: #### K APPA, SULAIMAN SERUM, SPE #### [facility] , #### CMP #### [address] MCH (RBC) [Entitic mass] 29.9 pg Normal 24.7-34.3 [facility] Comment on above: Performed By: #### K APPA, SULAIMAN SERUM, SPE #### [facility] , #### CMP #### [address] MCV (RBC) [Entitic vol] 91.2 fL Normal 80-100 [facility] Comment on above: Performed By: #### K APPA, SULAIMAN SERUM, SPE #### [facility] , #### CMP #### [address] Mean Corpuscular HGB Conc 32.8 g/dL Normal 32.0-35.0 [facility] Comment on above: Performed By: #### K APPA, SULAIMAN SERUM, SPE #### [facility] , #### CMP #### [place] [address] [place] Monocytes (Bld) [#/Vol] 0.7 10*3/uL Normal 0.0-0.8 [facility] Comment on above: Performed By: #### K APPA, SULAIMAN SERUM, SPE #### [facility] , #### CMP #### [address] Monocytes/100 WBC (Bld) 8.4 % Normal . [facility] Comment on above: Performed By: #### K APPA, SULAIMAN SERUM, SPE #### [facility] , #### CMP #### [place] [address] [place] Neutrophils (Bld) [#/Vol] 5.8 10*3/uL Normal 1.8-7.7 [facility] Comment on above: Performed By: #### K APPA, SULAIMAN SERUM, SPE #### [facility] , #### CMP #### [place] [address] [place] Neutrophils/100 WBC (Bld) 72.3 % Normal . [facility] Comment on above: Performed By: #### K APPA, SULAIMAN SERUM, SPE #### [facility] , #### CMP #### [place] [address] [place] NRBC% 0.0 /100{WBC} Normal 0-0.5 [facility] Comment on above: Performed By: #### K APPA, SULAIMAN SERUM, SPE #### [facility] , #### CMP #### [address] Platelet mean volume (Bld) [Entitic vol] 8.0 fL Normal 6.3-10.7 [facility] Comment on above: Performed By: #### K APPA, SULAIMAN SERUM, SPE #### [facility] , #### CMP #### [address] Platelets (Bld) [#/Vol] 282 10*3/uL Normal 150-450 [facility] Comment on above: Performed By: #### K APPA, SULAIMAN SERUM, SPE #### [facility] , #### CMP #### [address] RBC (Bld) [#/Vol] 4.27 10*6/uL Normal 3.60-5.00 [facility] Comment on above: Performed By: #### K APPA, SULAIMAN SERUM, SPE #### [facility] , #### CMP #### [address] WBC (Bld) [#/Vol] 8.0 10*3/uL Normal 3.8-11.6 [facility] Comment on above: Performed By: #### K APPA, SULAIMAN SERUM, SPE #### [facility] , #### CMP #### [address] Comprehensive Metabolic Pane norma 12-17-2024 Albumin [Mass/Vol] 3.7 g/dL Normal 3.5-5.7 [facility] Comment on above: Performed By: #### K APPA, SULAIMAN SERUM, SPE #### [facility] , #### CMP #### [facility] [address] [place] [address] Albumin/Globulin [Mass ratio] 0.9 {ratio} Normal [facility] Comment on above: Performed By: #### K APPA, SULAIMAN SERUM, SPE #### [facility] , #### CMP #### [address] ALP [Catalytic activity/Vol] 106 U/L High 34-104 [facility] Comment on above: Result Comment: PERF ORMED BY: [place] [address] PATHOLOGIST DIRECTOR BUSINESS TRAVEL KATELYNN HAMILTON M.D. Performed By: #### K APPA, SULAIMAN SERUM, SPE #### [facility] , #### CMP #### [address] ALT [Catalytic activity/Vol] 12 U/L Normal 7-52 [facility] Comment on above: Performed By: #### K APPA, SULAIMAN SERUM, SPE #### [facility] , #### CMP #### [address] Anion gap [Moles/Vol] 8.7 mmol/L Normal 6.0-15.0 [facility] Comment on above: Performed By: #### K APPA, SULAIMAN SERUM, SPE #### [facility] , #### CMP #### [address] AST [Catalytic activity/Vol] 16 U/L Normal 13-39 [facility] Comment on above: Performed By: #### K APPA, SULAIMAN SERUM, SPE #### [facility] , #### CMP #### [address] Bilirubin [Mass/Vol] 0.3 mg/dL Normal 0.3-1.0 [facility] Comment on above: Performed By: #### K APPA, SULAIMAN SERUM, SPE #### [facility] , #### CMP #### [address] Calcium [Mass/Vol] 9.3 mg/dL Normal 8.6-10.3 [facility] Comment on above: Performed By: #### K APPA, SULAIMAN SERUM, SPE #### [facility] , #### CMP #### [address] Chloride [Moles/Vol] 106 mmol/L Normal 98-107 [facility] Comment on above: Performed By: #### K APPA, SULAIMAN SERUM, SPE #### [facility] , #### CMP #### [address] CO2 [Moles/Vol] 29.3 mmol/L Normal 21.0-31.0 [facility] Comment on above: Performed By: #### K APPA, SULAIMAN SERUM, SPE #### [facility] , #### CMP #### [address] Creatinine [Mass/Vol] 0.86 mg/dL Normal 0.60-1.20 [facility] Comment on above: Performed By: #### K APPA, SULAIMAN SERUM, SPE #### [facility] , #### CMP #### [place] [address] [place] GFR/1.73 sq M.predicted MDRD (S/P/Bld) [Vol rate/Area] mL/min/{1.73_m2} Normal [facility] Comment on above: Performed By: #### K APPA, SULAIMAN SERUM, SPE #### [facility] , #### CMP #### [place] [address] [place] Globulin (S) [Mass/Vol] 4.2 g/dL Normal T [facility] Comment on above: Performed By: #### K APPA, SULAIMAN SERUM, SPE #### [facility] , #### CMP #### [address] Glucose [Mass/Vol] 93 mg/dL Normal 70-100 [facility] Comment on above: Result Comment: [facility] Glucose Reference Range is dependent on time and content of last meal. Glucose of more than 200 mg/dL in a nonstressed, ambulatory subject supports the diagnosis of Diabetes Mellitus. ADA recommended reference range Performed By: #### K APPA, SULAIMAN SERUM, SPE #### [facility] , #### CMP #### [address] Potassium [Moles/Vol] 4.0 mmol/L Normal 3.5-5.1 [facility] Comment on above: Performed By: #### K APPA, SULAIMAN SERUM, SPE #### [facility] , #### CMP #### [place] [address] [place] Protein [Mass/Vol] 7.9 g/dL Normal 6.4-8.9 [facility] Comment on above: Performed By: #### K APPA, SULAIMAN SERUM, SPE #### [facility] , #### CMP #### [place] [address] [place] Sodium [Moles/Vol] 140 mmol/L Normal 136-145 [facility] Comment on above: Performed By: #### K APPA, SULAIMAN SERUM, SPE #### [facility] , #### CMP #### [place] [address] [place] Urea nitrogen [Mass/Vol] 22 mg/dL Normal 7-25 [facility] Comment on above: Performed By: #### K APPA, SULAIMAN SERUM, SPE #### [facility] , #### CMP #### [facility] [address] Comprehensive metabolic pane [facility] 12-17-2024 Albumin [Mass/Vol] 3.7 g/dL 3.5 - 5.7 g/dL [facility] Albumin/Globulin [Mass ratio] 0.9 {ratio} [facility] ALP [Catalytic activity/Vol] 106 U/L High 34 - 104 U/L [facility] ALT [Catalytic activity/Vol] 12 U/L 7 - 52 U/L [facility] Anion gap [Moles/Vol] 8.7 mmol/L 6.0 - 15.0 meq/L [facility] AST [Catalytic activity/Vol] 16 U/L 13 - 39 U/L [facility] Bilirubin [Mass/Vol] 0.3 mg/dL 0.3 - 1 .0 mg/dL [facility] Calcium [Mass/Vol] 9.3 mg/dL 8.6 - 10. 3 mg/dL [facility] Chloride [Moles/Vol] 106 mmol/L 98 - 10 7 mmol/L [facility] CO2 [Moles/Vol] 29.3 mmol/L 21.0 - 31.0 mmol/L [facility] Creatinine (U) [Mass/Vol] 0.86 mg/dL 0.60 - 1.20 mg/dL [facility] ESTIMATED GFR mL/Min [facility] Globulin (S) [Mass/Vol] 4.2 g/dL [facility] Glucose [Mass/Vol] 93 mg/dL 70 - 100 mg/dL [facility] Comment on above: Random Glucose Refer ence Range is dependent on time and content of last meal. Glucose of more than 200 mg/dL in a nonstressed, ambulatory subject supports the diagnosis of Diabetes Mellitus. ADA recommended reference range Interpretation and review of laboratory results [facility] Potassium [Moles/Vol] 4 mmol/L 3.5 - 5.1 mmol/L [facility] Protein [Mass/Vol] 7.9 g/dL 6.4 - 8.9 g/dL [facility] Sodium [Moles/Vol] 140 mmol/L 136 - 145 mmol/L [facility] Urea nitrogen [Mass/Vol] 22 mg/dL 7 - 25 mg/dL [facility] Creatinine [Mass/volume] in Serum or PlasmaOrdered By: Pete Erazo on 12-17-2024 Creatinine [Mass/Vol] Creatinine [Mass/v olume] in Serum or Plasma 0.60-1.20 [facility] Eosinophils Auto (Bld) [#/Vo l]Ordered By: Pete Erazo on 12-17-2024 Eosinophils (Bld) [#/Vol] Automated eosinophil count 0.0-0.45 [facility] Eosinophils/100 WBC Auto (Bl d)Ordered By: Pete Erazo on 12-17-2024 Eosinophils/100 WBC (Bld) Automated eosinophil % . [facility] Erythrocyte distribution wid th Auto (RBC) [Ratio]Ordered By: Pete Erazo on 12-17-2024 Erythrocyte distribution width (RBC) [Ratio] Erythrocyte distribution width [Ratio] by Automated count 11.9-15.3 [facility] Free K+L LT Chains, Qn, Son 12-17-2024 Free [place] Light Chains, S 86.1 mg/L High 3.3-19.4 [facility] Comment on above: Performed By: #### K APPA, SULAIMAN SERUM, SPE #### [facility] , #### CMP #### [facility] [address] [place] [address] Free Lambda Light Chains, S 43.9 mg/L High 5.7-26.3 [facility] Comment on above: Performed By: #### K APPA, SULAIMAN SERUM, SPE #### [facility] , #### CMP #### [facility] [address] [place] [address] [place]/Lambda Ratio, S 1.96 High 0.26-1.65 [facility] Comment on above: Result Comment: Perf ormed at: CB - [facility] [address] [id number] Golf Ball Inspector: Raghav Murphy PhD, Phone: [phone] PERFORMED BY: [place] [address] PATHOLOGIST DIRECTOR BUSINESS TRAVEL KATELYNN HAMILTON M.D. Performed By: #### K APPA, SULAIMAN SERUM, SPE #### [facility] , #### CMP #### [facility] [address] [place] [address] [place] Globulin Calc (S) [Mass/Vol] Ordered By: Pete Erazo on 12-17-2024 Globulin (S) [Mass/Vol] Serum globulin measurement by calculation (mass/volume) [facility] Glucose [Mass/volume] in Ser um or PlasmaOrdered By: Pete Erazo on 12-17-2024 Glucose [Mass/Vol] Glucose [Mass/volume ] in Serum or Plasma 70-100 [facility] Comment on above: ADA recommended refe rence rangeRandom Glucose Reference Range is dependent on time and content of last meal. Glucose of more than 200 mg/dL in a nonstressed, ambulatory subject supports the diagnosis of Diabetes Mellitus. Hematocrit Auto (Bld) [Volum e fraction]Ordered By: Pete Erazo on 12-17-2024 Hematocrit (Bld) [Volume fraction] Hematocrit [Volume Fraction] of Blood by Automated count 34.0-46.4 [facility] Hemoglobin [Mass/volume] in BloodOrdered By: Pete Erazo on 12-17-2024 Hemoglobin (Bld) [Mass/Vol] Hemoglobin [Mass/volume] in Blood 11.8-15.4 [facility] Immunofixation,Serumon 12-17 Immunofixation, Serum Comment Normal . [facility] Comment on above: Result Comment: No m onoclonality detected. Performed By: #### K APPA, SULAIMAN SERUM, SPE #### [facility] , #### CMP #### [facility] [address] [place] [address] [place] Immunoglobulin A, Serum 282 mg/dL Normal 64-422 [facility] Comment on above: Performed By: #### K APPA, SULAIMAN SERUM, SPE #### [facility] , #### CMP #### [facility] [address] [place] [id number] [place] Immunoglobulin G 2776 mg/dL High [phone] [facility] Comment on above: Performed By: #### K APPA, SULAIMAN SERUM, SPE #### [facility] , #### CMP #### [facility] [address] Immunoglobulin M, Serum 137 mg/dL Normal 26-217 [facility] Comment on above: Result Comment: Perf ormed at: CB - [facility] [place] [id number] Golf Ball Inspector: Raghav Murphy PhD, Phone: [phone] Performed By: #### K APPA, SULAIMAN SERUM, SPE #### [facility] , #### CMP #### [facility] [address] Leukocytes [#/volume] correc tiffanie for nucleated erythrocytes in Blood by Automated counOrdered By: Pete Erazo on 12-17-2024 WBC corrected for nucl RBC Auto (Bld) [#/Vol] Leukocytes [#/volume] corrected for nucleated erythrocytes in Blood by Automated coun 3.8-11.6 [facility] Lymphocytes Auto (Bld) [#/Vo l]Ordered By: Pete Erazo on 12-17-2024 Lymphocytes (Bld) [#/Vol] Lymphocytes [#/volume] in Blood by Automated count 1.00-4.8 [facility] Lymphocytes/100 WBC Auto (Bl d)Ordered By: Pete Erazo on 12-17-2024 Lymphocytes/100 WBC (Bld) Lymphocytes/100 leukocytes in Blood by Automated count . [facility] MCH Auto (RBC) [Entitic mass ]Ordered By: Pete Erazo on 12-17-2024 MCH (RBC) [Entitic mass] MCH [Entitic mass] by Automated count 24.7-34.3 [facility] MCHC Auto (RBC) [Mass/Vol]Or dered By: Pete Erazo on 12-17-2024 MCHC (RBC) [Mass/Vol] MCHC [Mass/volume] by Automated count 32.0-35.0 [facility] MCV Auto (RBC) [Entitic vol] Ordered By: Pete Erazo on 12-17-2024 MCV (RBC) [Entitic vol] MCV [Entitic vol ume] by Automated count 80-100 [facility] Monocytes Auto (Bld) [#/Vol] Ordered By: Pete Erazo on 12-17-2024 Monocytes (Bld) [#/Vol] Automated blood monocyte count 0.0-0.8 [facility] Monocytes/100 WBC Auto (Bld) Ordered By: Pete Erazo on 12-17-2024 Monocytes/100 WBC (Bld) Automated monocyte % . [facility] Neutrophils Auto (Bld) [#/Vo l]Ordered By: Pete Erazo on 12-17-2024 Neutrophils (Bld) [#/Vol] Neutrophils [#/volume] in Blood by Automated count 1.8-7.7 [facility] Neutrophils/100 WBC Auto (Bl d)Ordered By: Pete Erazo on 12-17-2024 Neutrophils/100 WBC (Bld) Automated neutrophil % . [facility] No Panel InformationOrdered By: Pete Erazo on 12-17-2024 Estimated GFR (CKD-EPI) > 60.0 mL/Min [facility] Creatinine Clearance (Chem N/A [facility] Protein Electrophoresis M-Hernando Not observed g/dL Not Observed [facility] Protein Electrophoresis Note Comment . [facility] Comment on above: Protein electrophore sis scan will follow via computer,mail, or transfusion aide delivery.Performed at: [address] [id number] Director: Raghav Murphy PhD, Phone: [phone] Nucleated erythrocytes [Pres ence] in Blood by Automated countOrdered By: Pete Erazo on 12-17-2024 Nucleated RBC Auto Ql (Bld) Nucleated erythrocytes [Presence] in Blood by Automated count 0-0.5 [facility] Platelet mean volume Auto (B ld) [Entitic vol]Ordered By: Pete Erazo on 12-17-2024 Platelet mean volume (Bld) [Entitic vol] Platelet mean volume [Entitic volume] in Blood by Automated count 6.3-10.7 [facility] Platelets Auto (Bld) [#/Vol] Ordered By: Pete Erazo on 12-17-2024 Platelets (Bld) [#/Vol] Platelets [#/vol ume] in Blood by Automated count 150-450 [facility] Potassium [Moles/volume] in Serum or PlasmaOrdered By: Pete Erazo on 12-17-2024 Potassium [Moles/Vol] Potassium [Moles/v olume] in Serum or Plasma 3.5-5.1 [facility] Protein Electrophoresis, Ser umon 12-17-2024 Albumin [Mass/Vol] 3.0 g/dL Normal 2.9-4.4 [facility] Comment on above: Performed By: #### K APPA, SULAIMAN SERUM, SPE #### [facility] , #### CMP #### [place] [address] [place] Albumin/Globulin [Mass ratio] 0.6 {ratio} Low 0.7-1.7 [facility] Comment on above: Performed By: #### K APPA, SULAIMAN SERUM, SPE #### [facility] , #### CMP #### [facility] [address] [place] [address] [place] Cxnje-4-Gjlbzdjs 0.3 g/dL Normal 0.0-0.4 [facility] Comment on above: Performed By: #### K APPA, SULAIMAN SERUM, SPE #### [facility] , #### CMP #### [facility] [address] [place] [address] [place] Yzqlv-6-Ekkfuahw 1.1 g/dL High 0.4-1.0 [facility] Comment on above: Performed By: #### K APPA, SULAIMAN SERUM, SPE #### [facility] , #### CMP #### [facility] [address] [place] [address] [place] Beta Globulin 1.1 g/dL Normal 0.7-1.3 [facility] Comment on above: Performed By: #### K APPA, SULAIMAN SERUM, SPE #### [facility] , #### CMP #### [address] Gamma Globulin 2.5 g/dL High 0.4-1.8 [facility] Comment on above: Performed By: #### K APPA, SULAIMAN SERUM, SPE #### [facility] , #### CMP #### [address] Globulin (S) [Mass/Vol] 5.0 g/dL High 2.2-3.9 [facility] Comment on above: Performed By: #### K APPA, SULAIMAN SERUM, SPE #### [facility] , #### CMP #### [address] M-Hernando Not Observed Normal Not Observed [facility] Comment on above: Performed By: #### K APPA, SULAIMAN SERUM, SPE #### [facility] , #### CMP #### [address] Protein [Mass/Vol] 8.0 g/dL Normal 6.0-8.5 [facility] Comment on above: Performed By: #### K APPA, SULAIMAN SERUM, SPE #### [facility] , #### CMP #### [address] SPE-Note Comment Normal . [facility] Comment on above: Result Comment: Prot ein electrophoresis scan will follow via computer, mail, or transfusion aide delivery. Performed at: [address] [id number] Golf Ball Inspector: Raghav Murphy PhD, Phone: [phone] Performed By: #### K APPA, SULAIMAN SERUM, SPE #### [facility] , #### CMP #### [address] [place] [address] [facility] Protein [Mass/volume] in Ser um or PlasmaOrdered By: Pete Erazo on 12-17-2024 Protein [Mass/Vol] Protein [Mass/volume ] in Serum or Plasma 6.0-8.5 [facility] RBC Auto (Bld) [#/Vol]Ordere d By: Pete Erazo on 12-17-2024 RBC (Bld) [#/Vol] Erythrocytes [#/volu me] in Blood by Automated count 3.60-5.00 [facility] Serum free kappa light chain measurementOrdered By: Pete Erazo on 12-17-2024 Immunoglobulin light chains.kappa.free (S) [Mass/Vol] Immunoglobulin light chains.kappa.free [Mass/volume] in Serum High 3.3-19.4 [facility] Serum globulin measurement ( mass/volume)Ordered By: Pete Erazo on 12-17-2024 Globulin (S) [Mass/Vol] Serum globulin measurement (mass/volume) High 2.2-3.9 [facility] Serum immunofixation electro phoresisOrdered By: Pete Erazo on 12-17-2024 Serum Immunofixation Comment . [facility] Comment on above: No monoclonality det ected. Serum immunoglobulin free ka ppa light chains/immunoglobulin free lambda light chainsOrdered By: Pete Erazo on 12-17-2024 Immunoglobulin light chains.kappa.free/Immun oglobulin light chains.lambda.free (S) [Mass ratio] Immunoglobulin light chains.kappa.free/Immuno globulin light chains.lambda.free [Mass High 0.26-1.65 [facility] Comment on above: Performed at: [address] [id number] Director: Raghav Murphy PhD, Phone: [phone] Serum or plasma IgA measurem ent (mass/volume)Ordered By: Pete Erazo on 12-17-2024 IgA [Mass/Vol] IgA [Mass/volume] in Serum or Plasma 64-413 [facility] Serum or plasma IgG measurem ent (mass/volume)Ordered By: Pete Erazo on 12-17-2024 IgG [Mass/Vol] IgG [Mass/volume] in Serum or Plasma High 586-1602 [facility] Serum or plasma IgM measurem ent (mass/volume)Ordered By: Pete Erazo on 12-17-2024 IgM [Mass/Vol] IgM [Mass/volume] in Serum or Plasma 26-217 [facility] Comment on above: Performed at: [facility] [address] [id number] Director: Raghav Murphy PhD, Phone: [phone] Serum or plasma albumin demian urement (mass/volume)Ordered By: Pete Erazo on 12-17-2024 Albumin [Mass/Vol] Albumin [Mass/volume ] in Serum or Plasma 2.9-4.4 [facility] Serum or plasma albumin/glob ulin mass ratioOrdered By: Pete Erazo on 12-17-2024 Albumin/Globulin [Mass ratio] Serum or plasma albumin/globulin mass ratio Low 0.7-1.7 [facility] Serum or plasma alpha 1 glob ulin measurement by electrophoresis (mass/volume)Ordered By: Pete Erazo on 12-17-2024 Alpha 1 globulin Elph [Mass/Vol] Serum or plasma alpha 1 globulin measurement by electrophoresis (mass/volume) 0.0-0.4 [facility] Serum or plasma alpha 2 glob ulin measurement by electrophoresis (mass/volume)Ordered By: Pete Erazo on 12-17-2024 Alpha 2 globulin Elph [Mass/Vol] Serum or plasma alpha 2 globulin measurement by electrophoresis (mass/volume) High 0.4-1.0 [facility] Serum or plasma anion gap de terminationOrdered By: Pete Erazo on 12-17-2024 Anion gap [Moles/Vol] Serum or plasma an ion gap determination 6.0-15.0 [facility] Serum or plasma beta globuli n measurement by electrophoresis (mass/volume)Ordered By: Pete Erazo on 12-17-2024 Beta globulin Elph [Mass/Vol] Serum or plasma beta globulin measurement by electrophoresis (mass/volume) 0.7-1.3 [facility] Serum or plasma gamma globul in measurement by electrophoresis (mass/volume)Ordered By: Pete Erazo on 12-17-2024 Gamma globulin Elph [Mass/Vol] Serum or plasma gamma globulin measurement by electrophoresis (mass/volume) High 0.4-1.8 [facility] Serum or plasma immunoglobul in free lambda light chains measurement (mass/volume)Ordered By: Pete Erazo on 12-17-2024 Immunoglobulin light chains.lambda.free [Mass/Vol] Immunoglobulin light chains.lambda.free [Mass/volume] in Serum or Plasma High 5.7-26.3 [facility] Sodium [Moles/volume] in Ser um or PlasmaOrdered By: Pete Erazo on 12-17-2024 Sodium [Moles/Vol] Sodium [Moles/volume ] in Serum or Plasma 136-145 [facility] Urea nitrogen [Mass/volume] in Serum or PlasmaOrdered By: Pete Erazo on 12-17-2024 Urea nitrogen [Mass/Vol] Urea nitrogen [Mass/volume] in Serum or Plasma 7-25 [facility] WBC Auto (Bld) [#/Vol]Ordere d By: Pete Erazo on 12-17-2024 WBC (Bld) [#/Vol] Leukocytes [#/volume ] in Blood by Automated count 3.8-11.6 [facility] Folate [Mass/volume] in Seru m or PlasmaOrdered By: Petra Holliday on 10-21-2024 Folate [Mass/Vol] Folate [Mass/volume] in Serum or Plasma >5.9 [facility] Comment on above: Folate reference ran ge: >5.9 ng/mlThe WHO technical consultation on folate and vitamin [id number] has determined that folate concentrations lessthan 4 ng/ml are considered deficient. Vit. B12/Folate Profileon Cobalamin (Vitamin B12) [Mass/Vol] 261 pg/mL Normal 180-914 [facility] Comment on above: Performed By: #### K APPA, SULAIMAN SERUM, SPE #### [facility] , #### CMP #### [address] Folate 10.6 ng/mL Normal >5.9 [facility] Comment on above: Result Comment: Padmini te reference range: >5.9 ng/ml The WHO technical consultation on folate and vitamin b12 deficiencies has determined that folate concentrations less than 4 ng/ml are considered deficient. PERFORMED BY: [place] [address] PATHOLOGIST DIRECTOR BUSINESS TRAVEL KATELYNN HAMILTON M.D. Performed By: #### K APPA, SULAIMAN SERUM, SPE #### [facility] , #### CMP #### [address] Vitamin B12 ser/plasOrdered By: Petra oHlliday on 10-21-2024 Cobalamin (Vitamin B12) [Mass/Vol] Vitamin B12 ser/plas 180-914 [facility] Folate [Mass/volume] in Seru m or PlasmaOrdered By: Petra Holliday on 07-24-2024 Folate [Mass/Vol] Folate [Mass/volume] in Serum or Plasma >5.9 [facility] Comment on above: Folate reference ran ge: >5.9 ng/mlThe WHO technical consultation on folate and vitamin [id number] has determined that folate concentrations lessthan 4 ng/ml are considered deficient. No Panel InformationOrdered By: Petra Holliday on 07-24-2024 Protein Electrophoresis M-Hernando Not observed g/dL Not Observed [facility] Protein Electrophoresis Note Comment . [facility] Comment on above: Protein electrophore sis scan will follow via computer,mail, or transfusion aide delivery.Performed at: - [facility] [id number] Director: Raghav Murphy PhD, Phone: [phone] Protein Electrophoresis, Ser umon 07-24-2024 Albumin [Mass/Vol] 3.0 g/dL Normal 2.9-4.4 [facility] Comment on above: Performed By: #### K APPA, SULAIMAN SERUM, SPE #### [facility] , #### CMP #### [facility] [address] [place] [address] Albumin/Globulin [Mass ratio] 0.6 {ratio} Low 0.7-1.7 [facility] Comment on above: Performed By: #### K APPA, SULAIMAN SERUM, SPE #### [facility] , #### CMP #### [facility] [address] [place] [address] [place] Vxqlx-1-Dspxaovf 0.3 g/dL Normal 0.0-0.4 [facility] Comment on above: Performed By: #### K APPA, SULAIMAN SERUM, SPE #### [facility] , #### CMP #### [facility] [address] [place] [address] [place] Ihcbs-2-Hpgecmbq 1.0 g/dL Normal 0.4-1.0 [facility] Comment on above: Performed By: #### K APPA, SULAIMAN SERUM, SPE #### [facility] , #### CMP #### [facility] [address] [place] [address] [place] Beta Globulin 1.0 g/dL Normal 0.7-1.3 [facility] Comment on above: Performed By: #### K APPA, SULAIMAN SERUM, SPE #### [facility] , #### CMP #### [facility] [address] [place] [address] [place] Gamma Globulin 2.6 g/dL High 0.4-1.8 [facility] Comment on above: Performed By: #### K APPA, SULAIMAN SERUM, SPE #### [facility] , #### CMP #### [facility] [address] [place] [address] [place] Globulin (S) [Mass/Vol] 4.8 g/dL High 2.2-3.9 [facility] Comment on above: Performed By: #### K APPA, SULAIMAN SERUM, SPE #### [facility] , #### CMP #### [facility] [address] [place] [address] M-Hernando Not Observed Normal Not Observed [facility] Comment on above: Performed By: #### K APPA, SULAIMAN SERUM, SPE #### [facility] , #### CMP #### [address] Protein [Mass/Vol] 7.8 g/dL Normal 6.0-8.5 [facility] Comment on above: Performed By: #### K APPA, SULAIMAN SERUM, SPE #### [facility] , #### CMP #### [address] SPE-Note Comment Normal . [facility] Comment on above: Result Comment: Prot ein electrophoresis scan will follow via computer, mail, or transfusion aide delivery. Performed at: [facility] [id number] Golf Ball Inspector: Raghav Murphy PhD, Phone: [phone] PERFORMED BY: [place] [address] PATHOLOGIST DIRECTOR BUSINESS TRAVEL KATELYNN HAMILTON M.D. Performed By: #### K APPA, SULAIMAN SERUM, SPE #### [facility] , #### CMP #### [address] Serum globulin measurement ( mass/volume)Ordered By: Petra Holliday on 07-24-2024 Globulin (S) [Mass/Vol] Serum globulin measurement (mass/volume) High 2.2-3.9 [facility] Serum or plasma albumin demian urement (mass/volume)Ordered By: Petra Holliday on 07-24-2024 Albumin [Mass/Vol] Albumin [Mass/volume ] in Serum or Plasma 2.9-4.4 [facility] Serum or plasma albumin/glob ulin mass ratioOrdered By: Petra Holliday on 07-24-2024 Albumin/Globulin [Mass ratio] Serum or plasma albumin/globulin mass ratio Low 0.7-1.7 [facility] Serum or plasma alpha 1 glob ulin measurement by electrophoresis (mass/volume)Ordered By: Petra Holliday on 07-24-2024 Alpha 1 globulin Elph [Mass/Vol] Serum or plasma alpha 1 globulin measurement by electrophoresis (mass/volume) 0.0-0.4 [facility] Serum or plasma alpha 2 glob ulin measurement by electrophoresis (mass/volume)Ordered By: Petra Holliday on 07-24-2024 Alpha 2 globulin Elph [Mass/Vol] Serum or plasma alpha 2 globulin measurement by electrophoresis (mass/volume) 0.4-1.0 [facility] Serum or plasma beta globuli n measurement by electrophoresis (mass/volume)Ordered By: Petra Holliday on 07-24-2024 Beta globulin Elph [Mass/Vol] Serum or plasma beta globulin measurement by electrophoresis (mass/volume) 0.7-1.3 [facility] Serum or plasma gamma globul in measurement by electrophoresis (mass/volume)Ordered By: Petra Holliday on 07-24-2024 Gamma globulin Elph [Mass/Vol] Serum or plasma gamma globulin measurement by electrophoresis (mass/volume) High 0.4-1.8 [facility] Serum total protein measurem entOrdered By: Petra Holliday on 07-24-2024 Protein [Mass/Vol] Protein [Mass/volume ] in Serum or Plasma 6.0-8.5 [facility] Vit. B12/Folate Profileon Cobalamin (Vitamin B12) [Mass/Vol] 152 pg/mL Low 180-914 [facility] Comment on above: Performed By: #### K APPA, SULAIMAN SERUM, SPE #### [facility] , #### CMP #### [address] Folate 13.6 ng/mL Normal >5.9 [facility] Comment on above: Result Comment: Padmini te reference range: >5.9 ng/ml The WHO technical consultation on folate and vitamin b12 deficiencies has determined that folate concentrations less than 4 ng/ml are considered deficient. PERFORMED BY: [facility] [address] [id number] PATHOLOGIST DIRECTOR BUSINESS TRAVEL KATELYNN HAMILTON M.D. Performed By: #### K GARRYA, SULAIMAN SERUM, SPE #### [facility] , #### CMP #### [facility] [address] Vitamin B12 ser/plasOrdered By: Petra Holliday on 07-24-2024 Cobalamin (Vitamin B12) [Mass/Vol] Vitamin B12 ser/plas Low 180-914 [facility] Blood thiamine measurement ( moles/volume)Ordered By: Petra Holliday on 07-22-2024 Thiamine (Bld) [Moles/Vol] Blood thiamine measurement (moles/volume) 66.5-200.0 [facility] Comment on above: This test was develo ped and its performance characteristicsdetermined by [facility]. It has not been cleared orapproved by the Food and Drug Administration.Performed at: [address] [id number] Director: Heladio King MD, Phone: [phone] Folate [Mass/volume] in Seru m or PlasmaOrdered By: Petra Holliday on 07-22-2024 Folate [Mass/Vol] Folate [Mass/volume] in Serum or Plasma >5.9 [facility] Comment on above: Specimen hemolyzed, redraw requestedFolate reference range: >5.9 ng/mlThe WHO technical consultation on folate and vitamin [id number] has determined that folate concentrations lessthan 4 ng/ml are considered deficient. No Panel InformationOrdered By: Petra Holliday on 07-22-2024 Protein Electrophoresis M-Hernando Not observed g/dL Not Observed [facility] Protein Electrophoresis Note Comment . [facility] Comment on above: Protein electrophore sis scan will follow via computer,mail, or transfusion aide delivery.Performed at: [address] [id number] Director: Raghav Murphy PhD, Phone: [phone] Protein Electrophoresis, Ser umon 07-22-2024 Albumin [Mass/Vol] 3.3 g/dL Normal 2.9-4.4 [facility] Comment on above: Performed By: #### K APPA, SULAIMAN SERUM, SPE #### [facility] , #### CMP #### [facility] [address] [place] [address] Albumin/Globulin [Mass ratio] 0.7 {ratio} Normal 0.7-1.7 [facility] Comment on above: Performed By: #### K APPA, SULAIMAN SERUM, SPE #### [facility] , #### CMP #### [facility] [address] [place] [address] [place] Mvxzz-6-Hszfvszv 0.3 g/dL Normal 0.0-0.4 [facility] Comment on above: Performed By: #### K APPA, SULAIMAN SERUM, SPE #### [facility] , #### CMP #### [facility] [address] [place] [address] [place] Xcpea-2-Wzfpgcea 1.2 g/dL High 0.4-1.0 [facility] Comment on above: Performed By: #### K APPA, SULAIMAN SERUM, SPE #### [facility] , #### CMP #### [facility] [address] [place] [address] [place] Beta Globulin 1.2 g/dL Normal 0.7-1.3 [facility] Comment on above: Performed By: #### K APPA, SULAIMAN SERUM, SPE #### [facility] , #### CMP #### [facility] [address] [place] [address] [place] Gamma Globulin 1.8 g/dL Normal 0.4-1.[address] [facility] Comment on above: Performed By: #### K APPA, SULAIMAN SERUM, SPE #### [facility] , #### CMP #### [facility] [address] [place] [address] [place] Globulin (S) [Mass/Vol] 4.5 g/dL High 2.2-3.9 [facility] Comment on above: Performed By: #### K APPA, SULAIMAN SERUM, SPE #### [facility] , #### CMP #### [address] M-Hernando Not Observed Normal Not Observed [facility] Comment on above: Performed By: #### K APPA, SULAIMAN SERUM, SPE #### [facility] , #### CMP #### [address] Protein [Mass/Vol] 7.8 g/dL Normal 6.0-8.5 [facility] Comment on above: Performed By: #### K APPA, SULAIMAN SERUM, SPE #### [facility] , #### CMP #### [facility] [address] [place] [address] SPE-Note Comment Normal . [facility] Comment on above: Result Comment: Prot ein electrophoresis scan will follow via computer, mail, or transfusion aide delivery. Performed at: [facility] [employer] [id number] Golf Ball Inspector: Raghav Murphy PhD, Phone: [phone] PERFORMED BY: [place] [address] PATHOLOGIST DIRECTOR BUSINESS TRAVEL KATELYNN HAMILTON M.D. Performed By: #### K APPA, SULAIMAN SERUM, SPE #### [facility] , #### CMP #### [address] Protein [Mass/volume] in Uri neOrdered By: Petra Holliday on 07-22-2024 Protein (U) [Mass/Vol] Protein [Mass/vol ume] in Urine High 0-9 [facility] Serum globulin measurement ( mass/volume)Ordered By: Petra Holliday on 07-22-2024 Globulin (S) [Mass/Vol] Serum globulin measurement (mass/volume) High 2.2-3.9 [facility] Serum or plasma albumin demian urement (mass/volume)Ordered By: Petra Holliday on 07-22-2024 Albumin [Mass/Vol] Albumin [Mass/volume ] in Serum or Plasma 2.9-4.4 [facility] Serum or plasma albumin/glob ulin mass ratioOrdered By: Petra Holliday on 07-22-2024 Albumin/Globulin [Mass ratio] Serum or plasma albumin/globulin mass ratio 0.7-1.7 [facility] Serum or plasma alpha 1 glob ulin measurement by electrophoresis (mass/volume)Ordered By: Ptera Holliday on 07-22-2024 Alpha 1 globulin Elph [Mass/Vol] Serum or plasma alpha 1 globulin measurement by electrophoresis (mass/volume) 0.0-0.4 [facility] Serum or plasma alpha 2 glob ulin measurement by electrophoresis (mass/volume)Ordered By: Petra Holliday on 07-22-2024 Alpha 2 globulin Elph [Mass/Vol] Serum or plasma alpha 2 globulin measurement by electrophoresis (mass/volume) High 0.4-1.0 [facility] Serum or plasma beta globuli n measurement by electrophoresis (mass/volume)Ordered By: Petra Holliday on 07-22-2024 Beta globulin Elph [Mass/Vol] Serum or plasma beta globulin measurement by electrophoresis (mass/volume) 0.7-1.3 [facility] Serum or plasma gamma globul in measurement by electrophoresis (mass/volume)Ordered By: Petra Holliday on 07-22-2024 Gamma globulin Elph [Mass/Vol] Serum or plasma gamma globulin measurement by electrophoresis (mass/volume) 0.4-1.8 [facility] Serum total protein measurem entOrdered By: Petra Holliday on 07-22-2024 Protein [Mass/Vol] Protein [Mass/volume ] in Serum or Plasma 6.0-8.5 [facility] Total Protein, Urineon 07-22 Protein (U) [Mass/Vol] 37 mg/dL High 0-9 [facility] Comment on above: Result Comment: PERF ORMED BY: [place] [address] PATHOLOGIST DIRECTOR BUSINESS TRAVEL KATELYNN HAMILTON M.D. Performed By: #### K APPA, SULAIMAN SERUM, SPE #### [facility] , #### CMP #### [address] Vit. B12/Folate Profileon Folate Normal >5.9 [facility] Comment on above: Result Comment: Spec imen hemolyzed, redraw requested Folate reference range: >5.9 ng/ml The WHO technical consultation on folate and vitamin b12 deficiencies has determined that folate concentrations less than 4 ng/ml are considered deficient. PERFORMED BY: [place] [address] PATHOLOGIST DIRECTOR BUSINESS TRAVEL KATELYNN HAMILTON M.D. Performed By: #### K APPA, SULAIMAN SERUM, SPE #### [facility] , #### CMP #### [address] Vitamin B12 Normal 180-914 [facility] Comment on above: Result Comment: Spec imen hemolyzed, redraw requested Performed By: #### K APPA, SULAIMAN SERUM, SPE #### [facility] , #### CMP #### [address] Vitamin B1 (Thiamine) Bloodo n 07-22-2024 Vitamin B1 (Thiamine) Blood 135.7 Normal 66.5-200.0 [facility] Comment on above: Result Comment: This test was developed and its performance characteristics determined by [employer] It has not been cleared or approved by the Food and Drug Administration. Performed at: [address] [id number] Golf Ball Inspector: Heladio King MD, Phone: [phone] PERFORMED BY: [place] [id number] PATHOLOGIST DIRECTOR BUSINESS TRAVEL KATELYNN HAMILTON M.D. Performed By: #### K APPA, SULAIMAN SERUM, SPE #### [facility] , #### CMP #### [address] Vitamin B12 ser/plasOrdered By: Petra Holliday on 07-22-2024 Cobalamin (Vitamin B12) [Mass/Vol] Vitamin B12 ser/plas 180-914 [facility] Comment on above: Specimen hemolyzed, redraw requested Creatinine [Mass/volume] in UrineOrdered By: Lety Flynn on 03-03-2024 Creatinine (U) [Mass/Vol] 110.00 mg/dL [facility] Comment on above: No reference range e stablished MicroAlb Creat Ratio,Uon Creatinine, Urine (Random) 110.00 mg/dL Normal [facility] Comment on above: Result Comment: No r eference range established Performed By: #### K APPA, SULAIMAN SERUM, SPE #### [facility] , #### CMP #### [address] Microalbumin/Creatinine Ratio 14.5 mg/g Normal 0.0-30.0 [facility] Comment on above: Result Comment: 30-3 00 mg/g indicates an increased risk for diabetic nephropathy. Greater than 300 mg/g is consistent with clinical nephropathy. (Am. J. Kidney Disease 1994, 25:107) PERFORMED BY: [place] [address] PATHOLOGIST DIRECTOR BUSINESS TRAVEL NORIS VALDES M.D. Performed By: #### K APPA, SULAIMAN SERUM, SPE #### [facility] , #### CMP #### [place] [id number] [facility] Microalbumin [Mass/volume] i n UrineOrdered By: Lety Flynn on 03-03-2024 Albumin DL <= 20 mg/L (U) [Mass/Vol] 1.6 mg/dL Normal 0.0-1.8 [facility] Comment on above: Performed By: #### K APPALTA ValentinE SERUM, SPE #### [facility] , #### CMP #### [facility] [address] Urine microalbumin/creatinin e mass ratioOrdered By: Lety Flynn on 03-03-2024 Albumin/Creatinine DL <= 20 mg/L (U) [Mass ratio] 14.5 mg/g 0.0-30.0 [facility] Comment on above: 30-300 mg/g indicate s an increased risk for diabetic nephropathy. Greater than 300 mg/g is consistent with clinical nephropathy. (Am. J. Kidney Disease 1995, 25:107) Alanine aminotransferase [En zymatic activity/volume] in Serum or PlasmaOrdered By: Lety Flynn on 02-27-2024 ALT [Catalytic activity/Vol] 12 U/L Normal 7-52 [facility] Comment on above: Performed By: #### F E PRO, CBC, TSH3, CMP, LIPID #### [facility] [address] [place] [address] [place] Albumin [Mass/volume] in Ser um or Plasma by Bromocresol green (BCG) dye binding methoOrdered By: Lety Flynn on 02-27-2024 Albumin BCG dye [Mass/Vol] 3.6 g/dL 3.5-5.7 [facility] Alkaline phosphatase [Enzyma tic activity/volume] in Serum or PlasmaOrdered By: Lety Flynn on 02-27-2024 ALP [Catalytic activity/Vol] 95 U/L Normal 34-104 [facility] Comment on above: Performed By: #### F E PRO, CBC, TSH3, CMP, LIPID #### [facility] [address] [place] [address] [place] Aspartate aminotransferase [ Enzymatic activity/volume] in Serum or PlasmaOrdered By: Lety Flynn on 02-27-2024 AST [Catalytic activity/Vol] 17 U/L Normal 13-39 [facility] Comment on above: Performed By: #### F E PRO, CBC, TSH3, CMP, LIPID #### [address] Automated basophil %Ordered By: Lety Flynn on 02-27-2024 Basophils/100 WBC (Bld) 0.6 % Normal . [facility] Comment on above: Performed By: #### F E PRO, CBC, TSH3, CMP, LIPID #### [address] Automated basophil countOrde red By: Lety Flynn on 02-27-2024 Basophils (Bld) [#/Vol] 0.1 10*3/uL Normal 0.0-0.2 [facility] Comment on above: Result Comment: PERF ORMED BY: [place] [address] PATHOLOGIST DIRECTOR BUSINESS TRAVEL NORIS VALDES M.D. Performed By: #### F E PRO, CBC, TSH3, CMP, LIPID #### [address] Automated blood monocyte cou ntOrdered By: Lety Flynn on 02-27-2024 Monocytes (Bld) [#/Vol] 0.7 10*3/uL Normal 0.0-0.8 [facility] Comment on above: Performed By: #### F E PRO, CBC, TSH3, CMP, LIPID #### [address] Automated eosinophil %Ordere d By: Lety Flynn on 02-27-2024 Eosinophils/100 WBC (Bld) 3.9 % Normal . [facility] Comment on above: Performed By: #### F E PRO, CBC, TSH3, CMP, LIPID #### [address] Automated eosinophil countOr dered By: Lety Flynn on 02-27-2024 Eosinophils (Bld) [#/Vol] 0.3 10*3/uL Normal 0.0-0.45 [facility] Comment on above: Performed By: #### F E PRO, CBC, TSH3, CMP, LIPID #### [facility] [address] Automated monocyte %Ordered By: Lety Flynn on 02-27-2024 Monocytes/100 WBC (Bld) 9.0 % Normal . [facility] Comment on above: Performed By: #### F E PRO, CBC, TSH3, CMP, LIPID #### [facility] [address] Automated neutrophil %Ordere d By: Lety Flynn on 02-27-2024 Neutrophils/100 WBC (Bld) 67.9 % Normal . [facility] Comment on above: Performed By: #### F E PRO, CBC, TSH3, CMP, LIPID #### [address] Bilirubin.total [Mass/volume ] in Serum or PlasmaOrdered By: Lety Flynn on 02-27-2024 Bilirubin [Mass/Vol] 0.3 mg/dL Normal 0.3-1.0 [facility] Comment on above: Performed By: #### F E PRO, CBC, TSH3, CMP, LIPID #### [place] [address] [place] Calcium [Mass/volume] in Ser um or PlasmaOrdered By: Lety Flynn on 02-27-2024 Calcium [Mass/Vol] 9.2 mg/dL Normal 8.6-10.3 [facility] Comment on above: Performed By: #### F E PRO, CBC, TSH3, CMP, LIPID #### [place] [address] [place] Carbon dioxide, total [Moles /volume] in Serum or PlasmaOrdered By: Lety Flynn on 02-27-2024 CO2 [Moles/Vol] 28.4 mmol/L Normal 21.0-31.0 [facility] Comment on above: Performed By: #### F E PRO, CBC, TSH3, CMP, LIPID #### [place] [address] [place] Chloride [Moles/volume] in S asiya or PlasmaOrdered By: Lety Flynn on 02-27-2024 Chloride [Moles/Vol] 105 mmol/L Normal 98-107 [facility] Comment on above: Performed By: #### F E PRO, CBC, TSH3, CMP, LIPID #### [facility] [address] Cholesterol [Mass/volume] in Serum or PlasmaOrdered By: Lety Flynn on 02-27-2024 Cholesterol [Mass/Vol] 138 mg/dL Low 140-200 [facility] Comment on above: Chol less than 200 m g/dl low riskChol 201-239 mg/dl borderline riskChol 240 mg/dl and greater high risk Result Comment: Chol less than 200 mg/dl low risk Chol 201-239 mg/dl borderline risk Chol 240 mg/dl and greater high risk Performed By: #### F E PRO, CBC, TSH3, CMP, LIPID #### [facility] [address] Cholesterol in LDL Calc [Mas s/Vol]Ordered By: Lety Flynn on 02-27-2024 Cholesterol in LDL [Mass/Vol] 70 mg/dL 0-100 [facility] Comment on above: LDL ATP III CLASSIFI CATIONLDL less than 100 mg/dL OptimalLDL 100-129 mg/dL Near or above optimalLDL 130-159 mg/dL Borderline highLDL 160-189 mg/dL HighLDL greater than 189 mg/dL Very high Cholesterol in VLDL Calc [Ma ss/Vol]Ordered By: Lety Flynn on 02-27-2024 Cholesterol in VLDL [Mass/Vol] 12 mg/dL [facility] Complete Blood Count Auto Di ffon 02-27-2024 Mean Corpuscular HGB Conc 32.9 g/dL Normal 32.0-35.0 [facility] Comment on above: Performed By: #### F E PRO, CBC, TSH3, CMP, LIPID #### [facility] [address] NRBC% 0.1 /100{WBC} Normal 0-0.5 [facility] Comment on above: Performed By: #### F E PRO, CBC, TSH3, CMP, LIPID #### [facility] [address] Comprehensive Metabolic Pane norma 02-27-2024 Albumin [Mass/Vol] 3.6 g/dL Normal 3.5-5.7 [facility] Comment on above: Performed By: #### F E PRO, CBC, TSH3, CMP, LIPID #### [address] GFR/1.73 sq M.predicted MDRD (S/P/Bld) [Vol rate/Area] mL/min/{1.73_m2} Normal [facility] Comment on above: Performed By: #### F E PRO, CBC, TSH3, CMP, LIPID #### [address] Creatinine [Mass/volume] in Serum or PlasmaOrdered By: Lety Flynn on 02-27-2024 Creatinine [Mass/Vol] 0.68 mg/dL Normal 0.60-1.20 [facility] Comment on above: Performed By: #### F E PRO, CBC, TSH3, CMP, LIPID #### [address] Erythrocyte distribution wid th [Ratio] by Automated countOrdered By: Lety Flynn on 02-27-2024 Erythrocyte distribution width (RBC) [Ratio] 14.4 % Normal 11.9-15.3 [facility] Comment on above: Performed By: #### F E PRO, CBC, TSH3, CMP, LIPID #### [address] Erythrocytes [#/volume] in B lood by Automated countOrdered By: Lety Flynn on 02-27-2024 RBC (Bld) [#/Vol] 4.54 10*6/uL Normal 3.60-5.00 [facility] Comment on above: Performed By: #### F E PRO, CBC, TSH3, CMP, LIPID #### [address] FE PROon 02-27-2024 % Iron Saturation 22.6 % Normal 20-50 [facility] Comment on above: Performed By: #### F E PRO, CBC, TSH3, CMP, LIPID #### [facility] [address] Total Iron Binding Capacity 288 ug/dL Normal 255-450 [facility] Comment on above: Performed By: #### F E PRO, CBC, TSH3, CMP, LIPID #### [facility] [address] [place] [address] [place] Ferritin [Mass/volume] in Se rum or PlasmaOrdered By: Lety Flynn on 02-27-2024 Ferritin [Mass/Vol] 178.2 ng/mL Normal 11.0-306.8 [facility] Comment on above: Performed By: #### F E PRO, CBC, TSH3, CMP, LIPID #### [facility] [address] [place] [id number] [place] Glucose [Mass/volume] in Ser um or PlasmaOrdered By: Lety Flynn on 02-27-2024 Glucose [Mass/Vol] 86 mg/dL Normal 70-100 [facility] Comment on above: ADA recommended refe rence rangeRandom Glucose Reference Range is dependent on time and content of last meal. Glucose of more than 200 mg/dL in a nonstressed, ambulatory subject supports the diagnosis of Diabetes Mellitus. Result Comment: [place] om Glucose Reference Range is dependent on time and content of last meal. Glucose of more than 200 mg/dL in a nonstressed, ambulatory subject supports the diagnosis of Diabetes Mellitus. ADA recommended reference range Performed By: #### F E PRO, CBC, TSH3, CMP, LIPID #### [facility] [address] [place] [id number] [place] HbA1c HPLC (Bld) [Mass fract ion]on 02-27-2024 HbA1c (Bld) [Mass fraction] 5.6 % [facility] Hematocrit [Volume Fraction] of Blood by Automated countOrdered By: Lety Flynn on 02-27-2024 Hematocrit (Bld) [Volume fraction] 39.4 % Normal 34.0-46.4 [facility] Comment on above: Performed By: #### F E PRO, CBC, TSH3, CMP, LIPID #### [facility] [address] Hemoglobin [Mass/volume] in BloodOrdered By: Lety Flynn on 02-27-2024 Hemoglobin (Bld) [Mass/Vol] 12.9 g/dL Normal 11.8-15.4 [facility] Comment on above: Performed By: #### F E PRO, CBC, TSH3, CMP, LIPID #### [facility] [address] Iron [Mass/volume] in Serum or PlasmaOrdered By: Lety Flynn on 02-27-2024 Iron [Mass/Vol] 65 ug/dL Normal 50-212 [facility] Comment on above: Performed By: #### F E PRO, CBC, TSH3, CMP, LIPID #### [address] Iron binding capacity [Mass/ volume] in Serum or PlasmaOrdered By: Lety Flynn on 02-27-2024 Iron binding capacity [Mass/Vol] 288 ug/dL 255-450 [facility] Iron saturation [Mass Fracti on] in Serum or PlasmaOrdered By: Lety Flynn on 02-27-2024 Iron saturation [Mass fraction] 22.6 % 20-50 [facility] Leukocytes [#/volume] correc tiffanie for nucleated erythrocytes in Blood by Automated counOrdered By: Lety Flynn on 02-27-2024 WBC corrected for nucl RBC Auto (Bld) [#/Vol] 7.8 10*3/uL 3.8-11.6 [facility] Leukocytes [#/volume] in Blo od by Automated countOrdered By: Lety Flynn on 02-27-2024 WBC (Bld) [#/Vol] 7.8 10*3/uL Normal 3.8-11.6 [facility] Comment on above: Performed By: #### F E PRO, CBC, TSH3, CMP, LIPID #### [facility] [address] [place] [address] Lipid Panelon 07-25-2024 LDL Cholesterol,Calculated 70 mg/dL Normal 0-100 [facility] Comment on above: Result Comment: LDL ATP III CLASSIFICATION LDL less than 100 mg/dL Optimal LDL 100-129 mg/dL Near or above optimal LDL 130-159 mg/dL Borderline high LDL 160-189 mg/dL High LDL greater than 189 mg/dL Very high Performed By: #### F E PRO, CBC, TSH3, CMP, LIPID #### [facility] [address] Triglyceride w/Reflex 63 mg/dL Normal 0-149 [facility] Comment on above: Result Comment: TRIG ATP III CLASSIFICATION TRIG less than 150 mg/dL Normal TRIG 150-199 mg/dL Borderline high TRIG 200-500 mg/dL High TRIG greater than 500 mg/dL Very high Standard traceable to the Center for Disease Conrtrol and Prevention (CDC) test method. Performed By: #### F E PRO, CBC, TSH3, CMP, LIPID #### [facility] [address] VLDL CHOLESTEROL 12 mg/dL Normal [facility] Comment on above: Performed By: #### F E PRO, CBC, TSH3, CMP, LIPID #### [facility] [address] [place] [address] [place] Lymphocytes [#/volume] in Bl ood by Automated countOrdered By: Lety Flynn on 02-27-2024 Lymphocytes (Bld) [#/Vol] 1.5 10*3/uL Normal 1.00-4.8 [facility] Comment on above: Performed By: #### F E PRO, CBC, TSH3, CMP, LIPID #### [facility] [address] [place] [address] [place] Lymphocytes/100 leukocytes i n Blood by Automated countOrdered By: Lety Flynn on 02-27-2024 Lymphocytes/100 WBC (Bld) 18.6 % Normal . [facility] Comment on above: Performed By: #### F E PRO, CBC, TSH3, CMP, LIPID #### [facility] [address] [place] [address] [place] MCH [Entitic mass] by Automa tiffanie countOrdered By: Lety Flynn on 02-27-2024 MCH (RBC) [Entitic mass] 28.5 pg Normal 24.7-34.3 [facility] Comment on above: Performed By: #### F E PRO, CBC, TSH3, CMP, LIPID #### [address] MCHC Auto (RBC) [Mass/Vol]Or dered By: Lety Flynn on 02-27-2024 MCHC (RBC) [Mass/Vol] 32.9 g/dL 32.0-35.0 [facility] MCV [Entitic volume] by Auto mated countOrdered By: Lety Flynn on 02-27-2024 MCV (RBC) [Entitic vol] 86.7 fL Normal 80-100 [facility] Comment on above: Performed By: #### F E PRO, CBC, TSH3, CMP, LIPID #### [facility] [address] [place] [address] Neutrophils [#/volume] in Bl ood by Automated countOrdered By: Lety Flynn on 02-27-2024 Neutrophils (Bld) [#/Vol] 5.3 10*3/uL Normal 1.8-7.7 [facility] Comment on above: Performed By: #### F E PRO, CBC, TSH3, CMP, LIPID #### [address] No Panel InformationOrdered By: Lety Flynn on 02-27-2024 Estimated GFR (CKD-EPI) > 60.0 mL/Min [facility] Creatinine Clearance (Chem N/A [facility] Nucleated erythrocytes [Pres ence] in Blood by Automated countOrdered By: Lety Flynn on 02-27-2024 Nucleated RBC Auto Ql (Bld) 0.1 /100{WBC} 0-0.5 [facility] Platelet mean volume [Entiti c volume] in Blood by Automated countOrdered By: Lety Flynn on 02-27-2024 Platelet mean volume (Bld) [Entitic vol] 7.6 fL Normal 6.3-10.7 [facility] Comment on above: Performed By: #### F E PRO, CBC, TSH3, CMP, LIPID #### [address] Platelets [#/volume] in Bloo d by Automated countOrdered By: Lety Flynn on 02-27-2024 Platelets (Bld) [#/Vol] 335 10*3/uL Normal 150-450 [facility] Comment on above: Performed By: #### F E PRO, CBC, TSH3, CMP, LIPID #### [address] Potassium [Moles/volume] in Serum or PlasmaOrdered By: Lety Flynn on 02-27-2024 Potassium [Moles/Vol] 4.2 mmol/L Normal 3.5-5.1 [facility] Comment on above: Performed By: #### F E PRO, CBC, TSH3, CMP, LIPID #### [address] Protein [Mass/volume] in Ser um or PlasmaOrdered By: Lety Flynn on 02-27-2024 Protein [Mass/Vol] 8.0 g/dL Normal 6.4-8.9 [facility] Comment on above: Performed By: #### F E PRO, CBC, TSH3, CMP, LIPID #### [address] Serum globulin measurement b y calculation (mass/volume)Ordered By: Lety Flynn on 02-27-2024 Globulin (S) [Mass/Vol] 4.4 g/dL Normal [facility] Comment on above: Performed By: #### F E PRO, CBC, TSH3, CMP, LIPID #### [address] Serum or plasma albumin/glob ulin mass ratioOrdered By: Lety Flynn on 02-27-2024 Albumin/Globulin [Mass ratio] 0.8 {ratio} [facility] Comment on above: Performed By: #### F E PRO, CBC, TSH3, CMP, LIPID #### [address] [place] [address] [place] Serum or plasma anion gap de terminationOrdered By: Lety Flynn on 02-27-2024 Anion gap [Moles/Vol] 8.8 mmol/L Normal 6.0-15.0 [facility] Comment on above: Performed By: #### F E PRO, CBC, TSH3, CMP, LIPID #### [facility] [address] [place] [address] Serum or plasma high density lipoprotein (HDL) cholesterol measurementOrdered By: Lety Flynn on 02-27-2024 Cholesterol in HDL [Mass/Vol] 55 mg/dL Normal 23-92 [facility] Comment on above: HDL CHOL ATP-III CLA SSIFICATION Cardiovascular RiskHDL > or equal to 60 mg/dL LOWHDL < 40 mg/dL HIGH Result Comment: HDL CHOL ATP-III CLASSIFICATION Cardiovascular Risk HDL > or equal to 60 mg/dL LOW HDL < 40 mg/dL HIGH Performed By: #### F E PRO, CBC, TSH3, CMP, LIPID #### [address] Serum or plasma total choles terol/high density lipoprotein (HDL) cholesterol mass ratOrdered By: Lety Flynn on 02-27-2024 Cholesterol.total/Kiki sterol in HDL [Mass ratio] 2.5 {ratio} Normal <5.0 [facility] Comment on above: Performed By: #### F E PRO, CBC, TSH3, CMP, LIPID #### [facility] [address] [place] [address] Sodium [Moles/volume] in Ser um or PlasmaOrdered By: Lety Flynn on 02-27-2024 Sodium [Moles/Vol] 138 mmol/L Normal 136-145 [facility] Comment on above: Performed By: #### F E PRO, CBC, TSH3, CMP, LIPID #### [address] Thyrotropin [Units/volume] i n Serum or PlasmaOrdered By: Lety Flynn on 02-27-2024 TSH Qn 3.83 m[IU]/L Normal 0.45-5.33 [facility] Comment on above: Result Comment: PERF ORMED BY: [place] [address] PATHOLOGIST DIRECTOR BUSINESS TRAVEL NORIS VALDES M.D. Performed By: #### F E PRO, CBC, TSH3, CMP, LIPID #### [facility] [address] Transferrin [Mass/volume] in Serum or PlasmaOrdered By: Lety Flynn on 02-27-2024 Transferrin [Mass/Vol] 206 mg/dL Normal 203-362 [facility] Comment on above: Performed By: #### F E PRO, CBC, TSH3, CMP, LIPID #### [address] Triglyceride [Mass/volume] i n Serum or PlasmaOrdered By: Lety Flynn on 02-27-2024 Triglyceride [Mass/Vol] 63 mg/dL 0-149 [facility] Comment on above: TRIG ATP III CLASSIF ICATIONTRIG less than 150 mg/dL NormalTRIG 150-199 mg/dL Borderline highTRIG 200-500 mg/dL High TRIG greater than 500 mg/dL Very highStandard traceable to the Center for Disease Conrtrol and Prevention (CDC) test method. Urea nitrogen [Mass/volume] in Serum or PlasmaOrdered By: Lety Flynn on 02-27-2024 Urea nitrogen [Mass/Vol] 18 mg/dL Normal 7-25 [facility] Comment on above: Performed By: #### F E PRO, CBC, TSH3, CMP, LIPID #### [address] C Urineon 02-20-2024 Bacteria identified Cx [...] Locations R1: This test was performed at: [facility], [address] [place] [address], [id number] , [place], Normal [facility] Comment on above: Performed By: #### 2 [id number] #### [facility] [address] [place] [id number] Ambulatory Visit Summaryon 0 02-18-2024 Ambulatory Visit [...] choosing us for your care. Normal [facility] Urology Office/Clinic Noteon 02-18-2024 Urology Office/Clinic Note [...] with voice recognition artificial intelligence software, specifically [employer] and or [employer]. Substitutions may have occurred due to the [...] pt 1. Gross hematuria (R31.0: Gross hematuria) [facility] ER visit on 04/12/23. Has had increased confusion and SOB for about a month, dx w/ pulmonary embolism at [facility] and was prescribed Eliquis a month ago. Complications began after a fall that caused a head fracture and pelvic and R hip fractures. Went to see PCP Lety Flynn prior to presentation to [facility] ER on 04/12/23 for hematuria that was visible by pt the past 3 days, given cefdinir 300mg bid per PCP. UA 04/12/23 showed 3+ blood. UCx 04/12/23 - neg, tx'd empirically. Saw PCP again 05/01/23 for f/u to ER visit. UA at that time showed 20-49 RBCs and innumerable WBCs. UCx 05/01/23 - neg. [1] CT AP wo/w con done 05/15/23 at [facility] showed a 3mm nonobstructing R renal stone, abnormal bladder wall thickening and inflammatory changes suggestive of cystitis. [2] s/p cysto/UD 06/11/23 -tight urethra, dilated to 30 [place] with sounds. Abnormal bladder, poor visibility due [...] Urnls Dip Stick Auto w/o Microscopy POC [id number] 4. Kidney stone (N20.0: Calculus of kidney) CT AP wo/w con done 05/15/23 at [facility] showed a 3mm nonobstructing R renal stone, [...] BID, # 30 caplet(s), Refills(s) 0, Pharmacy: [facility]/pharmacy #[id number], 161, cm, 09/17/23 12:54:00 EST, Height/Length Dosing, 56, kg, 09/17/23 12:54:00 EST, Weight Dosing Follow-up No qualifying data available Patient Education (more content not included)... Normal [facility] Comment on above: Result Comment: Elec tronically Signed By: CARLOS A Ellison APRN, Cinthya Mendez\.br\Date and Time Signed: 02/18/24 12:05 EDT Consent for Procedure/Surger yon 09-17-2023 Consent for Procedure/Surgery [id number] FF Normal [facility] Consent for Treatmenton 09-05 Consent for Treatment [id number]#[id number] F [facility] IntraOperative Documentson 0 09-17-2023 IntraOperative Documents [id number] FF [facility] Main OR Intraoperative Recor don 09-17-2023 Main OR Intraoperative Record IntraOp Document Type FTURO Summary Primary Physician: Garcia TURNER MD Finalized Date/Time: 09/17/23 13:27:24 Pt. Name: KEVINJOSE/Sex: 1945 Female Med Rec #: [id number] Physician: Garcia TURNER MD Financial #: [id number] Pt. Type: O Room/Bed: / Admit/Disch: 09/17/23 [...] Raya Delgado Role Performed Surgeon - Primary Sweet Dough Mixer - Primary Scrub - Primary Time In [...] DIXON Garcia RN, Ruthann 09/17/23 13:27 Normal [facility] Main OR Preoperative Recordo n 09-17-2023 Main OR Preoperative Record Holding Area Document Type FTURO Summary Primary Physician: Garcia TURNER MD Finalized Date/Time: 09/17/23 13:12:13 Pt. Name: JOSE KIM/Sex: 1945 Female Med Rec #: [id number] Physician: Garcia TURNER MD Financial #: [id number] Pt. Type: O Room/Bed: / Admit/Disch: 09/17/23 [...] right arm doesn't work Skin Integrity Intact, [place], Warm, & Dry Vitals - EU Blood Pressure 133/85 Pulse 62 bpm Respirations 18 br/min SPO2 100 % RN Reviewed Yes Last Modified By: DIXON Garcia RN, Ruthann 09/17/23 13:12:11 Finalized By: DIXON Garcia RN, Ruthann Document Signatures Signed By: John GALLARDO Anushka D 09/17/23 13:00 DIXON Garcia RN, Ruthann 09/17/23 13:12 Normal [facility] Operative Reporton Operative Report Patient: EVAN KIM [...] Follow-up will be in 3 months.. Normal [facility] Comment on above: Result Comment: Elec tronically [...] test was performed at: [facility], [address] [place] [address], [id number] , , [facility] Comment on above: Performed By: #### 2 [id number] ####[facility] [address] [place] [address] Consent for Procedure/Surger yon 06-11-2023 Consent for Procedure/Surgery [id number] F [facility] Consent for Treatmenton Consent for Treatment [id number]#[id number] F [facility] IntraOperative Documentson 1 08-11-2022 IntraOperative Documents [id number] F [facility] Main OR Intraoperative Recor don 06-11-2023 Main OR Intraoperative Record IntraOp Document Type FTURO Summary Primary Physician: Gracia TURNER MD Finalized Date/Time: 06/11/23 15:26:08 Pt. Name: JOSE KIM/Sex: 1945 Female Med Rec #: [id number] Physician: Garcia TURNER MD Financial #: [id number] Pt. Type: O Room/Bed: / Admit/Disch: 06/11/23 14:03:29 - Institution: Case Times FTURO Entry 1 Patient Times In Room 06/11/23 15:04:00 Out Room 06/11/23 15:21:00 Procedure Times Start 06/11/23 15:09:00 Stop 06/11/23 15:15:00 Anesthesia Times Last Modified By: Raya Zhou RN 06/11/23 15:21:35 Case Attendance FTURO Entry 1 Entry 2 Entry 3 Case Attendee YUE GILL, Garcia Martinez LEGAL SECRETARY, Raya Aguayo RN Role Performed Surgeon - Primary Scrub - Primary Sweet Dough Mixer - Primary Time In 06/11/23 15:04:00 06/11/23 [...] By: Raya Zhou RN 06/11/23 15:26 Normal [facility] Main OR Preoperative Recordo n 06-11-2023 Main OR Preoperative Record Holding Area Document Type FTURO Summary Primary Physician: Garcia TURNER MD Finalized Date/Time: 06/11/23 14:46:50 Pt. Name: JOSE KIM/Sex: 1945 Female Med Rec #: [id number] Physician: Garcia TURNER MD Financial #: [id number] Pt. Type: O Room/Bed: / Admit/Disch: 06/11/23 [...] non-operatable, and non healing Skin Integrity Intact, [place], Warm, & Dry Vitals - EU Blood Pressure 121/76 Pulse 116 bpm Respirations 24 br/min SPO2 94 % RN Reviewed Yes Last Modified By: Raya Zhou RN 06/11/23 14:46:48 General Comments: Temp 36.5 Finalized By: Raya Zhou RN Document Signatures Signed By: Ramona Priest LPN 06/11/23 14:40 Raya Zhou RN 06/11/23 14:46 Normal [facility] Operative Reporton 3 Operative Report Patient: EVAN [...] urine. The Urethra was dilated to: 30 Citizen Of [place] w/ sounds. Devices Implanted: None. Removal: Cystoscope is removed, The patient tolerated it well. Postoperative Information Discharge: Patient is discharged home with antibiotic coverage, Follow up arranged. She will take Macrobid for couple months and we will bring her back and repeat a cystoscopy.. Normal [facility] Comment on above: Result Comment: Elec tronically [...] Locations R1: This [facility] performed at: [facility], [address] [place] [address], [facility]- , , [facility] Comment on above: Performed By: #### 2 [id number] ####[id number] [place] [address] Physician Referralon 023 Physician Referral [id number] F [facility] Ambulatory Visit Summaryon 1 Ambulatory Visit Summary [...] GILL, Garcia Swift Where: [facility] Urology Office/Clinic Noteon 05-20-2023 Urology Office/Clinic Note Chief Complaint gross hematuria HPI Staff 78 yo female new pt, never seen in our office before, here for f/u to [facility] ER visit on 04/12/23. Has had increased confusion and SOB for about a month, dx w/ pulmonary embolism at [facility] and was prescribed Eliquis a month ago. Complications began after a fall that caused a head fracture and pelvic and R hip fractures. Went to see PCP Lety Flynn prior to presentation to [facility] ER on 04/12/23 for hematuria that was visible by pt the past 3 days, given cefdinir 300mg bid per PCP. UA 04/12/23 showed 3+ blood. UCx 04/12/23 - neg, tx'd empirically. CT AP wo con done 04/12/23 at [facility] showed gross distention of bladder with wall thickening and inflammatory changes suggestive of cystitis, associated R hydronephrosis and hydroureter. Saw PCP again 05/01/23 for f/u to ER visit. UA at that time showed 20-49 RBCs and innumerable WBCs. UCx 05/01/[address] - [address] CT AP wo/w con done 05/15/23 at [facility] showed a 3mm nonobstructing R renal stone, [...] Assessment/Plan 1. Gross hematuria (R31.0: Gross hematuria) [facility] ER visit on 04/12/23. Has had increased confusion and SOB for about a month, dx w/ pulmonary embolism at [facility] and was prescribed Eliquis a month ago. Complications began after a fall that caused a head fracture and pelvic and R hip fractures. Went to see PCP Lety Flynn prior to presentation to [facility] ER on 04/12/23 for hematuria that was [...] when sh (more content not included)... Normal [facility] Comment on above: Result Comment: Elec tronically Signed By: Garcia TURNER MD\.br\Date and Time Signed: 05/20/23 14:29 EDT\.br\Electronically Co-Signed By: Moon Howell\.br\Date and Time Co-Signed: 05/20/23 14:28 EDT Basophils Auto (Bld) [#/Vol] Ordered By: Lety Flynn on 05-15-2023 Basophils (Bld) [#/Vol] 0.1 10*3/uL 0.0-0.2 [facility] Basophils/100 WBC Auto (Bld) Ordered By: Lety Flynn on 05-15-2023 Basophils/100 WBC (Bld) 0.6 % . [facility] Eosinophils Auto (Bld) [#/Vo l]Ordered By: Lety Flynn on 05-15-2023 Eosinophils (Bld) [#/Vol] 0.1 10*3/uL 0.0-0.45 [facility] Eosinophils/100 WBC Auto (Bl d)Ordered By: Lety Flynn on 05-15-2023 Eosinophils/100 WBC (Bld) 0.8 % . [facility] Erythrocyte distribution wid th Auto (RBC) [Ratio]Ordered By: Lety Flynn on 05-15-2023 Erythrocyte distribution width (RBC) [Ratio] 17.4 % 11.9-15.3 [facility] Hematocrit Auto (Bld) [Volum e fraction]Ordered By: Lety Flynn on 05-15-2023 Hematocrit (Bld) [Volume fraction] 32.0 % 34.0-46.4 [facility] Hemoglobin [Mass/volume] in BloodOrdered By: Lety Flynn on 05-15-2023 Hemoglobin (Bld) [Mass/Vol] 10.4 g/dL 11.8-15.4 [facility] Leukocytes [#/volume] correc tiffanie for nucleated erythrocytes in Blood by Automated counOrdered By: Lety Flynn on 05-15-2023 WBC corrected for nucl RBC Auto (Bld) [#/Vol] 8.2 10*3/uL 3.8-11.6 [facility] Lymphocytes Auto (Bld) [#/Vo l]Ordered By: Lety Flynn on 05-15-2023 Lymphocytes (Bld) [#/Vol] 1.1 10*3/uL 1.00-4.8 [facility] Lymphocytes/100 WBC Auto (Bl d)Ordered By: Lety Flynn on 05-15-2023 Lymphocytes/100 WBC (Bld) 13.3 % . [facility] MCH Auto (RBC) [Entitic mass ]Ordered By: Lety Flynn on 05-15-2023 MCH (RBC) [Entitic mass] 27.1 pg 24.7-34.3 [facility] MCHC Auto (RBC) [Mass/Vol]Or dered By: Lety Flynn on 05-15-2023 MCHC (RBC) [Mass/Vol] 32.6 g/dL 32.0-35.0 [facility] MCV Auto (RBC) [Entitic vol] Ordered By: Lety Flynn on 05-15-2023 MCV (RBC) [Entitic vol] 83.1 fL 80-100 [facility] Monocytes Auto (Bld) [#/Vol] Ordered By: Lety Flynn on 05-15-2023 Monocytes (Bld) [#/Vol] 0.8 10*3/uL 0.0-0.8 [facility] Monocytes/100 WBC Auto (Bld) Ordered By: Lety Flynn on 05-15-2023 Monocytes/100 WBC (Bld) 9.2 % . [facility] Neutrophils Auto (Bld) [#/Vo l]Ordered By: Lety Flynn on 05-15-2023 Neutrophils (Bld) [#/Vol] 6.3 10*3/uL 1.8-7.7 [facility] Neutrophils/100 WBC Auto (Bl d)Ordered By: Lety Flynn on 05-15-2023 Neutrophils/100 WBC (Bld) 76.1 % . [facility] Nucleated erythrocytes [Pres ence] in Blood by Automated countOrdered By: Lety Flynn on 05-15-2023 Nucleated RBC Auto Ql (Bld) 0.1 /100{WBC} 0-0.5 [facility] Platelet mean volume Auto (B ld) [Entitic vol]Ordered By: Lety Flynn on 05-15-2023 Platelet mean volume (Bld) [Entitic vol] 6.9 fL 6.3-10.7 [facility] Platelets Auto (Bld) [#/Vol] Ordered By: Lety Flynn on 05-15-2023 Platelets (Bld) [#/Vol] 577 10*3/uL 150-450 [facility] RBC Auto (Bld) [#/Vol]Ordere d By: Lety Flynn on 05-15-2023 RBC (Bld) [#/Vol] 3.85 10*6/uL 3.60-5.00 [facility] WBC Auto (Bld) [#/Vol]Ordere d By: Lety Flynn on 05-15-2023 WBC (Bld) [#/Vol] 8.2 10*3/uL 3.8-11.6 [facility] Alanine aminotransferase [En zymatic activity/volume] in Serum or PlasmaOrdered By: Lety Flynn on 05-01-2023 ALT [Catalytic activity/Vol] 12 U/L 7-52 [facility] Albumin [Mass/volume] in Ser um or Plasma by Bromocresol green (BCG) dye binding methoOrdered By: Lety Flynn on 05-01-2023 Albumin BCG dye [Mass/Vol] 2.9 g/dL 3.5-5.7 [facility] Alkaline phosphatase [Enzyma tic activity/volume] in Serum or PlasmaOrdered By: Leyt Flynn on 05-01-2023 ALP [Catalytic activity/Vol] 74 U/L 34-104 [facility] Aspartate aminotransferase [ Enzymatic activity/volume] in Serum or PlasmaOrdered By: Lety Flynn on 05-01-2023 AST [Catalytic activity/Vol] 19 U/L 13-39 [facility] Automated erythrocytes count in urine sediment (number/area)Ordered By: Lety Flynn on 05-01-2023 RBC Auto (Urine sed) [#/Area] 20-49 [HPF] 0-4 [facility] Automated leukocytes count i n urine sediment (number/area)Ordered By: Lety Flynn on 05-01-2023 WBC Auto (Urine sed) [#/Area] Innumerable [HPF] 0-4 [facility] Basophils Auto (Bld) [#/Vol] Ordered By: Lety Flynn on 05-01-2023 Basophils (Bld) [#/Vol] 0.1 10*3/uL 0.0-0.2 [facility] Basophils/100 WBC Auto (Bld) Ordered By: Lety Flynn on 05-01-2023 Basophils/100 WBC (Bld) 0.7 % . [facility] Bilirubin Test strip Ql (U)O rdered By: Lety Flynn on 05-01-2023 Bilirubin Ql (U) Negative Negative [facility] Bilirubin.total [Mass/volume ] in Serum or PlasmaOrdered By: Lety Flynn on 05-01-2023 Bilirubin [Mass/Vol] 0.4 mg/dL 0.3-1.0 [facility] Calcium [Mass/volume] in Ser um or PlasmaOrdered By: Lety Flynn on 05-01-2023 Calcium [Mass/Vol] 9.0 mg/dL 8.6-10.3 [facility] Carbon dioxide, total [Moles /volume] in Serum or PlasmaOrdered By: Lety Flynn on 05-01-2023 CO2 [Moles/Vol] 27.8 mmol/L 21.0-31.0 [facility] Chloride [Moles/volume] in S asiya or PlasmaOrdered By: eLty Flynn on 05-01-2023 Chloride [Moles/Vol] 104 mmol/L 98-107 [facility] Color Auto (U)Ordered By: Virgilio Flynn on 05-01-2023 Color (U) Yellow Yellow [facility] Complete Blood Count Auto Di ffon 05-01-2023 Basophils (Bld) [#/Vol] 0.638901330 10*3/uL Normal 0.0-0.2 10*3/uL [facility] [employer] Other Basophils/100 WBC (Bld) 0.700 % . % [facility] [employer] Other Eosinophils (Bld) [#/Vol] 0.861194215 10*3/uL Normal 0.0-0.45 10*3/uL [employer] Other Eosinophils/100 WBC (Bld) 0.700 % . % [employer] Other Erythrocyte distribution width (RBC) [Ratio] 17.200 % High 11.9-15.3 % [employer] Other Hematocrit (Bld) [Volume fraction] 29.400 % Low 34.0-46.4 % [employer] Other Hemoglobin (Bld) [Mass/Vol] 9.556765 g/dL Low 11.8-15.4 g/dL [employer] Other Lymphocytes (Bld) [#/Vol] 0.624377779 10*3/uL Low 1.00-4.8 10*3/uL [facility] Other Lymphocytes/100 WBC (Bld) 10.300 % . % [employer] Other MCH (RBC) [Entitic mass] 27.1000 pg Normal 24.7-34.3 pg [employer] Other MCV (RBC) [Entitic vol] 84.5000 fL Normal 80-100 fL N [facility] [employer] Other Monocytes (Bld) [#/Vol] 0.258807397 10*3/uL High 0.0-0.8 10*3/uL [facility] Other Monocytes/100 WBC (Bld) 11.000 % . % [facility] [employer] Other Neutrophils (Bld) [#/Vol] 6.979511085 10*3/uL Normal 1.8-7.7 10*3/uL [employer] Other Neutrophils/100 WBC (Bld) 77.300 % . % [employer] Other Platelet mean volume (Bld) [Entitic vol] 7.2000 fL Normal 6.3-10.7 fL [employer] Other WBC (Bld) [#/Vol] 8.071752335 10*3/uL Normal 3.8 -11.6 10*3/uL [facility] Other Complete Blood Count Auto Diff 8.6 10*3/uL Normal 3.8-11.6 10*3/uL [facility] Other Complete Blood Count Auto Diff 32.1 g/dL Normal 32.0-35.0 g/dL [facility] Other Complete Blood Count Auto Diff 0.0 /100{WBC} Normal 0-0.5 /100{WBC} [employer] Other Comprehensive Metabolic Pane norma 05-01-2023 Albumin [Mass/Vol] 2.725922 g/dL Low 3.5-5.7 g/dL [employer] Other Bilirubin [Mass/Vol] 0.5718963 mg/dL Normal 0.3- 1.0 mg/dL [facility] Other Calcium [Mass/Vol] 9.1791664 mg/dL Normal 8.6-10 .3 mg/dL [employer] Other CO2 [Moles/Vol] 27.83980658 mmol/L Normal 21.0-3 1.0 mmol/L [facility] Other Creatinine [Mass/Vol] 0.30060282 mg/dL Normal 0. 60-1.20 mg/dL [facility] Other GFR/1.73 sq M.predicted MDRD (S/P/Bld) [Vol rate/Area] mL/min/{1.73_m2} [employer] Other Potassium [Moles/Vol] 4.59906591 mmol/L Normal 3 .5-5.1 mmol/L [employer] Other Protein [Mass/Vol] 7.175442 g/dL Normal 6.4-8.9 g/dL [employer] Other Comprehensive Metabolic Panel 4.4 g/dL [facility] Other Creatinine [Mass/volume] in Serum or PlasmaOrdered By: Lety Flynn on 05-01-2023 Creatinine [Mass/Vol] 0.64 mg/dL 0.60-1.20 [facility] Dipstick [employer] Microscopicon Dipstick & Microsc[facility] [employer] Other ED Note-Physicianon 05-01-20 ED Note-Physician [id number]:1 27 Normal [facility] Eosinophils Auto (Bld) [#/Vo l]Ordered By: Lety Flynn on 05-01-2023 Eosinophils (Bld) [#/Vol] 0.1 10*3/uL 0.0-0.45 [facility] Eosinophils/100 WBC Auto (Bl d)Ordered By: Lety Flynn on 05-01-2023 Eosinophils/100 WBC (Bld) 0.7 % . [facility] Erythrocyte distribution wid th Auto (RBC) [Ratio]Ordered By: Lety Flynn on 05-01-2023 Erythrocyte distribution width (RBC) [Ratio] 17.2 % 11.9-15.3 [facility] Erythrocytes [#/volume] in B lood by Automated countOrdered By: Lety Flynn on 05-01-2023 RBC (Bld) [#/Vol] 3.47 10*6/uL 3.60-5.00 [facility] Globulin Calc (S) [Mass/Vol] Ordered By: Lety Flynn on 05-01-2023 Globulin (S) [Mass/Vol] 4.4 g/dL [facility] Glucose [Mass/volume] in Ser um or PlasmaOrdered By: Lety Flynn on 05-01-2023 Glucose [Mass/Vol] 106 mg/dL 70-100 [facility] Comment on above: ADA recommended refe rence rangeRandom Glucose Reference Range is dependent on time and content of last meal. Glucose of more than 200 mg/dL in a nonstressed, ambulatory subject supports the diagnosis of Diabetes Mellitus. Hematocrit Auto (Bld) [Volum e fraction]Ordered By: Lety Flynn on 05-01-2023 Hematocrit (Bld) [Volume fraction] 29.4 % 34.0-46.4 [facility] Hemoglobin [Mass/volume] in BloodOrdered By: Lety Flynn on 05-01-2023 Hemoglobin (Bld) [Mass/Vol] 9.4 g/dL 11.8-15.4 [facility] Ketones Auto test strip (U) [Mass/Vol]Ordered By: Lety Flynn on 05-01-2023 Ketones (U) [Mass/Vol] Negative Negative [facility] Laboratory - UrinalysisOrder ed By: Lety Flynn on 05-01-2023 Hyaline casts LM Ql (Urine sed) 0-8 [LPF] 0-8 [facility] Leukocytes [#/volume] correc tiffanie for nucleated erythrocytes in Blood by Automated counOrdered By: Lety Flynn on 05-01-2023 WBC corrected for nucl RBC Auto (Bld) [#/Vol] 8.6 10*3/uL 3.8-11.6 [facility] Lymphocytes Auto (Bld) [#/Vo l]Ordered By: Lety Flynn on 05-01-2023 Lymphocytes (Bld) [#/Vol] 0.9 10*3/uL 1.00-4.8 [facility] Lymphocytes/100 WBC Auto (Bl d)Ordered By: Lety Flynn on 05-01-2023 Lymphocytes/100 WBC (Bld) 10.3 % . [facility] MCH Auto (RBC) [Entitic mass ]Ordered By: Lety Flynn on 05-01-2023 MCH (RBC) [Entitic mass] 27.1 pg 24.7-34.3 [facility] MCHC Auto (RBC) [Mass/Vol]Or dered By: Lety Flynn on 05-01-2023 MCHC (RBC) [Mass/Vol] 32.1 g/dL 32.0-35.0 [facility] MCV Auto (RBC) [Entitic vol] Ordered By: Lety Flynn on 05-01-2023 MCV (RBC) [Entitic vol] 84.5 fL 80-100 [facility] Monocytes Auto (Bld) [#/Vol] Ordered By: Lety Flynn on 05-01-2023 Monocytes (Bld) [#/Vol] 0.9 10*3/uL 0.0-0.8 [facility] Monocytes/100 WBC Auto (Bld) Ordered By: Lety Flynn on 05-01-2023 Monocytes/100 WBC (Bld) 11.0 % . [facility] Neutrophils Auto (Bld) [#/Vo l]Ordered By: Lety Flynn on 05-01-2023 Neutrophils (Bld) [#/Vol] 6.6 10*3/uL 1.8-7.7 [facility] Neutrophils/100 WBC Auto (Bl d)Ordered By: Lety Flynn on 05-01-2023 Neutrophils/100 WBC (Bld) 77.3 % . [facility] Nitrite Test strip Ql (U)Ord ered By: Lety Flynn on 05-01-2023 Nitrite Ql (U) Negative Negative [facility] No Panel InformationOrdered By: Lety Flynn on 05-01-2023 Estimated GFR (CKD-EPI) > 60.0 mL/Min [facility] Creatinine Clearance (Chem N/A [facility] Nucleated erythrocytes [Pres ence] in Blood by Automated countOrdered By: Lety Flynn on 05-01-2023 Nucleated RBC Auto Ql (Bld) 0.0 /100{WBC} 0-0.5 [facility] Platelet mean volume Auto (B ld) [Entitic vol]Ordered By: Lety Flynn on 05-01-2023 Platelet mean volume (Bld) [Entitic vol] 7.2 fL 6.3-10.7 [facility] Platelets [#/volume] in Bloo d by Automated countOrdered By: Lety Flynn on 05-01-2023 Platelets (Bld) [#/Vol] 589 10*3/uL 150-450 [facility] Potassium [Moles/volume] in Serum or PlasmaOrdered By: Lety Flynn on 05-01-2023 Potassium [Moles/Vol] 4.0 mmol/L 3.5-5.1 [facility] Protein Auto test strip (U) [Mass/Vol]Ordered By: Lety Flynn on 05-01-2023 Protein (U) [Mass/Vol] 30 mg/dL Negative [facility] Protein [Mass/volume] in Ser um or PlasmaOrdered By: Lety Flynn on 05-01-2023 Protein [Mass/Vol] 7.3 g/dL 6.4-8.9 [facility] Serum or plasma albumin/glob ulin mass ratioOrdered By: Lety Flynn on 05-01-2023 Albumin/Globulin [Mass ratio] 0.7 {ratio} [facility] Serum or plasma anion gap de terminationOrdered By: Lety Flynn on 05-01-2023 Anion gap [Moles/Vol] 8.2 mmol/L 6.0-15.0 [facility] Sodium [Moles/volume] in Ser um or PlasmaOrdered By: Lety Flynn on 05-01-2023 Sodium [Moles/Vol] 136 mmol/L 136-145 [facility] Specific gravity Auto test s trip (U) [Rel density]Ordered By: Lety Flynn on 05-01-2023 Specific gravity (U) [Rel density] 1.017 1.001-1.03 0 [facility] Squamous epithelial cells de tection in urine sediment by light microscopyOrdered By: Lety Flynn on 05-01-2023 Epithelial cells.squamous LM Ql (Urine sed) 5-9 [HPF] 0-2 [facility] Urea nitrogen [Mass/volume] in Serum or PlasmaOrdered By: Lety Flynn on 05-01-2023 Urea nitrogen [Mass/Vol] 18 mg/dL 7-25 [facility] Urine Cultureon 05-01-2023 Bacteria identified Cx Nom (U) [employer] Other Urine bacteria detection by automated methodOrdered By: Lety Flynn on 05-01-2023 Bacteria Auto Ql (U) 1+ None Seen [facility] Urine clarity by refractomet ry automatedOrdered By: Lety Flynn on 05-01-2023 Clarity Refractometry automated (U) Turbid Clear [facility] Urine culture routineOrdered By: Lety Flynn on 05-01-2023 Bacteria identified Cx Nom (U) 2 Days [facility] Bacteria identified Cx Nom (U) 2 Days [facility] Urine glucose measurement by automated test strip (mass/volume)Ordered By: Lety Flynn on 05-01-2023 Glucose Auto test strip (U) [Mass/Vol] Normal mg/dL Normal [facility] Urine hemoglobin detection b y automated test stripOrdered By: Lety Flynn on 05-01-2023 Hemoglobin Auto test strip Ql (U) 2+ Negative [facility] Urine leukocyte esterase det ection by automated test stripOrdered By: Lety Flynn on 05-01-2023 Leukocyte esterase Auto test strip Ql (U) 4+ Negative [facility] Urobilinogen Auto test strip (U) [Mass/Vol]Ordered By: Lety Flynn on 05-01-2023 Urobilinogen (U) [Mass/Vol] Normal mg/dL Normal [facility] WBC Auto (Bld) [#/Vol]Ordere d By: Lety Flynn on 05-01-2023 WBC (Bld) [#/Vol] 8.6 10*3/uL 3.8-11.6 [facility] pH Auto test strip (U)Ordere d By: Lety Flynn on 05-01-2023 pH (U) 7.0 [pH] 5.0-9.0 [facility] Activated partial thrombopla stin time (aPTT) in platelet poor plasma by coagulation aOrdered By: Lety Flynn on 04-16-2023 aPTT Coag (PPP) [Time] 35.4 s 25.1-36.5 [facility] Comment on above: A hematocrit value g reater than 55% may lead to inaccurate results in coagulation testing. Patients having hematocrit values >55% require a special collection tube for coagulation studies. Please contact the laboratory at [phone] for redraw instructions. Alanine aminotransferase [En zymatic activity/volume] in Serum or PlasmaOrdered By: Lety Flynn on 04-16-2023 ALT [Catalytic activity/Vol] 16 U/L 7-52 [facility] Albumin [Mass/volume] in Ser um or Plasma by Bromocresol green (BCG) dye binding methoOrdered By: Lety Flynn on 04-16-2023 Albumin BCG dye [Mass/Vol] 2.9 g/dL 3.5-5.7 [facility] Alkaline phosphatase [Enzyma tic activity/volume] in Serum or PlasmaOrdered By: Lety Flynn on 04-16-2023 ALP [Catalytic activity/Vol] 108 U/L 34-104 [facility] Aspartate aminotransferase [ Enzymatic activity/volume] in Serum or PlasmaOrdered By: Lety Flynn on 04-16-2023 AST [Catalytic activity/Vol] 19 U/L 13-39 [facility] Basophils Auto (Bld) [#/Vol] Ordered By: Lety Flynn on 04-16-2023 Basophils (Bld) [#/Vol] 0.1 10*3/uL 0.0-0.2 [facility] Basophils/100 WBC Auto (Bld) Ordered By: Lety Flynn on 04-16-2023 Basophils/100 WBC (Bld) 0.8 % . [facility] Bilirubin.total [Mass/volume ] in Serum or PlasmaOrdered By: Lety Flynn on 04-16-2023 Bilirubin [Mass/Vol] 0.4 mg/dL 0.3-1.0 [facility] Calcium [Mass/volume] in Ser um or PlasmaOrdered By: Lety Flynn on 04-16-2023 Calcium [Mass/Vol] 9.1 mg/dL 8.6-10.3 [facility] Carbon dioxide, total [Moles /volume] in Serum or PlasmaOrdered By: Lety Flynn on 04-16-2023 CO2 [Moles/Vol] 27.8 mmol/L 21.0-31.0 [facility] Chloride [Moles/volume] in S asiya or PlasmaOrdered By: Lety Flynn on 04-16-2023 Chloride [Moles/Vol] 95 mmol/L 98-107 [facility] Creatinine [Mass/volume] in Serum or PlasmaOrdered By: Lety Flynn on 04-16-2023 Creatinine [Mass/Vol] 0.83 mg/dL 0.60-1.20 [facility] Eosinophils Auto (Bld) [#/Vo l]Ordered By: Lety Flynn on 04-16-2023 Eosinophils (Bld) [#/Vol] 0.0 10*3/uL 0.0-0.45 [facility] Eosinophils/100 WBC Auto (Bl d)Ordered By: Lety Flynn on 04-16-2023 Eosinophils/100 WBC (Bld) 0.1 % . [facility] Erythrocyte distribution wid th Auto (RBC) [Ratio]Ordered By: Lety Flynn on 04-16-2023 Erythrocyte distribution width (RBC) [Ratio] 16.5 % 11.9-15.3 [facility] Globulin Calc (S) [Mass/Vol] Ordered By: Lety Flynn on 04-16-2023 Globulin (S) [Mass/Vol] 4.4 g/dL [facility] Glucose [Mass/volume] in Ser um or PlasmaOrdered By: Lety Flynn on 04-16-2023 Glucose [Mass/Vol] 135 mg/dL 70-100 [facility] Comment on above: ADA recommended refe rence rangeRandom Glucose Reference Range is dependent on time and content of last meal. Glucose of more than 200 mg/dL in a nonstressed, ambulatory subject supports the diagnosis of Diabetes Mellitus. Hematocrit Auto (Bld) [Volum e fraction]Ordered By: Lety Flynn on 04-16-2023 Hematocrit (Bld) [Volume fraction] 31.3 % 34.0-46.4 [facility] Hemoglobin [Mass/volume] in BloodOrdered By: Lety Flynn on 04-16-2023 Hemoglobin (Bld) [Mass/Vol] 10.2 g/dL 11.8-15.4 [facility] INR in Platelet poor plasma by Coagulation assayOrdered By: Lety Flynn on 04-16-2023 INR Coag (PPP) [Relative time] 2.2 {INR} [facility] Comment on above: INR Therapeutic Rang e [...] RBC Auto (Bld) [#/Vol] 10.6 10*3/uL 3.8-11.6 [facility] Lymphocytes Auto (Bld) [#/Vo l]Ordered By: Lety Flynn on 04-16-2023 Lymphocytes (Bld) [#/Vol] 1.0 10*3/uL 1.00-4.8 [facility] Lymphocytes/100 WBC Auto (Bl d)Ordered By: Lety Flynn on 04-16-2023 Lymphocytes/100 WBC (Bld) 9.1 % . [facility] MCH Auto (RBC) [Entitic mass ]Ordered By: Lety Flynn on 04-16-2023 MCH (RBC) [Entitic mass] 27.9 pg 24.7-34.3 [facility] MCHC Auto (RBC) [Mass/Vol]Or dered By: Lety Flynn on 04-16-2023 MCHC (RBC) [Mass/Vol] 32.5 g/dL 32.0-35.0 [facility] MCV Auto (RBC) [Entitic vol] Ordered By: Lety Flynn on 04-16-2023 MCV (RBC) [Entitic vol] 85.9 fL 80-100 [facility] Monocytes Auto (Bld) [#/Vol] Ordered By: Lety Flynn on 04-16-2023 Monocytes (Bld) [#/Vol] 0.8 10*3/uL 0.0-0.8 [facility] Monocytes/100 WBC Auto (Bld) Ordered By: Lety Flynn on 04-16-2023 Monocytes/100 WBC (Bld) 8.0 % . [facility] Neutrophils Auto (Bld) [#/Vo l]Ordered By: Lety Flynn on 04-16-2023 Neutrophils (Bld) [#/Vol] 8.7 10*3/uL 1.8-7.7 [facility] Neutrophils/100 WBC Auto (Bl d)Ordered By: Lety Flynn on 04-16-2023 Neutrophils/100 WBC (Bld) 82.0 % . [facility] No Panel InformationOrdered By: Lety Flynn on 04-16-2023 Estimated GFR (CKD-EPI) > 60.0 mL/Min [facility] Creatinine Clearance (Chem N/A [facility] Nucleated erythrocytes [Pres ence] in Blood by Automated countOrdered By: Lety Flynn on 04-16-2023 Nucleated RBC Auto Ql (Bld) 0.0 /100{WBC} 0-0.5 [facility] Platelet mean volume Auto (B ld) [Entitic vol]Ordered By: Lety Flynn on 04-16-2023 Platelet mean volume (Bld) [Entitic vol] 7.1 fL 6.3-10.7 [facility] Platelets Auto (Bld) [#/Vol] Ordered By: Lety Flynn on 04-16-2023 Platelets (Bld) [#/Vol] 554 10*3/uL 150-450 [facility] Potassium [Moles/volume] in Serum or PlasmaOrdered By: Lety Flynn on 04-16-2023 Potassium [Moles/Vol] 3.7 mmol/L 3.5-5.1 [facility] Protein [Mass/volume] in Ser um or PlasmaOrdered By: Lety Flynn on 04-16-2023 Protein [Mass/Vol] 7.3 g/dL 6.4-8.9 [facility] Prothrombin time (PT)Ordered By: Lety Flynn on 04-16-2023 PT Coag (PPP) [Time] 26.5 s 9.0-12.9 [facility] Comment on above: A hematocrit value g reater than 55% may lead to inaccurate results in coagulation testing. Patients having hematocrit values >55% require a special collection tube for coagulation studies. Please contact the laboratory at [phone] for redraw instructions. RBC Auto (Bld) [#/Vol]Ordere d By: Lety Flynn on 04-16-2023 RBC (Bld) [#/Vol] 3.65 10*6/uL 3.60-5.00 [facility] Serum or plasma albumin/glob ulin mass ratioOrdered By: Lety Flynn on 04-16-2023 Albumin/Globulin [Mass ratio] 0.7 {ratio} [facility] Serum or plasma anion gap de terminationOrdered By: Lety Flynn on 04-16-2023 Anion gap [Moles/Vol] 11.9 mmol/L 6.0-15.0 [facility] Sodium [Moles/volume] in Ser um or PlasmaOrdered By: Lety Flynn on 04-16-2023 Sodium [Moles/Vol] 131 mmol/L 136-145 [facility] Urea nitrogen [Mass/volume] in Serum or PlasmaOrdered By: Lety Flynn on 04-16-2023 Urea nitrogen [Mass/Vol] 17 mg/dL 7-25 [facility] WBC Auto (Bld) [#/Vol]Ordere d By: Lety Flynn on 04-16-2023 WBC (Bld) [#/Vol] 10.6 10*3/uL 3.8-11.6 [facility] Activated partial thrombopla stin time (aPTT) in platelet poor plasma by coagulation aOrdered By: Pamela Valenzuela on 04-12-2023 aPTT Coag (PPP) [Time] 33.5 s 25.1-36.5 [facility] Comment on above: A hematocrit value g reater than 55% may lead to inaccurate results in coagulation testing. Patients having hematocrit values >55% require a special collection tube for coagulation studies. Please contact the laboratory at [phone] for redraw instructions. Alanine aminotransferase [En zymatic activity/volume] in Serum or PlasmaOrdered By: Pamela Valenzuela on 04-12-2023 ALT [Catalytic activity/Vol] 20 U/L 7-52 [facility] Albumin [Mass/volume] in Ser um or Plasma by Bromocresol green (BCG) dye binding methoOrdered By: Pamela Valenzuela on 04-12-2023 Albumin BCG dye [Mass/Vol] 3.1 g/dL 3.5-5.7 [facility] Alkaline phosphatase [Enzyma tic activity/volume] in Serum or PlasmaOrdered By: Pamela Valenzuela on 04-12-2023 ALP [Catalytic activity/Vol] 116 U/L 34-104 [facility] Aspartate aminotransferase [ Enzymatic activity/volume] in Serum or PlasmaOrdered By: Pamela Valenzuela on 04-12-2023 AST [Catalytic activity/Vol] 20 U/L 13-39 [facility] Automated erythrocytes count in urine sediment (number/area)Ordered By: Pamela Valenzuela on 04-12-2023 RBC Auto (Urine sed) [#/Area] Innumerable [HPF] 0-4 [facility] Automated leukocytes count i n urine sediment (number/area)Ordered By: Pamela Valenzuela on 04-12-2023 WBC Auto (Urine sed) [#/Area] Innumerable [HPF] 0-4 [facility] Basophils Auto (Bld) [#/Vol] Ordered By: Pamela Valenzuela on 04-12-2023 Basophils (Bld) [#/Vol] 0.1 10*3/uL 0.0-0.2 [facility] Basophils/100 WBC Auto (Bld) Ordered By: Pamela Valenzuela on 04-12-2023 Basophils/100 WBC (Bld) 0.6 % . [facility] Bilirubin Test strip Ql (U)O rdered By: Pamela Valenzuela on 04-12-2023 Bilirubin Ql (U) Negative Negative [facility] Bilirubin.total [Mass/volume ] in Serum or PlasmaOrdered By: Pamela Valenzuela on 04-12-2023 Bilirubin [Mass/Vol] 0.5 mg/dL 0.3-1.0 [facility] Calcium [Mass/volume] in Ser um or PlasmaOrdered By: Pamela Valenzuela on 04-12-2023 Calcium [Mass/Vol] 9.3 mg/dL 8.6-10.3 [facility] Carbon dioxide, total [Moles /volume] in Serum or PlasmaOrdered By: Pamela Valenzuela on 04-12-2023 CO2 [Moles/Vol] 28.1 mmol/L 21.0-31.0 [facility] Chloride [Moles/volume] in S asiya or PlasmaOrdered By: Pamela Valenzuela on 04-12-2023 Chloride [Moles/Vol] 97 mmol/L 98-107 [facility] Color Auto (U)Ordered By: Alana Valenzuela on 04-12-2023 Color (U) Red Yellow [facility] Creatinine [Mass/volume] in Serum or PlasmaOrdered By: Pamela Valenzuela on 04-12-2023 Creatinine [Mass/Vol] 0.85 mg/dL 0.60-1.20 [facility] Eosinophils Auto (Bld) [#/Vo l]Ordered By: Pamela Valenzuela on 04-12-2023 Eosinophils (Bld) [#/Vol] 0.0 10*3/uL 0.0-0.45 [facility] Eosinophils/100 WBC Auto (Bl d)Ordered By: Pamela Valenzuela on 04-12-2023 Eosinophils/100 WBC (Bld) 0.5 % . [facility] Erythrocyte distribution wid th Auto (RBC) [Ratio]Ordered By: Pamela Valenzuela on 04-12-2023 Erythrocyte distribution width (RBC) [Ratio] 15.9 % 11.9-15.3 [facility] Globulin Calc (S) [Mass/Vol] Ordered By: Pamela Valenzuela on 04-12-2023 Globulin (S) [Mass/Vol] 5.3 g/dL [facility] Glucose [Mass/volume] in Ser um or PlasmaOrdered By: Pamela Valenzuela on 04-12-2023 Glucose [Mass/Vol] 101 mg/dL 70-100 [facility] Comment on above: ADA recommended refe rence rangeRandom Glucose Reference Range is dependent on time and content of last meal. Glucose of more than 200 mg/dL in a nonstressed, ambulatory subject supports the diagnosis of Diabetes Mellitus. Hematocrit Auto (Bld) [Volum e fraction]Ordered By: Pamela Valenzuela on 04-12-2023 Hematocrit (Bld) [Volume fraction] 32.9 % 34.0-46.4 [facility] Hemoglobin [Mass/volume] in BloodOrdered By: Pamela Valenzuela on 04-12-2023 Hemoglobin (Bld) [Mass/Vol] 10.8 g/dL 11.8-15.4 [facility] INR in Platelet poor plasma by Coagulation assayOrdered By: Pamela Valenzuela on 04-12-2023 INR Coag (PPP) [Relative time] 1.8 {INR} [facility] Comment on above: INR Therapeutic Rang e [...] on 04-12-2023 Ketones (U) [Mass/Vol] Negative Negative [facility] Laboratory - UrinalysisOrder ed By: Pamela Valenzuela on 04-12-2023 Hyaline casts LM Ql (Urine sed) 0-8 [LPF] 0-8 [facility] Leukocytes [#/volume] correc tiffanie for nucleated erythrocytes in Blood by Automated counOrdered By: Pamela Valenzuela on 04-12-2023 WBC corrected for nucl RBC Auto (Bld) [#/Vol] 9.1 10*3/uL 3.8-11.6 [facility] Lymphocytes Auto (Bld) [#/Vo l]Ordered By: Pamela Valenzuela on 04-12-2023 Lymphocytes (Bld) [#/Vol] 1.4 10*3/uL 1.00-4.8 [facility] Lymphocytes/100 WBC Auto (Bl d)Ordered By: Pamela Valenzuela on 04-12-2023 Lymphocytes/100 WBC (Bld) 15.2 % . [facility] MCH Auto (RBC) [Entitic mass ]Ordered By: Pamela Valenzuela on 04-12-2023 MCH (RBC) [Entitic mass] 27.9 pg 24.7-34.3 [facility] MCHC Auto (RBC) [Mass/Vol]Or dered By: Pamela Vlaenzuela on 04-12-2023 MCHC (RBC) [Mass/Vol] 32.7 g/dL 32.0-35.0 [facility] MCV Auto (RBC) [Entitic vol] Ordered By: Pamela Valenzuela on 04-12-2023 MCV (RBC) [Entitic vol] 85.3 fL 80-100 [facility] Monocyte distribution width [Entitic volume] in Blood by AutomatedOrdered By: Pamela Valenzuela on 04-12-2023 Monocyte distribution width Auto (Bld) [Entitic vol] 20.52 % 0.00-20.00 [facility] Comment on above: For adults in ED, MD W > 20.0 may be associated with a higher risk of sepsis during the first 12 hrs of hospital admission Monocytes Auto (Bld) [#/Vol] Ordered By: Pamela Valenzuela on 04-12-2023 Monocytes (Bld) [#/Vol] 0.7 10*3/uL 0.0-0.8 [facility] Monocytes/100 WBC Auto (Bld) Ordered By: Pamela Valenzuela on 04-12-2023 Monocytes/100 WBC (Bld) 8.2 % . [facility] Natriuretic peptide B [Mass/ Vol]Ordered By: Pamela Valenzuela on 04-12-2023 Natriuretic peptide B (Bld) [Mass/Vol] 43.0 pg/mL 5-100 [facility] Neutrophils Auto (Bld) [#/Vo l]Ordered By: Pamela Valenzuela on 04-12-2023 Neutrophils (Bld) [#/Vol] 6.8 10*3/uL 1.8-7.7 [facility] Neutrophils/100 WBC Auto (Bl d)Ordered By: Pamela Valenzuela on 04-12-2023 Neutrophils/100 WBC (Bld) 75.5 % . [facility] Nitrite Test strip Ql (U)Ord ered By: Pamela Valenzuela on 04-12-2023 Nitrite Ql (U) Negative Negative [facility] No Panel InformationOrdered By: Pamela Valenzuela on 04-12-2023 Estimated GFR (CKD-EPI) > 60.0 mL/Min [facility] Creatinine Clearance (Chem 49.87 [facility] Nucleated erythrocytes [Pres ence] in Blood by Automated countOrdered By: Pamela Valenzuela on 04-12-2023 Nucleated RBC Auto Ql (Bld) 0.1 /100{WBC} 0-0.5 [facility] Platelet mean volume Auto (B ld) [Entitic vol]Ordered By: Pamela Valenuzela on 04-12-2023 Platelet mean volume (Bld) [Entitic vol] 6.6 fL 6.3-10.7 [facility] Platelets Auto (Bld) [#/Vol] Ordered By: Pamela Valenzuela on 04-12-2023 Platelets (Bld) [#/Vol] 488 10*3/uL 150-450 [facility] Potassium [Moles/volume] in Serum or PlasmaOrdered By: Pamela Valenzuela on 04-12-2023 Potassium [Moles/Vol] 3.6 mmol/L 3.5-5.1 [facility] Protein Auto test strip (U) [Mass/Vol]Ordered By: Pamela Valenzuela on 04-12-2023 Protein (U) [Mass/Vol] 30 mg/dL Negative [facility] Protein [Mass/volume] in Ser um or PlasmaOrdered By: Pamela Valenzuela on 04-12-2023 Protein [Mass/Vol] 8.4 g/dL 6.4-8.9 [facility] Prothrombin time (PT)Ordered By: Pamela Valenzuela on 04-12-2023 PT Coag (PPP) [Time] 21.2 s 9.0-12.9 [facility] Comment on above: A hematocrit value g reater than 55% may lead to inaccurate results in coagulation testing. Patients having hematocrit values >55% require a special collection tube for coagulation studies. Please contact the laboratory at [phone] for redraw instructions. RBC Auto (Bld) [#/Vol]Ordere d By: Pamela Valenzuela on 04-12-2023 RBC (Bld) [#/Vol] 3.86 10*6/uL 3.60-5.00 [facility] Serum or plasma albumin/glob ulin mass ratioOrdered By: Pamela Valenzuela on 04-12-2023 Albumin/Globulin [Mass ratio] 0.6 {ratio} [facility] Serum or plasma anion gap de terminationOrdered By: Pamela Valenzuela on 04-12-2023 Anion gap [Moles/Vol] 12.5 mmol/L 6.0-15.0 [facility] Sodium [Moles/volume] in Ser um or PlasmaOrdered By: Pamela Valenzuela on 04-12-2023 Sodium [Moles/Vol] 134 mmol/L 136-145 [facility] Specific gravity Auto test s trip (U) [Rel density]Ordered By: Pamela Valenzuela on 04-12-2023 Specific gravity (U) [Rel density] > 1.050 1.001-1.03 0 [facility] Squamous epithelial cells de tection in urine sediment by light microscopyOrdered By: Pamela Valenzuela on 04-12-2023 Epithelial cells.squamous LM Ql (Urine sed) 0-1 [HPF] 0-2 [facility] Troponin I.cardiac [Mass/vol ume] in Serum or Plasma by Detection limit <= 0.01 ng/Ordered By: Pamela Valenzuela on 04-12-2023 Troponin I.cardiac DL <= 0.01 ng/mL [Mass/Vol] 6.2 pg/mL 0.0-15.0 [facility] Urea nitrogen [Mass/volume] in Serum or PlasmaOrdered By: Pamela Valenzuela on 04-12-2023 Urea nitrogen [Mass/Vol] 20 mg/dL 7-25 [facility] Urine bacteria detection by automated methodOrdered By: Pamela Valenzuela 04-12-2023 Bacteria Auto Ql (U) 2+ None Seen [facility] Urine clarity by refractomet ry automatedOrdered By: Pamela Valenzuela on 04-12-2023 Clarity Refractometry automated (U) Turbid Clear [facility] Urine culture routineOrdered By: Pamela Valenzuela on 04-12-2023 Bacteria identified Cx Nom (U) 2 Days [facility] Urine glucose measurement by automated test strip (mass/volume)Ordered By: Pamela Valenzuela on 04-12-2023 Glucose Auto test strip (U) [Mass/Vol] Normal mg/dL Normal [facility] Urine hemoglobin detection b y automated test stripOrdered By: Pamela Valenzuela on 04-12-2023 Hemoglobin Auto test strip Ql (U) 3+ Negative [facility] Urine leukocyte esterase det ection by automated test stripOrdered By: Pamela Valenzuela on 04-12-2023 Leukocyte esterase Auto test strip Ql (U) 4+ Negative [facility] Urobilinogen Auto test strip (U) [Mass/Vol]Ordered By: Pamela Valenzuela on 04-12-2023 Urobilinogen (U) [Mass/Vol] Normal mg/dL Normal [facility] WBC Auto (Bld) [#/Vol]Ordere d By: Pamela Valenzuela on 04-12-2023 WBC (Bld) [#/Vol] 9.1 10*3/uL 3.8-11.6 [facility] Yeast detection in urine sed iment by light microscopyOrdered By: Pamela Valenzuela on 04-12-2023 Yeast LM Ql (Urine sed) None seen [HPF] None Se en [facility] pH Auto test strip (U)Ordere d By: Pamela Valenzuela on 04-12-2023 pH (U) 7.5 [pH] 5.0-9.0 [facility] A1C HEMOGLOBINon 01-03-2023 HbA1c (Bld) [Mass fraction] 5.6 % [facility] Other HbA1c (Bld) [Mass fraction]o n 01-03-2023 A1C HEMOGLOBIN [place] [employer] Other STR cardiac stress/lexiscano n 09-14-2022 STR cardiac stress/lexiscan [facility] [employer] Other STR cardiac stress/lexiscan [facility] Main [facility] [employer] Other STR cardiac stress/lexiscan [address] [facility] [employer] Other STR cardiac stress/[place] [address] [employer] Other STR cardiac stress/lexiscan Cardiac Stress Test [facility] Other STR cardiac stress/lexiscan Signed [facility] Other STR cardiac stress/lexiscan Patient: Jose Kim MR#: [id number] [place] [employer] Other STR cardiac stress/lexiscan 6 [facility] Other STR cardiac stress/lexiscan : 1945 Acct:[id number] [facility] Other STR cardiac stress/lexiscan Age/Sex: 77 / F ADM Date: 09/14/22 [facility] Other STR cardiac stress/lexiscan Loc: [place] Room: Type: [facility] Other STR cardiac stress/lexiscan Attending Dr: Lety Flynn [facility] [employer] Other STR cardiac stress/lexiscan Copies to: Elsy Dumas MD, [facility] [employer] Other STR cardiac stress/lexiscan [facility] Other STR cardiac stress/lexiscan Ordering Provider: Lety Flynn [facility] [employer] Other STR cardiac stress/lexiscan Date of Service: 09/14/22 [facility] Other STR cardiac stress/lexiscan STR/STR cardiac stress/lexiscan: Shortness of breath;Irregular heart [facility] Other STR cardiac stress/lexiscan rhythm [facility] Other STR cardiac stress/lexiscan ORDERED BY: Lety Flynn DNP [facility] Other STR cardiac stress/lexiscan INDICATION: A 77-year-old patient with dyspnea on exertion. [facility] Other STR cardiac stress/lexiscan Resting ECG revealed sinus rhythm, heart rate 62 beats per minute. Resting blood pressure 145/75 [facility] Other STR cardiac stress/lexiscan mmHg. [facility] Other STR cardiac stress/lexiscan Following intravenous administration of 400 mcg of Lexiscan over 10 seconds, no ischemic EKG changes [facility] Other STR cardiac stress/lexiscan were noted. No chest pain was reported by the patient and no significant cardiac arrhythmias were [facility] Other STR cardiac stress/lexiscan seen. [facility] Other STR cardiac stress/lexiscan CONCLUSION: [facility] Other STR cardiac stress/lexiscan 1. No Lexiscan-induced ischemic EKG changes, chest pain or cardiac arrhythmias. [facility] Other STR cardiac stress/lexiscan 2. Cardiolite studies to be reported separately by Nuclear Cardiology. [facility] Other STR cardiac stress/lexiscan Transcribed By: NTS 09/15/22 1728 [facility] Other STR cardiac stress/lexiscan Dictated By: Elsy Dumas MD, [facility] 09/14/22 1629 [facility] Other STR cardiac stress/lexiscan Signed By: [facility] Other STR cardiac stress/lexiscan 09/17/22 0853 [facility] Other [facility] echo transthoracicon E[facility] echo transthoracic Echocardiogram [facility] Other [facility] echo transthoracic [facility]: [facility]: [facility] Other [facility] echo transthoracic Date of Service: 09/07/2210/25/844 [facility] Other [facility] echo transthoracic ECH/ECH echo transthoracic: Shortness of breath [facility] Other [facility] echo transthoracic Copies to: Elsy Dumas MD, [facility] [employer] Other [facility] echo transthoracic Leyt Flynn, [facility] Other [facility] BSA: 1.7 m2 BP: 1 38/74 mmHg [facility] Other [facility] HR: 89 No rt [employer] Other [facility] echo transthoracic Reason For Study: Shortness of breath [facility] Other [facility] echo transthoracic History: COPD,For jordana smoker [facility] Other [facility] echo transthoracic Interpretation Summary [facility] Other [facility]sthoracic The left ventricu lar size and thickness are normal. [facility] Other [facility] Ejection Fraction = 55-60%. [facility] Other [facility] echo transthoracic There is no prior echocardiogram noted for this patient. [facility] Other [facility] flow and Doppler was performed. The study was technically good in quality. [facility] Other [facility] Left Ventricle: T he left ventricular size and thickness are normal. Ejection [facility] Other [facility]horacic Fraction = 55-60%. [facility] Other [facility] Left Atrium: The left atrium appears normal in size. The atrial septum [facility] Other [facility] echo transthoracic appears normal. [facility] Other [facility]horacic Right Atrium: The right atrium appears normal in size. [facility] Other [facility]horacic Right Ventricle: The right ventricular size, thickness and function are [facility] Other [facility] echo transthoracic normal. No rt [employer] Other [facility]horacic Aortic Valve: The aortic valve is normal in structure and function. [facility] Other [facility]acic Mitral Valve: The mitral valve is normal in structure and function. [facility] Other [facility] Tricuspid Valve: The tricuspid valve is normal. There is trace tricuspid [facility] Other [facility] echo transthoracic regurgitation. [facility] Other [facility] echo transthoracic Pulmonic Valve: T he pulmonic valve is not well seen, but is grossly normal. [facility] Other [facility]horacic Arteries: The aor tic root is normal size. [facility] Other [facility]horacic Pericardium/Pleur a: No pericardial effusion seen. There is no pleural [facility] Other [facility] echo transthoracic effusion. No rt [employer] Other [facility]hor[facility] IVC/Hepatic Viens : The IVC is normal in size with an inspiratory collapse of [facility] Other [facility]acic greater then 50%, suggesting normal right atrial pressure. [facility] Other [facility] echo transthoracic Miscellaneous: No thrombus, vegetation or mass is seen. [facility] Other [facility] echo transthoracic Measurements with Normals [facility] Other [facility] echo transthoracic IVSd: 0.71 cm (0. 7-1.1 cm)LVIDd: 5.0 cm (3.7-5.4 cm) [facility] Other [facility] echo transthoracic LVPWd: 0.70 cm (0 .7-1.1 cm)LVIDs: 3.2 cm (2.3-3.6 cm) [facility] Other [facility] echo transthoracic LA dimension: 3.8 cm(2.3-4.0 cm)Ao root diam: 2.8 cm(2.0-3.6 cm) [facility] Other [facility] echo transthoracic Doppler with Normals [facility] Other [facility] echo transthoracic RVSP(TR): 39.4 mm Hg (18-35mmHg) [facility] Other [facility] echo transthoracic MV E max phu: 71. 1 cm/sec(0.8-1.3m/s) [facility] Other [facility] echo transthoracic MV A max phu: 61. 3 cm/sec(0.0-0.0m/s) [facility] Other [facility] echo transthoracic MV E/A: 1.2 (<1.5) [facility] Other [facility] echo transthoracic MMode/2D Measurem ents Calculations [facility] Other [facility] echo transthoracic RVDd: 2.3 cm FS: 36.6 % Ao root area: 6.1 cm2 [facility] Other [facility] echo transthoracic RV S Phu: 10.8 cm /sec EDV(Teich): 118.1 ml [facility] Other [facility] echo transthoracic ESV(Teich): 40.0 ml [facility] Other [facility] echo transthoracic EF(Teich): 66.1 % [facility] Other [facility] echo transthoracic Doppler Measureme nts Calculations [facility] Other [facility] MV dec time: 0.19 sec E/E' lat: MV dec slope: TV max PG: [facility] Other [facility] 5.1 379.3 cm/sec2 34.0 mmHg [facility] Other [facility] E/E' med: No [facility] [employer] Other [facility] echo transthoracic 8.5 No [facility] [employer] Other [facility] echo transthoracic __ No [facility] [employer] Other [facility] tran[facility]hor[facility] TR max phu: N [facility] [employer] Other [facility]horacic 293.2 cm/sec [facility] Other [facility]hor[facility] TR max P.4 mmHg [facility] Other [facility] RAP systole: 5.0 mmHg [facility] Other [facility] transthoracic [employer] Other [facility]horacic Electronically si gned by: ELSY DUMAS MD, [facility] on 09/07/2022 12:37 PM [facility] Other [facility] echo transthoracic Transcribed By: [facility] Other [facility] echo transthoracic Performed At: 10/25 0856 [facility] Other [facility] echo transthoracic Signed By: Elsy Dumas MD, FACC 09/07/22 1237 [facility] Other FFD mammogram Breast - bilat eral Screeningon 09-07-2022 MM screening mammo BI w/CAD Mammography Report [facility] Other MM screening mammo BI w/CAD [facility]: [facility] Other MM screening mammo BI w/CAD Copies to: Lety Flynn DNP [facility] Other MM screening mammo BI w/CAD Date of Service: 09/07/22 [facility] Other MM screening mammo BI w/CAD MM/MM screening mammo BI w/CAD: Encounter for screening mammogram for [employer] Other MM screening mammo BI w/CAD malignant neoplasm of [facility] [employer] Other MM screening mammo BI w/CAD CLINICAL DATA: Screening for malignancy. [facility] Other MM screening mammo BI w/CAD BILATERAL SCREENING MAMMOGRAMS - FULL FIELD DIGITAL WITH TOMOSYNTHESIS AND CAD [facility] Other MM screening mammo BI w/CAD Tomosynthesis craniocaudal and mediolateral oblique views of both breasts were obtained using low- [facility] Other MM screening mammo BI w/CAD dose digital technique. Comparison is made to prior studies from 08/08/2021, 05/19/2019, 04/11/2018, [facility] Other MM screening mammo BI w/CAD and 04/01/2017. This examination was reviewed with the aid of CAD. [employer] Other MM screening mammo BI w/CAD There are scattered fibroglandular densities. Benign-appearing calcifications are present. There is [employer] Other MM screening mammo BI w/CAD a similar focal asymmetry on the right laterally. There are no dominant masses, typically malignant [employer] Other MM screening mammo BI w/CAD calcifications or architectural distortion. There has been no significant interval change. [employer] Other MM screening mammo BI w/CAD MM/MM screening mammo BI w/CAD [employer] Other MM screening mammo BI w/CAD IMPRESSION: [employer] Other MM screening mammo BI w/CAD NO MAMMOGRAPHIC EVIDENCE OF MALIGNANCY. [employer] Other MM screening mammo BI w/CAD ROUTINE FOLLOW-UP IS RECOMMENDED IN ONE YEAR. [employer] Other MM screening mammo BI w/CAD RESULT CODE: 2 [employer] Other MM screening mammo BI w/CAD Benign Findings(s) [employer] Other MM screening mammo BI w/CAD DENSITY CODE: 2 (approximately 25-50% glandular) [employer] Other MM screening mammo BI w/CAD FOLLOW UP: 1YR [employer] Other MM screening mammo BI w/CAD The false-negative rate of mammography is approximately 10-percent. [employer] Other MM screening mammo BI w/CAD Management of a palpable abnormality must be based on clinical grounds. [employer] Other MM screening mammo BI w/CAD Patient was entered into a reminder system with a target due date for the next mammogram. [employer] Other MM screening mammo BI w/CAD Impression dictated by: Joel Valiente M.D.09/07/2022 10:15 AM [employer] Other MM screening mammo BI w/CAD Dictation Location: [facility] [employer] Other MM screening mammo BI w/CAD Transcribed By: JOAO 09/07/22 1015 [employer] Other MM screening mammo BI w/CAD Dictated By: Joel Valiente II, MD 09/07/22 1010 [employer] Other MM screening mammo BI w/CAD Signed By: [employer] Other MM screening mammo BI w/CAD 09/07/22 1015 [employer] Other MM screening mammo BI w/CADo n 09-07-2022 MM screening mammo BI w/CAD [facility] [employer] Other MM screening mammo BI w/CAD [facility] [employer] Other MM screening mammo BI w/CAD [address] [place] [address] [employer] Other MM screening mammo BI w/CAD [place] [id number] [employer] Other MM screening mammo BI w/CAD Signed [employer] Other MM screening mammo BI w/CAD Patient: Jose Kim MR#: [id number] [employer] Other MM screening mammo BI w/CAD 6 [employer] Other MM screening mammo BI w/CAD : 1945 Acct:[id number] [employer] Other MM screening mammo BI w/CAD Age/Sex: 77 / F ADM Date: 09/07/22 [employer] Other MM screening mammo BI w/CAD Attending Dr: Lety Flynn DNP [employer] Other MM screening mammo BI w/CAD Ordering Provider: Lety Flynn DNP [employer] Other A1C HEMOGLOBINon 09-03-2022 HbA1c (Bld) [Mass fraction] 5.7 % [employer] Other HbA1c (Bld) [Mass fraction]o n 09-03-2022 A1C HEMOGLOBIN [employer] Other Albumin [Mass/volume] in Ser um or PlasmaOrdered By: Pete Erazo on 08-20-2022 Albumin [Mass/Vol] 3.5 g/dL 3.2-5.5 [facility] Albumin [Mass/Vol] 3.4 g/dL 2.9-4.4 [facility] Basophils Auto (Bld) [#/Vol] Ordered By: Pete Erazo on 08-20-2022 Basophils (Bld) [#/Vol] 0.0 10*3/uL 0.0-0.2 [facility] Basophils/100 WBC Auto (Bld) Ordered By: Pete Erazo on 08-20-2022 Basophils/100 WBC (Bld) 0.5 % . [facility] Creatinine and Glomerular fi ltration rate.predicted panel (S/P/Bld)Ordered By: Pete Erazo on 08-20-2022 Creatinine [Mass/Vol] 0.94 mg/dL 0.44-1.03 [facility] Eosinophils Auto (Bld) [#/Vo l]Ordered By: Pete Erazo on 08-20-2022 Eosinophils (Bld) [#/Vol] 0.0 10*3/uL 0.0-0.45 [facility] Eosinophils/100 WBC Auto (Bl d)Ordered By: Pete Erazo on 08-20-2022 Eosinophils/100 WBC (Bld) 0.3 % . [facility] Erythrocyte distribution wid th Auto (RBC) [Ratio]Ordered By: Pete Erazo on 08-20-2022 Erythrocyte distribution width (RBC) [Ratio] 14.4 % 11.9-15.3 [facility] Erythrocyte sedimentation ra te by Photometric methodOrdered By: Pete Erazo on 08-20-2022 ESR Photometric method (Bld) [Velocity] 58 mm/hr 0-29 [facility] Estimated glomerular filtrat ion rate (GFR) non- AmericanOrdered By: Pete Erazo on 08-20-2022 GFR/1.73 sq M.predicted among non-blacks MDRD (S/P/Bld) [Vol rate/Area] 58 mL/Min [facility] Globulin Calc (S) [Mass/Vol] Ordered By: Pete Erazo on 08-20-2022 Globulin (S) [Mass/Vol] 5.1 g/dL [facility] Hematocrit Auto (Bld) [Volum e fraction]Ordered By: Pete Erazo on 08-20-2022 Hematocrit (Bld) [Volume fraction] 39.8 % 34.0-46.4 [facility] Hemoglobin [Mass/volume] in BloodOrdered By: Pete Erazo on 08-20-2022 Hemoglobin (Bld) [Mass/Vol] 13.1 g/dL 11.8-15.4 [facility] IgA [Mass/volume] in Serum o r PlasmaOrdered By: Pete Erazo on 08-20-2022 IgA [Mass/Vol] 259 mg/dL 64-422 [facility] IgG [Mass/volume] in Serum o r PlasmaOrdered By: Pete Erazo on 08-20-2022 IgG [Mass/Vol] 2783 mg/dL 586-1602 [facility] IgM [Mass/volume] in Serum o r PlasmaOrdered By: Pete Erazo on 08-20-2022 IgM [Mass/Vol] 205 mg/dL 26-217 [facility] Comment on above: Performed at: [id number] [place], [place] [id number] Director: Raghav Murphy PhD, Phone: [phone] Immunoglobulin light chains. kappa.free [Mass/volume] in SerumOrdered By: Pete Erazo on 08-20-2022 Immunoglobulin light chains.kappa.free (S) [Mass/Vol] 89.6 mg/L 3.3-19.4 [facility] Immunoglobulin light chains. kappa.free/Immunoglobulin light chains.lambda.free [MassOrdered By: Pete Erazo on 08-20-2022 Immunoglobulin light chains.kappa.free/Immun oglobulin light chains.lambda.free (S) [Mass ratio] 2.08 0.26-1.65 [facility] Comment on above: Performed at: [id number] [place], [place] [id number] Director: Raghav Murphy PhD, Phone: [phone] Immunoglobulin light chains. lambda.free [Mass/volume] in Serum or PlasmaOrdered By: Pete Erazo on 08-20-2022 Immunoglobulin light chains.lambda.free [Mass/Vol] 43.1 mg/L 5.7-26.3 [facility] Leukocytes [#/volume] correc tiffanie for nucleated erythrocytes in Blood by Automated counOrdered By: Pete Erazo on 08-20-2022 WBC corrected for nucl RBC Auto (Bld) [#/Vol] 8.8 10*3/uL 3.8-11.6 [facility] Lymphocytes Auto (Bld) [#/Vo l]Ordered By: Ptee Erazo on 08-20-2022 Lymphocytes (Bld) [#/Vol] 1.1 10*3/uL 1.00-4.8 [facility] Lymphocytes/100 WBC Auto (Bl d)Ordered By: Pete Erazo on 08-20-2022 Lymphocytes/100 WBC (Bld) 12.0 % . [facility] MCH Auto (RBC) [Entitic mass ]Ordered By: Pete Erazo on 08-20-2022 MCH (RBC) [Entitic mass] 29.2 pg 24.7-34.3 [facility] MCHC Auto (RBC) [Mass/Vol]Or dered By: Pete Erazo on 08-20-2022 MCHC (RBC) [Mass/Vol] 33.0 g/dL 32.0-35.0 [facility] MCV Auto (RBC) [Entitic vol] Ordered By: Pete Erazo on 08-20-2022 MCV (RBC) [Entitic vol] 88.5 fL 80-100 [facility] Monocytes Auto (Bld) [#/Vol] Ordered By: Pete Erazo on 08-20-2022 Monocytes (Bld) [#/Vol] 0.8 10*3/uL 0.0-0.8 [facility] Monocytes/100 WBC Auto (Bld) Ordered By: Pete Erazo on 08-20-2022 Monocytes/100 WBC (Bld) 9.1 % . [facility] Neutrophils Auto (Bld) [#/Vo l]Ordered By: Pete Erazo on 08-20-2022 Neutrophils (Bld) [#/Vol] 6.9 10*3/uL 1.8-7.7 [facility] Neutrophils/100 WBC Auto (Bl d)Ordered By: Pete Erazo on 08-20-2022 Neutrophils/100 WBC (Bld) 78.1 % . [facility] No Panel InformationOrdered By: Pete Erazo on 08-20-2022 Estimated GFR () > 60 mL/Min [facility] Comment on above: GFR estimated refere nce range: According to KDOQI guidelines, <60 ml/min/1.73m2 is sufficient to diagnose a patient with chronic kidney disease. Pharmacy Creatinine Clearance (Chem 45.10 [facility] Protein Electrophoresis M-Hernando Not observed g/dL Not Observed [facility] Protein Electrophoresis Note See comment . [facility] Comment on above: Protein electrophore sis scan will follow via computer,mail, or transfusion aide delivery.Performed at: [facility] Director: Raghav Murphy PhD, Phone: [phone] Serum Immunofixation See comment . [facility] Comment on above: No monoclonality det ected. Nucleated erythrocytes [Pres ence] in Blood by Automated countOrdered By: Pete Erazo on 08-20-2022 Nucleated RBC Auto Ql (Bld) 0.0 /100{WBC} 0-0.5 [facility] Platelet mean volume Auto (B ld) [Entitic vol]Ordered By: Pete Erazo on 08-20-2022 Platelet mean volume (Bld) [Entitic vol] 7.3 fL 6.3-10.7 [facility] Platelets Auto (Bld) [#/Vol] Ordered By: Pete Erazo on 08-20-2022 Platelets (Bld) [#/Vol] 277 10*3/uL 150-450 [facility] Protein [Mass/volume] in Ser um or PlasmaOrdered By: Pete Erazo on 08-20-2022 Protein [Mass/Vol] 8.6 g/dL 6.1-7.9 [facility] Protein [Mass/Vol] 8.2 g/dL 6.0-8.5 [facility] RBC Auto (Bld) [#/Vol]Ordere d By: Pete Erazo on 08-20-2022 RBC (Bld) [#/Vol] 4.50 10*6/uL 3.60-5.00 [facility] Serum globulin measurement ( mass/volume)Ordered By: Pete Erazo on 08-20-2022 Globulin (S) [Mass/Vol] 4.8 g/dL 2.2-3.9 [facility] Serum or plasma alanine rebolledo otransferase measurement without P-5'-P (enzymatic activiOrdered By: Pete Erazo on 08-20-2022 ALT No additional P-5'-P [Catalytic activity/Vol] 18 U/L 10-60 [facility] Serum or plasma albumin/glob ulin mass ratioOrdered By: Pete Erazo on 08-20-2022 Albumin/Globulin [Mass ratio] 0.7 {ratio} 0.7-1.7 [facility] Serum or plasma alkaline vani sphatase measurement (enzymatic activity/volume)Ordered By: Pete Erazo on 08-20-2022 ALP [Catalytic activity/Vol] 83 U/L 32-92 [facility] Serum or plasma alpha 1 glob ulin measurement by electrophoresis (mass/volume)Ordered By: Pete Erazo on 08-20-2022 Alpha 1 globulin Elph [Mass/Vol] 0.3 g/dL 0.0-0.4 [facility] Serum or plasma alpha 2 glob ulin measurement by electrophoresis (mass/volume)Ordered By: Pete Erazo on 08-20-2022 Alpha 2 globulin Elph [Mass/Vol] 1.0 g/dL 0.4-1.0 [facility] Serum or plasma anion gap de terminationOrdered By: Pete Erazo on 08-20-2022 Anion gap [Moles/Vol] 10.0 mmol/L 6.0-15.0 [facility] Serum or plasma aspartate am inotransferase measurement (enzymatic activity/volume)Ordered By: Pete Erazo on 08-20-2022 AST [Catalytic activity/Vol] 23 U/L 10-42 [facility] Serum or plasma beta globuli n measurement by electrophoresis (mass/volume)Ordered By: Pete Erazo on 08-20-2022 Beta globulin Elph [Mass/Vol] 1.1 g/dL 0.7-1.3 [facility] Serum or plasma calcium demian urement (mass/volume)Ordered By: Pete Erazo on 08-20-2022 Calcium [Mass/Vol] 9.5 mg/dL 8.2-10.2 [facility] Serum or plasma chloride carson surement (moles/volume)Ordered By: Pete Erazo on 08-20-2022 Chloride [Moles/Vol] 106 mmol/L 95-114 [facility] Serum or plasma gamma globul in measurement by electrophoresis (mass/volume)Ordered By: Pete Erazo on 08-20-2022 Gamma globulin Elph [Mass/Vol] 2.5 g/dL 0.4-1.8 [facility] Serum or plasma glucose demian urement (mass/volume)Ordered By: Pete Erazo on 08-20-2022 Glucose [Mass/Vol] 105 mg/dL 70-100 [facility] Comment on above: ADA recommended refe rence rangeRandom Glucose Reference Range is dependent on time and content of last meal. Glucose of more than 200 mg/dL in a nonstressed, ambulatory subject supports the diagnosis of Diabetes Mellitus. Serum or plasma potassium me asurement (moles/volume)Ordered By: Pete Erazo on 08-20-2022 Potassium [Moles/Vol] 4.2 mmol/L 3.5-5.1 [facility] Serum or plasma sodium measu rement (moles/volume)Ordered By: Pete Erazo on 08-20-2022 Sodium [Moles/Vol] 138 mmol/L 136-146 [facility] Serum or plasma total biliru bin measurement (mass/volume)Ordered By: Pete Erazo on 08-20-2022 Bilirubin [Mass/Vol] 0.6 mg/dL 0.3-1.2 [facility] Serum or plasma total carbon dioxide measurement (moles/volume)Ordered By: Pete Erazo on 08-20-2022 CO2 [Moles/Vol] 26.2 mmol/L 22.0-30.0 [facility] Serum or plasma urea nitroge n measurement (mass/volume)Ordered By: Pete Erazo on 08-20-2022 Urea nitrogen [Mass/Vol] 13 mg/dL 9- [facility] WBC Auto (Bld) [#/Vol]Ordere d By: Pete Erazo on 08-20-2022 WBC (Bld) [#/Vol] 8.8 10*3/uL 3.8-11.6 [facility] Glucose Glucometer (BldC) [M ass/Vol]Ordered By: Lety Flynn on 05-16-2022 Glucose [Mass/Vol] 90 mg/dL [facility] Comment on above: Random Glucose Refer ence Range is dependent on time and content of last meal. Glucose of more than 200 mg/dL in a nonstressed, ambulatory subject supports the diagnosis of Diabetes Mellitus. Albumin [Mass/volume] in Ser um or PlasmaOrdered By: Lety Flynn on 05-10-2022 Albumin [Mass/Vol] 3.3 g/dL 2.9-4.4 [facility] Body fluid albumin measureme nt (mass/volume)Ordered By: Lety Flynn on 05-10-2022 Albumin (Body fld) [Mass/Vol] 3.6 g/dL 3.2-5.5 [facility] Creatinine and Glomerular fi ltration rate.predicted panel (S/P/Bld)Ordered By: Lety Flynn on 05-10-2022 Creatinine [Mass/Vol] 0.98 mg/dL 0.44-1.03 [facility] Estimated glomerular filtrat ion rate (GFR) non- AmericanOrdered By: Lety Flynn on 05-10-2022 GFR/1.73 sq M.predicted among non-blacks MDRD (S/P/Bld) [Vol rate/Area] 55 mL/Min [facility] Globulin Calc (S) [Mass/Vol] Ordered By: Lety Flynn on 05-10-2022 Globulin (S) [Mass/Vol] 4.7 g/dL [facility] IgA [Mass/volume] in Serum o r PlasmaOrdered By: Lety Flynn on 05-10-2022 IgA [Mass/Vol] 255 mg/dL 64-422 [facility] IgG [Mass/volume] in Serum o r PlasmaOrdered By: Lety Flynn on 05-10-2022 IgG [Mass/Vol] 2709 mg/dL 586-1602 [facility] IgM [Mass/volume] in Serum o r PlasmaOrdered By: Lety Flynn on 05-10-2022 IgM [Mass/Vol] 216 mg/dL 26-217 [facility] Comment on above: Performed at: [id number] [place] [id number] Director: Raghav Murphy PhD, Phone: [phone] Immunoglobulin light chains. kappa.free [Mass/volume] in SerumOrdered By: Lety Flynn on 05-10-2022 Immunoglobulin light chains.kappa.free (S) [Mass/Vol] 107.4 mg/L 3.3-19.4 [facility] Immunoglobulin light chains. kappa.free/Immunoglobulin light chains.lambda.free [MassOrdered By: Lety Flynn on 05-10-2022 Immunoglobulin light chains.kappa.free/Immun oglobulin light chains.lambda.free (S) [Mass ratio] 2.55 0.26-1.65 [facility] Comment on above: Performed at: [facility] [place] [id number] Director: Raghav Murphy PhD, Phone: [phone] Immunoglobulin light chains. lambda.free [Mass/volume] in Serum or PlasmaOrdered By: Lety Flynn on 05-10-2022 Immunoglobulin light chains.lambda.free [Mass/Vol] 42.2 mg/L 5.7-26.3 [facility] No Panel InformationOrdered By: Lety Flynn on 05-10-2022 Estimated GFR () > 60 mL/Min [facility] Comment on above: GFR estimated refere nce range: According to KDOQI guidelines, <60 ml/min/1.73m2 is sufficient to diagnose a patient with chronic kidney disease. Pharmacy Creatinine Clearance (Chem N/A [facility] Protein Electrophoresis M-Hernando Not observed g/dL Not Observed [facility] Protein Electrophoresis Note See comment . [facility] Comment on above: Protein electrophore sis scan will follow via computer,mail, or transfusion aide delivery.Performed at: [facility] [id number] Director: Raghav Murphy PhD, Phone: [phone] Protein [Mass/volume] in Ser um or PlasmaOrdered By: Leyt Flynn on 05-10-2022 Protein [Mass/Vol] 8.3 g/dL 6.1-7.9 [facility] Protein [Mass/Vol] 8.4 g/dL 6.0-8.5 [facility] Serum globulin measurement ( mass/volume)Ordered By: Lety Flynn on 05-10-2022 Globulin (S) [Mass/Vol] 5.1 g/dL 2.2-3.9 [facility] Serum or plasma alanine rebolledo otransferase measurement without P-5'-P (enzymatic activiOrdered By: Lety Flynn on 05-10-2022 ALT No additional P-5'-P [Catalytic activity/Vol] 16 U/L 10-60 [facility] Serum or plasma albumin/glob ulin mass ratioOrdered By: Lety Flynn on 05-10-2022 Albumin/Globulin [Mass ratio] 0.8 {ratio} [facility] Albumin/Globulin [Mass ratio] 0.6 {ratio} 0.7-1.7 [facility] Serum or plasma alkaline vani sphatase measurement (enzymatic activity/volume)Ordered By: Lety lFynn on 05-10-2022 ALP [Catalytic activity/Vol] 80 U/L 32-92 [facility] Serum or plasma alpha 1 glob ulin measurement by electrophoresis (mass/volume)Ordered By: Lety Flynn on 05-10-2022 Alpha 1 globulin Elph [Mass/Vol] 0.4 g/dL 0.0-0.4 [facility] Serum or plasma alpha 2 glob ulin measurement by electrophoresis (mass/volume)Ordered By: Lety Flynn on 05-10-2022 Alpha 2 globulin Elph [Mass/Vol] 1.0 g/dL 0.4-1.0 [facility] Serum or plasma anion gap de terminationOrdered By: Lety Flynn on 05-10-2022 Anion gap [Moles/Vol] 14.0 mmol/L 6.0-15.0 [facility] Serum or plasma aspartate am inotransferase measurement (enzymatic activity/volume)Ordered By: Lety Flynn on 05-10-2022 AST [Catalytic activity/Vol] 25 U/L [facility] Serum or plasma beta globuli n measurement by electrophoresis (mass/volume)Ordered By: Lety Flynn on 05-10-2022 Beta globulin Elph [Mass/Vol] 1.1 g/dL 0.7-1.3 [facility] Serum or plasma calcium demian urement (mass/volume)Ordered By: Lety Flynn on 05-10-2022 Calcium [Mass/Vol] 9.4 mg/dL 8.2-10.2 [facility] Serum or plasma chloride carson surement (moles/volume)Ordered By: Lety Flynn on 05-10-2022 Chloride [Moles/Vol] 102 mmol/L 95-114 [facility] Serum or plasma gamma globul in measurement by electrophoresis (mass/volume)Ordered By: Lety Flynn on 05-10-2022 Gamma globulin Elph [Mass/Vol] 2.7 g/dL 0.4-1.8 [facility] Serum or plasma glucose demian urement (mass/volume)Ordered By: Lety Flynn on 05-10-2022 Glucose [Mass/Vol] 104 mg/dL 70-100 [facility] Comment on above: ADA recommended refe rence rangeRandom Glucose Reference Range is dependent on time and content of last meal. Glucose of more than 200 mg/dL in a nonstressed, ambulatory subject supports the diagnosis of Diabetes Mellitus. Serum or plasma potassium me asurement (moles/volume)Ordered By: Lety Flynn on 05-10-2022 Potassium [Moles/Vol] 4.1 mmol/L 3.5-5.1 [facility] Serum or plasma sodium measu rement (moles/volume)Ordered By: Lety Flynn on 05-10-2022 Sodium [Moles/Vol] 136 mmol/L 136-146 [facility] Serum or plasma total biliru bin measurement (mass/volume)Ordered By: Lety Flynn on 05-10-2022 Bilirubin [Mass/Vol] 0.6 mg/dL 0.3-1.2 [facility] Serum or plasma total carbon dioxide measurement (moles/volume)Ordered By: Lety Flynn on 05-10-2022 CO2 [Moles/Vol] 24.1 mmol/L 22.0-30.0 [facility] Serum or plasma urea nitroge n measurement (mass/volume)Ordered By: Lety Flynn on 05-10-2022 Urea nitrogen [Mass/Vol] 10 mg/dL 04-27 [facility] Albumin [Mass/volume] in Ser um or PlasmaOrdered By: Lety Flynn on 05-02-2022 Albumin [Mass/Vol] 3.7 g/dL 3.2-5.5 [facility] Basophils Auto (Bld) [#/Vol] Ordered By: Lety Flynn on 05-02-2022 Basophils (Bld) [#/Vol] 0.1 10*3/uL 0.0-0.2 [facility] Basophils/100 WBC Auto (Bld) Ordered By: Lety Flynn on 05-02-2022 Basophils/100 WBC (Bld) 1.0 % . [facility] Blood hemoglobin measurement (mass/volume)Ordered By: Lety Flynn on 05-02-2022 Hemoglobin (Bld) [Mass/Vol] 13.4 g/dL 11.8-15.4 [facility] Blood leukocytes automated c ount (number/volume)Ordered By: Lety Flynn on 05-02-2022 WBC (Bld) [#/Vol] 7.6 10*3/uL 4.5-11.0 [facility] Cholesterol [Mass/volume] in Serum or PlasmaOrdered By: Lety Flynn on 05-02-2022 Cholesterol [Mass/Vol] 174 mg/dL 140-200 [facility] Comment on above: Chol less than 200 m g/dl low riskChol 201-239 mg/dl borderline riskChol 240 mg/dl and greater high risk Cholesterol in LDL Calc [Mas s/Vol]Ordered By: Lety Flynn on 05-02-2022 Cholesterol in LDL [Mass/Vol] 101 mg/dL 0-100 [facility] Comment on above: LDL ATP III CLASSIFI CATIONLDL less than 100 mg/dL OptimalLDL 100-129 mg/dL Near or above optimalLDL 130-159 mg/dL Borderline highLDL 160-189 mg/dL HighLDL greater than 189 mg/dL Very high Cholesterol in VLDL Calc [Ma ss/Vol]Ordered By: Lety Flynn on 05-02-2022 Cholesterol in VLDL [Mass/Vol] 14 mg/dL [facility] Creatinine and Glomerular fi ltration rate.predicted panel (S/P/Bld)Ordered By: Lety Flynn on 05-02-2022 Creatinine [Mass/Vol] 0.98 mg/dL 0.44-1.03 [facility] Eosinophils Auto (Bld) [#/Vo l]Ordered By: Lety Flynn on 05-02-2022 Eosinophils (Bld) [#/Vol] 0.1 10*3/uL 0.0-0.45 [facility] Eosinophils/100 WBC Auto (Bl d)Ordered By: Lety Flynn on 05-02-2022 Eosinophils/100 WBC (Bld) 1.1 % . [facility] Erythrocyte distribution wid th Auto (RBC) [Ratio]Ordered By: Lety Flynn on 05-02-2022 Erythrocyte distribution width (RBC) [Ratio] 14.3 % 11.9-15.3 [facility] Estimated glomerular filtrat ion rate (GFR) non- AmericanOrdered By: Leyt Flynn on 05-02-2022 GFR/1.73 sq M.predicted among non-blacks MDRD (S/P/Bld) [Vol rate/Area] 55 mL/Min [facility] Globulin Calc (S) [Mass/Vol] Ordered By: Lety Flynn on 05-02-2022 Globulin (S) [Mass/Vol] 5.0 g/dL [facility] Glucose mean value [Mass/vol ume] in Blood Estimated from glycated hemoglobinOrdered By: Lety Flynn on 05-02-2022 Average glucose Estimated from glycated hemoglobin (Bld) [Mass/Vol] 120 mg/dL [facility] Hematocrit Auto (Bld) [Volum e fraction]Ordered By: Lety Flynn on 05-02-2022 Hematocrit (Bld) [Volume fraction] 41.2 % 34.0-46.4 [facility] Hemoglobin A1c percentageOrd ered By: Lety Flynn on 05-02-2022 HbA1c (Bld) [Mass fraction] 5.8 % 4.3-5.6 [facility] Comment on above: Increased risk for d iabetes: 5.7 - 6.4diabetes: >6.4glycemic control for adults with diabetes: <7.0 Laboratory - Hematology and Cell countsOrdered By: Lety Flynn on 05-02-2022 Nucleated RBC/100 WBC (Bld) [Ratio] 0.2 % 0-0.5 [facility] Lymphocytes Auto (Bld) [#/Vo l]Ordered By: Lety Flynn on 05-02-2022 Lymphocytes (Bld) [#/Vol] 1.4 10*3/uL 1.00-4.8 [facility] Lymphocytes/100 WBC Auto (Bl d)Ordered By: Lety Flynn on 05-02-2022 Lymphocytes/100 WBC (Bld) 19.0 % . [facility] MCH Auto (RBC) [Entitic mass ]Ordered By: Lety Flynn on 05-02-2022 MCH (RBC) [Entitic mass] 28.9 pg 24.7-34.3 [facility] MCHC Auto (RBC) [Mass/Vol]Or dered By: Lety Flynn on 05-02-2022 MCHC (RBC) [Mass/Vol] 32.6 g/dL 32.0-35.0 [facility] MCV Auto (RBC) [Entitic vol] Ordered By: Lety Flynn on 05-02-2022 MCV (RBC) [Entitic vol] 88.5 fL 80-100 [facility] Monocytes Auto (Bld) [#/Vol] Ordered By: Lety Flynn on 05-02-2022 Monocytes (Bld) [#/Vol] 0.6 10*3/uL 0.0-0.8 [facility] Monocytes/100 WBC Auto (Bld) Ordered By: Lety Flynn on 05-02-2022 Monocytes/100 WBC (Bld) 7.6 % . [facility] Neutrophils Auto (Bld) [#/Vo l]Ordered By: Lety Flynn on 05-02-2022 Neutrophils (Bld) [#/Vol] 5.4 10*3/uL 1.8-7.7 [facility] Neutrophils/100 WBC Auto (Bl d)Ordered By: Lety Flynn on 05-02-2022 Neutrophils/100 WBC (Bld) 71.3 % . [facility] No Panel InformationOrdered By: Lety Flynn on 05-02-2022 Estimated GFR () > 60 mL/Min [facility] Comment on above: GFR estimated refere nce range: According to KDOQI guidelines, <60 ml/min/1.73m2 is sufficient to diagnose a patient with chronic kidney disease. Pharmacy Creatinine Clearance (Chem N/A [facility] Platelet mean volume Auto (B ld) [Entitic vol]Ordered By: Lety Flynn on 05-02-2022 Platelet mean volume (Bld) [Entitic vol] 8.0 fL 6.3-10.7 [facility] Platelets Auto (Bld) [#/Vol] Ordered By: Lety Flynn on 05-02-2022 Platelets (Bld) [#/Vol] 315 10*3/uL 150-450 [facility] Protein [Mass/volume] in Ser um or PlasmaOrdered By: Lety Flynn on 05-02-2022 Protein [Mass/Vol] 8.7 g/dL 6.1-7.9 [facility] RBC Auto (Bld) [#/Vol]Ordere d By: Lety Flynn on 05-02-2022 RBC (Bld) [#/Vol] 4.66 10*6/uL 3.60-5.00 [facility] Serum or plasma alanine rebolledo otransferase measurement without P-5'-P (enzymatic activiOrdered By: Lety Flynn on 05-02-2022 ALT No additional P-5'-P [Catalytic activity/Vol] 17 U/L 10-60 [facility] Serum or plasma albumin/glob ulin mass ratioOrdered By: Lety Flynn on 05-02-2022 Albumin/Globulin [Mass ratio] 0.7 {ratio} [facility] Serum or plasma alkaline vani sphatase measurement (enzymatic activity/volume)Ordered By: Lety Flynn on 05-02-2022 ALP [Catalytic activity/Vol] 87 U/L 32-92 [facility] Serum or plasma anion gap de terminationOrdered By: Lety Flynn on 05-02-2022 Anion gap [Moles/Vol] 12.3 mmol/L 6.0-15.0 [facility] Serum or plasma aspartate am inotransferase measurement (enzymatic activity/volume)Ordered By: Lety Flynn on 05-02-2022 AST [Catalytic activity/Vol] 24 U/L 10-42 [facility] Serum or plasma calcium demian urement (mass/volume)Ordered By: Lety Flynn on 05-02-2022 Calcium [Mass/Vol] 9.7 mg/dL 8.2-10.2 [facility] Serum or plasma chloride carson surement (moles/volume)Ordered By: Lety Flynn on 05-02-2022 Chloride [Moles/Vol] 101 mmol/L 95-114 [facility] Serum or plasma glucose demian urement (mass/volume)Ordered By: Lety Flynn on 05-02-2022 Glucose [Mass/Vol] 98 mg/dL 70-100 [facility] Comment on above: ADA recommended refe rence rangeRandom Glucose Reference Range is dependent on time and content of last meal. Glucose of more than 200 mg/dL in a nonstressed, ambulatory subject supports the diagnosis of Diabetes Mellitus. Serum or plasma high density lipoprotein (HDL) cholesterol measurementOrdered By: Lety Flynn on 05-02-2022 Cholesterol in HDL [Mass/Vol] 59 mg/dL 35-85 [facility] Comment on above: HDL CHOL ATP-III CLA SSIFICATION Cardiovascular RiskHDL > or equal to 60 mg/dL LOWHDL < 40 mg/dL HIGH Serum or plasma potassium me asurement (moles/volume)Ordered By: Lety Flynn on 05-02-2022 Potassium [Moles/Vol] 3.8 mmol/L 3.5-5.1 [facility] Serum or plasma sodium measu rement (moles/volume)Ordered By: Lety Flynn on 05-02-2022 Sodium [Moles/Vol] 135 mmol/L 136-146 [facility] Serum or plasma total biliru bin measurement (mass/volume)Ordered By: Lety Flynn on 05-02-2022 Bilirubin [Mass/Vol] 0.5 mg/dL 0.3-1.2 [facility] Serum or plasma total carbon dioxide measurement (moles/volume)Ordered By: Lety Flynn on 05-02-2022 CO2 [Moles/Vol] 25.5 mmol/L 22.0-30.0 [facility] Serum or plasma total choles terol/high density lipoprotein (HDL) cholesterol mass ratOrdered By: Lety Flynn on 05-02-2022 Cholesterol.total/Kiki sterol in HDL [Mass ratio] 2.9 {ratio} <5.0 [facility] Serum or plasma urea nitroge n measurement (mass/volume)Ordered By: Lety Flynn on 05-02-2022 Urea nitrogen [Mass/Vol] 17 mg/dL 9-23 [facility] TSH DL <= 0.005 mIU/L QnOrde red By: Lety Flynn on 05-02-2022 TSH Qn 2.34 m[IU]/L 0.45-5.33 [facility] Triglyceride [Mass/volume] i n Serum or PlasmaOrdered By: Lety Flynn on 05-02-2022 Triglyceride [Mass/Vol] 72 mg/dL 35-149 [facility] Comment on above: TRIG ATP III CLASSIF ICATIONTRIG less than 150 mg/dL NormalTRIG 150-199 mg/dL Borderline highTRIG 200-500 mg/dL High TRIG greater than 500 mg/dL Very highStandard traceable to the Center for Disease Conrtrol and Prevention (CDC) test method. Vital Signs Date Time Vital Sign Value Performing Clinician Facility 01-08-2025 13:56-0400 Body weight 63.5 kg Petra DeWilde DO Work Phone: [facility] 01-08-2025 13:56-0400 Diastolic blood pressure 65 mm[Hg] Petra DeWilde DO Work Phone: [facility] 01-08-2025 13:56-0400 Heart rate 65 /min Petra DeWilde DO Work Phone: [facility] 01-08-2025 13:56-0400 Respiratory rate 18 /min Petra DeWilde DO Work Phone: [facility] 01-08-2025 13:56-0400 SaO2% (BldA) [Mass fraction] 97 % Petra DeWilde DO Work Phone: [facility] 01-08-2025 13:56-0400 Systolic blood pressure 127 mm[Hg] Petra DeWilde DO Work Phone: [facility] 01-01-2025 11:38-0400 Body height 162.56 cm Petra DeWilde DO Work Phone: [facility] 01-01-2025 11:38-0400 Body mass index (BMI) [Ratio] 24 kg/m2 Petra DeWilde DO Work Phone: [facility] 01-01-2025 11:38-0400 Body temperature 97.7 [degF] Petra DeWilde DO Work Phone: [facility] 01-01-2025 11:38-0400 Body weight 63.5 kg Petra DeWilde DO Work Phone: [facility] 01-01-2025 11:38-0400 Diastolic blood pressure 73 mm[Hg] Petra DeWilde DO Work Phone: [facility] 01-01-2025 11:38-0400 Heart rate 87 /min Petra DeWilde DO Work Phone: [facility] 01-01-2025 11:38-0400 Respiratory rate 16 /min Petra DeWilde DO Work Phone: [facility] 01-01-2025 11:38-0400 SaO2% (BldA) [Mass fraction] 95 % Petra DeWilde DO Work Phone: [facility] 01-01-2025 11:38-0400 Systolic blood pressure 128 mm[Hg] Petra DeWilde DO Work Phone: [facility] 10-21-2024 10:59-0400 Body height 162.56 cm Petra DeWilde DO Work Phone: [facility] 10-21-2024 10:59-0400 Body mass index (BMI) [Ratio] 23 kg/m2 Petra DeWilde DO Work Phone: [facility] 10-21-2024 10:59-0400 Body weight 60.78 kg Petra DeWilde DO Work Phone: [facility] 10-21-2024 10:59-0400 Diastolic blood pressure 70 mm[Hg] Petra DeWilde DO Work Phone: [facility] 10-21-2024 10:59-0400 Heart rate 67 /min Petra DeWilde DO Work Phone: [facility] 10-21-2024 10:59-0400 SaO2% (BldA) [Mass fraction] 96 % Petra DeWilde DO Work Phone: [facility] 10-21-2024 10:59-0400 Systolic blood pressure 102 mm[Hg] Petra DeWilde DO Work Phone: [facility] 07-22-2024 11:12-0500 Body height 162.56 cm Petra DeWilde DO Work Phone: [facility] 07-22-2024 11:12-0500 Body mass index (BMI) [Ratio] 22.5 kg/m2 Petra DeWilde DO Work Phone: [phone])[phone] [place] [address] 07-22-2024 11:12-0500 Body weight 59.59 kg Petra DeWilde DO Work Phone: [facility] 07-22-2024 11:12-0500 Diastolic blood pressure 70 mm[Hg] Petra DeWilde DO Work Phone: [facility] 07-22-2024 11:12-0500 Heart rate 93 /min Petra DeWilde DO Work Phone: [facility] 07-22-2024 11:12-0500 Respiratory rate 18 /min Petra DeWilde DO Work Phone: [facility] 07-22-2024 11:12-0500 SaO2% (BldA) [Mass fraction] 97 % Petra DeWilde DO Work Phone: [facility] 07-22-2024 11:12-0500 Systolic blood pressure 120 mm[Hg] Petra DeWilde DO Work Phone: [facility] 04-07-2024 11:40-0400 Body height 162.56 cm SARA Flynn Work Phone: [facility] 04-07-2024 11:40-0400 Body mass index (BMI) [Ratio] 19.4 kg/m2 DNP Lety Kaple Work Phone: [facility] 04-07-2024 11:40-0400 Body temperature 97.3 [degF] DNP Lety Triplettle Work Phone: [facility] 04-07-2024 11:40-0400 Body weight 51.42 kg DNP Lety Triplettle Work Phone: [facility] 04-07-2024 11:40-0400 Diastolic blood pressure 65 mm[Hg] DNP Ltey Kaple Work Phone: [facility] 04-07-2024 11:40-0400 Heart rate 90 /min DNP Lety Triplettle Work Phone: [facility] 04-07-2024 11:40-0400 Respiratory rate 20 /min DNP Lety Triplettle Work Phone: [facility] 04-07-2024 11:40-0400 SaO2% (BldA) [Mass fraction] 95 % DNP Lety Flynn Work Phone: [facility] 04-07-2024 11:40-0400 Systolic blood pressure 122 mm[Hg] DNP Lety Triplettle Work Phone: [facility] 02-27-2024 14:34-0400 Body height 162.56 cm [facility] 02-27-2024 14:34-0400 Body mass index (BMI) [Ratio] 19.1 kg/m2 [facility] 02-27-2024 14:34-0400 Body weight 50.43 kg [facility] 02-27-2024 14:34-0400 Diastolic blood pressure 70 mm[Hg] [facility] 02-27-2024 14:34-0400 Heart rate 77 /min [facility] 02-27-2024 14:34-0400 Respiratory rate 18 /min [facility] 02-27-2024 14:34-0400 SaO2% (BldA) [Mass fraction] 95 % [facility] 02-27-2024 14:34-0400 Systolic blood pressure 120 mm[Hg] [facility] 02-18-2024 11:25-0400 Blood Pressure Location Cinthya Orzech [facility] 02-18-2024 11:25-0400 Diastolic blood pressure 68 mm[Hg] Cinthya Orzech [facility] 02-18-2024 11:25-0400 Heart rate 68 /min Cinthya Orzech [facility] 02-18-2024 11:25-0400 Respiratory rate 16 /min Cinthya Orzech [facility] 02-18-2024 11:25-0400 Systolic blood pressure 110 mm[Hg] Cinthya Orzech [facility] 12-10-2023 10:40-0400 Body height 162.56 cm [facility] 12-10-2023 10:40-0400 Body mass index (BMI) [Ratio] 18.9 kg/m2 [facility] 12-10-2023 10:40-0400 Body weight 49.98 kg [facility] 12-10-2023 10:40-0400 Diastolic blood pressure 80 mm[Hg] [facility] 12-10-2023 10:40-0400 Heart rate 96 /min [facility] 12-10-2023 10:40-0400 Respiratory rate 18 /min [facility] 12-10-2023 10:40-0400 SaO2% (BldA) [Mass fraction] 93 % [facility] 12-10-2023 10:40-0400 Systolic blood pressure 117 mm[Hg] [facility] 07-02-2023 13:15-0500 Body height 162.56 cm Imad Asaad Other [facility] Other 07-02-2023 13:15-0500 Body mass index (BMI) [Ratio] 19.57 kg/m2 Imad Asaad Other [facility] Other 07-02-2023 13:15-0500 Body weight 51.71 kg Imad Asaad Other [facility] Other 07-02-2023 13:15-0500 Diastolic blood pressure 76 mm[Hg] Imad Asaad Other [facility] Other 07-02-2023 13:15-0500 Systolic blood pressure 124 mm[Hg] Imad Asaad Other [facility] Other 05-20-2023 13:29-0400 Blood Pressure Location Garcia TURNER [facility] 05-20-2023 13:29-0400 Diastolic blood pressure 64 mm[Hg] Garcia TURNER [facility] 05-20-2023 13:29-0400 Heart rate 88 /min Garcia TURNER [facility] 05-20-2023 13:29-0400 Respiratory rate 16 /min Garcia TURNER [facility] 05-20-2023 13:29-0400 Systolic blood pressure 111 mm[Hg] Garcia TURNER [facility] 05-17-2023 15:26-0400 Body temperature 98.4 [degF] DNP Lety Gee Work Phone: [facility] 05-17-2023 15:26-0400 Body weight 53.07 kg DNP Lety Triplettle Work Phone: [facility] 05-17-2023 15:26-0400 Diastolic blood pressure 62 mm[Hg] DNP Lety Kaple Work Phone: [facility] 05-17-2023 15:26-0400 Heart rate 114 /min DNP Lety Triplettle Work Phone: [facility] 05-17-2023 15:26-0400 Respiratory rate 16 /min DNP Lety Kaple Work Phone: [facility] 05-17-2023 15:26-0400 SaO2% (BldA) [Mass fraction] 92 % DNP Lety Triplettle Work Phone: [facility] 05-17-2023 15:26-0400 Systolic blood pressure 119 mm[Hg] DNP Lety Triplettle Work Phone: [facility] 04-30-2023 14:30-0400 Body height 162.56 cm Lety Kaportega Other [facility] Other 04-30-2023 14:30-0400 Body mass index (BMI) [Ratio] 21.63 kg/m2 Lety Gee Other [facility] Other 04-30-2023 14:30-0400 Body temperature 100.2 [degF] Lety Gee Other [facility] Other 04-30-2023 14:30-0400 Body weight 57.15 kg Lety Triplettortega Other [facility] Other 04-30-2023 14:30-0400 Diastolic blood pressure 60 mm[Hg] Lety Flynn Other [facility] Other 04-30-2023 14:30-0400 Respiratory rate 18 /min Lety Kaple Other [facility] Other 04-30-2023 14:30-0400 SaO2% (BldA) [Mass fraction] 98 % Lety Kaple Other [facility] Other 04-30-2023 14:30-0400 Systolic blood pressure 118 mm[Hg] Lety Kaple Other [facility] Other 04-12-2023 19:27-0400 Diastolic blood pressure 77 mm[Hg] DNP Lety Kaple Work Phone: [facility] 04-12-2023 19:27-0400 Heart rate 96 /min DNP Lety Kaple Work Phone: [facility] 04-12-2023 19:27-0400 Respiratory rate 18 /min DNP Lety Kaple Work Phone: [facility] 04-12-2023 19:27-0400 SaO2% (BldA) [Mass fraction] 94 % DNP Lety Kaple Work Phone: [facility] 04-12-2023 19:27-0400 Systolic blood pressure 162 mm[Hg] DNP Lety Kaple Work Phone: [facility] 04-12-2023 13:11-0400 Body height 165.1 cm DNP Lety Kaple Work Phone: [facility] 04-12-2023 13:11-0400 Body temperature 97.6 [degF] DNP Lety Kaple Work Phone: [facility] 04-12-2023 13:11-0400 Body weight 57.7 kg DNP Lety Kaple Work Phone: [facility] 04-12-2023 12:15-0400 Body height 162.56 cm Lety Flynn Other [facility] Other 04-12-2023 12:15-0400 Body mass index (BMI) [Ratio] 21.63 kg/m2 Lety Flynn Other [facility] Other 04-12-2023 12:15-0400 Body weight 57.15 kg Lety Gee Other [facility] Other 04-12-2023 12:15-0400 Diastolic blood pressure 60 mm[Hg] Lety Flynn Other [facility] Other 04-12-2023 12:15-0400 Respiratory rate 18 /min Lety Flynn Other [facility] Other 04-12-2023 12:15-0400 SaO2% (BldA) [Mass fraction] 97 % Letyjaimee Flnyn Other [facility] Other 04-12-2023 12:15-0400 Systolic blood pressure 100 mm[Hg] Lety Flynn Other [facility] Other 02-26-2023 09:30-0400 Body height 162.56 cm Cornel Olexa Other [facility] Other 02-26-2023 09:30-0400 Body mass index (BMI) [Ratio] 24.54 kg/m2 Cornel Olexa Other [facility] Other 02-26-2023 09:30-0400 Body weight 64.86 kg Cornel Olexa Other [facility] Other 01-03-2023 09:15-0400 Body height 162.56 cm Lety Gee Other [facility] Other 01-03-2023 09:15-0400 Body mass index (BMI) [Ratio] 24.68 kg/m2 Lety Flynn Other [facility] Other 01-03-2023 09:15-0400 Body weight 65.23 kg Lety Gee Other [facility] Other 01-03-2023 09:15-0400 Diastolic blood pressure 60 mm[Hg] Lety Flynn Other [facility] Other 01-03-2023 09:15-0400 Respiratory rate 18 /min Lety Flynn Other [facility] Other 01-03-2023 09:15-0400 SaO2% (BldA) [Mass fraction] 96 % Letyjaimee Flynn Other [facility] Other 01-03-2023 09:15-0400 Systolic blood pressure 120 mm[Hg] Lety Flynn Other [facility] Other 11-05-2022 14:00-0400 Body height 162.56 cm Laron Gomes Other [facility] Other 11-05-2022 14:00-0400 Body mass index (BMI) [Ratio] 24.54 kg/m2 Laron Gomes Other [facility] Other 11-05-2022 14:00-0400 Body temperature 97.1 [degF] Laron Gomes Other [facility] Other 11-05-2022 14:00-0400 Body weight 64.86 kg Laron Benderno Other [facility] Other 11-05-2022 14:00-0400 Diastolic blood pressure 70 mm[Hg] Laron Benderno Other [facility] Other 11-05-2022 14:00-0400 Respiratory rate 20 /min Laron Benderno Other [facility] Other 11-05-2022 14:00-0400 SaO2% (BldA) [Mass fraction] 95 % Laron Gomes Other [facility] Other 11-05-2022 14:00-0400 Systolic blood pressure 150 mm[Hg] Laron Benderno Other [facility] Other 09-14-2022 13:55-0500 Diastolic blood pressure 75 mm[Hg] DNP Lety Gee Work Phone: [facility] 09-14-2022 13:55-0500 Heart rate 62 /min DNP Lety Flynn Work Phone: [facility] 09-14-2022 13:55-0500 Systolic blood pressure 145 mm[Hg] DNP Lety Gee Work Phone: [facility] 09-03-2022 16:15-0500 Body height 162.56 cm Lety Flynn Other [facility] [facility] Other 09-03-2022 16:15-0500 Body mass index (BMI) [Ratio] 24.18 kg/m2 Lety Triplettle Other [facility] Other 09-03-2022 16:15-0500 Body weight 63.91 kg Lety Triplettle Other [facility] Other 09-03-2022 16:15-0500 Diastolic blood pressure 78 mm[Hg] Lety Kaple Other [facility] Other 09-03-2022 16:15-0500 Respiratory rate 20 /min Lety Kaple Other [facility] Other 09-03-2022 16:15-0500 SaO2% (BldA) [Mass fraction] 98 % Lety Triplettortega Other [facility] Other 09-03-2022 16:15-0500 Systolic blood pressure 122 mm[Hg] Lety Triplettle Other [facility] Other 08-24-2022 11:16-0500 Body temperature 97.8 [degF] DNP Elty Kaple Work Phone: [facility] 08-24-2022 11:16-0500 Body weight 97.2 kg DNP Lety Kaple Work Phone: [facility] 08-24-2022 11:16-0500 Diastolic blood pressure 68 mm[Hg] DNP Lety Kaple Work Phone: [facility] 08-24-2022 11:16-0500 Heart rate 86 /min DNP Lety Kaple Work Phone: [facility] 08-24-2022 11:16-0500 Respiratory rate 16 /min DNP Lety Kaple Work Phone: [facility] 08-24-2022 11:16-0500 SaO2% (BldA) [Mass fraction] 95 % DNP Lety Kaple Work Phone: [facility] 08-24-2022 11:16-0500 Systolic blood pressure 137 mm[Hg] DNP Lety Kaple Work Phone: [facility] 07-11-2022 14:34-0500 Body height 165.1 cm DNP Lety Kaple Work Phone: [facility] 07-11-2022 14:34-0500 Body mass index (BMI) [Ratio] 22.6 kg/m2 DNP Lety Kaple Work Phone: [facility] 07-11-2022 14:34-0500 Body weight 61.68 kg DNP Lety Kaple Work Phone: 6(113)[phone] [place] [address] 07-11-2022 14:28-0500 Body temperature 98.1 [degF] DNP Lety Kaple Work Phone: [facility] 07-11-2022 14:28-0500 Diastolic blood pressure 76 mm[Hg] DNP Lety Kaple Work Phone: [facility] 07-11-2022 14:28-0500 Heart rate 87 /min DNP Lety Kaple Work Phone: [facility] 07-11-2022 14:28-0500 Respiratory rate 18 /min DNP Lety Kaple Work Phone: [facility] 07-11-2022 14:28-0500 Systolic blood pressure 145 mm[Hg] DNP Lety Kaple Work Phone: [facility] 06-27-2022 14:33-0500 Body height 165.1 cm DNP Lety Kaple Work Phone: 5([phone])[phone] [place] [address] 06-27-2022 14:33-0500 Body mass index (BMI) [Ratio] 22.6 kg/m2 SARA Flynn Work Phone: [facility] 06-27-2022 14:33-0500 Body weight 61.68 kg DNP Lety Flynn Work Phone: [facility] 06-18-2022 12:30-0500 Body height 162.56 cm Laron Benderno Other [facility] Other 06-18-2022 12:30-0500 Body mass index (BMI) [Ratio] 23.34 kg/m2 Christjoseer Mireya Other [facility] Other 06-18-2022 12:30-0500 Body temperature 97.6 [degF] Laron Pottsdano Other [facility] Other 06-18-2022 12:30-0500 Body weight 61.69 kg Hamzaher Mireya Other [facility] Other 06-18-2022 12:30-0500 Diastolic blood pressure 76 mm[Hg] Hamzaher Mireya Other [facility] Other 06-18-2022 12:30-0500 Respiratory rate 20 /min Christjoseer Mireya Other [facility] Other 06-18-2022 12:30-0500 SaO2% (BldA) [Mass fraction] 97 % Hamzaher Mireya Other [facility] Other 06-18-2022 12:30-0500 Systolic blood pressure 128 mm[Hg] Hamzaher Mireya Other [facility] Other 06-12-2022 11:45-0500 Body height 162.56 cm Lety Flynn Other [facility] Other 06-12-2022 11:45-0500 Body mass index (BMI) [Ratio] 23.67 kg/m2 Lety Flynn Other [facility] Other 06-12-2022 11:45-0500 Body weight 62.55 kg Lety Flynn Other [facility] Other 06-12-2022 11:45-0500 Diastolic blood pressure 60 mm[Hg] Lety Flynn Other [facility] Other 06-12-2022 11:45-0500 Respiratory rate 18 /min Lety Flynn Other [facility] Other 06-12-2022 11:45-0500 SaO2% (BldA) [Mass fraction] 98 % Lety Flynn Other [facility] Other 06-12-2022 11:45-0500 Systolic blood pressure 110 mm[Hg] Lety Flynn Other [facility] Other 06-04-2022 14:40-0400 Body height 162.56 cm Mckenzie Bates Other [facility] Other 06-04-2022 14:40-0400 Body mass index (BMI) [Ratio] 23.17 kg/m2 Mckenzie Bates Other [facility] Other 06-04-2022 14:40-0400 Body temperature 98.6 [degF] Mckenzie Bates Other [facility] Other 06-04-2022 14:40-0400 Body weight 61.24 kg Mckenzie Bates Other [facility] Other 06-04-2022 14:40-0400 Respiratory rate 18 /min Mckenzie Bates Other [facility] Other 06-04-2022 14:40-0400 SaO2% (BldA) [Mass fraction] 90 % Mckenzie Bates Other [facility] Other 05-18-2022 11:21-0400 Body temperature 98 [degF] DNP Lety Kaple Work Phone: [facility] 05-18-2022 11:21-0400 Body weight 63.18 kg DNP Lety Kaple Work Phone: [facility] 05-18-2022 11:21-0400 Diastolic blood pressure 75 mm[Hg] DNP Lety Kaple Work Phone: [facility] 05-18-2022 11:21-0400 Heart rate 76 /min DNP Lety Kaple Work Phone: [facility] 05-18-2022 11:21-0400 Respiratory rate 20 /min DNP Lety Kaple Work Phone: [facility] 05-18-2022 11:21-0400 SaO2% (BldA) [Mass fraction] 96 % DNP Lety Kaple Work Phone: [facility] 05-18-2022 11:21-0400 Systolic blood pressure 139 mm[Hg] DNP Lety Kaple Work Phone: [facility] 05-18-2022 11:04-0400 Body height 165.1 cm SARA Lety Triplettortega Work Phone: [facility] 05-02-2022 14:15-0400 Body height 162.56 cm Lety Gee Other [facility] Other 05-02-2022 14:15-0400 Body mass index (BMI) [Ratio] 24.01 kg/m2 Lety Gee Other [facility] Other 05-02-2022 14:15-0400 Body temperature 97.1 [degF] Lety Gee Other [facility] Other 05-02-2022 14:15-0400 Body weight 63.46 kg Lety Gee Other [facility] Other 05-02-2022 14:15-0400 Diastolic blood pressure 60 mm[Hg] Leyt Kaportega Other [facility] Other 05-02-2022 14:15-0400 Respiratory rate 18 /min Lety Gee Other [facility] Other 05-02-2022 14:15-0400 SaO2% (BldA) [Mass fraction] 95 % Lety Gee Other [facility] Other 05-02-2022 14:15-0400 Systolic blood pressure 110 mm[Hg] Lety Flynn Other [facility] Other 11-06-2021 14:15-0400 Body height 162.56 cm Laron Gomes Other [facility] Other 11-06-2021 14:15-0400 Body mass index (BMI) [Ratio] 24.03 kg/m2 Laron Benderno Other [facility] Other 11-06-2021 14:15-0400 Body temperature 96.7 [degF] Laron Pottsdano Other [facility] Other 11-06-2021 14:15-0400 Body weight 63.5 kg Laron Pottsdano Other [facility] Other 11-06-2021 14:15-0400 Diastolic blood pressure 78 mm[Hg] Laron Pottsdano Other [facility] Other 11-06-2021 14:15-0400 Respiratory rate 20 /min Laron Pottsdano Other [facility] Other 11-06-2021 14:15-0400 SaO2% (BldA) [Mass fraction] 95 % Laron Pottsdano Other [facility] Other 11-06-2021 14:15-0400 Systolic blood pressure 142 mm[Hg] Stewbrigette Pottsdano Other [facility] Other 05-30-2021 12:00-0400 Body height 162.56 cm Lety Flynn Other [facility] Other 05-30-2021 12:00-0400 Body mass index (BMI) [Ratio] 24.37 kg/m2 Lety Flynn Other [facility] Other 05-30-2021 12:00-0400 Body temperature 97 [degF] Lety Kaple Other [facility] Other 05-30-2021 12:00-0400 Body weight 64.41 kg Lety Triplettortega Other [facility] Other 05-30-2021 12:00-0400 Diastolic blood pressure 60 mm[Hg] Lety Uzielle Other [facility] Other 05-30-2021 12:00-0400 Respiratory rate 18 /min Lety Kaple Other [facility] Other 05-30-2021 12:00-0400 SaO2% (BldA) [Mass fraction] 98 % Lety Uzielle Other [facility] Other 05-30-2021 12:00-0400 Systolic blood pressure 100 mm[Hg] Lety Uzielle Other [facility] Other 04-28-2021 12:30-0400 Body height 162.56 cm Lety Kaportega Other [facility] Other 04-28-2021 12:30-0400 Body temperature 97.6 [degF] Lety Gee Other [facility] Other 04-28-2021 12:30-0400 Diastolic blood pressure 66 mm[Hg] Lety Uzielle Other [facility] Other 04-28-2021 12:30-0400 Respiratory rate 18 /min Lety Uzielle Other [facility] Other 04-28-2021 12:30-0400 SaO2% (BldA) [Mass fraction] 97 % Lety Gee Other [facility] [employer] Other 04-28-2021 12:30-0400 Systolic blood pressure 111 mm[Hg] Lety Gee Other [facility] [employer] Other Encounters Encounter Date Encounter Type Care Provider Facility Start: 01-08-2025 Registered Recurring Petra D [facility] Work [facility]: Start: 01-08-2025 End: 01-08-2025 ambulatory Petra DeWilde DO Work Phone: [facility] Work Phone: Start: 01-08-2025 End: 01-08-2025 Patient encounter procedure Petra DeWilde DO Work Phone: [facility] Work Phone: Start: 01-01-2025 End: 01-01-2025 ambulatory Petra DeWilde DO Work Phone: [facility] Work Phone: Start: 01-01-2025 End: 01-01-2025 Patient encounter procedure Petra DeWilde DO Work Phone: [facility] Work Phone: Start: 12-17-2024 Registered Recurring Petra D eWilde DO Work Phone: [facility] Work Phone: Start: 12-17-2024 End: 12-17-2024 Patient encounter procedure Petra DeWilde DO Work Phone: [facility] Start: 12-17-2024 End: 12-17-2024 ambulatory Petra DeWilde Facility:[facility] Start: 12-17-2024 End: 12-21-2024 External Result Encounter Pete Erazo DO Work Phone: [facility] Unsolicited Start: 12-17-2024 End: 12-21-2024 External Result Encounter Pete Erazo DO Work Phone: [facility] External Department Unsolicited Start: 10-21-2024 End: 10-21-2024 ambulatory Petra DeWilde DO Work Phone: [facility] Work Phone: Start: 10-21-2024 End: 10-21-2024 Patient encounter procedure Petra DeWilde DO Work Phone: [facility] Work Phone: Start: 07-24-2024 End: 07-24-2024 ambulatory Petra DeWilde Facility:[facility] Start: 07-24-2024 End: 07-24-2024 Patient encounter procedure Petra DeWilde DO Work Phone: [facility] Start: 07-22-2024 End: 07-22-2024 Patient encounter procedure Petra DeWilde DO Work Phone: [facility] [place] Work Phone: Start: 07-22-2024 End: 07-22-2024 ambulatory Petra DeWilde Facility:[facility] Start: 07-22-2024 End: 07-22-2024 Patient encounter procedure Petra DeWilde DO Work Phone: [facility] Work Phone: Start: 04-07-2024 End: 04-07-2024 ambulatory DNP Lety Gee Work Phone: [facility] Work Phone: Start: 04-07-2024 End: 04-07-2024 Patient encounter procedure DNP Lety Flynn Work Phone: [facility] Work Phone: Start: 04-01-2024 Non-patient / Non-visit DNP Lety Flynn Work Phone: [facility] [place] Work Phone: Start: 03-03-2024 End: 03-03-2024 Patient encounter procedure DNP Lety Flynn Work Phone: [facility] Start: 03-03-2024 End: 03-03-2024 ambulatory DNP Lety Flynn Work Phone: [facility] Work Phone: Start: 02-27-2024 End: 02-27-2024 ambulatory DNP Lety Flynn Work Phone: [facility] Work Phone: Start: 02-27-2024 End: 02-27-2024 Patient encounter procedure [facility] [place] Work Phone: Start: 02-18-2024 End: 02-18-2024 ambulatory Cinthya X Orzech Facility:[facility] Start: 02-18-2024 End: 02-18-2024 Lab Drop off Cinthya X Orzech [facility] Start: 02-18-2024 End: 02-18-2024 ambulatory Cinthya X Orzech [facility] Start: 02-18-2024 End: 02-18-2024 Patient encounter procedure Cinthya X Orzech [facility] Start: 02-04-2024 End: 02-04-2024 ambulatory Cinthya X Orzech Facility:[facility] [place] Start: 02-04-2024 End: 02-04-2024 Patient encounter procedure [facility]inth[facility] X Orzech [facility] Start: 01-14-2024 End: 01-14-2024 ambulatory Cinthya X Orzech Facility:[facility] Start: 01-14-2024 End: 01-14-2024 Patient encounter procedure Cinthya X Orzech [facility] Start: 12-17-2023 End: 12-17-2023 ambulatory Cinthya X Orzech Facility:[facility] Start: 12-17-2023 End: 12-17-2023 Patient encounter procedure Cinthya X Orzech [facility] Start: 12-10-2023 End: 12-10-[address] [facility] Work Phone: Start: 12-10-2023 End: 12-10-2023 Patient encounter procedure [facility] [place] Work Phone: Start: 12-06-2023 Non-patient / Non-visit [facility] Work Phone: Start: 09-17-2023 End: 09-17-2023 ambulatory Garcia TURNER Facility:[facility] Start: 09-17-2023 End: 09-17-2023 Patient encounter procedure Garcia TURNER [facility] Start: 09-09-2023 End: 09-09-2023 ambulatory Lety Flynn Other [facility] [employer] Other Start: 09-09-2023 Telephone encounter Lety De La Torre [facility] Start: 09-05-2023 End: 09-05-2023 ambulatory Lety Flynn Other [facility] Other Start: 09-05-2023 Telephone encounter Lety De [facility] [place] Start: 08-12-2023 End: 08-12-2023 ambulatory Garcia TURNER Facility:[facility] Start: 08-12-2023 End: 08-12-2023 Patient encounter procedure Garcia TURNER [facility] Start: 07-23-2023 End: 07-23-2023 ambulatory Lety Flynn Other [facility] Other Start: 07-23-2023 Telephone encounter Lety De La Torre [facility] [place] Start: 07-02-2023 End: 07-02-2023 ambulatory Imad Asaad Other [facility] Other Start: 07-02-2023 [facility] visit new patient Imad Asaad [facility] Start: 06-11-2023 End: 06-11-2023 ambulatory Garcia TURNER Facility:[facility] Start: 06-11-2023 End: 06-11-2023 Patient encounter procedure Garcia TURNER [facility] Start: 05-20-2023 End: 05-20-2023 Lab Drop off Garcia TURNER [facility] Start: 05-20-2023 Telephone encounter Joshua Watts [facility] [employer] 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 [place] Start: 05-17-2023 End: 05-17-2023 Registered Recurring DNP Lety Flynn Work Phone: [facility] Work Phone: Start: 05-17-2023 End: 05-17-2023 ambulatory DNP Lety Flynn Work Phone: [facility] Work Phone: Start: 05-17-2023 Telephone encounter Lety De La Torre [facility] [place] Start: 05-16-2023 End: 05-16-2023 ambulatory Lety Kaportega Other [facility] Other Start: 05-16-2023 Telephone encounter Lety De La Torre [facility] [place] Start: 05-15-2023 End: 05-15-2023 ambulatory DNP Lety Flynn Work Phone: [facility] Work Phone: Start: 05-15-2023 End: 05-15-2023 Patient encounter procedure DNP Lety Flynn Work Phone: [facility] [place] Work Phone: Start: 05-13-2023 End: 05-13-2023 ambulatory Lety Kaportega Other [facility] Other Start: 05-13-2023 Telephone encounter Lety De La Torre [facility] [place] Start: 05-09-2023 End: 05-09-2023 ambulatory Lety Gee Other [facility] Other Start: 05-09-2023 Telephone encounter Lety De La Torre [facility] [place] Start: 05-06-2023 End: 05-06-2023 ambulatory Lety Kaple Other [facility] Other Start: 05-06-2023 Telephone encounter Lety Uzielle F [facility] Start: 05-01-2023 Telephone encounter Lety Uzielle [facility] Start: 05-01-2023 End: 05-01-2023 ambulatory DNP Lety Triplettle Work Phone: [facility] Work Phone: Start: 05-01-2023 End: 05-01-2023 Patient encounter procedure DNP Lety Flynn Work Phone: [facility] Start: 04-30-2023 End: 04-30-2023 ambulatory Lety Kaple Other [employer] Other Start: 04-30-2023 Office outpatient visit 40 minutes Lety Flynn [facility] [place] Start: 04-30-2023 Telephone encounter Lety Kaple [facility] Start: 04-25-2023 End: 04-25-2023 ambulatory Lety Kaple Other [facility] Other Start: 04-25-2023 Telephone encounter Lety Uzielle F [facility] Start: 04-22-2023 End: 04-22-2023 ambulatory LETY KAPLE Facility:[facility] [place] Start: 04-17-2023 End: 04-17-2023 ambulatory Lety Kaple Other [facility] Other Start: 04-17-2023 Telephone encounter Lety Uzielle F [facility] Start: 04-16-2023 ambulatory LETY KAPLE Facility :[facility] [place] Start: 04-16-2023 End: 04-16-2023 ambulatory DNP Lety Kaple Work Phone: [facility] Work Phone: Start: 04-16-2023 End: 04-16-2023 Patient encounter procedure DNP Lety Flynn Work Phone: [facility] Start: 04-15-2023 End: 04-15-2023 ambulatory Lety Flynn Other [facility] Other Start: 04-15-2023 Telephone encounter Lety De La Torre [facility] Start: 04-12-2023 End: 04-12-2023 ambulatory Lety Flynn Other [employer] Other Start: 04-12-2023 Office outpatient visit 40 minutes Lety Flynn [facility] Start: 04-12-2023 End: 04-12-2023 Emergency department patient visit DNP Lety Flynn Work Phone: [facility] Work Phone: Start: 04-01-2023 End: 04-01-2023 ambulatory Lety Flynn Other [facility] Other Start: 04-01-2023 Telephone encounter Lety De La Torre [facility] Start: 02-26-2023 End: 02-26-2023 ambulatory Cornel Lopez Other [facility] Other Start: 02-26-2023 Office outpatient ne w 45 minutes Cornel Olexa [facility] Start: 02-26-2023 End: 02-26-2023 Patient encounter procedure DNP Lety Flynn Work Phone[facility] Start: 01-03-2023 End: 01-03-2023 ambulatory Letyjaimee Triplettortega Other [facility] Other Start: 01-03-2023 Office outpatient visit 25 minutes Lety Flynn [facility] [place] Start: 11-05-2022 End: 11-05-2022 ambulatory Laron Gomes Other [facility] Other Start: 11-05-2022 Office outpatient visit 15 minutes Laron Gomes [facility] Start: 09-18-2022 End: 09-18-2022 ambulatory Lety Flynn Other [facility] Other Start: 09-18-2022 Telephone encounter Lety Flynn [facility] Start: 09-14-2022 End: 09-14-2022 ambulatory DNP Lety Flynn Work Phone: [facility] [employer] Work Phone: Start: 09-14-2022 End: 09-14-2022 Patient encounter procedure DNP Lety Flynn Work Phone: [facility] Work Phone: Start: 09-11-2022 End: 09-11-2022 ambulatory Lety Flynn Other [employer] Other Start: 09-11-2022 Telephone encounter Lety Gee [facility] Start: 09-07-2022 ambulatory Facility:[id number] Start: 09-07-2022 End: 09-07-2022 ambulatory DNP Lety Triplettle Work Phone: [facility] Work Phone: Start: 09-07-2022 End: 09-07-2022 Patient encounter procedure DNP Lety Triplettle Work Phone: [facility] Work Phone: Start: 09-03-2022 End: 09-03-2022 ambulatory Lety Gee Other [facility] Other Start: 09-03-2022 Patient encounter procedure Lety Triplettortega [facility] [place] Start: 08-24-2022 End: 08-24-2022 ambulatory DNP Lety Flynn Work Phone: [facility] Work Phone: Start: 08-24-2022 End: 08-24-2022 Registered Recurring DNP Lety Flynn Work Phone: [facility] Work Phone: Start: 07-16-2022 End: 07-16-2022 ambulatory Lety Flynn Other [facility] Other Start: 07-16-2022 Telephone encounter Lety Gee F [facility] [place] Start: 07-11-2022 End: 07-11-2022 ambulatory DNP Lety Flynn Work Phone: [facility] Work Phone: Start: 07-11-2022 End: 07-11-2022 Discharged Recurring DNP Lety Flynn Work Phone: [facility] [place] Start: 06-18-2022 End: 06-18-2022 ambulatory Laron Benderno Other [facility] Other Start: 06-18-2022 Office outpatient visit 25 minutes Christjoseer Mireya [facility] Start: 06-12-2022 End: 06-12-2022 ambulatory Lety Gee Other [facility] Other Start: 06-12-2022 Office outpatient visit 25 minutes Lety Gee [facility] [place] Start: 06-04-2022 End: 06-04-2022 ambulatory Mckenzie Bates Other [facility] Other Start: 06-04-2022 Office outpatient visit 15 minutes Mckenzie Jana [facility] Start: 06-01-2022 End: 06-01-2022 ambulatory Lety Flynn Other [facility] Other Start: 06-01-2022 Telephone encounter Lety Gee [facility] [place] Start: 05-21-2022 End: 05-21-2022 ambulatory Lety Flynn Other [facility] Other Start: 05-21-2022 Telephone encounter Lety Triplettortega [facility] Start: 05-18-2022 End: 05-18-2022 ambulatory DNP Lety Flynn Work Phone: [facility] Work Phone: Start: 05-18-2022 End: 05-18-2022 Registered Recurring DNP Lety Flynn Work Phone: [facility] Start: 05-18-2022 Registered Recurring DNP Sammie Flynn Work Phone: [facility] Start: 05-16-2022 End: 05-16-2022 ambulatory DNP Lety Flynn Work Phone: [facility] Work Phone: Start: 05-16-2022 End: 05-16-2022 Patient encounter procedure DNP Lety Flynn Work Phone: [facility] Start: 05-11-2022 End: 05-11-2022 ambulatory Lety Flynn Other [facility] Other Start: 05-11-2022 Telephone encounter Lety Triplettortega [facility] Start: 05-10-2022 End: 05-10-2022 ambulatory DNP Lety Flynn Work Phone: [facility] Work Phone: Start: 05-10-2022 End: 05-10-2022 Patient encounter procedure DNP Lety Flynn Work Phone: [facility] [place] Start: 05-07-2022 End: 05-07-2022 ambulatory Lety Flynn Other [facility] Other Start: 05-07-2022 Telephone encounter Lety De La Torre [facility] Start: 05-02-2022 End: 05-02-2022 Patient encounter procedure DNP Lety Gee Work Phone: [facility] Start: 05-02-2022 End: 05-02-2022 ambulatory DNP Lety Gee Work Phone: [facility] Other Start: 05-02-2022 Office outpatient visit 40 minutes Lety Flynn [facility] Start: 01-12-2022 End: 01-12-2022 ambulatory Juliana Cassi Other [facility] Other Start: 01-12-2022 Telephone encounter Juliana Cassi [facility] Start: 11-06-2021 End: 11-06-2021 ambulatory Laron Gomes Other [facility] Other Start: 11-06-2021 Office outpatient visit 25 minutes Laron Pottsdano [facility] Start: 10-03-2021 End: 10-03-2021 ambulatory Laron Pottsdano Other [facility] Other Start: 10-03-2021 Telephone encounter Laron esquivel [facility] Start: 08-11-2021 End: 08-11-2021 ambulatory Lety Flynn Other [facility] Other Start: 08-11-2021 Telephone encounter Lety Triplettortega [facility] Start: 08-10-2021 End: 08-10-2021 ambulatory Lety Flynn Other [facility] Other Start: 08-10-2021 Telephone encounter Lety Triplettortega [facility] Start: 05-30-2021 Office outpatient visit 25 minutes Lety Flynn [facility] [place] Start: 05-30-2021 Telephone encounter Laron rangelo [facility] Start: 05-04-2021 Telephone encounter Anatoliy Nunez [facility] Start: 04-28-2021 Nursing evaluation o f patient and report Lety Gee [facility] [place] Start: 01-10-2016 Adult health examination Lety Triplettortega Other [employer] Other Procedures Date Procedure Procedure Detail Performing [...] Activity Detail Author Start: 10-21-2024 Patient referral [facility] Work Phone: Start: 09-14-2022 Radionuclide myocardial perfusion stress study NM aidan perf SPECT rest & str [facility] Start: 05-18-2022 [facility] Start: 05-16-2022 Positron emission tomography with computed tomography PET tumor init tx strat sb-mt [facility] Albumin [Mass/volume ] in Serum or Plasma [facility] Work Phone: Albumin/Globulin ratio [facility] Work Phone: Bacteria identified in Urine by Culture [facility] Comprehensive metabo lic 1999 panel - Serum or Plasma [facility] Comprehensive metabo lic 1999 panel - Serum or Plasma [facility] Comprehensive metabo lic 1999 panel - Serum or Plasma [facility] Comprehensive metabo lic 1999 panel - Serum or Plasma [facility] Comprehensive metabo lic 1999 panel - Serum or Plasma [facility] CT Abdomen and Pelvi s W contrast IV [facility] CT Chest WO contrast [facility] CT Chest WO contrast [facility] Electrophoresis: [id number] [facility] Work Phone: Electrophoresis: [id number] [facility] Work Phone: Electrophoresis: beta-globulin [facility] Work Phone: Electrophoresis: cydney ma globulin [facility] Work Phone: Erythrocyte sediment ation rate by Photometric method [facility] Globulin [Mass/volum e] in Serum [facility] Work Phone: Glucose measurement estimated from glycated hemoglobin [facility] Work Phone: Hemoglobin A1c/Hemoglobin.total in Blood [facility] Work Phone: IgA [Mass/volume] in Serum or Plasma [facility] Work Phone: IgG [Mass/volume] in Serum or Plasma [facility] Work Phone: IgM [Mass/volume] in Serum or Plasma [facility] Work Phone: [place] light chains.f ree [Mass/volume] in Serum [facility] Work Phone: [place] light chains.free/Lambda light chains.free [Mass Ratio] in Serum [facility] Work Phone: Lambda light chains. free [Mass/volume] in Serum or Plasma [facility] Work Phone: MG Breast - bilatera l Screening [facility] Patient Education [facility] Work Phone: [facility] Work Phone: Protein [Mass/volume ] in Serum or Plasma [facility] Work Phone: Protein electrophore sis, serum Protein electrophoresis, serum Lab Routine 12/17/2024 2:40 PM EDT [facility] Work Phone: [facility] Immunizations Immunization Date Immunization Notes Care Provider Keerthi escobar 04-19-2022 influenza, seasonal, injectable Lety Flynn Other [facility] 05-16-2021 COVID-19 Vaccine Pfi zer - Documentation Purposes Only Lety Flynn Other [facility] 04-28-2021 influenza virus vaccine, unspecified formulation [facility] 04-28-2021 influenza, high dose seasonal, preservative-free Lety Kaple Other [employer] [facility] [employer] Other 09-26-2020 COVID-19 Vaccine Pfi zer - Documentation Purposes Only Lety Flynn Other [facility] 09-05-2020 COVID-19 Vaccine Pfi zer - Documentation Purposes Only Letyjaimee Flynn Other [facility] 04-21-2020 influenza, high dose seasonal, preservative-free Lety Kaple Other [facility] [employer] Other 04-21-2020 influenza virus vaccine, unspecified formulation [facility] 06-24-2019 influenza virus vaccine, unspecified formulation [facility] 06-24-2019 influenza, high dose seasonal, preservative-free Lety Kaple Other [facility] [employer] Other 06-24-2019 pneumococcal conjuga te vaccine, 13 valent Lety Flynn Other [facility] 10-27-2017 tetanus and diphther ia toxoids, adsorbed, preservative free, for adult use (5 Lf of tetanus toxoid and 2 Lf of diphtheria toxoid) [facility] 10-27-2017 tetanus toxoid, redu libby diphtheria toxoid, and acellular pertussis vaccine, adsorbed Lety Flynn Other [facility] 06-21-2015 influenza, injectabl e, quadrivalent, contains preservative Lety Flynn Other [facility] [employer] Other 06-21-2015 influenza, injectabl e, quadrivalent, preservative free [facility] 06-29-2013 influenza, injectabl e, quadrivalent, contains preservative Lety Flynn Other [facility] Payers Date Payer Category Payer Self-pay [id number] 2022 Medicare [id number] 2022 Medicare [id number] 2022 Unknown [id number] 2010 Medicare MEDICARE [id number] 1945 Unknown [id number] [id number]. 356 1945 Unknown [id number] 2.16.840.1.114122.3.579.2. 727 1945 Unknown [id number] 2.16.840.1.121493.3.579.2. 727 1945 Unknown [id number] 2.16.840.1.572118.3.579.2. 727 1945 Unknown [id number] 2.16.840.1.591178.3.579.2. 72 1945 Unknown [id number] 2.16.840.1.008664.3.579.2. 727 1945 Unknown [id number] 2.16.840.1.047753.3.579.2. 72 1945 Unknown [id number] 2.16.840.1.375368.3.579.2. 72 1945 Unknown [id number] 2.16.840.1.163905.3.579.2. 72 1945 Unknown [id number] 2.16.840.1.736894.3.579.2. 727 Private Health Insurance [employer] [id number] Unknown [id number] 2.16.840.1.841563.3.579.2. 531 Unknown [id number] 2.16840.1.703321.3.579.2. 531 Unknown [id number] 2.16.840.1.007262.3.579.2. 531 Unknown [id number] 2.16.840.1.119835.3.579.2. 531 Unknown [id number] 2.16.840.1.745835.3.579.2. 531 Unknown [id number] 2..840.1.106534.3.579.2. 531 Unknown [id number] 2.16.840.1.263845.3.579.2. 531 Social History Date Type Detail Facility Unknown if ever smoked [facility] Other Sex Assigned At [facility] Start: 04-22-2019 End: 04-07-2024 Tobacco smoking status NHIS Ex-smoker (finding) [facility] Start: 1945 Sex Assigned At Female F [facility] Start: 04-12-2023 End: 07-16-2023 Tobacco smoking status NHIS Never smoked tobacco (finding) [facility] Tobacco smoking status Never [facility] Start: 08-21-2024 End: 01-08-2025 Sex Female (finding) [facility] Tobacco smoking status MDIS Tobacco smoking consumption unknown [facility] Start: 1945 Sex assigned at Not on file [facility] Functional Status Date Assessment Result Facility 02-18-2024 Functional Status N/A [facility] 09-17-2023 Functional Status N/A [facility] 06-07-2023 Functional Status N/A [facility] 05-20-2023 Functional Status N/A [facility] Clinical Notes 05-30-2021 to 10-21-2024 Note Date & Type Note Facility 10-21-2024 Evaluation note Diagnosis Onset Date Resolution MGUS (monoclonal gammopathy of unknown significance) acute October 21, 2024 10:57am Peripheral neuropathy acute Mar 2024 10:57am Vitamin B12 deficiency acute [facility] 2024 10:57am Breast cancer screening by mammogram noneactive October 10:57am [facility] Work Phone: 1(450) 407-914912-18-2024 Evaluation note* Diagnosis Onset Date Resolution Status Admit Date Peripheral neuropathy acute Dec ember 2023 11:05am [facility] Work Phone: 1(334) 992-788407-16-2024 Hospital Discharge instructions Patient Education 02/18/2024 12:04:17 [...] include: ?8 oz (237 mL) of milk, sglgshk-deaxupooutbs-hxrdo milk, and calcium- fortifiedfruit juice. Calcium-fortified means [...] ?Spinach (cooked), rhubarb, beets, sweet potatoes, and Samoan chard. ?Peanuts. ?Potato chips, uruguayan fries, and baked potatoes with skin on. ?Nuts and nut products. ?Chocolate. If you regularly take a diuretic medicine, make sure to eat at least 1 or 2 servings of fruits or vegetables that are high in potassium each day. These include: ?Avocado. ?Banana. ?[place], prune, carrot, or tomato juice. ?Baked potato. [...] magnesium, fish oil, or vitamin B6. Take umix-qux-tarktem and prescription medicines only as told by [...] Casseroles. Pizza. Lasagna. Frozen meals. Potato chips. Citizen Of [place] fries. The items listed above may not [...] provider. Document Revised: 11/01/2022 Document Reviewed: 11/01/2022 [employer] Patient Education 2022 [employer]. 02/18/2024 12:04:15 Kidney Stones, Wzxw-zv-Zbqt Kidney Stones Kidney stones are rock-like masses [...] Follow these instructions at home: Medicines Take rafr-pxh-jnxclxe and prescription medicines only as told by [...] provider. Document Revised: 03/26/2022 Document Reviewed: 03/26/2022 [employer] Patient Education 2022 [employer]. 02/18/2024 12:04:15 Hematuria, Adult Hematuria, Adult Hematuria [...] Follow these instructions at home: Medicines Take lvyi-byi-aictxuy and prescription medicines only as told by [...] or the blood stops without treatment. Take shjq-phu-ynculzd and prescription medicines only as told by your health care provider. Drink enough fluid to keep your urine pale yellow. This information is not intended to replace advice given to you by your health care provider. Make sure you discuss any questions you have with your health care provider. Document Revised: 03/22/2021 Document Reviewed: 03/22/2021 Elsevier Patient Education 2022 Academic Management Services. [facility] [place] 07-16-2024 Evaluation + Plan note Diagnostic Tests Pending * Urine Culture 02/18/24 [facility]07-16-2024 NotePatient Education Nephrology Dietary Guidelines to [...] ? 8 oz (237 mL) of milk, xvpaxsq-kjkdxmzpobwe-qnwru milk, and calcium- fortifiedfruit juice. Calcium-fortified means [...] Spinach (cooked), rhubarb, beets, sweet potatoes, and Samoan chard. ? Peanuts. ? Potato chips, uruguayan fries, and baked potatoes with skin on. ? Nuts and nut products. ? Chocolate. ? If you regularly take a diuretic medicine, make sure to eat at least 1 or 2 servings of fruits orvegetables that are high in potassium each day. These include: ? Avocado. ? Banana. ? [place], prune, carrot, or tomato juice. ? Baked [...] fish oil, or vitamin B6. ? Take ytnd-lwr-pdlhbbj and prescription medicines only as told by your health care provider. Theseinclude suppleme (more content not included)...[facility]02-13-2024 Hospital Discharge instructions Patient Education 09/17/2023 13:25:40 [...] [facility] [address] , [place] [address]- Business (1) When:12/16/2023 13:25:22 Comments:With a bladder scan PVR [facility]02-13-2024 Note [id number] [facility] 09-17-2023 NoteCustom Cystoscopy ? Voiding after the [...] if you have a fever over 100 degrees.[facility] 07-23-2023 Evaluation note* Encounter Date Diagnosis Assessment Notes Treatment Notes Treatment Clinical Notes Jul, Chronic obstructive pulmonary disease, unspecified (ICD-10 - J44.9) [facility] Other 11-28-2023 Evaluation note* Encounter Date Diagnosis Assessment Notes Treatment Notes Treatment Clinical Notes Jun, Loss of appetite (ICD-10 - R63.0) Jun, Nausea (ICD-10 - R11.0) Jun, Trouble swallowing (ICD-10 - R13.10) [facility] Other 11-07-2023 Hospital Discharge instructions Patient Education [...] Urology [address], [place] [address]- Business (1) When: Unknown Comments:Office will call to schedule follow up [facility]11-07-2023 Note [id number] [facility] 06-11-2023 NoteCustom Cystoscopy ? Voiding after the [...] if you have a fever over 100 degrees.[facility] 05-23-2023 Progress note Author Radha Zayas [facility] May 23, 2023 11:16am Note Date/Time May 17, 2023 4 :14pm [facility] at [address] [address] Hem/Onc Follow Up Note - OP Signed Patient: Jose Kim MR#: [id number] : 1945 Acct:[id number] Age/Sex: 78 / F Type: REG RCR [...] detected on protein electrophoresis. Immunofixation without monoclonality Iglesia Antigua lambda ratio is preserved. Elevated quantitative IgG. [...] of Kyara Flynn NP. She lives in [place] but gets all of her care through [facility]. Referred for elevated paraprotein labs, and jacques [...] urology input. She had a PE at [facility] after hospitalization. We will get records of [...] for coordination of care (as documented) and yczg-bk-pwwu counseling of patient and/or family. [facility] - Medical History Medical History: Medical History [...] <Electronically signed by TRENTON Zayas> 05/23/23 [address] [facility] Work Phone: [phone] 911-138410-16-2023 Hospital Discharge instructions Patient Education 05/20/2023 14:26:50 [...] including vitamins, herbs, eye drops, creams, and qhyd-vyd-dezrnro medicines. Any problems you or family members [...] provider tells you to take them. Taking gwyd-kgf-qspgwkv medicines, vitamins, herbs, and supplements. Tests You [...] Follow these instructions at home: Medicines Take zkee-epe-hwrmcry and prescription medicines only as told by [...] provider. Document Revised: 04/04/2022 Document Reviewed: 03/03/2021 [employer] Patient Education 2022 Academic Management Services. Follow Up Care 05/17/2023 14:32:14 With:YUE GILL, Garcia Swift, URL Address: [facility] [address], [place] [address]- When: Unknown Comments:Sched Cysto/UD [facility] 10-16-2023 NoteUrology Cystoscopy Cystoscopy is a [...] including vitamins, herbs, eye drops, creams, and gnno-rgx-gbcsgxe medicines. ? Any problems you or family [...] tells you to take them. ? Taking kxmc-ffh-fzprjhg medicines, vitamins, herbs, and supplements. Tests You [...] these instructions at home: Medicines ? Take qdny-uge-tkhetxi and prescription medicines only as told by [...] or the department th (more content not included)...[facility] 05-17-2023 Evaluation note* Encounter Date Diagnosis Assessment Notes Treatment Notes Treatment Clinical Notes May, Anxiety (ICD-10 - F41.9) [facility] Other 10-05-2023 Evaluation note* Encounter Date Diagnosis Assessment Notes Treatment Notes Treatment Clinical Notes May, Gross hematuria (ICD-10 - R31.0) May, Other acute pulmonary embolism, unspecified whether acute cor pulmonale present (ICD-10 - I26.99) [facility] Other 10-02-2023 Evaluation note* Encounter Date Diagnosis Assessment Notes Treatment Notes Treatment Clinical Notes May, Other closed displaced fracture of proximal end of right humerus, sequela (ICD-10 - S42.291S) [facility] Other 09-27-2023 Hospital Discharge instructions Follow Up Care 05/01/2023 09:02:43 With:YUE GILL, Garcia Swift, URL Address: [facility] [address], [place] [address]- [phone] When: Unknown [facility] 09-26-2023 Evaluation note* Encounter Date Diagnosis [...] treatment plan after patient left the office. [facility] Other 09-08-2023 Evaluation note* Encounter Date Diagnosis Assessment Notes Treatment Notes Treatment Clinical Notes Apr, Gross hematuria (ICD-10 - R31.0) Jose is a 77 year old female who presents today for complaints of blood in urine. She started with blood in urine on 04/10/23. She was discharged home from [facility] in [place] 04/11/23. Blood in urine was not as bad as it is now. She was dx with UTI and is taking Cefdinir. She is on Eliquis 5 mg BID for PE. Today her pulse is in the 114s, BP 100/60. She is down over 20 pounds since being in [facility]. She was admitted to [facility] on 02/11/23. The reason for her being there was due to falling in [place] while on vacation and fractured right humerus, right sacral and right pubic rami fractures on 02/04/23. She was hospitalized in [place] on 02/04/23. Had some dysfunction with her kidneys while in the hospital at [place]. She stayed in the [facility] from 02/04/23-02/11/23 and transferred to [facility] on 02/11/2023. While she was in [facility], she developed a PE to her lungs and she was transferred to [facility] and was put on Eliquis. Has [...] internal bleeding. Patient is referred to the [facility] ER today. Report called to [facility] CHILD WATCH ATTENDANTCAITLIN Robles, patient and patient are in agreement and patient states that he will take her right over to [facility] ER. Apr, Other Homero benitezan christine amount of time was spent with this patient > 60 minutes including time spent with patient, prepping for patient and treatment plan after patient left the office. [facility] Other 06-01-2023 Evaluation note* Encounter Date Diagnosis [...] this time. We'll continue current treatment plan. [facility] Other 04-03-2023 Evaluation note* Encounter Date Diagnosis Assessment Notes Treatment Notes Treatment Clinical Notes Nov, Chronic obstructive pulmonary disease, unspecified (ICD-10 - J44.9) [facility] Other 02-03-2023 NoteProcedure/Quality: A two-dimensional transthoracic echocardiogram with colorNorth [employer] Other 01-30-2023 Evaluation note* Encounter Date Diagnosis Assessment Notes Treatment Notes Treatment Clinical Notes Aug, Medicare annual wellness visit, subsequent (ICD-10 - Z00.00) Personalized health advice was given to the beneficiary including a written plan for screenings discussed and provided. Advanced care planning reviewed and/or information given as requested. The above visit was performed by Laly WEINER, under direct supervision of Lety Flynn,SARA,FITTER AND TURNER,MANAGER CREDIT. Document reviewed and amended by provider signed [...] (ICD-10 - I49.9) See above treatment plan. [facility] Other 01-20-2023 Progress note Author Pete Erazo [facility] August 24, 2022 11:38am Note Date/Time August 24, 2022 1 1:31am [facility] at [address] [address] Hem/Onc Follow Up Note - OP Signed Patient: Jose Kim MR#: [id number] : 1945 Acct:[id number] Age/Sex: 77 / F Type: REG RCR [...] detected on protein electrophoresis. Immunofixation without monoclonality Iglesia Antigua lambda ratio is preserved. Elevated quantitative IgG. [...] of Kyara Flynn NP. She lives [place] [facility] but gets all of her care through [facility]. Referred for elevated paraprotein labs, and jacques [...] for coordination of care (as documented) and iprn-yq-rfvc counseling of patient and/or family. [facility] - Medical History Medical History: Medical History [...] Globulin (PEP) 4.8 H, Albumin/Globulin (PEP) 0.7, Xxney-9-Niplyqwbh 0.3, Xzltt-6-Rxflfjuqc 1.0,Beta Globulins 1.1, Gamma Globulins 2.5 H, M-Hernando Not observed, PEP Note , IgG 2783 H, IgA 259, IgM 205, Serum Immunofixation , Free Iglesia Antigua LC, Quant 89.6 H, Free Lambda LC, Quant 43.1 H, Free Iglesia Antigua/Lambda Ratio 2.08 H 08/20/22 09:35: PHA Creatinine [...] % (Auto) 78.1, Lymph % (Auto) 12.0, [place] % (Auto) 9.1, Eos % (Auto) 0.3, Baso % (Auto) 0.5, Nucleat RBC Rel Count 0.0, Neut # (Auto) 6.9, Lymph # (Auto) 1.1, [place] # (Auto) 0.8, Eos # (Auto) 0.0, [...] by Pete Erazo II, DO> 08/24/22 [address] [facility] Work Phone: [phone] 496-192412-12-2022 Evaluation note* Encounter Date Diagnosis Assessment Notes Treatment Notes Treatment Clinical Notes Jul, Chronic obstructive pulmonary disease, unspecified (ICD-10 - J44.9) [facility] Other 11-23-2022 Progress note Author Emma Samson [facility] June 27, 2022 2:33pm Note Date/Time June 27, 2022 2:33pm [facility] [address] [place] [address] Wound Center Provider Note Signed Patient: Jose Kim MR#: [id number] : 1945 Acct:[id number] Age/Sex: 77 / F Copies to: Lety Flynn, SARA Samson, FITTER AND TURNER~ HPI Date of Visit Date of Visit: Date of Service: 06/27/2022 Time of Service: 14:32 Narrative HPI: 06/13/22 Jose is a 77 year old female presenting to [facility] wound care program for an initial visit [...] wound start?: May 2022 Mode of Arrival/ City Wellness Coordinator: Personal vehicle Assistive Device Used Today: Cane [...] Infection Thickness: Full Bed Appearance: Beefy Red, [place] and Yellow Percent of Wound Bed Granulated/Red: [...] By: <Electronically signed by TRENTON Samson> 06/27/221432 [facility] Work Phone: [phone]) 285-255611-16-2022 Progress note Author Emma Samson [facility] June 20, 2022 3:08pm Note Date/Time June 20, 2022 3:08pm [facility] [address] [place] [address] Wound Center Provider Note Signed Patient: Jose Kim MR#: [id number] : 1945 Acct:[id number] Age/Sex: 77 / F Copies to: SARA Tang APRN~ HPI Date of Visit Date of Visit: Date of Service: 06/20/2022 Time of Service: 15:05 Narrative HPI: 06/13/22 Jose is a 77 year old female presenting to [facility] wound care program for an initial visit [...] wound start?: May 2022 Mode of Arrival/ City Wellness Coordinator: Personal vehicle Assistive Device Used Today: Cane Lives with:: Spouse Appetite Description: Within Normal Limits Who helps w/ dressing change?: Self Smoking Status: Former smoker [facility] Vaccinated for COVID-19?: Yes Medical History (Updated [...] Infection Thickness: Full Bed Appearance: Beefy Red, [place] and Yellow Percent of Wound Bed Granulated/Red: [...] 15 Dictated By: Emma Samson APRN DD/ [id number] Signed By: <Electronically signed by TRENTON Samson> 06/20/22 [address] [facility] Work Phone: [phone] 375-288711-14-2022 Evaluation note* Encounter Date Diagnosis Assessment Notes Treatment Notes Treatment Clinical Notes Jun, Chronic obstructive pulmonary disease, unspecified (ICD-10 - J44.9) [facility] Other 11-09-2022 Progress note Author Emma Samson [facility] June 13, 2022 2:30pm Note Date/Time June 13, 2022 2 :25pm [facility] [address] [place] [address] Wound Center Provider Note Signed Patient: Jose Kim MR#: [id number] : 1945 Acct:[id number] Age/Sex: 77 / F Copies to: SARA Tang APRN~ HPI Date of Visit Date of Visit: Date of Service: 06/13/2022 Time of Service: 14:20 Narrative HPI: 06/13/22 Jose is a 77 year old female presenting to [facility] wound care program for an initial visit [...] wound start?: May 2022 Mode of Arrival/ City Wellness Coordinator: Personal vehicle Assistive Device Used Today: Cane [...] Infection Thickness: Full Bed Appearance: Beefy Red, [place] and Yellow Percent of Wound Bed Granulated/Red: [...] By: <Electronically signed by TRENTON Samson> 06/13/221429 [facility] Work Phone: [phone] Evaluation note* Encounter Date Diagnosis Assessment Notes [...] today and appointment made for tomorrow at [facility] with [facility] wound care. Patient notified and states she will keep this appointment. She will keep dry and clean until seen by wound care tomorrow, follow wound care orders after that. Notify office should she need anything further with this. [facility] Other 10-31-2022 Evaluation note* Encounter Date Diagnosis Assessment Notes Treatment Notes Treatment Clinical Notes May, Chronic obstructive pulmonary disease with acute exacerbation (ICD-10 - J44.1) Take medications as directed. Use nebulizer or inhaler as directed. Take medication with food to prevent stomach upset. . Follow up with primary care provider is recommended if symptoms don''t improve. [facility] Other 10-15-2022 Progress note Author Pete Erazo [facility] May 19, 2022 12:56pm Note Date/Time May 18, 2022 1 1:38[facility] [place] [id number] Hem/Onc Follow Up Note - OP Signed Patient: Jose Kim MR#: [id number] : 1945 Acct:[id number] Age/Sex: 77 / F Type: REG RCR [...] Will check immunofixation with her next labs. Iglesia Antigua lambda ratio is preserved. Elevated quantitative IgG. [...] of Kyara Flynn NP. She lives [place] but gets all of her care through [facility]. Referred for elevated paraprotein labs, and jacques [...] She had eelvated total protein and Kyara Flnyn sent SPEP sflc, no monclonality. elevated quanti [...] for coordination of care (as documented) and tlri-si-uesz counseling of patient and/or family. [facility] - Medical History Medical History: Medical History (Last Reviewed 05/18/22 @ 11:09 by Cecilia Aleman) COPD (chronic obstructive pulmonary disease) High cholesterol Hypertension Psoriasis - Surgical History Surgical History: Surgical History (Last Reviewed 05/18/22 @ 11:09 by Cecilia Aleman) History of surgery left leg aileen and [...] signed by Pete Erazo II, DO> 05/19/22 [facility]52 [facility] Work Phone: [phone] Evaluation note* Encounter Date Diagnosis Assessment Notes Treatment Notes Treatment Clinical Notes May, Multiple lung nodule s on CT (ICD-10 - R91.8) May, Shortness of breath (ICD-10 - R06.02) May, Hyperproteinemia (ICD-10 - E88.09) [facility] Other 10-03-2022 Evaluation note* Encounter Date Diagnosis Assessment Notes Treatment Notes Treatment Clinical Notes May, Hyperproteinemia (ICD-10 - E88.09) [facility] Other 09-28-2022 Evaluation note* Encounter Date Diagnosis Assessment Notes Treatment Notes Treatment Clinical Notes Apr, Chronic obstructive pulmonary disease, unspecified (ICD-10 - J44.9) Jose is a 77 year old female who presents today stating that she needs to get in to see machine crater sooner than June. She was recommended to [...] continue current treatment plan pending lab results. [facility] Other 06-10-2022 Evaluation note* Encounter Date Diagnosis Assessment Notes Treatment Notes Treatment Clinical Notes Jan, Chronic obstructive pulmonary disease, unspecified (ICD-10 - J44.9) [facility] Other 04-04-2022 Evaluation note* Encounter Date Diagnosis Assessment Notes Treatment Notes Treatment Clinical Notes Nov, Chronic obstructive pulmonary disease, unspecified (ICD-10 - J44.9) [facility] Other 03-01-2022 Evaluation note* Encounter Date Diagnosis Assessment Notes Treatment Notes Treatment Clinical Notes Oct, Chronic obstructive pulmonary disease, unspecified (ICD-10 - J44.9) [facility] Other 01-06-2022 Evaluation note* Encounter Date Diagnosis Assessment Notes Treatment Notes Treatment Clinical Notes Aug, Decreased renal clearance (ICD-10 - R94.4) [facility] Other 10-26-2021 Evaluation note* Encounter Date Diagnosis [...] verbalizes understanding and agrees to treatment plan. [facility] Other Evaluation + Plan note Future Appointments Appointment Date:06/04/2023 01:45:00 PM Scheduled Provider: Location:[facility] Appointment Type:Urology CALL PAT FT Appointment Date:06/11/2023 02:45:00 PM Scheduled Provider: Location:[facility] Appointment Type:Urology FT Appointment Date:08/12/2023 11:00:00 AM Scheduled Provider:Garcia TURNER MD Location:[facility] Appointment Type:URO New Patient Diagnostic Tests Pending * [facility] Future Appointments Appointment Date:06/04/2023 01:45:00 PM Scheduled Provider: Location:[facility] Appointment Type:Urology CALL PAT FT Appointment Date:06/11/2023 02:45:00 PM Scheduled Provider: Location:[facility] Appointment Type:Urology FT Appointment Date:08/12/2023 11:00:00 AM Scheduled Provider:Garcia TURNER MD Location:[facility] Appointment Type:URO New Patient [facility] evaluation + Plan note Future Appointments Appointment Date:08/12/2023 11:00:00 AM Scheduled Provider:Garcia TURNER MD Location:[facility] Appointment Type:URO New Patient Diagnostic Tests Pending * [facility] Future Appointments Appointment Date:12/16/2023 12:45:00 PM Scheduled Provider:Garcia TURNER MD Location:[facility] Appointment Type:URO [facility] Future Appointments Appointment Date:01/14/2024 11:00:00 AM Scheduled Provider:CARLOS A Ellison APRN, [place] X Location:[facility] Appointment Type:URO Office Visit [facility] evaluation + Plan note Future Appointments Appointment Date:02/04/2024 11:30:00 AM Scheduled Provider:CARLOS A Ellison APRN, [place] X Location:[facility] Appointment Type:URO Office Visit [facility] evaluation + Plan note Future Appointments Appointment Date:02/18/2024 11:30:00 AM Scheduled Provider:CARLOS A Ellison APRN, [place] X Location:[facility] Appointment Type:URO Office Visit [facility] evaluation noteNo InformationNortComcast Other evaluation noteNo assessment information available [facility] Work Phone: Evaluation note* Diagnosis Onset Date Resolution Status Pulmonary nodule acute Perineal abscess chronic Wound pain chronic [facility] Work Phone: evaluation note* Diagnosis Onset Date Resolution Status Perineal abscess resolved Wound pain resolved Pulmonary nodule acute [facility] Work Phone: evaluation noteNoCAYMUS MEDICAL Other evaluation note* Diagnosis Onset Date Resolution Status Pulmonary nodule acute [facility] Work Phone: evaluation note* Diagnosis Onset Date Resolution Status Bruised ribs acute Fractured pelvis acute Hospital discharge follow-up acute Osteoporosis acute [facility] Work Phone: Evaluation note* Diagnosis Onset Date Resolution Status Bruised ribs acute Fractured pelvis acute Hospital discharge follow-up acute Osteoporosis acute COPD (chronic obstructive pulmonary disease) acute NANCY (generalized anxiety disorder) acute High cholesterol acute History of pulmonary embolus (PE) acute Hypertension acute Moderate major depression ac javier Prediabetes acute Psoriasis acute [facility] Work Phone: Evaluation note* Diagnosis Onset Date Resolution Status COPD (chronic obstructive pulmonary disease) acute NANCY (generalized anxiety disorder) acute High cholesterol acute History of pulmonary embolus (PE) acute Hypertension acute Moderate major depression ac javier Prediabetes acute Psoriasis acute 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 [facility] Work Phone: Evaluation note* Diagnosis Onset Date Resolution Status Admit Date MGUS (monoclonal gammopathy of unknown significance) acute October 10:57am Peripheral neuropathy acute [facility] 2024 10:57am Vitamin B12 deficiency acute [facility] 2024 10:57am [facility] Work Phone: History general Narrative - Reported* Type Description Date Medical History Hyperlipidemia Medical History Hypertension Medical History Osteoporosis Medical History psoriasis ear Medical History COPD (chronic obstructive pulmon radha disease) Medical History Pneumonia Surgical History Hip surgery post fall; had aileen and screws Surgical History Appendectomy: at age 16 Surgical History COLONOSCOPY- DR SHORT 9 Hospitalization History See above [facility] Other [facility] [employer] Other History general Narrative - Reported* Type [...] History See above Hospitalization History pulmonary embolism [facility] Other Hospital course Narrative No data available for this section [facility] Hospital Discharge instructions No data available for this section [facility] Orders* Referral to Hematology Time Frame: 10/21/24, Location: None Selected [facility] Work Phone: Progress note Author Pete Erazo [facility] August 24, 2022 11:38am Note Date/Time August 24, 2022 1 1:31am [facility] at [address] [address] Hem/Onc Follow Up Note - OP Signed Patient: Jose Kim MR#: [id number] : 1945 Acct:[id number] Age/Sex: 77 / F Type: REG RCR [...] detected on protein electrophoresis. Immunofixation without monoclonality Iglesia Antigua lambda ratio is preserved. Elevated quantitative IgG. [...] of Kyara Flynn NP. She [place] but gets all of her care through [facility]. Referred for elevated paraprotein labs, and jacques [...] PCP and is attempting to see Dr. Gmoes. She had elevated total protein and Kyara [...] for coordination of care (as documented) and hzuk-ce-fafk counseling of patient and/or family. [facility] - Medical History Medical History: Medical History [...] Globulin (PEP) 4.8 H, Albumin/Globulin (PEP) 0.7, Gpwgn-2-Sjpqvvgcy 0.3, Bzrgc-7-Jzhangolv 1.0,Beta Globulins 1.1, Gamma Globulins 2.5 H, M-Hernando Not observed, PEP Note , IgG 2783 H, IgA 259, IgM 205, Serum Immunofixation , Free [place] LC, Quant 89.6 H, Free Lambda LC, Quant 43.1 H, Free [place]/Lambda Ratio 2.08 H 08/20/22 09:35: PHA Creatinine [...] % (Auto) 78.1, Lymph % (Auto) 12.0, [place] % (Auto) 9.1, Eos % (Auto) 0.3, Baso % (Auto) 0.5, Nucleat RBC Rel Count 0.0, Neut # (Auto) 6.9, Lymph # (Auto) 1.1, [place] # (Auto) 0.8, Eos # (Auto) 0.0, [...] by Pete Erazo II, DO> 08/24/22 1138 [facility] Work Phone: Progress note No data available for this section [facility] Chief Complaint and Reason for Visit [...] 2024 10:57am Breast cancer screening by mammogram [facility] 2024 10:57am Chief Complaint Admit Date 6 [...] acute cor pulmonale present (I26.99) Referral Organization [facility] Family Yolandain lion RebolledoSeward Referring Provider First Name Lety Referring Provider Last Name Gee Referring Provider Specialty Nurse Pract itioner Referred Organization [facility] [place] Referred Provider Venice Yepez Referred Address [address] [place], [place],[address] Referred Provider Specialty Hematology/O ncology Referral Priority Routine General Notes Spoke to Dr Yepez's office. They need referral before they will schedule pt Sarah Maldonado 05/09/2023 01:37:14 PM >referral received and faxed Reason Refer to urology; cancel referral for local urology as they cannot get her in until August 2023 Diagnosis 1 Gross hematuria (R31 .0) Referral Organization [facility] Rocket Raise Yolandakirsten lion Ashley Referring Provider First Name Lety Referring Provider Last Name Gee Referring Provider Specialty Nurse Pract itioner Referred Provider Specialty Urology Referral Priority Routine Reason * Waiting for appt refer to Dr. Watts for closed displace right humerus fracture; not surgical candidate, increased pain Diagnosis 1 Other closed displac ed fracture of proximal end of right humerus, sequela (S42.291S) Referral Organization [facility] Family Yolandakirsten lion [place] Referring Provider First Name Lety Referring Provider Last Name Gee Referring Provider Specialty Nurse Pract itioner Referred Organization [facility] Pain Managemen t Referred Provider Joshua Watts Referred Address [address],[address] Referred Provider Specialty Pain Medicin e Referral Priority Routine General Notes Sarah Maldonado 05/2023 01:45:49 PM > referral received and sent p2p Reason * 05/21 refer t o oncology for multiple lung nodules on CT (PET scan is ordered), hyperproteinemia, 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 Diagnosis 1 Multiple lung nodule s on CT (R91.8) Referral Organization [facility] Family Yolandain lion Ashley Referring Provider First Name Lety Referring Provider Last Name Gee Referring Provider Specialty Nurse Pract itioner Referred Organization [facility] Referred Provider Venice Yepez Referred Address [address] [place], [place],[address] Referred Provider Specialty Hematology/O ncology Referral Priority [...] flu shotSickDISCUSS 6 MINUTE WALK TESTPt is [id number] resultslab resultsRefills- Stiolto1 year fu COPDRefill- AlbuterolNeeds to get into the machine crater sooner than June, and so they instructed [...] results1 yr f/u COPD4 month Follow up, [id number] in UrineFR-ERmutual patientNo Informationswellingurology appointmentpain in necklabsrefillrefillanxietygross [...] End: April 07, 2024 Juliana Ye APRN [facility] Attending Provider Active Start: April [...] Team Status: Inactive Member Role Status Dates Ptera Holliday , DO Primary Care Provider Active [...] section and content) DATE CREATED AUTHOR 09/14/2022 [facility] DATE CREATED AUTHOR AUTHOR'S ORGANIZ ATION 02/20/2024 [facility] DATE CREATED AUTHOR AUTHOR'S ORGANIZ ATION 02/24/2024 [facility] DATE CREATED AUTHOR AUTHOR'S ORGANIZ ATION 02/15/2025 [facility] FOR RECORDS PERTAINING TO PATIENTS [...] BE BASED ON THE PRIMARY CLINICAL RECORDS. [employer] provides no warranty or guarantee of the accuracy or completeness of information in this document.
[2025-03-20 23:12] LABS: SARS-CoV-2 Ag NEGATIVE (NEGATIVE)
[2025-03-21] VITALS (20 sets, daily range): BP systolic 100–131; BP diastolic 56–70; PULSE 55–109; TEMP 36.6–36.8; O2SAT 93–98
[2025-03-21 06:44] LABS: Hematocrit 54.1 % (36.0-48.0); Hemoglobin 17.6 g/dL (12.0-16.0); Mean Corpuscular HGB Conc 32.5 g/dL (29.9-35.2); Mean Corpuscular Hemoglobin 30.2 pg (26.7-34.0); Mean Corpuscular Volume 92.8 fL (81.0-99.0); Platelet Count 144 10^3/uL (150-450); Red Blood Count 5.83 10^6/uL (4.20-5.40); White Blood Count 8.1 10^3/uL (4.0-11.0)
[2025-03-21 06:51] LABS: Alanine Aminotransferase 13 U/L (14-59); Albumin Globulin Ratio 0.4; Albumin Level 2.5 g/dL (3.4-5.0); Alkaline Phosphatase 90 U/L (46-116); Anion Gap 15.1; Aspartate Amino Transferase 16 U/L (15-37); Blood Urea Nitrogen 22.0 mg/dL (7.0-18.0); Calcium 8.8 mg/dL (8.5-10.1); Carbon Dioxide 23.4 mmol/L (21.0-32.0); Chloride 105 mmol/L (98-107); Estimated GFR (African America 51 (>=60 mL/min/1.73m^2); Estimated GFR (Non-African Ame 42 (>=60 mL/min/1.73m^2); Globulin 6.0 g/dL; Glucose 192 mg/dL (74-106); Magnesium 2.0 mg/dL (1.8-2.4); Potassium 4.5 mmol/L (3.5-5.1); Sodium 139 mmol/L (136-145); Total Protein 8.5 g/dL (6.4-8.2)
[2025-03-21] MEDS: IPRATROPIUM/ALBUTEROL SULFATE 3 ML AMPUL.NEB IH ×3 (08:05→20:13)
[2025-03-21] MEDS: DOXYCYCLINE HYCLATE 100 MG in 0.9 % SODIUM CHLORIDE 100 ML IV ×2 (08:14→20:00)
[2025-03-21] MEDS: METHYLPREDNISOLONE SOD SUCC PF 40 MG/ML VIAL IVP ×2 (08:14→21:22)
--- NOTE | 2025-03-21 12:27 | CT_ITS ---
[facility] [place] [id number] Patient Name: JOSE BROWN MRN: [id number] date: 1945 Sex: F Assigned Patient Location: Current Patient Location: Accession/Order Number: [id number] Exam Date: 03/21/2025 15:26 Report Date: 03/21/2025 15:29 At the request of: ALEX MCKNIGHT MD Procedure: CT chest wo con CT CHEST WITHOUT IV CONTRAST: CLINICAL HISTORY: COPD, Pneumonia, CA COMPARISON: Chest 03/20/2025 TECHNIQUE: Spiral images were obtained through the chest without IV contrast. This CT exam was performed using one or more following dose reduction techniques: Automated exposure control, adjustment of the mA and/or kV according to patient size, or use of iterative reconstruction technique. FINDINGS: Mediastinum:Thoracic aorta is normal in caliber. Pulmonary trunk appears nondilated. No pleural effusion. No lymphadenopathy. The esophagus is grossly unremarkable. Lungs:Trace right-sided pleural effusion. Dependent consolidations involving the lower lobes. Emphysema. No pneumothorax. Respiratory motion limits evaluation. A few postinflammatory nodules are seen. Mild lung scarring. Abd:No acute findings. Soft tissues/Bones: No acute findings. Osseous structures demonstrate degenerative change. Remote posttraumatic changes involving the right shoulder. CT/CT chest wo con IMPRESSION: Trace right-sided pleural effusion with consolidation involving the lower lobes. Pneumonia cannot be excluded. Emphysema. Impression dictated by: Rojas Oscar Jr., D.O. 03/21/2025 3:29 PM Dictation Location: [facility] [employer] [facility] Electronically authenticated by: [id number] Y Date: 03/21/2025 15:29
--- NOTE | 2025-03-21 12:30 | PM.HP ---
HPI H&P: HPI History of Present Illness Chief complaint: VOMITING, HYPOXIA, ACUTE BRONCHITIS Narrative: Mrs. Kim is a 79-year-old female who came in with a few days history of cough, wheezing and congestion. Patient was coughing so much that she would vomit after that. She denies abdominal pain. No diarrhea. No fever or chills. No chest pain palpitation. Patient is known to have COPD. She is not on home oxygen. She does not have nebulizer machine. Opioid HPI Opioid Management Most Recent Pain and Opioid Data: Last Pain Scale 7 10/28/23, 17:05 Last Pain Intensity 7 10/28/23, 10:06 Last Pain Assessment 03/20/25, 23:00 Last ORT Total Score 0 03/20/25, 22:17 Last ORT Risk Category Low Risk 03/20/25, 22:17 Review of Systems ROS Status of ROS 10 or more systems reviewed and unremarkable except as noted in history and below [facility] Medical History (Updated 03/21/25 @ 12:36 by Santosh Loredo MD) Chronic right shoulder pain ?M25.511 - Pain in right shoulder (ICD-10) ?G89.29 - Other chronic pain (ICD-10) History of fall ?Z91.81 - History of falling (ICD-10) COPD (chronic obstructive pulmonary disease) ?J44.9 - Chronic obstructive pulmonary disease, unspecified (ICD-10) Depression ?F32.A - Depression, unspecified (ICD-10) Bladder infection ?N30.90 - Cystitis, unspecified without hematuria (ICD-10) Hyperlipidemia ?E78.5 - Hyperlipidemia, unspecified (ICD-10) Family History Father Family history of cancer Family history of diabetes mellitus Mother Family history of cancer Aunt Family history of COPD (chronic obstructive pulmonary disease) Social History (Updated 03/20/25 @ 22:39 by Renetta Simmons RN) Within the past year, how often did you have a drink containing alcohol: 4 or more times a week Within the past year, how many standard drinks containing alcohol did you have on a typical day: 1 or 2 Total score: 0 Score interpretation: A score less than 3 is consistent with normal alcohol consumption. Smoking status: Former smoker Non-prescribed substance use: denies use Highest level of school completed/degree received: Bachelor's degree Little interest or pleasure in doing things: not at all Feeling down, depressed, or hopeless: not at all Meds Home Medications and Allergies Home Medications ?Medication ?Instructions ?Recorded ?Confirmed ?Type albuterol sulfate 2.5 mg/3 mL 2.5 mg inhalation QID PRN 02/18/23 03/20/25 History (0.083 %) solution for nebulization shortness of breath or wheezing atorvastatin 20 mg tablet 20 mg PO QPM 02/18/23 03/21/25 History cholecalciferol (vitamin D3) 25 2,000 unit PO DAILY 02/18/23 03/20/25 History mcg (1,000 unit) capsule fluticasone fur. 200 mcg-umeclid 1 inh inhalation Q24H 02/18/23 03/20/25 History 62.5 mcg-vilant 25 mcg inhalat.powder (Trelegy Ellipta) ferrous sulfate 325 mg (65 mg 325 mg PO DAILY 10/25/23 03/20/25 History iron) tablet (FeroSul) sertraline 25 mg tablet 25 mg PO Q24H 10/25/23 03/20/25 History alendronate 70 mg tablet 70 mg PO QWEEK 03/20/25 03/21/25 History docusate sodium 100 mg capsule 100 mg PO .QD 03/20/25 03/21/25 History gabapentin 300 mg capsule 300 mg PO TID 03/20/25 03/21/25 History Allergies Allergy/AdvReac Type Severity Reaction Status Date / Time No Known Drug Allergies Allergy Verified 05/02/23 16:03 Exam Narrative Exam Narrative: [pt is awake and alert. oriented to place, time and person HEENT: [place] conjunctiva and NL buccal mucosa Neck: Supple, no tenderness Endocrine: No Thyromegaly. Vascular: No JVD or carotid bruit. Lymphatic: No cervical lymphadenopathy. Chest: Bilateral wheezing or rhonchi. Heart RRR, no extra sound or murmur. Abd: Soft, no tenderness, no rebound and no rigidity. Increase abd girth therefore clinically I could not exclude the possibility of intra abd mass or organomegaly. LE: No cyanosis or clubbing, no varices or edema. Neuro: A A O. Nl speech, comprehension and attention. Nl and symetrical motor and tone examination through out. []] Constitutional Vital Signs, click to edit/add: Last Vital Signs Temp 97.8 F 03/21/25 08:24 Pulse 84 03/21/25 12:04 Resp 20 03/21/25 08:24 BP 111/70 03/21/25 08:24 Pulse Ox 95 03/21/25 08:08 O2 Del Method Nasal Cannula 03/21/25 08:08 O2 Flow Rate 2 03/21/25 08:08 Results Labs Labs: Short CBC 03/20/25 03/21/25 Range/Units 17:48 05:53 WBC 7.6 8.1 (4.0-11.0) 10^3/uL Hgb 12.9 17.6 H (12.0-16.0) g/dL Hct 40.2 54.1 H (36.0-48.0) % Plt Count 259 144 L (150-450) 10^3/uL BMP 03/20/25 03/21/25 17:48 05:53 Sodium 138 139 Potassium 4.0 4.5 Chloride 104 105 Carbon Dioxide 26.3 23.4 BUN 21.0 H 22.0 H Creatinine 0.93 1.23 H Glucose 115 H 192 H Calcium 9.0 8.8 Liver Function 03/21/25 Range/Units 05:53 Total Bilirubin 0.3 (0.2-1.0) mg/dL AST 16 (15-37) U/L ALT 13 L (14-59) U/L Alkaline Phosphatase 90 (46-116) U/L Albumin 2.5 L (3.4-5.0) g/dL Assessment and Plan Assessment and Plan (1) Hypoxemia: (2) Nausea & vomiting: (3) Acute exacerbation of COPD with asthma: (4) Acute bronchitis: Plan Acute COPD exacerbation, significant wheezing or rhonchi noted on the chest exam. Acute bronchitis, probable bronchopneumonia Acute hypoxic respiratory failure secondary to above. 88% on room air associated with tachypnea. Patient smoked for 30 years in the past. She quit about 20 years ago I started patient on oxygen supplementation. I started patient on albuterol Atrovent I started patient on doxycycline intravenously I started patient on Solu-Medrol twice a day. I requested COVID, RSV and influenza which came back negative. Patient may have other viruses which may include but not limited to parainfluenza, meta human pneumo virus not being tested here Requested CT chest to see if patient has any infiltrative pneumonia not seen on chest x-ray and rule out underlying malignancy. No lower extremities edema or tenderness to suggest DVT. No suspicion for pulmonary embolism. Home O2 eval prior to discharge Low-dose radiation CAT scan of the chest yearly to screen for lung cancer to be arranged by PCP given her previous smoking history. Vomiting without any abdominal pain. Likely secondary to significant spasmodic cough. Monitor and assess further. Mild cognitive loss. Able to provide simple information. Unable to provide details. Her is able to. She may have underlying neurodegenerative disorder. She may have vascular dementia. This will need to be followed up by PCP in the outpatient setting. May need to have further investigation Depression and anxiety on Zoloft and gabapentin Osteoporosis on bisphosphonate Chronic medical conditions not listed above, incidental findings seen on labs and imaging. These would need to be addressed. Could be addressed when time and condition are appropriate. Could be addressed in the outpatient setting by PCP collaboration with other needed outpatient providers. I discussed her case with her at the bedside
[2025-03-21] MEDS: GABAPENTIN 300 MG CAPSULE PO ×2 (13:08→21:22)
[2025-03-21] MEDS: CHOLECALCIFEROL (VITAMIN D3) 25 MCG/1,000 UNITS TABLET 50 MCG PO (13:09)
[2025-03-21] MEDS: DOCUSATE SODIUM 100 MG CAPSULE PO (13:09)
[2025-03-21] MEDS: SERTRALINE HCL 50 MG TABLET 25 MG PO (13:09)
[2025-03-21] MEDS: ATORVASTATIN CALCIUM 20 MG TABLET PO (19:59)
[2025-03-21 23:33] LABS: Glucose Urine UA NEGATIVE (NEGATIVE)
[2025-03-21 23:42] LABS: Cast Seen? NONE SEEN #/LPF (NONE SEEN); Crystals Seen? None Seen #/HPF (None Seen); Urine Culture Indicated NO
[2025-03-22] VITALS (11 sets, daily range): BP systolic 107–137; BP diastolic 55–76; PULSE 63–95; TEMP 36.4–36.8; O2SAT 93–96
[2025-03-22 05:11] LABS: Hematocrit 34.3 % (36.0-48.0); Hemoglobin 11.1 g/dL (12.0-16.0); Mean Corpuscular HGB Conc 32.4 g/dL (29.9-35.2); Mean Corpuscular Hemoglobin 29.8 pg (26.7-34.0); Mean Corpuscular Volume 92.2 fL (81.0-99.0); Platelet Count 232 10^3/uL (150-450); Red Blood Count 3.72 10^6/uL (4.20-5.40); White Blood Count 16.8 10^3/uL (4.0-11.0)
[2025-03-22 05:23] LABS: Anion Gap 9.7; Blood Urea Nitrogen 33.0 mg/dL (7.0-18.0); Calcium 8.8 mg/dL (8.5-10.1); Carbon Dioxide 24.8 mmol/L (21.0-32.0); Chloride 107 mmol/L (98-107); Estimated GFR (African America >60 (>=60 mL/min/1.73m^2); Estimated GFR (Non-African Ame 50 (>=60 mL/min/1.73m^2); Glucose 167 mg/dL (74-106); Potassium 4.5 mmol/L (3.5-5.1); Sodium 137 mmol/L (136-145)
[2025-03-22] MEDS: GABAPENTIN 300 MG CAPSULE PO ×2 (05:26→21:35)
--- OUTSIDE RECORDS SUMMARY | 2025-03-22 06:23 | XMS_ITS | CCD ---
Author Organization [facility] Care Team Providers Care Flatwork Presser Name Role Phone Lety Flynn Unavailable Anatoliy Nunez Unavailable Laron Gomes Unavailable Lety Flynn Unavailable Juliana Ye Unavailable SARA Flynn Primary Care Provider SARA Flynn Attending Provider [phone] SARA Flynn Referring Provider DO Pete Erazo II Attending Provider Mckenzie Bates Unavailable SARA Flynn Primary Care Provider SARA Flynn Attending Provider SARA Flynn Referring Provider DO Pete Erazo II Attending Provider TRENTON Samson Attending Provider [phone] SARA Flynn Primary Care Provider SARA Flynn Referring Provider DO Pete Erazo II Attending Provider [phone] SARA Flynn Attending Provider [phone] MD Elsy Dumas Referring Provider Cornel Lopez Unavailable SARA Flynn Primary Care Provider MD Cornel Lopez Attending Provider [phone] TRENTON Valenzuela Emergency Provider SARA Flynn Attending Provider SARA Flynn Referring Provider [phone] DO Pete Erazo II Attending Provider LETY FLYNN Primary Care Physician [phone] Joshua Watts Unavailable Asaad, Imad Unavailable ASRA Flynn Primary Care Provider SARA Flynn Attending [...] Care Provider DeWilde DO, Petra Attending Provider [phone] Unavailable Primary Care Provider Unavailabl e DeWilde DO, Petra Primary Care Provider DeWilde DO, Petra Attending Provider Pete Erazo DO Other Provider Pete Erazo DO Other Provider Pete [...] Medication Allergies] Propensity to adverse reactions (disorder) [facility] Repository Medications Current Medications Medication Drug [...] 07, 2024 2:33pm Start: 04-12-2023 End: 10-07-2024 Hyfvwomhgwl-Entubfiaz-Btvbjg er (Trelegy Ellipta) 200-62.5-25 mcg Blister With [...] BID, # 30 caplet(s), Refills(s) 0, Pharmacy: [facility]/pharmacy #[id number], 161, cm, 09/17/23 12:54:00 EST, Height/Length Dosing, 56, kg, 09/17/23 12:54:00 EST, Weight Dosing Start Date: 10/21/23 Status: Ordered Start: 09-17-2023 End: 11-16-2023 take 1 capsule by mouth once daily Macrobid 100 mg Cap 100 mg = 1 cap(s), Oral, Daily, X 30 day(s), # 30 cap(s), Refills(s) 1, Pharmacy: [facility]/pharmacy #[id number], 161, cm, 09/17/23 12:54:00 EST, Height/Length Dosing, 56, kg, 09/17/23 12:54:00 EST, Weight Dosing Start Date: 09/17/23 Stop Date: 11/16/23 Status: Ordered Start: 08-23-[address] [facility] twice daily Macrobid 100 mg Cap 100 mg = 1 cap(s), Oral, BID, # 30 caplet(s), Refills(s) 0, Pharmacy: [facility]/pharmacy #[id number], 161, cm, 06/07/23 10:48:00 EDT, Height/Length [...] day(s), # 74 cap(s), Refills(s) 0, [id number] 161, cm, 06/07/23 10:48:00 EDT, Height/Length Dosing, 56, kg, 05/20/23 13:47:00 EDT, Weight Dosing Start Date: 06/11/23 Stop Date: 08/17/23 Status: Ordered take [address] [facility] every twelve hours Macrobid 100 [...] Drug Class(es) Dates Sig (Normalized) Sig (Original) [id number] 200 actuat albuterol 0.09 mg/actuat metered dose [...] day(s), # 2 cap(s), Refills(s) 0, Pharmacy: [facility]/pharmacy #[id number], 161, cm, 05/20/23 13:47:00 EDT, Height/Length [...] 12, 2023 12:23pm Start: 08-24-2022 End: 04-12-2023 Phguihmcszt-Ajtvsimbn-Ndkdns er (Trelegy Ellipta) 100-62.5-25 mcg Blister With [...] May 17, 2023 3:25pm polyethylene glycol 3350 86316 mg powder for oral solution (20 sources) [...] Reference Range Facility CT chest wo [facility] 01-06-2025 CT chest [place] [facility] [place] [address] CT Scan Report Signed Patient: Jose Kim MR#: [id number] 6 : 1945 Acct:[id number] Age/Sex: 79 / F ADM Date: 01/08/25 Loc: Room: Type: [facility] RCR Attending Dr: Petra Holliday DO [...] Díaz M.D. 01/06/2025 1:11 PM Dictation Location: [place] [address] Transcribed By: [facility] 01/06/25 1311 Dictated By: Angelica Díaz MD 01/06/25 1247 Signed By: 01/06/25 1311 Normal [facility] Alanine aminotransferase [En zymatic activity/volume] in Serum or PlasmaOrdered By: Pete Erazo on 12-17-2024 ALT [Catalytic activity/Vol] Alanine aminotransferase [Enzymatic activity/volume] in Serum or Plasma [facility] Albumin [Mass/volume] in Ser um or Plasma by Bromocresol green (BCG) dye binding methoOrdered By: Pete Erazo on 12-17-2024 Albumin BCG dye [Mass/Vol] Albumin [Mass/volume] in Serum or Plasma by Bromocresol green (BCG) dye binding metho 3.5-5.7 [facility] Alkaline phosphatase [Enzyma tic activity/volume] in Serum or PlasmaOrdered By: Pete Erazo on 12-17-2024 ALP [Catalytic activity/Vol] Alkaline phosphatase [Enzymatic activity/volume] in Serum or Plasma High 34-104 [facility] Aspartate aminotransferase [ Enzymatic activity/volume] in Serum or PlasmaOrdered By: Pete Erazo on 12-17-2024 AST [Catalytic activity/Vol] Aspartate aminotransferase [Enzymatic activity/volume] in Serum or Plasma 13-39 [facility] Basophils Auto (Bld) [#/Vol] Ordered By: Pete Erazo on 12-17-2024 Basophils (Bld) [#/Vol] Automated basophil count 0.0-0.2 [facility] Basophils/100 WBC Auto (Bld) Ordered By: Pete Erazo on 12-17-2024 Basophils/100 WBC (Bld) Automated basophil % . [facility] Bilirubin.total [Mass/volume ] in Serum or PlasmaOrdered By: Pete Erazo on 12-17-2024 Bilirubin [Mass/Vol] Bilirubin.total [Mass/volume] in Serum or Plasma 0.3-1.0 [facility] CBC W Auto Differential pane l (Bld)on 12-17-2024 Basophils (Bld) [#/Vol] 0 10*3/uL 0.0 - 0.2 10*3/uL [facility] Basophils/100 WBC Manual cnt (Syn fld) 0.5 % . [facility] Eosinophils (Bld) [#/Vol] 0.2 10*3/uL 0.0 - 0.45 10*3/uL [facility] Eosinophils/100 WBC Manual cnt (Syn fld) 2.8 % . [facility] Erythrocyte distribution width (RBC) [Ratio] 13.8 % 11.9 - 15.3 % [facility] Hematocrit (Bld) [Volume fraction] 38.9 % 34.0 - 46.4 % [facility] Hemoglobin (Bld) [Mass/Vol] 12.8 g/dL 11.8 - 15.4 g/dL [facility] Lymphocytes (Bld) [#/Vol] 1.3 10*3/uL 1.00 - 4.8 10*3/uL [facility] Lymphocytes/100 WBC Manual cnt (Syn fld) 16 % . [facility] MCH (RBC) [Entitic mass] 29.9 pg 24.7 - 34.3 pg [facility] MCHC (RBC) [Mass/Vol] 32.8 g/dL 32.0 - 35.0 g/dL [facility] MCV (RBC) [Entitic vol] 91.2 fL 80 - 100 fL [facility] Monocytes (Bld) [#/Vol] 0.7 10*3/uL 0.0 - 0.8 10*3/uL [facility] Monocytes+Macrophages/1 00 WBC Manual cnt (Syn fld) 8.4 % . [facility] Neutrophils (Bld) [#/Vol] 5.8 10*3/uL 1.8 - 7.7 10*3/uL [facility] Neutrophils/100 WBC Manual cnt (Syn fld) 72.3 % . [facility] NRBC 0 /100{WBC} 0 - 0.5 /100{WBC} [facility] Platelet mean volume (Bld) [Entitic vol] 8 fL 6.3 - 10.7 fL [facility] Platelets (Bld) [#/Vol] 282 10*3/uL 150 - 450 10*3/uL [facility] RBC LM.HPF (Urine sed) [#/Area] 4.27 10*6/uL 3.60 - 5.00 10*6/uL [facility] WBC (Bld) [#/Vol] 8 10*3/uL 3.8 - 11.6 10*3/uL [facility] WBC LM.HPF (Urine sed) [#/Area] 8 10*3/uL 3.8 - 11.6 10*3/uL Replaced by [facility] Calcium [Mass/volume] in Ser um or PlasmaOrdered By: Pete Erazo on 12-17-2024 Calcium [Mass/Vol] Calcium [Mass/volume ] in Serum or Plasma 8.6-10.3 [facility] Carbon dioxide, total [Moles /volume] in Serum or PlasmaOrdered By: Pete Erazo on 12-17-2024 CO2 [Moles/Vol] Carbon dioxide, tota l [Moles/volume] in Serum or Plasma 21.0-31.0 [facility] Chloride [Moles/volume] in S asiya or PlasmaOrdered By: Pete Erazo on 12-17-2024 Chloride [Moles/Vol] Chloride [Moles/vol ume] in Serum or Plasma 98-107 [facility] Complete Blood Count Auto Di ffon 12-17-2024 Basophils (Bld) [#/Vol] 0.0 10*3/uL Normal 0.0-0.2 [facility] Comment on above: Result Comment: PERF ORMED BY: [place] [address] PATHOLOGIST HIDE AND SKIN FLESHING MACHINE OPERATOR KATELYNN HAMILTON M.D. Performed By: #### K APPA, SULAIMAN SERUM, SPE #### [facility] , #### CMP #### [address] Basophils/100 WBC (Bld) 0.5 % Normal . T jessika [facility] Comment on above: Performed By: #### K APPA, SULAIMAN SERUM, SPE #### [facility] , #### CMP #### [address] Eosinophils (Bld) [#/Vol] 0.2 10*3/uL Normal 0.0-0.45 [facility] Comment on above: Performed By: #### K APPA, SULAIMAN SERUM, SPE #### [facility] , #### CMP #### [address] Eosinophils/100 WBC (Bld) 2.8 % Normal . [facility] Comment on above: Performed By: #### K APPA, SULAIMAN SERUM, SPE #### [facility] , #### CMP #### [address] Erythrocyte distribution width (RBC) [Ratio] 13.8 % Normal 11.9-15.3 [facility] Comment on above: Performed By: #### K APPA, SULAIMAN SERUM, SPE #### [facility] , #### CMP #### [address] Hematocrit (Bld) [Volume fraction] 38.9 % Normal 34.0-46.4 [facility] Comment on above: Performed By: #### K APPA, SULAIMAN SERUM, SPE #### [facility] , #### CMP #### [address] Hemoglobin (Bld) [Mass/Vol] 12.8 g/dL Normal 11.8-15.4 [facility] Comment on above: Performed By: #### K APPA, SULAIMAN SERUM, SPE #### [facility] , #### CMP #### [address] Lymphocytes (Bld) [#/Vol] 1.3 10*3/uL Normal 1.00-4.8 [facility] Comment on above: Performed By: #### K APPA, SULAIMAN SERUM, SPE #### [facility] , #### CMP #### [address] Lymphocytes/100 WBC (Bld) 16.0 % Normal . [facility] Comment on above: Performed By: #### K APPA, SULAIMAN SERUM, SPE #### [facility] , #### CMP #### [address] MCH (RBC) [Entitic mass] 29.9 pg Normal 24.7-34.3 [facility] Comment on above: Performed By: #### K APPA, SULAIMAN SERUM, SPE #### [facility] , #### CMP #### [address] MCV (RBC) [Entitic vol] 91.2 fL Normal 80-100 [facility] Comment on above: Performed By: #### K APPA, SULAIMAN SERUM, SPE #### [facility] , #### CMP #### [address] Mean Corpuscular HGB Conc 32.8 g/dL Normal 32.0-35.0 [facility] Comment on above: Performed By: #### K APPA, SULAIMAN SERUM, SPE #### [facility] , #### CMP #### [place] [address] [place] Monocytes (Bld) [#/Vol] 0.7 10*3/uL Normal 0.0-0.8 [facility] Comment on above: Performed By: #### K APPA, SULAIMAN SERUM, SPE #### [facility] , #### CMP #### [address] Monocytes/100 WBC (Bld) 8.4 % Normal . [facility] Comment on above: Performed By: #### K APPA, SULAIMAN SERUM, SPE #### [facility] , #### CMP #### [place] [address] [place] Neutrophils (Bld) [#/Vol] 5.8 10*3/uL Normal 1.8-7.7 [facility] Comment on above: Performed By: #### K APPA, SULAIMAN SERUM, SPE #### [facility] , #### CMP #### [place] [address] [place] Neutrophils/100 WBC (Bld) 72.3 % Normal . [facility] Comment on above: Performed By: #### K APPA, SULAIMAN SERUM, SPE #### [facility] , #### CMP #### [place] [address] [place] NRBC% 0.0 /100{WBC} Normal 0-0.5 [facility] Comment on above: Performed By: #### K APPA, SULAIMAN SERUM, SPE #### [facility] , #### CMP #### [address] Platelet mean volume (Bld) [Entitic vol] 8.0 fL Normal 6.3-10.7 [facility] Comment on above: Performed By: #### K APPA, SULAIMAN SERUM, SPE #### [facility] , #### CMP #### [address] Platelets (Bld) [#/Vol] 282 10*3/uL Normal 150-450 [facility] Comment on above: Performed By: #### K APPA, SULAIMAN SERUM, SPE #### [facility] , #### CMP #### [address] RBC (Bld) [#/Vol] 4.27 10*6/uL Normal 3.60-5.00 [facility] Comment on above: Performed By: #### K APPA, SULAIMAN SERUM, SPE #### [facility] , #### CMP #### [address] WBC (Bld) [#/Vol] 8.0 10*3/uL Normal 3.8-11.6 [facility] Comment on above: Performed By: #### K APPA, SULAIMAN SERUM, SPE #### [facility] , #### CMP #### [address] Comprehensive Metabolic Pane norma 12-17-2024 Albumin [Mass/Vol] 3.7 g/dL Normal 3.5-5.7 [facility] Comment on above: Performed By: #### K APPA, SULAIMAN SERUM, SPE #### [facility] , #### CMP #### [facility] [address] [place] [address] Albumin/Globulin [Mass ratio] 0.9 {ratio} Normal [facility] Comment on above: Performed By: #### K APPA, SULAIMAN SERUM, SPE #### [facility] , #### CMP #### [address] ALP [Catalytic activity/Vol] 106 U/L High 34-104 [facility] Comment on above: Result Comment: PERF ORMED BY: [place] [address] PATHOLOGIST HIDE AND SKIN FLESHING MACHINE OPERATOR KATELYNN HAMILTON M.D. Performed By: #### K APPA, SULAIMAN SERUM, SPE #### [facility] , #### CMP #### [address] ALT [Catalytic activity/Vol] 12 U/L Normal 7-52 [facility] Comment on above: Performed By: #### K APPA, SULAIMAN SERUM, SPE #### [facility] , #### CMP #### [address] Anion gap [Moles/Vol] 8.7 mmol/L Normal 6.0-15.0 [facility] Comment on above: Performed By: #### K APPA, SULAIMAN SERUM, SPE #### [facility] , #### CMP #### [address] AST [Catalytic activity/Vol] 16 U/L Normal 13-39 [facility] Comment on above: Performed By: #### K APPA, SULAIMAN SERUM, SPE #### [facility] , #### CMP #### [address] Bilirubin [Mass/Vol] 0.3 mg/dL Normal 0.3-1.0 [facility] Comment on above: Performed By: #### K APPA, SULAIMAN SERUM, SPE #### [facility] , #### CMP #### [address] Calcium [Mass/Vol] 9.3 mg/dL Normal 8.6-10.3 [facility] Comment on above: Performed By: #### K APPA, SULAIMAN SERUM, SPE #### [facility] , #### CMP #### [address] Chloride [Moles/Vol] 106 mmol/L Normal 98-107 [facility] Comment on above: Performed By: #### K APPA, SULAIMAN SERUM, SPE #### [facility] , #### CMP #### [address] CO2 [Moles/Vol] 29.3 mmol/L Normal 21.0-31.0 [facility] Comment on above: Performed By: #### K APPA, SULAIMAN SERUM, SPE #### [facility] , #### CMP #### [address] Creatinine [Mass/Vol] 0.86 mg/dL Normal 0.60-1.20 [facility] Comment on above: Performed By: #### K APPA, SULAIMAN SERUM, SPE #### [facility] , #### CMP #### [place] [address] [place] GFR/1.73 sq M.predicted MDRD (S/P/Bld) [Vol rate/Area] mL/min/{1.73_m2} Normal [facility] Comment on above: Performed By: #### K APPA, SULAIMAN SERUM, SPE #### [facility] , #### CMP #### [place] [address] [place] Globulin (S) [Mass/Vol] 4.2 g/dL Normal T [facility] Comment on above: Performed By: #### K APPA, SULAIMAN SERUM, SPE #### [facility] , #### CMP #### [address] Glucose [Mass/Vol] 93 mg/dL Normal 70-100 [facility] Comment on above: Result Comment: [facility] Glucose Reference Range is dependent on time and content of last meal. Glucose of more than 200 mg/dL in a nonstressed, ambulatory subject supports the diagnosis of Diabetes Mellitus. ADA recommended reference range Performed By: #### K APPA, SULAIMAN SERUM, SPE #### [facility] , #### CMP #### [address] Potassium [Moles/Vol] 4.0 mmol/L Normal 3.5-5.1 [facility] Comment on above: Performed By: #### K APPA, SULAIMAN SERUM, SPE #### [facility] , #### CMP #### [place] [address] [place] Protein [Mass/Vol] 7.9 g/dL Normal 6.4-8.9 [facility] Comment on above: Performed By: #### K APPA, SULAIMAN SERUM, SPE #### [facility] , #### CMP #### [place] [address] [place] Sodium [Moles/Vol] 140 mmol/L Normal 136-145 [facility] Comment on above: Performed By: #### K APPA, SULAIMAN SERUM, SPE #### [facility] , #### CMP #### [place] [address] [place] Urea nitrogen [Mass/Vol] 22 mg/dL Normal 7-25 [facility] Comment on above: Performed By: #### K APPA, SULAIMAN SERUM, SPE #### [facility] , #### CMP #### [facility] [address] Comprehensive metabolic pane [facility] 12-17-2024 Albumin [Mass/Vol] 3.7 g/dL 3.5 - 5.7 g/dL [facility] Albumin/Globulin [Mass ratio] 0.9 {ratio} [facility] ALP [Catalytic activity/Vol] 106 U/L High 34 - 104 U/L [facility] ALT [Catalytic activity/Vol] 12 U/L 7 - 52 U/L [facility] Anion gap [Moles/Vol] 8.7 mmol/L 6.0 - 15.0 meq/L [facility] AST [Catalytic activity/Vol] 16 U/L 13 - 39 U/L [facility] Bilirubin [Mass/Vol] 0.3 mg/dL 0.3 - 1 .0 mg/dL [facility] Calcium [Mass/Vol] 9.3 mg/dL 8.6 - 10. 3 mg/dL [facility] Chloride [Moles/Vol] 106 mmol/L 98 - 10 7 mmol/L [facility] CO2 [Moles/Vol] 29.3 mmol/L 21.0 - 31.0 mmol/L [facility] Creatinine (U) [Mass/Vol] 0.86 mg/dL 0.60 - 1.20 mg/dL [facility] ESTIMATED GFR mL/Min [facility] Globulin (S) [Mass/Vol] 4.2 g/dL [facility] Glucose [Mass/Vol] 93 mg/dL 70 - 100 mg/dL [facility] Comment on above: Random Glucose Refer ence Range is dependent on time and content of last meal. Glucose of more than 200 mg/dL in a nonstressed, ambulatory subject supports the diagnosis of Diabetes Mellitus. ADA recommended reference range Interpretation and review of laboratory results [facility] Potassium [Moles/Vol] 4 mmol/L 3.5 - 5.1 mmol/L [facility] Protein [Mass/Vol] 7.9 g/dL 6.4 - 8.9 g/dL [facility] Sodium [Moles/Vol] 140 mmol/L 136 - 145 mmol/L [facility] Urea nitrogen [Mass/Vol] 22 mg/dL 7 - 25 mg/dL Replaced by [facility] Creatinine [Mass/volume] in Serum or PlasmaOrdered By: Pete Erazo on 12-17-2024 Creatinine [Mass/Vol] Creatinine [Mass/v olume] in Serum or Plasma 0.60-1.20 [facility] Eosinophils Auto (Bld) [#/Vo l]Ordered By: Pete Erazo on 12-17-2024 Eosinophils (Bld) [#/Vol] Automated eosinophil count 0.0-0.45 [facility] Eosinophils/100 WBC Auto (Bl d)Ordered By: Pete Erazo on 12-17-2024 Eosinophils/100 WBC (Bld) Automated eosinophil % . [facility] Erythrocyte distribution wid th Auto (RBC) [Ratio]Ordered By: Pete Erazo on 12-17-2024 Erythrocyte distribution width (RBC) [Ratio] Erythrocyte distribution width [Ratio] by Automated count 11.9-15.3 [facility] Free K+L LT Chains, Qn, Son 12-17-2024 Free Wild Rose Light Chains, S 86.1 mg/L High 3.3-19.4 [facility] Comment on above: Performed By: #### K APPA, SULAIMAN SERUM, SPE #### [facility] , #### CMP #### [facility] [address] [place] [address] Free Lambda Light Chains, S 43.9 mg/L High 5.7-26.3 [facility] Comment on above: Performed By: #### K APPA, SULAIMAN SERUM, SPE #### [facility] , #### CMP #### [facility] [address] [place] [address] [place] Wild Rose/Lambda Ratio, S 1.96 High 0.26-1.65 [facility] Comment on above: Result Comment: Perf ormed at: CB - [facility] [address] [id number] [employer]: Raghav Murphy PhD, Phone: [phone] PERFORMED BY: [place] [address] PATHOLOGIST HIDE AND SKIN FLESHING MACHINE OPERATOR KATELYNN HAMILTON M.D. Performed By: #### K APPA, SULAIMAN SERUM, SPE #### [facility] , #### CMP #### [facility] [address] [place] [address] [place] Globulin Calc (S) [Mass/Vol] Ordered By: Pete Erazo on 12-17-2024 Globulin (S) [Mass/Vol] Serum globulin measurement by calculation (mass/volume) [facility] Glucose [Mass/volume] in Ser um or PlasmaOrdered By: Pete Erazo on 12-17-2024 Glucose [Mass/Vol] Glucose [Mass/volume ] in Serum or Plasma 70-100 [facility] Comment on above: ADA recommended refe rence rangeRandom Glucose Reference Range is dependent on time and content of last meal. Glucose of more than 200 mg/dL in a nonstressed, ambulatory subject supports the diagnosis of Diabetes Mellitus. Hematocrit Auto (Bld) [Volum e fraction]Ordered By: Pete Erazo on 12-17-2024 Hematocrit (Bld) [Volume fraction] Hematocrit [Volume Fraction] of Blood by Automated count 34.0-46.4 [facility] Hemoglobin [Mass/volume] in BloodOrdered By: Pete Erazo on 12-17-2024 Hemoglobin (Bld) [Mass/Vol] Hemoglobin [Mass/volume] in Blood 11.8-15.4 [facility] Immunofixation,Serumon 12-17 Immunofixation, Serum Comment Normal . [facility] Comment on above: Result Comment: No m onoclonality detected. Performed By: #### K APPA, SULAIMAN SERUM, SPE #### [facility] , #### CMP #### [facility] [address] [place] [address] [place] Immunoglobulin A, Serum 282 mg/dL Normal 64-422 [facility] Comment on above: Performed By: #### K APPA, SULAIMAN SERUM, SPE #### [facility] , #### CMP #### [facility] [address] [place] [id number] [place] Immunoglobulin G 2776 mg/dL High 586-1602 [facility] Comment on above: Performed By: #### K APPA, SULAIMAN SERUM, SPE #### [facility] , #### CMP #### [facility] [address] Immunoglobulin M, Serum 137 mg/dL Normal 26-217 [facility] Comment on above: Result Comment: Perf ormed at: CB - [facility] [place] [id number] [employer]: Raghav Murphy PhD, Phone: [phone] Performed By: #### K APPA, SULAIMAN SERUM, SPE #### [facility] , #### CMP #### [facility] [address] Leukocytes [#/volume] correc tiffanie for nucleated erythrocytes in Blood by Automated counOrdered By: Pete Erazo on 12-17-2024 WBC corrected for nucl RBC Auto (Bld) [#/Vol] Leukocytes [#/volume] corrected for nucleated erythrocytes in Blood by Automated coun 3.8-11.6 [facility] Lymphocytes Auto (Bld) [#/Vo l]Ordered By: Pete Erazo on 12-17-2024 Lymphocytes (Bld) [#/Vol] Lymphocytes [#/volume] in Blood by Automated count 1.00-4.8 [facility] Lymphocytes/100 WBC Auto (Bl d)Ordered By: Pete Erazo on 12-17-2024 Lymphocytes/100 WBC (Bld) Lymphocytes/100 leukocytes in Blood by Automated count . [facility] MCH Auto (RBC) [Entitic mass ]Ordered By: Pete Erazo on 12-17-2024 MCH (RBC) [Entitic mass] MCH [Entitic mass] by Automated count 24.7-34.3 [facility] MCHC Auto (RBC) [Mass/Vol]Or dered By: Pete Erazo on 12-17-2024 MCHC (RBC) [Mass/Vol] MCHC [Mass/volume] by Automated count 32.0-35.0 [facility] MCV Auto (RBC) [Entitic vol] Ordered By: Pete Erazo on 12-17-2024 MCV (RBC) [Entitic vol] MCV [Entitic vol ume] by Automated count 80-100 [facility] Monocytes Auto (Bld) [#/Vol] Ordered By: Pete Erazo on 12-17-2024 Monocytes (Bld) [#/Vol] Automated blood monocyte count 0.0-0.8 [facility] Monocytes/100 WBC Auto (Bld) Ordered By: Pete Erazo on 12-17-2024 Monocytes/100 WBC (Bld) Automated monocyte % . [facility] Neutrophils Auto (Bld) [#/Vo l]Ordered By: Pete Erazo on 12-17-2024 Neutrophils (Bld) [#/Vol] Neutrophils [#/volume] in Blood by Automated count 1.8-7.7 [facility] Neutrophils/100 WBC Auto (Bl d)Ordered By: Pete Erazo on 12-17-2024 Neutrophils/100 WBC (Bld) Automated neutrophil % . [facility] No Panel InformationOrdered By: Pete Erazo on 12-17-2024 Estimated GFR (CKD-EPI) > 60.0 mL/Min [facility] Creatinine Clearance (Chem N/A [facility] Protein Electrophoresis M-Hernando Not observed g/dL Not Observed [facility] Protein Electrophoresis Note Comment . [facility] Comment on above: Protein electrophore sis scan will follow via computer,mail, or oncologist delivery.Performed at: [address] [id number] Director: Raghav Murphy PhD, Phone: [phone] Nucleated erythrocytes [Pres ence] in Blood by Automated countOrdered By: Pete Erazo on 12-17-2024 Nucleated RBC Auto Ql (Bld) Nucleated erythrocytes [Presence] in Blood by Automated count 0-0.5 [facility] Platelet mean volume Auto (B ld) [Entitic vol]Ordered By: Pete Erazo on 12-17-2024 Platelet mean volume (Bld) [Entitic vol] Platelet mean volume [Entitic volume] in Blood by Automated count 6.3-10.7 [facility] Platelets Auto (Bld) [#/Vol] Ordered By: Pete Erazo on 12-17-2024 Platelets (Bld) [#/Vol] Platelets [#/vol ume] in Blood by Automated count 150-450 [facility] Potassium [Moles/volume] in Serum or PlasmaOrdered By: Pete Erazo on 12-17-2024 Potassium [Moles/Vol] Potassium [Moles/v olume] in Serum or Plasma 3.5-5.1 [facility] Protein Electrophoresis, Ser umon 12-17-2024 Albumin [Mass/Vol] 3.0 g/dL Normal 2.9-4.4 [facility] Comment on above: Performed By: #### K APPA, SULAIMAN SERUM, SPE #### [facility] , #### CMP #### [place] [address] [place] Albumin/Globulin [Mass ratio] 0.6 {ratio} Low 0.7-1.7 [facility] Comment on above: Performed By: #### K APPA, SULAIMAN SERUM, SPE #### [facility] , #### CMP #### [facility] [address] [place] [address] [place] Fwadk-6-Kqnbxsbb 0.3 g/dL Normal 0.0-0.4 [facility] Comment on above: Performed By: #### K APPA, SULAIMAN SERUM, SPE #### [facility] , #### CMP #### [facility] [address] [place] [address] [place] Kmhys-4-Moepoefq 1.1 g/dL High 0.4-1.0 [facility] Comment on above: Performed By: #### K APPA, SULAIMAN SERUM, SPE #### [facility] , #### CMP #### [facility] [address] [place] [address] [place] Beta Globulin 1.1 g/dL Normal 0.7-1.3 [facility] Comment on above: Performed By: #### K APPA, SULAIMAN SERUM, SPE #### [facility] , #### CMP #### [address] Gamma Globulin 2.5 g/dL High 0.4-1.8 [facility] Comment on above: Performed By: #### K APPA, SULAIMAN SERUM, SPE #### [facility] , #### CMP #### [address] Globulin (S) [Mass/Vol] 5.0 g/dL High 2.2-3.9 [facility] Comment on above: Performed By: #### K APPA, SULAIMAN SERUM, SPE #### [facility] , #### CMP #### [address] M-Hernando Not Observed Normal Not Observed [facility] Comment on above: Performed By: #### K APPA, SULAIMAN SERUM, SPE #### [facility] , #### CMP #### [address] Protein [Mass/Vol] 8.0 g/dL Normal 6.0-8.5 [facility] Comment on above: Performed By: #### K APPA, SULAIMAN SERUM, SPE #### [facility] , #### CMP #### [address] SPE-Note Comment Normal . [facility] Comment on above: Result Comment: Prot ein electrophoresis scan will follow via computer, mail, or oncologist delivery. Performed at: [address] [id number] [place] [employer]: Raghav Murphy PhD, Phone: [phone] Performed By: #### K APPA, SULAIMAN SERUM, SPE #### [facility] , #### CMP #### [address] [place] [address] [facility] Protein [Mass/volume] in Ser um or PlasmaOrdered By: Pete Erazo on 12-17-2024 Protein [Mass/Vol] Protein [Mass/volume ] in Serum or Plasma 6.0-8.5 [facility] RBC Auto (Bld) [#/Vol]Ordere d By: Pete Erazo on 12-17-2024 RBC (Bld) [#/Vol] Erythrocytes [#/volu me] in Blood by Automated count 3.60-5.00 [facility] Serum free kappa light chain measurementOrdered By: Pete Erazo on 12-17-2024 Immunoglobulin light chains.kappa.free (S) [Mass/Vol] Immunoglobulin light chains.kappa.free [Mass/volume] in Serum High 3.3-19.4 [facility] Serum globulin measurement ( mass/volume)Ordered By: Pete Erazo on 12-17-2024 Globulin (S) [Mass/Vol] Serum globulin measurement (mass/volume) High 2.2-3.9 [facility] Serum immunofixation electro phoresisOrdered By: Pete Erazo on 12-17-2024 Serum Immunofixation Comment . [facility] Comment on above: No monoclonality det ected. Serum immunoglobulin free ka ppa light chains/immunoglobulin free lambda light chainsOrdered By: Pete Erazo on 12-17-2024 Immunoglobulin light chains.kappa.free/Immun oglobulin light chains.lambda.free (S) [Mass ratio] Immunoglobulin light chains.kappa.free/Immuno globulin light chains.lambda.free [Mass High 0.26-1.65 [facility] Comment on above: Performed at: [address] [id number] Director: Raghav Murphy PhD, Phone: [phone] Serum or plasma IgA measurem ent (mass/volume)Ordered By: Pete Erazo on 12-17-2024 IgA [Mass/Vol] IgA [Mass/volume] in Serum or Plasma 64-293 [facility] Serum or plasma IgG measurem ent (mass/volume)Ordered By: Pete Erazo on 12-17-2024 IgG [Mass/Vol] IgG [Mass/volume] in Serum or Plasma High 586-1602 [facility] Serum or plasma IgM measurem ent (mass/volume)Ordered By: Pete Erazo on 12-17-2024 IgM [Mass/Vol] IgM [Mass/volume] in Serum or Plasma 26-217 [facility] Comment on above: Performed at: [facility] [address] [id number] Director: Raghav Murphy PhD, Phone: [phone] Serum or plasma albumin demian urement (mass/volume)Ordered By: Pete Erazo on 12-17-2024 Albumin [Mass/Vol] Albumin [Mass/volume ] in Serum or Plasma 2.9-4.4 [facility] Serum or plasma albumin/glob ulin mass ratioOrdered By: Pete Erazo on 12-17-2024 Albumin/Globulin [Mass ratio] Serum or plasma albumin/globulin mass ratio Low 0.7-1.7 [facility] Serum or plasma alpha 1 glob ulin measurement by electrophoresis (mass/volume)Ordered By: Pete Erazo on 12-17-2024 Alpha 1 globulin Elph [Mass/Vol] Serum or plasma alpha 1 globulin measurement by electrophoresis (mass/volume) 0.0-0.4 [facility] Serum or plasma alpha 2 glob ulin measurement by electrophoresis (mass/volume)Ordered By: Pete Erazo on 12-17-2024 Alpha 2 globulin Elph [Mass/Vol] Serum or plasma alpha 2 globulin measurement by electrophoresis (mass/volume) High 0.4-1.0 [facility] Serum or plasma anion gap de terminationOrdered By: Pete Erazo on 12-17-2024 Anion gap [Moles/Vol] Serum or plasma an ion gap determination 6.0-15.0 [facility] Serum or plasma beta globuli n measurement by electrophoresis (mass/volume)Ordered By: Pete Erazo on 12-17-2024 Beta globulin Elph [Mass/Vol] Serum or plasma beta globulin measurement by electrophoresis (mass/volume) 0.7-1.3 [facility] Serum or plasma gamma globul in measurement by electrophoresis (mass/volume)Ordered By: Pete Erazo on 12-17-2024 Gamma globulin Elph [Mass/Vol] Serum or plasma gamma globulin measurement by electrophoresis (mass/volume) High 0.4-1.8 [facility] Serum or plasma immunoglobul in free lambda light chains measurement (mass/volume)Ordered By: Pete Erazo on 12-17-2024 Immunoglobulin light chains.lambda.free [Mass/Vol] Immunoglobulin light chains.lambda.free [Mass/volume] in Serum or Plasma High 5.7-26.3 [facility] Sodium [Moles/volume] in Ser um or PlasmaOrdered By: Pete Erazo on 12-17-2024 Sodium [Moles/Vol] Sodium [Moles/volume ] in Serum or Plasma 136-145 [facility] Urea nitrogen [Mass/volume] in Serum or PlasmaOrdered By: Pete Erazo on 12-17-2024 Urea nitrogen [Mass/Vol] Urea nitrogen [Mass/volume] in Serum or Plasma 7-25 [facility] WBC Auto (Bld) [#/Vol]Ordere d By: Pete Erazo on 12-17-2024 WBC (Bld) [#/Vol] Leukocytes [#/volume ] in Blood by Automated count 3.8-11.6 [facility] Folate [Mass/volume] in Seru m or PlasmaOrdered By: Petra Holliday on 10-21-2024 Folate [Mass/Vol] Folate [Mass/volume] in Serum or Plasma >5.9 [facility] Comment on above: Folate reference ran ge: >5.9 ng/mlThe WHO technical consultation on folate and vitamin [id number] has determined that folate concentrations lessthan 4 ng/ml are considered deficient. Vit. B12/Folate Profileon Cobalamin (Vitamin B12) [Mass/Vol] 261 pg/mL Normal 180-914 [facility] Comment on above: Performed By: #### K APPA, SULAIMAN SERUM, SPE #### [facility] , #### CMP #### [address] Folate 10.6 ng/mL Normal >5.9 [facility] Comment on above: Result Comment: Padmini te reference range: >5.9 ng/ml The WHO technical consultation on folate and vitamin b12 deficiencies has determined that folate concentrations less than 4 ng/ml are considered deficient. PERFORMED BY: [place] [address] PATHOLOGIST HIDE AND SKIN FLESHING MACHINE OPERATOR KATELYNN HAMILTON M.D. Performed By: #### K APPA, SULAIMAN SERUM, SPE #### [facility] , #### CMP #### [address] Vitamin B12 ser/plasOrdered By: Petra Holliday on 10-21-2024 Cobalamin (Vitamin B12) [Mass/Vol] Vitamin B12 ser/plas 180-914 [facility] Folate [Mass/volume] in Seru m or PlasmaOrdered By: Petra Holliday on 07-24-2024 Folate [Mass/Vol] Folate [Mass/volume] in Serum or Plasma >5.9 [facility] Comment on above: Folate reference ran ge: >5.9 ng/mlThe WHO technical consultation on folate and vitamin [id number] has determined that folate concentrations lessthan 4 ng/ml are considered deficient. No Panel InformationOrdered By: Petra Holliday on 07-24-2024 Protein Electrophoresis M-eHrnando Not observed g/dL Not Observed [facility] Protein Electrophoresis Note Comment . [facility] Comment on above: Protein electrophore sis scan will follow via computer,mail, or oncologist delivery.Performed at: - [facility] [id number] Director: Raghav Murphy PhD, Phone: [phone] Protein Electrophoresis, Ser umon 07-24-2024 Albumin [Mass/Vol] 3.0 g/dL Normal 2.9-4.4 [facility] Comment on above: Performed By: #### K APPA, SULAIMAN SERUM, SPE #### [facility] , #### CMP #### [facility] [address] [place] [address] Albumin/Globulin [Mass ratio] 0.6 {ratio} Low 0.7-1.7 [facility] Comment on above: Performed By: #### K APPA, SULAIMAN SERUM, SPE #### [facility] , #### CMP #### [facility] [address] [place] [address] [place] Kynfj-1-Qvgzqftc 0.3 g/dL Normal 0.0-0.4 [facility] Comment on above: Performed By: #### K APPA, SULAIMAN SERUM, SPE #### [facility] , #### CMP #### [facility] [address] [place] [address] [place] Sgege-9-Ottfnukw 1.0 g/dL Normal 0.4-1.0 [facility] Comment on above: Performed By: #### K APPA, SULAIMAN SERUM, SPE #### [facility] , #### CMP #### [facility] [address] [place] [address] [place] Beta Globulin 1.0 g/dL Normal 0.7-1.3 [facility] Comment on above: Performed By: #### K APPA, SULAIMAN SERUM, SPE #### [facility] , #### CMP #### [facility] [address] [place] [address] [place] Gamma Globulin 2.6 g/dL High 0.4-1.8 [facility] Comment on above: Performed By: #### K APPA, SULAIMAN SERUM, SPE #### [facility] , #### CMP #### [facility] [address] [place] [address] [place] Globulin (S) [Mass/Vol] 4.8 g/dL High 2.2-3.9 [facility] Comment on above: Performed By: #### K APPA, SULAIMAN SERUM, SPE #### [facility] , #### CMP #### [facility] [address] [place] [address] M-Hernando Not Observed Normal Not Observed [facility] Comment on above: Performed By: #### K APPA, SULAIMAN SERUM, SPE #### [facility] , #### CMP #### [address] Protein [Mass/Vol] 7.8 g/dL Normal 6.0-8.5 [facility] Comment on above: Performed By: #### K APPA, SULAIMAN SERUM, SPE #### [facility] , #### CMP #### [address] SPE-Note Comment Normal . [facility] Comment on above: Result Comment: Prot ein electrophoresis scan will follow via computer, mail, or oncologist delivery. Performed at: [facility] [id number] [place] [employer]: Raghav Murphy PhD, Phone: [phone] PERFORMED BY: [place] [address] PATHOLOGIST HIDE AND SKIN FLESHING MACHINE OPERATOR KATELYNN HAMILTON M.D. Performed By: #### K APPA, SULAIMAN SERUM, SPE #### [facility] , #### CMP #### [address] Serum globulin measurement ( mass/volume)Ordered By: Petra Holliday on 07-24-2024 Globulin (S) [Mass/Vol] Serum globulin measurement (mass/volume) High 2.2-3.9 [facility] Serum or plasma albumin demian urement (mass/volume)Ordered By: Petra Holliday on 07-24-2024 Albumin [Mass/Vol] Albumin [Mass/volume ] in Serum or Plasma 2.9-4.4 [facility] Serum or plasma albumin/glob ulin mass ratioOrdered By: Petra Holliday on 07-24-2024 Albumin/Globulin [Mass ratio] Serum or plasma albumin/globulin mass ratio Low 0.7-1.7 [facility] Serum or plasma alpha 1 glob ulin measurement by electrophoresis (mass/volume)Ordered By: Petra Holliday on 07-24-2024 Alpha 1 globulin Elph [Mass/Vol] Serum or plasma alpha 1 globulin measurement by electrophoresis (mass/volume) 0.0-0.4 [facility] Serum or plasma alpha 2 glob ulin measurement by electrophoresis (mass/volume)Ordered By: Petra Holliday on 07-24-2024 Alpha 2 globulin Elph [Mass/Vol] Serum or plasma alpha 2 globulin measurement by electrophoresis (mass/volume) 0.4-1.0 [facility] Serum or plasma beta globuli n measurement by electrophoresis (mass/volume)Ordered By: Petra Holliday on 07-24-2024 Beta globulin Elph [Mass/Vol] Serum or plasma beta globulin measurement by electrophoresis (mass/volume) 0.7-1.3 [facility] Serum or plasma gamma globul in measurement by electrophoresis (mass/volume)Ordered By: Petra Holliday on 07-24-2024 Gamma globulin Elph [Mass/Vol] Serum or plasma gamma globulin measurement by electrophoresis (mass/volume) High 0.4-1.8 [facility] Serum total protein measurem entOrdered By: Petra Holliday on 07-24-2024 Protein [Mass/Vol] Protein [Mass/volume ] in Serum or Plasma 6.0-8.5 [facility] Vit. B12/Folate Profileon Cobalamin (Vitamin B12) [Mass/Vol] 152 pg/mL Low 180-914 [facility] Comment on above: Performed By: #### K APPA, SULAIMAN SERUM, SPE #### [facility] , #### CMP #### [address] Folate 13.6 ng/mL Normal >5.9 [facility] Comment on above: Result Comment: Padmini te reference range: >5.9 ng/ml The WHO technical consultation on folate and vitamin b12 deficiencies has determined that folate concentrations less than 4 ng/ml are considered deficient. PERFORMED BY: [facility] [address] [place] [id number] PATHOLOGIST HIDE AND SKIN FLESHING MACHINE OPERATOR KATELYNN HAMILTON M.D. Performed By: #### K GARRYA, SULAIMAN SERUM, SPE #### [facility] , #### CMP #### [facility] [address] Vitamin B12 ser/plasOrdered By: Petra Holliday on 07-24-2024 Cobalamin (Vitamin B12) [Mass/Vol] Vitamin B12 ser/plas Low 180-914 [facility] Blood thiamine measurement ( moles/volume)Ordered By: Petra Holliday on 07-22-2024 Thiamine (Bld) [Moles/Vol] Blood thiamine measurement (moles/volume) 66.5-200.0 [facility] Comment on above: This test was develo ped and its performance characteristicsdetermined by [facility]. It has not been cleared orapproved by the Food and Drug Administration.Performed at: [address] [id number] Director: Heladio King MD, Phone: [phone] Folate [Mass/volume] in Seru m or PlasmaOrdered By: Petra Holliday on 07-22-2024 Folate [Mass/Vol] Folate [Mass/volume] in Serum or Plasma >5.9 [facility] Comment on above: Specimen hemolyzed, redraw requestedFolate reference range: >5.9 ng/mlThe WHO technical consultation on folate and vitamin [id number] has determined that folate concentrations lessthan 4 ng/ml are considered deficient. No Panel InformationOrdered By: Petra Holliday on 07-22-2024 Protein Electrophoresis M-Hernando Not observed g/dL Not Observed [facility] Protein Electrophoresis Note Comment . [facility] Comment on above: Protein electrophore sis scan will follow via computer,mail, or oncologist delivery.Performed at: [address] [id number] Director: Raghav Murphy PhD, Phone: [phone] Protein Electrophoresis, Ser umon 07-22-2024 Albumin [Mass/Vol] 3.3 g/dL Normal 2.9-4.4 [facility] Comment on above: Performed By: #### K APPA, SULAIMAN SERUM, SPE #### [facility] , #### CMP #### [facility] [address] [place] [address] Albumin/Globulin [Mass ratio] 0.7 {ratio} Normal 0.7-1.7 [facility] Comment on above: Performed By: #### K APPA, SULAIMAN SERUM, SPE #### [facility] , #### CMP #### [facility] [address] [place] [address] [place] Jfthr-1-Cxofvzpe 0.3 g/dL Normal 0.0-0.4 [facility] Comment on above: Performed By: #### K APPA, SULAIMAN SERUM, SPE #### [facility] , #### CMP #### [facility] [address] [place] [address] [place] Nlawz-9-Fqwmchhe 1.2 g/dL High 0.4-1.0 [facility] Comment on above: Performed By: #### K APPA, SULAIMAN SERUM, SPE #### [facility] , #### CMP #### [facility] [address] [place] [address] [place] Beta Globulin 1.2 g/dL Normal 0.7-1.3 [facility] Comment on above: Performed By: #### K APPA, SULAIMAN SERUM, SPE #### [facility] , #### CMP #### [facility] [address] [place] [address] [place] Gamma Globulin 1.8 g/dL Normal 0.4-1.8 [facility] Comment on above: Performed By: #### K APPA, SULAIMAN SERUM, SPE #### [facility] , #### CMP #### [facility] [address] [place] [address] [place] Globulin (S) [Mass/Vol] 4.5 g/dL High 2.2-3.9 [facility] Comment on above: Performed By: #### K APPA, SULAIMAN SERUM, SPE #### [facility] , #### CMP #### [address] M-Hernando Not Observed Normal Not Observed [facility] Comment on above: Performed By: #### K APPA, SULAIMAN SERUM, SPE #### [facility] , #### CMP #### [address] Protein [Mass/Vol] 7.8 g/dL Normal 6.0-8.5 [facility] Comment on above: Performed By: #### K APPA, SULAIMAN SERUM, SPE #### [facility] , #### CMP #### [facility] [address] [place] [address] SPE-Note Comment Normal . [facility] Comment on above: Result Comment: Prot ein electrophoresis scan will follow via computer, mail, or oncologist delivery. Performed at: [facility] [id number] [place] [employer]: Raghav Murphy PhD, Phone: [phone] PERFORMED BY: [place] [address] PATHOLOGIST HIDE AND SKIN FLESHING MACHINE OPERATOR KATELYNN HAMILTON M.D. Performed By: #### K APPA, SULAIMAN SERUM, SPE #### [facility] , #### CMP #### [address] Protein [Mass/volume] in Uri neOrdered By: Petra Holliday on 07-22-2024 Protein (U) [Mass/Vol] Protein [Mass/vol ume] in Urine High 0-9 [facility] Serum globulin measurement ( mass/volume)Ordered By: Petra Holliday on 07-22-2024 Globulin (S) [Mass/Vol] Serum globulin measurement (mass/volume) High 2.2-3.9 [facility] Serum or plasma albumin demian urement (mass/volume)Ordered By: Petra Holliday on 07-22-2024 Albumin [Mass/Vol] Albumin [Mass/volume ] in Serum or Plasma 2.9-4.4 [facility] Serum or plasma albumin/glob ulin mass ratioOrdered By: Petra Holliday on 07-22-2024 Albumin/Globulin [Mass ratio] Serum or plasma albumin/globulin mass ratio 0.7-1.7 [facility] Serum or plasma alpha 1 glob ulin measurement by electrophoresis (mass/volume)Ordered By: Petra Holliday on 07-22-2024 Alpha 1 globulin Elph [Mass/Vol] Serum or plasma alpha 1 globulin measurement by electrophoresis (mass/volume) 0.0-0.4 [facility] Serum or plasma alpha 2 glob ulin measurement by electrophoresis (mass/volume)Ordered By: Petra Holliday on 07-22-2024 Alpha 2 globulin Elph [Mass/Vol] Serum or plasma alpha 2 globulin measurement by electrophoresis (mass/volume) High 0.4-1.0 [facility] Serum or plasma beta globuli n measurement by electrophoresis (mass/volume)Ordered By: Petra Holliday on 07-22-2024 Beta globulin Elph [Mass/Vol] Serum or plasma beta globulin measurement by electrophoresis (mass/volume) 0.7-1.3 [facility] Serum or plasma gamma globul in measurement by electrophoresis (mass/volume)Ordered By: Petra Holliday on 07-22-2024 Gamma globulin Elph [Mass/Vol] Serum or plasma gamma globulin measurement by electrophoresis (mass/volume) 0.4-1.8 [facility] Serum total protein measurem entOrdered By: Petra Holliday on 07-22-2024 Protein [Mass/Vol] Protein [Mass/volume ] in Serum or Plasma 6.0-8.5 [facility] Total Protein, Urineon 07-22 Protein (U) [Mass/Vol] 37 mg/dL High 0-9 [facility] Comment on above: Result Comment: PERF ORMED BY: [place] [address] PATHOLOGIST HIDE AND SKIN FLESHING MACHINE OPERATOR KATELYNN HAMILTON M.D. Performed By: #### K APPA, SULAIMAN SERUM, SPE #### [facility] , #### CMP #### [address] Vit. B12/Folate Profileon Folate Normal >5.9 [facility] Comment on above: Result Comment: Spec imen hemolyzed, redraw requested Folate reference range: >5.9 ng/ml The WHO technical consultation on folate and vitamin b12 deficiencies has determined that folate concentrations less than 4 ng/ml are considered deficient. PERFORMED BY: [place] [address] PATHOLOGIST HIDE AND SKIN FLESHING MACHINE OPERATOR KATELYNN HAMILTON M.D. Performed By: #### K APPA, SULAIMAN SERUM, SPE #### [facility] , #### CMP #### [address] Vitamin B12 Normal 180-914 [facility] Comment on above: Result Comment: Spec imen hemolyzed, redraw requested Performed By: #### K APPA, SULAIMAN SERUM, SPE #### [facility] , #### CMP #### [address] Vitamin B1 (Thiamine) Bloodo n 07-22-2024 Vitamin B1 (Thiamine) Blood 135.7 Normal 66.5-200.0 [facility] Comment on above: Result Comment: This test was developed and its performance characteristics determined by [facility]. It has not been cleared or approved by the Food and Drug Administration. Performed at: [address] [id number] [place] [employer]: Heladio King MD, Phone: [phone] PERFORMED BY: [place] [id number] PATHOLOGIST HIDE AND SKIN FLESHING MACHINE OPERATOR KATELYNN HAMILTON M.D. Performed By: #### K APPA, SULAIMAN SERUM, SPE #### [facility] , #### CMP #### [address] Vitamin B12 ser/plasOrdered By: Petra Holliday on 07-22-2024 Cobalamin (Vitamin B12) [Mass/Vol] Vitamin B12 ser/plas 180-914 [facility] Comment on above: Specimen hemolyzed, redraw requested Creatinine [Mass/volume] in UrineOrdered By: Lety Flynn on 03-03-2024 Creatinine (U) [Mass/Vol] 110.00 mg/dL [facility] Comment on above: No reference range e stablished MicroAlb Creat Ratio,Uon Creatinine, Urine (Random) 110.00 mg/dL Normal [facility] Comment on above: Result Comment: No r eference range established Performed By: #### K APPA, SULAIMAN SERUM, SPE #### [facility] , #### CMP #### [address] Microalbumin/Creatinine Ratio 14.5 mg/g Normal 0.0-30.0 [facility] Comment on above: Result Comment: 30-3 00 mg/g indicates an increased risk for diabetic nephropathy. Greater than 300 mg/g is consistent with clinical nephropathy. (Am. J. Kidney Disease 1994, 25:107) PERFORMED BY: [place] [address] PATHOLOGIST HIDE AND SKIN FLESHING MACHINE OPERATOR NORIS VALDES M.D. Performed By: #### K APPA, SULAIMAN SERUM, SPE #### [facility] , #### CMP #### [place] [id number] [facility] Microalbumin [Mass/volume] i n UrineOrdered By: Lety Flynn on 03-03-2024 Albumin DL <= 20 mg/L (U) [Mass/Vol] 1.6 mg/dL Normal 0.0-1.8 [facility] Comment on above: Performed By: #### K APPALTA ValentinE SERUM, SPE #### [facility] , #### CMP #### [facility] [address] Urine microalbumin/creatinin e mass ratioOrdered By: Lety Flynn on 03-03-2024 Albumin/Creatinine DL <= 20 mg/L (U) [Mass ratio] 14.5 mg/g 0.0-30.0 [facility] Comment on above: 30-300 mg/g indicate s an increased risk for diabetic nephropathy. Greater than 300 mg/g is consistent with clinical nephropathy. (Am. J. Kidney Disease 1995, 25:107) Alanine aminotransferase [En zymatic activity/volume] in Serum or PlasmaOrdered By: Lety Flynn on 02-27-2024 ALT [Catalytic activity/Vol] 12 U/L Normal 7-52 [facility] Comment on above: Performed By: #### F E PRO, CBC, TSH3, CMP, LIPID #### [facility] [address] [place] [address] [place] Albumin [Mass/volume] in Ser um or Plasma by Bromocresol green (BCG) dye binding methoOrdered By: Lety Flynn on 02-27-2024 Albumin BCG dye [Mass/Vol] 3.6 g/dL 3.5-5.7 [facility] Alkaline phosphatase [Enzyma tic activity/volume] in Serum or PlasmaOrdered By: Lety Flynn on 02-27-2024 ALP [Catalytic activity/Vol] 95 U/L Normal 34-104 [facility] Comment on above: Performed By: #### F E PRO, CBC, TSH3, CMP, LIPID #### [facility] [address] [place] [address] [place] Aspartate aminotransferase [ Enzymatic activity/volume] in Serum or PlasmaOrdered By: Lety Flynn on 02-27-2024 AST [Catalytic activity/Vol] 17 U/L Normal 13-39 [facility] Comment on above: Performed By: #### F E PRO, CBC, TSH3, CMP, LIPID #### [address] Automated basophil %Ordered By: Lety Flynn on 02-27-2024 Basophils/100 WBC (Bld) 0.6 % Normal . [facility] Comment on above: Performed By: #### F E PRO, CBC, TSH3, CMP, LIPID #### [address] Automated basophil countOrde red By: Lety Flynn on 02-27-2024 Basophils (Bld) [#/Vol] 0.1 10*3/uL Normal 0.0-0.2 [facility] Comment on above: Result Comment: PERF ORMED BY: [place] [address] PATHOLOGIST HIDE AND SKIN FLESHING MACHINE OPERATOR NORIS VALDES M.D. Performed By: #### F E PRO, CBC, TSH3, CMP, LIPID #### [address] Automated blood monocyte cou ntOrdered By: Lety Flynn on 02-27-2024 Monocytes (Bld) [#/Vol] 0.7 10*3/uL Normal 0.0-0.8 [facility] Comment on above: Performed By: #### F E PRO, CBC, TSH3, CMP, LIPID #### [address] Automated eosinophil %Ordere d By: Lety Flynn on 02-27-2024 Eosinophils/100 WBC (Bld) 3.9 % Normal . [facility] Comment on above: Performed By: #### F E PRO, CBC, TSH3, CMP, LIPID #### [address] Automated eosinophil countOr dered By: Lety Flynn on 02-27-2024 Eosinophils (Bld) [#/Vol] 0.3 10*3/uL Normal 0.0-0.45 [facility] Comment on above: Performed By: #### F E PRO, CBC, TSH3, CMP, LIPID #### [facility] [address] Automated monocyte %Ordered By: Lety Flynn on 02-27-2024 Monocytes/100 WBC (Bld) 9.0 % Normal . [facility] Comment on above: Performed By: #### F E PRO, CBC, TSH3, CMP, LIPID #### [facility] [address] Automated neutrophil %Ordere d By: Lety Flynn on 02-27-2024 Neutrophils/100 WBC (Bld) 67.9 % Normal . [facility] Comment on above: Performed By: #### F E PRO, CBC, TSH3, CMP, LIPID #### [address] Bilirubin.total [Mass/volume ] in Serum or PlasmaOrdered By: Lety Flynn on 02-27-2024 Bilirubin [Mass/Vol] 0.3 mg/dL Normal 0.3-1.0 [facility] Comment on above: Performed By: #### F E PRO, CBC, TSH3, CMP, LIPID #### [place] [address] [place] Calcium [Mass/volume] in Ser um or PlasmaOrdered By: Lety Flynn on 02-27-2024 Calcium [Mass/Vol] 9.2 mg/dL Normal 8.6-10.3 [facility] Comment on above: Performed By: #### F E PRO, CBC, TSH3, CMP, LIPID #### [place] [address] [place] Carbon dioxide, total [Moles /volume] in Serum or PlasmaOrdered By: Lety Flynn on 02-27-2024 CO2 [Moles/Vol] 28.4 mmol/L Normal 21.0-31.0 [facility] Comment on above: Performed By: #### F E PRO, CBC, TSH3, CMP, LIPID #### [place] [address] [place] Chloride [Moles/volume] in S asiya or PlasmaOrdered By: Lety Flynn on 02-27-2024 Chloride [Moles/Vol] 105 mmol/L Normal 98-107 [facility] Comment on above: Performed By: #### F E PRO, CBC, TSH3, CMP, LIPID #### [facility] [address] Cholesterol [Mass/volume] in Serum or PlasmaOrdered By: Lety Flynn on 02-27-2024 Cholesterol [Mass/Vol] 138 mg/dL Low 140-200 [facility] Comment on above: Chol less than 200 m g/dl low riskChol 201-239 mg/dl borderline riskChol 240 mg/dl and greater high risk Result Comment: Chol less than 200 mg/dl low risk Chol 201-239 mg/dl borderline risk Chol 240 mg/dl and greater high risk Performed By: #### F E PRO, CBC, TSH3, CMP, LIPID #### [facility] [address] Cholesterol in LDL Calc [Mas s/Vol]Ordered By: Lety Flynn on 02-27-2024 Cholesterol in LDL [Mass/Vol] 70 mg/dL 0-100 [facility] Comment on above: LDL ATP III CLASSIFI CATIONLDL less than 100 mg/dL OptimalLDL 100-129 mg/dL Near or above optimalLDL 130-159 mg/dL Borderline highLDL 160-189 mg/dL HighLDL greater than 189 mg/dL Very high Cholesterol in VLDL Calc [Ma ss/Vol]Ordered By: Lety Flynn on 02-27-2024 Cholesterol in VLDL [Mass/Vol] 12 mg/dL [facility] Complete Blood Count Auto Di ffon 02-27-2024 Mean Corpuscular HGB Conc 32.9 g/dL Normal 32.0-35.0 [facility] Comment on above: Performed By: #### F E PRO, CBC, TSH3, CMP, LIPID #### [facility] [address] NRBC% 0.1 /100{WBC} Normal 0-0.5 [facility] Comment on above: Performed By: #### F E PRO, CBC, TSH3, CMP, LIPID #### [facility] [address] Comprehensive Metabolic Pane norma 02-27-2024 Albumin [Mass/Vol] 3.6 g/dL Normal 3.5-5.7 [facility] Comment on above: Performed By: #### F E PRO, CBC, TSH3, CMP, LIPID #### [address] GFR/1.73 sq M.predicted MDRD (S/P/Bld) [Vol rate/Area] mL/min/{1.73_m2} Normal [facility] Comment on above: Performed By: #### F E PRO, CBC, TSH3, CMP, LIPID #### [address] Creatinine [Mass/volume] in Serum or PlasmaOrdered By: Lety Flynn on 02-27-2024 Creatinine [Mass/Vol] 0.68 mg/dL Normal 0.60-1.20 [facility] Comment on above: Performed By: #### F E PRO, CBC, TSH3, CMP, LIPID #### [address] Erythrocyte distribution wid th [Ratio] by Automated countOrdered By: Lety Flynn on 02-27-2024 Erythrocyte distribution width (RBC) [Ratio] 14.4 % Normal 11.9-15.3 [facility] Comment on above: Performed By: #### F E PRO, CBC, TSH3, CMP, LIPID #### [address] Erythrocytes [#/volume] in B lood by Automated countOrdered By: Lety Flynn on 02-27-2024 RBC (Bld) [#/Vol] 4.54 10*6/uL Normal 3.60-5.00 [facility] Comment on above: Performed By: #### F E PRO, CBC, TSH3, CMP, LIPID #### [address] FE PROon 02-27-2024 % Iron Saturation 22.6 % Normal 20-50 [facility] Comment on above: Performed By: #### F E PRO, CBC, TSH3, CMP, LIPID #### [facility] [address] Total Iron Binding Capacity 288 ug/dL Normal 255-450 [facility] Comment on above: Performed By: #### F E PRO, CBC, TSH3, CMP, LIPID #### [facility] [address] [place] [address] [place] Ferritin [Mass/volume] in Se rum or PlasmaOrdered By: Lety Flynn on 02-27-2024 Ferritin [Mass/Vol] 178.2 ng/mL Normal 11.0-306.8 [facility] Comment on above: Performed By: #### F E PRO, CBC, TSH3, CMP, LIPID #### [facility] [address] [place] [id number] [place] Glucose [Mass/volume] in Ser um or PlasmaOrdered By: Lety Flynn on 02-27-2024 Glucose [Mass/Vol] 86 mg/dL Normal 70-100 [facility] Comment on above: ADA recommended refe rence rangeRandom Glucose Reference Range is dependent on time and content of last meal. Glucose of more than 200 mg/dL in a nonstressed, ambulatory subject supports the diagnosis of Diabetes Mellitus. Result Comment: [place] om Glucose Reference Range is dependent on time and content of last meal. Glucose of more than 200 mg/dL in a nonstressed, ambulatory subject supports the diagnosis of Diabetes Mellitus. ADA recommended reference range Performed By: #### F E PRO, CBC, TSH3, CMP, LIPID #### [facility] [address] [place] [id number] [place] HbA1c HPLC (Bld) [Mass fract ion]on 02-27-2024 HbA1c (Bld) [Mass fraction] 5.6 % [facility] Hematocrit [Volume Fraction] of Blood by Automated countOrdered By: Lety Flynn on 02-27-2024 Hematocrit (Bld) [Volume fraction] 39.4 % Normal 34.0-46.4 [facility] Comment on above: Performed By: #### F E PRO, CBC, TSH3, CMP, LIPID #### [facility] [address] Hemoglobin [Mass/volume] in BloodOrdered By: Lety Flynn on 02-27-2024 Hemoglobin (Bld) [Mass/Vol] 12.9 g/dL Normal 11.8-15.4 [facility] Comment on above: Performed By: #### F E PRO, CBC, TSH3, CMP, LIPID #### [facility] [address] Iron [Mass/volume] in Serum or PlasmaOrdered By: Lety Flynn on 02-27-2024 Iron [Mass/Vol] 65 ug/dL Normal 50-212 [facility] Comment on above: Performed By: #### F E PRO, CBC, TSH3, CMP, LIPID #### [address] Iron binding capacity [Mass/ volume] in Serum or PlasmaOrdered By: Lety Flynn on 02-27-2024 Iron binding capacity [Mass/Vol] 288 ug/dL 255-450 [facility] Iron saturation [Mass Fracti on] in Serum or PlasmaOrdered By: Lety Flynn on 02-27-2024 Iron saturation [Mass fraction] 22.6 % 20-50 [facility] Leukocytes [#/volume] correc tiffanie for nucleated erythrocytes in Blood by Automated counOrdered By: Lety Flynn on 02-27-2024 WBC corrected for nucl RBC Auto (Bld) [#/Vol] 7.8 10*3/uL 3.8-11.6 [facility] Leukocytes [#/volume] in Blo od by Automated countOrdered By: Lety Flynn on 02-27-2024 WBC (Bld) [#/Vol] 7.8 10*3/uL Normal 3.8-11.6 [facility] Comment on above: Performed By: #### F E PRO, CBC, TSH3, CMP, LIPID #### [facility] [address] [place] [address] Lipid Panelon 07-25-2024 LDL Cholesterol,Calculated 70 mg/dL Normal 0-100 [facility] Comment on above: Result Comment: LDL ATP III CLASSIFICATION LDL less than 100 mg/dL Optimal LDL 100-129 mg/dL Near or above optimal LDL 130-159 mg/dL Borderline high LDL 160-189 mg/dL High LDL greater than 189 mg/dL Very high Performed By: #### F E PRO, CBC, TSH3, CMP, LIPID #### [facility] [address] Triglyceride w/Reflex 63 mg/dL Normal 0-149 [facility] Comment on above: Result Comment: TRIG ATP III CLASSIFICATION TRIG less than 150 mg/dL Normal TRIG 150-199 mg/dL Borderline high TRIG 200-500 mg/dL High TRIG greater than 500 mg/dL Very high Standard traceable to the Center for Disease Conrtrol and Prevention (CDC) test method. Performed By: #### F E PRO, CBC, TSH3, CMP, LIPID #### [facility] [address] VLDL CHOLESTEROL 12 mg/dL Normal [facility] Comment on above: Performed By: #### F E PRO, CBC, TSH3, CMP, LIPID #### [facility] [address] [place] [address] [place] Lymphocytes [#/volume] in Bl ood by Automated countOrdered By: Lety Flynn on 02-27-2024 Lymphocytes (Bld) [#/Vol] 1.5 10*3/uL Normal 1.00-4.8 [facility] Comment on above: Performed By: #### F E PRO, CBC, TSH3, CMP, LIPID #### [facility] [address] [place] [address] [place] Lymphocytes/100 leukocytes i n Blood by Automated countOrdered By: Lety Flynn on 02-27-2024 Lymphocytes/100 WBC (Bld) 18.6 % Normal . [facility] Comment on above: Performed By: #### F E PRO, CBC, TSH3, CMP, LIPID #### [facility] [address] [place] [address] [place] MCH [Entitic mass] by Automa tiffanie countOrdered By: Lety Flynn on 02-27-2024 MCH (RBC) [Entitic mass] 28.5 pg Normal 24.7-34.3 [facility] Comment on above: Performed By: #### F E PRO, CBC, TSH3, CMP, LIPID #### [address] MCHC Auto (RBC) [Mass/Vol]Or dered By: Lety Flynn on 02-27-2024 MCHC (RBC) [Mass/Vol] 32.9 g/dL 32.0-35.0 [facility] MCV [Entitic volume] by Auto mated countOrdered By: Lety Flynn on 02-27-2024 MCV (RBC) [Entitic vol] 86.7 fL Normal 80-100 [facility] Comment on above: Performed By: #### F E PRO, CBC, TSH3, CMP, LIPID #### [facility] [address] [place] [address] Neutrophils [#/volume] in Bl ood by Automated countOrdered By: Lety Flynn on 02-27-2024 Neutrophils (Bld) [#/Vol] 5.3 10*3/uL Normal 1.8-7.7 [facility] Comment on above: Performed By: #### F E PRO, CBC, TSH3, CMP, LIPID #### [address] No Panel InformationOrdered By: Lety Flynn on 02-27-2024 Estimated GFR (CKD-EPI) > 60.0 mL/Min [facility] Creatinine Clearance (Chem N/A [facility] Nucleated erythrocytes [Pres ence] in Blood by Automated countOrdered By: Lety Flynn on 02-27-2024 Nucleated RBC Auto Ql (Bld) 0.1 /100{WBC} 0-0.5 [facility] Platelet mean volume [Entiti c volume] in Blood by Automated countOrdered By: Lety Flynn on 02-27-2024 Platelet mean volume (Bld) [Entitic vol] 7.6 fL Normal 6.3-10.7 [facility] Comment on above: Performed By: #### F E PRO, CBC, TSH3, CMP, LIPID #### [address] Platelets [#/volume] in Bloo d by Automated countOrdered By: Lety Flynn on 02-27-2024 Platelets (Bld) [#/Vol] 335 10*3/uL Normal 150-450 [facility] Comment on above: Performed By: #### F E PRO, CBC, TSH3, CMP, LIPID #### [address] Potassium [Moles/volume] in Serum or PlasmaOrdered By: Lety Flynn on 02-27-2024 Potassium [Moles/Vol] 4.2 mmol/L Normal 3.5-5.1 [facility] Comment on above: Performed By: #### F E PRO, CBC, TSH3, CMP, LIPID #### [address] Protein [Mass/volume] in Ser um or PlasmaOrdered By: Lety Flynn on 02-27-2024 Protein [Mass/Vol] 8.0 g/dL Normal 6.4-8.9 [facility] Comment on above: Performed By: #### F E PRO, CBC, TSH3, CMP, LIPID #### [address] Serum globulin measurement b y calculation (mass/volume)Ordered By: Lety Flynn on 02-27-2024 Globulin (S) [Mass/Vol] 4.4 g/dL Normal [facility] Comment on above: Performed By: #### F E PRO, CBC, TSH3, CMP, LIPID #### [address] Serum or plasma albumin/glob ulin mass ratioOrdered By: Lety Flynn on 02-27-2024 Albumin/Globulin [Mass ratio] 0.8 {ratio} [facility] Comment on above: Performed By: #### F E PRO, CBC, TSH3, CMP, LIPID #### [address] [place] [address] [place] Serum or plasma anion gap de terminationOrdered By: Lety Flynn on 02-27-2024 Anion gap [Moles/Vol] 8.8 mmol/L Normal 6.0-15.0 [facility] Comment on above: Performed By: #### F E PRO, CBC, TSH3, CMP, LIPID #### [facility] [address] [place] [address] Serum or plasma high density lipoprotein (HDL) cholesterol measurementOrdered By: Lety Flynn on 02-27-2024 Cholesterol in HDL [Mass/Vol] 55 mg/dL Normal 23-92 [facility] Comment on above: HDL CHOL ATP-III CLA SSIFICATION Cardiovascular RiskHDL > or equal to 60 mg/dL LOWHDL < 40 mg/dL HIGH Result Comment: HDL CHOL ATP-III CLASSIFICATION Cardiovascular Risk HDL > or equal to 60 mg/dL LOW HDL < 40 mg/dL HIGH Performed By: #### F E PRO, CBC, TSH3, CMP, LIPID #### [address] Serum or plasma total choles terol/high density lipoprotein (HDL) cholesterol mass ratOrdered By: Lety Flynn on 02-27-2024 Cholesterol.total/Kiki sterol in HDL [Mass ratio] 2.5 {ratio} Normal <5.0 [facility] Comment on above: Performed By: #### F E PRO, CBC, TSH3, CMP, LIPID #### [facility] [address] [place] [address] Sodium [Moles/volume] in Ser um or PlasmaOrdered By: Lety Flynn on 02-27-2024 Sodium [Moles/Vol] 138 mmol/L Normal 136-145 [facility] Comment on above: Performed By: #### F E PRO, CBC, TSH3, CMP, LIPID #### [address] Thyrotropin [Units/volume] i n Serum or PlasmaOrdered By: Lety Flynn on 02-27-2024 TSH Qn 3.83 m[IU]/L Normal 0.45-5.33 [facility] Comment on above: Result Comment: PERF ORMED BY: [place] [address] PATHOLOGIST HIDE AND SKIN FLESHING MACHINE OPERATOR NORIS VALDES M.D. Performed By: #### F E PRO, CBC, TSH3, CMP, LIPID #### [facility] [address] Transferrin [Mass/volume] in Serum or PlasmaOrdered By: Lety Flynn on 02-27-2024 Transferrin [Mass/Vol] 206 mg/dL Normal 203-362 [facility] Comment on above: Performed By: #### F E PRO, CBC, TSH3, CMP, LIPID #### [address] Triglyceride [Mass/volume] i n Serum or PlasmaOrdered By: Lety Flynn on 02-27-2024 Triglyceride [Mass/Vol] 63 mg/dL 0-149 [facility] Comment on above: TRIG ATP III CLASSIF ICATIONTRIG less than 150 mg/dL NormalTRIG 150-199 mg/dL Borderline highTRIG 200-500 mg/dL High TRIG greater than 500 mg/dL Very highStandard traceable to the Center for Disease Conrtrol and Prevention (CDC) test method. Urea nitrogen [Mass/volume] in Serum or PlasmaOrdered By: Lety Flynn on 02-27-2024 Urea nitrogen [Mass/Vol] 18 mg/dL Normal 7-25 [facility] Comment on above: Performed By: #### F E PRO, CBC, TSH3, CMP, LIPID #### [address] C Urineon 02-20-2024 Bacteria identified Cx [...] Locations R1: This test was performed at: [facility], [address] [place] [address], [id number] , [place], Normal [facility] Comment on above: Performed By: #### 2 [id number] #### [facility] [address] [place] [id number] Ambulatory Visit Summaryon 0 02-18-2024 Ambulatory Visit [...] choosing us for your care. Normal [facility] Urology Office/Clinic Noteon 02-18-2024 Urology Office/Clinic Note [...] with voice recognition artificial intelligence software, specifically [employer], [employer] and or [employer]. Substitutions may have occurred due to the [...] pt 1. Gross hematuria (R31.0: Gross hematuria) [facility] ER visit on 04/12/23. Has had increased confusion and SOB for about a month, dx w/ pulmonary embolism at [facility] and was prescribed Eliquis a month ago. Complications began after a fall that caused a head fracture and pelvic and R hip fractures. Went to see PCP Lety Flynn prior to presentation to [facility] ER on 04/12/23 for hematuria that was visible by pt the past 3 days, given cefdinir 300mg bid per PCP. UA 04/12/23 showed 3+ blood. UCx 04/12/23 - neg, tx'd empirically. Saw PCP again 05/01/23 for f/u to ER visit. UA at that time showed 20-49 RBCs and innumerable WBCs. UCx 05/01/23 - neg. [1] CT AP wo/w con done 05/15/23 at [facility] showed a 3mm nonobstructing R renal stone, abnormal bladder wall thickening and inflammatory changes suggestive of cystitis. [2] s/p cysto/UD 06/11/23 -tight urethra, dilated to 30 Finnish with sounds. Abnormal bladder, poor visibility due [...] Urnls Dip Stick Auto w/o Microscopy POC 63021 4. Kidney stone (N20.0: Calculus of kidney) CT AP wo/w con done 05/15/23 at [facility] showed a 3mm nonobstructing R renal stone, [...] BID, # 30 caplet(s), Refills(s) 0, Pharmacy: [facility]/pharmacy #[id number], 161, cm, 09/17/23 12:54:00 EST, Height/Length Dosing, 56, kg, 09/17/23 12:54:00 EST, Weight Dosing Follow-up No qualifying data available Patient Education (more content not included)... Normal [facility] Comment on above: Result Comment: Elec tronically Signed By: CARLOS A Ellison APRN, Cinthya Mendez\.br\Date and Time Signed: 02/18/24 12:05 EDT Consent for Procedure/Surger yon 09-17-2023 Consent for Procedure/Surgery [id number] FF Normal [facility] Consent for Treatmenton 09-05 Consent for Treatment [id number]#1.00TIF F [facility] IntraOperative Documentson 0 09-17-2023 IntraOperative Documents [id number] FF [facility] Main OR Intraoperative Recor don 09-17-2023 Main OR Intraoperative Record IntraOp Document Type FTURO Summary Primary Physician: Garcia TURNER MD Finalized Date/Time: 09/17/23 13:27:24 Pt. Name: KEVINJOSE/Sex: 1945 Female Med Rec #: [id number] Physician: Garcia TURNER MD Financial #: [id number] Pt. Type: O Room/Bed: / Admit/Disch: 09/17/23 [...] Raya Delgado Role Performed Surgeon - Primary Housing Specialist - Primary Scrub - Primary Time In [...] 2 - Clean-Contaminated Last Modified By: DIXON Garica RN, Ruthann 09/17/23 13:22:36 General Case Data [...] DIXON Garcia RN, Ruthann 09/17/23 13:27 Normal [facility] Main OR Preoperative Recordo n 09-17-2023 Main OR Preoperative Record Holding Area Document Type FTURO Summary Primary Physician: Garcia TURNER MD Finalized Date/Time: 09/17/23 13:12:13 Pt. Name: JOSE KIM/Sex: 1945 Female Med Rec #: [id number] Physician: Garcia TURNER MD Financial #: [id number] Pt. Type: O Room/Bed: / Admit/Disch: 09/17/23 [...] right arm doesn't work Skin Integrity Intact, [place], Warm, & Dry Vitals - EU Blood Pressure 133/85 Pulse 62 bpm Respirations 18 br/min SPO2 100 % RN Reviewed Yes Last Modified By: DIXON Garcia RN, Ruthann 09/17/23 13:12:11 Finalized By: DIXON Garcia RN, Ruthann Document Signatures Signed By: John GALLARDO Anushka D 09/17/23 13:00 DIXON Garcia RN, Ruthann 09/17/23 13:12 Normal [facility] Operative Reporton Operative Report Patient: EVAN [...] Follow-up will be in 3 months.. Normal [facility] Comment on above: Result Comment: Elec [...] Locations R1: This test was performed at: [facility], [address] [place] [address], [id number] , , [facility] Comment on above: Performed By: #### 2 [id number] ####[facility] [address] [place] [address] Consent for Procedure/Surger yon 06-11-2023 Consent for Procedure/Surgery [id number] F [facility] Consent for Treatmenton Consent for Treatment [id number]#[id number] F [facility] IntraOperative Documentson 1 08-11-2022 IntraOperative Documents [id number] F [facility] Main OR Intraoperative Recor don 06-11-2023 Main OR Intraoperative Record IntraOp Document Type FTURO Summary Primary Physician: Garcia TURNER MD Finalized Date/Time: 06/11/23 15:26:08 Pt. Name: JOSE KIM/Sex: 1945 Female Med Rec #: [id number] Physician: Garcia TURNER MD Financial #: [id number] Pt. Type: O Room/Bed: / Admit/Disch: 06/11/23 14:03:29 - Institution: Case Times FTURO Entry 1 Patient Times In Room 06/11/23 15:04:00 Out Room 06/11/23 15:21:00 Procedure Times Start 06/11/23 15:09:00 Stop 06/11/23 15:15:00 Anesthesia Times Last Modified By: Raya Zhou RN 06/11/23 15:21:35 Case Attendance FTURO Entry 1 Entry 2 Entry 3 Case Attendee YUE GILL, Garcia Martinez SEPTIC CLEANER, Raya Aguayo RN Role Performed Surgeon - Primary Scrub - Primary Housing Specialist - Primary Time In 06/11/23 15:04:00 06/11/23 15:04:00 06/11/23 15:04:00 Time Out 06/11/23 15:21:00 06/11/23 15:21:00 06/11/23 15:21:00 Procedure CYSTOSCOPY LOCAL WITH CYSTOSCOPY LOCAL WITH CYSTOSCOPY LOCAL WITH URETHRAL DILATION(.) URETHRAL DILATION(.) URETHRAL DILATION(.) Comments Last Modified By: Raya Zhou RN, RN, Ryaa Green RN 06/11/23 15:21:36 06/11/23 15:21:36 06/11/23 [...] RN 06/11/23 15:15:37 Case Comments Finalized By: Raay Zhou RN Document Signatures Signed By: Raya Zhou RN 06/11/23 15:26 Normal [facility] Main OR Preoperative Recordo n 06-11-2023 Main OR Preoperative Record Holding Area Document Type FTURO Summary Primary Physician: Garcia TURNER MD Finalized Date/Time: 06/11/23 14:46:50 Pt. Name: JOSE KIM/Sex: 1945 Female Med Rec #: [id number] Physician: Garcia TURNER MD Financial #: [id number] Pt. Type: O Room/Bed: / Admit/Disch: 06/11/23 [...] non-operatable, and non healing Skin Integrity Intact, [place], Warm, & Dry Vitals - EU Blood Pressure 121/76 Pulse 116 bpm Respirations 24 br/min SPO2 94 % RN Reviewed Yes Last Modified By: Raya Zhou RN 06/11/23 14:46:48 General Comments: Temp 36.5 Finalized By: Raya Zhou RN Document Signatures Signed By: Ramona Priest LPN 06/11/23 14:40 Raya Zhou RN 06/11/23 14:46 Normal [facility] Operative Reporton 3 Operative Report Patient: [...] urine. The Urethra was dilated to: 30 Finnish w/ sounds. Devices Implanted: None. Removal: Cystoscope is removed, The patient tolerated it well. Postoperative Information Discharge: Patient is discharged home with antibiotic coverage, Follow up arranged. She will take Macrobid for couple months and we will bring her back and repeat a cystoscopy.. Normal [facility] Comment on above: Result Comment: Elec [...] Locations R1: [facility] at: [facility] [address] [place] [address], [facility]- , , [facility] Comment on above: Performed By: #### 2 [id number] ####[id number] [place] [address] Physician Referralon 023 Physician Referral [phone] [id number] F [facility] Ambulatory Visit Summaryon 1 Ambulatory [...] GILL, Garcia Swift Where: [facility] Emergency Department Urology Office/Clinic Noteon 05-20-2023 Urology Office/Clinic Note Chief Complaint gross hematuria HPI Staff 78 yo female new pt, never seen in our office before, here for f/u to [facility] ER visit on 04/12/23. Has had increased confusion and SOB for about a month, dx w/ pulmonary embolism at [facility] and was prescribed Eliquis a month ago. Complications began after a fall that caused a head fracture and pelvic and R hip fractures. Went to see PCP Lety Flynn prior to presentation to [facility] ER on 04/12/23 for hematuria that was visible by pt the past 3 days, given cefdinir 300mg bid per PCP. UA 04/12/23 showed 3+ blood. UCx 04/12/23 - neg, tx'd empirically. CT AP wo con done 04/12/23 at [facility] showed gross distention of bladder with wall thickening and inflammatory changes suggestive of cystitis, associated R hydronephrosis and hydroureter. Saw PCP again 05/01/23 for f/u to ER visit. UA at that time showed 20-49 RBCs and innumerable WBCs. UCx 05/01/23 - [address] CT AP wo/w con done 05/15/23 at [facility] showed a 3mm nonobstructing R renal stone, [...] Assessment/Plan 1. Gross hematuria (R31.0: Gross hematuria) [facility] ER visit on 04/12/23. Has had increased confusion and SOB for about a month, dx w/ pulmonary embolism at [facility] and was prescribed Eliquis a month ago. Complications began after a fall that caused a head fracture and pelvic and R hip fractures. Went to see PCP Lety Flynn prior to presentation to [facility] ER on 04/12/23 for hematuria that was [...] when sh (more content not included)... Normal [facility] Comment on above: Result Comment: Elec tronically Signed By: Garcia TURNER MD\.br\Date and Time Signed: 05/20/23 14:29 EDT\.br\Electronically Co-Signed By: Moon Howell\.br\Date and Time Co-Signed: 05/20/23 14:28 EDT Basophils Auto (Bld) [#/Vol] Ordered By: Lety Flynn on 05-15-2023 Basophils (Bld) [#/Vol] 0.1 10*3/uL 0.0-0.2 [facility] Basophils/100 WBC Auto (Bld) Ordered By: Lety Flynn on 05-15-2023 Basophils/100 WBC (Bld) 0.6 % . [facility] Eosinophils Auto (Bld) [#/Vo l]Ordered By: Lety Flynn on 05-15-2023 Eosinophils (Bld) [#/Vol] 0.1 10*3/uL 0.0-0.45 [facility] Eosinophils/100 WBC Auto (Bl d)Ordered By: Lety Flynn on 05-15-2023 Eosinophils/100 WBC (Bld) 0.8 % . [facility] Erythrocyte distribution wid th Auto (RBC) [Ratio]Ordered By: Lety Flynn on 05-15-2023 Erythrocyte distribution width (RBC) [Ratio] 17.4 % 11.9-15.3 [facility] Hematocrit Auto (Bld) [Volum e fraction]Ordered By: Lety Flynn on 05-15-2023 Hematocrit (Bld) [Volume fraction] 32.0 % 34.0-46.4 [facility] Hemoglobin [Mass/volume] in BloodOrdered By: Lety Flynn on 05-15-2023 Hemoglobin (Bld) [Mass/Vol] 10.4 g/dL 11.8-15.4 [facility] Leukocytes [#/volume] correc tiffanie for nucleated erythrocytes in Blood by Automated counOrdered By: Lety Flynn on 05-15-2023 WBC corrected for nucl RBC Auto (Bld) [#/Vol] 8.2 10*3/uL 3.8-11.6 [facility] Lymphocytes Auto (Bld) [#/Vo l]Ordered By: Lety Flynn on 05-15-2023 Lymphocytes (Bld) [#/Vol] 1.1 10*3/uL 1.00-4.8 [facility] Lymphocytes/100 WBC Auto (Bl d)Ordered By: Lety Flynn on 05-15-2023 Lymphocytes/100 WBC (Bld) 13.3 % . [facility] MCH Auto (RBC) [Entitic mass ]Ordered By: Lety Flynn on 05-15-2023 MCH (RBC) [Entitic mass] 27.1 pg 24.7-34.3 [facility] MCHC Auto (RBC) [Mass/Vol]Or dered By: Lety Flynn on 05-15-2023 MCHC (RBC) [Mass/Vol] 32.6 g/dL 32.0-35.0 [facility] MCV Auto (RBC) [Entitic vol] Ordered By: Lety Flynn on 05-15-2023 MCV (RBC) [Entitic vol] 83.1 fL 80-100 [facility] Monocytes Auto (Bld) [#/Vol] Ordered By: Lety Flynn on 05-15-2023 Monocytes (Bld) [#/Vol] 0.8 10*3/uL 0.0-0.8 [facility] Monocytes/100 WBC Auto (Bld) Ordered By: Lety Flynn on 05-15-2023 Monocytes/100 WBC (Bld) 9.2 % . [facility] Neutrophils Auto (Bld) [#/Vo l]Ordered By: Lety Flynn on 05-15-2023 Neutrophils (Bld) [#/Vol] 6.3 10*3/uL 1.8-7.7 [facility] Neutrophils/100 WBC Auto (Bl d)Ordered By: Lety Flynn on 05-15-2023 Neutrophils/100 WBC (Bld) 76.1 % . [facility] Nucleated erythrocytes [Pres ence] in Blood by Automated countOrdered By: Lety Flynn on 05-15-2023 Nucleated RBC Auto Ql (Bld) 0.1 /100{WBC} 0-0.5 [facility] Platelet mean volume Auto (B ld) [Entitic vol]Ordered By: Lety Flynn on 05-15-2023 Platelet mean volume (Bld) [Entitic vol] 6.9 fL 6.3-10.7 [facility] Platelets Auto (Bld) [#/Vol] Ordered By: Lety Flynn on 05-15-2023 Platelets (Bld) [#/Vol] 577 10*3/uL 150-450 [facility] RBC Auto (Bld) [#/Vol]Ordere d By: Lety Flynn on 05-15-2023 RBC (Bld) [#/Vol] 3.85 10*6/uL 3.60-5.00 [facility] WBC Auto (Bld) [#/Vol]Ordere d By: Lety Flynn on 05-15-2023 WBC (Bld) [#/Vol] 8.2 10*3/uL 3.8-11.6 [facility] Alanine aminotransferase [En zymatic activity/volume] in Serum or PlasmaOrdered By: Lety Flynn on 05-01-2023 ALT [Catalytic activity/Vol] 12 U/L 7-52 [facility] Albumin [Mass/volume] in Ser um or Plasma by Bromocresol green (BCG) dye binding methoOrdered By: Lety Flynn on 05-01-2023 Albumin BCG dye [Mass/Vol] 2.9 g/dL 3.5-5.7 [facility] Alkaline phosphatase [Enzyma tic activity/volume] in Serum or PlasmaOrdered By: Lety Flynn on 05-01-2023 ALP [Catalytic activity/Vol] 74 U/L 34-104 [facility] Aspartate aminotransferase [ Enzymatic activity/volume] in Serum or PlasmaOrdered By: Lety Flynn on 05-01-2023 AST [Catalytic activity/Vol] 19 U/L 13-39 [facility] Automated erythrocytes count in urine sediment (number/area)Ordered By: Lety Flynn on 05-01-2023 RBC Auto (Urine sed) [#/Area] 20-49 [HPF] 0-4 [facility] Automated leukocytes count i n urine sediment (number/area)Ordered By: Lety Flynn on 05-01-2023 WBC Auto (Urine sed) [#/Area] Innumerable [HPF] 0-4 [facility] Basophils Auto (Bld) [#/Vol] Ordered By: Lety Flynn on 05-01-2023 Basophils (Bld) [#/Vol] 0.1 10*3/uL 0.0-0.2 [facility] Basophils/100 WBC Auto (Bld) Ordered By: Lety Flynn on 05-01-2023 Basophils/100 WBC (Bld) 0.7 % . [facility] Bilirubin Test strip Ql (U)O rdered By: Lety Flynn on 05-01-2023 Bilirubin Ql (U) Negative Negative [facility] Bilirubin.total [Mass/volume ] in Serum or PlasmaOrdered By: Lety Flynn on 05-01-2023 Bilirubin [Mass/Vol] 0.4 mg/dL 0.3-1.0 [facility] Calcium [Mass/volume] in Ser um or PlasmaOrdered By: Lety Flynn on 05-01-2023 Calcium [Mass/Vol] 9.0 mg/dL 8.6-10.3 [facility] Carbon dioxide, total [Moles /volume] in Serum or PlasmaOrdered By: Lety Flynn on 05-01-2023 CO2 [Moles/Vol] 27.8 mmol/L 21.0-31.0 [facility] Chloride [Moles/volume] in S asiya or PlasmaOrdered By: Lety Flynn on 05-01-2023 Chloride [Moles/Vol] 104 mmol/L 98-107 [facility] Color Auto (U)Ordered By: Virgilio Flynn on 05-01-2023 Color (U) Yellow Yellow [facility] Complete Blood Count Auto Di ffon 05-01-2023 Basophils (Bld) [#/Vol] 0.978686171 10*3/uL Normal 0.0-0.2 10*3/uL [facility] [employer] Other Basophils/100 WBC (Bld) 0.700 % . % [place] [employer] Other Eosinophils (Bld) [#/Vol] 0.293772040 10*3/uL Normal 0.0-0.45 10*3/uL [employer] Other Eosinophils/100 WBC (Bld) 0.700 % . % [employer] Other Erythrocyte distribution width (RBC) [Ratio] 17.200 % High 11.9-15.3 % [employer] Other Hematocrit (Bld) [Volume fraction] 29.400 % Low 34.0-46.4 % [employer] Other Hemoglobin (Bld) [Mass/Vol] 9.537020 g/dL Low 11.8-15.4 g/dL [employer] Other Lymphocytes (Bld) [#/Vol] 0.587643157 10*3/uL Low 1.00-4.8 10*3/uL [employer] Other Lymphocytes/100 WBC (Bld) 10.300 % . % [employer] Other MCH (RBC) [Entitic mass] 27.1000 pg Normal 24.7-34.3 pg [employer] Other MCV (RBC) [Entitic vol] 84.5000 fL Normal 80-100 fL [place] [employer] Other Monocytes (Bld) [#/Vol] 0.421208456 10*3/uL High 0.0-0.8 10*3/uL [employer] Other Monocytes/100 WBC (Bld) 11.000 % . % [place] [employer] Other Neutrophils (Bld) [#/Vol] 6.980460936 10*3/uL Normal 1.8-7.7 10*3/uL [employer] Other Neutrophils/100 WBC (Bld) 77.300 % . % [employer] Other Platelet mean volume (Bld) [Entitic vol] 7.2000 fL Normal 6.3-10.7 fL [employer] Other WBC (Bld) [#/Vol] 8.316623099 10*3/uL Normal 3.8 -11.6 10*3/uL [employer] Other Complete Blood Count Auto Diff 8.6 10*3/uL Normal 3.8-11.6 10*3/uL [employer] Other Complete Blood Count Auto Diff 32.1 g/dL Normal 32.0-35.0 g/dL [employer] Other Complete Blood Count Auto Diff 0.0 /100{WBC} Normal 0-0.5 /100{WBC} [employer] Other Comprehensive Metabolic Pane nomra 05-01-2023 Albumin [Mass/Vol] 2.504619 g/dL Low 3.5-5.7 g/dL [employer] Other Bilirubin [Mass/Vol] 0.6557041 mg/dL Normal 0.3- 1.0 mg/dL [employer] Other Calcium [Mass/Vol] 9.3140919 mg/dL Normal 8.6-10 .3 mg/dL [employer] Other CO2 [Moles/Vol] 27.58250389 mmol/L Normal 21.0-3 1.0 mmol/L [employer] Other Creatinine [Mass/Vol] 0.52335701 mg/dL Normal 0. 60-1.20 mg/dL [employer] Other GFR/1.73 sq M.predicted MDRD (S/P/Bld) [Vol rate/Area] mL/min/{1.73_m2} [employer] Other Potassium [Moles/Vol] 4.31531092 mmol/L Normal 3 .5-5.1 mmol/L [employer] Other Protein [Mass/Vol] 7.239683 g/dL Normal 6.4-8.9 g/dL [employer] Other Comprehensive Metabolic Panel 4.4 g/dL [employer] Other Creatinine [Mass/volume] in Serum or PlasmaOrdered By: Lety Flynn on 05-01-2023 Creatinine [Mass/Vol] 0.64 mg/dL 0.60-1.20 [facility] Dipstick & Microscopicon Dipstick & Microscopic No [facility] [place] [employer] Other ED Note-Physicianon 05-01-20 ED Note-Physician [id number]:1 27 Normal [facility] Eosinophils Auto (Bld) [#/Vo l]Ordered By: Lety Flynn on 05-01-2023 Eosinophils (Bld) [#/Vol] 0.1 10*3/uL 0.0-0.45 [facility] Eosinophils/100 WBC Auto (Bl d)Ordered By: Lety Flynn on 05-01-2023 Eosinophils/100 WBC (Bld) 0.7 % . [facility] Erythrocyte distribution wid th Auto (RBC) [Ratio]Ordered By: Lety Flynn on 05-01-2023 Erythrocyte distribution width (RBC) [Ratio] 17.2 % 11.9-15.3 [facility] Erythrocytes [#/volume] in B lood by Automated countOrdered By: Lety Flynn on 05-01-2023 RBC (Bld) [#/Vol] 3.47 10*6/uL 3.60-5.00 [facility] Globulin Calc (S) [Mass/Vol] Ordered By: Lety Flynn on 05-01-2023 Globulin (S) [Mass/Vol] 4.4 g/dL [facility] Glucose [Mass/volume] in Ser um or PlasmaOrdered By: Lety Flynn on 05-01-2023 Glucose [Mass/Vol] 106 mg/dL 70-100 [facility] Comment on above: ADA recommended refe rence rangeRandom Glucose Reference Range is dependent on time and content of last meal. Glucose of more than 200 mg/dL in a nonstressed, ambulatory subject supports the diagnosis of Diabetes Mellitus. Hematocrit Auto (Bld) [Volum e fraction]Ordered By: Lety Flynn on 05-01-2023 Hematocrit (Bld) [Volume fraction] 29.4 % 34.0-46.4 [facility] Hemoglobin [Mass/volume] in BloodOrdered By: Lety Flynn on 05-01-2023 Hemoglobin (Bld) [Mass/Vol] 9.4 g/dL 11.8-15.4 [facility] Ketones Auto test strip (U) [Mass/Vol]Ordered By: Lety Flynn on 05-01-2023 Ketones (U) [Mass/Vol] Negative Negative [facility] Laboratory - UrinalysisOrder ed By: Lety Flynn on 05-01-2023 Hyaline casts LM Ql (Urine sed) 0-8 [LPF] 0-8 [facility] Leukocytes [#/volume] correc tiffanie for nucleated erythrocytes in Blood by Automated counOrdered By: Lety Flynn on 05-01-2023 WBC corrected for nucl RBC Auto (Bld) [#/Vol] 8.6 10*3/uL 3.8-11.6 [facility] Lymphocytes Auto (Bld) [#/Vo l]Ordered By: Lety Flynn on 05-01-2023 Lymphocytes (Bld) [#/Vol] 0.9 10*3/uL 1.00-4.8 [facility] Lymphocytes/100 WBC Auto (Bl d)Ordered By: Lety Flynn on 05-01-2023 Lymphocytes/100 WBC (Bld) 10.3 % . [facility] MCH Auto (RBC) [Entitic mass ]Ordered By: Lety Flynn on 05-01-2023 MCH (RBC) [Entitic mass] 27.1 pg 24.7-34.3 [facility] MCHC Auto (RBC) [Mass/Vol]Or dered By: Lety Flynn on 05-01-2023 MCHC (RBC) [Mass/Vol] 32.1 g/dL 32.0-35.0 [facility] MCV Auto (RBC) [Entitic vol] Ordered By: Lety Flynn on 05-01-2023 MCV (RBC) [Entitic vol] 84.5 fL 80-100 [facility] Monocytes Auto (Bld) [#/Vol] Ordered By: Lety Flynn on 05-01-2023 Monocytes (Bld) [#/Vol] 0.9 10*3/uL 0.0-0.8 [facility] Monocytes/100 WBC Auto (Bld) Ordered By: Lety Flynn on 05-01-2023 Monocytes/100 WBC (Bld) 11.0 % . [facility] Neutrophils Auto (Bld) [#/Vo l]Ordered By: Lety Flynn on 05-01-2023 Neutrophils (Bld) [#/Vol] 6.6 10*3/uL 1.8-7.7 [facility] Neutrophils/100 WBC Auto (Bl d)Ordered By: Lety Flynn on 05-01-2023 Neutrophils/100 WBC (Bld) 77.3 % . [facility] Nitrite Test strip Ql (U)Ord ered By: Lety Flynn on 05-01-2023 Nitrite Ql (U) Negative Negative [facility] No Panel InformationOrdered By: Lety Flynn on 05-01-2023 Estimated GFR (CKD-EPI) > 60.0 mL/Min [facility] Creatinine Clearance (Chem N/A [facility] Nucleated erythrocytes [Pres ence] in Blood by Automated countOrdered By: Lety Flynn on 05-01-2023 Nucleated RBC Auto Ql (Bld) 0.0 /100{WBC} 0-0.5 [facility] Platelet mean volume Auto (B ld) [Entitic vol]Ordered By: Lety Flynn on 05-01-2023 Platelet mean volume (Bld) [Entitic vol] 7.2 fL 6.3-10.7 [facility] Platelets [#/volume] in Bloo d by Automated countOrdered By: Lety Flynn on 05-01-2023 Platelets (Bld) [#/Vol] 589 10*3/uL 150-450 [facility] Potassium [Moles/volume] in Serum or PlasmaOrdered By: Lety Flynn on 05-01-2023 Potassium [Moles/Vol] 4.0 mmol/L 3.5-5.1 [facility] Protein Auto test strip (U) [Mass/Vol]Ordered By: Lety Flynn on 05-01-2023 Protein (U) [Mass/Vol] 30 mg/dL Negative [facility] Protein [Mass/volume] in Ser um or PlasmaOrdered By: Lety Flynn on 05-01-2023 Protein [Mass/Vol] 7.3 g/dL 6.4-8.9 [facility] Serum or plasma albumin/glob ulin mass ratioOrdered By: Lety Flynn on 05-01-2023 Albumin/Globulin [Mass ratio] 0.7 {ratio} [facility] Serum or plasma anion gap de terminationOrdered By: Ltey Flynn on 05-01-2023 Anion gap [Moles/Vol] 8.2 mmol/L 6.0-15.0 [facility] Sodium [Moles/volume] in Ser um or PlasmaOrdered By: Lety Flynn on 05-01-2023 Sodium [Moles/Vol] 136 mmol/L 136-145 [facility] Specific gravity Auto test s trip (U) [Rel density]Ordered By: Lety Flynn on 05-01-2023 Specific gravity (U) [Rel density] 1.017 1.001-1.03 0 [facility] Squamous epithelial cells de tection in urine sediment by light microscopyOrdered By: Lety Flynn on 05-01-2023 Epithelial cells.squamous LM Ql (Urine sed) 5-9 [HPF] 0-2 [facility] Urea nitrogen [Mass/volume] in Serum or PlasmaOrdered By: Lety Flynn on 05-01-2023 Urea nitrogen [Mass/Vol] 18 mg/dL 7-25 [facility] Urine Cultureon 05-01-2023 Bacteria identified Cx Nom (U) [employer] Other Urine bacteria detection by automated methodOrdered By: Lety Flynn on 05-01-2023 Bacteria Auto Ql (U) 1+ None Seen [facility] Urine clarity by refractomet ry automatedOrdered By: Lety Flynn on 05-01-2023 Clarity Refractometry automated (U) Turbid Clear [facility] Urine culture routineOrdered By: Lety Flynn on 05-01-2023 Bacteria identified Cx Nom (U) 2 Days [facility] Bacteria identified Cx Nom (U) 2 Days [facility] Urine glucose measurement by automated test strip (mass/volume)Ordered By: Lety Flynn on 05-01-2023 Glucose Auto test strip (U) [Mass/Vol] Normal mg/dL Normal [facility] Urine hemoglobin detection b y automated test stripOrdered By: Lety Flynn on 05-01-2023 Hemoglobin Auto test strip Ql (U) 2+ Negative [facility] Urine leukocyte esterase det ection by automated test stripOrdered By: Lety Flynn on 05-01-2023 Leukocyte esterase Auto test strip Ql (U) 4+ Negative [facility] Urobilinogen Auto test strip (U) [Mass/Vol]Ordered By: Lety Flynn on 05-01-2023 Urobilinogen (U) [Mass/Vol] Normal mg/dL Normal [facility] WBC Auto (Bld) [#/Vol]Ordere d By: Lety Flynn on 05-01-2023 WBC (Bld) [#/Vol] 8.6 10*3/uL 3.8-11.6 [facility] pH Auto test strip (U)Ordere d By: Lety Flynn on 05-01-2023 pH (U) 7.0 [pH] 5.0-9.0 [facility] Activated partial thrombopla stin time (aPTT) in platelet poor plasma by coagulation aOrdered By: Lety Flynn on 04-16-2023 aPTT Coag (PPP) [Time] 35.4 s 25.1-36.5 [facility] Comment on above: A hematocrit value g reater than 55% may lead to inaccurate results in coagulation testing. Patients having hematocrit values >55% require a special collection tube for coagulation studies. Please contact the laboratory at [phone] for redraw instructions. Alanine aminotransferase [En zymatic activity/volume] in Serum or PlasmaOrdered By: Lety Flynn on 04-16-2023 ALT [Catalytic activity/Vol] 16 U/L 7-52 [facility] Albumin [Mass/volume] in Ser um or Plasma by Bromocresol green (BCG) dye binding methoOrdered By: Lety Flynn on 04-16-2023 Albumin BCG dye [Mass/Vol] 2.9 g/dL 3.5-5.7 [facility] Alkaline phosphatase [Enzyma tic activity/volume] in Serum or PlasmaOrdered By: Lety Flynn on 04-16-2023 ALP [Catalytic activity/Vol] 108 U/L 34-104 [facility] Aspartate aminotransferase [ Enzymatic activity/volume] in Serum or PlasmaOrdered By: Lety Flynn on 04-16-2023 AST [Catalytic activity/Vol] 19 U/L 13-39 [facility] Basophils Auto (Bld) [#/Vol] Ordered By: Lety Flynn on 04-16-2023 Basophils (Bld) [#/Vol] 0.1 10*3/uL 0.0-0.2 [facility] Basophils/100 WBC Auto (Bld) Ordered By: Lety Flynn on 04-16-2023 Basophils/100 WBC (Bld) 0.8 % . [facility] Bilirubin.total [Mass/volume ] in Serum or PlasmaOrdered By: Lety Flynn on 04-16-2023 Bilirubin [Mass/Vol] 0.4 mg/dL 0.3-1.0 [facility] Calcium [Mass/volume] in Ser um or PlasmaOrdered By: Lety Flynn on 04-16-2023 Calcium [Mass/Vol] 9.1 mg/dL 8.6-10.3 [facility] Carbon dioxide, total [Moles /volume] in Serum or PlasmaOrdered By: Lety Flynn on 04-16-2023 CO2 [Moles/Vol] 27.8 mmol/L 21.0-31.0 [facility] Chloride [Moles/volume] in S asiya or PlasmaOrdered By: Lety Flynn on 04-16-2023 Chloride [Moles/Vol] 95 mmol/L 98-107 [facility] Creatinine [Mass/volume] in Serum or PlasmaOrdered By: Lety Flynn on 04-16-2023 Creatinine [Mass/Vol] 0.83 mg/dL 0.60-1.20 [facility] Eosinophils Auto (Bld) [#/Vo l]Ordered By: Lety Flynn on 04-16-2023 Eosinophils (Bld) [#/Vol] 0.0 10*3/uL 0.0-0.45 [facility] Eosinophils/100 WBC Auto (Bl d)Ordered By: Lety Flynn on 04-16-2023 Eosinophils/100 WBC (Bld) 0.1 % . [facility] Erythrocyte distribution wid th Auto (RBC) [Ratio]Ordered By: Lety Flynn on 04-16-2023 Erythrocyte distribution width (RBC) [Ratio] 16.5 % 11.9-15.3 [facility] Globulin Calc (S) [Mass/Vol] Ordered By: Lety Flynn on 04-16-2023 Globulin (S) [Mass/Vol] 4.4 g/dL [facility] Glucose [Mass/volume] in Ser um or PlasmaOrdered By: Lety Flynn on 04-16-2023 Glucose [Mass/Vol] 135 mg/dL 70-100 [facility] Comment on above: ADA recommended refe rence rangeRandom Glucose Reference Range is dependent on time and content of last meal. Glucose of more than 200 mg/dL in a nonstressed, ambulatory subject supports the diagnosis of Diabetes Mellitus. Hematocrit Auto (Bld) [Volum e fraction]Ordered By: Lety Flynn on 04-16-2023 Hematocrit (Bld) [Volume fraction] 31.3 % 34.0-46.4 [facility] Hemoglobin [Mass/volume] in BloodOrdered By: Lety Flynn on 04-16-2023 Hemoglobin (Bld) [Mass/Vol] 10.2 g/dL 11.8-15.4 [facility] INR in Platelet poor plasma by Coagulation assayOrdered By: Lety Flynn on 04-16-2023 INR Coag (PPP) [Relative time] 2.2 {INR} [facility] Comment on above: INR Therapeutic Rang e [...] RBC Auto (Bld) [#/Vol] 10.6 10*3/uL 3.8-11.6 [facility] Lymphocytes Auto (Bld) [#/Vo l]Ordered By: Lety Flynn on 04-16-2023 Lymphocytes (Bld) [#/Vol] 1.0 10*3/uL 1.00-4.8 [facility] Lymphocytes/100 WBC Auto (Bl d)Ordered By: Lety Flynn on 04-16-2023 Lymphocytes/100 WBC (Bld) 9.1 % . [facility] MCH Auto (RBC) [Entitic mass ]Ordered By: Lety Flynn on 04-16-2023 MCH (RBC) [Entitic mass] 27.9 pg 24.7-34.3 [facility] MCHC Auto (RBC) [Mass/Vol]Or dered By: Lety Flynn on 04-16-2023 MCHC (RBC) [Mass/Vol] 32.5 g/dL 32.0-35.0 [facility] MCV Auto (RBC) [Entitic vol] Ordered By: Lety Flynn on 04-16-2023 MCV (RBC) [Entitic vol] 85.9 fL 80-100 [facility] Monocytes Auto (Bld) [#/Vol] Ordered By: Lety Flynn on 04-16-2023 Monocytes (Bld) [#/Vol] 0.8 10*3/uL 0.0-0.8 [facility] Monocytes/100 WBC Auto (Bld) Ordered By: Lety Flynn on 04-16-2023 Monocytes/100 WBC (Bld) 8.0 % . [facility] Neutrophils Auto (Bld) [#/Vo l]Ordered By: Lety Flynn on 04-16-2023 Neutrophils (Bld) [#/Vol] 8.7 10*3/uL 1.8-7.7 [facility] Neutrophils/100 WBC Auto (Bl d)Ordered By: Lety Flynn on 04-16-2023 Neutrophils/100 WBC (Bld) 82.0 % . [facility] No Panel InformationOrdered By: Lety Flynn on 04-16-2023 Estimated GFR (CKD-EPI) > 60.0 mL/Min [facility] Creatinine Clearance (Chem N/A [facility] Nucleated erythrocytes [Pres ence] in Blood by Automated countOrdered By: Lety Flynn on 04-16-2023 Nucleated RBC Auto Ql (Bld) 0.0 /100{WBC} 0-0.5 [facility] Platelet mean volume Auto (B ld) [Entitic vol]Ordered By: Lety Flynn on 04-16-2023 Platelet mean volume (Bld) [Entitic vol] 7.1 fL 6.3-10.7 [facility] Platelets Auto (Bld) [#/Vol] Ordered By: Lety Flynn on 04-16-2023 Platelets (Bld) [#/Vol] 554 10*3/uL 150-450 [facility] Potassium [Moles/volume] in Serum or PlasmaOrdered By: Lety Flynn on 04-16-2023 Potassium [Moles/Vol] 3.7 mmol/L 3.5-5.1 [facility] Protein [Mass/volume] in Ser um or PlasmaOrdered By: Lety Flynn on 04-16-2023 Protein [Mass/Vol] 7.3 g/dL 6.4-8.9 [facility] Prothrombin time (PT)Ordered By: Lety Flynn on 04-16-2023 PT Coag (PPP) [Time] 26.5 s 9.0-12.9 [facility] Comment on above: A hematocrit value g reater than 55% may lead to inaccurate results in coagulation testing. Patients having hematocrit values >55% require a special collection tube for coagulation studies. Please contact the laboratory at [phone] for redraw instructions. RBC Auto (Bld) [#/Vol]Ordere d By: Lety Flynn on 04-16-2023 RBC (Bld) [#/Vol] 3.65 10*6/uL 3.60-5.00 [facility] Serum or plasma albumin/glob ulin mass ratioOrdered By: Lety Flynn on 04-16-2023 Albumin/Globulin [Mass ratio] 0.7 {ratio} [facility] Serum or plasma anion gap de terminationOrdered By: Lety Flynn on 04-16-2023 Anion gap [Moles/Vol] 11.9 mmol/L 6.0-15.0 [facility] Sodium [Moles/volume] in Ser um or PlasmaOrdered By: Lety Flynn on 04-16-2023 Sodium [Moles/Vol] 131 mmol/L 136-145 [facility] Urea nitrogen [Mass/volume] in Serum or PlasmaOrdered By: Lety Flynn on 04-16-2023 Urea nitrogen [Mass/Vol] 17 mg/dL 7-25 [facility] WBC Auto (Bld) [#/Vol]Ordere d By: Lety Flynn on 04-16-2023 WBC (Bld) [#/Vol] 10.6 10*3/uL 3.8-11.6 [facility] Activated partial thrombopla stin time (aPTT) in platelet poor plasma by coagulation aOrdered By: Pamela Valenzuela on 04-12-2023 aPTT Coag (PPP) [Time] 33.5 s 25.1-36.5 [facility] Comment on above: A hematocrit value g reater than 55% may lead to inaccurate results in coagulation testing. Patients having hematocrit values >55% require a special collection tube for coagulation studies. Please contact the laboratory at [phone] for redraw instructions. Alanine aminotransferase [En zymatic activity/volume] in Serum or PlasmaOrdered By: Pamela Valenzuela on 04-12-2023 ALT [Catalytic activity/Vol] 20 U/L 7-52 [facility] Albumin [Mass/volume] in Ser um or Plasma by Bromocresol green (BCG) dye binding methoOrdered By: Pamela Valenzuela on 04-12-2023 Albumin BCG dye [Mass/Vol] 3.1 g/dL 3.5-5.7 [facility] Alkaline phosphatase [Enzyma tic activity/volume] in Serum or PlasmaOrdered By: Pamela Valenzuela on 04-12-2023 ALP [Catalytic activity/Vol] 116 U/L 34-104 [facility] Aspartate aminotransferase [ Enzymatic activity/volume] in Serum or PlasmaOrdered By: Pamela Valenzuela on 04-12-2023 AST [Catalytic activity/Vol] 20 U/L 13-39 [facility] Automated erythrocytes count in urine sediment (number/area)Ordered By: Pamela Valenzuela on 04-12-2023 RBC Auto (Urine sed) [#/Area] Innumerable [HPF] 0-4 [facility] Automated leukocytes count i n urine sediment (number/area)Ordered By: Pamela Valenzuela on 04-12-2023 WBC Auto (Urine sed) [#/Area] Innumerable [HPF] 0-4 [facility] Basophils Auto (Bld) [#/Vol] Ordered By: Pamela Valenzuela on 04-12-2023 Basophils (Bld) [#/Vol] 0.1 10*3/uL 0.0-0.2 [facility] Basophils/100 WBC Auto (Bld) Ordered By: Pamela Valenzuela on 04-12-2023 Basophils/100 WBC (Bld) 0.6 % . [facility] Bilirubin Test strip Ql (U)O rdered By: Pamela Valenzuela on 04-12-2023 Bilirubin Ql (U) Negative Negative [facility] Bilirubin.total [Mass/volume ] in Serum or PlasmaOrdered By: Pamela Valenzuela on 04-12-2023 Bilirubin [Mass/Vol] 0.5 mg/dL 0.3-1.0 [facility] Calcium [Mass/volume] in Ser um or PlasmaOrdered By: Pamela Valenzuela on 04-12-2023 Calcium [Mass/Vol] 9.3 mg/dL 8.6-10.3 [facility] Carbon dioxide, total [Moles /volume] in Serum or PlasmaOrdered By: Pamela Valenzuela on 04-12-2023 CO2 [Moles/Vol] 28.1 mmol/L 21.0-31.0 [facility] Chloride [Moles/volume] in S asiya or PlasmaOrdered By: Pamela Valenzuela on 04-12-2023 Chloride [Moles/Vol] 97 mmol/L 98-107 [facility] Color Auto (U)Ordered By: Alana Valenzuela on 04-12-2023 Color (U) Red Yellow [facility] Creatinine [Mass/volume] in Serum or PlasmaOrdered By: Pamela Valenzuela on 04-12-2023 Creatinine [Mass/Vol] 0.85 mg/dL 0.60-1.20 [facility] Eosinophils Auto (Bld) [#/Vo l]Ordered By: Pamela Valenzuela on 04-12-2023 Eosinophils (Bld) [#/Vol] 0.0 10*3/uL 0.0-0.45 [facility] Eosinophils/100 WBC Auto (Bl d)Ordered By: Pamela Valenzuela on 04-12-2023 Eosinophils/100 WBC (Bld) 0.5 % . [facility] Erythrocyte distribution wid th Auto (RBC) [Ratio]Ordered By: Pamela Valenzuela on 04-12-2023 Erythrocyte distribution width (RBC) [Ratio] 15.9 % 11.9-15.3 [facility] Globulin Calc (S) [Mass/Vol] Ordered By: Pamela Valenzuela on 04-12-2023 Globulin (S) [Mass/Vol] 5.3 g/dL [facility] Glucose [Mass/volume] in Ser um or PlasmaOrdered By: Pamela Valenzuela on 04-12-2023 Glucose [Mass/Vol] 101 mg/dL 70-100 [facility] Comment on above: ADA recommended refe rence rangeRandom Glucose Reference Range is dependent on time and content of last meal. Glucose of more than 200 mg/dL in a nonstressed, ambulatory subject supports the diagnosis of Diabetes Mellitus. Hematocrit Auto (Bld) [Volum e fraction]Ordered By: Pamela Valenzuela on 04-12-2023 Hematocrit (Bld) [Volume fraction] 32.9 % 34.0-46.4 [facility] Hemoglobin [Mass/volume] in BloodOrdered By: Pamela Valenzuela on 04-12-2023 Hemoglobin (Bld) [Mass/Vol] 10.8 g/dL 11.8-15.4 [facility] INR in Platelet poor plasma by Coagulation assayOrdered By: Pamela Valenzuela on 04-12-2023 INR Coag (PPP) [Relative time] 1.8 {INR} [facility] Comment on above: INR Therapeutic Rang e [...] on 04-12-2023 Ketones (U) [Mass/Vol] Negative Negative [facility] Laboratory - UrinalysisOrder ed By: Pamela Valenzuela on 04-12-2023 Hyaline casts LM Ql (Urine sed) 0-8 [LPF] 0-8 [facility] Leukocytes [#/volume] correc tiffanie for nucleated erythrocytes in Blood by Automated counOrdered By: Pamela Valenzuela on 04-12-2023 WBC corrected for nucl RBC Auto (Bld) [#/Vol] 9.1 10*3/uL 3.8-11.6 [facility] Lymphocytes Auto (Bld) [#/Vo l]Ordered By: Pamela Valenzuela on 04-12-2023 Lymphocytes (Bld) [#/Vol] 1.4 10*3/uL 1.00-4.8 [facility] Lymphocytes/100 WBC Auto (Bl d)Ordered By: Pamela Valenzuela on 04-12-2023 Lymphocytes/100 WBC (Bld) 15.2 % . [facility] MCH Auto (RBC) [Entitic mass ]Ordered By: Pamela Valenzuela on 04-12-2023 MCH (RBC) [Entitic mass] 27.9 pg 24.7-34.3 [facility] MCHC Auto (RBC) [Mass/Vol]Or dered By: Pamela Valenzuela on 04-12-2023 MCHC (RBC) [Mass/Vol] 32.7 g/dL 32.0-35.0 [facility] MCV Auto (RBC) [Entitic vol] Ordered By: Pamela Valenzuela on 04-12-2023 MCV (RBC) [Entitic vol] 85.3 fL 80-100 [facility] Monocyte distribution width [Entitic volume] in Blood by AutomatedOrdered By: Pamela Valenzuela on 04-12-2023 Monocyte distribution width Auto (Bld) [Entitic vol] 20.52 % 0.00-20.00 [facility] Comment on above: For adults in ED, MD W > 20.0 may be associated with a higher risk of sepsis during the first 12 hrs of hospital admission Monocytes Auto (Bld) [#/Vol] Ordered By: Pamela Valenzuela on 04-12-2023 Monocytes (Bld) [#/Vol] 0.7 10*3/uL 0.0-0.8 [facility] Monocytes/100 WBC Auto (Bld) Ordered By: Pamela Valenzuela on 04-12-2023 Monocytes/100 WBC (Bld) 8.2 % . [facility] Natriuretic peptide B [Mass/ Vol]Ordered By: Pamela Valenzuela on 04-12-2023 Natriuretic peptide B (Bld) [Mass/Vol] 43.0 pg/mL 5-100 [facility] Neutrophils Auto (Bld) [#/Vo l]Ordered By: Pamela Valenzuela on 04-12-2023 Neutrophils (Bld) [#/Vol] 6.8 10*3/uL 1.8-7.7 [facility] Neutrophils/100 WBC Auto (Bl d)Ordered By: Pamela Valenzuela on 04-12-2023 Neutrophils/100 WBC (Bld) 75.5 % . [facility] Nitrite Test strip Ql (U)Ord ered By: Pamela Valenzuela on 04-12-2023 Nitrite Ql (U) Negative Negative [facility] No Panel InformationOrdered By: Pamela Valenzuela on 04-12-2023 Estimated GFR (CKD-EPI) > 60.0 mL/Min [facility] Creatinine Clearance (Chem 49.87 [facility] Nucleated erythrocytes [Pres ence] in Blood by Automated countOrdered By: Pamela Valenzuela on 04-12-2023 Nucleated RBC Auto Ql (Bld) 0.1 /100{WBC} 0-0.5 [facility] Platelet mean volume Auto (B ld) [Entitic vol]Ordered By: Pamela Valenzuela on 04-12-2023 Platelet mean volume (Bld) [Entitic vol] 6.6 fL 6.3-10.7 [facility] Platelets Auto (Bld) [#/Vol] Ordered By: Pamela Valenzuela on 04-12-2023 Platelets (Bld) [#/Vol] 488 10*3/uL 150-450 [facility] Potassium [Moles/volume] in Serum or PlasmaOrdered By: Pamela Valenzuela on 04-12-2023 Potassium [Moles/Vol] 3.6 mmol/L 3.5-5.1 [facility] Protein Auto test strip (U) [Mass/Vol]Ordered By: Pamela Valenzuela on 04-12-2023 Protein (U) [Mass/Vol] 30 mg/dL Negative [facility] Protein [Mass/volume] in Ser um or PlasmaOrdered By: Pamela Valenzuela on 04-12-2023 Protein [Mass/Vol] 8.4 g/dL 6.4-8.9 [facility] Prothrombin time (PT)Ordered By: Pamela Valenzuela on 04-12-2023 PT Coag (PPP) [Time] 21.2 s 9.0-12.9 [facility] Comment on above: A hematocrit value g reater than 55% may lead to inaccurate results in coagulation testing. Patients having hematocrit values >55% require a special collection tube for coagulation studies. Please contact the laboratory at [phone] for redraw instructions. RBC Auto (Bld) [#/Vol]Ordere d By: Pamela Valenzuela on 04-12-2023 RBC (Bld) [#/Vol] 3.86 10*6/uL 3.60-5.00 [facility] Serum or plasma albumin/glob ulin mass ratioOrdered By: Pamela Valenzuela on 04-12-2023 Albumin/Globulin [Mass ratio] 0.6 {ratio} [facility] Serum or plasma anion gap de terminationOrdered By: Pamela Valenzuela on 04-12-2023 Anion gap [Moles/Vol] 12.5 mmol/L 6.0-15.0 [facility] Sodium [Moles/volume] in Ser um or PlasmaOrdered By: Pamela Valenzuela on 04-12-2023 Sodium [Moles/Vol] 134 mmol/L 136-145 [facility] Specific gravity Auto test s trip (U) [Rel density]Ordered By: Pamela Valenzuela on 04-12-2023 Specific gravity (U) [Rel density] > 1.050 1.001-1.03 0 [facility] Squamous epithelial cells de tection in urine sediment by light microscopyOrdered By: Pamela Valenzuela on 04-12-2023 Epithelial cells.squamous LM Ql (Urine sed) 0-1 [HPF] 0-2 [facility] Troponin I.cardiac [Mass/vol ume] in Serum or Plasma by Detection limit <= 0.01 ng/Ordered By: Pamela Valenzuela on 04-12-2023 Troponin I.cardiac DL <= 0.01 ng/mL [Mass/Vol] 6.2 pg/mL 0.0-15.0 [facility] Urea nitrogen [Mass/volume] in Serum or PlasmaOrdered By: Pamela Valenzuela on 04-12-2023 Urea nitrogen [Mass/Vol] 20 mg/dL 7-25 [facility] Urine bacteria detection by automated methodOrdered By: Pamela Valenzuela 04-12-2023 Bacteria Auto Ql (U) 2+ None Seen [facility] Urine clarity by refractomet ry automatedOrdered By: Pamela Valenzuela on 04-12-2023 Clarity Refractometry automated (U) Turbid Clear [facility] Urine culture routineOrdered By: Pamela Valenzuela on 04-12-2023 Bacteria identified Cx Nom (U) 2 Days [facility] Urine glucose measurement by automated test strip (mass/volume)Ordered By: Pamela Valenzuela on 04-12-2023 Glucose Auto test strip (U) [Mass/Vol] Normal mg/dL Normal [facility] Urine hemoglobin detection b y automated test stripOrdered By: Pamela Valenzuela on 04-12-2023 Hemoglobin Auto test strip Ql (U) 3+ Negative [facility] Urine leukocyte esterase det ection by automated test stripOrdered By: Pamela Valenzuela on 04-12-2023 Leukocyte esterase Auto test strip Ql (U) 4+ Negative [facility] Urobilinogen Auto test strip (U) [Mass/Vol]Ordered By: Pamela Valenzuela on 04-12-2023 Urobilinogen (U) [Mass/Vol] Normal mg/dL Normal [facility] WBC Auto (Bld) [#/Vol]Ordere d By: Pamela Valenzuela on 04-12-2023 WBC (Bld) [#/Vol] 9.1 10*3/uL 3.8-11.6 [facility] Yeast detection in urine sed iment by light microscopyOrdered By: Pamela Valenzuela on 04-12-2023 Yeast LM Ql (Urine sed) None seen [HPF] None Se en [facility] pH Auto test strip (U)Ordere d By: Pamela Valenzuela on 04-12-2023 pH (U) 7.5 [pH] 5.0-9.0 [facility] A1C HEMOGLOBINon 01-03-2023 HbA1c (Bld) [Mass fraction] 5.6 % [employer] Other HbA1c (Bld) [Mass fraction]o n 01-03-2023 A1C HEMOGLOBIN [place] [employer] Other STR cardiac stress/lexiscano n 09-14-2022 STR cardiac stress/lexiscan [facility] [employer] Other STR cardiac stress/lexiscan [facility] Main [facility] [employer] Other STR cardiac stress/lexiscan [address] [facility] [employer] Other STR cardiac stress/[place] [address] [employer] Other STR cardiac stress/[employer]iscan Cardiac Stress Test [employer] Other STR cardiac stress/lexiscan Signed [employer] Other STR cardiac stress/lexiscan Patient: Jose Kim MR#: [id number] [place] [employer] Other STR cardiac stress/lexiscan 6 [employer] Other STR cardiac stress/lexiscan : 1945 Acct:[id number] [employer] Other STR cardiac stress/lexiscan Age/Sex: 77 / F ADM Date: 09/14/22 [employer] Other STR cardiac stress/lexiscan Loc: [place] Room: Type: [facility] [employer] Other STR cardiac stress/lexiscan Attending Dr: Lety Flynn [facility] [employer] Other STR cardiac stress/lexiscan Copies to: Elsy Dumas MD, [facility] [employer] Other STR cardiac stress/lexiscan [email or web address] Other [facility] cardiac stress/lexiscan Ordering Provider: Lety Flynn [facility] [employer] Other STR cardiac stress/lexiscan Date of Service: 09/14/22 [employer] Other STR cardiac stress/lexiscan STR/STR cardiac stress/lexiscan: Shortness of breath;Irregular heart [employer] Other STR cardiac stress/lexiscan rhythm [employer] Other STR cardiac stress/lexiscan ORDERED BY: Lety Flynn DNP [employer] Other STR cardiac stress/lexiscan INDICATION: A 77-year-old patient with dyspnea on exertion. [employer] Other STR cardiac stress/lexiscan Resting ECG revealed sinus rhythm, heart rate 62 beats per minute. Resting blood pressure 145/75 [employer] Other STR cardiac stress/lexiscan mmHg. [employer] Other STR cardiac stress/lexiscan Following intravenous administration of 400 mcg of Lexiscan over 10 seconds, no ischemic EKG changes [employer] Other STR cardiac stress/lexiscan were noted. No chest pain was reported by the patient and no significant cardiac arrhythmias were [employer] Other STR cardiac stress/lexiscan seen. [employer] Other STR cardiac stress/lexiscan CONCLUSION: [employer] Other STR cardiac stress/lexiscan 1. No Lexiscan-induced ischemic EKG changes, chest pain or cardiac arrhythmias. [employer] Other STR cardiac stress/lexiscan 2. Cardiolite studies to be reported separately by Nuclear Cardiology. [employer] Other STR cardiac stress/lexiscan Transcribed By: NTS 09/15/22 1728 [employer] Other STR cardiac stress/lexiscan Dictated By: Elsy Dumas MD, [facility] 09/14/22 1629 [employer] Other STR cardiac stress/lexiscan Signed By: [employer] Other STR cardiac stress/lexiscan 09/17/22 0853 [employer] Other [facility] Echocardiogram [employer] Other [facility] [employer] [facility] [facility]: [facility] [employer] Other [facility] Date of Service: 09/07/2210/25/844 [employer] Other [facility] ECH/ECH echo transthoracic: Shortness of breath [employer] Other [facility] Copies to: Elsy Dumas MD, [facility] [employer] Other [facility] Lety Flynn, [facility] [employer] Other [facility] BSA: 1.7 m2 BP: 1 38/74 mmHg [employer] Other [facility] HR: 89 No rt [employer] Other [facility] Reason For Study: Shortness of breath [employer] Other [facility] History: COPD,For jordana smoker [employer] Other [facility] Interpretation Summary [employer] Other [facility] The left ventricu lar size and thickness are normal. [employer] Other [facility] Ejection Fraction = 55-60%. [employer] Other [facility] There is no prior echocardiogram noted for this patient. [employer] Other [facility] flow and Doppler was performed. The study was technically good in quality. [employer] Other [facility] Left Ventricle: T he left ventricular size and thickness are normal. Ejection [employer] Other [facility] Fraction = 55-60%. [employer] Other [facility] Left Atrium: The left atrium appears normal in size. The atrial septum [employer] Other [facility] appears normal. [employer] Other [facility] Right Atrium: The right atrium appears normal in size. [employer] Other [facility] Right Ventricle: The right ventricular size, thickness and function are [employer] Other [facility] normal. No rt [employer] Other [facility] Aortic Valve: The aortic valve is normal in structure and function. [employer] Other [facility] Mitral Valve: The mitral valve is normal in structure and function. [employer] Other [facility] Tricuspid Valve: The tricuspid valve is normal. There is trace tricuspid [employer] Other [facility] regurgitation. [employer] Other [facility] Pulmonic Valve: T he pulmonic valve is not well seen, but is grossly normal. [employer] Other [facility] Arteries: The aor tic root is normal size. [employer] Other [facility] Pericardium/Pleur a: No pericardial effusion seen. There is no pleural [employer] Other [facility] effusion. No rt [employer] Other [facility] IVC/Hepatic Viens : The IVC is normal in size with an inspiratory collapse of [employer] Other [facility] greater then 50%, suggesting normal right atrial pressure. [employer] Other [facility] Miscellaneous: No thrombus, vegetation or mass is seen. [employer] Other [facility] Measurements with Normals [employer] Other [facility] IVSd: 0.71 cm (0. 7-1.1 cm)LVIDd: 5.0 cm (3.7-5.4 cm) [employer] Other [facility] LVPWd: 0.70 cm (0 .7-1.1 cm)LVIDs: 3.2 cm (2.3-3.6 cm) [employer] Other [facility] LA dimension: 3.8 cm(2.3-4.0 cm)Ao root diam: 2.8 cm(2.0-3.6 cm) [employer] Other [facility] Doppler with Normals [employer] Other [facility] RVSP(TR): 39.4 mm Hg (18-35mmHg) [employer] Other [facility] MV E max phu: 71. 1 cm/sec(0.8-1.3m/s) [employer] Other [facility] MV A max phu: 61. 3 cm/sec(0.0-0.0m/s) [employer] Other [facility] MV E/A: 1.2 (<1.5) [employer] Other [facility] MMode/2D Measurem ents Calculations [employer] Other [facility] RVDd: 2.3 cm FS: 36.6 % Ao root area: 6.1 cm2 [employer] Other [facility] RV S Phu: 10.8 cm /sec EDV(Teich): 118.1 ml [employer] Other [facility] ESV(Teich): 40.0 ml [employer] Other [facility] EF(Teich): 66.1 % [employer] Other [facility] Doppler Measureme nts Calculations [employer] Other [facility] MV dec time: 0.19 sec E/E' lat: MV dec slope: TV max PG: [employer] Other [facility] 5.1 379.3 cm/sec2 34.0 mmHg [employer] Other [facility] E/E' med: No [facility] [employer] Other [facility] 8.5 No [facility] [employer] Other [facility] __ No [facility] [employer] Other [facility] TR max phu: [place] [employer] Other [facility] 293.2 cm/sec [employer] Other [facility] TR max P.4 mmHg [employer] Other [facility] RAP systole: 5.0 mmHg [employer] Other [facility] [employer] Other [facility] Electronically si gned by: ELSY DUMAS MD, [facility] on 09/07/2022 12:37 PM [employer] Other [facility] Transcribed By: [facility] [employer] Other [facility] Performed At: 10/25 0856 [employer] Other [facility] Signed By: Elsy Dumas MD, FACC 09/07/22 1237 [employer] Other [facility] mammogram Breast - bilat eral Screeningon 09-07-2022 MM screening mammo BI w/CAD Mammography Report [employer] Other MM screening mammo BI w/CAD [facility]: [facility] [employer] Other MM screening mammo BI w/CAD Copies to: Lety Flynn DNP [employer] Other MM screening mammo BI w/CAD Date of Service: 09/07/22 [employer] Other MM screening mammo BI w/CAD MM/MM screening mammo BI w/CAD: Encounter for screening mammogram for [employer] Other MM screening mammo BI w/CAD malignant neoplasm of [employer] [facility] [employer] Other MM screening mammo BI w/CAD CLINICAL DATA: Screening for malignancy. [employer] Other MM screening mammo BI w/CAD BILATERAL SCREENING MAMMOGRAMS - FULL FIELD DIGITAL WITH TOMOSYNTHESIS AND CAD [employer] Other MM screening mammo BI w/CAD Tomosynthesis craniocaudal and mediolateral oblique views of both breasts were obtained using low- [employer] Other MM screening mammo BI w/CAD dose digital technique. Comparison is made to prior studies from 08/08/2021, 05/19/2019, 04/11/2018, [employer] Other MM screening mammo BI w/CAD and 04/01/2017. This examination was reviewed with the aid of CAD. [employer] Other MM screening mammo BI w/CAD There are scattered fibroglandular densities. Benign-appearing calcifications are present. There is [employer] Other MM screening mammo BI w/CAD a similar focal asymmetry on the right laterally. There are no dominant masses, typically malignant [employer] Other MM screening mammo BI w/CAD calcifications or architectural distortion. There has been no significant interval change. [employer] Other MM screening mammo BI w/CAD MM/MM screening mammo BI w/CAD [employer] Other MM screening mammo BI w/CAD IMPRESSION: [employer] Other MM screening mammo BI w/CAD NO MAMMOGRAPHIC EVIDENCE OF MALIGNANCY. [employer] Other MM screening mammo BI w/CAD ROUTINE FOLLOW-UP IS RECOMMENDED IN ONE YEAR. [employer] Other MM screening mammo BI w/CAD RESULT CODE: 2 [employer] Other MM screening mammo BI w/CAD Benign Findings(s) [employer] Other MM screening mammo BI w/CAD DENSITY CODE: 2 (approximately 25-50% glandular) [employer] Other MM screening mammo BI w/CAD FOLLOW UP: 1YR [employer] Other MM screening mammo BI w/CAD The false-negative rate of mammography is approximately 10-percent. [employer] Other MM screening mammo BI w/CAD Management of a palpable abnormality must be based on clinical grounds. [employer] Other MM screening mammo BI w/CAD Patient was entered into a reminder system with a target due date for the next mammogram. [employer] Other MM screening mammo BI w/CAD Impression dictated by: Joel Valiente M.D.09/07/2022 10:15 AM [employer] Other MM screening mammo BI w/CAD Dictation Location: [facility] [employer] Other MM screening mammo BI w/CAD Transcribed By: JOAO 09/07/22 1015 [employer] Other MM screening mammo BI w/CAD Dictated By: Joel Valiente II, MD 09/07/22 1010 [employer] Other MM screening mammo BI w/CAD Signed By: [employer] Other MM screening mammo BI w/CAD 09/07/22 1015 [employer] Other MM screening mammo BI w/CADo n 09-07-2022 MM screening mammo BI w/CAD [facility] [employer] Other MM screening mammo BI w/CAD [facility] [employer] Other MM screening mammo BI w/CAD [address] [place] [address] [employer] Other MM screening mammo BI w/CAD [place] [id number] [employer] Other MM screening mammo BI w/CAD Signed [facility] Other MM screening mammo BI w/CAD Patient: Jose Kim MR#: [id number] [facility] Other MM screening mammo BI w/CAD 6 [facility] Other MM screening mammo BI w/CAD : 1945 Acct:[id number] [facility] Other MM screening mammo BI w/CAD Age/Sex: 77 / F ADM Date: 09/07/22 [facility] Other MM screening mammo BI w/CAD Attending Dr: Lety Flynn DNP [facility] Other MM screening mammo BI w/CAD Ordering Provider: Lety Flynn DNP [facility] Other A1C HEMOGLOBINon 09-03-2022 HbA1c (Bld) [Mass fraction] 5.7 % [facility] Other HbA1c (Bld) [Mass fraction]o n 09-03-2022 A1C HEMOGLOBIN [facility] Other Albumin [Mass/volume] in Ser um or PlasmaOrdered By: Pete Erazo on 08-20-2022 Albumin [Mass/Vol] 3.5 g/dL 3.2-5.5 [facility] Albumin [Mass/Vol] 3.4 g/dL 2.9-4.4 [facility] Basophils Auto (Bld) [#/Vol] Ordered By: Pete Erazo on 08-20-2022 Basophils (Bld) [#/Vol] 0.0 10*3/uL 0.0-0.2 [facility] Basophils/100 WBC Auto (Bld) Ordered By: Pete Erazo on 08-20-2022 Basophils/100 WBC (Bld) 0.5 % . [facility] Creatinine and Glomerular fi ltration rate.predicted panel (S/P/Bld)Ordered By: Pete Erazo on 08-20-2022 Creatinine [Mass/Vol] 0.94 mg/dL 0.44-1.03 [facility] Eosinophils Auto (Bld) [#/Vo l]Ordered By: Pete Erazo on 08-20-2022 Eosinophils (Bld) [#/Vol] 0.0 10*3/uL 0.0-0.45 [facility] Eosinophils/100 WBC Auto (Bl d)Ordered By: Pete Erazo on 08-20-2022 Eosinophils/100 WBC (Bld) 0.3 % . [facility] Erythrocyte distribution wid th Auto (RBC) [Ratio]Ordered By: Pete Erazo on 08-20-2022 Erythrocyte distribution width (RBC) [Ratio] 14.4 % 11.9-15.3 [facility] Erythrocyte sedimentation ra te by Photometric methodOrdered By: Pete Erazo on 08-20-2022 ESR Photometric method (Bld) [Velocity] 58 mm/hr 0-29 [facility] Estimated glomerular filtrat ion rate (GFR) non- AmericanOrdered By: Pete Erazo on 08-20-2022 GFR/1.73 sq M.predicted among non-blacks MDRD (S/P/Bld) [Vol rate/Area] 58 mL/Min [facility] Globulin Calc (S) [Mass/Vol] Ordered By: Pete Erazo on 08-20-2022 Globulin (S) [Mass/Vol] 5.1 g/dL [facility] Hematocrit Auto (Bld) [Volum e fraction]Ordered By: Pete Erazo on 08-20-2022 Hematocrit (Bld) [Volume fraction] 39.8 % 34.0-46.4 [facility] Hemoglobin [Mass/volume] in BloodOrdered By: Pete Erazo on 08-20-2022 Hemoglobin (Bld) [Mass/Vol] 13.1 g/dL 11.8-15.4 [facility] IgA [Mass/volume] in Serum o r PlasmaOrdered By: Pete Erazo on 08-20-2022 IgA [Mass/Vol] 259 mg/dL 64-422 [facility] IgG [Mass/volume] in Serum o r PlasmaOrdered By: Pete Erazo on 08-20-2022 IgG [Mass/Vol] 2783 mg/dL 586-1602 [facility] IgM [Mass/volume] in Serum o r PlasmaOrdered By: Pete Erazo on 08-20-2022 IgM [Mass/Vol] 205 mg/dL 26-217 [facility] Comment on above: Performed at: [facility] [id number] [place], [place] [id number] Director: Raghav Murphy PhD, Phone: [phone] Immunoglobulin light chains. kappa.free [Mass/volume] in SerumOrdered By: Pete Erazo on 08-20-2022 Immunoglobulin light chains.kappa.free (S) [Mass/Vol] 89.6 mg/L 3.3-19.4 [facility] Immunoglobulin light chains. kappa.free/Immunoglobulin light chains.lambda.free [MassOrdered By: Pete Erazo on 08-20-2022 Immunoglobulin light chains.kappa.free/Immun oglobulin light chains.lambda.free (S) [Mass ratio] 2.08 0.26-1.65 [facility] Comment on above: Performed at: [id number] [place], [place] [id number] Director: Raghav Murphy PhD, Phone: [phone] Immunoglobulin light chains. lambda.free [Mass/volume] in Serum or PlasmaOrdered By: Pete Erazo on 08-20-2022 Immunoglobulin light chains.lambda.free [Mass/Vol] 43.1 mg/L 5.7-26.3 [facility] Leukocytes [#/volume] correc tiffanie for nucleated erythrocytes in Blood by Automated counOrdered By: Pete Erazo on 08-20-2022 WBC corrected for nucl RBC Auto (Bld) [#/Vol] 8.8 10*3/uL 3.8-11.6 [facility] Lymphocytes Auto (Bld) [#/Vo l]Ordered By: Pete Erazo on 08-20-2022 Lymphocytes (Bld) [#/Vol] 1.1 10*3/uL 1.00-4.8 [facility] Lymphocytes/100 WBC Auto (Bl d)Ordered By: Pete Erazo on 08-20-2022 Lymphocytes/100 WBC (Bld) 12.0 % . [facility] MCH Auto (RBC) [Entitic mass ]Ordered By: Pete Erazo on 08-20-2022 MCH (RBC) [Entitic mass] 29.2 pg 24.7-34.3 [facility] MCHC Auto (RBC) [Mass/Vol]Or dered By: Pete Erazo on 08-20-2022 MCHC (RBC) [Mass/Vol] 33.0 g/dL 32.0-35.0 [facility] MCV Auto (RBC) [Entitic vol] Ordered By: Pete Erazo on 08-20-2022 MCV (RBC) [Entitic vol] 88.5 fL 80-100 [facility] Monocytes Auto (Bld) [#/Vol] Ordered By: Pete Erazo on 08-20-2022 Monocytes (Bld) [#/Vol] 0.8 10*3/uL 0.0-0.8 [facility] Monocytes/100 WBC Auto (Bld) Ordered By: Pete Erazo on 08-20-2022 Monocytes/100 WBC (Bld) 9.1 % . [facility] Neutrophils Auto (Bld) [#/Vo l]Ordered By: Pete Erazo on 08-20-2022 Neutrophils (Bld) [#/Vol] 6.9 10*3/uL 1.8-7.7 [facility] Neutrophils/100 WBC Auto (Bl d)Ordered By: Pete Erazo on 08-20-2022 Neutrophils/100 WBC (Bld) 78.1 % . [facility] No Panel InformationOrdered By: Pete Erazo on 08-20-2022 Estimated GFR () > 60 mL/Min [facility] Comment on above: GFR estimated refere nce range: According to KDOQI guidelines, <60 ml/min/1.73m2 is sufficient to diagnose a patient with chronic kidney disease. Pharmacy Creatinine Clearance (Chem 45.10 [facility] Protein Electrophoresis M-Hernando Not observed g/dL Not Observed [facility] Protein Electrophoresis Note See comment . [facility] Comment on above: Protein electrophore sis scan will follow via computer,mail, or oncologist delivery.Performed at: [facility] Director: Raghav Murphy PhD, Phone: [phone] Serum Immunofixation See comment . [facility] Comment on above: No monoclonality det ected. Nucleated erythrocytes [Pres ence] in Blood by Automated countOrdered By: Pete Erazo on 08-20-2022 Nucleated RBC Auto Ql (Bld) 0.0 /100{WBC} 0-0.5 [facility] Platelet mean volume Auto (B ld) [Entitic vol]Ordered By: Pete Erazo on 08-20-2022 Platelet mean volume (Bld) [Entitic vol] 7.3 fL 6.3-10.7 [facility] Platelets Auto (Bld) [#/Vol] Ordered By: Pete Erazo on 08-20-2022 Platelets (Bld) [#/Vol] 277 10*3/uL 150-450 [facility] Protein [Mass/volume] in Ser um or PlasmaOrdered By: Pete Erazo on 08-20-2022 Protein [Mass/Vol] 8.6 g/dL 6.1-7.9 [facility] Protein [Mass/Vol] 8.2 g/dL 6.0-8.5 [facility] RBC Auto (Bld) [#/Vol]Ordere d By: Pete Erazo on 08-20-2022 RBC (Bld) [#/Vol] 4.50 10*6/uL 3.60-5.00 [facility] Serum globulin measurement ( mass/volume)Ordered By: Pete Erazo on 08-20-2022 Globulin (S) [Mass/Vol] 4.8 g/dL 2.2-3.9 [facility] Serum or plasma alanine rebolledo otransferase measurement without P-5'-P (enzymatic activiOrdered By: Pete Erazo on 08-20-2022 ALT No additional P-5'-P [Catalytic activity/Vol] 18 U/L 10-60 [facility] Serum or plasma albumin/glob ulin mass ratioOrdered By: Pete Erazo on 08-20-2022 Albumin/Globulin [Mass ratio] 0.7 {ratio} 0.7-1.7 [facility] Serum or plasma alkaline vani sphatase measurement (enzymatic activity/volume)Ordered By: Pete Erazo on 08-20-2022 ALP [Catalytic activity/Vol] 83 U/L 32-92 [facility] Serum or plasma alpha 1 glob ulin measurement by electrophoresis (mass/volume)Ordered By: Pete Erazo on 08-20-2022 Alpha 1 globulin Elph [Mass/Vol] 0.3 g/dL 0.0-0.4 [facility] Serum or plasma alpha 2 glob ulin measurement by electrophoresis (mass/volume)Ordered By: Pete Erazo on 08-20-2022 Alpha 2 globulin Elph [Mass/Vol] 1.0 g/dL 0.4-1.0 [facility] Serum or plasma anion gap de terminationOrdered By: Pete Erazo on 08-20-2022 Anion gap [Moles/Vol] 10.0 mmol/L 6.0-15.0 [facility] Serum or plasma aspartate am inotransferase measurement (enzymatic activity/volume)Ordered By: Pete Erazo on 08-20-2022 AST [Catalytic activity/Vol] 23 U/L 10-42 [facility] Serum or plasma beta globuli n measurement by electrophoresis (mass/volume)Ordered By: Pete Erazo on 08-20-2022 Beta globulin Elph [Mass/Vol] 1.1 g/dL 0.7-1.3 [facility] Serum or plasma calcium demian urement (mass/volume)Ordered By: Pete Erazo on 08-20-2022 Calcium [Mass/Vol] 9.5 mg/dL 8.2-10.2 [facility] Serum or plasma chloride carson surement (moles/volume)Ordered By: Pete Erazo on 08-20-2022 Chloride [Moles/Vol] 106 mmol/L 95-114 [facility] Serum or plasma gamma globul in measurement by electrophoresis (mass/volume)Ordered By: Pete Erazo on 08-20-2022 Gamma globulin Elph [Mass/Vol] 2.5 g/dL 0.4-1.8 [facility] Serum or plasma glucose demian urement (mass/volume)Ordered By: Pete Erazo on 08-20-2022 Glucose [Mass/Vol] 105 mg/dL 70-100 [facility] Comment on above: ADA recommended refe rence rangeRandom Glucose Reference Range is dependent on time and content of last meal. Glucose of more than 200 mg/dL in a nonstressed, ambulatory subject supports the diagnosis of Diabetes Mellitus. Serum or plasma potassium me asurement (moles/volume)Ordered By: Pete Erazo on 08-20-2022 Potassium [Moles/Vol] 4.2 mmol/L 3.5-5.1 [facility] Serum or plasma sodium measu rement (moles/volume)Ordered By: Pete Erazo on 08-20-2022 Sodium [Moles/Vol] 138 mmol/L 136-146 [facility] Serum or plasma total biliru bin measurement (mass/volume)Ordered By: Pete Erazo on 08-20-2022 Bilirubin [Mass/Vol] 0.6 mg/dL 0.3-1.2 [facility] Serum or plasma total carbon dioxide measurement (moles/volume)Ordered By: Pete Eraoz on 08-20-2022 CO2 [Moles/Vol] 26.2 mmol/L 22.0-30.0 [facility] Serum or plasma urea nitroge n measurement (mass/volume)Ordered By: Pete Erazo on 08-20-2022 Urea nitrogen [Mass/Vol] 13 mg/dL 9- [facility] WBC Auto (Bld) [#/Vol]Ordere d By: Pete Erazo on 08-20-2022 WBC (Bld) [#/Vol] 8.8 10*3/uL 3.8-11.6 [facility] Glucose Glucometer (BldC) [M ass/Vol]Ordered By: Lety Flynn on 05-16-2022 Glucose [Mass/Vol] 90 mg/dL [facility] Comment on above: Random Glucose Refer ence Range is dependent on time and content of last meal. Glucose of more than 200 mg/dL in a nonstressed, ambulatory subject supports the diagnosis of Diabetes Mellitus. Albumin [Mass/volume] in Ser um or PlasmaOrdered By: Lety Flynn on 05-10-2022 Albumin [Mass/Vol] 3.3 g/dL 2.9-4.4 [facility] Body fluid albumin measureme nt (mass/volume)Ordered By: Lety Flynn on 05-10-2022 Albumin (Body fld) [Mass/Vol] 3.6 g/dL 3.2-5.5 [facility] Creatinine and Glomerular fi ltration rate.predicted panel (S/P/Bld)Ordered By: Lety Flynn on 05-10-2022 Creatinine [Mass/Vol] 0.98 mg/dL 0.44-1.03 [facility] Estimated glomerular filtrat ion rate (GFR) non- AmericanOrdered By: Lety Flynn on 05-10-2022 GFR/1.73 sq M.predicted among non-blacks MDRD (S/P/Bld) [Vol rate/Area] 55 mL/Min [facility] Globulin Calc (S) [Mass/Vol] Ordered By: Lety Flynn on 05-10-2022 Globulin (S) [Mass/Vol] 4.7 g/dL [facility] IgA [Mass/volume] in Serum o r PlasmaOrdered By: Lety Flynn on 05-10-2022 IgA [Mass/Vol] 255 mg/dL 64-422 [facility] IgG [Mass/volume] in Serum o r PlasmaOrdered By: Lety Flynn on 05-10-2022 IgG [Mass/Vol] 2709 mg/dL 586-1602 [facility] IgM [Mass/volume] in Serum o r PlasmaOrdered By: Lety Flynn on 05-10-2022 IgM [Mass/Vol] 216 mg/dL 26-217 [facility] Comment on above: Performed at: [facility] [id number] [place] [id number] Director: Raghav Murphy PhD, Phone: [phone] Immunoglobulin light chains. kappa.free [Mass/volume] in SerumOrdered By: Lety Flynn on 05-10-2022 Immunoglobulin light chains.kappa.free (S) [Mass/Vol] 107.4 mg/L 3.3-19.4 [facility] Immunoglobulin light chains. kappa.free/Immunoglobulin light chains.lambda.free [MassOrdered By: Lety Flynn on 05-10-2022 Immunoglobulin light chains.kappa.free/Immun oglobulin light chains.lambda.free (S) [Mass ratio] 2.55 0.26-1.65 [facility] Comment on above: Performed at: [facility] [place] [id number] Director: Raghav Murphy PhD, Phone: [phone] Immunoglobulin light chains. lambda.free [Mass/volume] in Serum or PlasmaOrdered By: Lety Flynn on 05-10-2022 Immunoglobulin light chains.lambda.free [Mass/Vol] 42.2 mg/L 5.7-26.3 [facility] No Panel InformationOrdered By: Lety Flynn on 05-10-2022 Estimated GFR () > 60 mL/Min [facility] Comment on above: GFR estimated refere nce range: According to KDOQI guidelines, <60 ml/min/1.73m2 is sufficient to diagnose a patient with chronic kidney disease. Pharmacy Creatinine Clearance (Chem N/A [facility] Protein Electrophoresis M-Hernando Not observed g/dL Not Observed [facility] Protein Electrophoresis Note See comment . [facility] Comment on above: Protein electrophore sis scan will follow via computer,mail, or oncologist delivery.Performed at: [facility] [id number] [id number] Director: Raghav Murphy PhD, Phone: [phone] Protein [Mass/volume] in Ser um or PlasmaOrdered By: Lety Flynn on 05-10-2022 Protein [Mass/Vol] 8.3 g/dL 6.1-7.9 [facility] Protein [Mass/Vol] 8.4 g/dL 6.0-8.5 [facility] Serum globulin measurement ( mass/volume)Ordered By: Lety Flynn on 05-10-2022 Globulin (S) [Mass/Vol] 5.1 g/dL 2.2-3.9 [facility] Serum or plasma alanine rebolledo otransferase measurement without P-5'-P (enzymatic activiOrdered By: Lety Flynn on 05-10-2022 ALT No additional P-5'-P [Catalytic activity/Vol] 16 U/L 10-60 [facility] Serum or plasma albumin/glob ulin mass ratioOrdered By: Lety Flynn on 05-10-2022 Albumin/Globulin [Mass ratio] 0.8 {ratio} [facility] Albumin/Globulin [Mass ratio] 0.6 {ratio} 0.7-1.7 [facility] Serum or plasma alkaline vani sphatase measurement (enzymatic activity/volume)Ordered By: Lety Flynn on 05-10-2022 ALP [Catalytic activity/Vol] 80 U/L 32-92 [facility] Serum or plasma alpha 1 glob ulin measurement by electrophoresis (mass/volume)Ordered By: Lety Flynn on 05-10-2022 Alpha 1 globulin Elph [Mass/Vol] 0.4 g/dL 0.0-0.4 [facility] Serum or plasma alpha 2 glob ulin measurement by electrophoresis (mass/volume)Ordered By: Lety Flynn on 05-10-2022 Alpha 2 globulin Elph [Mass/Vol] 1.0 g/dL 0.4-1.0 [facility] Serum or plasma anion gap de terminationOrdered By: Lety Flynn on 05-10-2022 Anion gap [Moles/Vol] 14.0 mmol/L 6.0-15.0 [facility] Serum or plasma aspartate am inotransferase measurement (enzymatic activity/volume)Ordered By: Lety Flynn on 05-10-2022 AST [Catalytic activity/Vol] 25 U/L [facility] Serum or plasma beta globuli n measurement by electrophoresis (mass/volume)Ordered By: Lety Flynn on 05-10-2022 Beta globulin Elph [Mass/Vol] 1.1 g/dL 0.7-1.3 [facility] Serum or plasma calcium demian urement (mass/volume)Ordered By: Lety Flynn on 05-10-2022 Calcium [Mass/Vol] 9.4 mg/dL 8.2-10.2 [facility] Serum or plasma chloride carson surement (moles/volume)Ordered By: Lety Flynn on 05-10-2022 Chloride [Moles/Vol] 102 mmol/L 95-114 [facility] Serum or plasma gamma globul in measurement by electrophoresis (mass/volume)Ordered By: Lety Flynn on 05-10-2022 Gamma globulin Elph [Mass/Vol] 2.7 g/dL 0.4-1.8 [facility] Serum or plasma glucose demian urement (mass/volume)Ordered By: Lety Flynn on 05-10-2022 Glucose [Mass/Vol] 104 mg/dL 70-100 [facility] Comment on above: ADA recommended refe rence rangeRandom Glucose Reference Range is dependent on time and content of last meal. Glucose of more than 200 mg/dL in a nonstressed, ambulatory subject supports the diagnosis of Diabetes Mellitus. Serum or plasma potassium me asurement (moles/volume)Ordered By: Lety Flynn on 05-10-2022 Potassium [Moles/Vol] 4.1 mmol/L 3.5-5.1 [facility] Serum or plasma sodium measu rement (moles/volume)Ordered By: Lety Flynn on 05-10-2022 Sodium [Moles/Vol] 136 mmol/L 136-146 [facility] Serum or plasma total biliru bin measurement (mass/volume)Ordered By: Lety Flynn on 05-10-2022 Bilirubin [Mass/Vol] 0.6 mg/dL 0.3-1.2 [facility] Serum or plasma total carbon dioxide measurement (moles/volume)Ordered By: Lety Flynn on 05-10-2022 CO2 [Moles/Vol] 24.1 mmol/L 22.0-30.0 [facility] Serum or plasma urea nitroge n measurement (mass/volume)Ordered By: Lety Flynn on 05-10-2022 Urea nitrogen [Mass/Vol] 10 mg/dL 04-27 [facility] Albumin [Mass/volume] in Ser um or PlasmaOrdered By: Lety Flynn on 05-02-2022 Albumin [Mass/Vol] 3.7 g/dL 3.2-5.5 [facility] Basophils Auto (Bld) [#/Vol] Ordered By: Lety Flynn on 05-02-2022 Basophils (Bld) [#/Vol] 0.1 10*3/uL 0.0-0.2 [facility] Basophils/100 WBC Auto (Bld) Ordered By: Lety Flynn on 05-02-2022 Basophils/100 WBC (Bld) 1.0 % . [facility] Blood hemoglobin measurement (mass/volume)Ordered By: Lety Flynn on 05-02-2022 Hemoglobin (Bld) [Mass/Vol] 13.4 g/dL 11.8-15.4 [facility] Blood leukocytes automated c ount (number/volume)Ordered By: Lety Flynn on 05-02-2022 WBC (Bld) [#/Vol] 7.6 10*3/uL 4.5-11.0 [facility] Cholesterol [Mass/volume] in Serum or PlasmaOrdered By: Lety Flynn on 05-02-2022 Cholesterol [Mass/Vol] 174 mg/dL 140-200 [facility] Comment on above: Chol less than 200 m g/dl low riskChol 201-239 mg/dl borderline riskChol 240 mg/dl and greater high risk Cholesterol in LDL Calc [Mas s/Vol]Ordered By: Lety Flynn on 05-02-2022 Cholesterol in LDL [Mass/Vol] 101 mg/dL 0-100 [facility] Comment on above: LDL ATP III CLASSIFI CATIONLDL less than 100 mg/dL OptimalLDL 100-129 mg/dL Near or above optimalLDL 130-159 mg/dL Borderline highLDL 160-189 mg/dL HighLDL greater than 189 mg/dL Very high Cholesterol in VLDL Calc [Ma ss/Vol]Ordered By: Lety Flynn on 05-02-2022 Cholesterol in VLDL [Mass/Vol] 14 mg/dL [facility] Creatinine and Glomerular fi ltration rate.predicted panel (S/P/Bld)Ordered By: Lety Flynn on 05-02-2022 Creatinine [Mass/Vol] 0.98 mg/dL 0.44-1.03 [facility] Eosinophils Auto (Bld) [#/Vo l]Ordered By: Lety Flynn on 05-02-2022 Eosinophils (Bld) [#/Vol] 0.1 10*3/uL 0.0-0.45 [facility] Eosinophils/100 WBC Auto (Bl d)Ordered By: Lety Flynn on 05-02-2022 Eosinophils/100 WBC (Bld) 1.1 % . [facility] Erythrocyte distribution wid th Auto (RBC) [Ratio]Ordered By: Lety Flynn on 05-02-2022 Erythrocyte distribution width (RBC) [Ratio] 14.3 % 11.9-15.3 [facility] Estimated glomerular filtrat ion rate (GFR) non- AmericanOrdered By: Lety Flynn on 05-02-2022 GFR/1.73 sq M.predicted among non-blacks MDRD (S/P/Bld) [Vol rate/Area] 55 mL/Min [facility] Globulin Calc (S) [Mass/Vol] Ordered By: Lety Flynn on 05-02-2022 Globulin (S) [Mass/Vol] 5.0 g/dL [facility] Glucose mean value [Mass/vol ume] in Blood Estimated from glycated hemoglobinOrdered By: Lety Flynn on 05-02-2022 Average glucose Estimated from glycated hemoglobin (Bld) [Mass/Vol] 120 mg/dL [facility] Hematocrit Auto (Bld) [Volum e fraction]Ordered By: Lety Flynn on 05-02-2022 Hematocrit (Bld) [Volume fraction] 41.2 % 34.0-46.4 [facility] Hemoglobin A1c percentageOrd ered By: Lety Flynn on 05-02-2022 HbA1c (Bld) [Mass fraction] 5.8 % 4.3-5.6 [facility] Comment on above: Increased risk for d iabetes: 5.7 - 6.4diabetes: >6.4glycemic control for adults with diabetes: <7.0 Laboratory - Hematology and Cell countsOrdered By: Lety Flynn on 05-02-2022 Nucleated RBC/100 WBC (Bld) [Ratio] 0.2 % 0-0.5 [facility] Lymphocytes Auto (Bld) [#/Vo l]Ordered By: Lety Flynn on 05-02-2022 Lymphocytes (Bld) [#/Vol] 1.4 10*3/uL 1.00-4.8 [facility] Lymphocytes/100 WBC Auto (Bl d)Ordered By: Lety Flynn on 05-02-2022 Lymphocytes/100 WBC (Bld) 19.0 % . [facility] MCH Auto (RBC) [Entitic mass ]Ordered By: Lety Flynn on 05-02-2022 MCH (RBC) [Entitic mass] 28.9 pg 24.7-34.3 [facility] MCHC Auto (RBC) [Mass/Vol]Or dered By: Lety Flynn on 05-02-2022 MCHC (RBC) [Mass/Vol] 32.6 g/dL 32.0-35.0 [facility] MCV Auto (RBC) [Entitic vol] Ordered By: Lety Flynn on 05-02-2022 MCV (RBC) [Entitic vol] 88.5 fL 80-100 [facility] Monocytes Auto (Bld) [#/Vol] Ordered By: Lety Flynn on 05-02-2022 Monocytes (Bld) [#/Vol] 0.6 10*3/uL 0.0-0.8 [facility] Monocytes/100 WBC Auto (Bld) Ordered By: Lety Flynn on 05-02-2022 Monocytes/100 WBC (Bld) 7.6 % . [facility] Neutrophils Auto (Bld) [#/Vo l]Ordered By: Lety Flynn on 05-02-2022 Neutrophils (Bld) [#/Vol] 5.4 10*3/uL 1.8-7.7 [facility] Neutrophils/100 WBC Auto (Bl d)Ordered By: Lety Flynn on 05-02-2022 Neutrophils/100 WBC (Bld) 71.3 % . [facility] No Panel InformationOrdered By: Lety Flynn on 05-02-2022 Estimated GFR () > 60 mL/Min [facility] Comment on above: GFR estimated refere nce range: According to KDOQI guidelines, <60 ml/min/1.73m2 is sufficient to diagnose a patient with chronic kidney disease. Pharmacy Creatinine Clearance (Chem N/A [facility] Platelet mean volume Auto (B ld) [Entitic vol]Ordered By: Lety Flynn on 05-02-2022 Platelet mean volume (Bld) [Entitic vol] 8.0 fL 6.3-10.7 [facility] Platelets Auto (Bld) [#/Vol] Ordered By: Lety Flynn on 05-02-2022 Platelets (Bld) [#/Vol] 315 10*3/uL 150-450 [facility] Protein [Mass/volume] in Ser um or PlasmaOrdered By: Lety Flynn on 05-02-2022 Protein [Mass/Vol] 8.7 g/dL 6.1-7.9 [facility] RBC Auto (Bld) [#/Vol]Ordere d By: Lety Flynn on 05-02-2022 RBC (Bld) [#/Vol] 4.66 10*6/uL 3.60-5.00 [facility] Serum or plasma alanine rebolledo otransferase measurement without P-5'-P (enzymatic activiOrdered By: Lety Flynn on 05-02-2022 ALT No additional P-5'-P [Catalytic activity/Vol] 17 U/L 10-60 [facility] Serum or plasma albumin/glob ulin mass ratioOrdered By: Lety Flynn on 05-02-2022 Albumin/Globulin [Mass ratio] 0.7 {ratio} [facility] Serum or plasma alkaline vani sphatase measurement (enzymatic activity/volume)Ordered By: Lety Flynn on 05-02-2022 ALP [Catalytic activity/Vol] 87 U/L 32-92 [facility] Serum or plasma anion gap de terminationOrdered By: Lety Flynn on 05-02-2022 Anion gap [Moles/Vol] 12.3 mmol/L 6.0-15.0 [facility] Serum or plasma aspartate am inotransferase measurement (enzymatic activity/volume)Ordered By: Lety Flynn on 05-02-2022 AST [Catalytic activity/Vol] 24 U/L 10-42 [facility] Serum or plasma calcium demian urement (mass/volume)Ordered By: Lety Flynn on 05-02-2022 Calcium [Mass/Vol] 9.7 mg/dL 8.2-10.2 [facility] Serum or plasma chloride carson surement (moles/volume)Ordered By: Lety Flynn on 05-02-2022 Chloride [Moles/Vol] 101 mmol/L 95-114 [facility] Serum or plasma glucose demian urement (mass/volume)Ordered By: eLty Flynn on 05-02-2022 Glucose [Mass/Vol] 98 mg/dL 70-100 [facility] Comment on above: ADA recommended refe rence rangeRandom Glucose Reference Range is dependent on time and content of last meal. Glucose of more than 200 mg/dL in a nonstressed, ambulatory subject supports the diagnosis of Diabetes Mellitus. Serum or plasma high density lipoprotein (HDL) cholesterol measurementOrdered By: Lety Flynn on 05-02-2022 Cholesterol in HDL [Mass/Vol] 59 mg/dL 35-85 [facility] Comment on above: HDL CHOL ATP-III CLA SSIFICATION Cardiovascular RiskHDL > or equal to 60 mg/dL LOWHDL < 40 mg/dL HIGH Serum or plasma potassium me asurement (moles/volume)Ordered By: Lety Flynn on 05-02-2022 Potassium [Moles/Vol] 3.8 mmol/L 3.5-5.1 [facility] Serum or plasma sodium measu rement (moles/volume)Ordered By: Lety Flynn on 05-02-2022 Sodium [Moles/Vol] 135 mmol/L 136-146 [facility] Serum or plasma total biliru bin measurement (mass/volume)Ordered By: Lety Flynn on 05-02-2022 Bilirubin [Mass/Vol] 0.5 mg/dL 0.3-1.2 [facility] Serum or plasma total carbon dioxide measurement (moles/volume)Ordered By: Lety Flynn on 05-02-2022 CO2 [Moles/Vol] 25.5 mmol/L 22.0-30.0 [facility] Serum or plasma total choles terol/high density lipoprotein (HDL) cholesterol mass ratOrdered By: Lety Flynn on 05-02-2022 Cholesterol.total/Kiki sterol in HDL [Mass ratio] 2.9 {ratio} <5.0 [facility] Serum or plasma urea nitroge n measurement (mass/volume)Ordered By: Lety Flynn on 05-02-2022 Urea nitrogen [Mass/Vol] 17 mg/dL 9-23 [facility] TSH DL <= 0.005 mIU/L QnOrde red By: Lety Flynn on 05-02-2022 TSH Qn 2.34 m[IU]/L 0.45-5.33 [facility] Triglyceride [Mass/volume] i n Serum or PlasmaOrdered By: Lety Flynn on 05-02-2022 Triglyceride [Mass/Vol] 72 mg/dL 35-149 [facility] Comment on above: TRIG ATP III CLASSIF ICATIONTRIG less than 150 mg/dL NormalTRIG 150-199 mg/dL Borderline highTRIG 200-500 mg/dL High TRIG greater than 500 mg/dL Very highStandard traceable to the Center for Disease Conrtrol and Prevention (CDC) test method. Vital Signs Date Time Vital Sign Value Performing Clinician Facility 01-08-2025 13:56-0400 Body weight 63.5 kg Petra DeWilde DO Work Phone: [facility] 01-08-2025 13:56-0400 Diastolic blood pressure 65 mm[Hg] Petra DeWilde DO Work Phone: [facility] 01-08-2025 13:56-0400 Heart rate 65 /min Petra DeWilde DO Work Phone: [facility] 01-08-2025 13:56-0400 Respiratory rate 18 /min Petra DeWilde DO Work Phone: [facility] 01-08-2025 13:56-0400 SaO2% (BldA) [Mass fraction] 97 % Petra DeWilde DO Work Phone: [facility] 01-08-2025 13:56-0400 Systolic blood pressure 127 mm[Hg] Petar DeWilde DO Work Phone: [facility] 01-01-2025 11:38-0400 Body height 162.56 cm Petra DeWilde DO Work Phone: [facility] 01-01-2025 11:38-0400 Body mass index (BMI) [Ratio] 24 kg/m2 Petra DeWilde DO Work Phone: [facility] 01-01-2025 11:38-0400 Body temperature 97.7 [degF] Petra DeWilde DO Work Phone: [facility] 01-01-2025 11:38-0400 Body weight 63.5 kg Petra DeWilde DO Work Phone: [facility] 01-01-2025 11:38-0400 Diastolic blood pressure 73 mm[Hg] Petra DeWilde DO Work Phone: [facility] 01-01-2025 11:38-0400 Heart rate 87 /min Petra DeWilde DO Work Phone: [facility] 01-01-2025 11:38-0400 Respiratory rate 16 /min Petra DeWilde DO Work Phone: [facility] 01-01-2025 11:38-0400 SaO2% (BldA) [Mass fraction] 95 % Petra DeWilde DO Work Phone: [facility] 01-01-2025 11:38-0400 Systolic blood pressure 128 mm[Hg] Petra DeWilde DO Work Phone: [facility] 10-21-2024 10:59-0400 Body height 162.56 cm Petra DeWilde DO Work Phone: [facility] 10-21-2024 10:59-0400 Body mass index (BMI) [Ratio] 23 kg/m2 Petra DeWilde DO Work Phone: [facility] 10-21-2024 10:59-0400 Body weight 60.78 kg Petra DeWilde DO Work Phone: [facility] 10-21-2024 10:59-0400 Diastolic blood pressure 70 mm[Hg] Petra DeWilde DO Work Phone: [facility] 10-21-2024 10:59-0400 Heart rate 67 /min Petra DeWilde DO Work Phone: [facility] 10-21-2024 10:59-0400 SaO2% (BldA) [Mass fraction] 96 % Petra DeWilde DO Work Phone: [facility] 10-21-2024 10:59-0400 Systolic blood pressure 102 mm[Hg] Petra DeWilde DO Work Phone: [facility] 07-22-2024 11:12-0500 Body height 162.56 cm Petra DeWilde DO Work Phone: [facility] 07-22-2024 11:12-0500 Body mass index (BMI) [Ratio] 22.5 kg/m2 Petra DeWilde DO Work Phone: [phone] [place] [address] 07-22-2024 11:12-0500 Body weight 59.59 kg Petra DeWilde DO Work Phone: [facility] 07-22-2024 11:12-0500 Diastolic blood pressure 70 mm[Hg] Petra DeWilde DO Work Phone: [facility] 07-22-2024 11:12-0500 Heart rate 93 /min Petra DeWilde DO Work Phone: [facility] 07-22-2024 11:12-0500 Respiratory rate 18 /min Petra DeWilde DO Work Phone: [facility] 07-22-2024 11:12-0500 SaO2% (BldA) [Mass fraction] 97 % Petra DeWilde DO Work Phone: [facility] 07-22-2024 11:12-0500 Systolic blood pressure 120 mm[Hg] Petra DeWilde DO Work Phone: [facility] 04-07-2024 11:40-0400 Body height 162.56 cm SARA Flynn Work Phone: [facility] 04-07-2024 11:40-0400 Body mass index (BMI) [Ratio] 19.4 kg/m2 DNP Lety Kaple Work Phone: [facility] 04-07-2024 11:40-0400 Body temperature 97.3 [degF] DNP Lety Triplettle Work Phone: [facility] 04-07-2024 11:40-0400 Body weight 51.42 kg DNP Lety Triplettle Work Phone: [facility] 04-07-2024 11:40-0400 Diastolic blood pressure 65 mm[Hg] DNP Lety Kaple Work Phone: [facility] 04-07-2024 11:40-0400 Heart rate 90 /min DNP Lety Triplettle Work Phone: [facility] 04-07-2024 11:40-0400 Respiratory rate 20 /min DNP Lety Triplettle Work Phone: [facility] 04-07-2024 11:40-0400 SaO2% (BldA) [Mass fraction] 95 % DNP Lety Flynn Work Phone: [facility] 04-07-2024 11:40-0400 Systolic blood pressure 122 mm[Hg] DNP Lety Triplettle Work Phone: [facility] 02-27-2024 14:34-0400 Body height 162.56 cm [facility] 02-27-2024 14:34-0400 Body mass index (BMI) [Ratio] 19.1 kg/m2 [facility] 02-27-2024 14:34-0400 Body weight 50.43 kg [facility] 02-27-2024 14:34-0400 Diastolic blood pressure 70 mm[Hg] [facility] 02-27-2024 14:34-0400 Heart rate 77 /min [facility] 02-27-2024 14:34-0400 Respiratory rate 18 /min [facility] 02-27-2024 14:34-0400 SaO2% (BldA) [Mass fraction] 95 % [facility] 02-27-2024 14:34-0400 Systolic blood pressure 120 mm[Hg] [facility] 02-18-2024 11:25-0400 Blood Pressure Location Cinthya Orzech [facility] 02-18-2024 11:25-0400 Diastolic blood pressure 68 mm[Hg] Cinhtya Orzech [facility] 02-18-2024 11:25-0400 Heart rate 68 /min Cinthya Orzech [facility] 02-18-2024 11:25-0400 Respiratory rate 16 /min Cinthya Orzech [facility] 02-18-2024 11:25-0400 Systolic blood pressure 110 mm[Hg] Cinthya Orzech [facility] 12-10-2023 10:40-0400 Body height 162.56 cm [facility] 12-10-2023 10:40-0400 Body mass index (BMI) [Ratio] 18.9 kg/m2 [facility] 12-10-2023 10:40-0400 Body weight 49.98 kg [facility] 12-10-2023 10:40-0400 Diastolic blood pressure 80 mm[Hg] [facility] 12-10-2023 10:40-0400 Heart rate 96 /min [facility] 12-10-2023 10:40-0400 Respiratory rate 18 /min [facility] 12-10-2023 10:40-0400 SaO2% (BldA) [Mass fraction] 93 % [facility] 12-10-2023 10:40-0400 Systolic blood pressure 117 mm[Hg] [facility] 07-02-2023 13:15-0500 Body height 162.56 cm Imad Asaad Other [facility] Other 07-02-2023 13:15-0500 Body mass index (BMI) [Ratio] 19.57 kg/m2 Imad Asaad Other [facility] Other 07-02-2023 13:15-0500 Body weight 51.71 kg Imad Asaad Other [facility] Other 07-02-2023 13:15-0500 Diastolic blood pressure 76 mm[Hg] Imad Asaad Other [facility] Other 07-02-2023 13:15-0500 Systolic blood pressure 124 mm[Hg] Imad Asaad Other [facility] Other 05-20-2023 13:29-0400 Blood Pressure Location Garcia TURNER [facility] 05-20-2023 13:29-0400 Diastolic blood pressure 64 mm[Hg] Garcia TURNER [facility] 05-20-2023 13:29-0400 Heart rate 88 /min Garcia TURNER [facility] 05-20-2023 13:29-0400 Respiratory rate 16 /min Garcia TURNER [facility] 05-20-2023 13:29-0400 Systolic blood pressure 111 mm[Hg] Garcia TURNER [facility] 05-17-2023 15:26-0400 Body temperature 98.4 [degF] DNP Lety Gee Work Phone: [facility] 05-17-2023 15:26-0400 Body weight 53.07 kg DNP Lety Triplettle Work Phone: [facility] 05-17-2023 15:26-0400 Diastolic blood pressure 62 mm[Hg] DNP Lety Kaple Work Phone: [facility] 05-17-2023 15:26-0400 Heart rate 114 /min DNP Lety Triplettle Work Phone: [facility] 05-17-2023 15:26-0400 Respiratory rate 16 /min DNP Lety Kaple Work Phone: [facility] 05-17-2023 15:26-0400 SaO2% (BldA) [Mass fraction] 92 % DNP Lety Triplettle Work Phone: [facility] 05-17-2023 15:26-0400 Systolic blood pressure 119 mm[Hg] DNP Lety Triplettle Work Phone: [facility] 04-30-2023 14:30-0400 Body height 162.56 cm Lety Kaportega Other [facility] Other 04-30-2023 14:30-0400 Body mass index (BMI) [Ratio] 21.63 kg/m2 Lety Gee Other [facility] Other 04-30-2023 14:30-0400 Body temperature 100.2 [degF] Lety Gee Other [facility] Other 04-30-2023 14:30-0400 Body weight 57.15 kg Lety Triplettortega Other [facility] Other 04-30-2023 14:30-0400 Diastolic blood pressure 60 mm[Hg] Lety Flynn Other [facility] Other 04-30-2023 14:30-0400 Respiratory rate 18 /min Lety Kaple Other [facility] Other 04-30-2023 14:30-0400 SaO2% (BldA) [Mass fraction] 98 % Lety Kaple Other [facility] Other 04-30-2023 14:30-0400 Systolic blood pressure 118 mm[Hg] Lety Kaple Other [facility] Other 04-12-2023 19:27-0400 Diastolic blood pressure 77 mm[Hg] DNP Lety Kaple Work Phone: [facility] 04-12-2023 19:27-0400 Heart rate 96 /min DNP Lety Kaple Work Phone: [facility] 04-12-2023 19:27-0400 Respiratory rate 18 /min DNP Lety Kaple Work Phone: [facility] 04-12-2023 19:27-0400 SaO2% (BldA) [Mass fraction] 94 % DNP Lety Kaple Work Phone: [facility] 04-12-2023 19:27-0400 Systolic blood pressure 162 mm[Hg] DNP Lety Kaple Work Phone: [facility] 04-12-2023 13:11-0400 Body height 165.1 cm DNP Lety Kaple Work Phone: [facility] 04-12-2023 13:11-0400 Body temperature 97.6 [degF] DNP Lety Kaple Work Phone: [facility] 04-12-2023 13:11-0400 Body weight 57.7 kg DNP Lety Kaple Work Phone: [facility] 04-12-2023 12:15-0400 Body height 162.56 cm Lety Flynn Other [facility] Other 04-12-2023 12:15-0400 Body mass index (BMI) [Ratio] 21.63 kg/m2 Lety Flynn Other [facility] Other 04-12-2023 12:15-0400 Body weight 57.15 kg Lety Gee Other [facility] Other 04-12-2023 12:15-0400 Diastolic blood pressure 60 mm[Hg] Lety Flynn Other [facility] Other 04-12-2023 12:15-0400 Respiratory rate 18 /min Lety Flynn Other [facility] Other 04-12-2023 12:15-0400 SaO2% (BldA) [Mass fraction] 97 % Letyjaimee Flynn Other [facility] Other 04-12-2023 12:15-0400 Systolic blood pressure 100 mm[Hg] Lety Flynn Other [facility] Other 02-26-2023 09:30-0400 Body height 162.56 cm Cornel Olexa Other [facility] Other 02-26-2023 09:30-0400 Body mass index (BMI) [Ratio] 24.54 kg/m2 Cornel Olexa Other [facility] Other 02-26-2023 09:30-0400 Body weight 64.86 kg Cornel Olexa Other [facility] Other 01-03-2023 09:15-0400 Body height 162.56 cm Lety Gee Other [facility] Other 01-03-2023 09:15-0400 Body mass index (BMI) [Ratio] 24.68 kg/m2 Lety Flynn Other [facility] Other 01-03-2023 09:15-0400 Body weight 65.23 kg Lety Gee Other [facility] Other 01-03-2023 09:15-0400 Diastolic blood pressure 60 mm[Hg] Lety Flynn Other [facility] Other 01-03-2023 09:15-0400 Respiratory rate 18 /min Lety Flynn Other [facility] Other 01-03-2023 09:15-0400 SaO2% (BldA) [Mass fraction] 96 % Letyjaimee Flynn Other [facility] Other 01-03-2023 09:15-0400 Systolic blood pressure 120 mm[Hg] Lety Flynn Other [facility] Other 11-05-2022 14:00-0400 Body height 162.56 cm Laron Gomes Other [facility] Other 11-05-2022 14:00-0400 Body mass index (BMI) [Ratio] 24.54 kg/m2 Laron Gomes Other [facility] Other 11-05-2022 14:00-0400 Body temperature 97.1 [degF] Laron Gomes Other [facility] Other 11-05-2022 14:00-0400 Body weight 64.86 kg Laron Benderno Other [facility] Other 11-05-2022 14:00-0400 Diastolic blood pressure 70 mm[Hg] Laron Benderno Other [facility] Other 11-05-2022 14:00-0400 Respiratory rate 20 /min Laron Benderno Other [facility] Other 11-05-2022 14:00-0400 SaO2% (BldA) [Mass fraction] 95 % Laron Gomes Other [facility] Other 11-05-2022 14:00-0400 Systolic blood pressure 150 mm[Hg] Laron Benderno Other [facility] Other 09-14-2022 13:55-0500 Diastolic blood pressure 75 mm[Hg] DNP Lety Gee Work Phone: [facility] 09-14-2022 13:55-0500 Heart rate 62 /min DNP Lety Flynn Work Phone: [facility] 09-14-2022 13:55-0500 Systolic blood pressure 145 mm[Hg] DNP Lety Gee Work Phone: [facility] 09-03-2022 16:15-0500 Body height 162.56 cm Lety Flynn Other [facility] [employer] Other 09-03-2022 16:15-0500 Body mass index (BMI) [Ratio] 24.18 kg/m2 Lety Triplettle Other [facility] Other 09-03-2022 16:15-0500 Body weight 63.91 kg Lety Triplettle Other [facility] Other 09-03-2022 16:15-0500 Diastolic blood pressure 78 mm[Hg] Lety Kaple Other [facility] Other 09-03-2022 16:15-0500 Respiratory rate 20 /min Lety Kaple Other [facility] Other 09-03-2022 16:15-0500 SaO2% (BldA) [Mass fraction] 98 % Lety Triplettortega Other [facility] Other 09-03-2022 16:15-0500 Systolic blood pressure 122 mm[Hg] Lety Triplettle Other [facility] Other 08-24-2022 11:16-0500 Body temperature 97.8 [degF] DNP Lety Kaple Work Phone: [facility] 08-24-2022 11:16-0500 Body weight 97.2 kg DNP Lety Kaple Work Phone: [facility] 08-24-2022 11:16-0500 Diastolic blood pressure 68 mm[Hg] DNP Lety Kaple Work Phone: [facility] 08-24-2022 11:16-0500 Heart rate 86 /min DNP Lety Kaple Work Phone: [facility] 08-24-2022 11:16-0500 Respiratory rate 16 /min DNP Lety Kaple Work Phone: [facility] 08-24-2022 11:16-0500 SaO2% (BldA) [Mass fraction] 95 % DNP Lety Kaple Work Phone: [facility] 08-24-2022 11:16-0500 Systolic blood pressure 137 mm[Hg] DNP Lety Kaple Work Phone: [facility] 07-11-2022 14:34-0500 Body height 165.1 cm DNP Lety Kaple Work Phone: [facility] 07-11-2022 14:34-0500 Body mass index (BMI) [Ratio] 22.6 kg/m2 DNP Lety Kaple Work Phone: [facility] 07-11-2022 14:34-0500 Body weight 61.68 kg DNP Lety Kaple Work Phone: [phone] [place] [address] 07-11-2022 14:28-0500 Body temperature 98.1 [degF] DNP Lety Kaple Work Phone: [facility] 07-11-2022 14:28-0500 Diastolic blood pressure 76 mm[Hg] DNP Lety Kaple Work Phone: [facility] 07-11-2022 14:28-0500 Heart rate 87 /min DNP Lety Kaple Work Phone: [facility] 07-11-2022 14:28-0500 Respiratory rate 18 /min DNP Lety Kaple Work Phone: [facility] 07-11-2022 14:28-0500 Systolic blood pressure 145 mm[Hg] DNP Lety Kaple Work Phone: [facility] 06-27-2022 14:33-0500 Body height 165.1 cm DNP Lety Kaple Work Phone: [phone] [place] [address] 06-27-2022 14:33-0500 Body mass index (BMI) [Ratio] 22.6 kg/m2 SARA Flynn Work Phone: [facility] 06-27-2022 14:33-0500 Body weight 61.68 kg DNP Lety Flynn Work Phone: [facility] 06-18-2022 12:30-0500 Body height 162.56 cm Laron Benderno Other [facility] Other 06-18-2022 12:30-0500 Body mass index (BMI) [Ratio] 23.34 kg/m2 Christjoseer Mireya Other [facility] Other 06-18-2022 12:30-0500 Body temperature 97.6 [degF] Laron Pottsdano Other [facility] Other 06-18-2022 12:30-0500 Body weight 61.69 kg Hamzaher Mireya Other [facility] Other 06-18-2022 12:30-0500 Diastolic blood pressure 76 mm[Hg] Hamzaher Mireya Other [facility] Other 06-18-2022 12:30-0500 Respiratory rate 20 /min Christjoseer Mireya Other [facility] Other 06-18-2022 12:30-0500 SaO2% (BldA) [Mass fraction] 97 % Hamzaher Mireya Other [facility] Other 06-18-2022 12:30-0500 Systolic blood pressure 128 mm[Hg] Hamzaher Mireya Other [facility] Other 06-12-2022 11:45-0500 Body height 162.56 cm Lety Flynn Other [facility] Other 06-12-2022 11:45-0500 Body mass index (BMI) [Ratio] 23.67 kg/m2 Lety Flynn Other [facility] Other 06-12-2022 11:45-0500 Body weight 62.55 kg Lety Flynn Other [facility] Other 06-12-2022 11:45-0500 Diastolic blood pressure 60 mm[Hg] Lety Flynn Other [facility] Other 06-12-2022 11:45-0500 Respiratory rate 18 /min Lety Flynn Other [facility] Other 06-12-2022 11:45-0500 SaO2% (BldA) [Mass fraction] 98 % Lety Flynn Other [facility] Other 06-12-2022 11:45-0500 Systolic blood pressure 110 mm[Hg] Lety Flynn Other [facility] Other 06-04-2022 14:40-0400 Body height 162.56 cm Mckenzie Bates Other [facility] Other 06-04-2022 14:40-0400 Body mass index (BMI) [Ratio] 23.17 kg/m2 Mckenzie Bates Other [facility] Other 06-04-2022 14:40-0400 Body temperature 98.6 [degF] Mckenzie Bates Other [facility] Other 06-04-2022 14:40-0400 Body weight 61.24 kg Mckenzie Bates Other [facility] Other 06-04-2022 14:40-0400 Respiratory rate 18 /min Mckenzie Bates Other [facility] Other 06-04-2022 14:40-0400 SaO2% (BldA) [Mass fraction] 90 % Mckenzie Bates Other [facility] Other 05-18-2022 11:21-0400 Body temperature 98 [degF] DNP Lety Kaple Work Phone: [facility] 05-18-2022 11:21-0400 Body weight 63.18 kg DNP Lety Kaple Work Phone: [facility] 05-18-2022 11:21-0400 Diastolic blood pressure 75 mm[Hg] DNP Lety Kaple Work Phone: [facility] 05-18-2022 11:21-0400 Heart rate 76 /min DNP Lety Kaple Work Phone: [facility] 05-18-2022 11:21-0400 Respiratory rate 20 /min DNP Lety Kaple Work Phone: [facility] 05-18-2022 11:21-0400 SaO2% (BldA) [Mass fraction] 96 % DNP Lety Kaple Work Phone: [facility] 05-18-2022 11:21-0400 Systolic blood pressure 139 mm[Hg] DNP Lety Kaple Work Phone: [facility] 05-18-2022 11:04-0400 Body height 165.1 cm SARA Lety Triplettortega Work Phone: [facility] 05-02-2022 14:15-0400 Body height 162.56 cm Lety Gee Other [facility] Other 05-02-2022 14:15-0400 Body mass index (BMI) [Ratio] 24.01 kg/m2 Lety Gee Other [facility] Other 05-02-2022 14:15-0400 Body temperature 97.1 [degF] Lety Gee Other [facility] Other 05-02-2022 14:15-0400 Body weight 63.46 kg Lety Gee Other [facility] Other 05-02-2022 14:15-0400 Diastolic blood pressure 60 mm[Hg] Lety Kaportega Other [facility] Other 05-02-2022 14:15-0400 Respiratory rate 18 /min Lety Gee Other [facility] Other 05-02-2022 14:15-0400 SaO2% (BldA) [Mass fraction] 95 % Lety Gee Other [facility] Other 05-02-2022 14:15-0400 Systolic blood pressure 110 mm[Hg] Lety Flynn Other [facility] Other 11-06-2021 14:15-0400 Body height 162.56 cm Laron Gomes Other [facility] Other 11-06-2021 14:15-0400 Body mass index (BMI) [Ratio] 24.03 kg/m2 Laron Benderno Other [facility] Other 11-06-2021 14:15-0400 Body temperature 96.7 [degF] Laron Pottsdano Other [facility] Other 11-06-2021 14:15-0400 Body weight 63.5 kg Laron Pottsdano Other [facility] Other 11-06-2021 14:15-0400 Diastolic blood pressure 78 mm[Hg] Laron Pottsdano Other [facility] Other 11-06-2021 14:15-0400 Respiratory rate 20 /min aLron Pottsdano Other [facility] Other 11-06-2021 14:15-0400 SaO2% (BldA) [Mass fraction] 95 % Laron Pottsdano Other [facility] Other 11-06-2021 14:15-0400 Systolic blood pressure 142 mm[Hg] Stewbrigette Pottsdano Other [facility] Other 05-30-2021 12:00-0400 Body height 162.56 cm Lety Flynn Other [facility] Other 05-30-2021 12:00-0400 Body mass index (BMI) [Ratio] 24.37 kg/m2 Lety Flynn Other [facility] Other 05-30-2021 12:00-0400 Body temperature 97 [degF] Lety Kaple Other [facility] Other 05-30-2021 12:00-0400 Body weight 64.41 kg Lety Triplettortega Other [facility] Other 05-30-2021 12:00-0400 Diastolic blood pressure 60 mm[Hg] Lety Uzielle Other [facility] Other 05-30-2021 12:00-0400 Respiratory rate 18 /min Lety Kaple Other [facility] Other 05-30-2021 12:00-0400 SaO2% (BldA) [Mass fraction] 98 % Lety Uzielle Other [facility] Other 05-30-2021 12:00-0400 Systolic blood pressure 100 mm[Hg] Lety Uzielle Other [facility] Other 04-28-2021 12:30-0400 Body height 162.56 cm Lety Kaportega Other [facility] Other 04-28-2021 12:30-0400 Body temperature 97.6 [degF] Lety Gee Other [facility] Other 04-28-2021 12:30-0400 Diastolic blood pressure 66 mm[Hg] Lety Uzielle Other [facility] Other 04-28-2021 12:30-0400 Respiratory rate 18 /min Lety Uzielle Other [facility] Other 04-28-2021 12:30-0400 SaO2% (BldA) [Mass fraction] 97 % Lety Gee Other [facility] [employer] Other 04-28-2021 12:30-0400 Systolic blood pressure 111 mm[Hg] Lety Gee Other [facility] [employer] Other Encounters Encounter Date Encounter Type Care Provider Facility Start: 01-08-2025 Registered Recurring [facility] Start: 01-08-2025 End: 01-08-2025 ambulatory Petra DeWilde DO Work Phone: [facility] Work Phone: Start: 01-08-2025 End: 01-08-2025 Patient encounter procedure Petra DeWilde DO Work Phone: [facility] Work Phone: Start: 01-01-2025 End: 01-01-2025 ambulatory Petra DeWilde DO Work Phone: [facility] Work Phone: Start: 01-01-2025 End: 01-01-2025 Patient encounter procedure Petra DeWilde DO Work Phone: [facility] Work Phone: Start: 12-17-2024 Registered Recurring Petra D eWilde DO [facility] Work [facility]: Start: 12-17-2024 End: 12-17-2024 Patient encounter procedure Petra DeWilde DO Work Phone: [facility] Start: 12-17-2024 End: 12-17-2024 ambulatory Petra DeWilde Facility:[facility] Start: 12-17-2024 End: 12-21-2024 External Result Encounter Pete Erazo DO Work Phone: [facility] External Department Unsolicited Start: 12-17-2024 End: 12-21-2024 External Result Encounter Pete Erazo DO Work Phone: [facility] External Department Unsolicited Start: 10-21-2024 End: 10-21-2024 ambulatory Petra DeWilde DO Work Phone: [facility] Work Phone: Start: 10-21-2024 End: 10-21-2024 Patient encounter procedure Petra DeWilde DO Work Phone: [facility] Work Phone: Start: 07-24-2024 End: 07-24-2024 ambulatory Petra DeWilde Facility:[facility] Start: 07-24-2024 End: 07-24-2024 Patient encounter procedure Petra DeWilde DO Work Phone: [facility] Start: 07-22-2024 End: 07-22-2024 Patient encounter procedure Petra DeWilde DO Work Phone: [facility] [place] Work Phone: Start: 07-22-2024 End: 07-22-2024 ambulatory Petra DeWilde Facility:[facility] Start: 07-22-2024 End: 07-22-2024 Patient encounter procedure Petra DeWilde DO Work Phone: [facility] Work Phone: Start: 04-07-2024 End: 04-07-2024 ambulatory DNP Lety Gee Work Phone: [facility] Work Phone: Start: 04-07-2024 End: 04-07-2024 Patient encounter procedure DNP Lety Flynn Work Phone: [facility] Work Phone: Start: 04-01-2024 Non-patient / Non-visit DNP Lety Flynn Work Phone: [facility] [place] Work Phone: Start: 03-03-2024 End: 03-03-2024 Patient encounter procedure DNP Lety Flynn Work Phone: [facility] Start: 03-03-2024 End: 03-03-2024 ambulatory DNP Lety Flynn Work Phone: [facility] Work Phone: Start: 02-27-2024 End: 02-27-2024 ambulatory DNP Lety Flynn Work Phone: [facility] Work Phone: Start: 02-27-2024 End: 02-27-2024 Patient encounter procedure [facility] [place] Work Phone: Start: 02-18-2024 End: 02-18-2024 ambulatory Cinthya X Orzech Facility:[facility] Start: 02-18-2024 End: 02-18-2024 Lab Drop off Cinthya X Orzech [facility] Start: 02-18-2024 End: 02-18-2024 ambulatory Cinthya X Orzech [facility] Start: 02-18-2024 End: 02-18-2024 Patient encounter procedure Cinthya X Orzech [facility] Start: 02-04-2024 End: 02-04-2024 ambulatory Cinthya X Orzech Facility:[facility] Start: 02-04-2024 End: 02-04-2024 Patient encounter procedure [facility] X Orzech [facility] Start: 01-14-2024 End: 01-14-2024 ambulatory Cinthya X Orzech Facility:[facility] Start: 01-14-2024 End: 01-14-2024 Patient encounter procedure [facility] X Orzech [facility] Start: 12-17-2023 End: 12-17-2023 ambulatory Cinthya X Orzech Facility:[facility] Start: 12-17-2023 End: 12-17-2023 Patient encounter procedure [facility] X Orzech [facility] Start: 12-10-2023 End: 12-10-2023 ambulatory [facility] Work Phone: Start: 12-10-2023 End: 12-10-2023 Patient encounter procedure [facility] Work Phone: Start: 12-06-2023 Non-patient / Non-visit [facility] Physician [facility] Work Phone: Start: 09-17-2023 End: 09-17-2023 ambulatory Garcia TURNER Facility:[facility] Start: 09-17-2023 End: 09-17-2023 Patient encounter procedure Garcia TURNER [facility] Start: 09-09-2023 End: 09-09-2023 ambulatory Lety Flynn Other [facility] [employer] Other Start: 09-09-2023 Telephone encounter Lety De La Torre [facility] Start: 09-05-2023 End: 09-05-2023 ambulatory Lety Flynn Other [facility] Other Start: 09-05-2023 Telephone encounter Lety De [facility] [place] Start: 08-12-2023 End: 08-12-2023 ambulatory Garcia TURNER Facility:[facility] Start: 08-12-2023 End: 08-12-2023 Patient encounter procedure Garcia TURNER [facility] Start: 07-23-2023 End: 07-23-2023 ambulatory Lety Flynn Other [facility] Other Start: 07-23-2023 Telephone encounter Lety De La [facility] [place] Start: 07-02-2023 End: 07-02-2023 ambulatory Imad Asaad Other [facility] Other Start: 07-02-2023 FQHC visit new patient Imad Asaad [facility] Start: 06-11-2023 End: 06-11-2023 ambulatory Garcia TURNER Facility:[facility] Start: 06-11-2023 End: 06-11-2023 Patient encounter procedure Garcia TURNER [facility] Start: 05-20-2023 End: 05-20-2023 Lab Drop off Garcia TURNER [facility] Start: 05-20-2023 Telephone encounter Joshua Watts [facility] Start: 05-20-2023 End: 05-20-2023 ambulatory Garcia TURNER [facility] [employer] Other Start: 05-20-2023 End: 05-20-2023 Patient encounter procedure Garcia TURNER [facility] Start: 05-17-2023 End: 05-17-2023 Registered Recurring DNP Lety Flynn Work Phone: [facility] Work Phone: Start: 05-17-2023 End: 05-17-2023 ambulatory DNP Lety Flynn Work Phone: [facility] Work Phone: Start: 05-17-2023 Telephone encounter Lety De La Torre [facility] [place] Start: 05-16-2023 End: 05-16-2023 ambulatory Lety Kaportega Other [facility] Other Start: 05-16-2023 Telephone encounter Lety De La Torre [facility] [place] Start: 05-15-2023 End: 05-15-2023 ambulatory DNP Lety Flynn Work Phone: [facility] Work Phone: Start: 05-15-2023 End: 05-15-2023 Patient encounter procedure DNP Lety Flynn Work Phone: [facility] [place] Work Phone: Start: 05-13-2023 End: 05-13-2023 ambulatory Lety Kaportega Other [employer] Other Start: 05-13-2023 Telephone encounter Lety De La Torre [facility] [place] Start: 05-09-2023 End: 05-09-2023 ambulatory Lety Gee Other [facility] Other Start: 05-09-2023 Telephone encounter Lety De La Torre [facility] [place] Start: 05-06-2023 End: 05-06-2023 ambulatory Lety Kaple Other [facility] Other Start: 05-06-2023 Telephone encounter Lety Uzielle F [facility] Start: 05-01-2023 Telephone encounter Lety Uzielle [facility] Start: 05-01-2023 End: 05-01-2023 ambulatory DNP Lety Triplettle Work Phone: [facility] Work Phone: Start: 05-01-2023 End: 05-01-2023 Patient encounter procedure DNP Lety Flynn Work Phone: [facility] Start: 04-30-2023 End: 04-30-2023 ambulatory Lety Kaple Other [employer] Other Start: 04-30-2023 Office outpatient visit 40 minutes Lety Flynn [facility] [place] Start: 04-30-2023 Telephone encounter Lety Kaple [facility] Start: 04-25-2023 End: 04-25-2023 ambulatory Lety Kaple Other [employer] Other Start: 04-25-2023 Telephone encounter Lety Uzielle F [facility] Start: 04-22-2023 End: 04-22-2023 ambulatory LETY KAPLE Facility:[facility] Start: 04-17-2023 End: 04-17-2023 ambulatory Lety Kaple Other [facility] Other Start: 04-17-2023 Telephone encounter Lety Uzielle F [facility] Start: 04-16-2023 ambulatory LETY KAPLE Facility :[facility] Start: 04-16-2023 End: 04-16-2023 ambulatory DNP Lety Kaple Work Phone: [facility] Work Phone: Start: 04-16-2023 End: 04-16-2023 Patient encounter procedure DNP Lety Flynn Work Phone: [facility] Start: 04-15-2023 End: 04-15-2023 ambulatory Lety Flynn Other [employer] Other Start: 04-15-2023 Telephone encounter Lety De La Torre [facility] Start: 04-12-2023 End: 04-12-2023 ambulatory Lety Flynn Other [employer] Other Start: 04-12-2023 Office outpatient visit 40 minutes Lety Flynn [facility] Start: 04-12-2023 End: 04-12-2023 Emergency department patient visit DNP Lety Flynn Work Phone: [facility] Work Phone: Start: 04-01-2023 End: 04-01-2023 ambulatory Lety Flynn Other [employer] Other Start: 04-01-2023 Telephone encounter Lety De La Torre [facility] Start: 02-26-2023 End: 02-26-2023 ambulatory Cornel Lopez Other [employer] Other Start: 02-26-2023 Office outpatient ne w 45 minutes Cornel Olexa [facility] Start: 02-26-2023 End: 02-26-2023 Patient encounter procedure DNP Lety Flynn Work Phone: [facility] Start: 01-03-2023 End: 01-03-2023 ambulatory Letyjaimee Triplettortega Other [facility] Other Start: 01-03-2023 Office outpatient visit 25 minutes Lety Flynn [facility] [place] Start: 11-05-2022 End: 11-05-2022 ambulatory Laron Gomes Other [employer] Other Start: 11-05-2022 Office outpatient visit 15 minutes Laron Gomes [facility] Start: 09-18-2022 End: 09-18-2022 ambulatory Lety Flynn Other [facility] Other Start: 09-18-2022 Telephone encounter Lety Flynn [facility] Start: 09-14-2022 End: 09-14-2022 ambulatory DNP Lety Flynn Work Phone: [facility] [employer] Work Phone: Start: 09-14-2022 End: 09-14-2022 Patient encounter procedure DNP Lety Flynn Work Phone: [facility] Work Phone: Start: 09-11-2022 End: 09-11-2022 ambulatory Lety Flynn Other [employer] Other Start: 09-11-2022 Telephone encounter Lety Gee [facility] Start: 09-07-2022 ambulatory Facility:[id number] Start: 09-07-2022 End: 09-07-2022 ambulatory DNP Lety Triplettle Work Phone: [facility] Work Phone: Start: 09-07-2022 End: 09-07-2022 Patient encounter procedure DNP Lety Triplettle Work Phone: [facility]Electrodiagnostics Work Phone: Start: 09-03-2022 End: 09-03-2022 ambulatory Lety Gee Other [facility] Other Start: 09-03-2022 Patient encounter procedure Lety Triplettortega [facility] [place] Start: 08-24-2022 End: 08-24-2022 ambulatory DNP Lety Flynn Work Phone: [facility] Work Phone: Start: 08-24-2022 End: 08-24-2022 Registered Recurring DNP Lety Flynn Work Phone: [facility] Work Phone: Start: 07-16-2022 End: 07-16-2022 ambulatory Lety Flynn Other [facility] Other Start: 07-16-2022 Telephone encounter Lety Gee [facility] [place] Start: 07-11-2022 End: 07-11-2022 ambulatory DNP Lety Flynn Work Phone: [facility] Work Phone: Start: 07-11-2022 End: 07-11-2022 Discharged Recurring DNP Lety Flynn Work Phone: [facility] [place] Start: 06-18-2022 End: 06-18-2022 ambulatory Lraon Benderno Other [facility] Other Start: 06-18-2022 Office outpatient visit 25 minutes Christjoseer Mireya [facility] Start: 06-12-2022 End: 06-12-2022 ambulatory Lety Gee Other [facility] Other Start: 06-12-2022 Office outpatient visit 25 minutes Lety Gee [facility] [place] Start: 06-04-2022 End: 06-04-2022 ambulatory Mckenzie Bates Other [facility] Other Start: 06-04-2022 Office outpatient visit 15 minutes Mckenzie Jana [facility] Start: 06-01-2022 End: 06-01-2022 ambulatory Lety Flynn Other [employer] Other Start: 06-01-2022 Telephone encounter Lety Gee [facility] [place] Start: 05-21-2022 End: 05-21-2022 ambulatory Lety Flynn Other [employer] Other Start: 05-21-2022 Telephone encounter Lety Triplettortega [facility] Start: 05-18-2022 End: 05-18-2022 ambulatory DNP Lety Flynn Work Phone: [facility] Work Phone: Start: 05-18-2022 End: 05-18-2022 Registered Recurring DNP Lety Flynn Work Phone: [facility] Start: 05-18-2022 Registered Recurring DNP Sammie Flynn Work Phone: [facility] Start: 05-16-2022 End: 05-16-2022 ambulatory DNP Lety Flynn Work Phone: [facility] Work Phone: Start: 05-16-2022 End: 05-16-2022 Patient encounter procedure DNP Lety Flynn Work Phone: [facility]-Pet Scan Start: 05-11-2022 End: 05-11-2022 ambulatory Lety Flynn Other [employer] Other Start: 05-11-2022 Telephone encounter Lety Triplettortega [facility] Start: 05-10-2022 End: 05-10-2022 ambulatory DNP Lety Flynn Work Phone: [facility] Work Phone: Start: 05-10-2022 End: 05-10-2022 Patient encounter procedure DNP Lety Flynn Work Phone: [facility] [place] Start: 05-07-2022 End: 05-07-2022 ambulatory Lety Flynn Other [employer] Other Start: 05-07-2022 Telephone encounter Lety De La Torre [facility] Start: 05-02-2022 End: 05-02-2022 Patient encounter procedure DNP Lety Gee Work Phone: [facility] Start: 05-02-2022 End: 05-02-2022 ambulatory DNP Lety Gee Work Phone: [employer] Other Start: 05-02-2022 Office outpatient visit 40 minutes Lety Flynn [facility] Start: 01-12-2022 End: 01-12-2022 ambulatory Juliana Cassi Other [employer] Other Start: 01-12-2022 Telephone encounter Juliana Cassi [facility] Start: 11-06-2021 End: 11-06-2021 ambulatory Laron Gomes Other [facility] Other Start: 11-06-2021 Office outpatient visit 25 minutes Laron Pottsdano [facility] Start: 10-03-2021 End: 10-03-2021 ambulatory Laron Pottsdano Other [facility] Other Start: 10-03-2021 Telephone encounter Laron esquivel [facility] Start: 08-11-2021 End: 08-11-2021 ambulatory Lety Flynn Other [facility] Other Start: 08-11-2021 Telephone encounter Lety Triplettortega [facility] Start: 08-10-2021 End: 08-10-2021 ambulatory Lety Flynn Other [facility] Other Start: 08-10-2021 Telephone encounter Lety Triplettortega [facility] Start: 05-30-2021 Office outpatient visit 25 minutes Lety Flynn [facility] Family [facility] [place] Start: 05-30-2021 Telephone encounter Laron rangelo [facility] Start: 05-04-2021 Telephone encounter Anatoliy Nunez [facility] Start: 04-28-2021 Nursing evaluation o f patient and report Lety Gee [facility] [place] Start: 01-10-2016 Adult health examination Lety Triplettortega Other [employer] Other Procedures Date Procedure Procedure Detail Performing [...] Activity Detail Author Start: 10-21-2024 Patient referral [facility] Work Phone: Start: 09-14-2022 Radionuclide myocardial perfusion stress study NM aidan perf SPECT rest & str [facility] Start: 05-18-2022 [facility] Start: 05-16-2022 Positron emission tomography with computed tomography PET tumor init tx strat sb-mt [facility] Albumin [Mass/volume ] in Serum or Plasma [facility] Work Phone: Albumin/Globulin ratio [facility] Work Phone: Bacteria identified in Urine by Culture [facility] Comprehensive metabo lic 1999 panel - Serum or Plasma [facility] Comprehensive metabo lic 1999 panel - Serum or Plasma [facility] Comprehensive metabo lic 1999 panel - Serum or Plasma [facility] Comprehensive metabo lic 1999 panel - Serum or Plasma [facility] Comprehensive metabo lic 1999 panel - Serum or Plasma [facility] CT Abdomen and Pelvi s W contrast IV [facility] CT Chest WO contrast [facility] CT Chest WO contrast [facility] Electrophoresis: [id number] [facility] Work Phone: Electrophoresis: azqeh-4-zurolfrj [facility] Work Phone: Electrophoresis: beta-globulin [facility] Work Phone: Electrophoresis: cydney ma globulin [facility] Work Phone: Erythrocyte sediment ation rate by Photometric method [facility] Globulin [Mass/volum e] in Serum [facility] Work Phone: Glucose measurement estimated from glycated hemoglobin [facility] Work Phone: Hemoglobin A1c/Hemoglobin.total in Blood [facility] Work Phone: IgA [Mass/volume] in Serum or Plasma [facility] Work Phone: IgG [Mass/volume] in Serum or Plasma [facility] Work Phone: IgM [Mass/volume] in Serum or Plasma [facility] Work Phone: Wild Rose light chains.f ree [Mass/volume] in Serum [facility] Work Phone: [place] light chains.free/Lambda light chains.free [Mass Ratio] in Serum [facility] Work Phone: Lambda light chains. free [Mass/volume] in Serum or Plasma [facility] Work Phone: MG Breast - bilatera l Screening [facility] Patient Education [facility] Work Phone: Patient referral [facility] Work Phone: Protein [Mass/volume ] in Serum or Plasma [facility] Work Phone: Protein electrophore sis, serum Protein electrophoresis, serum Lab Routine 12/17/2024 2:40 PM EDT [facility] Work Phone: [facility] Immunizations Immunization Date Immunization Notes Care Provider Keerthi escobar 04-19-2022 influenza, seasonal, injectable Lety Flynn Other [facility] 05-16-2021 COVID-19 Vaccine Pfi zer - Documentation Purposes Only Lety Flynn Other [facility] 04-28-2021 influenza virus vaccine, unspecified formulation [facility] 04-28-2021 influenza, high dose seasonal, preservative-free Lety Kaple Other [employer] [facility] [employer] Other 09-26-2020 COVID-19 Vaccine Pfi zer - Documentation Purposes Only Lety Flynn Other [facility] 09-05-2020 COVID-19 Vaccine Pfi zer - Documentation Purposes Only Letyjaimee Flynn Other [facility] 04-21-2020 influenza, high dose seasonal, preservative-free Lety Kaple Other [facility] [employer] Other 04-21-2020 influenza virus vaccine, unspecified formulation [facility] 06-24-2019 influenza virus vaccine, unspecified formulation [facility] 06-24-2019 influenza, high dose seasonal, preservative-free Lety Kaple Other [facility] [employer] Other 06-24-2019 pneumococcal conjuga te vaccine, 13 valent Lety Flynn Other [facility] 10-27-2017 tetanus and diphther ia toxoids, adsorbed, preservative free, for adult use (5 Lf of tetanus toxoid and 2 Lf of diphtheria toxoid) [facility] 10-27-2017 tetanus toxoid, redu libby diphtheria toxoid, and acellular pertussis vaccine, adsorbed Lety Flynn Other [facility] 06-21-2015 influenza, injectabl e, quadrivalent, contains preservative Lety Flynn Other [facility] [employer] Other 06-21-2015 influenza, injectabl e, quadrivalent, preservative free [facility] 06-29-2013 influenza, injectabl e, quadrivalent, contains preservative Lety Flynn Other [facility] Payers Date Payer Category Payer Self-pay [id number] 2022 Medicare [id number] 2022 Medicare [id number] 2022 Unknown [id number] [id number] 2010 Medicare MEDICARE [id number] 1945 Unknown [id number] 2.16.840.1.889709.3.579.2. 356 1945 Unknown [id number] 2.16.840.1.313857.3.579.2. 727 1945 Unknown [id number] 2.16.840.1.844901.3.579.2. 727 1945 Unknown [id number] 2.16.840.1.000803.3.579.2. 727 1945 Unknown [id number] 2.16.840.1.438805.3.579.2. 72 1945 Unknown [id number] 2.16.840.1.131756.3.579.2. 727 1945 Unknown [id number] 2.16.840.1.094905.3.579.2. 72 1945 Unknown [id number] 2.16.840.1.281780.3.579.2. 72 1945 Unknown [id number] 2.16.840.1.168634.3.579.2. 72 1945 Unknown [id number] 2.16.840.1.970249.3.579.2. 727 Private Health Insurance [employer] [id number]. [id number] Unknown [id number] 2.16.840.1.390201.3.579.2. 531 Unknown [id number] 2.16840.1.168346.3.579.2. 531 Unknown [id number] 2.16.840.1.987192.3.579.2. 531 Unknown [id number] 2.16.840.1.246975.3.579.2. 531 Unknown [id number] 2.16.840.1.130930.3.579.2. 531 Unknown [id number] 2..840.1.692748.3.579.2. 531 Unknown [id number] 2.16.840.1.231688.3.579.2. 531 Social History Date Type Detail Facility Unknown if ever smoked [facility] Other Sex Assigned At [facility] Start: 04-22-2019 End: 04-07-2024 Tobacco smoking status NHIS Ex-smoker (finding) [facility] Start: 1945 Sex Assigned At Female [facility] Start: 04-12-2023 End: 07-16-2023 Tobacco smoking status NHIS Never smoked tobacco (finding) [facility] Tobacco smoking status Never [facility] Start: 08-21-2024 End: 01-08-2025 Sex Female (finding) [facility] Tobacco smoking status KYIS Tobacco smoking consumption unknown [facility] Start: 1945 Sex assigned at Not on file [facility] Functional Status Date Assessment Result Facility 02-18-2024 Functional Status N/A [facility] 09-17-2023 Functional Status N/A [facility] 06-07-2023 Functional Status N/A [facility] 05-20-2023 Functional Status N/A [facility] Clinical Notes 05-30-2021 to 10-21-2024 Note Date & Type Note Facility 10-21-2024 Evaluation note Diagnosis Onset Date Resolution MGUS (monoclonal gammopathy of unknown significance) acute October 21, 2024 10:57am Peripheral neuropathy acute Mar 2024 10:57am Vitamin B12 deficiency acute [facility] 2024 10:57am Breast cancer screening by mammogram noneactive October 10:57am [facility] Work Phone: 1(107) 281-527412-18-2024 Evaluation note* Diagnosis Onset Date Resolution Status Admit Date Peripheral neuropathy acute Dec ember 2023 11:05am [facility] Work Phone: 1(244) 478-777807-16-2024 Hospital Discharge instructions Patient Education 02/18/2024 12:04:17 [...] include: ?8 oz (237 mL) of milk, pwfwzxy-wrwhtadtvpqa-khkcx milk, and calcium- fortifiedfruit juice. Calcium-fortified means [...] ?Spinach (cooked), rhubarb, beets, sweet potatoes, and Swazi chard. ?Peanuts. ?Potato chips, jamaican fries, and baked potatoes with skin on. ?Nuts and nut products. ?Chocolate. If you regularly take a diuretic medicine, make sure to eat at least 1 or 2 servings of fruits or vegetables that are high in potassium each day. These include: ?Avocado. ?Banana. ?[place], prune, carrot, or tomato juice. ?Baked potato. [...] magnesium, fish oil, or vitamin B6. Take dczz-oeb-yplcnep and prescription medicines only as told by [...] Casseroles. Pizza. Lasagna. Frozen meals. Potato chips. Finnish fries. The items listed above may not [...] provider. Document Revised: 11/01/2022 Document Reviewed: 11/01/2022 [employer] Patient Education 2022 [employer]. 02/18/2024 12:04:15 Kidney Stones, Kqoj-vr-Rnmw Kidney Stones Kidney stones are rock-like masses [...] Follow these instructions at home: Medicines Take giec-wdk-qvfgipj and prescription medicines only as told by [...] provider. Document Revised: 03/26/2022 Document Reviewed: 03/26/2022 [employer] Patient Education 2022 [employer]. 02/18/2024 12:04:15 Hematuria, Adult Hematuria, Adult Hematuria [...] Follow these instructions at home: Medicines Take txed-cot-pickigj and prescription medicines only as told by [...] or the blood stops without treatment. Take pxnp-wdk-jedtelz and prescription medicines only as told by your health care provider. Drink enough fluid to keep your urine pale yellow. This information is not intended to replace advice given to you by your health care provider. Make sure you discuss any questions you have with your health care provider. Document Revised: 03/22/2021 Document Reviewed: 03/22/2021 Elsevier Patient Education 2022 [employer]. [facility] 07-16-2024 Evaluation + Plan note Diagnostic Tests Pending * Urine Culture 02/18/24 [facility]07-16-2024 NotePatient Education Nephrology Dietary Guidelines to [...] ? 8 oz (237 mL) of milk, bxrfvoc-totvfsfinryk-vzava milk, and calcium- fortifiedfruit juice. Calcium-fortified means [...] Spinach (cooked), rhubarb, beets, sweet potatoes, and Swazi chard. ? Peanuts. ? Potato chips, jamaican fries, and baked potatoes with skin on. ? Nuts and nut products. ? Chocolate. ? If you regularly take a diuretic medicine, make sure to eat at least 1 or 2 servings of fruits orvegetables that are high in potassium each day. These include: ? Avocado. ? Banana. ? [place], prune, carrot, or tomato juice. ? Baked [...] fish oil, or vitamin B6. ? Take blba-tgj-yqujtqo and prescription medicines only as told by your health care provider. Theseinclude suppleme (more content not included)...[facility]02-13-2024 Hospital Discharge instructions Patient Education 09/17/2023 [...] [facility] [address] , [place] [address]- Business (1) When:12/16/2023 13:25:22 Comments:With a bladder scan PVR [facility]02-13-2024 Note [id number] [facility] 09-17-2023 NoteCustom Cystoscopy ? Voiding after the [...] if you have a fever over 100 degrees.[facility] 07-23-2023 Evaluation note* Encounter Date Diagnosis Assessment Notes Treatment Notes Treatment Clinical Notes Jul, Chronic obstructive pulmonary disease, unspecified (ICD-10 - J44.9) [facility] Other 11-28-2023 Evaluation note* Encounter Date Diagnosis Assessment Notes Treatment Notes Treatment Clinical Notes Jun, Loss of appetite (ICD-10 - R63.0) Jun, Nausea (ICD-10 - R11.0) Jun, Trouble swallowing (ICD-10 - R13.10) [facility] Other 11-07-2023 Hospital Discharge instructions Patient Education [...] Urology [address], [place] [address]- Business (1) When: Unknown Comments:Office will call to schedule follow up [facility]11-07-2023 Note [id number] NoteCustom Cystoscopy ? Voiding after [...] if you have a fever over 100 degrees.[facility] 05-23-2023 Progress note Author Radha Zayas [facility] May 23, 2023 11:16am Note Date/Time May 17, 2023 4 :14pm [facility] at [address] [address] Hem/Onc Follow Up Note - OP Signed Patient: Jose Kim MR#: [id number] : 1945 Acct:[id number] Age/Sex: 78 / F Type: REG RCR [...] detected on protein electrophoresis. Immunofixation without monoclonality [place] lambda ratio is preserved. Elevated quantitative IgG. [...] of Kyara Flynn NP. She [facility] in [place] but gets all of her care through [facility]. Referred for elevated paraprotein labs, and [...] urology input. She had a PE at [facility] after hospitalization. We will get records [...] for coordination of care (as documented) and smtu-or-lbsf counseling of patient and/or family. [facility] - Medical History Medical History: Medical History [...] <Electronically signed by TRENTON Zayas> 05/23/23 [address] [facility] Work Phone: [phone]) 845-929910-16-2023 Hospital Discharge instructions Patient Education 05/20/2023 14:26:50 [...] including vitamins, herbs, eye drops, creams, and uurv-vaa-rvjnwfi medicines. Any problems you or family members [...] provider tells you to take them. Taking iiqt-fzj-hdhtydl medicines, vitamins, herbs, and supplements. Tests You [...] Follow these instructions at home: Medicines Take sqpm-ygs-gbpajzm and prescription medicines only as told by [...] provider. Document Revised: 04/04/2022 Document Reviewed: 03/03/2021 [employer] Patient Education 2022 [employer]. Follow Up Care 05/17/2023 14:32:14 With:YUE GILL, Garcia Swift, URL Address: [facility] [address], [place] [address]- When: Unknown Comments:Sched Cysto/UD [facility] 10-16-2023 NoteUrology Cystoscopy Cystoscopy is a procedure [...] including vitamins, herbs, eye drops, creams, and uapp-qmo-dmhejmy medicines. ? Any problems you or family [...] tells you to take them. ? Taking ukpn-zmz-cjnphlo medicines, vitamins, herbs, and supplements. Tests You [...] these instructions at home: Medicines ? Take nvrk-zcv-uyfrkyd and prescription medicines only as told by [...] or the department th (more content not included)...[facility] 05-17-2023 Evaluation note* Encounter Date Diagnosis Assessment Notes Treatment Notes Treatment Clinical Notes May, Anxiety (ICD-10 - F41.9) [facility] Other 10-05-2023 Evaluation note* Encounter Date Diagnosis Assessment Notes Treatment Notes Treatment Clinical Notes May, Gross hematuria (ICD-10 - R31.0) May, Other acute pulmonary embolism, unspecified whether acute cor pulmonale present (ICD-10 - I26.99) [facility] Other 10-02-2023 Evaluation note* Encounter Date Diagnosis Assessment Notes Treatment Notes Treatment Clinical Notes May, Other closed displaced fracture of proximal end of right humerus, sequela (ICD-10 - S42.291S) [facility] Other 09-27-2023 Hospital Discharge instructions Follow Up Care 05/01/2023 09:02:43 With:YUE GILL, Garcia Swift, URL Address: [facility] [address], [place] [address]- [phone] When: Unknown [facility] 09-26-2023 Evaluation note* Encounter Date Diagnosis Assessment [...] treatment plan after patient left the office. [facility] Other 09-08-2023 Evaluation note* Encounter Date Diagnosis Assessment Notes Treatment Notes Treatment Clinical Notes Apr, Gross hematuria (ICD-10 - R31.0) Jose is a 77 year old female who presents today for complaints of blood in urine. She started with blood in urine on 04/10/23. She was discharged home from [facility] in [place] 04/11/23. Blood in urine was not as bad as it is now. She was dx with UTI and is taking Cefdinir. She is on Eliquis 5 mg BID for PE. Today her pulse is in the 114s, BP 100/60. She is down over 20 pounds since being in [facility]. She was admitted to [facility] on 02/11/23. The reason for her being there was due to falling in [place] while on vacation and fractured right humerus, right sacral and right pubic rami fractures on 02/04/23. She was hospitalized in [place] on 02/04/23. Had some dysfunction with her kidneys while in the hospital at [place]. She stayed in the [facility] from 02/04/23-02/11/23 and transferred to [facility] on 02/11/2023. While she was in [facility], she developed a PE to her lungs and she was transferred to [facility] and was put on Eliquis. Has [...] internal bleeding. Patient is referred to the [facility] ER today. Report called to [facility] PAINTER AIRBRUSHCAITLIN Robles, patient and patient are in agreement and patient states that he will take her right over to [facility] ER. Apr, Other Homero benitezan christine amount of time was spent with this patient > 60 minutes including time spent with patient, prepping for patient and treatment plan after patient left the office. [facility] Other 06-01-2023 Evaluation note* Encounter Date Diagnosis [...] this time. We'll continue current treatment plan. [facility] Other 04-03-2023 Evaluation note* Encounter Date Diagnosis Assessment Notes Treatment Notes Treatment Clinical Notes Nov, Chronic obstructive pulmonary disease, unspecified (ICD-10 - J44.9) [facility] Other 02-03-2023 NoteProcedure/Quality: A two-dimensional transthoracic echocardiogram with colorNorth [employer] Other 01-30-2023 Evaluation note* Encounter Date Diagnosis Assessment Notes Treatment Notes Treatment Clinical Notes Aug, Medicare annual wellness visit, subsequent (ICD-10 - Z00.00) Personalized health advice was given to the beneficiary including a written plan for screenings discussed and provided. Advanced care planning reviewed and/or information given as requested. The above visit was performed by Laly WEINER, under direct supervision of Lety Flynn,SARA,TERRAZZO POLISHER,CARGO SURVEYOR. Document reviewed and amended by provider signed [...] (ICD-10 - I49.9) See above treatment plan. [facility] Other 01-20-2023 Progress note Author Pete Erazo [facility] August 24, 2022 11:38am Note Date/Time August 24, 2022 1 1:31am [facility] at [address] [address] Hem/Onc Follow Up Note - OP Signed Patient: Jose Kim MR#: [id number] : 1945 Acct:[id number] Age/Sex: 77 / F Type: REG RCR [...] detected on protein electrophoresis. Immunofixation without monoclonality Wild Rose lambda ratio is preserved. Elevated quantitative IgG. [...] of Kyara Flynn NP. She lives in [facility] but gets all of her care through [facility]. Referred for elevated paraprotein labs, and [...] for coordination of care (as documented) and uadu-ti-prve counseling of patient and/or family. [facility] - Medical History Medical History: Medical History [...] Globulin (PEP) 4.8 H, Albumin/Globulin (PEP) 0.7, Pfgxm-2-Nqoqkmvml 0.3, Kortf-5-Nikichtqv 1.0,Beta Globulins 1.1, Gamma Globulins 2.5 H, M-Hernando Not observed, PEP Note , IgG 2783 H, IgA 259, IgM 205, Serum Immunofixation , Free Wild Rose LC, Quant 89.6 H, Free Lambda LC, Quant 43.1 H, Free Wild Rose/Lambda Ratio 2.08 H 08/20/22 09:35: PHA Creatinine [...] % (Auto) 78.1, Lymph % (Auto) 12.0, [place] % (Auto) 9.1, Eos % (Auto) 0.3, Baso % (Auto) 0.5, Nucleat RBC Rel Count 0.0, Neut # (Auto) 6.9, Lymph # (Auto) 1.1, [place] # (Auto) 0.8, Eos # (Auto) 0.0, [...] by Pete Erazo II, DO> 08/24/22 [address] [facility] Work Phone: [phone]) 416-382312-12-2022 Evaluation note* Encounter Date Diagnosis Assessment Notes Treatment Notes Treatment Clinical Notes Jul, Chronic obstructive pulmonary disease, unspecified (ICD-10 - J44.9) [facility] Other 11-23-2022 Progress note Author Emma Samson [facility] June 27, 2022 2:33pm Note Date/Time June 27, 2022 2:33pm [facility] [address] [place] [address] Wound Center Provider Note Signed Patient: Jose Kim MR#: [id number] : 1945 Acct:[id number] Age/Sex: 77 / F Copies to: Lety Flynn, SARA Samson, TERRAZZO POLISHER~ HPI Date of Visit Date of Visit: Date of Service: 06/27/2022 Time of Service: 14:32 Narrative HPI: 06/13/22 Jose is a 77 year old female presenting to [facility] wound care program for an initial [...] wound start?: May 2022 Mode of Arrival/ [employer] [place] Worker: Personal vehicle Assistive Device Used Today: Cane [...] Infection Thickness: Full Bed Appearance: Beefy Red, Fannett and Yellow Percent of Wound Bed Granulated/Red: [...] By: <Electronically signed by TRENTON Samson> 06/27/221432 [facility] Work Phone: 1(580) 540-965111-16-2022 Progress note Author Emma Samson [facility] June 20, 2022 3:08pm Note Date/Time June 20, 2022 3:08pm [facility] [address] [place] [address] Wound Center Provider Note Signed Patient: Jose Kim MR#: [id number] : 1945 Acct:[id number] Age/Sex: 77 / F Copies to: SARA Tang APRN~ HPI Date of Visit Date of Visit: Date of Service: 06/20/2022 Time of Service: 15:05 Narrative HPI: 06/13/22 Jose is a 77 year old female presenting to [facility] wound care program for an initial [...] wound start?: May 2022 Mode of Arrival/ [place] Worker: Personal vehicle Assistive Device Used Today: Cane Lives with:: Spouse Appetite Description: Within Normal Limits Who helps w/ dressing change?: Self Smoking Status: Former smoker [facility] Vaccinated for COVID-19?: Yes Medical History (Updated [...] Infection Thickness: Full Bed Appearance: Beefy Red, Fannett and Yellow Percent of Wound Bed Granulated/Red: [...] 15 Dictated By: Emma Samson APRN DD/ [id number] Signed By: <Electronically signed by TRENTON Samson> 06/20/22 26[facility] Work Phone: [phone]) [phone] Evaluation note* Encounter Date Diagnosis Assessment Notes Treatment Notes Treatment Clinical Notes Jun, Chronic obstructive pulmonary disease, unspecified (ICD-10 - J44.9) [facility] Other 11-09-2022 Progress note Author Emma Samson [facility] June 13, 2022 2:30pm Note Date/Time June 13, 2022 2 :25pm [facility] [address] [place] [address] Wound Center Provider Note Signed Patient: Jose Kim MR#: [id number] : 1945 Acct:[id number] Age/Sex: 77 / F Copies to: SARA Tang APRN~ HPI Date of Visit Date of Visit: Date of Service: 06/13/2022 Time of Service: 14:20 Narrative HPI: 06/13/22 Jose is a 77 year old female presenting to [facility] wound care program for an initial [...] wound start?: May 2022 Mode of Arrival/ [place] Worker: Personal vehicle Assistive Device Used Today: Cane [...] Infection Thickness: Full Bed Appearance: Beefy Red, Fannett and Yellow Percent of Wound Bed Granulated/Red: [...] By: <Electronically signed by TRENTON Samson> 06/13/221429 [facility] Work Phone: [phone]) 114-119111-08-2022 Evaluation note* Encounter Date Diagnosis Assessment Notes [...] tomorrow at [facility] with [facility] wound care. Patient notified and states she will keep this appointment. She will keep dry and clean until seen by wound care tomorrow, follow wound care orders after that. Notify office should she need anything further with this. [facility] Other 10-31-2022 Evaluation note* Encounter Date Diagnosis Assessment Notes Treatment Notes Treatment Clinical Notes May, Chronic obstructive pulmonary disease with acute exacerbation (ICD-10 - J44.1) Take medications as directed. Use nebulizer or inhaler as directed. Take medication with food to prevent stomach upset. . Follow up with primary care provider is recommended if symptoms don''t improve. [facility] Other 10-15-2022 Progress note Author Pete Erazo [facility] May 19, 2022 12:56pm Note Date/Time May 18, 2022 1 1:38[facility] [place] [id number] Hem/Onc Follow Up Note - OP Signed Patient: Jose Kim MR#: [id number] : 1945 Acct:[id number] Age/Sex: 77 / F Type: REG RCR [...] Will check immunofixation with her next labs. Wild Rose lambda ratio is preserved. Elevated quantitative IgG. [...] of Kyara Flynn NP. She lives in [facility] but gets all of her care through [facility]. Referred for elevated paraprotein labs, and [...] for coordination of care (as documented) and eput-aa-nuvx counseling of patient and/or family. [facility] - Medical History Medical History: Medical History [...] signed by Pete Erazo II, DO> 05/19/22 [facility] Work Phone: [phone] Evaluation note* Encounter Date Diagnosis Assessment Notes Treatment Notes Treatment Clinical Notes May, Multiple lung nodule s on CT (ICD-10 - R91.8) May, Shortness of breath (ICD-10 - R06.02) May, Hyperproteinemia (ICD-10 - E88.09) [facility] Other 10-03-2022 Evaluation note* Encounter Date Diagnosis Assessment Notes Treatment Notes Treatment Clinical Notes May, Hyperproteinemia (ICD-10 - E88.09) [facility] Other 09-28-2022 Evaluation note* Encounter Date Diagnosis Assessment Notes Treatment Notes Treatment Clinical Notes Apr, Chronic obstructive pulmonary disease, unspecified (ICD-10 - J44.9) Jose is a 77 year old female who presents today stating that she needs to get in to see management trainee marketing sooner than June. She was recommended to [...] continue current treatment plan pending lab results. [facility] Other 06-10-2022 Evaluation note* Encounter Date Diagnosis Assessment Notes Treatment Notes Treatment Clinical Notes Jan, Chronic obstructive pulmonary disease, unspecified (ICD-10 - J44.9) [facility] Other 04-04-2022 Evaluation note* Encounter Date Diagnosis Assessment Notes Treatment Notes Treatment Clinical Notes Nov, Chronic obstructive pulmonary disease, unspecified (ICD-10 - J44.9) [facility] Other 03-01-2022 Evaluation note* Encounter Date Diagnosis Assessment Notes Treatment Notes Treatment Clinical Notes Oct, Chronic obstructive pulmonary disease, unspecified (ICD-10 - J44.9) [facility] Other 01-06-2022 Evaluation note* Encounter Date Diagnosis Assessment Notes Treatment Notes Treatment Clinical Notes Aug, Decreased renal clearance (ICD-10 - R94.4) [facility] Other 10-26-2021 Evaluation note* Encounter Date Diagnosis [...] verbalizes understanding and agrees to treatment plan. [facility] Other Evaluation + Plan note Future Appointments Appointment Date:06/04/2023 01:45:00 PM Scheduled Provider: Location:[facility] Appointment Type:Urology CALL PAT FT Appointment Date:06/11/2023 02:45:00 PM Scheduled Provider: Location:[facility] Appointment Type:Urology FT Appointment Date:08/12/2023 11:00:00 AM Scheduled Provider:Garcia TURNER MD Location:[facility] Appointment Type:URO New Patient Diagnostic Tests Pending * [facility] Future Appointments Appointment Date:06/04/2023 01:45:00 PM Scheduled Provider: Location:[facility] Appointment Type:Urology CALL PAT FT Appointment Date:06/11/2023 02:45:00 PM Scheduled Provider: Location:[facility] Appointment Type:Urology FT Appointment Date:08/12/2023 11:00:00 AM Scheduled Provider:Garcia TURNER MD Location:[facility] Appointment Type:URO New Patient [facility] evaluation + Plan note Future Appointments Appointment Date:08/12/2023 11:00:00 AM Scheduled Provider:Garcia TURNER MD Location:[facility] Appointment Type:URO New Patient Diagnostic Tests Pending * Urine Culture [facility]11[facility] Future Appointments Appointment Date:12/16/2023 12:45:00 PM Scheduled Provider:Garcia TURNER MD Location:[facility] Appointment Type:URO [facility] Future Appointments Appointment Date:01/14/2024 11:00:00 AM Scheduled Provider:CARLOS A Ellison APRN, [place] Location:[facility] Appointment Type:URO Office Visit [facility] evaluation + Plan note Future Appointments Appointment Date:02/04/2024 11:30:00 AM Scheduled Provider:CARLOS A Ellison APRN, [place] [facility] Location:[facility] Appointment Type:URO Office Visit [facility] evaluation + Plan note Future Appointments Appointment Date:02/18/2024 11:30:00 AM Scheduled Provider:CARLOS A Ellison APRN, [place] Location:[facility] Appointment Type:URO Office Visit [facility] evaluation noteNo InformationNortLombardi Residential Other evaluation noteNo assessment information available [facility] Work Phone: Evaluation note* Diagnosis Onset Date Resolution Status Pulmonary nodule acute Perineal abscess chronic Wound pain chronic [facility] Work Phone: evaluation note* Diagnosis Onset Date Resolution Status Perineal abscess resolved Wound pain resolved Pulmonary nodule acute [facility] Work Phone: evaluation noteNoAppy Couple Other evaluation note* Diagnosis Onset Date Resolution Status Pulmonary nodule acute [facility] Work Phone: evaluation note* Diagnosis Onset Date Resolution Status Bruised ribs acute Fractured pelvis acute Hospital discharge follow-up acute Osteoporosis acute [facility] Work Phone: Evaluation note* Diagnosis Onset Date Resolution Status Bruised ribs acute Fractured pelvis acute Hospital discharge follow-up acute Osteoporosis acute COPD (chronic obstructive pulmonary disease) acute NANCY (generalized anxiety disorder) acute High cholesterol acute History of pulmonary embolus (PE) acute Hypertension acute Moderate major depression ac javier Prediabetes acute Psoriasis acute [facility] Work Phone: Evaluation note* Diagnosis Onset Date Resolution Status COPD (chronic obstructive pulmonary disease) acute NANCY (generalized anxiety disorder) acute High cholesterol acute History of pulmonary embolus (PE) acute Hypertension acute Moderate major depression ac javier Prediabetes acute Psoriasis acute 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 [facility] Work Phone: Evaluation note* Diagnosis Onset Date Resolution Status Admit Date MGUS (monoclonal gammopathy of unknown significance) acute October 10:57am Peripheral neuropathy acute [facility] 2024 10:57am Vitamin B12 deficiency acute [facility] 2024 10:57am [facility] Work Phone: History general Narrative - Reported* Type Description Date Medical History Hyperlipidemia Medical History Hypertension Medical History Osteoporosis Medical History psoriasis ear Medical History COPD (chronic obstructive pulmon radha disease) Medical History Pneumonia Surgical History Hip surgery post fall; had aileen and screws Surgical History Appendectomy: at age 16 Surgical History COLONOSCOPY- DR SHORT 9 Hospitalization History See above [facility] Other History general Narrative - [facility] [employer] Other History general Narrative - Reported* Type [...] History See above Hospitalization History pulmonary embolism [facility] Other Hospital course Narrative No data available for this section [facility] Discharge instructions No data available for this section [facility] Orders* Referral to Hematology Time Frame: 10/21/24, Location: None Selected [facility] Work Phone: Progress note Author Pete Erazo [facility] August 24, 2022 11:38am Note Date/Time August 24, 2022 1 1:31am [facility] at [address] [address] Hem/Onc Follow Up Note - OP Signed Patient: Jose Kim MR#: [id number] : 1945 Acct:[id number] Age/Sex: 77 / F Type: REG RCR [...] detected on protein electrophoresis. Immunofixation without monoclonality Wild Rose lambda ratio is preserved. Elevated quantitative IgG. [...] of Kyara Flynn NP. She lives in [facility] but gets all of her care through [facility]. Referred for elevated paraprotein labs, and [...] for coordination of care (as documented) and hsso-ns-sbom counseling of patient and/or family. [facility] - Medical History Medical History: Medical History [...] Globulin (PEP) 4.8 H, Albumin/Globulin (PEP) 0.7, Sktpd-5-Bmulpgotm 0.3, Eubha-1-Kyskpgwan 1.0,Beta Globulins 1.1, Gamma Globulins 2.5 H, M-Hernando Not observed, PEP Note , IgG 2783 H, IgA 259, IgM 205, Serum Immunofixation , Free Wild Rose LC, Quant 89.6 H, Free Lambda LC, Quant 43.1 H, Free Wild Rose/Lambda Ratio 2.08 H 08/20/22 09:35: PHA Creatinine [...] % (Auto) 78.1, Lymph % (Auto) 12.0, [place] % (Auto) 9.1, Eos % (Auto) 0.3, Baso % (Auto) 0.5, Nucleat RBC Rel Count 0.0, Neut # (Auto) 6.9, Lymph # (Auto) 1.1, [place] # (Auto) 0.8, Eos # (Auto) 0.0, [...] by Pete Erazo II, DO> 08/24/22 1138 [facility] Work Phone: Progress note No data available for this section [facility] Chief Complaint and Reason for Visit Chief [...] 2024 10:57am Breast cancer screening by mammogram [facility] 2024 10:57am Chief Complaint Admit Date 6 [...] acute cor pulmonale present (I26.99) Referral Organization [facility] Family [place] Referring Provider First Name Lety Referring Provider Last Name Gee Referring Provider Specialty Nurse Pract itioner Referred Organization [facility] [place] Referred Provider Venice Yepez Referred Address [address] [place], [place],[address] Referred Provider Specialty Hematology/O ncology Referral Priority Routine General Notes Spoke to Dr Yepez's office. They need referral before they will schedule pt Sarah Maldonado 05/09/2023 01:37:14 PM >referral received and faxed Reason Refer to urology; cancel referral for local urology as they cannot get her in until August 2023 Diagnosis 1 Gross hematuria (R31 .0) Referral Organization [facility] dilitronics Yolandakirsten lion [place] Referring Provider First Name Lety Referring Provider Last Name Gee Referring Provider Specialty Nurse Pract itioner Referred Provider Specialty Urology Referral Priority Routine Reason * Waiting for appt refer to Dr. Watts for closed displace right humerus fracture; not surgical candidate, increased pain Diagnosis 1 Other closed displac ed fracture of proximal end of right humerus, sequela (S42.291S) Referral Organization [facility] Family [place] Referring Provider First Name Lety Referring Provider Last Name Gee Referring Provider Specialty Nurse Pract itioner Referred Organization [facility] Pain Managemen t Referred Provider Joshua Watts Referred Address [address],[address] Referred Provider Specialty Pain Medicin e Referral Priority Routine General Notes Sarah Maldonaod 05/2023 01:45:49 PM > referral received and sent p2p Reason * 05/21 refer t o oncology for multiple lung nodules on CT (PET scan is ordered), hyperproteinemia, 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 Diagnosis 1 Multiple lung nodule s on CT (R91.8) Referral Organization [facility] Family Yolandain lion [place] Referring Provider First Name Lety Referring Provider Last Name Gee Referring Provider Specialty Nurse Pract itioner Referred Organization [facility] Referred Provider Venice Yepez Referred Address [address] [place], [place],[address] Referred Provider Specialty Hematology/O ncology Referral Priority [...] flu shotSickDISCUSS 6 MINUTE WALK TESTPt is MHFistc4u resultslab resultsRefills- Stiolto1 year fu COPDRefill- AlbuterolNeeds to get into the management trainee marketing sooner than June, and so they instructed [...] results1 yr f/u COPD4 month Follow up, zfxn6fpsqqioqxxMseop in UrineFR-ERmutual patientNo Informationswellingurology appointmentpain in necklabsrefillrefillanxietygross [...] End: April 07, 2024 Juliana Ye APRN [facility] Attending Provider Active Start: April 07, 2024 [...] section and content) DATE CREATED AUTHOR 09/14/2022 [facility] [facility] DATE CREATED AUTHOR AUTHOR'S ORGANIZ ATION 02/20/2024 [facility] DATE CREATED AUTHOR AUTHOR'S ORGANIZ ATION 02/24/2024 [facility] DATE CREATED AUTHOR AUTHOR'S ORGANIZ ATION 02/15/2025 [facility] FOR RECORDS PERTAINING TO PATIENTS [...] BE BASED ON THE PRIMARY CLINICAL RECORDS. [employer] provides no warranty or guarantee of the accuracy or completeness of information in this document.
[2025-03-22] MEDS: DOXYCYCLINE HYCLATE 100 MG in 0.9 % SODIUM CHLORIDE 100 ML IV ×2 (07:57→20:22)
[2025-03-22] MEDS: CHOLECALCIFEROL (VITAMIN D3) 25 MCG/1,000 UNITS TABLET 50 MCG PO (08:00)
[2025-03-22] MEDS: SERTRALINE HCL 50 MG TABLET 25 MG PO (08:00)
[2025-03-22] MEDS: ENOXAPARIN SODIUM 40 MG/0.4 ML SYRINGE SUBQ (08:00)
[2025-03-22] MEDS: DOCUSATE SODIUM 100 MG CAPSULE PO (08:00)
[2025-03-22] MEDS: METHYLPREDNISOLONE SOD SUCC PF 40 MG/ML VIAL IVP ×2 (08:00→21:35)
[2025-03-22] MEDS: IPRATROPIUM/ALBUTEROL SULFATE 3 ML AMPUL.NEB IH ×3 (08:09→20:44)
--- NOTE | 2025-03-22 08:40 | CM.NOTE ---
Rounds made with Dr. Loredo, no discharge today. Continue antibiotics and steroids.
--- NOTE | 2025-03-22 09:12 | PM.PN ---
Progress Note: Subjective Subjective Interval history: Patient is better. No vomiting. No abdominal pain. Persistent cough, wheezing and shortness of breath Exam Narrative Exam Narrative: [pt is awake and alert. oriented to place, time and person HEENT: [place] conjunctiva and NL buccal mucosa Neck: Supple, no tenderness Endocrine: No Thyromegaly. Vascular: No JVD or carotid bruit. Lymphatic: No cervical lymphadenopathy. Chest: Bilateral wheezing or rhonchi. Less prominent than previously seen Heart RRR, no extra sound or murmur. Abd: Soft, no tenderness, no rebound and no rigidity. Increase abd girth therefore clinically I could not exclude the possibility of intra abd mass or organomegaly. LE: No cyanosis or clubbing, no varices or edema. Upper and lower extremities muscle wasting atrophy. Neuro: A A O. Nl speech, comprehension and attention. Nl and symetrical motor and tone examination through out. []] Constitutional Vital Signs, click to edit/add: Last Vital Signs Temp 98.2 F 03/22/25 08:04 Pulse 63 03/22/25 08:04 Resp 16 03/22/25 08:04 BP 107/55 03/22/25 08:04 Pulse Ox 94 L 03/22/25 08:12 O2 Del Method Room Air 03/22/25 08:12 O2 Flow Rate 1 03/22/25 03:31 Progress Note: Objective Labs Labs: Short CBC 03/22/25 Range/Units 04:59 WBC 16.8 H (4.0-11.0) 10^3/uL Hgb 11.1 L (12.0-16.0) g/dL Hct 34.3 L (36.0-48.0) % Plt Count 232 (150-450) 10^3/uL BMP 03/22/25 04:59 Sodium 137 Potassium 4.5 Chloride 107 Carbon Dioxide 24.8 BUN 33.0 H Creatinine 1.06 H Glucose 167 H Calcium 8.8 Urine 03/21/25 Range/Units 23:26 Urine Color Yellow (YELLOW) Urine Clarity Clear (CLEAR) Urine pH 5.5 (5.0-9.0) Ur Specific [place] 1.020 (1.005-1.025) Urine Protein Trace (NEG/TRACE) mg/dL Urine Glucose (UA) Negative (NEGATIVE) mg/dL Progress Note: A&P Assessment and Plan (1) Hypoxemia: (2) Nausea & vomiting: (3) Acute exacerbation of COPD with asthma: (4) Acute bronchitis: Plan Acute COPD exacerbation, significant wheezing or rhonchi noted on the chest exam. Left lower lobe pneumonia seen on CT imaging. Acute hypoxic respiratory failure secondary to above. 88% on room air associated with tachypnea. Patient smoked for 30 years in the past. She quit about 20 years ago I started patient on oxygen supplementation. I started patient on albuterol Atrovent I started patient on doxycycline intravenously I started patient on Solu-Medrol twice a day. I requested COVID, RSV and influenza which came back negative. Patient may have other viruses which may include but not limited to parainfluenza, meta human pneumo virus not being tested here Requested CT chest to see if patient has any infiltrative pneumonia not seen on chest x-ray and rule out underlying malignancy. This came back positive for left lower lobe infiltration No lower extremities edema or tenderness to suggest DVT. No suspicion for pulmonary embolism. Home O2 eval prior to discharge Lung nodule seen on CT in the right upper lobe as well as the basilar consolidation seen in the left lower lobe. Patient is at risk having a lung cancer Previous smoking for more than 25 years Recommend repeat CAT scan in 6 months to ensure resolution of pneumonia and subsequently every year to screen for lung cancer to be arranged by PCP Vomiting without any abdominal pain. Likely secondary to significant spasmodic cough. Monitor and assess further. Mild protein calorie malnutrition. Low albumin. Muscle wasting and atrophy. Protein oral supplementation. ILIANA secondary to vomiting Resolved. Mild cognitive loss. Able to provide simple information. Unable to provide details. Her is able to. She may have underlying neurodegenerative disorder. She may have vascular dementia. This will need to be followed up by PCP in the outpatient setting. May need to have further investigation Depression and anxiety on Zoloft and gabapentin Osteoporosis on bisphosphonate DVT prophylaxis Subcutaneous Lovenox daily Anemia, no evidence of acute blood loss. Patient will likely require to have anemia workup to be done in the outpatient setting to be handled by PCP in collaboration with other needed outpatient providers. This may include but not limited to EGD, colonoscopy, referral to see hematology and other needed age-appropriate cancer screening. Chronic medical conditions not listed above, incidental findings seen on labs and imaging. These would need to be addressed. Could be addressed when time and condition are appropriate. Could be addressed in the outpatient setting by PCP collaboration with other needed outpatient providers.
[2025-03-22] MEDS: ENSURE HP 237 ML LIQUID PO ×2 (09:59→21:33)
--- NOTE | 2025-03-22 11:42 | SWNOTE1 ---
Important Message from [employer] reviewed and discussed with patient. Pt. verbalized understanding and signed the form. Original given to patient and copy placed in patient?s chart.
--- NOTE | 2025-03-22 11:44 | SWNOTE1 ---
SW met with pt to discuss dc needs. Pt lives at home with her . She has a few steps to get in to the home, once she is in it is 1 floor. Her son in law built her hand rails to use to enter the home. She does have a walker and cane at home. Voiced she likes the walker better as it is more sturdy. Pt does not drive. She voiced her does the grocery shopping, cooking, and cleaning at home. She does not have any services coming in at this time and has no anticipated discharge needs. SW to follow as needed. SW did let her know that physical therapy will be in to see her as well.
--- NOTE | 2025-03-22 14:30 | SWNOTE1 ---
SW stopped back in and spoke to pt in regards to physical therapy recommendation of home health. SW and pt spoke about home health services. Pt voiced she was familiar with what home health does and she has had them in the past. She stated she already has walker, cane, and transport chair. She stated they have already set up everything in the home that she needs. She stated she does not feel home health is necessary and at this time and does not feel she needs them. SW advised patient that she can always contact her PCP once she is discharged if she does decide she wants home health. She voiced understanding and was appreciative of SW offering to set up HH services. Pt refused HH at this time.
[2025-03-22] MEDS: ATORVASTATIN CALCIUM 20 MG TABLET PO (20:22)
--- NOTE | 2025-03-22 23:33 | PC.NURSE ---
void x's 1. pt. missed hat
[2025-03-23] VITALS (8 sets, daily range): BP systolic 128–136; BP diastolic 66–71; PULSE 65–97; TEMP 36.6–37.2; O2SAT 90–97
[2025-03-23] MEDS: GABAPENTIN 300 MG CAPSULE PO ×3 (05:45→21:22)
[2025-03-23] MEDS: DOCUSATE SODIUM 100 MG CAPSULE PO (08:19)
[2025-03-23] MEDS: DOXYCYCLINE HYCLATE 100 MG in 0.9 % SODIUM CHLORIDE 100 ML IV ×2 (08:19→20:23)
[2025-03-23] MEDS: METHYLPREDNISOLONE SOD SUCC PF 40 MG/ML VIAL IVP ×2 (08:19→21:22)
[2025-03-23] MEDS: CHOLECALCIFEROL (VITAMIN D3) 25 MCG/1,000 UNITS TABLET 50 MCG PO (08:19)
[2025-03-23] MEDS: ENSURE HP 237 ML LIQUID PO ×2 (08:19→21:22)
[2025-03-23] MEDS: 0.9 % SODIUM CHLORIDE 250 ML 10 ML IV (08:20)
[2025-03-23] MEDS: ENOXAPARIN SODIUM 40 MG/0.4 ML SYRINGE SUBQ (08:20)
[2025-03-23] MEDS: SERTRALINE HCL 50 MG TABLET 25 MG PO (08:20)
--- NOTE | 2025-03-23 08:30 | CM.NOTE ---
Rounds made with Dr. Loredo, pt still c/o increased SOB with activity and increased cough. No discharge today. RN did complete walk test, pt does not qualify for home oxygen at this time.
[2025-03-23] MEDS: IPRATROPIUM/ALBUTEROL SULFATE 3 ML AMPUL.NEB IH ×3 (09:18→20:46)
--- NOTE | 2025-03-23 09:46 | REH.PTDLY ---
Physical Therapy Daily Note PT Daily Note/Assess Start: 03/23/25 09:04 Freq: Status: Active Protocol: Document 03/23/25 09:05 MONAJOANNA (Rec: 03/23/25 09:46 KATIE [id number]) Physical Therapy Daily Note/Assessment Time In 08:35 Time Out 08:54 Subjective Pt up in bed upon arrival and feeling better. Pt states she keeps coughing, but nothing coming up. Therapeutic Exercise 7 Minutes (minutes) Therapeutic Exercise 0 Units Therapeutic Exercise Instructed in standing Steve LE exs 10x ea with exs Treatment including HR, marching, mini squats, and alt hip flexion for improved leg strength. Fatigue noted and pt takes 1 standing rest break with these. Therapeutic Activity 12 Minutes (minutes) Therapeutic Activity 1 Units Therapeutic Activity CGA with supine so sit transfers. Sit to stand Comments transfers CGA. Gait training with RW SBA 120 feet on room air, SpO2 at 90% during gait. No LOB noted. Mild SOB noted post gait, with pt reporting it is not bad once she sits down. Sit to stand transfers from chair consecutively 3x in a row. Total Therapy 19 Minutes Total Physical 1 Therapy Units Daily Note Summary Progressed with gait distance with RW today with mild SOB noted, SpO2 stays at 90%. No LOB noted, SBA for safety. Pt plans to go home at [place] from hospital, at home with who does most of the house work pt states. Denies any pain post rx.
--- NOTE | 2025-03-23 10:59 | P.PN_ITS ---
Progress Note: Subjective Subjective Interval history: Patient is better. No vomiting. No abdominal pain. Persistent cough, wheezing and shortness of breath Exam Narrative Exam Narrative: [pt is awake and alert. oriented to place, time and person HEENT: [place] conjunctiva and NL buccal mucosa Neck: Supple, no tenderness Endocrine: No Thyromegaly. Vascular: No JVD or carotid bruit. Lymphatic: No cervical lymphadenopathy. Chest: Bilateral wheezing or rhonchi. Much less prominent than admission states Heart RRR, no extra sound or murmur. Abd: Soft, no tenderness, no rebound and no rigidity. Increase abd girth therefore clinically I could not exclude the possibility of intra abd mass or organomegaly. LE: No cyanosis or clubbing, no varices or edema. Upper and lower extremities muscle wasting atrophy. Neuro: A A O. Nl speech, comprehension and attention. Nl and symetrical motor and tone examination through out. []] Constitutional Vital Signs, click to edit/add: Last Vital Signs Temp 98.9 F 03/23/25 08:28 Pulse 91 H 03/23/25 09:23 Resp 16 03/23/25 09:23 BP 128/66 03/23/25 08:28 Pulse Ox 97 03/23/25 09:23 O2 Del Method Room Air 03/23/25 09:23 O2 Flow Rate 1 03/22/25 03:31 Progress Note: A&P Assessment and Plan (1) Hypoxemia: (2) Nausea & vomiting: (3) Acute exacerbation of COPD with asthma: (4) Acute bronchitis: Plan Acute COPD exacerbation, significant wheezing or rhonchi noted on the chest exam. Left lower lobe pneumonia seen on CT imaging. Acute hypoxic respiratory failure secondary to above. 88% on room air associated with tachypnea. Patient smoked for 30 years in the past. She quit about 20 years ago I started patient on oxygen supplementation. I started patient on albuterol Atrovent I started patient on doxycycline intravenously I started patient on Solu-Medrol twice a day. I requested COVID, RSV and influenza which came back negative. Patient may have other viruses which may include but not limited to parainfluenza, meta human pneumo virus not being tested here Requested CT chest to see if patient has any infiltrative pneumonia not seen on chest x-ray and rule out underlying malignancy. This came back positive for left lower lobe infiltration No lower extremities edema or tenderness to suggest DVT. No suspicion for pulmonary embolism. Home O2 eval prior to discharge Patient continues to feel better. Potential discharge tomorrow Lung nodule seen on CT in the right upper lobe as well as the basilar consolidation seen in the left lower lobe. Patient is at risk having a lung cancer Previous smoking for more than 25 years Recommend repeat CAT scan in 6 months to ensure resolution of pneumonia and subsequently every year to screen for lung cancer to be arranged by PCP Vomiting without any abdominal pain. Likely secondary to significant spasmodic cough. Monitor and assess further. Mild protein calorie malnutrition. Low albumin. Muscle wasting and atrophy. Protein oral supplementation. ILIANA secondary to vomiting Resolved. Mild cognitive loss. Able to provide simple information. Unable to provide details. Her is able to. She may have underlying neurodegenerative disorder. She may have vascular dementia. This will need to be followed up by PCP in the outpatient setting. May need to have further investigation Depression and anxiety on Zoloft and gabapentin Osteoporosis on bisphosphonate DVT prophylaxis Subcutaneous Lovenox daily Anemia, no evidence of acute blood loss. Patient will likely require to have anemia workup to be done in the outpatient setting to be handled by PCP in collaboration with other needed outpatient providers. This may include but not limited to EGD, colonoscopy, referral to see hematology and other needed age-appropriate cancer screening. Chronic medical conditions not listed above, incidental findings seen on labs and imaging. These would need to be addressed. Could be addressed when time and condition are appropriate. Could be addressed in the outpatient setting by PCP collaboration with other needed outpatient providers.
--- NOTE | 2025-03-23 14:32 | CM.NOTE ---
Case Management spoke with patient regarding COPD. Pt does follow with [facility] pulmonology group yearly. Pt last appointment was about 6 month ago. Discussed Pulmonary rehab with patient. Pt states she was active in Pulmonary rehab in the past and would be interested in returning. Pt given pamphlet with contact number. Patient will reach out to her Mechanical Artist to discuss pulmonary rehab.
[2025-03-23] MEDS: ATORVASTATIN CALCIUM 20 MG TABLET PO (21:22)
[2025-03-24] VITALS: BP 122/57; PULSE 87; TEMP 36.9; O2SAT 92
[2025-03-24 04:00] VITALS: BP 134/67; PULSE 57; TEMP 36.6; O2SAT 98
[2025-03-24] MEDS: GABAPENTIN 300 MG CAPSULE PO (06:08)
[2025-03-24 07:45] VITALS: BP 114/70; PULSE 79; TEMP 36.6; O2SAT 95
--- NOTE | 2025-03-24 08:00 | CM.NOTE ---
Rounds made with Dr. Loredo, pt will discharge to home today. Pt had walk test completed on 03/23- pt does not qualify for home oxygen. VSS. Pt will have f/u appt scheduled with PCP and [facility]. Pt continues to refuse HH services. Pt verbalizes understanding of discharge follow-ups and importance of f/u with PCP.
[2025-03-24] MEDS: METHYLPREDNISOLONE SOD SUCC PF 40 MG/ML VIAL IVP (08:19)
[2025-03-24] MEDS: ENOXAPARIN SODIUM 40 MG/0.4 ML SYRINGE SUBQ (08:47)
[2025-03-24] MEDS: DOCUSATE SODIUM 100 MG CAPSULE PO (08:47)
[2025-03-24] MEDS: SERTRALINE HCL 50 MG TABLET 25 MG PO (08:47)
[2025-03-24] MEDS: CHOLECALCIFEROL (VITAMIN D3) 25 MCG/1,000 UNITS TABLET 50 MCG PO (08:47)
[2025-03-24] MEDS: DOXYCYCLINE HYCLATE 100 MG in 0.9 % SODIUM CHLORIDE 100 ML IV (08:48)
[2025-03-24] MEDS: ENSURE HP 237 ML LIQUID PO (08:48)
--- NOTE | 2025-03-24 09:19 | P.DS_ITS ---
DS: Providers Provider Date of admission: 03/20/25 22:07 Primary care physician: Non-Staff Physician, Consults: 03/22/25 09:16 Physical Therapy Eval and Treat Routine Reason for consultation: Weakness DS: Diagnosis Discharge Diagnosis (1) Hypoxemia: (2) Nausea & vomiting: (3) Acute exacerbation of COPD with asthma: (4) Acute bronchitis: Plan As listed above and others that are not listed DS: Summary Hospital Course Hospital Course: Mrs. Jc a 79-year-old female who came in with cough, wheezing and congestion. She was found to have the following: Acute COPD exacerbation, significant wheezing or rhonchi noted on the chest exam. Left lower lobe pneumonia seen on CT imaging. Acute hypoxic respiratory failure secondary to above. 88% on room air associated with tachypnea. Patient smoked for 30 years in the past. She quit about 20 years ago I started patient on oxygen supplementation. I started patient on albuterol Atrovent I started patient on doxycycline intravenously I started patient on Solu-Medrol twice a day. I requested COVID, RSV and influenza which came back negative. Patient may have other viruses which may include but not limited to parainfluenza, meta human pneumo virus not being tested here Requested CT chest to see if patient has any infiltrative pneumonia not seen on chest x-ray and rule out underlying malignancy. This came back positive for l eft lower lobe infiltration No lower extremities edema or tenderness to suggest DVT. No suspicion for pulmonary embolism. Home O2 eval prior to discharge. Patient did not qualify for home oxygen. Patient is feeling significantly better and will be discharged home today. Patient will be recommended to have follow-up appointment with pulmonary team. She follows up with Dr. Gomes. Lung nodule seen on CT in the right upper lobe as well as the basilar consolidation seen in the left lower lobe. Patient is at risk having a lung cancer Previous smoking for more than 25 years Recommend repeat CAT scan in 3 months to ensure resolution of pneumonia and subsequently every year to screen for lung cancer to be arranged by PCP Vomiting without any abdominal pain. Likely secondary to significant spasmodic cough. Monitor and assess further. Mild protein calorie malnutrition. Low albumin. Muscle wasting and atrophy. Protein oral supplementation. ILIANA secondary to vomiting Resolved. Mild cognitive loss. Able to provide simple information. Unable to provide details. Her is able to. She may have underlying neurodegenerative disorder. She may have vascular dementia. This will need to be followed up by PCP in the outpatient setting. May need to have further investigation Depression and anxiety on Zoloft and gabapentin Osteoporosis on bisphosphonate DVT prophylaxis Subcutaneous Lovenox daily Anemia, no evidence of acute blood loss. Patient will likely require to have anemia workup to be done in the outpatient setting to be handled by PCP in collaboration with other needed outpatient providers. This may include but not limited to EGD, colonoscopy, referral to see hematology and other needed age-appropriate cancer screening. Chronic medical conditions not listed above, incidental findings seen on labs and imaging. These would need to be addressed. Could be addressed when time and condition are appropriate. Could be addressed in the outpatient setting by PCP collaboration with other needed outpatient providers. Patient has multiple complex medical issues as listed above and others that are not listed. All appear to be stable. Patient is feeling great. Back to baseline. Resolution of hypoxemia. At this time, I do not have any clear or strong clinical justification to extend inpatient hospitalization. Patient however will require close and frequent monitoring as well as additional work- up, investigation and therapeutic intervention that could take place from this point on post discharge. That is to prevent relapse, decompensation, rehospitalization and other medical implications. I instructed patient to ask her primary care doctor to obtain [facility] record entirely to address abnormalities seen on labs and imaging that I have and have not addressed during this hospitalization, follow-up on pending blood work, imaging and pathology is if available and to follow-up on needed medical care in the outpatient setting. Time Spent with Patient Time attestation: Total time spent providing and/or coordinating discharge services: Exam Narrative Exam Narrative: [pt is awake and alert. oriented to place, time and person HEENT: [employer] conjunctiva and NL buccal mucosa Neck: Supple, no tenderness Endocrine: No Thyromegaly. Vascular: No JVD or carotid bruit. Lymphatic: No cervical lymphadenopathy. Chest: Almost complete resolution bilateral wheezing or rhonchi. Heart RRR, no extra sound or murmur. Abd: Soft, no tenderness, no rebound and no rigidity. Increase abd girth therefore clinically I could not exclude the possibility of intra abd mass or organomegaly. LE: No cyanosis or clubbing, no varices or edema. Upper and lower extremities muscle wasting atrophy. Neuro: A A O. Nl speech, comprehension and attention. Nl and symetrical motor and tone examination through out. []] Constitutional Vital Signs, click to edit/add: Last Vital Signs Temp 98 F 03/24/25 07:45 Pulse 79 03/24/25 07:45 Resp 18 03/24/25 07:45 BP 114/70 03/24/25 07:45 Pulse Ox 95 03/24/25 07:45 O2 Del Method Room Air 03/24/25 07:45 O2 Flow Rate 1 03/22/25 03:31 Discharge Plan Discharge Disposition: Home, Self-Care Discharge Medications: New prednisone 20 mg tablet 20 mg PO DAILY 5 Days Qty: 5 0RF doxycycline monohydrate 100 mg tablet 100 mg PO BID 4 Days Qty: 8 0RF amoxicillin-pot clavulanate 875-125 mg tablet 1 tab PO BID Qty: 20 0RF Continued atorvastatin 20 mg tablet 20 mg PO QPM Trelegy Ellipta 200-62.5-25 mcg blister with device 1 inh inhalation Q24H cholecalciferol (vitamin D3) 25 mcg (1,000 unit) capsule 2,000 unit PO DAILY albuterol sulfate 2.5 mg /3 mL (0.083 %) solution for nebulization 2.5 mg inhalation QID PRN (Reason: shortness of breath or wheezing) ferrous sulfate [FeroSul] 325 mg (65 mg iron) tablet 325 mg PO DAILY sertraline 25 mg tablet 25 mg PO Q24H alendronate 70 mg tablet 70 mg PO QWEEK docusate sodium 100 mg capsule 100 mg PO .QD gabapentin 300 mg capsule 300 mg PO TID Print Language: Occitan Activity Restrictions/Additional Instructions: I may not have addressed or treated all of your medical illnesses or the abnormal blood work or imaging studies during this hospitalization. Please ask your primary care provider to obtain [place] records entirely to follow up on all of the abnormal physical, laboratory, and imaging findings that I have not addressed. Please return back to the emergency room or seek medical attention if your symptoms worsen or return. I would recommend that your primary care doctor or lung specialist Dr. Gomes arrange for a repeat CAT scan of the chest in 3 months to ensure complete resolution of abnormalities seen and subsequently low-dose radiation CAT scan of the chest every year to screen for lung cancer. Discharging you from [place] does not mean that your medical care ends here and now. You may still need additional monitoring, work up, investigation, and treatment plan to be handled from this point on by out patient providers including your primary care provider and specialists. For any medication question, please contact your retail pharmacist or your primary care provider. Thank you. Forms: Portal Instructions Referrals: GREGORIO GOMES MD [Physician, Family Practice] Follow Up Appointments: 04/06 @ 11:30am with [facility] [phone]
--- NOTE | 2025-03-24 09:23 | CM.NOTE ---
Pt at this time does not remember her PCP name, called pt has Petra Holliday as PCP. F/U will be scheduled prior to discharge.
[2025-03-24 09:24] VITALS: PULSE 92; O2SAT 97
[2025-03-24] MEDS: IPRATROPIUM/ALBUTEROL SULFATE 3 ML AMPUL.NEB IH (09:24)
--- NOTE | 2025-03-24 11:06 | REH.PTDLY ---
Physical Therapy Daily Note PT Daily Note/Assess Start: 03/23/25 09:04 Freq: Status: Active Protocol: Document 03/24/25 10:30 KATIE (Rec: 03/24/25 11:06 KSTEINJOANNA [id number]) Physical Therapy Daily Note/Assessment Time In 10:15 Time Out 10:32 Subjective Pt in chair upon arrival, states she is leaving at some point today. Feeling better, still coughing. Therapeutic Exercise 6 Minutes (minutes) Therapeutic Exercise 0 Units Therapeutic Exercise Instructed in standing Steve LE exs 10x ea with exs Treatment including HR, marching, hip flex, and hip abd for improved strength. CGA as pt states she feels like she could 'go forward' at times. Pt does no have LOB with exs. Therapeutic Activity 9 Minutes (minutes) Therapeutic Activity 1 Units Therapeutic Activity Sit to stand transfers SBA. Gait training with RW 180 Comments feet S with no assistance needed. Pt does have SOB during gait, cues that she can stop and take standing rest break, but pt declines. Focuses on breathing technique. SpO2 at 87% post gait, increases to 92% after sitting for 2 mins. Pt reports she has not ambulated that far in a long time, home is compact. Total Therapy 15 Minutes Total Physical 1 Therapy Units Daily Note Summary No assistance needed today with gait training with RW, pt does fatigue with longer distance gait with a drop in O2 sats to 87%. Rises quickly once sitting down. Pt reports the plan is to be DC to home today. Goals are met for pt at this time.
[2025-03-24 11:21] VITALS: PULSE 84; TEMP 37; O2SAT 94
== END 2025-03-24 11:43 | disposition home or self-care (01) | DRG 193 ==
LOC: ER 21:37 → MS 22:14
PROVIDERS: Emergency Medicine; Admitting Provider Internal Medicine; Emergency Provider Internal Medicine; Visit Provider Internal Medicine
DX: J18.9 Pneumonia, unspecified organism (principal); J96.01 Acute respiratory failure with hypoxia; J44.1 Chronic obstructive pulmonary disease with (acute) exacerbation; E44.1 Mild protein-calorie malnutrition; N17.9 Acute kidney failure, unspecified; J44.0 Chronic obstructive pulmonary disease with (acute) lower respiratory infection; Z79.51 Long term (current) use of inhaled steroids; Z79.899 Other long term (current) drug therapy; F32.A Depression, unspecified; E78.5 Hyperlipidemia, unspecified; G31.84 Mild cognitive impairment of uncertain or unknown etiology; F41.9 Anxiety disorder, unspecified; M81.0 Age-related osteoporosis without current pathological fracture; Z79.83 Long term (current) use of bisphosphonates; R91.1 Solitary pulmonary nodule; R11.10 Vomiting, unspecified; D64.9 Anemia, unspecified; Z68.24 Body mass index [BMI] 24.0-24.9, adult; Z87.891 Personal history of nicotine dependence
CPT/HCPCS: 36415; 71045; 71250; 80048; 80053; 81001; 83735; 85025; 85027; 87420; 87804; 87811; 93005; 94640; 94761; 96361; 96365; 96375; 97161; 97530; 99285; J0696; J1650; J2919